=== PATIENT | male | born 1935 | race Caucasian/White ===

== ENCOUNTER 2017-02-05 07:52 | Day surgery (SDC) | payer MEDICARE ==
[~2017-02-05 07:52] MED LIST: Bupivacaine 0.25%/EPINEPHrine 1:200,000 10 ML SDV ONE; Lactated Ringers 1,000 ML IV SCH
[2017-02-05] MEDS ORDERED: Lidocaine 2% 5 ML SDV ONE (08:42)
[2017-02-05] MEDS ORDERED: diphenhydrAMINE 50 MG/ML SDV ONE (08:42)
[2017-02-05] MEDS ORDERED: fentaNYL 100 MCG/2 ML SDV ONE (08:43)
[2017-02-05] MEDS ORDERED: Propofol 200 MG/20 ML SDV ONE (08:43)
[2017-02-05] MEDS ORDERED: Midazolam 1 MG/ML 2 ML SDV ONE (08:43)
--- NOTE | 2017-02-05 10:01 | PCM.PREANE ---
Preanesthetic Assessment - Anesthesia/Transfusion/Family Hx Anesthesia History: Prior Anesthesia Without Reaction Other Type of Anesthesia Reaction Comment: Denies any known problems in the past Family History of Anesthesia Reaction: No Transfusion History: No Prior Transfusion(s) Intubation History: Unknown - Review of Systems General: No Symptoms Pulmonary: No Symptoms Cardiovascular: No Symptoms Gastrointestinal: No Symptoms Neurological: No Symptoms Other: Reports: None - Physical Assessment NPO Status Date: 02/04/17 NPO Status Time: 19:00 O2 Sat by Pulse Oximetry: 94 Respiratory Rate: 16 Vital Signs: Last Vital Signs Temp 36.3 C 02/05/17 08:33 Pulse 71 02/05/17 08:33 Resp 16 02/05/17 08:33 BP 178/62 H 02/05/17 08:33 Pulse Ox 94 L 02/05/17 08:33 Height: 1.75 m Weight: 83.007 kg ASA Class: 3 Mental Status: Alert & Oriented x3 Airway Class: Mallampati = 2 Dentition: Reports: Normal Dentition Thyro-Mental Finger Breadths: 2 Mouth Opening Finger Breadths: 2 ROM/Head Extension: Limited/Partial Lungs: Clear to Auscultation, Normal Respiratory Effort Cardiovascular: Regular Rate, Regular Rhythm - Allergies Allergies/Adverse Reactions: Allergies Allergy/AdvReac Type Severity Reaction Status Date / Time celery [Celery] Allergy Hives Verified 04/12/15 09:06 Penicillins Allergy Rash Verified 04/12/15 09:06 Adhesives Allergy Hives Uncoded 02/23/14 14:38 Leachy Nuts Allergy Hives Uncoded 01/30/17 10:48 Parsley Allergy mild hives Uncoded 01/30/17 10:48 [place] Seeds Allergy Hives Uncoded 02/23/14 14:40 - Blood Blood Available: No - Anesthesia Plan Pre-Op Medication Ordered: None Beta Josh: Metoprolol Med Last Dose Date: 02/04/17 Med Last Dose Time: 18:00 - Acknowledgements Anesthesia Type Planned: MAC Pt an Appropriate Candidate for the Planned Anesthesia: Yes Alternatives and Risks of Anesthesia Discussed w Pt/Guardian: Yes Pt/Guardian Understands and Agrees with Anesthesia Plan: Yes PreAnesthesia Questionnaire HEENT History: Reports: Hard of Hearing, Impaired Vision, Other (See Below) Other HEENT History: 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16, wears glasses , tracey hearing aids Cardiovascular History: Reports: High Cholesterol, Hypertension Gastrointestinal History: Reports: Other (See Below) (h/o tubular adenoma) Genitourinary History: Reports: Prostate Disorder Musculoskeletal History: Reports: Other (See Below) Other Musculoskeletal History: fx fingers Neurological History: Reports: TIA, Other (See Below) (intentional tremor) Other Neuro History: unsteady gait, TIA March,-weaker on left side, also memomy and walk affected Psychiatric History: Reports: Depression Endocrine/Metabolic History: Reports: Diabetes, Type II (for about 10 years, glucose levell 147 today) Hematologic History: Reports: Anemia - Infectious Disease History Infectious Disease History: Reports: Chicken Pox - Past Surgical History HEENT Surgical History: Reports: Cataract Surgery, Eye Surgery, Tonsillectomy Other HEENT Surgeries/Procedures: prostetic left eye, 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, GI Surgical History: Reports: Hernia, Inguinal Other GI Surgeries/Procedures: inguinal hernia repair x2 Male Surgical History: Reports: TURP-Transurethral Resection of Prostate - SUBSTANCE USE Smoking Status *Q: Former Smoker Tobacco Use Within Last Twelve Months: No Days Per Week of Alcohol Use: 7 Number of Drinks Per Day: 3 Total Drinks Per Week: 21 Recreational Drug Use History: No - HOME MEDS Home Medications: Home Meds Furosemide [Lasix] 20 mg PO DAILY 02/23/14 [History] Losartan Potassium 100 mg PO BRK 02/23/14 [History] Metoprolol Tartrate 100 mg PO BID 02/23/14 [History] atorvaSTATin Calcium [Atorvastatin Calcium] 40 mg PO BEDTIME 02/23/14 [History] metFORMIN [Glucophage] 1,000 mg PO BID 02/23/14 [History] Clopidogrel [Plavix] 75 mg PO DAILY #30 tablet 04/13/15 [Rx] Cholecalciferol (Vitamin D3) [Vitamin D3] 2,000 units PO DAILY 01/30/17 [History ] Lutein/Min/Vit C/Vit E Acetate [Ocuvite Lutein] 1 tab PO DAILY 01/30/17 [History ] Polyvinyl Alcohol [Artificial Tears] 1 drop EYEBOTH ASDIRECTED PRN 01/30/17 [ History] SitaGLIPtin [Januvia] 100 mg PO DAILY 01/30/17 [History] Tetrahydrozoline HCl [Visine] 1 drop EYELF ASDIRECTED PRN 01/30/17 [History] prednisoLONE Acetate [Prednisolone Acetate] 1 drop EYERT BID 01/30/17 [History] - CURRENT (IN HOUSE) MEDS Current Meds: Current Medications Lactated Ringer's (Ringers, Lactated) 1,000 mls @ 100 mls/hr IV ASDIRECTED JACOB Last Admin: 02/05/17 08:31 Dose: 100 mls/hr Discontinued Medications Bupivacaine HCl/Epinephrine Bitart (Marcaine 0.25%/Epinephrine 1:200,000) Confirm Administered Dose 20 ml .ROUTE .STK-MED ONE Stop: 02/05/17 07:17 Diphenhydramine HCl (Benadryl) Confirm Administered Dose 50 mg .ROUTE .STK-MED ONE Stop: 02/05/17 08:43 Fentanyl (Sublimaze) Confirm Administered Dose 100 mcg .ROUTE .STK-MED ONE Stop: 02/05/17 08:44 Lidocaine (Xylocaine-Mpf 2%) Confirm Administered Dose 5 ml .ROUTE .STK-MED ONE Stop: 02/05/17 08:43 Midazolam HCl (Versed 1 Mg/Ml) Confirm Administered Dose 2 mg .ROUTE .STK-MED ONE Stop: 02/05/17 08:44 Propofol (Diprivan 20 Ml) Confirm Administered Dose 200 mg .ROUTE .STK-MED ONE Stop: 02/05/17 08:44
[2017-02-05] MEDS ORDERED: Tetracaine 0.5% Ophth Soln 15 ML Bottle ONE (10:56)
[2017-02-05] MEDS ORDERED: Dexamethasone/Tobramycin 0.1-0.3% Ophth Oint 3.5 GM Tube ONE (10:56)
[2017-02-05] MEDS ORDERED: Clindamycin Phosphate in D5W 50 ML ONE (11:16)
[2017-02-05] MEDS ORDERED: Clindamycin Phosphate in D5W 600 MG in Premix Bag 1 BAG IV ONE ×2 (11:16)
--- NOTE | 2017-02-05 12:30 | PCM48HPAN ---
Post Anesthesia Note - EVALUATION WITHIN 48HRS OF ANESTHETIC Vital Signs in Normal Range: Yes Patient Participated in Evaluation: Yes Respiratory Function Stable: Yes Airway Patent: Yes Cardiovascular Function Stable: Yes Hydration Status Stable: Yes Pain Control Satisfactory: Yes Nausea and Vomiting Control Satisfactory: Yes Mental Status Recovered: Yes - COMMENTS/OBSERVATIONS Free Text/Narrative:: no anesthesia problems, patient skipped recovery room phase of postoperative care
[2017-02-05 13:03] VITALS: BP 137/72
--- NOTE | 2017-02-06 16:27 | PCM.OPNOTE ---
- General Post-Op/Procedure Note Date of Surgery/Procedure: 02/05/17 Operative Procedure(s): left lower eyelid tarsal strip Pre Op Diagnosis: left lower eyelid ectropion Post-Op Diagnosis: Same Anesthesia Technique: Local, MAC Primary Surgeon: Flavia Ni Principal Software Architect: Hilda Mcknight Complications: None Condition: Good Free Text/Narrative:: [id number]
--- NOTE | 2017-02-06 22:32 | OR ---
SURGEON: KULDEEP LU MD DATE OF PROCEDURE: 02/05/2017 PREOPERATIVE DIAGNOSIS: Left lower eyelid ectropion. POSTOPERATIVE DIAGNOSIS: Left lower eyelid ectropion. PROCEDURE: Left lower eyelid tarsal strip. ANESTHESIA: Local MAC. CHICKEN STUFFER: Hilda Mcknight PA-C. INDICATIONS: Mr. 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 Risks and benefits of tarsal strip procedure anchoring to the lateral canthus were discussed with him and he was in agreement to proceed. Risks were including, but not limited to, bleeding, infection, damage to underlying or overlying structures, possible need for future interventions and possible scarring. PROCEDURE IN DETAIL: After informed consent was obtained and placed on the chart, the patient was brought to the operating theater and laid in supine position. After adequate local MAC anesthesia was obtained, the area was prepped and draped, and a time- out was completed to confirm side and site. Attention was then paid to the lateral tarsus and a lateral canthotomy was completed and the lateral tarsus was dissected for approximately 1 cm. Once adequately dissected and the mucosa and skin have been removed. This was anchored to the lateral orbital rim using a deep 4-0 Prolene stitch in two horizontal mattress sutures. Once adequately anchored here, the muscle layer was reapproximated with a 4-0 Monocryl and the skin was closed using a 5-0 Chromic stitch in a horizontal mattress fashion. He tolerated this well and all counts of needles were correct at the end of the case. The wound was dressed with TobraDex ointment. FOLLOWUP INSTRUCTIONS: The patient will see us next week in clinic or sooner if any problems, questions, or concerns. HEGGTHE / MODL /[id number]
== END 2017-02-05 12:42 | disposition home or self-care (01) ==
LOC: MW.SDS 07:52
PROVIDERS: ATTEND Plastic Surgery
DX: H02.105 Unspecified ectropion of left lower eyelid (principal); I10 Essential (primary) hypertension; E78.00 Pure hypercholesterolemia, unspecified; F32.9 Major depressive disorder, single episode, unspecified; E11.9 Type 2 diabetes mellitus without complications; Z88.0 Allergy status to penicillin; Z91.018 Allergy to other foods; Z98.890 Other specified postprocedural states; Z87.891 Personal history of nicotine dependence
CPT/HCPCS: 67917; 82962; A9270; J1200; J2250; J3010; J7120; 00140; J2704

== ENCOUNTER 2017-11-29 12:18 | Emergency (ER) | payer MEDICARE, OTHER ==
--- NOTE | 2017-11-29 12:33 | EDM.PDOC ---
ED HPI GENERAL MEDICAL PROBLEM - General Chief Complaint: Back Pain or Injury Stated Complaint: PAIN IN HIS BOTTOM Time Seen by Provider: 11/29/17 12:33 Source of Information: Reports: Patient History Limitations: Reports: No Limitations - History of Present Illness INITIAL COMMENTS - FREE TEXT/NARRATIVE: HISTORY AND PHYSICAL: History of present illness: 82-year-old male presenting emergency department with chief complaint of lower back pain starting this a.m. it 9:30. Patient states that he woke up early this morning and felt fine but then around 9:30 AM began to have right-sided lower back pain. States that he has had back pain before but not as significant as this. He denies any history of trauma to the area but may have twisted wrong. He denies any recent illness, fevers, chills, kidney stones, chest pain, palpitations, shortness of breath, syncopal episodes, focal neurologic deficits. Review of systems: As per history of present illness and below otherwise all systems reviewed and negative. Past medical history: As per history of present illness and as reviewed below otherwise noncontributory. Surgical history: As per history of present illness and as reviewed below otherwise noncontributory. Social history: No reported history of drug or alcohol abuse. Family history: As per history of present illness and as reviewed below otherwise noncontributory. Physical exam: HEENT: Atraumatic, normocephalic, pupils reactive, negative for conjunctival pallor or scleral icterus, mucous membranes moist, throat clear, neck supple, nontender, trachea midline. Lungs: Clear to auscultation, breath sounds equal bilaterally, chest nontender. Heart: S1S2, regular, negative for clicks, rubs, or JVD. Abdomen: Soft, nondistended, nontender. Negative for masses or hepatosplenomegaly. Negative for costovertebral tenderness. Pelvis: Stable nontender. Genitourinary: Deferred. Rectal: Deferred. Extremities: Atraumatic, negative for cords or calf pain. Neurovascular unremarkable. Neuro: Awake, alert, oriented. Cranial nerves II through XII unremarkable. Cerebellum unremarkable. Motor and sensory unremarkable throughout. Exam nonfocal. Back: Patient is tender to palpation along L3-L5 with more tenderness on his right side. There is no significant foraminal episodes or step-offs. There is significant paraspinal muscle spasms along lumbar area. Diagnostics: Lumbar x-ray Therapeutics: Toradol 60 mg IM 1, Flexeril 10 mg by mouth 3 times a day Impression: Lumbar strain Plan: Lumbar x-ray revealed no acute osseous abnormalities. There was significant chronic changes noted. Patient had good relief from the Toradol 60 mg IM. He was discharged with a prescription for Flexeril 10 mg by mouth 3 times a day and instructed to follow-up with his primary care physician Dr. ma. He was also instructed to return to emergency department if he had any new or worsening symptoms. He may need further imaging to define any acute injury such as CT or MRI, however he did not have a traumatic event. Right Low Back Pain Score (Numeric/FACES): 8 - Related Data Allergies Allergy/AdvReac Type Severity Reaction Status Date / Time celery [Celery] Allergy Hives Verified 11/29/17 13:30 Penicillins Allergy Rash Verified 11/29/17 13:30 Adhesives Allergy Hives Uncoded 11/29/17 13:30 Leachy Nuts Allergy Hives Uncoded 11/29/17 13:30 Parsley Allergy mild hives Uncoded 11/29/17 13:30 [place] Seeds Allergy Hives Uncoded 11/29/17 13:30 Home Meds: Home Meds Furosemide [Lasix] 20 mg PO DAILY 02/23/14 [History] Losartan Potassium 100 mg PO BRK 02/23/14 [History] Metoprolol Tartrate 100 mg PO BID 02/23/14 [History] atorvaSTATin Calcium [Atorvastatin Calcium] 40 mg PO BEDTIME 02/23/14 [History] metFORMIN [Glucophage] 1,000 mg PO BID 02/23/14 [History] Clopidogrel [Plavix] 75 mg PO DAILY #30 tablet 04/13/15 [Rx] Cholecalciferol (Vitamin D3) [Vitamin D3] 2,000 units PO DAILY 01/30/17 [History ] Lutein/Min/Vit C/Vit E Acetate [Ocuvite Lutein] 1 tab PO DAILY 01/30/17 [History ] Polyvinyl Alcohol [Artificial Tears] 1 drop EYEBOTH ASDIRECTED PRN 01/30/17 [ History] SitaGLIPtin [Januvia] 100 mg PO DAILY 01/30/17 [History] Tetrahydrozoline HCl [Visine] 1 drop EYELF ASDIRECTED PRN 01/30/17 [History] prednisoLONE Acetate [Prednisolone Acetate] 1 drop EYERT BID 01/30/17 [History] Past Medical History HEENT History: Reports: Hard of Hearing, Impaired Vision, Other (See Below) Other HEENT History: 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16, wears glasses , tracey hearing aids Cardiovascular History: Reports: High Cholesterol, Hypertension Gastrointestinal History: Reports: Other (See Below) (h/o tubular adenoma) Genitourinary History: Reports: Prostate Disorder Musculoskeletal History: Reports: Other (See Below) Other Musculoskeletal History: fx fingers Neurological History: Reports: TIA, Other (See Below) (intentional tremor) Other Neuro History: unsteady gait, TIA March,-weaker on left side, also memomy and walk affected Psychiatric History: Reports: Depression Endocrine/Metabolic History: Reports: Diabetes, Type II (for about 10 years, glucose levell 147 today) Hematologic History: Reports: Anemia - Infectious Disease History Infectious Disease History: Reports: Chicken Pox - Past Surgical History HEENT Surgical History: Reports: Cataract Surgery, Eye Surgery, Tonsillectomy Other HEENT Surgeries/Procedures: prostetic left eye, 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 ED EXAM, GENERAL - Physical Exam Exam: See Below Course - Vital Signs Last Recorded V/S: Last Vital Signs Temp 98.7 F 11/29/17 13:31 Pulse 73 11/29/17 13:31 Resp 18 11/29/17 13:31 BP 158/50 H 11/29/17 13:31 Pulse Ox 95 11/29/17 13:31 - Orders/Labs/Meds Orders: Active Orders 24 hr Category Date Time Status Lumbar Spine 2 or 3V [CR] Stat Exams 11/29/17 13:46 Taken Meds: Medications Discontinued Medications Generic Name Dose Route Start Last Admin Trade Name Freq PRN Reason Stop Dose Admin Ketorolac Tromethamine 60 mg 11/29/17 13:45 11/29/17 14:07 Toradol IM 11/29/17 13:46 60 mg ONETIME ONE Administration Departure - Departure Time of Disposition: 15:37 Disposition: Home, Self-Care 01 Condition: Good Clinical Impression: Paraspinal muscle spasm, Lumbar back pain with radiculopathy affecting right lower extremity - Discharge Information Referrals: PCP,None [Primary Care Provider] - Forms: ED Department Discharge Additional Instructions: My general discharge The following information is given to patients seen in the emergency department who are being discharged to home. This information is to outline your options for follow-up care. We provide all patients seen in our emergency department with a follow-up referral. The need for follow-up, as well as the timing and circumstances, are variable depending upon the specifics of your emergency department visit. If you don't have a primary care physician on staff, we will provide you with a referral. We always advise you to contact your personal physician following an emergency department visit to inform them of the circumstance of the visit and for follow-up with them and/or the need for any referrals to a consulting specialist. The emergency department will also refer you to a specialist when appropriate. This referral assures that you have the opportunity for follow-up care with a specialist. All of these measure are taken in an effort to provide you with optimal care, which includes your follow-up. Under all circumstances we always encourage you to contact your private physician who remains a resource for coordinating your care. When calling for follow-up care, please make the office aware that this follow-up is from your recent emergency room visit. If for any reason you are refused follow-up, please contact the [facility] Emergency Department at and asked to speak to the emergency department charge nurse. [address] [address] Take Tylenol up to 3000 mg per acute pain. Take Flexeril as prescribed. Return to emergency department if any new or worsening symptoms. Follow-up with her primary care provider on Friday. - My Orders Last 24 Hours: My Active Orders 11/29/17 13:46 Lumbar Spine 2 or 3V [CR] Stat - Assessment/Plan Last 24 Hours: My Active Orders 11/29/17 13:46 Lumbar Spine 2 or 3V [CR] Stat
[2017-11-29] MEDS ORDERED: Ketorolac 60 MG/2 ML SDV IM ONE (13:45)
[2017-11-29 19:35] VITALS: BP 158/55
--- NOTE | 2017-12-01 14:00 | CR ---
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 Site : [id number] Study: XRay Spine Lumbar [id number] 2:33:25 PM Ordering Physician: Kike Casillas Final Report: INDICATION: Low back pain. TECHNIQUE: Lumbar spine 3 view. 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 There is grade 2 anterior listhesis of L5 on S1. Anterior posterior alignment is otherwise maintained. Vertebral body height and contour are preserved without evidence of compression fracture. 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 Moderate to severe loss of intervertebral disc space height at L5-S1. Mild loss of intervertebral disc space height at the L1-L2, L2-L3 and L3-L4. Multilevel facet joint degenerative changes. There is atherosclerotic calcification of the abdominal aorta. The surgical clips overlying the right inguinal region. There are pelvic phleboliths. A 3 mm density in the right mid abdomen is indeterminate in location but may represent a renal calculus. Dictated by Michael Richardson MD @ Nov 29 2017 3:07PM (Electronic Signature) Report Signed by Proxy. LISBETH
== END 2017-11-29 15:49 | disposition home or self-care (01) ==
LOC: MW.ED 12:18
DX: S39.012A Strain of muscle, fascia and tendon of lower back, initial encounter (principal); M54.16 Radiculopathy, lumbar region; I10 Essential (primary) hypertension; E11.9 Type 2 diabetes mellitus without complications; X58.XXXA Exposure to other specified factors, initial encounter; Z91.018 Allergy to other foods; Z88.0 Allergy status to penicillin; Z79.899 Other long term (current) drug therapy; Z79.84 Long term (current) use of oral hypoglycemic drugs
CPT/HCPCS: 72100; 96372; 99283; J1885

== ENCOUNTER 2018-07-30 10:03 | Emergency (ER) | payer MEDICARE ==
[2018-07-30] MEDS ORDERED: Sodium Chloride 0.9% 2.5 ML Syringe FLUSH PRN (10:07)
[2018-07-30] MEDS ORDERED: Sodium Chloride 0.9% 10 ML Syringe FLUSH PRN (10:07)
--- NOTE | 2018-07-30 10:14 | EDM.PDOC ---
ED HPI GENERAL MEDICAL PROBLEM - General Chief Complaint: Chest Pain Stated Complaint: WEAK, CHEST PAIN AND TROUBLE BREATHING Time Seen by Provider: 07/30/18 10:07 Source of Information: Reports: Patient History Limitations: Reports: No Limitations - History of Present Illness INITIAL COMMENTS - FREE TEXT/NARRATIVE: HISTORY AND PHYSICAL: History of present illness: Patient is an 82-year-old male who presents to the emergency room with multiple complaints. He states he has had sore throat, decreased appetite, fatigue and nausea 7 days. He states over the past week these symptoms have progressively gotten worse. Over the past two days he has developed abdominal pain, midsternal chest pain, and diarrhea over the past 2 days. Complaints of his throat and mouth feeling dry and has difficulty swallowing. States he has decreased his PO intake due to the this difficulty. But does mention he is able to drink scotch in the evenings without difficulty. He denies any recent falls , injuries, or trauma. 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 He denies any fever, chills, cough or shortness of breath. Denies any vomiting, constipation, dysuria. He does see Dr. Newman at [facility] for type 2 diabetes, hypertension, GERD , BPH. He takes multiple medications which he states he has been compliant. Recently had an echocardiogram here by Dr Gutierrez on 04/2018. Review of systems: As per history of present illness and below otherwise all systems reviewed and negative. Past medical history: As per history of present illness and as reviewed below otherwise noncontributory. Surgical history: As per history of present illness and as reviewed below otherwise noncontributory. Social history: See social history for further information Family history: As per history of present illness and as reviewed below otherwise noncontributory. Physical exam: General: Well-developed and well-nourished 82-year-old male. Alert and oriented. Nontoxic appearing and in no acute distress. 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 TMs normal bilaterally, throat clear, neck supple, nontender, trachea midline. No drooling or trismus noted. No meningeal signs. No hot potato voice noted. Lungs: Diminished throughout, breath sounds equal bilaterally, chest nontender. Heart: S1S2, regular rate and rhythm without overt murmur Abdomen: Soft, nondistended, diffuse tenderness throughout. Negative for masses or hepatosplenomegaly. Negative for costovertebral tenderness. Pelvis: Stable nontender. Genitourinary: Deferred. Rectal: Deferred. Skin: Intact, warm, dry. No lesions or rashes noted. Extremities: Atraumatic, moves all per self, negative for cords or calf pain. Neurovascular unremarkable. Neuro: Awake, alert, oriented. Cranial nerves II through XII unremarkable. Cerebellum unremarkable. Motor and sensory unremarkable throughout. Exam nonfocal. Notes: Lab work is unremarkable with the exception of elevated BNP. Negative strep and influenza screening. And chest x-ray shows mild left basilar atelectasis and borderline cardiomegaly Vital signs remain stable. He has not taken his morning medications; will give him IV Lasix while here. Patient reports he no longer has chest pain and declines the Nitropaste. CT of the abdomen and pelvis shows no acute findings. Small trace bilateral pleural effusions. Mild cardiomegaly. Diverticulosis without diverticulitis. Vital signs remain stable. He states he has no pain at this time. I did offer him admission for continued observation, he states he feels better and would like to be discharged to home. Supportive care measures were reviewed and discussed. He voices understanding and is agreeable to plan of care. Denies any further questions or concerns at this time. Dr Newman was informed of this patient's ER visit. He would like the patient to follow up with him in the next 1-2 weeks. Patient continues to decline admission as he would like to return home. He states he is asymptomatic. Vital signs are stable. Diagnostics: CBC, CMP, troponin, EKG, BNP, stool study, chest x-ray, CT abd/pelvis Therapeutics: Saline lock, ASA, Lasix Prescription: None Impression: Chest pain, unknown etiology Viral Illness Nonspecific abdominal pain Plan: 1. Keep taking your medications as prescribed. 2. Increase your oral fluids to prevent dehydration. 3. Please follow up with Dr Newman in the next 1-2 days. Return to the ED as needed as discussed. Definitive disposition and diagnosis as appropriate pending reevaluation and review of above. chest, abdomen Pain Score (Numeric/FACES): 2 - Related Data Allergies Allergy/AdvReac Type Severity Reaction Status Date / Time celery [Celery] Allergy Hives Verified 07/30/18 10:12 Penicillins Allergy Rash Verified 07/30/18 10:12 Adhesives Allergy Hives Uncoded 07/30/18 10:12 Leachy Nuts Allergy Hives Uncoded 07/30/18 10:12 Parsley Allergy mild hives Uncoded 07/30/18 10:12 Stanly Seeds Allergy Hives Uncoded 07/30/18 10:12 Home Meds: Home Meds Furosemide [Lasix] 20 mg PO DAILY 02/23/14 [History] Losartan Potassium 100 mg PO BRK 02/23/14 [History] Metoprolol Tartrate 100 mg PO BID 02/23/14 [History] atorvaSTATin Calcium [Atorvastatin Calcium] 40 mg PO BEDTIME 02/23/14 [History] metFORMIN [Glucophage] 1,000 mg PO BID 02/23/14 [History] Clopidogrel [Plavix] 75 mg PO DAILY #30 tablet 04/13/15 [Rx] Cholecalciferol (Vitamin D3) [Vitamin D3] 2,000 units PO DAILY 01/30/17 [History ] Polyvinyl Alcohol [Artificial Tears] 1 drop EYEBOTH ASDIRECTED PRN 01/30/17 [ History] SitaGLIPtin [Januvia] 100 mg PO DAILY 01/30/17 [History] Tetrahydrozoline HCl [Visine] 1 drop EYERT ASDIRECTED PRN 01/30/17 [History] Vit A/Vit C/Vit E/Zinc/Copper [Preservision] 1 tab PO BID 07/30/18 [History] Past Medical History HEENT History: Reports: Hard of Hearing, Impaired Vision, Other (See Below) Other HEENT History: 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16, wears glasses , tracey hearing aids Cardiovascular History: Reports: High Cholesterol, Hypertension Gastrointestinal History: Reports: Other (See Below) Genitourinary History: Reports: Prostate Disorder Musculoskeletal History: Reports: Other (See Below) Other Musculoskeletal History: fx fingers Neurological History: Reports: TIA, Other (See Below) Other Neuro History: unsteady gait, TIA March,-weaker on left side, also memomy and walk affected Psychiatric History: Reports: Depression Endocrine/Metabolic History: Reports: Diabetes, Type II Hematologic History: Reports: Anemia - Infectious Disease History Infectious Disease History: Reports: Chicken Pox - Past Surgical History HEENT Surgical History: Reports: Cataract Surgery, Eye Surgery, Tonsillectomy Other HEENT Surgeries/Procedures: prostetic left eye, 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 ED EXAM, GENERAL - Physical Exam Exam: See Below (See dictation) Course - Vital Signs Last Recorded V/S: Last Vital Signs Temp 98.8 F 07/30/18 12:00 Pulse 70 07/30/18 12:00 Resp 16 07/30/18 12:00 BP 133/60 07/30/18 12:00 Pulse Ox 93 L 07/30/18 12:00 - Orders/Labs/Meds Orders: Active Orders 24 hr Category Date Time Status EKG Documentation Completion [RC] STAT Care 07/30/18 10:07 Active Hemoccult [Fecal Occult Blood Collection] [] Care 07/30/18 10:32 Active ASDIRECTED RT Aerosol Therapy [RC] ASDIRECTED Care 07/30/18 10:39 Active CULTURE STOOL + CAMPY+SHIGATOX [] Stat Lab 07/30/18 10:09 Ordered CULTURE STREP A CONFIRMATION [] Stat Lab 07/30/18 10:34 Results STREP SCRN A RAPID W CULT CONF [] Stat Lab 07/30/18 10:34 Results Sodium Chloride 0.9% [Saline Flush] Med 07/30/18 10:07 Active 10 ml FLUSH ASDIRECTED PRN Sodium Chloride 0.9% [Saline Flush] Med 07/30/18 10:07 Active 2.5 ml FLUSH ASDIRECTED PRN Saline Lock Insert [OM.PC] Stat Oth 07/30/18 10:07 Ordered Medication Orders Sodium Chloride (Saline Flush) 10 ml FLUSH ASDIRECTED PRN PRN Reason: Keep Vein Open Sodium Chloride (Saline Flush) 2.5 ml FLUSH ASDIRECTED PRN PRN Reason: Keep Vein Open Labs: Laboratory Tests 07/30/18 07/30/18 07/30/18 Range/Units 10:13 10:13 10:13 WBC 7.25 (4.0-11.0) K/uL RBC 4.24 L (4.50-5.90) M/uL Hgb 13.8 (13.0-17.0) g/dL Hct 41.9 (38.0-50.0) % MCV 98.8 H (80.0-98.0) fL MCH 32.5 H (27.0-32.0) pg MCHC 32.9 (31.0-37.0) g/dL RDW Std Deviation 51.4 (28.0-62.0) fl RDW Coeff of Theresa 14 (11.0-15.0) % Plt Count 197 (150-400) K/uL MPV 9.60 (7.40-12.00) fL Neut % (Auto) 75.0 (48.0-80.0) % Lymph % (Auto) 15.4 L (16.0-40.0) % [place] % (Auto) 9.2 (0.0-15.0) % Eos % (Auto) 0.3 (0.0-7.0) % Baso % (Auto) 0.1 (0.0-1.5) % Neut # (Auto) 5.4 (1.4-5.7) K/uL Lymph # (Auto) 1.1 (0.6-2.4) K/uL [place] # (Auto) 0.7 (0.0-0.8) K/uL Eos # (Auto) 0.0 (0.0-0.7) K/uL Baso # (Auto) 0.0 (0.0-0.1) K/uL Nucleated RBC % 0.0 /100WBC Nucleated RBCs # 0 K/uL Sodium 140 (136-148) mmol/L Potassium 4.1 (3.5-5.1) mmol/L Chloride 102 (98-107) mmol/L Carbon Dioxide 25.6 (21.0-32.0) mmol/L BUN 17 (7.0-18.0) mg/dL Creatinine 1.2 (0.8-1.3) mg/dL Est Cr Clr Drug Dosing 46.71 mL/min Estimated GFR (MDRD) 58.1 ml/min Glucose 189 H (74-106) mg/dL Calcium 9.6 (8.5-10.1) mg/dL Total Bilirubin 0.8 (0.2-1.0) mg/dL AST 19 (15-37) IU/L ALT 26 (14-63) IU/L Alkaline Phosphatase 106 (46-116) U/L Troponin I < 0.050 (0.000-0.056) ng/mL B-Natriuretic Peptide 3499 H (<100) PG/ML Total Protein 7.4 (6.4-8.2) g/dL Albumin 3.9 (3.4-5.0) g/dL Globulin 3.5 (2.6-4.0) g/dL Albumin/Globulin Ratio 1.1 (0.9-1.6) Amylase 38 (25-115) U/L Lipase 91 (73-393) U/L Meds: Medications Generic Name Dose Route Start Last Admin Trade Name Freq PRN Reason Stop Dose Admin Sodium Chloride 10 ml 07/30/18 10:07 Saline Flush FLUSH ASDIRECTED PRN Keep Vein Open Sodium Chloride 2.5 ml 07/30/18 10:07 Saline Flush FLUSH ASDIRECTED PRN Keep Vein Open Discontinued Medications Generic Name Dose Route Start Last Admin Trade Name Freq PRN Reason Stop Dose Admin Albuterol/Ipratropium 3 ml 07/30/18 10:39 07/30/18 10:52 Duoneb 3.0-0.5 Mg/3 Ml NEB 07/30/18 10:40 3 ml ONETIME ONE Administration Aspirin 324 mg 07/30/18 10:15 07/30/18 10:26 Aspirin PO 07/30/18 10:16 324 mg ONETIME ONE Administration Furosemide 20 mg 07/30/18 11:41 07/30/18 12:02 Lasix IVPUSH 07/30/18 11:42 20 mg NOW ONE Administration Nitroglycerin 1 gm 07/30/18 11:42 07/30/18 12:05 Nitro-Bid 2% TOP 07/30/18 11:43 Not Given ONETIME ONE Departure - Departure Time of Disposition: 13:37 Disposition: Home, Self-Care 01 Clinical Impression: Nonspecific abdominal pain, Viral illness Chest pain, unspecified Qualifiers: Chest pain type: unspecified Qualified Code(s): R07.9 - Chest pain, unspecified Instructions: Nonspecific Chest Pain, Abdominal Pain, Adult, [id number], Viral Illness, Adult Referrals: PCP,Unknown [Ordering Only Provider] - Forms: ED Department Discharge Additional Instructions: The following information is given to patients seen in the emergency department who are being discharged to home. This information is to outline your options for follow-up care. We provide all patients seen in our emergency department with a follow-up referral. The need for follow-up, as well as the timing and circumstances, are variable depending upon the specifics of your emergency department visit. If you don't have a primary care physician on staff, we will provide you with a referral. We always advise you to contact your personal physician following an emergency department visit to inform them of the circumstance of the visit and for follow-up with them and/or the need for any referrals to a consulting specialist. The emergency department will also refer you to a specialist when appropriate. This referral assures that you have the opportunity for follow-up care with a specialist. All of these measure are taken in an effort to provide you with optimal care, which includes your follow-up. Under all circumstances we always encourage you to contact your private physician who remains a resource for coordinating your care. When calling for follow-up care, please make the office aware that this follow-up is from your recent emergency room visit. If for any reason you are refused follow-up, please contact the [facility] Emergency Department at and asked to speak to the emergency department charge nurse. [facility] [address] [place] [phone] [address] [address] 1. Keep taking your medications as prescribed. 2. Increase your oral fluids to prevent dehydration. 3. Please follow up with Dr Newman in the next 1-2 days. Return to the ED as needed as discussed. - My Orders Last 24 Hours: My Active Orders 07/30/18 10:07 EKG Documentation Completion [RC] STAT Sodium Chloride 0.9% [Saline Flush] 10 ml FLUSH ASDIRECTED PRN Sodium Chloride 0.9% [Saline Flush] 2.5 ml FLUSH ASDIRECTED PRN Saline Lock Insert [OM.PC] Stat 07/30/18 10:09 CULTURE STOOL + CAMPY+SHIGATOX [RM] Stat 07/30/18 10:32 Hemoccult [Fecal Occult Blood Collection] [RC] ASDIRECTED 07/30/18 10:34 CULTURE STREP A CONFIRMATION [RM] Stat STREP SCRN A RAPID W CULT CONF [RM] Stat 07/30/18 10:39 RT Aerosol Therapy [RC] ASDIRECTED - Assessment/Plan Last 24 Hours: My Active Orders 07/30/18 10:07 EKG Documentation Completion [RC] STAT Sodium Chloride 0.9% [Saline Flush] 10 ml FLUSH ASDIRECTED PRN Sodium Chloride 0.9% [Saline Flush] 2.5 ml FLUSH ASDIRECTED PRN Saline Lock Insert [OM.PC] Stat 07/30/18 10:09 CULTURE STOOL + CAMPY+SHIGATOX [RM] Stat 07/30/18 10:32 Hemoccult [Fecal Occult Blood Collection] [RC] ASDIRECTED 07/30/18 10:34 CULTURE STREP A CONFIRMATION [RM] Stat STREP SCRN A RAPID W CULT CONF [RM] Stat 07/30/18 10:39 RT Aerosol Therapy [RC] ASDIRECTED
[2018-07-30] MEDS ORDERED: Aspirin 81 MG Tab.Chew PO ONE (10:15)
[2018-07-30] MEDS ORDERED: Albuterol/Ipratropium 3.0-0.5 MG/3 ML Neb Soln NEB ONE (10:39)
[2018-07-30 10:53] LABS: CHLORIDE,CL 102 mmol/L (98-107); SODIUM,NA 140 mmol/L (136-148)
--- NOTE | 2018-07-30 10:57 | CR ---
EXAMINATION: Portable chest radiograph. HISTORY: Chest pain. FINDINGS: The trachea is midline. The heart is borderline in size. The cardiomediastinal silhouette is within normal limits. No pulmonary infiltrates, effusions or pneumothorax. Mild left basilar atelectasis. Aortic calcifications are noted. Osseous structures appear unremarkable. IMPRESSION: 1. Mild left basilar atelectasis and borderline cardiomegaly.
[2018-07-30] MEDS ORDERED: Furosemide 40 MG/4 ML VIAL IVPUSH ONE (11:41)
[2018-07-30] MEDS ORDERED: Nitroglycerin 2% Oint 1 GM UD Packet TOP ONE (11:42)
--- NOTE | 2018-07-30 13:20 | CT ---
CT of the abdomen and pelvis without contrast. HISTORY: Pain TECHNIQUE: Axial CT images were obtained of the abdomen and pelvis without contrast. Coronal and sagittal reconstructions obtained. FINDINGS: There were small bilateral pleural effusions with adjacent atelectasis. The heart is borderline in size. Coronary artery calcifications are noted. The liver, spleen, adrenal glands, and pancreas appear unremarkable for noncontrast examination. The gallbladder appears normal. There is no bulky retroperitoneal lymphadenopathy. No abdominal ascites. Aortic calcifications are noted. There are no calcifications noted within the kidneys or along the courses of the ureters bilaterally. The large and small bowel are normal in caliber without evidence of obstruction. The appendix appears normal. Diverticulosis without evidence of diverticulitis. There is no bulky pelvic lymphadenopathy. No free fluid. No free air. Small bilateral urinary diverticulum noted. Degenerative changes noted within the lumbar spine without acute osseous abnormalities. IMPRESSION: 1. No acute findings within the abdomen or pelvis. 2. Small/trace bilateral pleural effusions. 3. Mild cardiomegaly. 4. Diverticulosis without evidence of diverticulitis.
[2018-07-30 13:48] VITALS: BP 132/63
== END 2018-07-30 13:44 | disposition home or self-care (01) ==
LOC: MW.ED 10:03
DX: R07.9 Chest pain, unspecified (principal); B34.9 Viral infection, unspecified; R10.9 Unspecified abdominal pain; E78.00 Pure hypercholesterolemia, unspecified; I10 Essential (primary) hypertension; E11.9 Type 2 diabetes mellitus without complications; Z79.84 Long term (current) use of oral hypoglycemic drugs; Z79.899 Other long term (current) drug therapy
CPT/HCPCS: 36415; 71045; 74176; 80053; 82150; 83690; 83880; 84484; 85025; 87081; 87804; 87880; 93005; 94640; 96374; 99285; A9270; J1940; 99284; J7620-GY

== ENCOUNTER 2019-04-29 03:47 | Inpatient (IN) | payer MEDICARE ==
[2019-04-29] MEDS ORDERED: Sodium Chloride 0.9% 2.5 ML Syringe FLUSH PRN (03:53)
[2019-04-29] MEDS ORDERED: Sodium Chloride 0.9% 10 ML Syringe FLUSH PRN (03:53)
--- NOTE | 2019-04-29 04:13 | CR ---
INDICATION: Cough TECHNIQUE: Chest radiograph 1 view COMPARISON: 07/30/2018 FINDINGS: Mediastinum: The mediastinum is normal in appearance. The heart silhouette is normal in size and morphology. Lung: Consolidation in the left lung base is present with minimal right basilar atelectasis and small lung volumes. The apices are obscured by the patient`s chin. Small left pleural effusion noted. No pneumothorax is identified. Bone and Soft tissue: A chondroid type lesion is present within the left proximal humerus measuring 1.3 cm. IMPRESSIONS: 1. Consolidation in the left lung base is present with minimal right basilar atelectasis and small lung volumes. These findings can be seen with atelectasis and/or pneumonia. 2. Small left pleural effusion noted. Dictated by Blu Aparicio MD @ 04/29/2019 4:12:00 AM Dictated by: Blu Aparicio MD @ 04/29/2019 04:12:05 (Electronically Signed)
[2019-04-29 04:24] LABS: BLOOD UREA NITROGEN,BUN 20 mg/dL (7.0-18.0); CARBON DIOXIDE,CO2 27.5 mmol/L (21.0-32.0); CHLORIDE,CL 104 mmol/L (98-107); GLUCOSE RANDOM 209 mg/dL (74-106); SODIUM,NA 139 mmol/L (136-148)
[2019-04-29] MEDS ORDERED: Furosemide 40 MG/4 ML VIAL IVPUSH ONE (04:59)
[2019-04-29] MEDS ORDERED: Enoxaparin 100 MG/1 ML Syringe SUBCUT ONE (05:13)
--- NOTE | 2019-04-29 05:13 | EDM.PDOC ---
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 His description seems more consistent with paroxysmal nocturnal dyspnea he states he has peripheral edema that is somewhat chronic. Review of systems: As per history of present illness and below otherwise all systems reviewed and negative. Past medical history: As per history of present illness and as reviewed below otherwise noncontributory. Surgical history: As per history of present illness and as reviewed below otherwise noncontributory. Social history: No reported history of drug or alcohol abuse. Family history: As per history of present illness and as reviewed below otherwise noncontributory. Physical exam: HEENT: Atraumatic, normocephalic, pupils reactive, negative for conjunctival pallor or scleral icterus, mucous membranes moist, throat clear, neck supple, nontender, trachea midline. Lungs: Diminished with bibasilar crackles, breath sounds equal bilaterally, chest nontender. Heart: S1S2, irregularly irregular, negative for clicks, rubs, or JVD. Abdomen: Soft, nondistended, nontender. Negative for masses or hepatosplenomegaly. Negative for costovertebral tenderness. Pelvis: Stable nontender. Genitourinary: Deferred. Rectal: Deferred. Extremities: Atraumatic, negative for cords or calf pain. Neurovascular unremarkable. 3+ edema noted Neuro: Awake, alert, oriented. Follows commands moves all extremities limited grossly nonfocal exam Diagnostics: CBC CMP troponin PT/INR chest x-ray EKG BNP CTA chest was cultured 2 UA and lactic acid Therapeutics: IV O2 monitor Lasix 40 mg IV Impression: #1 congestive heart failure #2 atrial fibrillation Definitive disposition and diagnosis as appropriate pending reevaluation and review of above. no pain Pain Score (Numeric/FACES): 0 - Related Data Allergies Allergy/AdvReac Type Severity Reaction Status Date / Time celery [Celery] Allergy Hives Verified 04/29/19 04:01 Penicillins Allergy Rash Verified 04/29/19 04:01 Adhesives Allergy Hives Uncoded 04/29/19 04:01 Leachy Nuts Allergy Hives Uncoded 04/29/19 04:01 Parsley Allergy mild hives Uncoded 04/29/19 04:01 [place] Seeds Allergy Hives Uncoded 04/29/19 04:01 Home Meds: Home Meds Furosemide [Lasix] 20 mg PO DAILY 02/23/14 [History] Losartan Potassium 100 mg PO BRK 02/23/14 [History] Metoprolol Tartrate 100 mg PO BID 02/23/14 [History] atorvaSTATin Calcium [Atorvastatin Calcium] 40 mg PO BEDTIME 02/23/14 [History] metFORMIN [Glucophage] 1,000 mg PO BID 02/23/14 [History] Clopidogrel [Plavix] 75 mg PO DAILY #30 tablet 04/13/15 [Rx] Cholecalciferol (Vitamin D3) [Vitamin D3] 2,000 units PO DAILY 01/30/17 [History ] Polyvinyl Alcohol [Artificial Tears] 1 drop EYEBOTH ASDIRECTED PRN 01/30/17 [ History] SitaGLIPtin [Januvia] 100 mg PO DAILY 01/30/17 [History] Tetrahydrozoline HCl [Visine] 1 drop EYERT ASDIRECTED PRN 01/30/17 [History] Vit A/Vit C/Vit E/Zinc/Copper [Preservision] 1 tab PO BID 07/30/18 [History] Past Medical History HEENT History: Reports: Hard of Hearing, Impaired Vision, Other (See Below) Other HEENT History: 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16, wears glasses , tracey hearing aids Cardiovascular History: Reports: High Cholesterol, Hypertension Respiratory History: Reports: None Gastrointestinal History: Reports: Other (See Below) Genitourinary History: Reports: Prostate Disorder Musculoskeletal History: Reports: Other (See Below) Other Musculoskeletal History: fx fingers Neurological History: Reports: TIA, Other (See Below) Other Neuro History: unsteady gait, TIA March,-weaker on left side, also memomy and walk affected Psychiatric History: Reports: Depression Endocrine/Metabolic History: Reports: Diabetes, Type II Hematologic History: Reports: Anemia - Infectious Disease History Infectious Disease History: Reports: Chicken Pox, Mumps - Past Surgical History HEENT Surgical History: Reports: Cataract Surgery, Eye Surgery, Tonsillectomy Other HEENT Surgeries/Procedures: prostetic left eye, 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, GI Surgical History: Reports: Hernia, Inguinal Other GI Surgeries/Procedures: inguinal hernia repair x2 Male Surgical History: Reports: TURP-Transurethral Resection of Prostate Social & Family History - Family History Family Medical History: Noncontributory Cardiac: Reports: Hypertension, CA - Tobacco Use Smoking Status *Q: Former Smoker Used Tobacco, but Quit: Yes Month/Year Tobacco Last Used: 1994 - Caffeine Use Caffeine Use: Reports: None - Recreational Drug Use Recreational Drug Use: No ED ROS GENERAL - Review of Systems Review Of Systems: Comprehensive ROS is negative, except as noted in HPI. ED EXAM, GENERAL - Physical Exam Exam: See Below (See dictation) Course - Vital Signs Last Recorded V/S: Last Vital Signs Temp 36.1 C 04/29/19 05:11 Pulse 92 04/29/19 05:11 Resp 16 04/29/19 05:11 BP 145/70 H 04/29/19 05:11 Pulse Ox 96 04/29/19 05:11 - Orders/Labs/Meds Orders: Active Orders 24 hr Category Date Time Status Cardiac Monitoring [RC] . DIRECTED Care 04/29/19 03:53 Active EKG Documentation Completion [RC] STAT Care 04/29/19 03:53 Active EKG Documentation Completion [RC] STAT Care 04/29/19 05:15 Active Oxygen Therapy, ED [RC] ASDIRECTED Care 04/29/19 03:53 Active Ang Chest [CT] Stat Exams 04/29/19 05:03 Ordered CULTURE BLOOD [BC] Stat Lab 04/29/19 05:23 Received CULTURE BLOOD [BC] Stat Lab 04/29/19 05:34 Received UA RFX ADRIANO AND CULT IF INDIC [URIN] Stat Lab 04/29/19 05:11 Ordered Sodium Chloride 0.9% [Saline Flush] Med 04/29/19 03:53 Active 10 ml FLUSH ASDIRECTED PRN Sodium Chloride 0.9% [Saline Flush] Med 04/29/19 03:53 Active 2.5 ml FLUSH ASDIRECTED PRN Blood Culture x2 Reflex Set [OM.PC] Stat Oth 04/29/19 05:11 Ordered Saline Lock Insert [OM.PC] Stat Oth 04/29/19 03:53 Ordered Medication Orders Sodium Chloride (Saline Flush) 10 ml FLUSH ASDIRECTED PRN PRN Reason: Keep Vein Open Last Admin: 04/29/19 05:10 Dose: 10 ml Sodium Chloride (Saline Flush) 2.5 ml FLUSH ASDIRECTED PRN PRN Reason: Keep Vein Open Last Admin: 04/29/19 05:10 Dose: 2.5 ml Labs: Laboratory Tests 04/29/19 04/29/19 04/29/19 Range/Units 03:55 03:55 03:55 WBC 5.88 (4.0-11.0) K/uL RBC 3.79 L (4.50-5.90) M/uL Hgb 12.2 L (13.0-17.0) g/dL Hct 37.2 L (38.0-50.0) % MCV 98.2 H (80.0-98.0) fL MCH 32.2 H (27.0-32.0) pg MCHC 32.8 (31.0-37.0) g/dL RDW Std Deviation 51.9 (28.0-62.0) fl RDW Coeff of Theresa 15 (11.0-15.0) % Plt Count 207 (150-400) K/uL MPV 9.30 (7.40-12.00) fL Neut % (Auto) 65.1 (48.0-80.0) % Lymph % (Auto) 18.4 (16.0-40.0) % [place] % (Auto) 12.1 (0.0-15.0) % Eos % (Auto) 4.1 (0.0-7.0) % Baso % (Auto) 0.3 (0.0-1.5) % Neut # (Auto) 3.8 (1.4-5.7) K/uL Lymph # (Auto) 1.1 (0.6-2.4) K/uL [place] # (Auto) 0.7 (0.0-0.8) K/uL Eos # (Auto) 0.2 (0.0-0.7) K/uL Baso # (Auto) 0.0 (0.0-0.1) K/uL Nucleated RBC % 0.0 /100WBC Nucleated RBCs # 0 K/uL INR 1.06 ABG pH (7.35-7.45) ABG pCO2 (35-45) mmHG ABG pO2 (75-100) mmHG ABG HCO3 (22-26) mEq/L ABG Total CO2 ABG Base Excess (-2.0-2.0) Lactate (0.20-2.00) mmol/L Sodium 139 (136-148) mmol/L Potassium 5.0 (3.5-5.1) mmol/L Chloride 104 (98-107) mmol/L Carbon Dioxide 27.5 (21.0-32.0) mmol/L BUN 20 H (7.0-18.0) mg/dL Creatinine 1.1 (0.8-1.3) mg/dL Est Cr Clr Drug Dosing 51.78 mL/min Estimated GFR (MDRD) > 60.0 ml/min Glucose 209 H (74-106) mg/dL Calcium 8.6 (8.5-10.1) mg/dL Total Bilirubin 0.6 (0.2-1.0) mg/dL AST 46 H (15-37) IU/L ALT 62 (14-63) IU/L Alkaline Phosphatase 165 H (46-116) U/L Troponin I < 0.050 (0.000-0.056) ng/mL B-Natriuretic Peptide (<100) PG/ML Total Protein 6.3 L (6.4-8.2) g/dL Albumin 3.1 L (3.4-5.0) g/dL Globulin 3.2 (2.6-4.0) g/dL Albumin/Globulin Ratio 1.0 (0.9-1.6) 04/29/19 04/29/19 04/29/19 Range/Units 03:55 04:10 05:34 WBC (4.0-11.0) K/uL RBC (4.50-5.90) M/uL Hgb (13.0-17.0) g/dL Hct (38.0-50.0) % MCV (80.0-98.0) fL MCH (27.0-32.0) pg MCHC (31.0-37.0) g/dL RDW Std Deviation (28.0-62.0) fl RDW Coeff of Theresa (11.0-15.0) % Plt Count (150-400) K/uL MPV (7.40-12.00) fL Neut % (Auto) (48.0-80.0) % Lymph % (Auto) (16.0-40.0) % [place] % (Auto) (0.0-15.0) % Eos % (Auto) (0.0-7.0) % Baso % (Auto) (0.0-1.5) % Neut # (Auto) (1.4-5.7) K/uL Lymph # (Auto) (0.6-2.4) K/uL [place] # (Auto) (0.0-0.8) K/uL Eos # (Auto) (0.0-0.7) K/uL Baso # (Auto) (0.0-0.1) K/uL Nucleated RBC % /100WBC Nucleated RBCs # K/uL INR ABG pH 7.442 (7.35-7.45) ABG pCO2 35 (35-45) mmHG ABG pO2 54 L (75-100) mmHG ABG HCO3 24 (22-26) mEq/L ABG Total CO2 21.8 ABG Base Excess 0.2 (-2.0-2.0) Lactate 1.5 (0.20-2.00) mmol/L Sodium (136-148) mmol/L Potassium (3.5-5.1) mmol/L Chloride (98-107) mmol/L Carbon Dioxide (21.0-32.0) mmol/L BUN (7.0-18.0) mg/dL Creatinine (0.8-1.3) mg/dL Est Cr Clr Drug Dosing mL/min Estimated GFR (MDRD) ml/min Glucose (74-106) mg/dL Calcium (8.5-10.1) mg/dL Total Bilirubin (0.2-1.0) mg/dL AST (15-37) IU/L ALT (14-63) IU/L Alkaline Phosphatase (46-116) U/L Troponin I (0.000-0.056) ng/mL B-Natriuretic Peptide 1593 H (<100) PG/ML Total Protein (6.4-8.2) g/dL Albumin (3.4-5.0) g/dL Globulin (2.6-4.0) g/dL Albumin/Globulin Ratio (0.9-1.6) Meds: Medications Generic Name Dose Route Start Last Admin Trade Name Freq PRN Reason Stop Dose Admin Sodium Chloride 10 ml 04/29/19 03:53 04/29/19 05:10 Saline Flush FLUSH 10 ml ASDIRECTED PRN Administration Keep Vein Open Sodium Chloride 2.5 ml 04/29/19 03:53 04/29/19 05:10 Saline Flush FLUSH 2.5 ml ASDIRECTED PRN Administration Keep Vein Open Discontinued Medications Generic Name Dose Route Start Last Admin Trade Name Freq PRN Reason Stop Dose Admin Enoxaparin Sodium 90 mg 04/29/19 05:13 04/29/19 05:34 Lovenox SUBCUT 04/29/19 05:14 90 mg ONETIME ONE Administration Furosemide 40 mg 04/29/19 04:59 04/29/19 05:08 Lasix IVPUSH 04/29/19 05:00 40 mg NOW ONE Administration Departure - Departure Time of Disposition: 05:12 Disposition: Refer to Observation Condition: Fair Clinical Impression: Congestive heart failure, Atrial fibrillation - Discharge Information Referrals: PCP,None [Primary Care Provider] - Forms: ED Department Discharge - My Orders Last 24 Hours: My Active Orders 04/29/19 03:53 Cardiac Monitoring [RC] . DIRECTED EKG Documentation Completion [RC] STAT Oxygen Therapy, ED [RC] ASDIRECTED Sodium Chloride 0.9% [Saline Flush] 10 ml FLUSH ASDIRECTED PRN Sodium Chloride 0.9% [Saline Flush] 2.5 ml FLUSH ASDIRECTED PRN Saline Lock Insert [OM.PC] Stat 04/29/19 05:03 Ang Chest [CT] Stat 04/29/19 05:11 UA RFX ADRIANO AND CULT IF INDIC [URIN] Stat Blood Culture x2 Reflex Set [OM.PC] Stat 04/29/19 05:15 EKG Documentation Completion [RC] STAT 04/29/19 05:23 CULTURE BLOOD [BC] Stat 04/29/19 05:34 CULTURE BLOOD [BC] Stat - Assessment/Plan Last 24 Hours: My Active Orders 04/29/19 03:53 Cardiac Monitoring [RC] . DIRECTED EKG Documentation Completion [RC] STAT Oxygen Therapy, ED [RC] ASDIRECTED Sodium Chloride 0.9% [Saline Flush] 10 ml FLUSH ASDIRECTED PRN Sodium Chloride 0.9% [Saline Flush] 2.5 ml FLUSH ASDIRECTED PRN Saline Lock Insert [OM.PC] Stat 04/29/19 05:03 Ang Chest [CT] Stat 04/29/19 05:11 UA RFX ADRIANO AND CULT IF INDIC [URIN] Stat Blood Culture x2 Reflex Set [OM.PC] Stat 04/29/19 05:15 EKG Documentation Completion [RC] STAT 04/29/19 05:23 CULTURE BLOOD [BC] Stat 04/29/19 05:34 CULTURE BLOOD [BC] Stat
[2019-04-29] MEDS ORDERED: Iopamidol 755 MG/ML 500 ML Multipack Bottle IVPUSH STA (05:59)
--- NOTE | 2019-04-29 06:40 | CT ---
INDICATION: Rule out PE. Shortness of breath. COMPARISON: 04/29/2019 chest x-ray. TECHNIQUE: CT angiography of the chest with contrast, PE protocol. 50 cc of Isovue-370 was administered. FINDINGS: Motion artifact limits the sensitivity of the examination, particularly in the lung bases. Linear peripheral filling defect in the right lower lobe branch of the pulmonary artery (series 401 image 411) which could represent chronic PE. Otherwise no evidence of acute PE within the limitations of the examination. Main pulmonary artery is enlarged which can be seen with pulmonary artery hypertension. Cardiomegaly. No pericardial effusion. Prominent borderline enlarged precarinal lymph node measuring 9 mm in short axis. Enlarged right hilar lymph node measuring 1.6 cm in short axis. Imaged portion of the upper abdomen is unremarkable. Bones are demineralized. Degenerative changes in the spine. Calcified left proximal humerus lesion is again noted, likely representing benign chondroid lesion such as enchondroma. Moderate bilateral pleural effusions. Interlobular septal thickening and ground-glass opacities likely representing pulmonary edema. No pneumothorax is identified. Central airways are patent. Bibasilar compressive atelectasis. IMPRESSION: 1. Linear peripheral filling defect in right lower lobe branch of the pulmonary artery, likely due to chronic PE. Otherwise no evidence of acute PE within limitations of the examination. 2. Cardiomegaly, bilateral pleural effusions, and pulmonary edema consistent with CHF. 3. Enlarged main pulmonary artery which can be seen with pulmonary hypertension. 4. Nonspecific enlarged right hilar lymph node. Please note that all CT scans at this facility use dose modulation, iterative reconstruction, and/or weight-based dosing when appropriate to reduce radiation dose to as low as reasonably achievable. Dictated by Obdulio Marsh MD @ Apr 29 2019 6:25AM Signed by Dr. Obdulio Marsh @ Apr 29 2019 6:37AM
[2019-04-29] MEDS ORDERED: Albuterol/Ipratropium 3.0-0.5 MG/3 ML Neb Soln NEB PRN (06:58)
[2019-04-29] MEDS: Furosemide 40 MG/4 ML VIAL IVPUSH SCH ×2 (09:14→21:33)
[2019-04-29] MEDS: Aspirin 81 MG Tab.Chew PO SCH (09:14)
[2019-04-29] MEDS ORDERED: Ondansetron 4 MG/2 ML SDV IVPUSH PRN (09:37)
[2019-04-29] MEDS ORDERED: Ibuprofen 600 MG Tab PO PRN (09:37)
[2019-04-29] MEDS ORDERED: Ondansetron 4 MG Tab.DIS PO PRN (09:37)
[2019-04-29 10:20] LABS: HEMOGLOBIN A1C 7.1 % (4.5-6.2)
--- NOTE | 2019-04-29 12:26 | PCM.HP.2 ---
<Eliazar Moran - Last Filed: 04/29/19 20:45> H&P History of Present Illness - General Date of Service: 04/29/19 Admit Problem/Dx: Admission Diagnosis/Problem Admission Diagnosis/Problem Congestive heart failure - History of Present Illness Initial Comments - Free Text/Narative: 83 y/o male with history of diastolic heart failure, DM2, TIA who presented to the ER complaining of worsening weakness, shortness of breath. Patient states that he stopped taking his medications about 1 week ago since he was not feeling well and thought his medications were causing him to feel bad. In the ER , he was found to have BNP 1500 and chest xray showed vascular congestion. In addition, EKG showed new onset AFib. Troponin was negative. CT chest was performed which showed a chronic right pulmonary embolism. Has been having worsening lower extremity edema. Denies any chest pain. No abdominal pain, dysuria, diarrhea. No blood in stool. no pain Pain Score (Numeric/FACES): 0 - Related Data Allergies/Adverse Reactions: Allergies Allergy/AdvReac Type Severity Reaction Status Date / Time celery [Celery] Allergy Hives Verified 04/29/19 07:43 Penicillins Allergy Rash Verified 04/29/19 07:43 Adhesives Allergy Hives Uncoded 04/29/19 07:43 Jeruselum Artichoke Allergy Hives Uncoded 04/29/19 07:43 Leachy Nuts Allergy Hives Uncoded 04/29/19 07:43 Parsley Allergy mild hives Uncoded 04/29/19 07:43 [place] Seeds Allergy Hives Uncoded 04/29/19 07:43 Home Medications: Home Meds Furosemide [Lasix] 10 mg PO DAILY 02/23/14 [History] Losartan Potassium 100 mg PO BRK 02/23/14 [History] Metoprolol Tartrate 100 mg PO BID 02/23/14 [History] atorvaSTATin Calcium [Atorvastatin Calcium] 40 mg PO BEDTIME 02/23/14 [History] metFORMIN [Glucophage] 1,000 mg PO BID 02/23/14 [History] Clopidogrel [Plavix] 75 mg PO DAILY #30 tablet 04/13/15 [Rx] Cholecalciferol (Vitamin D3) [Vitamin D3] 2,000 units PO DAILY 01/30/17 [History ] SitaGLIPtin [Januvia] 100 mg PO DAILY 01/30/17 [History] Tetrahydrozoline HCl [Visine] 1 drop EYERT ASDIRECTED PRN 01/30/17 [History] Vit A/Vit C/Vit E/Zinc/Copper [Preservision] 1 tab PO BID 07/30/18 [History] Past Medical History HEENT History: Reports: Hard of Hearing, Impaired Vision, Macular Degeneration, Other (See Below) Other HEENT History: 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16, wears glasses , tracey hearing aids Cardiovascular History: Reports: High Cholesterol, Hypertension, [place] Respiratory History: Reports: None Gastrointestinal History: Reports: Other (See Below) Other Gastrointestinal History: hernia Genitourinary History: Reports: Prostate Disorder Musculoskeletal History: Reports: Other (See Below) Other Musculoskeletal History: fx fingers Neurological History: Reports: TIA, Other (See Below) Other Neuro History: unsteady gait, TIA March,-weaker on left side, also memomy and walk affected Psychiatric History: Reports: Depression Endocrine/Metabolic History: Reports: Diabetes, Type II Hematologic History: Reports: Anemia - Infectious Disease History Infectious Disease History: Reports: Chicken Pox, Mumps - Past Surgical History HEENT Surgical History: Reports: Cataract Surgery, Eye Surgery, Tonsillectomy Other HEENT Surgeries/Procedures: prostetic left eye, 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, GI Surgical History: Reports: Hernia, Inguinal Other GI Surgeries/Procedures: inguinal hernia repair x2 Male Surgical History: Reports: TURP-Transurethral Resection of Prostate Social & Family History - Family History Family Medical History: Noncontributory Cardiac: Reports: Hypertension, [place] - Tobacco Use Smoking Status *Q: Former Smoker Used Tobacco, but Quit: Yes Month/Year Tobacco Last Used: 1994 - Caffeine Use Caffeine Use: Reports: Coffee - Recreational Drug Use Recreational Drug Use: No H&P Review of Systems - Review of Systems: Review Of Systems: Comprehensive ROS is negative, except as noted in HPI. Exam - Exam Exam: See Below - Vital Signs Vital Signs: Last Vital Signs Temp 36.4 C 04/29/19 11:00 Pulse 94 04/29/19 11:00 Resp 20 04/29/19 11:00 BP 147/64 H 04/29/19 11:00 Pulse Ox 97 04/29/19 11:00 Weight: 84.504 kg - Exam General: Alert, Oriented, Cooperative HEENT: Mucosa Moist & Deport Lungs: Other (bilateral crackles, no wheezing) Cardiovascular: Regular Rate, Irregular Rhythm GI/Abdominal Exam: Normal Bowel Sounds, Soft, Non-Tender, No Distention Extremities: Other (2+ pittined edema up to knees) Skin: Warm, Dry - Patient Data Lab Results Last 24 hrs: Laboratory Results - last 24 hr 04/29/19 04/29/19 04/29/19 Range/Units 03:55 03:55 03:55 WBC 5.88 (4.0-11.0) K/uL RBC 3.79 L (4.50-5.90) M/uL Hgb 12.2 L (13.0-17.0) g/dL Hct 37.2 L (38.0-50.0) % MCV 98.2 H (80.0-98.0) fL MCH 32.2 H (27.0-32.0) pg MCHC 32.8 (31.0-37.0) g/dL RDW Std Deviation 51.9 (28.0-62.0) fl RDW Coeff of Theresa 15 (11.0-15.0) % Plt Count 207 (150-400) K/uL MPV 9.30 (7.40-12.00) fL Neut % (Auto) 65.1 (48.0-80.0) % Lymph % (Auto) 18.4 (16.0-40.0) % [place] % (Auto) 12.1 (0.0-15.0) % Eos % (Auto) 4.1 (0.0-7.0) % Baso % (Auto) 0.3 (0.0-1.5) % Neut # (Auto) 3.8 (1.4-5.7) K/uL Lymph # (Auto) 1.1 (0.6-2.4) K/uL [place] # (Auto) 0.7 (0.0-0.8) K/uL Eos # (Auto) 0.2 (0.0-0.7) K/uL Baso # (Auto) 0.0 (0.0-0.1) K/uL Nucleated RBC % 0.0 /100WBC Nucleated RBCs # 0 K/uL INR 1.06 ABG pH (7.35-7.45) ABG pCO2 (35-45) mmHG ABG pO2 (75-100) mmHG ABG HCO3 (22-26) mEq/L ABG Total CO2 ABG Base Excess (-2.0-2.0) Lactate (0.20-2.00) mmol/L Sodium 139 (136-148) mmol/L Potassium 5.0 (3.5-5.1) mmol/L Chloride 104 (98-107) mmol/L Carbon Dioxide 27.5 (21.0-32.0) mmol/L BUN 20 H (7.0-18.0) mg/dL Creatinine 1.1 (0.8-1.3) mg/dL Est Cr Clr Drug Dosing 51.78 mL/min Estimated GFR (MDRD) > 60.0 ml/min Glucose 209 H (74-106) mg/dL POC Glucose (60-110) mg/dL Hemoglobin A1c (4.5-6.2) % Calcium 8.6 (8.5-10.1) mg/dL Total Bilirubin 0.6 (0.2-1.0) mg/dL AST 46 H (15-37) IU/L ALT 62 (14-63) IU/L Alkaline Phosphatase 165 H (46-116) U/L Troponin I < 0.050 (0.000-0.056) ng/mL B-Natriuretic Peptide (<100) PG/ML Total Protein 6.3 L (6.4-8.2) g/dL Albumin 3.1 L (3.4-5.0) g/dL Globulin 3.2 (2.6-4.0) g/dL Albumin/Globulin Ratio 1.0 (0.9-1.6) Triglycerides (0-200) mg/dL Cholesterol (50-200) mg/dL LDL Cholesterol, Calc (60-180) mg/dL VLDL Cholesterol (5-55) mg/dL HDL Cholesterol (40-60) mg/dL Cholesterol/HDL Ratio (3.3-6.0) TSH 3rd Generation (0.36-3.74) uIU/mL Urine Color Urine Appearance Urine pH (5.0-8.0) Ur Specific [place] (1.001-1.035) Urine Protein (NEGATIVE) mg/dL Urine Glucose (UA) (NEGATIVE) mg/dL Urine Ketones (NEGATIVE) mg/dL Urine Occult Blood (NEGATIVE) Urine Nitrite (NEGATIVE) Urine Bilirubin (NEGATIVE) Urine Urobilinogen (<2.0) EU/dL Ur Leukocyte Esterase (NEGATIVE) Urine RBC (0-2/HPF) Urine WBC (0-5/HPF) Ur Epithelial Cells (NONE-FEW) Urine Bacteria (NEGATIVE) 04/29/19 04/29/19 04/29/19 Range/Units 03:55 03:55 04:10 WBC (4.0-11.0) K/uL RBC (4.50-5.90) M/uL Hgb (13.0-17.0) g/dL Hct (38.0-50.0) % MCV (80.0-98.0) fL MCH (27.0-32.0) pg MCHC (31.0-37.0) g/dL RDW Std Deviation (28.0-62.0) fl RDW Coeff of Theresa (11.0-15.0) % Plt Count (150-400) K/uL MPV (7.40-12.00) fL Neut % (Auto) (48.0-80.0) % Lymph % (Auto) (16.0-40.0) % [place] % (Auto) (0.0-15.0) % Eos % (Auto) (0.0-7.0) % Baso % (Auto) (0.0-1.5) % Neut # (Auto) (1.4-5.7) K/uL Lymph # (Auto) (0.6-2.4) K/uL [place] # (Auto) (0.0-0.8) K/uL Eos # (Auto) (0.0-0.7) K/uL Baso # (Auto) (0.0-0.1) K/uL Nucleated RBC % /100WBC Nucleated RBCs # K/uL INR ABG pH 7.442 (7.35-7.45) ABG pCO2 35 (35-45) mmHG ABG pO2 54 L (75-100) mmHG ABG HCO3 24 (22-26) mEq/L ABG Total CO2 21.8 ABG Base Excess 0.2 (-2.0-2.0) Lactate (0.20-2.00) mmol/L Sodium (136-148) mmol/L Potassium (3.5-5.1) mmol/L Chloride (98-107) mmol/L Carbon Dioxide (21.0-32.0) mmol/L BUN (7.0-18.0) mg/dL Creatinine (0.8-1.3) mg/dL Est Cr Clr Drug Dosing mL/min Estimated GFR (MDRD) ml/min Glucose (74-106) mg/dL POC Glucose (60-110) mg/dL Hemoglobin A1c (4.5-6.2) % Calcium (8.5-10.1) mg/dL Total Bilirubin (0.2-1.0) mg/dL AST (15-37) IU/L ALT (14-63) IU/L Alkaline Phosphatase (46-116) U/L Troponin I (0.000-0.056) ng/mL B-Natriuretic Peptide 1593 H (<100) PG/ML Total Protein (6.4-8.2) g/dL Albumin (3.4-5.0) g/dL Globulin (2.6-4.0) g/dL Albumin/Globulin Ratio (0.9-1.6) Triglycerides 77 (0-200) mg/dL Cholesterol 145 (50-200) mg/dL LDL Cholesterol, Calc 83 (60-180) mg/dL VLDL Cholesterol 15 (5-55) mg/dL HDL Cholesterol 47 (40-60) mg/dL Cholesterol/HDL Ratio 3.1 L (3.3-6.0) TSH 3rd Generation 5.98 H (0.36-3.74) uIU/mL Urine Color Urine Appearance Urine pH (5.0-8.0) Ur Specific [place] (1.001-1.035) Urine Protein (NEGATIVE) mg/dL Urine Glucose (UA) (NEGATIVE) mg/dL Urine Ketones (NEGATIVE) mg/dL Urine Occult Blood (NEGATIVE) Urine Nitrite (NEGATIVE) Urine Bilirubin (NEGATIVE) Urine Urobilinogen (<2.0) EU/dL Ur Leukocyte Esterase (NEGATIVE) Urine RBC (0-2/HPF) Urine WBC (0-5/HPF) Ur Epithelial Cells (NONE-FEW) Urine Bacteria (NEGATIVE) 04/29/19 04/29/19 04/29/19 Range/Units 05:34 06:12 07:54 WBC (4.0-11.0) K/uL RBC (4.50-5.90) M/uL Hgb (13.0-17.0) g/dL Hct (38.0-50.0) % MCV (80.0-98.0) fL MCH (27.0-32.0) pg MCHC (31.0-37.0) g/dL RDW Std Deviation (28.0-62.0) fl RDW Coeff of Theresa (11.0-15.0) % Plt Count (150-400) K/uL MPV (7.40-12.00) fL Neut % (Auto) (48.0-80.0) % Lymph % (Auto) (16.0-40.0) % [place] % (Auto) (0.0-15.0) % Eos % (Auto) (0.0-7.0) % Baso % (Auto) (0.0-1.5) % Neut # (Auto) (1.4-5.7) K/uL Lymph # (Auto) (0.6-2.4) K/uL [place] # (Auto) (0.0-0.8) K/uL Eos # (Auto) (0.0-0.7) K/uL Baso # (Auto) (0.0-0.1) K/uL Nucleated RBC % /100WBC Nucleated RBCs # K/uL INR ABG pH (7.35-7.45) ABG pCO2 (35-45) mmHG ABG pO2 (75-100) mmHG ABG HCO3 (22-26) mEq/L ABG Total CO2 ABG Base Excess (-2.0-2.0) Lactate 1.5 (0.20-2.00) mmol/L Sodium (136-148) mmol/L Potassium (3.5-5.1) mmol/L Chloride (98-107) mmol/L Carbon Dioxide (21.0-32.0) mmol/L BUN (7.0-18.0) mg/dL Creatinine (0.8-1.3) mg/dL Est Cr Clr Drug Dosing mL/min Estimated GFR (MDRD) ml/min Glucose (74-106) mg/dL POC Glucose 184 H (60-110) mg/dL Hemoglobin A1c (4.5-6.2) % Calcium (8.5-10.1) mg/dL Total Bilirubin (0.2-1.0) mg/dL AST (15-37) IU/L ALT (14-63) IU/L Alkaline Phosphatase (46-116) U/L Troponin I (0.000-0.056) ng/mL B-Natriuretic Peptide (<100) PG/ML Total Protein (6.4-8.2) g/dL Albumin (3.4-5.0) g/dL Globulin (2.6-4.0) g/dL Albumin/Globulin Ratio (0.9-1.6) Triglycerides (0-200) mg/dL Cholesterol (50-200) mg/dL LDL Cholesterol, Calc (60-180) mg/dL VLDL Cholesterol (5-55) mg/dL HDL Cholesterol (40-60) mg/dL Cholesterol/HDL Ratio (3.3-6.0) TSH 3rd Generation (0.36-3.74) uIU/mL Urine Color YELLOW Urine Appearance SLT CLOUDY Urine pH 6.0 (5.0-8.0) Ur Specific [place] 1.010 (1.001-1.035) Urine Protein NEGATIVE (NEGATIVE) mg/dL Urine Glucose (UA) 100 H (NEGATIVE) mg/dL Urine Ketones NEGATIVE (NEGATIVE) mg/dL Urine Occult Blood NEGATIVE (NEGATIVE) Urine Nitrite NEGATIVE (NEGATIVE) Urine Bilirubin NEGATIVE (NEGATIVE) Urine Urobilinogen 0.2 (<2.0) EU/dL Ur Leukocyte Esterase MODERATE H (NEGATIVE) Urine RBC 0-2 (0-2/HPF) Urine WBC 1-5 (0-5/HPF) Ur Epithelial Cells OCCASIONAL (NONE-FEW) Urine Bacteria FEW (NEGATIVE) 04/29/19 04/29/19 Range/Units 09:45 11:42 WBC (4.0-11.0) K/uL RBC (4.50-5.90) M/uL Hgb (13.0-17.0) g/dL Hct (38.0-50.0) % MCV (80.0-98.0) fL MCH (27.0-32.0) pg MCHC (31.0-37.0) g/dL RDW Std Deviation (28.0-62.0) fl RDW Coeff of Theresa (11.0-15.0) % Plt Count (150-400) K/uL MPV (7.40-12.00) fL Neut % (Auto) (48.0-80.0) % Lymph % (Auto) (16.0-40.0) % [place] % (Auto) (0.0-15.0) % Eos % (Auto) (0.0-7.0) % Baso % (Auto) (0.0-1.5) % Neut # (Auto) (1.4-5.7) K/uL Lymph # (Auto) (0.6-2.4) K/uL [place] # (Auto) (0.0-0.8) K/uL Eos # (Auto) (0.0-0.7) K/uL Baso # (Auto) (0.0-0.1) K/uL Nucleated RBC % /100WBC Nucleated RBCs # K/uL INR ABG pH (7.35-7.45) ABG pCO2 (35-45) mmHG ABG pO2 (75-100) mmHG ABG HCO3 (22-26) mEq/L ABG Total CO2 ABG Base Excess (-2.0-2.0) Lactate (0.20-2.00) mmol/L Sodium (136-148) mmol/L Potassium (3.5-5.1) mmol/L Chloride (98-107) mmol/L Carbon Dioxide (21.0-32.0) mmol/L BUN (7.0-18.0) mg/dL Creatinine (0.8-1.3) mg/dL Est Cr Clr Drug Dosing mL/min Estimated GFR (MDRD) ml/min Glucose (74-106) mg/dL POC Glucose 165 H (60-110) mg/dL Hemoglobin A1c 7.1 H (4.5-6.2) % Calcium (8.5-10.1) mg/dL Total Bilirubin (0.2-1.0) mg/dL AST (15-37) IU/L ALT (14-63) IU/L Alkaline Phosphatase (46-116) U/L Troponin I (0.000-0.056) ng/mL B-Natriuretic Peptide (<100) PG/ML Total Protein (6.4-8.2) g/dL Albumin (3.4-5.0) g/dL Globulin (2.6-4.0) g/dL Albumin/Globulin Ratio (0.9-1.6) Triglycerides (0-200) mg/dL Cholesterol (50-200) mg/dL LDL Cholesterol, Calc (60-180) mg/dL VLDL Cholesterol (5-55) mg/dL HDL Cholesterol (40-60) mg/dL Cholesterol/HDL Ratio (3.3-6.0) TSH 3rd Generation (0.36-3.74) uIU/mL Urine Color Urine Appearance Urine pH (5.0-8.0) Ur Specific [place] (1.001-1.035) Urine Protein (NEGATIVE) mg/dL Urine Glucose (UA) (NEGATIVE) mg/dL Urine Ketones (NEGATIVE) mg/dL Urine Occult Blood (NEGATIVE) Urine Nitrite (NEGATIVE) Urine Bilirubin (NEGATIVE) Urine Urobilinogen (<2.0) EU/dL Ur Leukocyte Esterase (NEGATIVE) Urine RBC (0-2/HPF) Urine WBC (0-5/HPF) Ur Epithelial Cells (NONE-FEW) Urine Bacteria (NEGATIVE) Result Diagrams: 04/29/19 03:55 04/29/19 03:55 Florentino Results Last 24 hrs: Microbiology 04/29/19 03:55 Influenza Type A Antigen Screen - Final Nasopharyngeal Swab NEGATIVE INFLUENZA A VIRUS AG REFERENCE RANGE: NEGATIVE Influenza Type B Antigen Screen - Final NEGATIVE INFLUENZA B VIRUS AG REFERENCE RANGE: NEGATIVE Problem List Initiated/Reviewed/Updated: Yes Orders Last 24hrs: Active Orders 24 hr Category Date Time Status Patient Status [ADT] Stat ADT 04/29/19 05:46 Active Antiembolic Devices [RC] PER UNIT ROUTINE Care 04/29/19 09:13 Active Cardiac Monitoring [RC] . DIRECTED Care 04/29/19 03:53 Active Daily Weight [Height and Weight] [RC] DAILY Care 04/29/19 09:39 Active Intake and Output Strict [RC] ASDIRECTED Care 04/29/19 09:39 Active Intake and Output [RC] QSHIFT Care 04/29/19 09:37 Active Notify Provider Consults [RC] ASDIRECTED Care 04/29/19 09:18 Active Oxygen Therapy [RC] PRN Care 04/29/19 09:37 Active RT Aerosol Therapy [RC] ASDIRECTED Care 04/29/19 06:59 Active Up With Assistance [RC] ASDIRECTED Care 04/29/19 09:37 Active VTE/DVT Education [RC] PER UNIT ROUTINE Care 04/29/19 09:37 Active Vital Signs [RC] Q4H Care 04/29/19 07:00 Active Vital Signs [RC] Q4H Care 04/29/19 09:37 Active Consult to Physician [CONS] Urgent Cons 04/29/19 09:17 Active ADA Diabetic [[place] [employer] Diet] [DIET Diet 04/29/19 Breakfast Active ] Low Sodium [Sodium Restricted Diet] [DIET] Diet 04/29/19 Breakfast Active Echo Comp wo Cont [US] Urgent Exams 04/29/19 09:15 Taken CULTURE BLOOD [BC] Stat Lab 04/29/19 05:23 Received CULTURE BLOOD [BC] Stat Lab 04/29/19 05:34 Received CULTURE URINE [RM] Stat Lab 04/29/19 06:12 Received Albuterol/Ipratropium [DuoNeb 3.0-0.5 MG/3 ML] Med 04/29/19 06:58 Active 3 ml NEB Q6HRRT PRN Aspirin Med 04/29/19 09:00 Active 81 mg PO DAILY Enoxaparin [Lovenox] Med 04/29/19 18:00 Active 90 mg SUBCUT Q12H Furosemide [Lasix] Med 04/29/19 09:00 Active 40 mg IVPUSH BID Ibuprofen [Motrin] Med 04/29/19 09:37 Active 600 mg PO Q6H PRN Insulin Aspart [NovoLOG] Med 04/29/19 11:30 Active See Protocol SUBCUT TIDAC Ondansetron [Zofran ODT] Med 04/29/19 09:37 Active 4 mg PO Q4H PRN Ondansetron [Zofran] Med 04/29/19 09:37 Active 4 mg IVPUSH Q4H PRN Sodium Chloride 0.9% [Saline Flush] Med 04/29/19 03:53 Active 10 ml FLUSH ASDIRECTED PRN Sodium Chloride 0.9% [Saline Flush] Med 04/29/19 03:53 Active 2.5 ml FLUSH ASDIRECTED PRN Blood Culture x2 Reflex Set [OM.PC] Stat Oth 04/29/19 05:11 Ordered Saline Lock Insert [OM.PC] Stat Oth 04/29/19 03:53 Ordered SPRING Hose [Antiembolic Hose] [OM.PC] Routine Oth 04/29/19 09:13 Ordered Resuscitation Status Routine Resus Stat 04/29/19 09:37 Ordered Medication Orders Albuterol/Ipratropium (Duoneb 3.0-0.5 Mg/3 Ml) 3 ml NEB Q6HRRT PRN PRN Reason: Shortness of Breath Aspirin (Aspirin) 81 mg PO DAILY [facility] Last Admin: 04/29/19 09:14 Dose: 81 mg Enoxaparin Sodium (Lovenox) 90 mg SUBCUT Q12H JACOB Furosemide (Lasix) 40 mg IVPUSH BID [facility] Last Admin: 04/29/19 09:14 Dose: 40 mg Ibuprofen (Motrin) 600 mg PO Q6H PRN PRN Reason: Pain (mild 1-3) Insulin Aspart (Novolog) 0 unit SUBCUT TIDAC JACOB; Protocol Ondansetron HCl (Zofran Odt) 4 mg PO Q4H PRN PRN Reason: nausea, able to take PO Ondansetron HCl (Zofran) 4 mg IVPUSH Q4H PRN PRN Reason: Nausea Sodium Chloride (Saline Flush) 10 ml FLUSH ASDIRECTED PRN PRN Reason: Keep Vein Open Last Admin: 04/29/19 05:10 Dose: 10 ml Sodium Chloride (Saline Flush) 2.5 ml FLUSH ASDIRECTED PRN PRN Reason: Keep Vein Open Last Admin: 04/29/19 05:10 Dose: 2.5 ml Assessment/Plan Comment:: A: 1. Acute CHF exacerbation with preserved EF 2. New onset Afib, rate controlled 3. Chronic right pulmonary embolism 4. Diabetes type 2 5. UTI 6. Hx of TIA on plavix, aspirin P: 1. CHF exacerbation- lasix 40 mg IV BID, strict I/O, fluid restriction 2 L/day, daily weights. 2. New onset AFib. Not sure how long patient has had Afib. Possibly due to CHF exacerbation. Will continue to monitor for now. Will continue with full dose lovenox BID for anticougulation and will switch to either NOAC or warfarin. Will discontinue plavix for now. 3. chronic PE- full dose lovenox BID for now and will plan to switch to NOAC or warfarin. 4. UTI- start ceftriaxone IV Q24H, pending urine culture. dispo: 1-2 days <Mt Jose - Last Filed: 05/01/19 09:40> H&P History of Present Illness - General Admit Problem/Dx: Admission Diagnosis/Problem Admission Diagnosis/Problem Congestive heart failure Exam - Vital Signs Vital Signs: Last Vital Signs Temp 36.0 C 05/01/19 08:00 Pulse 91 05/01/19 09:00 Resp 18 05/01/19 08:00 BP 156/67 H 05/01/19 09:00 Pulse Ox 97 05/01/19 08:00 - Patient Data Lab Results Last 24 hrs: Laboratory Results - last 24 hr 04/30/19 04/30/19 05/01/19 Range/Units 11:46 17:03 05:30 WBC 4.28 (4.0-11.0) K/uL RBC 3.51 L (4.50-5.90) M/uL Hgb 11.2 L (13.0-17.0) g/dL Hct 34.4 L (38.0-50.0) % MCV 98.0 (80.0-98.0) fL MCH 31.9 (27.0-32.0) pg MCHC 32.6 (31.0-37.0) g/dL RDW Std Deviation 52.1 (28.0-62.0) fl RDW Coeff of Theresa 15 (11.0-15.0) % Plt Count 184 (150-400) K/uL MPV 9.20 (7.40-12.00) fL Neut % (Auto) 62.9 (48.0-80.0) % Lymph % (Auto) 20.8 (16.0-40.0) % [place] % (Auto) 11.7 (0.0-15.0) % Eos % (Auto) 4.4 (0.0-7.0) % Baso % (Auto) 0.2 (0.0-1.5) % Neut # (Auto) 2.7 (1.4-5.7) K/uL Lymph # (Auto) 0.9 (0.6-2.4) K/uL [place] # (Auto) 0.5 (0.0-0.8) K/uL Eos # (Auto) 0.2 (0.0-0.7) K/uL Baso # (Auto) 0.0 (0.0-0.1) K/uL Nucleated RBC % 0.0 /100WBC Nucleated RBCs # 0 K/uL Sodium (136-148) mmol/L Potassium (3.5-5.1) mmol/L Chloride (98-107) mmol/L Carbon Dioxide (21.0-32.0) mmol/L BUN (7.0-18.0) mg/dL Creatinine (0.8-1.3) mg/dL Est Cr Clr Drug Dosing mL/min Estimated GFR (MDRD) ml/min Glucose (74-106) mg/dL POC Glucose 168 H 133 H (60-110) mg/dL Calcium (8.5-10.1) mg/dL Total Bilirubin (0.2-1.0) mg/dL AST (15-37) IU/L ALT (14-63) IU/L Alkaline Phosphatase (46-116) U/L Total Protein (6.4-8.2) g/dL Albumin (3.4-5.0) g/dL Globulin (2.6-4.0) g/dL Albumin/Globulin Ratio (0.9-1.6) 05/01/19 05/01/19 Range/Units 05:30 06:14 WBC (4.0-11.0) K/uL RBC (4.50-5.90) M/uL Hgb (13.0-17.0) g/dL Hct (38.0-50.0) % MCV (80.0-98.0) fL MCH (27.0-32.0) pg MCHC (31.0-37.0) g/dL RDW Std Deviation (28.0-62.0) fl RDW Coeff of Theresa (11.0-15.0) % Plt Count (150-400) K/uL MPV (7.40-12.00) fL Neut % (Auto) (48.0-80.0) % Lymph % (Auto) (16.0-40.0) % [place] % (Auto) (0.0-15.0) % Eos % (Auto) (0.0-7.0) % Baso % (Auto) (0.0-1.5) % Neut # (Auto) (1.4-5.7) K/uL Lymph # (Auto) (0.6-2.4) K/uL [place] # (Auto) (0.0-0.8) K/uL Eos # (Auto) (0.0-0.7) K/uL Baso # (Auto) (0.0-0.1) K/uL Nucleated RBC % /100WBC Nucleated RBCs # K/uL Sodium 141 (136-148) mmol/L Potassium 4.6 (3.5-5.1) mmol/L Chloride 104 (98-107) mmol/L Carbon Dioxide 31.6 (21.0-32.0) mmol/L BUN 22 H (7.0-18.0) mg/dL Creatinine 1.1 (0.8-1.3) mg/dL Est Cr Clr Drug Dosing 50.09 mL/min Estimated GFR (MDRD) > 60.0 ml/min Glucose 170 H (74-106) mg/dL POC Glucose 162 H (60-110) mg/dL Calcium 8.3 L (8.5-10.1) mg/dL Total Bilirubin 0.6 (0.2-1.0) mg/dL AST 13 L (15-37) IU/L ALT 33 (14-63) IU/L Alkaline Phosphatase 123 H (46-116) U/L Total Protein 5.0 L (6.4-8.2) g/dL Albumin 2.7 L (3.4-5.0) g/dL Globulin 2.3 L (2.6-4.0) g/dL Albumin/Globulin Ratio 1.2 (0.9-1.6) Result Diagrams: 05/01/19 05:30 05/01/19 05:30 Florentino Results Last 24 hrs: Microbiology 04/29/19 06:12 Urine Culture - Final Urine, Clean Catch 04/29/19 05:23 Aerobic Blood Culture - Preliminary Blood - Venous NO GROWTH AFTER 2 DAYS Anaerobic Blood Culture - Preliminary NO GROWTH AFTER 2 DAYS 04/29/19 05:34 Aerobic Blood Culture - Preliminary Blood - Venous - Lab Draw NO GROWTH AFTER 2 DAYS Anaerobic Blood Culture - Preliminary NO GROWTH AFTER 2 DAYS Orders Last 24hrs: Active Orders 24 hr Category Date Time Status Apixaban [Eliquis] Med 04/30/19 21:00 Active 5 mg PO BID Furosemide [Lasix] Med 05/01/19 09:00 Active 20 mg PO DAILY Medication Orders Albuterol/Ipratropium (Duoneb 3.0-0.5 Mg/3 Ml) 3 ml NEB Q6HRRT PRN PRN Reason: Shortness of Breath Apixaban (Eliquis) 5 mg PO BID [facility] Last Admin: 05/01/19 08:59 Dose: 5 mg Admin: 04/30/19 21:28 Dose: 5 mg Aspirin (Aspirin) 81 mg PO DAILY [facility] Last Admin: 05/01/19 09:00 Dose: 81 mg Admin: 04/30/19 08:06 Dose: 81 mg Admin: 04/29/19 09:14 Dose: 81 mg Atorvastatin Calcium (Lipitor) 40 mg PO BEDTIME [facility] Last Admin: 04/30/19 21:27 Dose: 40 mg Admin: 04/29/19 21:30 Dose: 40 mg Bisacodyl (Dulcolax) 10 mg PO DAILY PRN PRN Reason: Constipation Last Admin: 04/29/19 21:30 Dose: 10 mg Furosemide (Lasix) 20 mg PO DAILY [facility] Last Admin: 05/01/19 08:59 Dose: 20 mg Ceftriaxone Sodium/Dextrose 1 (gm/ Premix) 50 mls @ 100 mls/hr IV Q24H [facility] Last Admin: 04/30/19 21:34 Dose: 100 mls/hr Infusion: 04/29/19 22:15 Dose: 100 mls/hr Admin: 04/29/19 21:45 Dose: 100 mls/hr Ibuprofen (Motrin) 600 mg PO Q6H PRN PRN Reason: Pain (mild 1-3) Insulin Aspart (Novolog) 0 unit SUBCUT TIDAC [facility]; Protocol Last Admin: 05/01/19 07:43 Dose: 2 units Admin: 04/30/19 17:40 Dose: Not Given Admin: 04/30/19 12:00 Dose: 2 units Admin: 04/30/19 08:05 Dose: 2 units Admin: 04/29/19 17:52 Dose: Not Given Admin: 04/29/19 12:41 Dose: 2 units Losartan Potassium (Cozaar) 100 mg PO BRK [facility] Last Admin: 05/01/19 08:59 Dose: 100 mg Admin: 04/30/19 08:06 Dose: 100 mg Metoprolol Tartrate (Lopressor) 100 mg PO BID JACOB Last Admin: 05/01/19 09:00 Dose: 100 mg Admin: 04/30/19 21:28 Dose: 100 mg Admin: 04/30/19 08:05 Dose: 100 mg Admin: 04/29/19 21:30 Dose: 100 mg Ondansetron HCl (Zofran Odt) 4 mg PO Q4H PRN PRN Reason: nausea, able to take PO Ondansetron HCl (Zofran) 4 mg IVPUSH Q4H PRN PRN Reason: Nausea Tetrahydrozoline Hcl ([Visine] 1 Drop) 0 each EYERT ASDIRECTED PRN PRN Reason: Dry Eyes Polyethylene Glycol (Miralax) 17 gm PO TID PRN PRN Reason: Constipation Last Admin: 04/29/19 21:32 Dose: 17 gm Sodium Chloride (Saline Flush) 10 ml FLUSH ASDIRECTED PRN PRN Reason: Keep Vein Open Last Admin: 04/29/19 05:10 Dose: 10 ml Sodium Chloride (Saline Flush) 2.5 ml FLUSH ASDIRECTED PRN PRN Reason: Keep Vein Open Last Admin: 04/29/19 05:10 Dose: 2.5 ml Assessment/Plan Comment:: I performed a history and physical exam of the patient and discussed management with resident. I have reviewed the residents note and agree with documented findings and plan unless otherwise specified in my note.
[2019-04-29] MEDS ORDERED: TETRAHYDROZOLINE HCL EYERT PRN (12:30)
[2019-04-29] MEDS: Insulin Aspart 100 Units/ML 3 ML Pen SUBCUT SCH ×2 (12:41→17:52)
[2019-04-29] MEDS ORDERED: Enoxaparin 100 MG/1 ML Syringe SUBCUT SCH (18:00)
[2019-04-29] MEDS: Enoxaparin 100 MG/1 ML Syringe SUBCUT SCH (19:17)
[2019-04-29] MEDS ORDERED: Bisacodyl 5 MG Tab PO PRN (21:00)
[2019-04-29] MEDS ORDERED: Polyethylene Glycol 3350 Powder 17 GM Packet PO PRN (21:00)
[2019-04-29] MEDS: Metoprolol Tartrate 50 MG Tab PO SCH (21:30)
[2019-04-29] MEDS: atorvaSTATin 40 MG Tab PO SCH (21:30)
[2019-04-29] MEDS: cefTRIAXone 1 GM in Premix Bag 1 BAG IV SCH (21:45)
[2019-04-30] MEDS: Enoxaparin 100 MG/1 ML Syringe SUBCUT SCH (06:02)
[2019-04-30 06:34] LABS: POTASSIUM,K 4.6 mmol/L (3.5-5.1)
[2019-04-30] MEDS: Insulin Aspart 100 Units/ML 3 ML Pen SUBCUT SCH ×3 (08:05→17:40)
[2019-04-30] MEDS: Metoprolol Tartrate 50 MG Tab PO SCH ×2 (08:05→21:28)
[2019-04-30] MEDS: Furosemide 40 MG/4 ML VIAL IVPUSH SCH (08:05)
[2019-04-30] MEDS: Losartan 50 MG Tab PO SCH (08:06)
[2019-04-30] MEDS: Aspirin 81 MG Tab.Chew PO SCH (08:06)
--- NOTE | 2019-04-30 15:06 | PCM.PN ---
<Eliazar Moran - Last Filed: 04/30/19 16:55> - General Info Date of Service: 04/30/19 Subjective Update: no acute events overnight. diuresing well. feels better this morning. no chest pain. - Patient Data Vitals - Most Recent: Last Vital Signs Temp 36.4 C 04/30/19 13:00 Pulse 85 04/30/19 13:00 Resp 18 04/30/19 13:00 BP 130/58 L 04/30/19 13:00 Pulse Ox 95 04/30/19 13:00 Weight - Most Recent: 79.197 kg I&O - Last 24 Hours: Intake & Output 04/30/19 04/30/19 04/30/19 06:59 14:59 22:59 Intake Total 1090 Output Total 1550 Balance -460 Lab Results Last 24 Hours: Laboratory Results - last 24 hr 04/29/19 04/30/19 04/30/19 Range/Units 17:17 05:50 05:50 WBC 4.69 (4.0-11.0) K/uL RBC 3.61 L (4.50-5.90) M/uL Hgb 11.5 L (13.0-17.0) g/dL Hct 35.5 L (38.0-50.0) % MCV 98.3 H (80.0-98.0) fL MCH 31.9 (27.0-32.0) pg MCHC 32.4 (31.0-37.0) g/dL RDW Std Deviation 51.9 (28.0-62.0) fl RDW Coeff of Theresa 15 (11.0-15.0) % Plt Count 177 (150-400) K/uL MPV 8.80 (7.40-12.00) fL Neut % (Auto) 64.8 (48.0-80.0) % Lymph % (Auto) 18.1 (16.0-40.0) % [place] % (Auto) 12.6 (0.0-15.0) % Eos % (Auto) 4.3 (0.0-7.0) % Baso % (Auto) 0.2 (0.0-1.5) % Neut # (Auto) 3.0 (1.4-5.7) K/uL Lymph # (Auto) 0.9 (0.6-2.4) K/uL [place] # (Auto) 0.6 (0.0-0.8) K/uL Eos # (Auto) 0.2 (0.0-0.7) K/uL Baso # (Auto) 0.0 (0.0-0.1) K/uL Nucleated RBC % 0.0 /100WBC Nucleated RBCs # 0 K/uL Sodium 140 (136-148) mmol/L Potassium 4.6 (3.5-5.1) mmol/L Chloride 104 (98-107) mmol/L Carbon Dioxide 33.0 H (21.0-32.0) mmol/L BUN 21 H (7.0-18.0) mg/dL Creatinine 1.2 (0.8-1.3) mg/dL Est Cr Clr Drug Dosing 45.92 mL/min Estimated GFR (MDRD) 58.0 ml/min Glucose 215 H (74-106) mg/dL POC Glucose 138 H (60-110) mg/dL Calcium 8.6 (8.5-10.1) mg/dL Total Bilirubin 0.6 (0.2-1.0) mg/dL AST 17 (15-37) IU/L ALT 45 (14-63) IU/L Alkaline Phosphatase 132 H (46-116) U/L B-Natriuretic Peptide (<100) PG/ML Total Protein 5.8 L (6.4-8.2) g/dL Albumin 2.8 L (3.4-5.0) g/dL Globulin 3.0 (2.6-4.0) g/dL Albumin/Globulin Ratio 0.9 (0.9-1.6) 04/30/19 04/30/19 04/30/19 Range/Units 05:50 06:32 11:46 WBC (4.0-11.0) K/uL RBC (4.50-5.90) M/uL Hgb (13.0-17.0) g/dL Hct (38.0-50.0) % MCV (80.0-98.0) fL MCH (27.0-32.0) pg MCHC (31.0-37.0) g/dL RDW Std Deviation (28.0-62.0) fl RDW Coeff of Theresa (11.0-15.0) % Plt Count (150-400) K/uL MPV (7.40-12.00) fL Neut % (Auto) (48.0-80.0) % Lymph % (Auto) (16.0-40.0) % [place] % (Auto) (0.0-15.0) % Eos % (Auto) (0.0-7.0) % Baso % (Auto) (0.0-1.5) % Neut # (Auto) (1.4-5.7) K/uL Lymph # (Auto) (0.6-2.4) K/uL [place] # (Auto) (0.0-0.8) K/uL Eos # (Auto) (0.0-0.7) K/uL Baso # (Auto) (0.0-0.1) K/uL Nucleated RBC % /100WBC Nucleated RBCs # K/uL Sodium (136-148) mmol/L Potassium (3.5-5.1) mmol/L Chloride (98-107) mmol/L Carbon Dioxide (21.0-32.0) mmol/L BUN (7.0-18.0) mg/dL Creatinine (0.8-1.3) mg/dL Est Cr Clr Drug Dosing mL/min Estimated GFR (MDRD) ml/min Glucose (74-106) mg/dL POC Glucose 184 H 168 H (60-110) mg/dL Calcium (8.5-10.1) mg/dL Total Bilirubin (0.2-1.0) mg/dL AST (15-37) IU/L ALT (14-63) IU/L Alkaline Phosphatase (46-116) U/L B-Natriuretic Peptide 1573 H (<100) PG/ML Total Protein (6.4-8.2) g/dL Albumin (3.4-5.0) g/dL Globulin (2.6-4.0) g/dL Albumin/Globulin Ratio (0.9-1.6) Florentino Results Last 24 Hours: Microbiology 04/29/19 05:23 Aerobic Blood Culture - Preliminary Blood - Venous NO GROWTH AFTER 1 DAY Anaerobic Blood Culture - Preliminary NO GROWTH AFTER 1 DAY 04/29/19 05:34 Aerobic Blood Culture - Preliminary Blood - Venous - Lab Draw NO GROWTH AFTER 1 DAY Anaerobic Blood Culture - Preliminary NO GROWTH AFTER 1 DAY Med Orders - Current: Current Medications Albuterol/Ipratropium (Duoneb 3.0-0.5 Mg/3 Ml) 3 ml NEB Q6HRRT PRN PRN Reason: Shortness of Breath Aspirin (Aspirin) 81 mg PO DAILY [facility] Last Admin: 04/30/19 08:06 Dose: 81 mg Atorvastatin Calcium (Lipitor) 40 mg PO BEDTIME [facility] Last Admin: 04/29/19 21:30 Dose: 40 mg Bisacodyl (Dulcolax) 10 mg PO DAILY PRN PRN Reason: Constipation Last Admin: 04/29/19 21:30 Dose: 10 mg Ceftriaxone Sodium/Dextrose 1 (gm/ Premix) 50 mls @ 100 mls/hr IV Q24H [facility] Last Admin: 04/29/19 21:45 Dose: 100 mls/hr Ibuprofen (Motrin) 600 mg PO Q6H PRN PRN Reason: Pain (mild 1-3) Insulin Aspart (Novolog) 0 unit SUBCUT TIDAC [facility]; Protocol Last Admin: 04/30/19 12:00 Dose: 2 units Losartan Potassium (Cozaar) 100 mg PO BRK [facility] Last Admin: 04/30/19 08:06 Dose: 100 mg Metoprolol Tartrate (Lopressor) 100 mg PO BID [facility] Last Admin: 04/30/19 08:05 Dose: 100 mg Ondansetron HCl (Zofran Odt) 4 mg PO Q4H PRN PRN Reason: nausea, able to take PO Ondansetron HCl (Zofran) 4 mg IVPUSH Q4H PRN PRN Reason: Nausea Tetrahydrozoline Hcl ([Visine] 1 Drop) 0 each EYERT ASDIRECTED PRN PRN Reason: Dry Eyes Polyethylene Glycol (Miralax) 17 gm PO TID PRN PRN Reason: Constipation Last Admin: 04/29/19 21:32 Dose: 17 gm Rivaroxaban (Xarelto) 15 mg PO Q12H [facility] Sodium Chloride (Saline Flush) 10 ml FLUSH ASDIRECTED PRN PRN Reason: Keep Vein Open Last Admin: 04/29/19 05:10 Dose: 10 ml Sodium Chloride (Saline Flush) 2.5 ml FLUSH ASDIRECTED PRN PRN Reason: Keep Vein Open Last Admin: 04/29/19 05:10 Dose: 2.5 ml Discontinued Medications Enoxaparin Sodium (Lovenox) 90 mg SUBCUT ONETIME ONE Stop: 04/29/19 05:14 Last Admin: 04/29/19 05:34 Dose: 90 mg Enoxaparin Sodium (Lovenox) 90 mg SUBCUT DAILY JACOB Enoxaparin Sodium (Lovenox) 90 mg SUBCUT Q12H [facility] Last Admin: 04/30/19 06:02 Dose: 90 mg Furosemide (Lasix) 40 mg IVPUSH NOW ONE Stop: 04/29/19 05:00 Last Admin: 04/29/19 05:08 Dose: 40 mg Furosemide (Lasix) 40 mg IVPUSH BID JACOB Last Admin: 04/30/19 08:05 Dose: 40 mg Iopamidol (Isovue Multipack-370 (76%)) 50 ml IVPUSH ONETIME STA Stop: 04/29/19 06:00 Last Admin: 04/29/19 06:01 Dose: 50 ml - Exam General: Alert, Oriented Lungs: Clear to Auscultation. No: Crackles, Wheezing Cardiovascular: Regular Rate, Irregular Rhythm GI/Abdominal Exam: Normal Bowel Sounds, Soft, Non-Tender Extremities: Non-Tender, Pedal Edema Skin: Warm, Dry - Problem List Review Problem List Initiated/Reviewed/Updated: Yes - My Orders Last 24 Hours: My Active Orders 04/29/19 21:00 Bisacodyl [Dulcolax] 10 mg PO DAILY PRN Metoprolol Tartrate [Lopressor] 100 mg PO BID Polyethylene Glycol 3350 [MiraLAX] 17 gm PO TID PRN atorvaSTATin [Lipitor] 40 mg PO BEDTIME cefTRIAXone [Rocephin in Dextrose,Iso-Osm 1 GM/50 ML] 1 gm Premix Bag 1 bag IV Q24H 04/30/19 08:00 Losartan [Cozaar] 100 mg PO BRK 05/01/19 05:11 CBC WITH AUTO DIFF [HEME] AM COMPREHENSIVE METABOLIC PN,CMP [CHEM] AM - Plan Plan:: A: 1. Acute CHF exacerbation with preserved EF 2. New onset Afib on Eliquis 3. Chronic right pulmonary embolism 4. Diabetes type 2 5. UTI P: Will start Eliquis 5 mg PO q12H tonight. Will stop IV lasix and start home dose PO lasix. Continue with ceftriaxone for UTI. Switch tomorrow to PO antibiotic. dispo: plan to dc tomorrow <Mt Jose - Last Filed: 05/01/19 21:41> - Patient Data Vitals - Most Recent: Last Vital Signs Temp 36.0 C 05/01/19 08:00 Pulse 91 05/01/19 09:00 Resp 18 05/01/19 08:00 BP 156/67 H 05/01/19 09:00 Pulse Ox 97 05/01/19 08:00 I&O - Last 24 Hours: Intake & Output 05/01/19 05/01/19 05/01/19 06:59 14:59 22:59 Intake Total 340 500 Output Total 450 600 Balance -110 -100 Lab Results Last 24 Hours: Laboratory Results - last 24 hr 05/01/19 05/01/19 05/01/19 Range/Units 05:30 05:30 05:30 WBC 4.28 (4.0-11.0) K/uL RBC 3.51 L (4.50-5.90) M/uL Hgb 11.2 L (13.0-17.0) g/dL Hct 34.4 L (38.0-50.0) % MCV 98.0 (80.0-98.0) fL MCH 31.9 (27.0-32.0) pg MCHC 32.6 (31.0-37.0) g/dL RDW Std Deviation 52.1 (28.0-62.0) fl RDW Coeff of Theresa 15 (11.0-15.0) % Plt Count 184 (150-400) K/uL MPV 9.20 (7.40-12.00) fL Neut % (Auto) 62.9 (48.0-80.0) % Lymph % (Auto) 20.8 (16.0-40.0) % [place] % (Auto) 11.7 (0.0-15.0) % Eos % (Auto) 4.4 (0.0-7.0) % Baso % (Auto) 0.2 (0.0-1.5) % Neut # (Auto) 2.7 (1.4-5.7) K/uL Lymph # (Auto) 0.9 (0.6-2.4) K/uL [place] # (Auto) 0.5 (0.0-0.8) K/uL Eos # (Auto) 0.2 (0.0-0.7) K/uL Baso # (Auto) 0.0 (0.0-0.1) K/uL Nucleated RBC % 0.0 /100WBC Nucleated RBCs # 0 K/uL Sodium 141 (136-148) mmol/L Potassium 4.6 (3.5-5.1) mmol/L Chloride 104 (98-107) mmol/L Carbon Dioxide 31.6 (21.0-32.0) mmol/L BUN 22 H (7.0-18.0) mg/dL Creatinine 1.1 (0.8-1.3) mg/dL Est Cr Clr Drug Dosing 50.09 mL/min Estimated GFR (MDRD) > 60.0 ml/min Glucose 170 H (74-106) mg/dL POC Glucose (60-110) mg/dL Calcium 8.3 L (8.5-10.1) mg/dL Total Bilirubin 0.6 (0.2-1.0) mg/dL AST 13 L (15-37) IU/L ALT 33 (14-63) IU/L Alkaline Phosphatase 123 H (46-116) U/L B-Natriuretic Peptide 1660 H (<100) PG/ML Total Protein 5.0 L (6.4-8.2) g/dL Albumin 2.7 L (3.4-5.0) g/dL Globulin 2.3 L (2.6-4.0) g/dL Albumin/Globulin Ratio 1.2 (0.9-1.6) 05/01/19 Range/Units 06:14 WBC (4.0-11.0) K/uL RBC (4.50-5.90) M/uL Hgb (13.0-17.0) g/dL Hct (38.0-50.0) % MCV (80.0-98.0) fL MCH (27.0-32.0) pg MCHC (31.0-37.0) g/dL RDW Std Deviation (28.0-62.0) fl RDW Coeff of Theresa (11.0-15.0) % Plt Count (150-400) K/uL MPV (7.40-12.00) fL Neut % (Auto) (48.0-80.0) % Lymph % (Auto) (16.0-40.0) % [place] % (Auto) (0.0-15.0) % Eos % (Auto) (0.0-7.0) % Baso % (Auto) (0.0-1.5) % Neut # (Auto) (1.4-5.7) K/uL Lymph # (Auto) (0.6-2.4) K/uL [place] # (Auto) (0.0-0.8) K/uL Eos # (Auto) (0.0-0.7) K/uL Baso # (Auto) (0.0-0.1) K/uL Nucleated RBC % /100WBC Nucleated RBCs # K/uL Sodium (136-148) mmol/L Potassium (3.5-5.1) mmol/L Chloride (98-107) mmol/L Carbon Dioxide (21.0-32.0) mmol/L BUN (7.0-18.0) mg/dL Creatinine (0.8-1.3) mg/dL Est Cr Clr Drug Dosing mL/min Estimated GFR (MDRD) ml/min Glucose (74-106) mg/dL POC Glucose 162 H (60-110) mg/dL Calcium (8.5-10.1) mg/dL Total Bilirubin (0.2-1.0) mg/dL AST (15-37) IU/L ALT (14-63) IU/L Alkaline Phosphatase (46-116) U/L B-Natriuretic Peptide (<100) PG/ML Total Protein (6.4-8.2) g/dL Albumin (3.4-5.0) g/dL Globulin (2.6-4.0) g/dL Albumin/Globulin Ratio (0.9-1.6) Florentino Results Last 24 Hours: Microbiology 04/29/19 06:12 Urine Culture - Final Urine, Clean Catch 04/29/19 05:23 Aerobic Blood Culture - Preliminary Blood - Venous NO GROWTH AFTER 2 DAYS Anaerobic Blood Culture - Preliminary NO GROWTH AFTER 2 DAYS 04/29/19 05:34 Aerobic Blood Culture - Preliminary Blood - Venous - Lab Draw NO GROWTH AFTER 2 DAYS Anaerobic Blood Culture - Preliminary NO GROWTH AFTER 2 DAYS Med Orders - Current: Current Medications Discontinued Medications Albuterol/Ipratropium (Duoneb 3.0-0.5 Mg/3 Ml) 3 ml NEB Q6HRRT PRN PRN Reason: Shortness of Breath Apixaban (Eliquis) 5 mg PO BID [facility] Last Admin: 05/01/19 08:59 Dose: 5 mg Aspirin (Aspirin) 81 mg PO DAILY [facility] Last Admin: 05/01/19 09:00 Dose: 81 mg Atorvastatin Calcium (Lipitor) 40 mg PO BEDTIME [facility] Last Admin: 04/30/19 21:27 Dose: 40 mg Bisacodyl (Dulcolax) 10 mg PO DAILY PRN PRN Reason: Constipation Last Admin: 04/29/19 21:30 Dose: 10 mg Enoxaparin Sodium (Lovenox) 90 mg SUBCUT ONETIME ONE Stop: 04/29/19 05:14 Last Admin: 04/29/19 05:34 Dose: 90 mg Enoxaparin Sodium (Lovenox) 90 mg SUBCUT DAILY [facility] Enoxaparin Sodium (Lovenox) 90 mg SUBCUT Q12H [facility] Last Admin: 04/30/19 06:02 Dose: 90 mg Furosemide (Lasix) 40 mg IVPUSH NOW ONE Stop: 04/29/19 05:00 Last Admin: 04/29/19 05:08 Dose: 40 mg Furosemide (Lasix) 40 mg IVPUSH BID [facility] Last Admin: 04/30/19 08:05 Dose: 40 mg Furosemide (Lasix) 20 mg PO DAILY [facility] Last Admin: 05/01/19 08:59 Dose: 20 mg Furosemide (Lasix) 40 mg IVPUSH NOW ONE Stop: 05/01/19 11:50 Last Admin: 05/01/19 12:02 Dose: 40 mg Ceftriaxone Sodium/Dextrose 1 (gm/ Premix) 50 mls @ 100 mls/hr IV Q24H [facility] Last Admin: 04/30/19 21:34 Dose: 100 mls/hr Pantoprazole Sodium 40 mg/ (Sodium Chloride) 10 mls @ 300 mls/hr IV NOW ONE Stop: 05/01/19 12:11 Last Admin: 05/01/19 12:45 Dose: 300 mls/hr Ibuprofen (Motrin) 600 mg PO Q6H PRN PRN Reason: Pain (mild 1-3) Insulin Aspart (Novolog) 0 unit SUBCUT TIDAC [facility]; Protocol Last Admin: 05/01/19 12:08 Dose: 2 units Iopamidol (Isovue Multipack-370 (76%)) 50 ml IVPUSH ONETIME STA Stop: 04/29/19 06:00 Last Admin: 04/29/19 06:01 Dose: 50 ml Losartan Potassium (Cozaar) 100 mg PO BRK [facility] Last Admin: 05/01/19 08:59 Dose: 100 mg Metoprolol Tartrate (Lopressor) 100 mg PO BID [facility] Last Admin: 05/01/19 09:00 Dose: 100 mg Ondansetron HCl (Zofran Odt) 4 mg PO Q4H PRN PRN Reason: nausea, able to take PO Ondansetron HCl (Zofran) 4 mg IVPUSH Q4H PRN PRN Reason: Nausea Ondansetron HCl (Zofran) 4 mg IVPUSH ONETIME ONE Stop: 05/01/19 12:05 Last Admin: 05/01/19 12:45 Dose: 4 mg Tetrahydrozoline Hcl ([Visine] 1 Drop) 0 each EYERT ASDIRECTED PRN PRN Reason: Dry Eyes Polyethylene Glycol (Miralax) 17 gm PO TID PRN PRN Reason: Constipation Last Admin: 04/29/19 21:32 Dose: 17 gm Rivaroxaban (Xarelto) 15 mg PO Q12H [facility] Sodium Chloride (Saline Flush) 10 ml FLUSH ASDIRECTED PRN PRN Reason: Keep Vein Open Last Admin: 04/29/19 05:10 Dose: 10 ml Sodium Chloride (Saline Flush) 2.5 ml FLUSH ASDIRECTED PRN PRN Reason: Keep Vein Open Last Admin: 04/29/19 05:10 Dose: 2.5 ml - Problem List & Annotations (1) Atrial fibrillation SNOMED Code(s): 48937668 Code(s): I48.91 - UNSPECIFIED ATRIAL FIBRILLATION Status: Acute (2) Chest pain, unspecified SNOMED Code(s): 68159660 Code(s): R07.9 - CHEST PAIN, UNSPECIFIED Status: Acute Qualifiers: Chest pain type: unspecified Qualified Code(s): R07.9 - Chest pain, unspecified (3) Congestive heart failure SNOMED Code(s): 43628696 Code(s): I50.9 - HEART FAILURE, UNSPECIFIED Status: Acute - Problem List Review Problem List Initiated/Reviewed/Updated: Yes - My Orders Last 24 Hours: My Active Orders 05/01/19 14:00 [employer] House Attendant Discontinue [Cardiac Monitoring Discontinue] [RC] Click to Edit - Plan Plan:: I have seen and evaluated the patient and agree with the residents note unless specified in my note
[2019-04-30] MEDS ORDERED: Rivaroxaban 15 MG Tab PO SCH (18:00)
[2019-04-30] MEDS: atorvaSTATin 40 MG Tab PO SCH (21:27)
[2019-04-30] MEDS: Apixaban 5 MG Tab PO SCH (21:28)
[2019-04-30] MEDS: cefTRIAXone 1 GM in Premix Bag 1 BAG IV SCH (21:34)
[2019-05-01 06:47] LABS: BLOOD UREA NITROGEN,BUN 22 mg/dL (7.0-18.0); CARBON DIOXIDE,CO2 31.6 mmol/L (21.0-32.0); CHLORIDE,CL 104 mmol/L (98-107); GLUCOSE RANDOM 170 mg/dL (74-106); POTASSIUM,K 4.6 mmol/L (3.5-5.1); SODIUM,NA 141 mmol/L (136-148)
[2019-05-01] MEDS: Insulin Aspart 100 Units/ML 3 ML Pen SUBCUT SCH ×2 (07:43→12:08)
[2019-05-01 08:08] VITALS: BP 156/67; PULSE 91
[2019-05-01] MEDS: Losartan 50 MG Tab PO SCH (08:59)
[2019-05-01] MEDS: Apixaban 5 MG Tab PO SCH (08:59)
[2019-05-01] MEDS: Metoprolol Tartrate 50 MG Tab PO SCH (09:00)
[2019-05-01] MEDS ORDERED: Furosemide 20 MG Tab PO SCH (09:00)
[2019-05-01] MEDS: Aspirin 81 MG Tab.Chew PO SCH (09:00)
--- NOTE | 2019-05-01 10:54 | PCM.DCSUM1 ---
<Eliazar Moran - Last Filed: 05/01/19 15:05> Discharge Summary - Hospital Course Free Text/Narrative:: 83 y/o male with history of heart failure who presented to the ER complaining of worsening shortness of breath and generalized weakness. He was admitted for acute CHF exacerbation. BNP of 1500. He was started on Lasix 40 mg IV BID with good urine output. CT chest showed a chronic PE on right lung. In addition, he was found to be in Afib/Aflutter. He was started on full dose lovenox Q12H and then transitioned to Eliquis 5 mg PO BID. He remained doing well during this hospitalization. He was found to have a UTI and started on ceftriaxone. Apparently the patient had been taking plavix and aspirin for previous TIA in 2014. His plavix was discontinued at discharge and started on Eliquis 5 mg PO BID, lasix 40 mg PO daily and bactrim for UTI. Afib remained rate controlled and he denied any chest pain. He was advised to follow-up with his PCP and cardiology. - Discharge Data Discharge Date: 05/01/19 Discharge Disposition: Home, Self-Care 01 Condition: Stable - Referral to Home Health Primary Care Physician: PCP None - Patient Summary/Data Consults: Consultations 04/29/19 09:17 Consult to Physician [CONS] Urgent - Patient Instructions Diet: Heart Healthy Diet Activity: As Tolerated Notify Provider of: Fever, Increased Pain, Swelling and Redness, Nausea and/or Vomiting - Discharge Plan Prescriptions/Med Rec: Apixaban [Eliquis] 5 mg PO BID 30 Days #60 tablet Aspirin [Adult Low Dose Aspirin EC] 81 mg PO DAILY #30 tablet. Furosemide [Lasix] 40 mg PO DAILY 30 Days #60 tablet Sulfamethoxazole/Trimethoprim [Bactrim Ds Tablet] 1 each PO BID #10 tablet Home Medications: Home Meds Losartan Potassium 100 mg PO BRK 02/23/14 [History] Metoprolol Tartrate 100 mg PO BID 02/23/14 [History] atorvaSTATin Calcium [Atorvastatin Calcium] 40 mg PO BEDTIME 02/23/14 [History] metFORMIN [Glucophage] 1,000 mg PO BID 02/23/14 [History] Cholecalciferol (Vitamin D3) [Vitamin D3] 2,000 units PO DAILY 01/30/17 [History ] SitaGLIPtin [Januvia] 100 mg PO DAILY 01/30/17 [History] Tetrahydrozoline HCl [Visine] 1 drop EYERT ASDIRECTED PRN 01/30/17 [History] Vit A/Vit C/Vit E/Zinc/Copper [Preservision] 1 tab PO BID 07/30/18 [History] Apixaban [Eliquis] 5 mg PO BID 30 Days #60 tablet 05/01/19 [Rx] Aspirin [Adult Low Dose Aspirin EC] 81 mg PO DAILY #30 tablet.dr 05/01/19 [Rx] Furosemide [Lasix] 40 mg PO DAILY 30 Days #60 tablet 05/01/19 [Rx] Sulfamethoxazole/Trimethoprim [Bactrim Ds Tablet] 1 each PO BID #10 tablet 05/01 [Rx] Patient Handouts: Aspirin, ASA chewable tablets, Furosemide tablets, Heart Failure, [id number], Sulfamethoxazole; Trimethoprim, SMX-TMP tablets, Apixaban oral tablets, Form - Daily Weight Record Referrals: Justice Newman MD [Ordering Only Provider] - 05/11/19 1:30 pm - Discharge Summary/Plan Comment DC Time >30 min.: No - Patient Data Vitals - Most Recent: Last Vital Signs Temp 36.0 C 05/01/19 08:00 Pulse 91 05/01/19 09:00 Resp 18 05/01/19 08:00 BP 156/67 H 05/01/19 09:00 Pulse Ox 97 05/01/19 08:00 Weight - Most Recent: 78.8 kg I&O - Last 24 hours: Intake & Output 04/30/19 05/01/19 05/01/19 22:59 06:59 14:59 Intake Total 730 340 Output Total 400 450 Balance 330 -110 Lab Results - Last 24 hrs: Laboratory Results - last 24 hr 04/30/19 04/30/19 05/01/19 Range/Units 11:46 17:03 05:30 WBC 4.28 (4.0-11.0) K/uL RBC 3.51 L (4.50-5.90) M/uL Hgb 11.2 L (13.0-17.0) g/dL Hct 34.4 L (38.0-50.0) % MCV 98.0 (80.0-98.0) fL MCH 31.9 (27.0-32.0) pg MCHC 32.6 (31.0-37.0) g/dL RDW Std Deviation 52.1 (28.0-62.0) fl RDW Coeff of Theresa 15 (11.0-15.0) % Plt Count 184 (150-400) K/uL MPV 9.20 (7.40-12.00) fL Neut % (Auto) 62.9 (48.0-80.0) % Lymph % (Auto) 20.8 (16.0-40.0) % Mckean % (Auto) 11.7 (0.0-15.0) % Eos % (Auto) 4.4 (0.0-7.0) % Baso % (Auto) 0.2 (0.0-1.5) % Neut # (Auto) 2.7 (1.4-5.7) K/uL Lymph # (Auto) 0.9 (0.6-2.4) K/uL Mckean # (Auto) 0.5 (0.0-0.8) K/uL Eos # (Auto) 0.2 (0.0-0.7) K/uL Baso # (Auto) 0.0 (0.0-0.1) K/uL Nucleated RBC % 0.0 /100WBC Nucleated RBCs # 0 K/uL Sodium (136-148) mmol/L Potassium (3.5-5.1) mmol/L Chloride (98-107) mmol/L Carbon Dioxide (21.0-32.0) mmol/L BUN (7.0-18.0) mg/dL Creatinine (0.8-1.3) mg/dL Est Cr Clr Drug Dosing mL/min Estimated GFR (MDRD) ml/min Glucose (74-106) mg/dL POC Glucose 168 H 133 H (60-110) mg/dL Calcium (8.5-10.1) mg/dL Total Bilirubin (0.2-1.0) mg/dL AST (15-37) IU/L ALT (14-63) IU/L Alkaline Phosphatase (46-116) U/L Total Protein (6.4-8.2) g/dL Albumin (3.4-5.0) g/dL Globulin (2.6-4.0) g/dL Albumin/Globulin Ratio (0.9-1.6) 05/01/19 05/01/19 Range/Units 05:30 06:14 WBC (4.0-11.0) K/uL RBC (4.50-5.90) M/uL Hgb (13.0-17.0) g/dL Hct (38.0-50.0) % MCV (80.0-98.0) fL MCH (27.0-32.0) pg MCHC (31.0-37.0) g/dL RDW Std Deviation (28.0-62.0) fl RDW Coeff of Theresa (11.0-15.0) % Plt Count (150-400) K/uL MPV (7.40-12.00) fL Neut % (Auto) (48.0-80.0) % Lymph % (Auto) (16.0-40.0) % Mckean % (Auto) (0.0-15.0) % Eos % (Auto) (0.0-7.0) % Baso % (Auto) (0.0-1.5) % Neut # (Auto) (1.4-5.7) K/uL Lymph # (Auto) (0.6-2.4) K/uL Mckean # (Auto) (0.0-0.8) K/uL Eos # (Auto) (0.0-0.7) K/uL Baso # (Auto) (0.0-0.1) K/uL Nucleated RBC % /100WBC Nucleated RBCs # K/uL Sodium 141 (136-148) mmol/L Potassium 4.6 (3.5-5.1) mmol/L Chloride 104 (98-107) mmol/L Carbon Dioxide 31.6 (21.0-32.0) mmol/L BUN 22 H (7.0-18.0) mg/dL Creatinine 1.1 (0.8-1.3) mg/dL Est Cr Clr Drug Dosing 50.09 mL/min Estimated GFR (MDRD) > 60.0 ml/min Glucose 170 H (74-106) mg/dL POC Glucose 162 H (60-110) mg/dL Calcium 8.3 L (8.5-10.1) mg/dL Total Bilirubin 0.6 (0.2-1.0) mg/dL AST 13 L (15-37) IU/L ALT 33 (14-63) IU/L Alkaline Phosphatase 123 H (46-116) U/L Total Protein 5.0 L (6.4-8.2) g/dL Albumin 2.7 L (3.4-5.0) g/dL Globulin 2.3 L (2.6-4.0) g/dL Albumin/Globulin Ratio 1.2 (0.9-1.6) ADRIANO Results - Last 24 hrs: Microbiology 04/29/19 06:12 Urine Culture - Final Urine, Clean Catch 04/29/19 05:23 Aerobic Blood Culture - Preliminary Blood - Venous NO GROWTH AFTER 2 DAYS Anaerobic Blood Culture - Preliminary NO GROWTH AFTER 2 DAYS 04/29/19 05:34 Aerobic Blood Culture - Preliminary Blood - Venous - Lab Draw NO GROWTH AFTER 2 DAYS Anaerobic Blood Culture - Preliminary NO GROWTH AFTER 2 DAYS Med Orders - Current: Current Medications Albuterol/Ipratropium (Duoneb 3.0-0.5 Mg/3 Ml) 3 ml NEB Q6HRRT PRN PRN Reason: Shortness of Breath Apixaban (Eliquis) 5 mg PO BID [facility] Last Admin: 05/01/19 08:59 Dose: 5 mg Aspirin (Aspirin) 81 mg PO DAILY [facility] Last Admin: 05/01/19 09:00 Dose: 81 mg Atorvastatin Calcium (Lipitor) 40 mg PO BEDTIME [facility] Last Admin: 04/30/19 21:27 Dose: 40 mg Bisacodyl (Dulcolax) 10 mg PO DAILY PRN PRN Reason: Constipation Last Admin: 04/29/19 21:30 Dose: 10 mg Furosemide (Lasix) 20 mg PO DAILY [facility] Last Admin: 05/01/19 08:59 Dose: 20 mg Ceftriaxone Sodium/Dextrose 1 (gm/ Premix) 50 mls @ 100 mls/hr IV Q24H [facility] Last Admin: 04/30/19 21:34 Dose: 100 mls/hr Ibuprofen (Motrin) 600 mg PO Q6H PRN PRN Reason: Pain (mild 1-3) Insulin Aspart (Novolog) 0 unit SUBCUT TIDAC [facility]; Protocol Last Admin: 05/01/19 07:43 Dose: 2 units Losartan Potassium (Cozaar) 100 mg PO BRK [facility] Last Admin: 05/01/19 08:59 Dose: 100 mg Metoprolol Tartrate (Lopressor) 100 mg PO BID [facility] Last Admin: 05/01/19 09:00 Dose: 100 mg Ondansetron HCl (Zofran Odt) 4 mg PO Q4H PRN PRN Reason: nausea, able to take PO Ondansetron HCl (Zofran) 4 mg IVPUSH Q4H PRN PRN Reason: Nausea Tetrahydrozoline Hcl ([Visine] 1 Drop) 0 each EYERT ASDIRECTED PRN PRN Reason: Dry Eyes Polyethylene Glycol (Miralax) 17 gm PO TID PRN PRN Reason: Constipation Last Admin: 04/29/19 21:32 Dose: 17 gm Sodium Chloride (Saline Flush) 10 ml FLUSH ASDIRECTED PRN PRN Reason: Keep Vein Open Last Admin: 04/29/19 05:10 Dose: 10 ml Sodium Chloride (Saline Flush) 2.5 ml FLUSH ASDIRECTED PRN PRN Reason: Keep Vein Open Last Admin: 04/29/19 05:10 Dose: 2.5 ml Discontinued Medications Enoxaparin Sodium (Lovenox) 90 mg SUBCUT ONETIME ONE Stop: 04/29/19 05:14 Last Admin: 04/29/19 05:34 Dose: 90 mg Enoxaparin Sodium (Lovenox) 90 mg SUBCUT DAILY [facility] Enoxaparin Sodium (Lovenox) 90 mg SUBCUT Q12H [facility] Last Admin: 04/30/19 06:02 Dose: 90 mg Furosemide (Lasix) 40 mg IVPUSH NOW ONE Stop: 04/29/19 05:00 Last Admin: 04/29/19 05:08 Dose: 40 mg Furosemide (Lasix) 40 mg IVPUSH BID [facility] Last Admin: 04/30/19 08:05 Dose: 40 mg Iopamidol (Isovue Multipack-370 (76%)) 50 ml IVPUSH ONETIME STA Stop: 04/29/19 06:00 Last Admin: 04/29/19 06:01 Dose: 50 ml Rivaroxaban (Xarelto) 15 mg PO Q12H [facility] <Mt Jose - Last Filed: 05/03/19 19:34> Discharge Summary - Hospital Course HPI Initial Comments: I have seen and evaluated the patient and agree with the residents note unless specified in my note - Referral to Home Health Primary Care Physician: PCP None - Discharge Diagnosis/Problem(s) (1) Atrial fibrillation SNOMED Code(s): 45003879 ICD Code: I48.91 - UNSPECIFIED ATRIAL FIBRILLATION Status: Acute (2) Chest pain, unspecified SNOMED Code(s): 30617719 ICD Code: R07.9 - CHEST PAIN, UNSPECIFIED Status: Acute Qualifiers: Chest pain type: unspecified Qualified Code(s): R07.9 - Chest pain, unspecified (3) Congestive heart failure SNOMED Code(s): 47893452 ICD Code: I50.9 - HEART FAILURE, UNSPECIFIED Status: Acute - Patient Summary/Data Consults: Consultations 04/29/19 09:17 Consult to Physician [CONS] Urgent - Patient Data Vitals - Most Recent: Last Vital Signs Temp 36.0 C 05/01/19 08:00 Pulse 91 05/01/19 09:00 Resp 18 05/01/19 08:00 BP 156/67 H 05/01/19 09:00 Pulse Ox 97 05/01/19 08:00 ADRIANO Results - Last 24 hrs: Microbiology 04/29/19 05:23 Aerobic Blood Culture - Preliminary Blood - Venous NO GROWTH AFTER 4 DAYS Anaerobic Blood Culture - Preliminary NO GROWTH AFTER 4 DAYS 04/29/19 05:34 Aerobic Blood Culture - Preliminary Blood - Venous - Lab Draw NO GROWTH AFTER 4 DAYS Anaerobic Blood Culture - Preliminary NO GROWTH AFTER 4 DAYS Med Orders - Current: Current Medications Discontinued Medications Albuterol/Ipratropium (Duoneb 3.0-0.5 Mg/3 Ml) 3 ml NEB Q6HRRT PRN PRN Reason: Shortness of Breath Apixaban (Eliquis) 5 mg PO BID [facility] Last Admin: 05/01/19 08:59 Dose: 5 mg Aspirin (Aspirin) 81 mg PO DAILY [facility] Last Admin: 05/01/19 09:00 Dose: 81 mg Atorvastatin Calcium (Lipitor) 40 mg PO BEDTIME [facility] Last Admin: 04/30/19 21:27 Dose: 40 mg Bisacodyl (Dulcolax) 10 mg PO DAILY PRN PRN Reason: Constipation Last Admin: 04/29/19 21:30 Dose: 10 mg Enoxaparin Sodium (Lovenox) 90 mg SUBCUT ONETIME ONE Stop: 04/29/19 05:14 Last Admin: 04/29/19 05:34 Dose: 90 mg Enoxaparin Sodium (Lovenox) 90 mg SUBCUT DAILY [facility] Enoxaparin Sodium (Lovenox) 90 mg SUBCUT Q12H [facility] Last Admin: 04/30/19 06:02 Dose: 90 mg Furosemide (Lasix) 40 mg IVPUSH NOW ONE Stop: 04/29/19 05:00 Last Admin: 04/29/19 05:08 Dose: 40 mg Furosemide (Lasix) 40 mg IVPUSH BID [facility] Last Admin: 04/30/19 08:05 Dose: 40 mg Furosemide (Lasix) 20 mg PO DAILY [facility] Last Admin: 05/01/19 08:59 Dose: 20 mg Furosemide (Lasix) 40 mg IVPUSH NOW ONE Stop: 05/01/19 11:50 Last Admin: 05/01/19 12:02 Dose: 40 mg Ceftriaxone Sodium/Dextrose 1 (gm/ Premix) 50 mls @ 100 mls/hr IV Q24H [facility] Last Admin: 04/30/19 21:34 Dose: 100 mls/hr Pantoprazole Sodium 40 mg/ (Sodium Chloride) 10 mls @ 300 mls/hr IV NOW ONE Stop: 05/01/19 12:11 Last Admin: 05/01/19 12:45 Dose: 300 mls/hr Ibuprofen (Motrin) 600 mg PO Q6H PRN PRN Reason: Pain (mild 1-3) Insulin Aspart (Novolog) 0 unit SUBCUT TIDAC [facility]; Protocol Last Admin: 05/01/19 12:08 Dose: 2 units Iopamidol (Isovue Multipack-370 (76%)) 50 ml IVPUSH ONETIME STA Stop: 04/29/19 06:00 Last Admin: 04/29/19 06:01 Dose: 50 ml Losartan Potassium (Cozaar) 100 mg PO BRK [facility] Last Admin: 05/01/19 08:59 Dose: 100 mg Metoprolol Tartrate (Lopressor) 100 mg PO BID [facility] Last Admin: 05/01/19 09:00 Dose: 100 mg Ondansetron HCl (Zofran Odt) 4 mg PO Q4H PRN PRN Reason: nausea, able to take PO Ondansetron HCl (Zofran) 4 mg IVPUSH Q4H PRN PRN Reason: Nausea Ondansetron HCl (Zofran) 4 mg IVPUSH ONETIME ONE Stop: 05/01/19 12:05 Last Admin: 05/01/19 12:45 Dose: 4 mg Tetrahydrozoline Hcl ([Visine] 1 Drop) 0 each EYERT ASDIRECTED PRN PRN Reason: Dry Eyes Polyethylene Glycol (Miralax) 17 gm PO TID PRN PRN Reason: Constipation Last Admin: 04/29/19 21:32 Dose: 17 gm Rivaroxaban (Xarelto) 15 mg PO Q12H JACOB Sodium Chloride (Saline Flush) 10 ml FLUSH ASDIRECTED PRN PRN Reason: Keep Vein Open Last Admin: 04/29/19 05:10 Dose: 10 ml Sodium Chloride (Saline Flush) 2.5 ml FLUSH ASDIRECTED PRN PRN Reason: Keep Vein Open Last Admin: 04/29/19 05:10 Dose: 2.5 ml
[2019-05-01] MEDS ORDERED: Furosemide 40 MG/4 ML VIAL IVPUSH ONE (11:49)
[2019-05-01] MEDS ORDERED: Ondansetron 4 MG/2 ML SDV IVPUSH ONE (12:04)
[2019-05-01] MEDS ORDERED: Pantoprazole 40 MG in Sodium Chloride 0.9% 10 ML IV ONE (12:10)
--- NOTE | 2019-05-03 13:56 | ECHO ---
The echocardiogram report can be seen in this patient's EMR (Electronic Medical Record) in the REPORTS section. The echocardiogram report has also been scanned into PACS and can be seen there as well. LISBETH
== END 2019-05-01 15:36 | disposition home or self-care (01) | DRG 292 ==
LOC: MW.ED 03:47 → MW.MS 05:46 → OBSVTOIN 12:35
PROVIDERS: ADMIT Student in an Organized Health Care Education/Training Program; ATTEND Student in an Organized Health Care Education/Training Program
DX: I11.0 Hypertensive heart disease with heart failure (principal); I50.9 Heart failure, unspecified; N39.0 Urinary tract infection, site not specified; H54.7 Unspecified visual loss; I48.92 Unspecified atrial flutter; I27.82 Chronic pulmonary embolism; I50.33 Acute on chronic diastolic (congestive) heart failure; H91.90 Unspecified hearing loss, unspecified ear; I48.91 Unspecified atrial fibrillation; E11.9 Type 2 diabetes mellitus without complications; Z88.8 Allergy status to other drugs, medicaments and biological substances; Z79.84 Long term (current) use of oral hypoglycemic drugs; Z79.02 Long term (current) use of antithrombotics/antiplatelets; Z79.899 Other long term (current) drug therapy; E78.00 Pure hypercholesterolemia, unspecified; Z87.891 Personal history of nicotine dependence; R60.0 Localized edema; R06.02 Shortness of breath; R06.00 Dyspnea, unspecified; R05 Cough; F32.9 Major depressive disorder, single episode, unspecified; D64.9 Anemia, unspecified; Z86.73 Personal history of transient ischemic attack (TIA), and cerebral infarction without residual deficits; Z88.0 Allergy status to penicillin; Z91.09 Other allergy status, other than to drugs and biological substances; Z91.018 Allergy to other foods; I25.2 Old myocardial infarction; Z98.49 Cataract extraction status, unspecified eye
CPT/HCPCS: 36415; 36600; 71045; 71275; 80053; 80061; 81001; 82803; 82962 ×2; 83036; 83605; 83880; 84443; 84484; 85025; 85610; 87040 ×2; 87086; 87804 ×2; 93005 ×2; 93306; 96372; 96374; 99285; A9270; J1650; J1940 ×2; Q9967; 99283; C9113; J0696; J1815-GY; J2405; J7050

== ENCOUNTER 2019-05-07 17:33 | Inpatient (IN) | payer MEDICARE ==
[2019-05-07] MEDS ORDERED: Sodium Chloride 0.9% 1,000 ML IV SCH ×2 (17:45→18:15)
--- NOTE | 2019-05-07 17:47 | EDM.PDOC ---
ED HPI GENERAL MEDICAL PROBLEM - General Chief Complaint: General Stated Complaint: AFIB Time Seen by Provider: 05/07/19 17:35 - History of Present Illness INITIAL COMMENTS - FREE TEXT/NARRATIVE: HISTORY AND PHYSICAL: History of present illness: Patient's a 83-year-old white male with history of heart failure was seen and admitted recently in mid-April for worsening shortness of breath and generalized weakness was ultimately diagnosed with an exacerbation of CHF was also found at that time to have A. fib flutter as well as chronic pulmonary embolism on the right lung at that time he was started on foam dose Lovenox transitioned Eliquis 5 mg twice a day he did well during the course and was discharged home he has scheduled follow-up next week he returns today with increasing shortness of breath and generalized weakness Review of systems: As per history of present illness and below otherwise all systems reviewed and negative. Past medical history: As per history of present illness and as reviewed below otherwise noncontributory. Surgical history: As per history of present illness and as reviewed below otherwise noncontributory. Social history: No reported history of drug or alcohol abuse. Family history: As per history of present illness and as reviewed below otherwise noncontributory. Physical exam: HEENT: Atraumatic, normocephalic, , negative for conjunctival pallor or scleral icterus, mucous membranes moist, throat clear, neck supple, nontender, trachea midline. Lungs: Coarse bilaterally scant basilar crackles slightly diminished, breath sounds equal bilaterally, chest nontender. Heart: S1S2, regular, negative for clicks, rubs, or JVD. Abdomen: Soft, nondistended, nontender. Negative for masses or hepatosplenomegaly. Negative for costovertebral tenderness. Pelvis: Stable nontender. Genitourinary: Deferred. Rectal: Deferred. Extremities: Atraumatic, negative for cords or calf pain. Neurovascular unremarkable. Neuro: Awake, alert, oriented. Cranial nerves II through XII unremarkable. Cerebellum unremarkable. Motor and sensory unremarkable throughout. Exam nonfocal. Diagnostics: CBC CMP troponin BNP PT/INR chest x-ray EKG UA blood culture Therapeutics: IV O2 monitor Impression: #1 generalized weakness #2 history of CHF #3 history of A. fib/flutter #4 history of chronic pulmonary embolism Definitive disposition and diagnosis as appropriate pending reevaluation and review of above. - Related Data Allergies Allergy/AdvReac Type Severity Reaction Status Date / Time celery [Celery] Allergy Hives Verified 05/07/19 17:48 Penicillins Allergy Rash Verified 05/07/19 17:48 Adhesives Allergy Hives Uncoded 05/07/19 17:48 Jeruselum Artichoke Allergy Hives Uncoded 05/07/19 17:48 Leachy Nuts Allergy Hives Uncoded 05/07/19 17:48 Parsley Allergy mild hives Uncoded 05/07/19 17:48 [place] Seeds Allergy Hives Uncoded 05/07/19 17:48 Home Meds: Home Meds Losartan Potassium 100 mg PO BRK 02/23/14 [History] Metoprolol Tartrate 100 mg PO BID 02/23/14 [History] atorvaSTATin Calcium [Atorvastatin Calcium] 40 mg PO BEDTIME 02/23/14 [History] metFORMIN [Glucophage] 1,000 mg PO BID 02/23/14 [History] Cholecalciferol (Vitamin D3) [Vitamin D3] 2,000 units PO DAILY 01/30/17 [History ] SitaGLIPtin [Januvia] 100 mg PO DAILY 01/30/17 [History] Tetrahydrozoline HCl [Visine] 1 drop EYERT ASDIRECTED PRN 01/30/17 [History] Vit A/Vit C/Vit E/Zinc/Copper [Preservision] 1 tab PO BID 07/30/18 [History] Apixaban [Eliquis] 5 mg PO BID 30 Days #60 tablet 05/01/19 [Rx] Aspirin [Adult Low Dose Aspirin EC] 81 mg PO DAILY #30 tablet. 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16, wears glasses , tracey hearing aids Cardiovascular History: Reports: High Cholesterol, Hypertension, [place] Respiratory History: Reports: None Gastrointestinal History: Reports: Other (See Below) Other Gastrointestinal History: hernia Genitourinary History: Reports: Prostate Disorder Musculoskeletal History: Reports: Other (See Below) Other Musculoskeletal History: fx fingers Neurological History: Reports: TIA, Other (See Below) Other Neuro History: unsteady gait, TIA March,-weaker on left side, also memomy and walk affected Psychiatric History: Reports: Depression Endocrine/Metabolic History: Reports: Diabetes, Type II Hematologic History: Reports: Anemia - Infectious Disease History Infectious Disease History: Reports: Chicken Pox, Mumps - Past Surgical History HEENT Surgical History: Reports: Cataract Surgery, Eye Surgery, Tonsillectomy Other HEENT Surgeries/Procedures: prostetic left eye, 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 ED EXAM, GENERAL - Physical Exam Exam: See Below (See dictation) Course - Vital Signs Last Recorded V/S: Last Vital Signs Temp 36.5 C 05/07/19 18:36 Pulse 94 05/07/19 18:34 Resp 25 H 05/07/19 18:34 BP 119/50 L 05/07/19 18:34 Pulse Ox 100 05/07/19 18:34 - Orders/Labs/Meds Orders: Active Orders 24 hr Category Date Time Status EKG Documentation Completion [RC] STAT Care 05/07/19 17:41 Active Pulse Oximetry [RC] ASDIRECTED Care 05/07/19 17:41 Active Chest 1V Frontal [CR] Stat Exams 05/07/19 17:41 Taken CULTURE BLOOD [BC] Stat Lab 05/07/19 18:19 Received CULTURE BLOOD [BC] Stat Lab 05/07/19 18:30 Results UA RFX ADRIANO AND CULT IF INDIC [URIN] Stat Lab 05/07/19 17:48 Ordered Sodium Chloride 0.9% [Normal Saline] 1,000 ml Med 05/07/19 18:09 Active IV .Bolus Blood Culture x2 Reflex Set [OM.PC] Stat Oth 05/07/19 17:41 Ordered Medication Orders Sodium Chloride (Normal Saline) 1,000 mls @ 125 mls/hr IV .Bolus ONE Stop: 05/08/19 02:08 Last Admin: 05/07/19 18:25 Dose: 125 mls/hr Labs: Laboratory Tests 05/07/19 05/07/19 05/07/19 Range/Units 17:40 17:40 17:40 WBC 6.46 (4.0-11.0) K/uL RBC 2.82 L (4.50-5.90) M/uL Hgb 9.2 L (13.0-17.0) g/dL Hct 28.4 L (38.0-50.0) % MCV 100.7 H (80.0-98.0) fL MCH 32.6 H (27.0-32.0) pg MCHC 32.4 (31.0-37.0) g/dL RDW Std Deviation 56.2 (28.0-62.0) fl RDW Coeff of Theresa 15 (11.0-15.0) % Plt Count 219 (150-400) K/uL MPV 9.50 (7.40-12.00) fL Neut % (Auto) 69.2 (48.0-80.0) % Lymph % (Auto) 20.7 (16.0-40.0) % [place] % (Auto) 9.6 (0.0-15.0) % Eos % (Auto) 0.3 (0.0-7.0) % Baso % (Auto) 0.2 (0.0-1.5) % Neut # (Auto) 4.5 (1.4-5.7) K/uL Lymph # (Auto) 1.3 (0.6-2.4) K/uL [place] # (Auto) 0.6 (0.0-0.8) K/uL Eos # (Auto) 0.0 (0.0-0.7) K/uL Baso # (Auto) 0.0 (0.0-0.1) K/uL Nucleated RBC % 0.0 /100WBC Nucleated RBCs # 0 K/uL INR 1.16 Sodium 138 (136-148) mmol/L Potassium 5.3 H (3.5-5.1) mmol/L Chloride 104 (98-107) mmol/L Carbon Dioxide 22.5 (21.0-32.0) mmol/L BUN 38 H (7.0-18.0) mg/dL Creatinine 1.5 H (0.8-1.3) mg/dL Est Cr Clr Drug Dosing 36.73 mL/min Estimated GFR (MDRD) 44.8 ml/min Glucose 172 H (74-106) mg/dL Calcium 9.0 (8.5-10.1) mg/dL Total Bilirubin 0.4 (0.2-1.0) mg/dL AST 20 (15-37) IU/L ALT 28 (14-63) IU/L Alkaline Phosphatase 97 (46-116) U/L Troponin I < 0.050 (0.000-0.056) ng/mL B-Natriuretic Peptide (<100) PG/ML Total Protein 6.2 L (6.4-8.2) g/dL Albumin 3.2 L (3.4-5.0) g/dL Globulin 3.0 (2.6-4.0) g/dL Albumin/Globulin Ratio 1.1 (0.9-1.6) 05/07/19 Range/Units 17:40 WBC (4.0-11.0) K/uL RBC (4.50-5.90) M/uL Hgb (13.0-17.0) g/dL Hct (38.0-50.0) % MCV (80.0-98.0) fL MCH (27.0-32.0) pg MCHC (31.0-37.0) g/dL RDW Std Deviation (28.0-62.0) fl RDW Coeff of Theresa (11.0-15.0) % Plt Count (150-400) K/uL MPV (7.40-12.00) fL Neut % (Auto) (48.0-80.0) % Lymph % (Auto) (16.0-40.0) % [place] % (Auto) (0.0-15.0) % Eos % (Auto) (0.0-7.0) % Baso % (Auto) (0.0-1.5) % Neut # (Auto) (1.4-5.7) K/uL Lymph # (Auto) (0.6-2.4) K/uL [place] # (Auto) (0.0-0.8) K/uL Eos # (Auto) (0.0-0.7) K/uL Baso # (Auto) (0.0-0.1) K/uL Nucleated RBC % /100WBC Nucleated RBCs # K/uL INR Sodium (136-148) mmol/L Potassium (3.5-5.1) mmol/L Chloride (98-107) mmol/L Carbon Dioxide (21.0-32.0) mmol/L BUN (7.0-18.0) mg/dL Creatinine (0.8-1.3) mg/dL Est Cr Clr Drug Dosing mL/min Estimated GFR (MDRD) ml/min Glucose (74-106) mg/dL Calcium (8.5-10.1) mg/dL Total Bilirubin (0.2-1.0) mg/dL AST (15-37) IU/L ALT (14-63) IU/L Alkaline Phosphatase (46-116) U/L Troponin I (0.000-0.056) ng/mL B-Natriuretic Peptide 1758 H (<100) PG/ML Total Protein (6.4-8.2) g/dL Albumin (3.4-5.0) g/dL Globulin (2.6-4.0) g/dL Albumin/Globulin Ratio (0.9-1.6) Meds: Medications Generic Name Dose Route Start Last Admin Trade Name Freq PRN Reason Stop Dose Admin Sodium Chloride 1,000 mls @ 125 mls/hr 05/07/19 18:09 05/07/19 18:25 Normal Saline IV 05/08/19 02:08 125 mls/hr .Bolus ONE Administration Discontinued Medications Generic Name Dose Route Start Last Admin Trade Name Freq PRN Reason Stop Dose Admin Sodium Chloride 1,000 mls @ 125 mls/hr 05/07/19 17:45 Normal Saline IV STAT JACOB Sodium Chloride 1,000 mls @ 125 mls/hr 05/07/19 18:15 Normal Saline IV ASDIRECTED JACOB Departure - Departure Time of Disposition: 18:57 Disposition: Refer to Observation Condition: Good Clinical Impression: Generalized weakness, Congestive heart failure - Discharge Information Referrals: PCP,Unobtain [Primary Care Provider] - Forms: ED Department Discharge - My Orders Last 24 Hours: My Active Orders 05/07/19 17:41 EKG Documentation Completion [RC] STAT Pulse Oximetry [RC] ASDIRECTED Chest 1V Frontal [CR] Stat Blood Culture x2 Reflex Set [OM.PC] Stat 05/07/19 17:48 UA RFX ADRIANO AND CULT IF INDIC [URIN] Stat 05/07/19 18:09 Sodium Chloride 0.9% [Normal Saline] 1,000 ml IV .Bolus 05/07/19 18:19 CULTURE BLOOD [BC] Stat 05/07/19 18:30 CULTURE BLOOD [BC] Stat - Assessment/Plan Last 24 Hours: My Active Orders 05/07/19 17:41 EKG Documentation Completion [RC] STAT Pulse Oximetry [RC] ASDIRECTED Chest 1V Frontal [CR] Stat Blood Culture x2 Reflex Set [OM.PC] Stat 05/07/19 17:48 UA RFX ADRIANO AND CULT IF INDIC [URIN] Stat 05/07/19 18:09 Sodium Chloride 0.9% [Normal Saline] 1,000 ml IV .Bolus 05/07/19 18:19 CULTURE BLOOD [BC] Stat 05/07/19 18:30 CULTURE BLOOD [BC] Stat
[2019-05-07] MEDS ORDERED: Sodium Chloride 0.9% 1,000 ML IV ONE (18:09)
[2019-05-07 18:42] LABS: BLOOD UREA NITROGEN,BUN 38 mg/dL (7.0-18.0); CARBON DIOXIDE,CO2 22.5 mmol/L (21.0-32.0); CHLORIDE,CL 104 mmol/L (98-107); GLUCOSE RANDOM 172 mg/dL (74-106); POTASSIUM,K 5.3 mmol/L (3.5-5.1); SODIUM,NA 138 mmol/L (136-148)
[2019-05-07] MEDS ORDERED: Furosemide 20 MG/2 ML VIAL IVPUSH ONE (19:01)
[2019-05-07] MEDS ORDERED: Furosemide 40 MG/4 ML VIAL ONE (19:03)
--- NOTE | 2019-05-07 19:05 | CR ---
INDICATION: Atrial fibrillation TECHNIQUE: Chest 1 view. COMPARISON: 04/29/2019 FINDINGS: Cardiovascular and mediastinum: Stable heart size. Mediastinum is within normal limits. Lungs and pleural space: Stable left lower lobe opacity and probable pleural effusion. No pneumothorax. Bones and soft tissues: No significant findings. IMPRESSION: Stable left lower lobe opacity and probable pleural effusion. Dictated by Obdulio Fong MD @ 05/07/2019 7:04:02 PM Dictated by: Obdulio Fong MD @ 05/07/2019 19:04:05 (Electronically Signed)
[2019-05-07] MEDS ORDERED: TETRAHYDROZOLINE HCL EYERT PRN (21:28)
--- NOTE | 2019-05-07 21:36 | PCM.HP.2 ---
H&P History of Present Illness - General Date of Service: 05/07/19 Admit Problem/Dx: Admission Diagnosis/Problem Admission Diagnosis/Problem Weakness - History of Present Illness Initial Comments - Free Text/Narative: 83 yo male with pmh of CHF who was admitted last week with CHF and new onset a.fib. After discharge patient reports worsening fatigue, shortness of breath, orthopnea and 2 lb weight gain. - Related Data Allergies/Adverse Reactions: Allergies Allergy/AdvReac Type Severity Reaction Status Date / Time celery [Celery] Allergy Hives Verified 05/07/19 20:51 Penicillins Allergy Rash Verified 05/07/19 20:51 Adhesives Allergy Hives Uncoded 05/07/19 20:51 Jeruselum Artichoke Allergy Hives Uncoded 05/07/19 20:51 Leachy Nuts Allergy Hives Uncoded 05/07/19 20:51 Parsley Allergy mild hives Uncoded 05/07/19 20:51 [place] Seeds Allergy Hives Uncoded 05/07/19 20:51 Home Medications: Home Meds Losartan Potassium 100 mg PO DAILY 02/23/14 [History] Metoprolol Tartrate 100 mg PO BID 02/23/14 [History] atorvaSTATin Calcium [Atorvastatin Calcium] 40 mg PO BEDTIME 02/23/14 [History] metFORMIN [Glucophage] 1,000 mg PO BID 02/23/14 [History] Cholecalciferol (Vitamin D3) [Vitamin D3] 2,000 units PO DAILY 01/30/17 [History ] SitaGLIPtin [Januvia] 100 mg PO DAILY 01/30/17 [History] Tetrahydrozoline HCl [Visine] 1 drop EYERT ASDIRECTED PRN 01/30/17 [History] Vit A/Vit C/Vit E/Zinc/Copper [Preservision] 1 tab PO BID 07/30/18 [History] Apixaban [Eliquis] 5 mg PO BID 30 Days #60 tablet 05/01/19 [Rx] Aspirin [Adult Low Dose Aspirin EC] 81 mg PO DAILY #30 tablet. 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16, wears glasses , tracey hearing aids Cardiovascular History: Reports: Afib, High Cholesterol, Hypertension, [place] Respiratory History: Reports: None Gastrointestinal History: Reports: Other (See Below) Other Gastrointestinal History: hernia Genitourinary History: Reports: Prostate Disorder Musculoskeletal History: Reports: Other (See Below) Other Musculoskeletal History: fx fingers Neurological History: Reports: TIA, Other (See Below) Other Neuro History: unsteady gait, TIA March,-weaker on left side, also memomy and walk affected Psychiatric History: Reports: Depression Endocrine/Metabolic History: Reports: Diabetes, Type II Hematologic History: Reports: Anemia - Infectious Disease History Infectious Disease History: Reports: Chicken Pox, Mumps - Past Surgical History HEENT Surgical History: Reports: Cataract Surgery, Eye Surgery, Tonsillectomy Other HEENT Surgeries/Procedures: prostetic left eye, 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, GI Surgical History: Reports: Hernia, Inguinal Other GI Surgeries/Procedures: inguinal hernia repair x2 Male Surgical History: Reports: TURP-Transurethral Resection of Prostate Social & Family History - Family History Family Medical History: Noncontributory Cardiac: Reports: Hypertension, [place] - Tobacco Use Smoking Status *Q: Former Smoker Used Tobacco, but Quit: Yes Month/Year Tobacco Last Used: 25 - Caffeine Use Caffeine Use: Reports: Coffee, Soda - Recreational Drug Use Recreational Drug Use: No H&P Review of Systems - Review of Systems: Review Of Systems: See Below Exam - Exam Exam: See Below - Vital Signs Vital Signs: Last Vital Signs Temp 36.4 C 05/07/19 20:00 Pulse 91 05/07/19 20:00 Resp 23 H 05/07/19 20:00 BP 134/54 L 05/07/19 20:00 Pulse Ox 98 05/07/19 20:00 Weight: 80.8 kg - Exam General: Alert HEENT: Mucosa Moist & [place] Number Two Lungs: Clear to Auscultation, Normal Respiratory Effort Cardiovascular: Regular Rate, Regular Rhythm GI/Abdominal Exam: Soft, Non-Tender Extremities: Pedal Edema (+2) Skin: Warm, Dry, Intact Neurological: No: Focal Deficit - Patient Data Lab Results Last 24 hrs: Laboratory Results - last 24 hr 05/07/19 05/07/19 05/07/19 Range/Units 17:40 17:40 17:40 WBC 6.46 (4.0-11.0) K/uL RBC 2.82 L (4.50-5.90) M/uL Hgb 9.2 L (13.0-17.0) g/dL Hct 28.4 L (38.0-50.0) % MCV 100.7 H (80.0-98.0) fL MCH 32.6 H (27.0-32.0) pg MCHC 32.4 (31.0-37.0) g/dL RDW Std Deviation 56.2 (28.0-62.0) fl RDW Coeff of Theresa 15 (11.0-15.0) % Plt Count 219 (150-400) K/uL MPV 9.50 (7.40-12.00) fL Neut % (Auto) 69.2 (48.0-80.0) % Lymph % (Auto) 20.7 (16.0-40.0) % [place] % (Auto) 9.6 (0.0-15.0) % Eos % (Auto) 0.3 (0.0-7.0) % Baso % (Auto) 0.2 (0.0-1.5) % Neut # (Auto) 4.5 (1.4-5.7) K/uL Lymph # (Auto) 1.3 (0.6-2.4) K/uL [place] # (Auto) 0.6 (0.0-0.8) K/uL Eos # (Auto) 0.0 (0.0-0.7) K/uL Baso # (Auto) 0.0 (0.0-0.1) K/uL Nucleated RBC % 0.0 /100WBC Nucleated RBCs # 0 K/uL INR 1.16 Sodium 138 (136-148) mmol/L Potassium 5.3 H (3.5-5.1) mmol/L Chloride 104 (98-107) mmol/L Carbon Dioxide 22.5 (21.0-32.0) mmol/L BUN 38 H (7.0-18.0) mg/dL Creatinine 1.5 H (0.8-1.3) mg/dL Est Cr Clr Drug Dosing 36.73 mL/min Estimated GFR (MDRD) 44.8 ml/min Glucose 172 H (74-106) mg/dL Calcium 9.0 (8.5-10.1) mg/dL Total Bilirubin 0.4 (0.2-1.0) mg/dL AST 20 (15-37) IU/L ALT 28 (14-63) IU/L Alkaline Phosphatase 97 (46-116) U/L Troponin I < 0.050 (0.000-0.056) ng/mL B-Natriuretic Peptide (<100) PG/ML Total Protein 6.2 L (6.4-8.2) g/dL Albumin 3.2 L (3.4-5.0) g/dL Globulin 3.0 (2.6-4.0) g/dL Albumin/Globulin Ratio 1.1 (0.9-1.6) 05/07/19 Range/Units 17:40 WBC (4.0-11.0) K/uL RBC (4.50-5.90) M/uL Hgb (13.0-17.0) g/dL Hct (38.0-50.0) % MCV (80.0-98.0) fL MCH (27.0-32.0) pg MCHC (31.0-37.0) g/dL RDW Std Deviation (28.0-62.0) fl RDW Coeff of Theresa (11.0-15.0) % Plt Count (150-400) K/uL MPV (7.40-12.00) fL Neut % (Auto) (48.0-80.0) % Lymph % (Auto) (16.0-40.0) % [place] % (Auto) (0.0-15.0) % Eos % (Auto) (0.0-7.0) % Baso % (Auto) (0.0-1.5) % Neut # (Auto) (1.4-5.7) K/uL Lymph # (Auto) (0.6-2.4) K/uL [place] # (Auto) (0.0-0.8) K/uL Eos # (Auto) (0.0-0.7) K/uL Baso # (Auto) (0.0-0.1) K/uL Nucleated RBC % /100WBC Nucleated RBCs # K/uL INR Sodium (136-148) mmol/L Potassium (3.5-5.1) mmol/L Chloride (98-107) mmol/L Carbon Dioxide (21.0-32.0) mmol/L BUN (7.0-18.0) mg/dL Creatinine (0.8-1.3) mg/dL Est Cr Clr Drug Dosing mL/min Estimated GFR (MDRD) ml/min Glucose (74-106) mg/dL Calcium (8.5-10.1) mg/dL Total Bilirubin (0.2-1.0) mg/dL AST (15-37) IU/L ALT (14-63) IU/L Alkaline Phosphatase (46-116) U/L Troponin I (0.000-0.056) ng/mL B-Natriuretic Peptide 1758 H (<100) PG/ML Total Protein (6.4-8.2) g/dL Albumin (3.4-5.0) g/dL Globulin (2.6-4.0) g/dL Albumin/Globulin Ratio (0.9-1.6) Result Diagrams: 05/08/19 05:55 05/08/19 05:55 [place] Results Last 24 hrs: Microbiology 05/07/19 18:30 Anaerobic Blood Culture - Final Blood - Venous - Lab Draw Problem List Initiated/Reviewed/Updated: Yes Orders Last 24hrs: Active Orders 24 hr Category Date Time Status Patient Status [ADT] Stat ADT 05/07/19 19:06 Active Antiembolic Devices [RC] PER UNIT ROUTINE Care 05/07/19 21:32 Ordered EKG Documentation Completion [RC] STAT Care 05/07/19 17:41 Active Oxygen Therapy [RC] PRN Care 05/07/19 21:29 Ordered Pulse Oximetry [RC] ASDIRECTED Care 05/07/19 17:41 Active VTE/DVT Education [RC] PER UNIT ROUTINE Care 05/07/19 21:29 Ordered Vital Signs [RC] Q4H Care 05/07/19 21:29 Ordered 2 Gram Sodium Diet [DIET] Diet 05/07/19 Breakfast Ordered BASIC METABOLIC PANEL,BMP [CHEM] AM Lab 05/08/19 05:11 Ordered CBC WITH AUTO DIFF [HEME] AM Lab 05/08/19 05:11 Ordered CULTURE BLOOD [BC] Stat Lab 05/07/19 18:19 Received CULTURE BLOOD [BC] Stat Lab 05/07/19 18:30 Results UA RFX [place] AND CULT IF INDIC [URIN] Stat Lab 05/07/19 17:48 Ordered Apixaban [Eliquis] Med 05/08/19 09:00 Ordered 5 mg PO BID Furosemide [Lasix] Med 05/08/19 09:00 Ordered 40 mg IVPUSH BID Metoprolol Tartrate Med 05/08/19 09:00 Ordered 100 mg PO BID Tetrahydrozoline HCl [Visine] Med 05/07/19 21:28 Ordered 1 drop EYERT ASDIRECTED PRN Vit A/Vit C/Vit E/Zinc/Copper [Preservision] Med 05/08/19 09:00 Ordered 1 tab PO BID Blood Culture x2 Reflex Set [OM.PC] Stat Oth 05/07/19 17:41 Ordered Sequential Compression Device [OM.PC] Per Unit Routine Oth 05/07/19 21:32 Ordered Resuscitation Status Routine Resus Stat 05/07/19 21:29 Ordered Medication Orders Apixaban (Eliquis) 5 mg PO BID JACOB Non-Formulary Medication (Metoprolol Tartrate) 100 mg PO BID JACOB Non-Formulary Medication (Tetrahydrozoline Hcl [Visine]) 1 drop EYERT ASDIRECTED PRN PRN Reason: Dry Eyes Non-Formulary Medication (Vit A/Vit C/Vit E/Zinc/Copper [Preservision]) 1 tab PO BID JACOB Assessment/Plan Comment:: 83 yo male admitted with CHF exacerbation and acute kidney injury. We will diurese with IV lasix, fluid restrict and monitor creatinine.
[2019-05-08 06:31] LABS: CARBON DIOXIDE,CO2 26.9 mmol/L (21.0-32.0); POTASSIUM,K 5.4 mmol/L (3.5-5.1)
[2019-05-08] MEDS: Metoprolol Tartrate 50 MG Tab PO SCH ×2 (08:07→20:32)
[2019-05-08] MEDS: Beta-Carotene (Vitamin A) w/Vitamin C & E plus Minerals Tab PO SCH ×2 (08:10→20:33)
[2019-05-08] MEDS: Furosemide 40 MG/4 ML VIAL IVPUSH SCH ×2 (08:11→20:34)
[2019-05-08] MEDS ORDERED: Apixaban 5 MG Tab PO SCH (09:00)
--- NOTE | 2019-05-08 10:23 | PCM.PN ---
- General Info Date of Service: 05/08/19 - Review of Systems Systems Review Comment:: reports dark stools - Patient Data Vitals - Most Recent: Last Vital Signs Temp 36.4 C 05/08/19 07:44 Pulse 106 H 05/08/19 08:07 Resp 15 05/08/19 07:44 BP 124/59 L 05/08/19 08:07 Pulse Ox 98 05/08/19 07:44 Weight - Most Recent: 78.5 kg I&O - Last 24 Hours: Intake & Output 05/07/19 05/08/19 05/08/19 22:59 06:59 14:59 Intake Total 464 150 Output Total 550 Balance 464 -400 Lab Results Last 24 Hours: Laboratory Results - last 24 hr 05/07/19 05/07/19 05/07/19 Range/Units 17:40 17:40 17:40 WBC 6.46 (4.0-11.0) K/uL RBC 2.82 L (4.50-5.90) M/uL Hgb 9.2 L (13.0-17.0) g/dL Hct 28.4 L (38.0-50.0) % MCV 100.7 H (80.0-98.0) fL MCH 32.6 H (27.0-32.0) pg MCHC 32.4 (31.0-37.0) g/dL RDW Std Deviation 56.2 (28.0-62.0) fl RDW Coeff of Theresa 15 (11.0-15.0) % Plt Count 219 (150-400) K/uL MPV 9.50 (7.40-12.00) fL Neut % (Auto) 69.2 (48.0-80.0) % Lymph % (Auto) 20.7 (16.0-40.0) % [place] % (Auto) 9.6 (0.0-15.0) % Eos % (Auto) 0.3 (0.0-7.0) % Baso % (Auto) 0.2 (0.0-1.5) % Neut # (Auto) 4.5 (1.4-5.7) K/uL Lymph # (Auto) 1.3 (0.6-2.4) K/uL [place] # (Auto) 0.6 (0.0-0.8) K/uL Eos # (Auto) 0.0 (0.0-0.7) K/uL Baso # (Auto) 0.0 (0.0-0.1) K/uL Nucleated RBC % 0.0 /100WBC Nucleated RBCs # 0 K/uL INR 1.16 Sodium 138 (136-148) mmol/L Potassium 5.3 H (3.5-5.1) mmol/L Chloride 104 (98-107) mmol/L Carbon Dioxide 22.5 (21.0-32.0) mmol/L BUN 38 H (7.0-18.0) mg/dL Creatinine 1.5 H (0.8-1.3) mg/dL Est Cr Clr Drug Dosing 36.73 mL/min Estimated GFR (MDRD) 44.8 ml/min Glucose 172 H (74-106) mg/dL POC Glucose (60-110) mg/dL Calcium 9.0 (8.5-10.1) mg/dL Total Bilirubin 0.4 (0.2-1.0) mg/dL AST 20 (15-37) IU/L ALT 28 (14-63) IU/L Alkaline Phosphatase 97 (46-116) U/L Troponin I < 0.050 (0.000-0.056) ng/mL B-Natriuretic Peptide (<100) PG/ML Total Protein 6.2 L (6.4-8.2) g/dL Albumin 3.2 L (3.4-5.0) g/dL Globulin 3.0 (2.6-4.0) g/dL Albumin/Globulin Ratio 1.1 (0.9-1.6) Urine Color Urine Appearance Urine pH (5.0-8.0) Ur Specific [place] (1.001-1.035) Urine Protein (NEGATIVE) mg/dL Urine Glucose (UA) (NEGATIVE) mg/dL Urine Ketones (NEGATIVE) mg/dL Urine Occult Blood (NEGATIVE) Urine Nitrite (NEGATIVE) Urine Bilirubin (NEGATIVE) Urine Urobilinogen (<2.0) EU/dL Ur Leukocyte Esterase (NEGATIVE) Urine RBC (0-2/HPF) Urine WBC (0-5/HPF) Ur Epithelial Cells (NONE-FEW) Urine Bacteria (NEGATIVE) 05/07/19 05/07/19 05/08/19 Range/Units 17:40 21:30 05:55 WBC 4.31 (4.0-11.0) K/uL RBC 2.47 L (4.50-5.90) M/uL Hgb 7.8 L (13.0-17.0) g/dL Hct 24.6 L (38.0-50.0) % MCV 99.6 H (80.0-98.0) fL MCH 31.6 (27.0-32.0) pg MCHC 31.7 (31.0-37.0) g/dL RDW Std Deviation 55.4 (28.0-62.0) fl RDW Coeff of Theresa 15 (11.0-15.0) % Plt Count 158 (150-400) K/uL MPV 9.00 (7.40-12.00) fL Neut % (Auto) 62.4 (48.0-80.0) % Lymph % (Auto) 26.5 (16.0-40.0) % Moca % (Auto) 9.0 (0.0-15.0) % Eos % (Auto) 1.9 (0.0-7.0) % Baso % (Auto) 0.2 (0.0-1.5) % Neut # (Auto) 2.7 (1.4-5.7) K/uL Lymph # (Auto) 1.1 (0.6-2.4) K/uL [place]oca # (Auto) 0.4 (0.0-0.8) K/uL Eos # (Auto) 0.1 (0.0-0.7) K/uL Baso # (Auto) 0.0 (0.0-0.1) K/uL Nucleated RBC % 0.0 /100WBC Nucleated RBCs # 0 K/uL INR Sodium (136-148) mmol/L Potassium (3.5-5.1) mmol/L Chloride (98-107) mmol/L Carbon Dioxide (21.0-32.0) mmol/L BUN (7.0-18.0) mg/dL Creatinine (0.8-1.3) mg/dL Est Cr Clr Drug Dosing mL/min Estimated GFR (MDRD) ml/min Glucose (74-106) mg/dL POC Glucose (60-110) mg/dL Calcium (8.5-10.1) mg/dL Total Bilirubin (0.2-1.0) mg/dL AST (15-37) IU/L ALT (14-63) IU/L Alkaline Phosphatase (46-116) U/L Troponin I (0.000-0.056) ng/mL B-Natriuretic Peptide 1758 H (<100) PG/ML Total Protein (6.4-8.2) g/dL Albumin (3.4-5.0) g/dL Globulin (2.6-4.0) g/dL Albumin/Globulin Ratio (0.9-1.6) Urine Color YELLOW Urine Appearance CLEAR Urine pH 6.0 (5.0-8.0) Ur Specific [place] 1.015 (1.001-1.035) Urine Protein NEGATIVE (NEGATIVE) mg/dL Urine Glucose (UA) NEGATIVE (NEGATIVE) mg/dL Urine Ketones NEGATIVE (NEGATIVE) mg/dL Urine Occult Blood NEGATIVE (NEGATIVE) Urine Nitrite NEGATIVE (NEGATIVE) Urine Bilirubin NEGATIVE (NEGATIVE) Urine Urobilinogen 0.2 (<2.0) EU/dL Ur Leukocyte Esterase SMALL H (NEGATIVE) Urine RBC 0-2 (0-2/HPF) Urine WBC 2-5 (0-5/HPF) Ur Epithelial Cells RARE (NONE-FEW) Urine Bacteria RARE (NEGATIVE) 05/08/19 05/08/19 Range/Units 05:55 06:34 WBC (4.0-11.0) K/uL RBC (4.50-5.90) M/uL Hgb (13.0-17.0) g/dL Hct (38.0-50.0) % MCV (80.0-98.0) fL MCH (27.0-32.0) pg MCHC (31.0-37.0) g/dL RDW Std Deviation (28.0-62.0) fl RDW Coeff of Theresa (11.0-15.0) % Plt Count (150-400) K/uL MPV (7.40-12.00) fL Neut % (Auto) (48.0-80.0) % Lymph % (Auto) (16.0-40.0) % Moca % (Auto) (0.0-15.0) % Eos % (Auto) (0.0-7.0) % Baso % (Auto) (0.0-1.5) % Neut # (Auto) (1.4-5.7) K/uL Lymph # (Auto) (0.6-2.4) K/uL [place] # (Auto) (0.0-0.8) K/uL Eos # (Auto) (0.0-0.7) K/uL Baso # (Auto) (0.0-0.1) K/uL Nucleated RBC % /100WBC Nucleated RBCs # K/uL INR Sodium 141 (136-148) mmol/L Potassium 5.4 H (3.5-5.1) mmol/L Chloride 107 (98-107) mmol/L Carbon Dioxide 26.9 (21.0-32.0) mmol/L BUN 41 H (7.0-18.0) mg/dL Creatinine 1.4 H (0.8-1.3) mg/dL Est Cr Clr Drug Dosing 39.36 mL/min Estimated GFR (MDRD) 48.5 ml/min Glucose 151 H (74-106) mg/dL POC Glucose 141 H (60-110) mg/dL Calcium 8.5 (8.5-10.1) mg/dL Total Bilirubin (0.2-1.0) mg/dL AST (15-37) IU/L ALT (14-63) IU/L Alkaline Phosphatase (46-116) U/L Troponin I (0.000-0.056) ng/mL B-Natriuretic Peptide (<100) PG/ML Total Protein (6.4-8.2) g/dL Albumin (3.4-5.0) g/dL Globulin (2.6-4.0) g/dL Albumin/Globulin Ratio (0.9-1.6) Urine Color Urine Appearance Urine pH (5.0-8.0) Ur Specific [place] (1.001-1.035) Urine Protein (NEGATIVE) mg/dL Urine Glucose (UA) (NEGATIVE) mg/dL Urine Ketones (NEGATIVE) mg/dL Urine Occult Blood (NEGATIVE) Urine Nitrite (NEGATIVE) Urine Bilirubin (NEGATIVE) Urine Urobilinogen (<2.0) EU/dL Ur Leukocyte Esterase (NEGATIVE) Urine RBC (0-2/HPF) Urine WBC (0-5/HPF) Ur Epithelial Cells (NONE-FEW) Urine Bacteria (NEGATIVE) Florentino Results Last 24 Hours: Microbiology 05/07/19 18:30 Anaerobic Blood Culture - Final Blood - Venous - Lab Draw Med Orders - Current: Current Medications Furosemide (Lasix) 40 mg IVPUSH BID [facility] Last Admin: 05/08/19 08:11 Dose: 40 mg Insulin Aspart (Novolog) 0 unit SUBCUT TIDAC [facility]; Protocol Metoprolol Tartrate (Lopressor) 100 mg PO BID [facility] Last Admin: 05/08/19 08:07 Dose: 100 mg Multivitamins/Minerals (Prosight) 1 tab PO BID [facility] Last Admin: 05/08/19 08:10 Dose: 1 tab Tetrahydrozoline Hcl ([Visine]) 1 each EYERT QID PRN PRN Reason: Dry Eyes Discontinued Medications Apixaban (Eliquis) 5 mg PO BID [facility] Last Admin: 05/08/19 08:10 Dose: 5 mg Furosemide (Lasix) 20 mg IVPUSH ONETIME ONE Stop: 05/07/19 19:02 Last Admin: 05/07/19 19:06 Dose: 20 mg Furosemide (Lasix) Confirm Administered Dose 40 mg .ROUTE .STK-MED ONE Stop: 05/07/19 19:04 Last Admin: 05/07/19 20:53 Dose: Not Given Sodium Chloride (Normal Saline) 1,000 mls @ 125 mls/hr IV STAT [facility] Sodium Chloride (Normal Saline) 1,000 mls @ 125 mls/hr IV ASDIRECTED [facility] Sodium Chloride (Normal Saline) 1,000 mls @ 125 mls/hr IV .Bolus ONE Stop: 05/08/19 02:08 Last Admin: 05/07/19 18:25 Dose: 125 mls/hr - Exam General: Alert, Oriented Neck: Supple Lungs: Clear to Auscultation, Normal Respiratory Effort Cardiovascular: Regular Rate, Regular Rhythm GI/Abdominal Exam: Normal Bowel Sounds, Soft, Non-Tender (Male) Exam: Other (no hemmoriods, no blood on rectal exam) Extremities: Non-Tender, No Pedal Edema Skin: Warm, Dry, Intact Neurological: No New Focal Deficit - Problem List Review Problem List Initiated/Reviewed/Updated: Yes - My Orders Last 24 Hours: My Active Orders 05/07/19 19:48 Telemetry Monitoring [Cardiac Monitoring] [RC] Q8H 05/07/19 21:28 Patient's Own Medication [Ptom] 1 each EYERT QID PRN 05/07/19 21:29 Oxygen Therapy [RC] PRN VTE/DVT Education [RC] PER UNIT ROUTINE Vital Signs [RC] Q4H Resuscitation Status Routine 05/07/19 21:32 Antiembolic Devices [RC] PER UNIT ROUTINE Sequential Compression Device [OM.PC] Per Unit Routine 05/08/19 09:00 Beta-Carotene(A) w/C & E/Min [Prosight] 1 tab PO BID Furosemide [Lasix] 40 mg IVPUSH BID Metoprolol Tartrate [Lopressor] 100 mg PO BID - Plan Plan:: 83 yo male admitted with CHF exacerbation and acute kidney injury. CHF exacerbation continue lasix 40mg BID IV, fluid restrict and daily weights CASSIE: holding losartan, Creatinine 1.4 today Possible GI bleed: Patient reports dark stools Hgb dropped from 12.2 to 7.8 in 12 days. Protonix 40mg BID, Hemoccult pending, will transfuse one unit of pRBC due to concerns of symptomatic anemia, holding Eliquis.
[2019-05-08] MEDS: Pantoprazole 40 MG in Sodium Chloride 0.9% 10 ML IV SCH ×2 (10:29→23:11)
[2019-05-08] MEDS: Insulin Aspart 100 Units/ML 3 ML Pen SUBCUT SCH ×2 (12:12→17:20)
[2019-05-09 06:31] LABS: CARBON DIOXIDE,CO2 28.5 mmol/L (21.0-32.0); POTASSIUM,K 4.6 mmol/L (3.5-5.1)
[2019-05-09] MEDS: Insulin Aspart 100 Units/ML 3 ML Pen SUBCUT SCH ×3 (07:22→17:48)
[2019-05-09] MEDS: Furosemide 40 MG/4 ML VIAL IVPUSH SCH ×2 (08:24→14:43)
[2019-05-09] MEDS: Beta-Carotene (Vitamin A) w/Vitamin C & E plus Minerals Tab PO SCH ×2 (08:24→20:57)
[2019-05-09] MEDS: Metoprolol Tartrate 50 MG Tab PO SCH ×2 (08:25→20:57)
[2019-05-09] MEDS: Pantoprazole 40 MG in Sodium Chloride 0.9% 10 ML IV SCH ×2 (10:08→22:46)
--- NOTE | 2019-05-09 10:42 | PCM.PN ---
- General Info Date of Service: 05/09/19 Admission Dx/Problem (Free Text): Admission Diagnosis/Problem Admission Diagnosis/Problem Weakness - Review of Systems General: Reports: Fatigue. Denies: Weakness, Malaise, Chills Pulmonary: Denies: Shortness of Breath, Pleuritic Chest Pain Cardiovascular: Denies: Chest Pain, Palpitations Gastrointestinal: Denies: Abdominal Pain, Constipation, Decreased Appetite, Nausea, Vomiting Genitourinary: Denies: Dysuria, Frequency Musculoskeletal: Denies: Neck Pain, Shoulder Pain, Arm Pain Skin: Denies: Cyanosis, Jaundice, Mottled Neurological: Denies: Confusion, Dizziness, Headache - Patient Data Vitals - Most Recent: Last Vital Signs Temp 36.2 C 05/09/19 07:48 Pulse 83 05/09/19 08:25 Resp 18 05/09/19 07:48 BP 138/60 05/09/19 08:25 Pulse Ox 98 05/09/19 07:48 Weight - Most Recent: 78.6 kg I&O - Last 24 Hours: Intake & Output 05/08/19 05/09/19 05/09/19 22:59 06:59 14:59 Intake Total 1176 100 Output Total 1280 1225 Balance -104 -1125 Lab Results Last 24 Hours: Laboratory Results - last 24 hr 05/08/19 05/08/19 05/08/19 Range/Units 09:45 : 17:03 WBC 5.77 (4.0-11.0) K/uL RBC 2.85 L (4.50-5.90) M/uL Hgb 9.0 L (13.0-17.0) g/dL Hct 27.7 L (38.0-50.0) % MCV 97.2 (80.0-98.0) fL MCH 31.6 (27.0-32.0) pg MCHC 32.5 (31.0-37.0) g/dL RDW Std Deviation 54.6 (28.0-62.0) fl RDW Coeff of Theresa 16 H (11.0-15.0) % Plt Count 172 (150-400) K/uL MPV 9.00 (7.40-12.00) fL Neut % (Auto) (48.0-80.0) % Lymph % (Auto) (16.0-40.0) % [place] % (Auto) (0.0-15.0) % Eos % (Auto) (0.0-7.0) % Baso % (Auto) (0.0-1.5) % Neut # (Auto) (1.4-5.7) K/uL Lymph # (Auto) (0.6-2.4) K/uL [place] # (Auto) (0.0-0.8) K/uL Eos # (Auto) (0.0-0.7) K/uL Baso # (Auto) (0.0-0.1) K/uL Nucleated RBC % 0.0 /100WBC Nucleated RBCs # 0 K/uL Sodium (136-148) mmol/L Potassium (3.5-5.1) mmol/L Chloride (98-107) mmol/L Carbon Dioxide (21.0-32.0) mmol/L BUN (7.0-18.0) mg/dL Creatinine (0.8-1.3) mg/dL Est Cr Clr Drug Dosing mL/min Estimated GFR (MDRD) ml/min Glucose (74-106) mg/dL POC Glucose 224 H (60-110) mg/dL Calcium (8.5-10.1) mg/dL Blood Type A POSITIVE Antibody Screen NEGATIVE Crossmatch See Detail 05/08/19 05/09/19 05/09/19 Range/Units 17:03 06:10 06:10 WBC 4.77 (4.0-11.0) K/uL RBC 2.62 L (4.50-5.90) M/uL Hgb 8.3 L (13.0-17.0) g/dL Hct 25.2 L (38.0-50.0) % MCV 96.2 (80.0-98.0) fL MCH 31.7 (27.0-32.0) pg MCHC 32.9 (31.0-37.0) g/dL RDW Std Deviation 54.5 (28.0-62.0) fl RDW Coeff of Theresa 16 H (11.0-15.0) % Plt Count 156 (150-400) K/uL MPV 8.70 (7.40-12.00) fL Neut % (Auto) 63.6 (48.0-80.0) % Lymph % (Auto) 21.6 (16.0-40.0) % [place] % (Auto) 11.3 (0.0-15.0) % Eos % (Auto) 3.1 (0.0-7.0) % Baso % (Auto) 0.4 (0.0-1.5) % Neut # (Auto) 3.0 (1.4-5.7) K/uL Lymph # (Auto) 1.0 (0.6-2.4) K/uL [place] # (Auto) 0.5 (0.0-0.8) K/uL Eos # (Auto) 0.2 (0.0-0.7) K/uL Baso # (Auto) 0.0 (0.0-0.1) K/uL Nucleated RBC % 0.0 /100WBC Nucleated RBCs # 0 K/uL Sodium 140 (136-148) mmol/L Potassium 4.6 (3.5-5.1) mmol/L Chloride 104 (98-107) mmol/L Carbon Dioxide 28.5 (21.0-32.0) mmol/L BUN 46 H (7.0-18.0) mg/dL Creatinine 1.4 H (0.8-1.3) mg/dL Est Cr Clr Drug Dosing 39.36 mL/min Estimated GFR (MDRD) 48.5 ml/min Glucose 154 H (74-106) mg/dL POC Glucose 113 H (60-110) mg/dL Calcium 8.1 L (8.5-10.1) mg/dL Blood Type Antibody Screen Crossmatch 05/09/19 Range/Units 06:10 WBC (4.0-11.0) K/uL RBC (4.50-5.90) M/uL Hgb (13.0-17.0) g/dL Hct (38.0-50.0) % MCV (80.0-98.0) fL MCH (27.0-32.0) pg MCHC (31.0-37.0) g/dL RDW Std Deviation (28.0-62.0) fl RDW Coeff of Theresa (11.0-15.0) % Plt Count (150-400) K/uL MPV (7.40-12.00) fL Neut % (Auto) (48.0-80.0) % Lymph % (Auto) (16.0-40.0) % [place] % (Auto) (0.0-15.0) % Eos % (Auto) (0.0-7.0) % Baso % (Auto) (0.0-1.5) % Neut # (Auto) (1.4-5.7) K/uL Lymph # (Auto) (0.6-2.4) K/uL [place] # (Auto) (0.0-0.8) K/uL Eos # (Auto) (0.0-0.7) K/uL Baso # (Auto) (0.0-0.1) K/uL Nucleated RBC % /100WBC Nucleated RBCs # K/uL Sodium (136-148) mmol/L Potassium (3.5-5.1) mmol/L Chloride (98-107) mmol/L Carbon Dioxide (21.0-32.0) mmol/L BUN (7.0-18.0) mg/dL Creatinine (0.8-1.3) mg/dL Est Cr Clr Drug Dosing mL/min Estimated GFR (MDRD) ml/min Glucose (74-106) mg/dL POC Glucose 156 H (60-110) mg/dL Calcium (8.5-10.1) mg/dL Blood Type Antibody Screen Crossmatch Florentino Results Last 24 Hours: Microbiology 05/07/19 18:30 Aerobic Blood Culture - Preliminary Blood - Venous - Lab Draw NO GROWTH AFTER 1 DAY Anaerobic Blood Culture - Final 05/07/19 18:19 Aerobic Blood Culture - Preliminary Blood - Venous NO GROWTH AFTER 1 DAY Anaerobic Blood Culture - Preliminary NO GROWTH AFTER 1 DAY 05/08/19 09:30 Stool Occult Blood (FLOR[place]) - Final Stool / Feces POSITIVE OCCULT BLOOD REFERENCE RANGE: NEGATIVE Med Orders - Current: Current Medications Furosemide (Lasix) 40 mg IVPUSH [facility]ID[facility]IC [facility] Last Admin: 05/09/19 08:24 Dose: 40 mg Pantoprazole Sodium 40 mg/ (Sodium Chloride) 10 mls @ 300 mls/hr IV Q12H [facility] Last Admin: 05/09/19 10:08 Dose: 300 mls/hr Insulin Aspart (Novolog) 0 unit SUBCUT TIDAC [facility]; Protocol Last Admin: 05/09/19 07:22 Dose: 1 units Metoprolol Tartrate (Lopressor) 100 mg PO BID [facility] Last Admin: 05/09/19 08:25 Dose: 100 mg Multivitamins/Minerals (Prosight) 1 tab PO BID [facility] Last Admin: 05/09/19 08:24 Dose: 1 tab Tetrahydrozoline Hcl ([Visine]) 1 each EYERT QID PRN PRN Reason: Dry Eyes Discontinued Medications Apixaban (Eliquis) 5 mg PO BID [facility] Last Admin: 05/08/19 08:10 Dose: 5 mg Furosemide (Lasix) 20 mg IVPUSH ONETIME ONE Stop: 05/07/19 19:02 Last Admin: 05/07/19 19:06 Dose: 20 mg Furosemide (Lasix) Confirm Administered Dose 40 mg .ROUTE .STK-MED ONE Stop: 05/07/19 19:04 Last Admin: 05/07/19 20:53 Dose: Not Given Furosemide (Lasix) 40 mg IVPUSH BID [facility] Last Admin: 05/08/19 20:34 Dose: 40 mg Sodium Chloride (Normal Saline) 1,000 mls @ 125 mls/hr IV STAT [facility] Sodium Chloride (Normal Saline) 1,000 mls @ 125 mls/hr IV ASDIRECTED [facility] Sodium Chloride (Normal Saline) 1,000 mls @ 125 mls/hr IV .Bolus ONE Stop: 05/08/19 02:08 Last Admin: 05/07/19 18:25 Dose: 125 mls/hr - Exam General: Alert, Oriented, Cooperative Lungs: Clear to Auscultation, Normal Respiratory Effort Cardiovascular: Regular Rate, Irregular Rhythm GI/Abdominal Exam: Normal Bowel Sounds, Soft, Non-Tender Peripheral Pulses: 3+: Dorsalis Pedis (L), Dorsalis Pedis (R) - Problem List & Annotations (1) Congestive heart failure SNOMED Code(s): 95379170 Code(s): I50.9 - HEART FAILURE, UNSPECIFIED Status: Acute Current Visit: Yes (2) Generalized weakness SNOMED Code(s): 07058091 Code(s): R53.1 - WEAKNESS Status: Acute Current Visit: Yes (3) Atrial fibrillation SNOMED Code(s): 59070264 Code(s): I48.91 - UNSPECIFIED ATRIAL FIBRILLATION Status: Acute Current Visit: No (4) Lumbar back pain with radiculopathy affecting right lower extremity SNOMED Code(s): 550206883, 104713333 Code(s): M54.17 - RADICULOPATHY, LUMBOSACRAL REGION Status: Acute Current Visit: No - Problem List Review Problem List Initiated/Reviewed/Updated: Yes - Plan Plan:: 83 yo male admitted with CHF exacerbation and acute kidney injury. cont IV Lasix Monitor Creatinine S/P 1 PRBC, no bowel moment since yesterday Continue to hold Eliquis sec. to concern of ongoing GI bleed, continues to be in rate controlled Afib. IV PPI BID
[2019-05-10 06:16] LABS: CARBON DIOXIDE,CO2 29.6 mmol/L (21.0-32.0); POTASSIUM,K 4.5 mmol/L (3.5-5.1)
[2019-05-10] MEDS: Insulin Aspart 100 Units/ML 3 ML Pen SUBCUT SCH ×3 (07:43→17:27)
[2019-05-10] MEDS: Metoprolol Tartrate 50 MG Tab PO SCH ×2 (08:11→21:52)
[2019-05-10] MEDS: Beta-Carotene (Vitamin A) w/Vitamin C & E plus Minerals Tab PO SCH ×2 (08:11→21:52)
[2019-05-10] MEDS: Furosemide 40 MG/4 ML VIAL IVPUSH SCH ×2 (08:12→16:49)
[2019-05-10] MEDS ORDERED: Magnesium Sulfate/Water 2 GM in Premix Bag 1 BAG IV ONE (09:48)
[2019-05-10] MEDS: Pantoprazole 40 MG in Sodium Chloride 0.9% 10 ML IV SCH ×2 (10:23→21:52)
--- NOTE | 2019-05-10 18:56 | PCM.PN ---
<Ethan Ly M - Last Filed: 05/10/19 18:58> - General Info Date of Service: 05/10/19 Subjective Update: Reports improved SOB, tolerating PO, denies having bowel movement in past 1 day. - Patient Data Vitals - Most Recent: Last Vital Signs Temp 98.1 F 05/10/19 17:43 Pulse 91 05/10/19 17:43 Resp 18 05/10/19 17:43 BP 140/59 L 05/10/19 17:43 Pulse Ox 97 05/10/19 17:43 Weight - Most Recent: 75 kg I&O - Last 24 Hours: Intake & Output 05/10/19 05/10/19 05/10/19 06:59 14:59 22:59 Intake Total 423 29 4160 Output Total 1250 1025 Balance -400 15 150 Lab Results Last 24 Hours: Laboratory Results - last 24 hr 05/08/19 05/10/19 05/10/19 Range/Units 09:45 05:40 05:40 WBC 5.02 (4.0-11.0) K/uL RBC 2.42 L (4.50-5.90) M/uL Hgb 7.7 L (13.0-17.0) g/dL Hct 23.5 L (38.0-50.0) % MCV 97.1 (80.0-98.0) fL MCH 31.8 (27.0-32.0) pg MCHC 32.8 (31.0-37.0) g/dL RDW Std Deviation 55.3 (28.0-62.0) fl RDW Coeff of Theresa 16 H (11.0-15.0) % Plt Count 176 (150-400) K/uL MPV 8.70 (7.40-12.00) fL Neut % (Auto) 64.7 (48.0-80.0) % Lymph % (Auto) 18.9 (16.0-40.0) % Porter % (Auto) 11.4 (0.0-15.0) % Eos % (Auto) 4.8 (0.0-7.0) % Baso % (Auto) 0.2 (0.0-1.5) % Neut # (Auto) 3.3 (1.4-5.7) K/uL Lymph # (Auto) 1.0 (0.6-2.4) K/uL Porter # (Auto) 0.6 (0.0-0.8) K/uL Eos # (Auto) 0.2 (0.0-0.7) K/uL Baso # (Auto) 0.0 (0.0-0.1) K/uL Nucleated RBC % 0.0 /100WBC Nucleated RBCs # 0 K/uL Sodium 140 (136-148) mmol/L Potassium 4.5 (3.5-5.1) mmol/L Chloride 105 (98-107) mmol/L Carbon Dioxide 29.6 (21.0-32.0) mmol/L BUN 40 H (7.0-18.0) mg/dL Creatinine 1.4 H (0.8-1.3) mg/dL Est Cr Clr Drug Dosing 39.36 mL/min Estimated GFR (MDRD) 48.5 ml/min Glucose 155 H (74-106) mg/dL POC Glucose (60-110) mg/dL Calcium 8.1 L (8.5-10.1) mg/dL Phosphorus 4.8 H (2.6-4.7) mg/dL Magnesium 1.4 L (1.8-2.4) mg/dL Blood Type A POSITIVE Antibody Screen NEGATIVE Crossmatch See Detail 05/10/19 05/10/19 05/10/19 Range/Units 06:11 11:51 17:15 WBC (4.0-11.0) K/uL RBC (4.50-5.90) M/uL Hgb (13.0-17.0) g/dL Hct (38.0-50.0) % MCV (80.0-98.0) fL MCH (27.0-32.0) pg MCHC (31.0-37.0) g/dL RDW Std Deviation (28.0-62.0) fl RDW Coeff of Theresa (11.0-15.0) % Plt Count (150-400) K/uL MPV (7.40-12.00) fL Neut % (Auto) (48.0-80.0) % Lymph % (Auto) (16.0-40.0) % Porter % (Auto) (0.0-15.0) % Eos % (Auto) (0.0-7.0) % Baso % (Auto) (0.0-1.5) % Neut # (Auto) (1.4-5.7) K/uL Lymph # (Auto) (0.6-2.4) K/uL Porter # (Auto) (0.0-0.8) K/uL Eos # (Auto) (0.0-0.7) K/uL Baso # (Auto) (0.0-0.1) K/uL Nucleated RBC % /100WBC Nucleated RBCs # K/uL Sodium (136-148) mmol/L Potassium (3.5-5.1) mmol/L Chloride (98-107) mmol/L Carbon Dioxide (21.0-32.0) mmol/L BUN (7.0-18.0) mg/dL Creatinine (0.8-1.3) mg/dL Est Cr Clr Drug Dosing mL/min Estimated GFR (MDRD) ml/min Glucose (74-106) mg/dL POC Glucose 143 H 239 H 136 H (60-110) mg/dL Calcium (8.5-10.1) mg/dL Phosphorus (2.6-4.7) mg/dL Magnesium (1.8-2.4) mg/dL Blood Type Antibody Screen Crossmatch Florentino Results Last 24 Hours: Microbiology 05/07/19 18:30 Aerobic Blood Culture - Preliminary Blood - Venous - Lab Draw NO GROWTH AFTER 3 DAYS Anaerobic Blood Culture - Final 05/07/19 18:19 Aerobic Blood Culture - Preliminary Blood - Venous NO GROWTH AFTER 3 DAYS Anaerobic Blood Culture - Preliminary NO GROWTH AFTER 3 DAYS 05/07/19 21:30 Urine Culture - Final Urine, Clean Catch Enterococcus Faecalis Normal Urogenital Judy Med Orders - Current: Current Medications Furosemide (Lasix) 40 mg IVPUSH BIDDIURETIC [facility] Last Admin: 05/10/19 16:49 Dose: 40 mg Pantoprazole Sodium 40 mg/ (Sodium Chloride) 10 mls @ 300 mls/hr IV Q12H [facility] Last Admin: 05/10/19 10:23 Dose: 300 mls/hr Insulin Aspart (Novolog) 0 unit SUBCUT TIDAC [facility]; Protocol Last Admin: 05/10/19 17:27 Dose: Not Given Metoprolol Tartrate (Lopressor) 100 mg PO BID [facility] Last Admin: 05/10/19 08:11 Dose: 100 mg Multivitamins/Minerals (Prosight) 1 tab PO BID [facility] Last Admin: 05/10/19 08:11 Dose: 1 tab Tetrahydrozoline Hcl ([Visine]) 1 each EYERT QID PRN PRN Reason: Dry Eyes Discontinued Medications Apixaban (Eliquis) 5 mg PO BID [facility] Last Admin: 05/08/19 08:10 Dose: 5 mg Furosemide (Lasix) 20 mg IVPUSH ONETIME ONE Stop: 05/07/19 19:02 Last Admin: 05/07/19 19:06 Dose: 20 mg Furosemide (Lasix) Confirm Administered Dose 40 mg .ROUTE .STK-MED ONE Stop: 05/07/19 19:04 Last Admin: 05/07/19 20:53 Dose: Not Given Furosemide (Lasix) 40 mg IVPUSH BID [facility] Last Admin: 05/08/19 20:34 Dose: 40 mg Sodium Chloride (Normal Saline) 1,000 mls @ 125 mls/hr IV STAT [facility] Sodium Chloride (Normal Saline) 1,000 mls @ 125 mls/hr IV ASDIRECTED [facility] Sodium Chloride (Normal Saline) 1,000 mls @ 125 mls/hr IV .Bolus ONE Stop: 05/08/19 02:08 Last Admin: 05/07/19 18:25 Dose: 125 mls/hr Magnesium Sulfate 2 gm/ Premix 50 mls @ 25 mls/hr IV ONETIME ONE Stop: 05/10/19 11:47 Last Admin: 05/10/19 10:40 Dose: 25 mls/hr - Exam General: Alert, Oriented, Cooperative, No Acute Distress Lungs: Clear to Auscultation, Normal Respiratory Effort Cardiovascular: Regular Rate, Irregular Rhythm GI/Abdominal Exam: Normal Bowel Sounds, Soft, Non-Tender, No Distention Extremities: Other (1+ pitting edema bilaterally) - Problem List Review Problem List Initiated/Reviewed/Updated: Yes - My Orders Last 24 Hours: My Active Orders 05/10/19 09:06 Admission Status [Patient Status] [ADT] Routine 05/10/19 09:50 Transfuse PRBC [Transfuse Red Blood Cells] [COMM] Urgent 05/11/19 15:06 Echo 2D wo Cont [US] Urgent - Plan Plan:: 83 yo male admitted with CHF exacerbation and acute kidney injury. cont IV Lasix Assessment: 1. CHF exacerbation. 2. Acute normocytic anemia S/P 1 unit of PRBC's. 3. CASSIE. 4. Hypomagnesemia. 5. Atrial fibrillation, rate controlled. 6. Diabetes mellitus type 2. Plan: 1. For CHF exacerbation, continue IV lasix 40 mg BID, daily weights, strict I/O' s, low salt diet, fluid restriction. 2. For Acute normocytic anemia, will transfuse an additional unit of PRBC's today as patient's hemoglobin was 7.7. Will check post-transfusion hemoglobin. IV PPI bid. Cardiology was contacted who recommended continuing to hold Eliquis and order ECHO. 3. For hypomagnesemia, replete with 2g IV mag sulfate. 4. For diabetes mellitus type 2, SSI. <Mt Jose - Last Filed: 05/12/19 20:20> - Patient Data Vitals - Most Recent: Last Vital Signs Temp 36.6 C 05/12/19 19:10 Pulse 90 05/12/19 19:10 Resp 18 05/12/19 19:10 BP 109/47 L 05/12/19 19:10 Pulse Ox 94 L 05/12/19 19:10 I&O - Last 24 Hours: Intake & Output 05/12/19 05/12/19 05/12/19 06:59 14:59 22:59 Intake Total 620 1090 Output Total 1000 400 Balance -380 690 Lab Results Last 24 Hours: Laboratory Results - last 24 hr 05/12/19 05/12/19 05/12/19 Range/Units 05:35 05:35 07:42 WBC 4.65 (4.0-11.0) K/uL RBC 2.60 L (4.50-5.90) M/uL Hgb 8.2 L (13.0-17.0) g/dL Hct 25.0 L (38.0-50.0) % MCV 96.2 (80.0-98.0) fL MCH 31.5 (27.0-32.0) pg MCHC 32.8 (31.0-37.0) g/dL RDW Std Deviation 55.9 (28.0-62.0) fl RDW Coeff of Theresa 16 H (11.0-15.0) % Plt Count 179 (150-400) K/uL MPV 8.80 (7.40-12.00) fL Neut % (Auto) 63.2 (48.0-80.0) % Lymph % (Auto) 21.9 (16.0-40.0) % Porter % (Auto) 11.0 (0.0-15.0) % Eos % (Auto) 3.7 (0.0-7.0) % Baso % (Auto) 0.2 (0.0-1.5) % Neut # (Auto) 2.9 (1.4-5.7) K/uL Lymph # (Auto) 1.0 (0.6-2.4) K/uL Porter # (Auto) 0.5 (0.0-0.8) K/uL Eos # (Auto) 0.2 (0.0-0.7) K/uL Baso # (Auto) 0.0 (0.0-0.1) K/uL Nucleated RBC % 0.0 /100WBC Nucleated RBCs # 0 K/uL Sodium 140 (136-148) mmol/L Potassium 3.3 L (3.5-5.1) mmol/L Chloride 105 (98-107) mmol/L Carbon Dioxide 31.0 (21.0-32.0) mmol/L BUN 26 H (7.0-18.0) mg/dL Creatinine 1.2 (0.8-1.3) mg/dL Est Cr Clr Drug Dosing 45.92 mL/min Estimated GFR (MDRD) 58.0 ml/min Glucose 168 H (74-106) mg/dL POC Glucose 158 H (60-110) mg/dL Calcium 7.7 L (8.5-10.1) mg/dL 05/12/19 05/12/19 Range/Units 11:52 16:21 WBC (4.0-11.0) K/uL RBC (4.50-5.90) M/uL Hgb (13.0-17.0) g/dL Hct (38.0-50.0) % MCV (80.0-98.0) fL MCH (27.0-32.0) pg MCHC (31.0-37.0) g/dL RDW Std Deviation (28.0-62.0) fl RDW Coeff of Tehresa (11.0-15.0) % Plt Count (150-400) K/uL MPV (7.40-12.00) fL Neut % (Auto) (48.0-80.0) % Lymph % (Auto) (16.0-40.0) % Porter % (Auto) (0.0-15.0) % Eos % (Auto) (0.0-7.0) % Baso % (Auto) (0.0-1.5) % Neut # (Auto) (1.4-5.7) K/uL Lymph # (Auto) (0.6-2.4) K/uL Porter # (Auto) (0.0-0.8) K/uL Eos # (Auto) (0.0-0.7) K/uL Baso # (Auto) (0.0-0.1) K/uL Nucleated RBC % /100WBC Nucleated RBCs # K/uL Sodium (136-148) mmol/L Potassium (3.5-5.1) mmol/L Chloride (98-107) mmol/L Carbon Dioxide (21.0-32.0) mmol/L BUN (7.0-18.0) mg/dL Creatinine (0.8-1.3) mg/dL Est Cr Clr Drug Dosing mL/min Estimated GFR (MDRD) ml/min Glucose (74-106) mg/dL POC Glucose 215 H 156 H (60-110) mg/dL Calcium (8.5-10.1) mg/dL Florentino Results Last 24 Hours: Microbiology 05/07/19 18:30 Aerobic Blood Culture - Final Blood - Venous - Lab Draw NO GROWTH AFTER 5 DAYS Anaerobic Blood Culture - Final 05/07/19 18:19 Aerobic Blood Culture - Final Blood - Venous NO GROWTH AFTER 5 DAYS Anaerobic Blood Culture - Final NO GROWTH AFTER 5 DAYS Med Orders - Current: Current Medications Docusate Sodium (Colace) 100 mg PO BID PRN PRN Reason: Constipation Furosemide (Lasix) 40 mg PO DAILY [facility] Last Admin: 05/12/19 09:09 Dose: 40 mg Insulin Aspart (Novolog) 0 unit SUBCUT TIDAC [facility]; Protocol Last Admin: 05/12/19 18:18 Dose: 1 units Metoprolol Tartrate (Lopressor) 100 mg PO BID [facility] Last Admin: 05/12/19 09:09 Dose: 100 mg Multivitamins/Minerals (Prosight) 1 tab PO BID [facility] Last Admin: 05/12/19 09:09 Dose: 1 tab Nystatin (Nystatin Crm) 1 gm TOP BID [facility] Last Admin: 05/12/19 09:10 Dose: 1 gm Pantoprazole Sodium (Protonix) 40 mg PO BIDAC [facility] Last Admin: 05/12/19 17:23 Dose: 40 mg Tetrahydrozoline Hcl ([Visine]) 1 each EYERT QID PRN PRN Reason: Dry Eyes Polyethylene Glycol (Miralax) 17 gm PO DAILY PRN PRN Reason: constipation Discontinued Medications Apixaban (Eliquis) 5 mg PO BID [facility] Last Admin: 05/08/19 08:10 Dose: 5 mg Furosemide (Lasix) 20 mg IVPUSH ONETIME ONE Stop: 05/07/19 19:02 Last Admin: 05/07/19 19:06 Dose: 20 mg Furosemide (Lasix) Confirm Administered Dose 40 mg .ROUTE .STK-MED ONE Stop: 05/07/19 19:04 Last Admin: 05/07/19 20:53 Dose: Not Given Furosemide (Lasix) 40 mg IVPUSH BID [facility] Last Admin: 05/08/19 20:34 Dose: 40 mg Furosemide (Lasix) 40 mg IVPUSH BIDDIURETIC [facility] Last Admin: 05/11/19 09:24 Dose: 40 mg Sodium Chloride (Normal Saline) 1,000 mls @ 125 mls/hr IV STAT [facility] Sodium Chloride (Normal Saline) 1,000 mls @ 125 mls/hr IV ASDIRECTED [facility] Sodium Chloride (Normal Saline) 1,000 mls @ 125 mls/hr IV .Bolus ONE Stop: 05/08/19 02:08 Last Admin: 05/07/19 18:25 Dose: 125 mls/hr Pantoprazole Sodium 40 mg/ (Sodium Chloride) 10 mls @ 300 mls/hr IV Q12H [facility] Last Admin: 05/11/19 21:30 Dose: 300 mls/hr Magnesium Sulfate 2 gm/ Premix 50 mls @ 25 mls/hr IV ONETIME ONE Stop: 05/10/19 11:47 Last Admin: 05/10/19 10:40 Dose: 25 mls/hr Potassium Chloride (Klor-Con M20) 40 meq PO ONETIME ONE Stop: 05/12/19 07:24 Last Admin: 05/12/19 08:00 Dose: 40 meq - Problem List & Annotations (1) Congestive heart failure SNOMED Code(s): 96676089 Code(s): I50.9 - HEART FAILURE, UNSPECIFIED Status: Acute Current Visit: Yes (2) Generalized weakness SNOMED Code(s): 82328105 Code(s): R53.1 - WEAKNESS Status: Acute Current Visit: Yes (3) Atrial fibrillation SNOMED Code(s): 05587365 Code(s): I48.91 - UNSPECIFIED ATRIAL FIBRILLATION Status: Acute Current Visit: No (4) Lumbar back pain with radiculopathy affecting right lower extremity SNOMED Code(s): 074419722, 393032132 Code(s): M54.17 - RADICULOPATHY, LUMBOSACRAL REGION Status: Acute Current Visit: No - Plan Plan:: I have seen and evaluated the patient and agree with the residents note unless specified in my note
[2019-05-11 06:45] LABS: CARBON DIOXIDE,CO2 31.2 mmol/L (21.0-32.0); POTASSIUM,K 3.6 mmol/L (3.5-5.1)
[2019-05-11] MEDS: Beta-Carotene (Vitamin A) w/Vitamin C & E plus Minerals Tab PO SCH ×2 (09:24→21:15)
[2019-05-11] MEDS: Metoprolol Tartrate 50 MG Tab PO SCH ×2 (09:24→21:15)
[2019-05-11] MEDS: Furosemide 40 MG/4 ML VIAL IVPUSH SCH (09:24)
[2019-05-11] MEDS: Insulin Aspart 100 Units/ML 3 ML Pen SUBCUT SCH ×3 (09:24→17:07)
[2019-05-11] MEDS: Pantoprazole 40 MG in Sodium Chloride 0.9% 10 ML IV SCH ×2 (11:23→21:30)
[2019-05-11] MEDS ORDERED: Docusate Sodium 100 MG Cap PO PRN (11:46)
--- NOTE | 2019-05-11 14:56 | PCM.CONS ---
H&P History of Present Illness - General Date of Service: 05/11/19 Admit Problem/Dx: Admission Diagnosis/Problem Admission Diagnosis/Problem Weakness Source of Information: Patient, Provider History Limitations: Reports: No Limitations - History of Present Illness Initial Comments - Free Text/Narative: Patient is an 83 yr old male with a history of HTN, HLD, stroke, DM II, newly diagnosed A.fib and CHF who was admitted for acute renal failure and CHF exacerbation. He was recently started on anticoagulants before admission. While here he had a black tarry stool and his hemoglobin dropped to 7.7. He received one unit of blood and his hemoglobin partially responded so he received a second unit. His last hgb was 8.5. He went 2 days without a BM, and no this morning he had 2 more. He denies any worsening dyspnea, or dizziness/light headedness. His last colonoscopy was in [address] Medina and he was found to have a 5mm tubular adenoma of the cecum and a larger almost 2cm tubular adenoma of the transverse colon as well as diverticulosis. His FOBT was positive. He denies any heartburn, indigestion or epigastric pain. He denies nausea or vomiting. He doesn't know if he has had any changes in the color or consistency of his stool due to poor vision/macular degeneration. - Related Data Allergies/Adverse Reactions: Allergies Allergy/AdvReac Type Severity Reaction Status Date / Time celery [Celery] Allergy Hives Verified 05/07/19 20:51 Penicillins Allergy Rash Verified 05/07/19 20:51 Adhesives Allergy Hives Uncoded 05/07/19 20:51 Jeruselum Artichoke Allergy Hives Uncoded 05/07/19 20:51 Leachy Nuts Allergy Hives Uncoded 05/07/19 20:51 Parsley Allergy mild hives Uncoded 05/07/19 20:51 Alcoa Seeds Allergy Hives Uncoded 05/07/19 20:51 Home Medications: Home Meds Losartan Potassium 100 mg PO DAILY 02/23/14 [History] Metoprolol Tartrate 100 mg PO BID 02/23/14 [History] atorvaSTATin Calcium [Atorvastatin Calcium] 40 mg PO BEDTIME 02/23/14 [History] metFORMIN [Glucophage] 1,000 mg PO BID 02/23/14 [History] Cholecalciferol (Vitamin D3) [Vitamin D3] 2,000 units PO DAILY 01/30/17 [History ] SitaGLIPtin [Januvia] 100 mg PO DAILY 01/30/17 [History] Tetrahydrozoline HCl [Visine] 1 drop EYERT ASDIRECTED PRN 01/30/17 [History] Vit A/Vit C/Vit E/Zinc/Copper [Preservision] 1 tab PO BID 07/30/18 [History] Apixaban [Eliquis] 5 mg PO BID 30 Days #60 tablet 05/01/19 [Rx] Aspirin [Adult Low Dose Aspirin EC] 81 mg PO DAILY #30 tablet. 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16, wears glasses , tracey hearing aids Cardiovascular History: Reports: Afib, High Cholesterol, Hypertension, CO Respiratory History: Reports: None Gastrointestinal History: Reports: Other (See Below) Other Gastrointestinal History: hernia Genitourinary History: Reports: Prostate Disorder Musculoskeletal History: Reports: Other (See Below) Other Musculoskeletal History: fx fingers Neurological History: Reports: TIA, Other (See Below) Other Neuro History: unsteady gait, TIA March,-weaker on left side, also memomy and walk affected Psychiatric History: Reports: Depression Endocrine/Metabolic History: Reports: Diabetes, Type II Hematologic History: Reports: Anemia - Infectious Disease History Infectious Disease History: Reports: Chicken Pox, Mumps - Past Surgical History HEENT Surgical History: Reports: Cataract Surgery, Eye Surgery, Tonsillectomy Other HEENT Surgeries/Procedures: prostetic left eye, 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, GI Surgical History: Reports: Hernia, Inguinal Other GI Surgeries/Procedures: inguinal hernia repair x2 Male Surgical History: Reports: TURP-Transurethral Resection of Prostate Social & Family History - Family History Family Medical History: Noncontributory Cardiac: Reports: Hypertension, CO - Tobacco Use Smoking Status *Q: Former Smoker Used Tobacco, but Quit: Yes Month/Year Tobacco Last Used: 25 - Caffeine Use Caffeine Use: Reports: Coffee, Soda - Recreational Drug Use Recreational Drug Use: No H&P Review of Systems - Review of Systems: Review Of Systems: Comprehensive ROS is negative, except as noted in HPI. Exam - Exam Exam: See Below - Vital Signs Vital Signs: Last Vital Signs Temp 36.4 C 05/11/19 08:00 Pulse 86 05/11/19 09:24 Resp 16 05/11/19 08:00 BP 120/45 L 05/11/19 09:24 Pulse Ox 92 L 05/11/19 08:00 Weight: 73.89 kg - Exam General: Alert, Oriented, Cooperative HEENT: Conjunctiva Clear, Mucosa Moist & Yoe, Posterior Pharynx Clear Neck: Supple, Trachea Midline Lungs: Clear to Auscultation, Normal Respiratory Effort Cardiovascular: Regular Rate, Regular Rhythm GI/Abdominal Exam: Soft, Non-Tender, No Distention, No Mass Back Exam: Normal Inspection, Full Range of Motion Extremities: Normal Inspection, Normal Range of Motion - Patient Data Lab Results Last 24 hrs: Laboratory Results - last 24 hr 05/08/19 05/10/19 05/11/19 Range/Units 09:45 17:15 05:07 WBC 4.87 (4.0-11.0) K/uL RBC 2.69 L (4.50-5.90) M/uL Hgb 8.5 L (13.0-17.0) g/dL Hct 25.8 L (38.0-50.0) % MCV 95.9 (80.0-98.0) fL MCH 31.6 (27.0-32.0) pg MCHC 32.9 (31.0-37.0) g/dL RDW Std Deviation 56.4 (28.0-62.0) fl RDW Coeff of Theresa 16 H (11.0-15.0) % Plt Count 176 (150-400) K/uL MPV 9.00 (7.40-12.00) fL Neut % (Auto) 68.8 (48.0-80.0) % Lymph % (Auto) 17.2 (16.0-40.0) % [place] % (Auto) 9.9 (0.0-15.0) % Eos % (Auto) 3.7 (0.0-7.0) % Baso % (Auto) 0.4 (0.0-1.5) % Neut # (Auto) 3.4 (1.4-5.7) K/uL Lymph # (Auto) 0.8 (0.6-2.4) K/uL [place] # (Auto) 0.5 (0.0-0.8) K/uL Eos # (Auto) 0.2 (0.0-0.7) K/uL Baso # (Auto) 0.0 (0.0-0.1) K/uL Nucleated RBC % 0.0 /100WBC Nucleated RBCs # 0 K/uL Sodium (136-148) mmol/L Potassium (3.5-5.1) mmol/L Chloride (98-107) mmol/L Carbon Dioxide (21.0-32.0) mmol/L BUN (7.0-18.0) mg/dL Creatinine (0.8-1.3) mg/dL Est Cr Clr Drug Dosing mL/min Estimated GFR (MDRD) ml/min Glucose (74-106) mg/dL POC Glucose 136 H (60-110) mg/dL Calcium (8.5-10.1) mg/dL Total Bilirubin (0.2-1.0) mg/dL AST (15-37) IU/L ALT (14-63) IU/L Alkaline Phosphatase (46-116) U/L Total Protein (6.4-8.2) g/dL Albumin (3.4-5.0) g/dL Globulin (2.6-4.0) g/dL Albumin/Globulin Ratio (0.9-1.6) Crossmatch See Detail 05/11/19 05/11/19 05/11/19 Range/Units 05:07 06:03 09:22 WBC (4.0-11.0) K/uL RBC (4.50-5.90) M/uL Hgb (13.0-17.0) g/dL Hct (38.0-50.0) % MCV (80.0-98.0) fL MCH (27.0-32.0) pg MCHC (31.0-37.0) g/dL RDW Std Deviation (28.0-62.0) fl RDW Coeff of Theresa (11.0-15.0) % Plt Count (150-400) K/uL MPV (7.40-12.00) fL Neut % (Auto) (48.0-80.0) % Lymph % (Auto) (16.0-40.0) % [place] % (Auto) (0.0-15.0) % Eos % (Auto) (0.0-7.0) % Baso % (Auto) (0.0-1.5) % Neut # (Auto) (1.4-5.7) K/uL Lymph # (Auto) (0.6-2.4) K/uL [place] # (Auto) (0.0-0.8) K/uL Eos # (Auto) (0.0-0.7) K/uL Baso # (Auto) (0.0-0.1) K/uL Nucleated RBC % /100WBC Nucleated RBCs # K/uL Sodium 141 (136-148) mmol/L Potassium 3.6 (3.5-5.1) mmol/L Chloride 105 (98-107) mmol/L Carbon Dioxide 31.2 (21.0-32.0) mmol/L BUN 31 H (7.0-18.0) mg/dL Creatinine 1.3 (0.8-1.3) mg/dL Est Cr Clr Drug Dosing 42.38 mL/min Estimated GFR (MDRD) 52.9 ml/min Glucose 147 H (74-106) mg/dL POC Glucose 163 H 233 H (60-110) mg/dL Calcium 7.8 L (8.5-10.1) mg/dL Total Bilirubin 0.5 (0.2-1.0) mg/dL AST 14 L (15-37) IU/L ALT 19 (14-63) IU/L Alkaline Phosphatase 69 (46-116) U/L Total Protein 5.0 L (6.4-8.2) g/dL Albumin 2.7 L (3.4-5.0) g/dL Globulin 2.3 L (2.6-4.0) g/dL Albumin/Globulin Ratio 1.2 (0.9-1.6) Crossmatch 05/11/19 Range/Units 11:20 WBC (4.0-11.0) K/uL RBC (4.50-5.90) M/uL Hgb (13.0-17.0) g/dL Hct (38.0-50.0) % MCV (80.0-98.0) fL MCH (27.0-32.0) pg MCHC (31.0-37.0) g/dL RDW Std Deviation (28.0-62.0) fl RDW Coeff of Theresa (11.0-15.0) % Plt Count (150-400) K/uL MPV (7.40-12.00) fL Neut % (Auto) (48.0-80.0) % Lymph % (Auto) (16.0-40.0) % [place] % (Auto) (0.0-15.0) % Eos % (Auto) (0.0-7.0) % Baso % (Auto) (0.0-1.5) % Neut # (Auto) (1.4-5.7) K/uL Lymph # (Auto) (0.6-2.4) K/uL [place] # (Auto) (0.0-0.8) K/uL Eos # (Auto) (0.0-0.7) K/uL Baso # (Auto) (0.0-0.1) K/uL Nucleated RBC % /100WBC Nucleated RBCs # K/uL Sodium (136-148) mmol/L Potassium (3.5-5.1) mmol/L Chloride (98-107) mmol/L Carbon Dioxide (21.0-32.0) mmol/L BUN (7.0-18.0) mg/dL Creatinine (0.8-1.3) mg/dL Est Cr Clr Drug Dosing mL/min Estimated GFR (MDRD) ml/min Glucose (74-106) mg/dL POC Glucose 215 H (60-110) mg/dL Calcium (8.5-10.1) mg/dL Total Bilirubin (0.2-1.0) mg/dL AST (15-37) IU/L ALT (14-63) IU/L Alkaline Phosphatase (46-116) U/L Total Protein (6.4-8.2) g/dL Albumin (3.4-5.0) g/dL Globulin (2.6-4.0) g/dL Albumin/Globulin Ratio (0.9-1.6) Crossmatch Result Diagrams: 05/11/19 05:07 05/11/19 05:07 Florentino Results Last 24 hrs: Microbiology 05/07/19 18:30 Aerobic Blood Culture - Preliminary Blood - Venous - Lab Draw NO GROWTH AFTER 3 DAYS Anaerobic Blood Culture - Final 05/07/19 18:19 Aerobic Blood Culture - Preliminary Blood - Venous NO GROWTH AFTER 3 DAYS Anaerobic Blood Culture - Preliminary NO GROWTH AFTER 3 DAYS 05/07/19 21:30 Urine Culture - Final Urine, Clean Catch Enterococcus Faecalis Normal Urogenital Judy Consult PN Assessment/Plan Procedures: Procedures AIRWAY INHALATION TREATMENT (07/30/18) ASSAY OF AMYLASE (07/30/18) ASSAY OF LACTIC ACID (04/29/19) ASSAY OF LIPASE (07/30/18) ASSAY OF NATRIURETIC PEPTIDE (04/29/19) ASSAY OF TROPONIN QUANT (04/29/19) ASSAY THYROID STIM HORMONE (04/29/19) BLOOD CULTURE FOR BACTERIA (04/29/19) BLOOD GASES ANY COMBINATION (04/29/19) COLONOSCOPY AND BIOPSY (03/11/14) COLONOSCOPY W/LESION REMOVAL (03/11/14) COMPLETE CBC AUTOMATED (03/30/14) COMPLETE CBC W/AUTO DIFF WBC (04/29/19) COMPREHEN METABOLIC PANEL (04/29/19) CONTRAST X-RAY ESOPHAGUS (12/15/17) CT ABD & PELVIS W/O CONTRAST (07/30/18) CT ANGIOGRAPHY CHEST (04/29/19) CT HEAD/BRAIN W/O DYE (09/15/15) CULTURE SCREEN ONLY (07/30/18) DESTRUCT PREMALG LES 2-14 (03/30/14) DESTRUCT PREMALG LESION (03/30/14) ELECTROCARDIOGRAM TRACING (04/29/19) EMERGENCY DEPT VISIT (04/29/19) EMERGENCY DEPT VISIT (11/29/17) EMERGENCY DEPT VISIT (09/15/15) EMERGENCY DEPT VISIT (04/12/15) EXTRACRANIAL BILAT STUDY (04/12/15) GLUCOSE BLOOD TEST (04/29/19) GLYCOSYLATED HEMOGLOBIN TEST (04/29/19) INFLUENZA ASSAY W/OPTIC (04/29/19) LIPID PANEL (04/29/19) METABOLIC PANEL TOTAL CA (09/15/13) MRI BRAIN STEM W/O & W/DYE (04/12/15) NEUROMUSCULAR REEDUCATION (05/25/15) OFFICE/OUTPATIENT VISIT EST (10/19/15) OFFICE/OUTPATIENT VISIT EST (03/17/14) OFFICE/OUTPATIENT VISIT EST (09/15/13) OFFICE/OUTPATIENT VISIT NEW (06/21/15) PROTHROMBIN TIME (04/29/19) PT EVAL LOW COMPLEX 20 MIN (12/25/17) PT EVALUATION (05/08/15) REPAIR EYELID DEFECT (02/05/17) ROUTINE VENIPUNCTURE (04/29/19) STREP A ASSAY W/OPTIC (07/30/18) THER/PROPH/DIAG INJ IV PUSH (04/29/19) THER/PROPH/DIAG INJ SC/IM (04/29/19) THERAPEUTIC EXERCISES (12/25/17) TISSUE EXAM BY PATHOLOGIST (03/11/14) TTE W/DOPPLER COMPLETE (04/29/19) UR ALBUMIN SEMIQUANTITATIVE (03/30/14) URINALYSIS AUTO W/SCOPE (04/29/19) URINE CULTURE/COLONY COUNT (04/29/19) WITHDRAWAL OF ARTERIAL BLOOD (04/29/19) X-RAY EXAM CHEST 1 VIEW (04/29/19) X-RAY EXAM L-S SPINE 2/3 VWS (11/29/17) (1) Fecal occult blood test positive SNOMED Code(s): 39638034 Code(s): R19.5 - OTHER FECAL ABNORMALITIES Current Visit: Yes Problem List Initiated/Reviewed/Updated: Yes Plan: The patient's newest bowel movements may be left over blood from an initial bleed. I visited with his medicine team. Continue PPI BID. Can be oral instead of IV. Would check stool for H pylori. Will recheck hemoglobin. If stable can be discharged home tomorrow on PPIs and follow up with me in clinic in 2 weeks. If his hemoglobin drops or he has further melanic stool, I may need to perform an EGD while in house. To evaluate the colon, I would prefer a barium enema which can be scheduled as an outpatient as long as he stays stable.
[2019-05-11] MEDS: Nystatin Crm 30 GM Tube TOP SCH ×2 (15:44→21:15)
--- NOTE | 2019-05-11 16:03 | PCM.PN ---
<Ethan Ly - Last Filed: 05/11/19 15:57> - General Info Date of Service: 05/11/19 Subjective Update: Patient reports further improvement in breathing today. He reports black stool this morning. - Patient Data Vitals - Most Recent: Last Vital Signs Temp 98.1 F 05/11/19 12:00 Pulse 75 05/11/19 12:00 Resp 20 05/11/19 12:00 BP 108/42 L 05/11/19 12:00 Pulse Ox 93 L 05/11/19 12:00 Weight - Most Recent: 73.89 kg I&O - Last 24 Hours: Intake & Output 05/11/19 05/11/19 05/11/19 06:59 14:59 22:59 Intake Total 200 Output Total 1890 Balance -1690 Lab Results Last 24 Hours: Laboratory Results - last 24 hr 05/08/19 05/10/19 05/11/19 Range/Units 09:45 17:15 05:07 WBC 4.87 (4.0-11.0) K/uL RBC 2.69 L (4.50-5.90) M/uL Hgb 8.5 L (13.0-17.0) g/dL Hct 25.8 L (38.0-50.0) % MCV 95.9 (80.0-98.0) fL MCH 31.6 (27.0-32.0) pg MCHC 32.9 (31.0-37.0) g/dL RDW Std Deviation 56.4 (28.0-62.0) fl RDW Coeff of Theresa 16 H (11.0-15.0) % Plt Count 176 (150-400) K/uL MPV 9.00 (7.40-12.00) fL Neut % (Auto) 68.8 (48.0-80.0) % Lymph % (Auto) 17.2 (16.0-40.0) % [place] % (Auto) 9.9 (0.0-15.0) % Eos % (Auto) 3.7 (0.0-7.0) % Baso % (Auto) 0.4 (0.0-1.5) % Neut # (Auto) 3.4 (1.4-5.7) K/uL Lymph # (Auto) 0.8 (0.6-2.4) K/uL [place] # (Auto) 0.5 (0.0-0.8) K/uL Eos # (Auto) 0.2 (0.0-0.7) K/uL Baso # (Auto) 0.0 (0.0-0.1) K/uL Nucleated RBC % 0.0 /100WBC Nucleated RBCs # 0 K/uL Sodium (136-148) mmol/L Potassium (3.5-5.1) mmol/L Chloride (98-107) mmol/L Carbon Dioxide (21.0-32.0) mmol/L BUN (7.0-18.0) mg/dL Creatinine (0.8-1.3) mg/dL Est Cr Clr Drug Dosing mL/min Estimated GFR (MDRD) ml/min Glucose (74-106) mg/dL POC Glucose 136 H (60-110) mg/dL Calcium (8.5-10.1) mg/dL Total Bilirubin (0.2-1.0) mg/dL AST (15-37) IU/L ALT (14-63) IU/L Alkaline Phosphatase (46-116) U/L Total Protein (6.4-8.2) g/dL Albumin (3.4-5.0) g/dL Globulin (2.6-4.0) g/dL Albumin/Globulin Ratio (0.9-1.6) Crossmatch See Detail 05/11/19 05/11/19 05/11/19 Range/Units 05:07 06:03 09:22 WBC (4.0-11.0) K/uL RBC (4.50-5.90) M/uL Hgb (13.0-17.0) g/dL Hct (38.0-50.0) % MCV (80.0-98.0) fL MCH (27.0-32.0) pg MCHC (31.0-37.0) g/dL RDW Std Deviation (28.0-62.0) fl RDW Coeff of Theresa (11.0-15.0) % Plt Count (150-400) K/uL MPV (7.40-12.00) fL Neut % (Auto) (48.0-80.0) % Lymph % (Auto) (16.0-40.0) % [place] % (Auto) (0.0-15.0) % Eos % (Auto) (0.0-7.0) % Baso % (Auto) (0.0-1.5) % Neut # (Auto) (1.4-5.7) K/uL Lymph # (Auto) (0.6-2.4) K/uL [place] # (Auto) (0.0-0.8) K/uL Eos # (Auto) (0.0-0.7) K/uL Baso # (Auto) (0.0-0.1) K/uL Nucleated RBC % /100WBC Nucleated RBCs # K/uL Sodium 141 (136-148) mmol/L Potassium 3.6 (3.5-5.1) mmol/L Chloride 105 (98-107) mmol/L Carbon Dioxide 31.2 (21.0-32.0) mmol/L BUN 31 H (7.0-18.0) mg/dL Creatinine 1.3 (0.8-1.3) mg/dL Est Cr Clr Drug Dosing 42.38 mL/min Estimated GFR (MDRD) 52.9 ml/min Glucose 147 H (74-106) mg/dL POC Glucose 163 H 233 H (60-110) mg/dL Calcium 7.8 L (8.5-10.1) mg/dL Total Bilirubin 0.5 (0.2-1.0) mg/dL AST 14 L (15-37) IU/L ALT 19 (14-63) IU/L Alkaline Phosphatase 69 (46-116) U/L Total Protein 5.0 L (6.4-8.2) g/dL Albumin 2.7 L (3.4-5.0) g/dL Globulin 2.3 L (2.6-4.0) g/dL Albumin/Globulin Ratio 1.2 (0.9-1.6) Crossmatch 05/11/19 Range/Units 11:20 WBC (4.0-11.0) K/uL RBC (4.50-5.90) M/uL Hgb (13.0-17.0) g/dL Hct (38.0-50.0) % MCV (80.0-98.0) fL MCH (27.0-32.0) pg MCHC (31.0-37.0) g/dL RDW Std Deviation (28.0-62.0) fl RDW Coeff of Theresa (11.0-15.0) % Plt Count (150-400) K/uL MPV (7.40-12.00) fL Neut % (Auto) (48.0-80.0) % Lymph % (Auto) (16.0-40.0) % [place] % (Auto) (0.0-15.0) % Eos % (Auto) (0.0-7.0) % Baso % (Auto) (0.0-1.5) % Neut # (Auto) (1.4-5.7) K/uL Lymph # (Auto) (0.6-2.4) K/uL [place] # (Auto) (0.0-0.8) K/uL Eos # (Auto) (0.0-0.7) K/uL Baso # (Auto) (0.0-0.1) K/uL Nucleated RBC % /100WBC Nucleated RBCs # K/uL Sodium (136-148) mmol/L Potassium (3.5-5.1) mmol/L Chloride (98-107) mmol/L Carbon Dioxide (21.0-32.0) mmol/L BUN (7.0-18.0) mg/dL Creatinine (0.8-1.3) mg/dL Est Cr Clr Drug Dosing mL/min Estimated GFR (MDRD) ml/min Glucose (74-106) mg/dL POC Glucose 215 H (60-110) mg/dL Calcium (8.5-10.1) mg/dL Total Bilirubin (0.2-1.0) mg/dL AST (15-37) IU/L ALT (14-63) IU/L Alkaline Phosphatase (46-116) U/L Total Protein (6.4-8.2) g/dL Albumin (3.4-5.0) g/dL Globulin (2.6-4.0) g/dL Albumin/Globulin Ratio (0.9-1.6) Crossmatch Florentino Results Last 24 Hours: Microbiology 05/07/19 18:30 Aerobic Blood Culture - Preliminary Blood - Venous - Lab Draw NO GROWTH AFTER 3 DAYS Anaerobic Blood Culture - Final 05/07/19 18:19 Aerobic Blood Culture - Preliminary Blood - Venous NO GROWTH AFTER 3 DAYS Anaerobic Blood Culture - Preliminary NO GROWTH AFTER 3 DAYS 05/07/19 21:30 Urine Culture - Final Urine, Clean Catch Enterococcus Faecalis Normal Urogenital Judy Med Orders - Current: Current Medications Docusate Sodium (Colace) 100 mg PO BID PRN PRN Reason: Constipation Furosemide (Lasix) 40 mg PO DAILY [facility] Pantoprazole Sodium 40 mg/ (Sodium Chloride) 10 mls @ 300 mls/hr IV Q12H [facility] [place] Last Admin: 05/11/19 11:23 Dose: 300 mls/hr Insulin Aspart (Novolog) 0 unit SUBCUT TIDAC [facility]; Protocol Last Admin: 05/11/19 12:52 Dose: 2 units Metoprolol Tartrate (Lopressor) 100 mg PO BID [facility] [place] Last Admin: 05/11/19 09:24 Dose: 100 mg Multivitamins/Minerals (Prosight) 1 tab PO BID [facility] [place] Last Admin: 05/11/19 09:24 Dose: 1 tab Nystatin (Nystatin Crm) 1 gm TOP BID [facility] [place] Last Admin: 05/11/19 15:44 Dose: 1 gm Tetrahydrozoline Hcl ([Visine]) 1 each EYERT QID PRN PRN Reason: Dry Eyes Discontinued Medications Apixaban (Eliquis) 5 mg PO BID [facility] Last Admin: 05/08/19 08:10 Dose: 5 mg Furosemide (Lasix) 20 mg IVPUSH ONETIME ONE Stop: 05/07/19 19:02 Last Admin: 05/07/19 19:06 Dose: 20 mg Furosemide (Lasix) Confirm Administered Dose 40 mg .ROUTE .STK-MED ONE Stop: 05/07/19 19:04 Last Admin: 05/07/19 20:53 Dose: Not Given Furosemide (Lasix) 40 mg IVPUSH BID [facility] [place] Last Admin: 05/08/19 20:34 Dose: 40 mg Furosemide (Lasix) 40 mg IVPUSH BIDDIURETIC [facility] [place] Last Admin: 05/11/19 09:24 Dose: 40 mg Sodium Chloride (Normal Saline) 1,000 mls @ 125 mls/hr IV STAT JACOB Sodium Chloride (Normal Saline) 1,000 mls @ 125 mls/hr IV ASDIRECTED [facility] [place] Sodium Chloride (Normal Saline) 1,000 mls @ 125 mls/hr IV .Bolus ONE Stop: 05/08/19 02:08 Last Admin: 05/07/19 18:25 Dose: 125 mls/hr Magnesium Sulfate 2 gm/ Premix 50 mls @ 25 mls/hr IV ONETIME ONE Stop: 05/10/19 11:47 Last Admin: 05/10/19 10:40 Dose: 25 mls/hr - Exam General: Alert, Oriented, Cooperative, No Acute Distress Lungs: Clear to Auscultation, Normal Respiratory Effort Cardiovascular: Regular Rate, Irregular Rhythm GI/Abdominal Exam: Normal Bowel Sounds, Soft, Non-Tender, No Distention Extremities: Other (trace pitting edema bilaterally.) - Problem List Review Problem List Initiated/Reviewed/Updated: Yes - My Orders Last 24 Hours: My Active Orders 05/11/19 11:45 Consult to Physical Therapy [PT Evaluation and Treatment] [CONS] Routine 05/11/19 11:46 Docusate Sodium [Colace] 100 mg PO BID PRN 05/11/19 12:15 Consult to Physician [CONS] Stat 05/11/19 12:20 Notify Provider Consults [RC] ASDIRECTED 05/11/19 15:06 Echo 2D wo Cont [US] Urgent 05/11/19 19:00 Furosemide [Lasix] 40 mg PO DAILY - Plan Plan:: Assessment: 1. CHF exacerbation. 2. Acute normocytic anemia S/P transfusion of 2 units of PRBC's. 3. CASSIE, improved. 4. Atrial fibrillation, rate controlled, Eliquis currently held. 5. Diabetes mellitus type 2. Plan: 1. For CHF exacerbation, will change to PO lasix 40 mg qd. Will continue daily weights, strict I/O's, low salt diet, fluid restriction. 2. For acute normocytic anemia, patient's hemoglobin is 8.5 this morning. Will continue IV PPI bid. Cardiology was contacted who recommended holding Eliquis for now. Patient reported still having dark stools this morning. He remains hemodynamically stable. Consult for general surgery has been placed, appreciate any recommendations. 3. For diabetes mellitus type 2, SSI. <Mt Jose - Last Filed: 05/12/19 20:25> - Patient Data Vitals - Most Recent: Last Vital Signs Temp 36.6 C 05/12/19 19:10 Pulse 90 05/12/19 19:10 Resp 18 05/12/19 19:10 BP 109/47 L 05/12/19 19:10 Pulse Ox 94 L 05/12/19 19:10 I&O - Last 24 Hours: Intake & Output 05/12/19 05/12/19 05/12/19 06:59 14:59 22:59 Intake Total 620 1090 Output Total 1000 400 Balance -380 690 Lab Results Last 24 Hours: Laboratory Results - last 24 hr 05/12/19 05/12/19 05/12/19 Range/Units 05:35 05:35 07:42 WBC 4.65 (4.0-11.0) K/uL RBC 2.60 L (4.50-5.90) M/uL Hgb 8.2 L (13.0-17.0) g/dL Hct 25.0 L (38.0-50.0) % MCV 96.2 (80.0-98.0) fL MCH 31.5 (27.0-32.0) pg MCHC 32.8 (31.0-37.0) g/dL RDW Std Deviation 55.9 (28.0-62.0) fl RDW Coeff of Theresa 16 H (11.0-15.0) % Plt Count 179 (150-400) K/uL MPV 8.80 (7.40-12.00) fL Neut % (Auto) 63.2 (48.0-80.0) % Lymph % (Auto) 21.9 (16.0-40.0) % [place] % (Auto) 11.0 (0.0-15.0) % Eos % (Auto) 3.7 (0.0-7.0) % Baso % (Auto) 0.2 (0.0-1.5) % Neut # (Auto) 2.9 (1.4-5.7) K/uL Lymph # (Auto) 1.0 (0.6-2.4) K/uL [place] # (Auto) 0.5 (0.0-0.8) K/uL Eos # (Auto) 0.2 (0.0-0.7) K/uL Baso # (Auto) 0.0 (0.0-0.1) K/uL Nucleated RBC % 0.0 /100WBC Nucleated RBCs # 0 K/uL Sodium 140 (136-148) mmol/L Potassium 3.3 L (3.5-5.1) mmol/L Chloride 105 (98-107) mmol/L Carbon Dioxide 31.0 (21.0-32.0) mmol/L BUN 26 H (7.0-18.0) mg/dL Creatinine 1.2 (0.8-1.3) mg/dL Est Cr Clr Drug Dosing 45.92 mL/min Estimated GFR (MDRD) 58.0 ml/min Glucose 168 H (74-106) mg/dL POC Glucose 158 H (60-110) mg/dL Calcium 7.7 L (8.5-10.1) mg/dL 05/12/19 05/12/19 Range/Units 11:52 16:21 WBC (4.0-11.0) K/uL RBC (4.50-5.90) M/uL Hgb (13.0-17.0) g/dL Hct (38.0-50.0) % MCV (80.0-98.0) fL MCH (27.0-32.0) pg MCHC (31.0-37.0) g/dL RDW Std Deviation (28.0-62.0) fl RDW Coeff of Theresa (11.0-15.0) % Plt Count (150-400) K/uL MPV (7.40-12.00) fL Neut % (Auto) (48.0-80.0) % Lymph % (Auto) (16.0-40.0) % [place] % (Auto) (0.0-15.0) % Eos % (Auto) (0.0-7.0) % Baso % (Auto) (0.0-1.5) % Neut # (Auto) (1.4-5.7) K/uL Lymph # (Auto) (0.6-2.4) K/uL [place] # (Auto) (0.0-0.8) K/uL Eos # (Auto) (0.0-0.7) K/uL Baso # (Auto) (0.0-0.1) K/uL Nucleated RBC % /100WBC Nucleated RBCs # K/uL Sodium (136-148) mmol/L Potassium (3.5-5.1) mmol/L Chloride (98-107) mmol/L Carbon Dioxide (21.0-32.0) mmol/L BUN (7.0-18.0) mg/dL Creatinine (0.8-1.3) mg/dL Est Cr Clr Drug Dosing mL/min Estimated GFR (MDRD) ml/min Glucose (74-106) mg/dL POC Glucose 215 H 156 H (60-110) mg/dL Calcium (8.5-10.1) mg/dL Florentino Results Last 24 Hours: Microbiology 05/07/19 18:30 Aerobic Blood Culture - Final Blood - Venous - Lab Draw NO GROWTH AFTER 5 DAYS Anaerobic Blood Culture - Final 05/07/19 18:19 Aerobic Blood Culture - Final Blood - Venous NO GROWTH AFTER 5 DAYS Anaerobic Blood Culture - Final NO GROWTH AFTER 5 DAYS Med Orders - Current: Current Medications Docusate Sodium (Colace) 100 mg PO BID PRN PRN Reason: Constipation Furosemide (Lasix) 40 mg PO DAILY [facility] Last Admin: 05/12/19 09:09 Dose: 40 mg [facility]ulin [facility] Protocol Last Admin: 05/12/19 18:18 Dose: 1 units Metoprolol Tartrate (Lopressor) 100 mg PO BID [facility] [place] Last Admin: 05/12/19 09:09 Dose: 100 mg Multivitamins/Minerals (Prosight) 1 tab PO BID [facility] [place] Last Admin: 05/12/19 09:09 Dose: 1 tab Nystatin (Nystatin Crm) 1 gm TOP BID [facility] [place] Last Admin: 05/12/19 09:10 Dose: 1 gm [facility] Admin: 05/12/19 17:23 Dose: 40 mg Tetrahydrozoline Hcl ([Visine]) 1 each EYERT QID PRN PRN Reason: Dry Eyes Polyethylene Glycol (Miralax) 17 gm PO DAILY PRN PRN Reason: constipation Discontinued Medications Apixaban (Eliquis) 5 mg PO BID [facility] [place] Last Admin: 05/08/19 08:10 Dose: 5 mg Furosemide (Lasix) 20 mg IVPUSH ONETIME ONE Stop: 05/07/19 19:02 Last Admin: 05/07/19 19:06 Dose: 20 mg Furosemide (Lasix) Confirm Administered Dose 40 mg .ROUTE .STK-MED ONE Stop: 05/07/19 19:04 Last Admin: 05/07/19 20:53 Dose: Not Given Furosemide (Lasix) 40 mg IVPUSH BID JACOB Last Admin: 05/08/19 20:34 Dose: 40 mg Furosemide (Lasix) 40 mg IVPUSH BIDDIURETIC JACOB Last Admin: 05/11/19 09:24 Dose: 40 mg Sodium Chloride (Normal Saline) 1,000 mls @ 125 mls/hr IV STAT JACOB Sodium Chloride (Normal Saline) 1,000 mls @ 125 mls/hr IV ASDIRECTED JACOB Sodium Chloride (Normal Saline) 1,000 mls @ 125 mls/hr IV .Bolus ONE Stop: 05/08/19 02:08 Last Admin: 05/07/19 18:25 Dose: 125 mls/hr Pantoprazole Sodium 40 mg/ (Sodium Chloride) 10 mls @ 300 mls/hr IV Q12H JACOB Last Admin: 05/11/19 21:30 Dose: 300 mls/hr Magnesium Sulfate 2 gm/ Premix 50 mls @ 25 mls/hr IV ONETIME ONE Stop: 05/10/19 11:47 Last Admin: 05/10/19 10:40 Dose: 25 mls/hr Potassium Chloride (Klor-Con M20) 40 meq PO ONETIME ONE Stop: 05/12/19 07:24 Last Admin: 05/12/19 08:00 Dose: 40 meq - Problem List & Annotations (1) Congestive heart failure SNOMED Code(s): 28994917 Code(s): I50.9 - HEART FAILURE, UNSPECIFIED Status: Acute Current Visit: Yes (2) Generalized weakness SNOMED Code(s): 13256307 Code(s): R53.1 - WEAKNESS Status: Acute Current Visit: Yes (3) Atrial fibrillation SNOMED Code(s): 14253790 Code(s): I48.91 - UNSPECIFIED ATRIAL FIBRILLATION Status: Acute Current Visit: No (4) Lumbar back pain with radiculopathy affecting right lower extremity SNOMED Code(s): 409301638, 437953066 Code(s): M54.17 - RADICULOPATHY, LUMBOSACRAL REGION Status: Acute Current Visit: No - Plan Plan:: I have seen and evaluated the patient and agree with the residents note unless specified in my note
[2019-05-11] MEDS: Furosemide 40 MG Tab PO SCH (18:37)
[2019-05-12 06:05] LABS: POTASSIUM,K 3.3 mmol/L (3.5-5.1)
[2019-05-12] MEDS ORDERED: Potassium Chloride 20 MEQ Tab.ER PO ONE (07:23)
[2019-05-12] MEDS: Insulin Aspart 100 Units/ML 3 ML Pen SUBCUT SCH ×3 (09:08→18:18)
[2019-05-12] MEDS: Beta-Carotene (Vitamin A) w/Vitamin C & E plus Minerals Tab PO SCH ×2 (09:09→20:59)
[2019-05-12] MEDS: Metoprolol Tartrate 50 MG Tab PO SCH (09:09)
[2019-05-12] MEDS: Furosemide 40 MG Tab PO SCH (09:09)
[2019-05-12] MEDS: Nystatin Crm 30 GM Tube TOP SCH ×2 (09:10→20:59)
[2019-05-12] MEDS ORDERED: Polyethylene Glycol 3350 Powder 17 GM Packet PO PRN (09:28)
--- NOTE | 2019-05-12 09:59 | PCM.SN ---
- Free Text/Narrative Note: Patient is an 83-year-old male with positive fecal occult blood test. He received 2 units of packed red blood cells over the course of his stay. Overnight his vital signs are stable. He had no further melenic stools. This morning his hemoglobin is stable at 8.2 from 8.5. The patient should be transitioned over to pantoprazole 40 mg twice a day. No need for emergent procedures at this point in time. He'll follow-up in the clinic with me in 2 weeks.
--- NOTE | 2019-05-12 10:36 | CR ---
EXAM DATE: 05/10/19 PATIENT'S AGE: 83 Chest: Two views of the chest were obtained. Comparison: Prior chest x-ray of 05/07/19. Blunting of the lateral left costophrenic angle is seen which appears fairly stable from previous chest x-ray. Lungs otherwise are clear. Heart size slightly enlarged. Mild tortuosity of the thoracic aorta is seen. Atherosclerotic calcification is noted within the aorta. Scoliosis and scattered degenerative change is seen within the spine. Impression: 1. Blunting of the lateral left costophrenic angle which is stable from prior chest x-ray. 2. Mild cardiomegaly. Other findings which are believed to be incidental. 3. Nothing acute is otherwise seen. Diagnostic code #2 This report was dictated in [place] Standard Time Report Signed by Proxy. [facility]OS[facility]ITALBrenda
--- NOTE | 2019-05-12 12:21 | PCM.PN ---
<Ethan Ly M - Last Filed: 05/12/19 12:15> - General Info Date of Service: 05/12/19 Subjective Update: Reports mild shortness of breath but much improved overall. No bowel movement in 1 day. Tolerating PO diet well. - Patient Data Vitals - Most Recent: Last Vital Signs Temp 98.2 F 05/12/19 07:57 Pulse 93 05/12/19 09:09 Resp 20 05/12/19 07:57 BP 124/47 L 05/12/19 09:09 Pulse Ox 96 05/12/19 07:57 Weight - Most Recent: 72.665 kg I&O - Last 24 Hours: Intake & Output 05/11/19 05/12/19 05/12/19 22:59 06:59 14:59 Intake Total 850 620 Output Total 775 1000 Balance 75 -380 Lab Results Last 24 Hours: Laboratory Results - last 24 hr 05/11/19 05/12/19 05/12/19 Range/Units 17:04 05:35 05:35 WBC 4.65 (4.0-11.0) K/uL RBC 2.60 L (4.50-5.90) M/uL Hgb 8.2 L (13.0-17.0) g/dL Hct 25.0 L (38.0-50.0) % MCV 96.2 (80.0-98.0) fL MCH 31.5 (27.0-32.0) pg MCHC 32.8 (31.0-37.0) g/dL RDW Std Deviation 55.9 (28.0-62.0) fl RDW Coeff of Theresa 16 H (11.0-15.0) % Plt Count 179 (150-400) K/uL MPV 8.80 (7.40-12.00) fL Neut % (Auto) 63.2 (48.0-80.0) % Lymph % (Auto) 21.9 (16.0-40.0) % Carter % (Auto) 11.0 (0.0-15.0) % Eos % (Auto) 3.7 (0.0-7.0) % Baso % (Auto) 0.2 (0.0-1.5) % Neut # (Auto) 2.9 (1.4-5.7) K/uL Lymph # (Auto) 1.0 (0.6-2.4) K/uL Carter # (Auto) 0.5 (0.0-0.8) K/uL Eos # (Auto) 0.2 (0.0-0.7) K/uL Baso # (Auto) 0.0 (0.0-0.1) K/uL Nucleated RBC % 0.0 /100WBC Nucleated RBCs # 0 K/uL Sodium 140 (136-148) mmol/L Potassium 3.3 L (3.5-5.1) mmol/L Chloride 105 (98-107) mmol/L Carbon Dioxide 31.0 (21.0-32.0) mmol/L BUN 26 H (7.0-18.0) mg/dL Creatinine 1.2 (0.8-1.3) mg/dL Est Cr Clr Drug Dosing 45.92 mL/min Estimated GFR (MDRD) 58.0 ml/min Glucose 168 H (74-106) mg/dL POC Glucose 174 H (60-110) mg/dL Calcium 7.7 L (8.5-10.1) mg/dL 05/12/19 05/12/19 Range/Units 07:42 11:52 WBC (4.0-11.0) K/uL RBC (4.50-5.90) M/uL Hgb (13.0-17.0) g/dL Hct (38.0-50.0) % MCV (80.0-98.0) fL MCH (27.0-32.0) pg MCHC (31.0-37.0) g/dL RDW Std Deviation (28.0-62.0) fl RDW Coeff of Theresa (11.0-15.0) % Plt Count (150-400) K/uL MPV (7.40-12.00) fL Neut % (Auto) (48.0-80.0) % Lymph % (Auto) (16.0-40.0) % Carter % (Auto) (0.0-15.0) % Eos % (Auto) (0.0-7.0) % Baso % (Auto) (0.0-1.5) % Neut # (Auto) (1.4-5.7) K/uL Lymph # (Auto) (0.6-2.4) K/uL Carter # (Auto) (0.0-0.8) K/uL Eos # (Auto) (0.0-0.7) K/uL Baso # (Auto) (0.0-0.1) K/uL Nucleated RBC % /100WBC Nucleated RBCs # K/uL Sodium (136-148) mmol/L Potassium (3.5-5.1) mmol/L Chloride (98-107) mmol/L Carbon Dioxide (21.0-32.0) mmol/L BUN (7.0-18.0) mg/dL Creatinine (0.8-1.3) mg/dL Est Cr Clr Drug Dosing mL/min Estimated GFR (MDRD) ml/min Glucose (74-106) mg/dL POC Glucose 158 H 215 H (60-110) mg/dL Calcium (8.5-10.1) mg/dL Florentino Results Last 24 Hours: Microbiology 05/07/19 18:30 Aerobic Blood Culture - Preliminary Blood - Venous - Lab Draw NO GROWTH AFTER 4 DAYS Anaerobic Blood Culture - Final 05/07/19 18:19 Aerobic Blood Culture - Preliminary Blood - Venous NO GROWTH AFTER 4 DAYS Anaerobic Blood Culture - Preliminary NO GROWTH AFTER 4 DAYS Med Orders - Current: Current Medications Docusate Sodium (Colace) 100 mg PO BID PRN PRN Reason: Constipation Furosemide (Lasix) 40 mg PO DAILY [facility] Last Admin: 05/12/19 09:09 Dose: 40 mg Insulin Aspart (Novolog) 0 unit SUBCUT TIDAC [facility]; Protocol Last Admin: 05/12/19 09:08 Dose: 1 units Metoprolol Tartrate (Lopressor) 100 mg PO BID [facility] Last Admin: 05/12/19 09:09 Dose: 100 mg Multivitamins/Minerals (Prosight) 1 tab PO BID [facility] Last Admin: 05/12/19 09:09 Dose: 1 tab Nystatin (Nystatin Crm) 1 gm TOP BID [facility] Last Admin: 05/12/19 09:10 Dose: 1 gm [facility] Tetrahydrozoline Hcl ([Visine]) 1 each EYERT QID PRN PRN Reason: Dry Eyes Polyethylene Glycol (Miralax) 17 gm PO DAILY PRN PRN Reason: constipation Discontinued Medications Apixaban (Eliquis) 5 mg PO BID [facility] Last Admin: 05/08/19 08:10 Dose: 5 mg Furosemide (Lasix) 20 mg IVPUSH ONETIME ONE Stop: 05/07/19 19:02 Last Admin: 05/07/19 19:06 Dose: 20 mg Furosemide (Lasix) Confirm Administered Dose 40 mg .ROUTE .STK-MED ONE Stop: 05/07/19 19:04 Last Admin: 05/07/19 20:53 Dose: Not Given Furosemide (Lasix) 40 mg IVPUSH BID JACOB Last Admin: 05/08/19 20:34 Dose: 40 mg Furosemide (Lasix) 40 mg IVPUSH BIDDIURETIC AJCOB Last Admin: 05/11/19 09:24 Dose: 40 mg Sodium Chloride (Normal Saline) 1,000 mls @ 125 mls/hr IV STAT JACOB Sodium Chloride (Normal Saline) 1,000 mls @ 125 mls/hr IV ASDIRECTED JACOB Sodium Chloride (Normal Saline) 1,000 mls @ 125 mls/hr IV .Bolus ONE Stop: 05/08/19 02:08 Last Admin: 05/07/19 18:25 Dose: 125 mls/hr Pantoprazole Sodium 40 mg/ (Sodium Chloride) 10 mls @ 300 mls/hr IV Q12H [facility] Last Admin: 05/11/19 21:30 Dose: 300 mls/hr Magnesium Sulfate 2 gm/ Premix 50 mls @ 25 mls/hr IV ONETIME ONE Stop: 05/10/19 11:47 Last Admin: 05/10/19 10:40 Dose: 25 mls/hr Potassium Chloride (Klor-Con M20) 40 meq PO ONETIME ONE Stop: 05/12/19 07:24 Last Admin: 05/12/19 08:00 Dose: 40 meq - Exam General: Alert, Oriented, Cooperative, No Acute Distress Lungs: Clear to Auscultation, Normal Respiratory Effort Cardiovascular: Regular Rate, Irregular Rhythm GI/Abdominal Exam: Normal Bowel Sounds, Soft, Non-Tender, No Distention Extremities: Other (trace pitting edema bilaterally.) - Problem List Review Problem List Initiated/Reviewed/Updated: Yes - My Orders Last 24 Hours: My Active Orders 05/11/19 11:45 Consult to Physical Therapy [PT Evaluation and Treatment] [CONS] Routine 05/11/19 11:46 Docusate Sodium [Colace] 100 mg PO BID PRN 05/11/19 12:15 Consult to Physician [CONS] Stat 05/11/19 12:20 Notify Provider Consults [RC] ASDIRECTED 05/11/19 15:06 Echo 2D wo Cont [US] Urgent 05/11/19 19:00 Furosemide [Lasix] 40 mg PO DAILY - Plan Plan:: Assessment: 1. CHF exacerbation. 2. Acute normocytic anemia S/P transfusion of 2 units of PRBC's, stable. 3. CASSIE, improved. 4. Hypokalemia. 5. Atrial fibrillation, rate controlled, Eliquis currently held. 6. Diabetes mellitus type 2. Plan: 1. For CHF exacerbation, continue PO lasix 40 mg qd. Patient in negative fluid balance. Will continue daily weights, strict I/O's, low salt diet, fluid restriction. Will order repeat CXR. 2. For acute normocytic anemia, patient's hemoglobin is 8.2 this morning and has remained stable. Patient evaluated by general surgery and recommended starting patient on PO PPI and recommended outpatient follow-up in 2 weeks. Will continue to hold Eliquis as per Cardiology recommendation. 3. For hypokalemia, will replete with 40 mEq KCl PO. 4. For diabetes mellitus type 2, SSI. 5. Patient awaiting Osmar disposition. <Mt Jose - Last Filed: 05/13/19 19:58> - Patient Data Vitals - Most Recent: Last Vital Signs Temp 36.8 C 05/13/19 19:10 Pulse 80 05/13/19 19:10 Resp 16 05/13/19 19:10 BP 109/52 L 05/13/19 19:10 Pulse Ox 95 05/13/19 19:10 I&O - Last 24 Hours: Intake & Output 05/13/19 05/13/19 05/13/19 06:59 14:59 22:59 Intake Total 520 540 Output Total 400 740 Balance 120 -200 Lab Results Last 24 Hours: Laboratory Results - last 24 hr 05/13/19 05/13/19 05/13/19 Range/Units 05:20 05:20 06:16 WBC 4.56 (4.0-11.0) K/uL RBC 2.57 L (4.50-5.90) M/uL Hgb 8.0 L (13.0-17.0) g/dL Hct 24.9 L (38.0-50.0) % MCV 96.9 (80.0-98.0) fL MCH 31.1 (27.0-32.0) pg MCHC 32.1 (31.0-37.0) g/dL RDW Std Deviation 55.5 (28.0-62.0) fl RDW Coeff of Theresa 16 H (11.0-15.0) % Plt Count 201 (150-400) K/uL MPV 9.00 (7.40-12.00) fL Neut % (Auto) 60.8 (48.0-80.0) % Lymph % (Auto) 24.1 (16.0-40.0) % Carter % (Auto) 11.8 (0.0-15.0) % Eos % (Auto) 3.1 (0.0-7.0) % Baso % (Auto) 0.2 (0.0-1.5) % Neut # (Auto) 2.8 (1.4-5.7) K/uL Lymph # (Auto) 1.1 (0.6-2.4) K/uL Carter # (Auto) 0.5 (0.0-0.8) K/uL Eos # (Auto) 0.1 (0.0-0.7) K/uL Baso # (Auto) 0.0 (0.0-0.1) K/uL Nucleated RBC % 0.0 /100WBC Nucleated RBCs # 0 K/uL Sodium 142 (136-148) mmol/L Potassium 3.8 (3.5-5.1) mmol/L Chloride 104 (98-107) mmol/L Carbon Dioxide 29.1 (21.0-32.0) mmol/L BUN 21 H (7.0-18.0) mg/dL Creatinine 1.1 (0.8-1.3) mg/dL Est Cr Clr Drug Dosing 50.09 mL/min Estimated GFR (MDRD) > 60.0 ml/min Glucose 178 H (74-106) mg/dL POC Glucose 164 H (60-110) mg/dL Calcium 7.4 L (8.5-10.1) mg/dL Total Bilirubin 0.3 (0.2-1.0) mg/dL AST 21 (15-37) IU/L ALT 25 (14-63) IU/L Alkaline Phosphatase 94 (46-116) U/L Total Protein 5.3 L (6.4-8.2) g/dL Albumin 2.8 L (3.4-5.0) g/dL Globulin 2.5 L (2.6-4.0) g/dL Albumin/Globulin Ratio 1.1 (0.9-1.6) 05/13/19 05/13/19 Range/Units 11:21 16:17 WBC (4.0-11.0) K/uL RBC (4.50-5.90) M/uL Hgb (13.0-17.0) g/dL Hct (38.0-50.0) % MCV (80.0-98.0) fL MCH (27.0-32.0) pg MCHC (31.0-37.0) g/dL RDW Std Deviation (28.0-62.0) fl RDW Coeff of Theresa (11.0-15.0) % Plt Count (150-400) K/uL MPV (7.40-12.00) fL Neut % (Auto) (48.0-80.0) % Lymph % (Auto) (16.0-40.0) % Carter % (Auto) (0.0-15.0) % Eos % (Auto) (0.0-7.0) % Baso % (Auto) (0.0-1.5) % Neut # (Auto) (1.4-5.7) K/uL Lymph # (Auto) (0.6-2.4) K/uL Carter # (Auto) (0.0-0.8) K/uL Eos # (Auto) (0.0-0.7) K/uL Baso # (Auto) (0.0-0.1) K/uL Nucleated RBC % /100WBC Nucleated RBCs # K/uL Sodium (136-148) mmol/L Potassium (3.5-5.1) mmol/L Chloride (98-107) mmol/L Carbon Dioxide (21.0-32.0) mmol/L BUN (7.0-18.0) mg/dL Creatinine (0.8-1.3) mg/dL Est Cr Clr Drug Dosing mL/min Estimated GFR (MDRD) ml/min Glucose (74-106) mg/dL POC Glucose 248 H 157 H (60-110) mg/dL Calcium (8.5-10.1) mg/dL Total Bilirubin (0.2-1.0) mg/dL AST (15-37) IU/L ALT (14-63) IU/L Alkaline Phosphatase (46-116) U/L Total Protein (6.4-8.2) g/dL Albumin (3.4-5.0) g/dL Globulin (2.6-4.0) g/dL Albumin/Globulin Ratio (0.9-1.6) Florentino Results Last 24 Hours: Microbiology 05/07/19 18:30 Aerobic Blood Culture - Final Blood - Venous - Lab Draw NO GROWTH AFTER 5 DAYS Anaerobic Blood Culture - Final 05/07/19 18:19 Aerobic Blood Culture - Final Blood - Venous NO GROWTH AFTER 5 DAYS Anaerobic Blood Culture - Final NO GROWTH AFTER 5 DAYS Med Orders - Current: Current Medications Docusate Sodium (Colace) 100 mg PO BID PRN PRN Reason: Constipation Furosemide (Lasix) 40 mg PO DAILY [facility] Last Admin: 05/13/19 08:09 Dose: 40 mg Insulin Aspart (Novolog) 0 unit SUBCUT TIDAC [facility]; Protocol Last Admin: 05/13/19 17:13 Dose: 1 units Metoprolol Tartrate (Lopressor) 100 mg PO BID [facility] Last Admin: 05/13/19 08:17 Dose: 100 mg Multivitamins/Minerals (Prosight) 1 tab PO BID [facility] Last Admin: 05/13/19 08:09 Dose: 1 tab Nystatin (Nystatin Crm) 1 gm TOP BID [facility] Last Admin: 05/13/19 08:10 Dose: 1 applic Pantoprazole Sodium (Protonix) 40 mg PO BIDAC [facility] Last Admin: 05/13/19 17:12 Dose: 40 mg Tetrahydrozoline Hcl ([Visine]) 1 each EYERT QID PRN PRN Reason: Dry Eyes Polyethylene Glycol (Miralax) 17 gm PO DAILY PRN PRN Reason: constipation Last Admin: 05/13/19 13:50 Dose: 17 gm Discontinued Medications Apixaban (Eliquis) 5 mg PO BID [facility] Last Admin: 05/08/19 08:10 Dose: 5 mg Furosemide (Lasix) 20 mg IVPUSH ONETIME ONE Stop: 05/07/19 19:02 Last Admin: 05/07/19 19:06 Dose: 20 mg Furosemide (Lasix) Confirm Administered Dose 40 mg .ROUTE .STK-MED ONE Stop: 05/07/19 19:04 Last Admin: 05/07/19 20:53 Dose: Not Given Furosemide (Lasix) 40 mg IVPUSH BID JACOB Last Admin: 05/08/19 20:34 Dose: 40 mg Furosemide (Lasix) 40 mg IVPUSH BIDDIURETIC JACOB Last Admin: 05/11/19 09:24 Dose: 40 mg Sodium Chloride (Normal Saline) 1,000 mls @ 125 mls/hr IV STAT JACOB Sodium Chloride (Normal Saline) 1,000 mls @ 125 mls/hr IV ASDIRECTED JACOB Sodium Chloride (Normal Saline) 1,000 mls @ 125 mls/hr IV .Bolus ONE Stop: 05/08/19 02:08 Last Admin: 05/07/19 18:25 Dose: 125 mls/hr Pantoprazole Sodium 40 mg/ (Sodium Chloride) 10 mls @ 300 mls/hr IV Q12H [facility] Last Admin: 05/11/19 21:30 Dose: 300 mls/hr Magnesium Sulfate 2 gm/ Premix 50 mls @ 25 mls/hr IV ONETIME ONE Stop: 05/10/19 11:47 Last Admin: 05/10/19 10:40 Dose: 25 mls/hr Metoprolol Tartrate (Lopressor) 100 mg PO BID [facility] Last Admin: 05/12/19 09:09 Dose: 100 mg Metoprolol Tartrate (Lopressor) 50 mg PO ONETIME ONE Stop: 05/12/19 20:46 Last Admin: 05/12/19 20:59 Dose: 50 mg Potassium Chloride (Klor-Con M20) 40 meq PO ONETIME ONE Stop: 05/12/19 07:24 Last Admin: 05/12/19 08:00 Dose: 40 meq - Problem List & Annotations (1) Congestive heart failure SNOMED Code(s): 78200606 Code(s): I50.9 - HEART FAILURE, UNSPECIFIED Status: Acute Current Visit: Yes (2) Generalized weakness SNOMED Code(s): 53518420 Code(s): R53.1 - WEAKNESS Status: Acute Current Visit: Yes (3) Atrial fibrillation SNOMED Code(s): 86911949 Code(s): I48.91 - UNSPECIFIED ATRIAL FIBRILLATION Status: Acute Current Visit: No (4) Lumbar back pain with radiculopathy affecting right lower extremity SNOMED Code(s): 318487268, 207467441 Code(s): M54.17 - RADICULOPATHY, LUMBOSACRAL REGION Status: Acute Current Visit: No - My Orders Last 24 Hours: My Active Orders 05/13/19 09:00 Metoprolol Tartrate [Lopressor] 100 mg PO BID - Assessment Assessment:: I have seen and evaluated the patient and agree with the residents note unless specified in my note
[2019-05-12] MEDS: Pantoprazole 40 MG Tab.CR PO SCH (17:23)
[2019-05-12] MEDS ORDERED: Metoprolol Tartrate 50 MG Tab PO ONE (20:45)
[2019-05-13 06:02] LABS: BLOOD UREA NITROGEN,BUN 21 mg/dL (7.0-18.0); CARBON DIOXIDE,CO2 29.1 mmol/L (21.0-32.0); CHLORIDE,CL 104 mmol/L (98-107); GLUCOSE RANDOM 178 mg/dL (74-106); POTASSIUM,K 3.8 mmol/L (3.5-5.1); SODIUM,NA 142 mmol/L (136-148)
[2019-05-13] MEDS: Pantoprazole 40 MG Tab.CR PO SCH ×2 (06:44→17:12)
[2019-05-13] MEDS: Insulin Aspart 100 Units/ML 3 ML Pen SUBCUT SCH ×3 (08:05→17:13)
[2019-05-13] MEDS: Furosemide 40 MG Tab PO SCH (08:09)
[2019-05-13] MEDS: Beta-Carotene (Vitamin A) w/Vitamin C & E plus Minerals Tab PO SCH ×2 (08:09→21:21)
[2019-05-13] MEDS: Nystatin Crm 30 GM Tube TOP SCH ×2 (08:10→21:23)
[2019-05-13] MEDS: Metoprolol Tartrate 50 MG Tab PO SCH ×2 (08:17→21:22)
--- NOTE | 2019-05-13 16:51 | PCM.PN ---
<Ethan Ly - Last Filed: 05/13/19 16:46> - General Info Date of Service: 05/13/19 Subjective Update: Patient reports sleeping well overnight, no shortness of breath. He ambulated around hallway and tolerated it well. Tolerating PO diet. No bowel movement. - Patient Data Vitals - Most Recent: Last Vital Signs Temp 97.4 F 05/13/19 11:00 Pulse 62 05/13/19 11:00 Resp 20 05/13/19 11:00 BP 134/61 05/13/19 11:00 Pulse Ox 98 05/13/19 11:00 Weight - Most Recent: 73.1 kg I&O - Last 24 Hours: Intake & Output 05/13/19 05/13/19 05/13/19 06:59 14:59 22:59 Intake Total 520 Output Total 400 Balance 120 Lab Results Last 24 Hours: Laboratory Results - last 24 hr 05/13/19 05/13/19 05/13/19 Range/Units 05:20 05:20 06:16 WBC 4.56 (4.0-11.0) K/uL RBC 2.57 L (4.50-5.90) M/uL Hgb 8.0 L (13.0-17.0) g/dL Hct 24.9 L (38.0-50.0) % MCV 96.9 (80.0-98.0) fL MCH 31.1 (27.0-32.0) pg MCHC 32.1 (31.0-37.0) g/dL RDW Std Deviation 55.5 (28.0-62.0) fl RDW Coeff of Theresa 16 H (11.0-15.0) % Plt Count 201 (150-400) K/uL MPV 9.00 (7.40-12.00) fL Neut % (Auto) 60.8 (48.0-80.0) % Lymph % (Auto) 24.1 (16.0-40.0) % [place] % (Auto) 11.8 (0.0-15.0) % Eos % (Auto) 3.1 (0.0-7.0) % Baso % (Auto) 0.2 (0.0-1.5) % Neut # (Auto) 2.8 (1.4-5.7) K/uL Lymph # (Auto) 1.1 (0.6-2.4) K/uL [place] # (Auto) 0.5 (0.0-0.8) K/uL Eos # (Auto) 0.1 (0.0-0.7) K/uL Baso # (Auto) 0.0 (0.0-0.1) K/uL Nucleated RBC % 0.0 /100WBC Nucleated RBCs # 0 K/uL Sodium 142 (136-148) mmol/L Potassium 3.8 (3.5-5.1) mmol/L Chloride 104 (98-107) mmol/L Carbon Dioxide 29.1 (21.0-32.0) mmol/L BUN 21 H (7.0-18.0) mg/dL Creatinine 1.1 (0.8-1.3) mg/dL Est Cr Clr Drug Dosing 50.09 mL/min Estimated GFR (MDRD) > 60.0 ml/min Glucose 178 H (74-106) mg/dL POC Glucose 164 H (60-110) mg/dL Calcium 7.4 L (8.5-10.1) mg/dL Total Bilirubin 0.3 (0.2-1.0) mg/dL AST 21 (15-37) IU/L ALT 25 (14-63) IU/L Alkaline Phosphatase 94 (46-116) U/L Total Protein 5.3 L (6.4-8.2) g/dL Albumin 2.8 L (3.4-5.0) g/dL Globulin 2.5 L (2.6-4.0) g/dL Albumin/Globulin Ratio 1.1 (0.9-1.6) 05/13/19 05/13/19 Range/Units 11:21 16:17 WBC (4.0-11.0) K/uL RBC (4.50-5.90) M/uL Hgb (13.0-17.0) g/dL Hct (38.0-50.0) % MCV (80.0-98.0) fL MCH (27.0-32.0) pg MCHC (31.0-37.0) g/dL RDW Std Deviation (28.0-62.0) fl RDW Coeff of Theresa (11.0-15.0) % Plt Count (150-400) K/uL MPV (7.40-12.00) fL Neut % (Auto) (48.0-80.0) % Lymph % (Auto) (16.0-40.0) % [place] % (Auto) (0.0-15.0) % Eos % (Auto) (0.0-7.0) % Baso % (Auto) (0.0-1.5) % Neut # (Auto) (1.4-5.7) K/uL Lymph # (Auto) (0.6-2.4) K/uL [place] # (Auto) (0.0-0.8) K/uL Eos # (Auto) (0.0-0.7) K/uL Baso # (Auto) (0.0-0.1) K/uL Nucleated RBC % /100WBC Nucleated RBCs # K/uL Sodium (136-148) mmol/L Potassium (3.5-5.1) mmol/L Chloride (98-107) mmol/L Carbon Dioxide (21.0-32.0) mmol/L BUN (7.0-18.0) mg/dL Creatinine (0.8-1.3) mg/dL Est Cr Clr Drug Dosing mL/min Estimated GFR (MDRD) ml/min Glucose (74-106) mg/dL POC Glucose 248 H 157 H (60-110) mg/dL Calcium (8.5-10.1) mg/dL Total Bilirubin (0.2-1.0) mg/dL AST (15-37) IU/L ALT (14-63) IU/L Alkaline Phosphatase (46-116) U/L Total Protein (6.4-8.2) g/dL Albumin (3.4-5.0) g/dL Globulin (2.6-4.0) g/dL Albumin/Globulin Ratio (0.9-1.6) Florentino Results Last 24 Hours: Microbiology 05/07/19 18:30 Aerobic Blood Culture - Final Blood - Venous - Lab Draw NO GROWTH AFTER 5 DAYS Anaerobic Blood Culture - Final 05/07/19 18:19 Aerobic Blood Culture - Final Blood - Venous NO GROWTH AFTER 5 DAYS Anaerobic Blood Culture - Final NO GROWTH AFTER 5 DAYS Med Orders - Current: Current Medications Docusate Sodium (Colace) 100 mg PO BID PRN PRN Reason: Constipation Furosemide (Lasix) 40 mg PO DAILY [facility] Last Admin: 05/13/19 08:09 Dose: 40 mg Insulin Aspart (Novolog) 0 unit SUBCUT TIDAC [facility]; Protocol Last Admin: 05/13/19 11:25 Dose: 2 units Metoprolol Tartrate (Lopressor) 100 mg PO BID [facility] Last Admin: 05/13/19 08:17 Dose: 100 mg Multivitamins/Minerals (Prosight) 1 tab PO BID [facility] Last Admin: 05/13/19 08:09 Dose: 1 tab Nystatin (Nystatin Crm) 1 gm TOP BID [facility] Last Admin: 05/13/19 08:10 Dose: 1 applic Pantoprazole Sodium (Protonix) 40 mg PO BIDAC [facility] Last Admin: 05/13/19 06:44 Dose: 40 mg Tetrahydrozoline Hcl ([Visine]) 1 each EYERT QID PRN PRN Reason: Dry Eyes Polyethylene Glycol (Miralax) 17 gm PO DAILY PRN PRN Reason: constipation Last Admin: 05/13/19 13:50 Dose: 17 gm Discontinued Medications Apixaban (Eliquis) 5 mg PO BID [facility] Last Admin: 05/08/19 08:10 Dose: 5 mg Furosemide (Lasix) 20 mg IVPUSH ONETIME ONE Stop: 05/07/19 19:02 Last Admin: 05/07/19 19:06 Dose: 20 mg Furosemide (Lasix) Confirm Administered Dose 40 mg .ROUTE .STK-MED ONE Stop: 05/07/19 19:04 Last Admin: 05/07/19 20:53 Dose: Not Given Furosemide (Lasix) 40 mg IVPUSH BID [facility] Last Admin: 05/08/19 20:34 Dose: 40 mg Furosemide (Lasix) 40 mg IVPUSH BIDDIURETIC [facility] Last Admin: 05/11/19 09:24 Dose: 40 mg Sodium Chloride (Normal Saline) 1,000 mls @ 125 mls/hr IV STAT JACOB Sodium Chloride (Normal Saline) 1,000 mls @ 125 mls/hr IV ASDIRECTED [facility] Sodium Chloride (Normal Saline) 1,000 mls @ 125 mls/hr IV .Bolus ONE Stop: 05/08/19 02:08 Last Admin: 05/07/19 18:25 Dose: 125 mls/hr Pantoprazole Sodium 40 mg/ (Sodium Chloride) 10 mls @ 300 mls/hr IV Q12H [facility] Last Admin: 05/11/19 21:30 Dose: 300 mls/hr Magnesium Sulfate 2 gm/ Premix 50 mls @ 25 mls/hr IV ONETIME ONE Stop: 05/10/19 11:47 Last Admin: 05/10/19 10:40 Dose: 25 mls/hr Metoprolol Tartrate (Lopressor) 100 mg PO BID [facility] Last Admin: 05/12/19 09:09 Dose: 100 mg Metoprolol Tartrate (Lopressor) 50 mg PO ONETIME ONE Stop: 05/12/19 20:46 Last Admin: 05/12/19 20:59 Dose: 50 mg Potassium Chloride (Klor-Con M20) 40 meq PO ONETIME ONE Stop: 05/12/19 07:24 Last Admin: 05/12/19 08:00 Dose: 40 meq - Exam General: Alert, Oriented, Cooperative, No Acute Distress Lungs: Clear to Auscultation, Normal Respiratory Effort Cardiovascular: Regular Rate, Irregular Rhythm Extremities: Other (trace pitting edema bilaterally.) - Problem List Review Problem List Initiated/Reviewed/Updated: Yes - Plan Plan:: Assessment: 1. CHF exacerbation. 2. Acute normocytic anemia s/p transfusion of 2 units PRBC's, stable. 3. CASSIE, improved. 4. Atrial fibrillation, rate controlled, Eliquis held secondary to #2. 5. Diabetes mellitus type 2. Plan: 1. For CHF, patient on 40 mg lasix PO. Remains in negative fluid balance. Repeat CXR showed stable left pleural effusion. Continue fluid and salt restriction and daily weights. 2. For acute normocytic anemia, hemoglobin remains stable and is 8.0 today. As per general surgery, follow-up recommended in 2 weeks. Continue PO PPI. Eliquis currently held as per cardiology. 3. Patient awaiting transfer to [facility]. <Mt Jose - Last Filed: 05/13/19 20:12> - Patient Data Vitals - Most Recent: Last Vital Signs Temp 36.8 C 05/13/19 19:10 Pulse 80 05/13/19 19:10 Resp 16 05/13/19 19:10 BP 109/52 L 05/13/19 19:10 Pulse Ox 95 05/13/19 19:10 I&O - Last 24 Hours: Intake & Output 05/13/19 05/13/19 05/13/19 06:59 14:59 22:59 Intake Total 520 540 Output Total 400 740 Balance 120 -200 Lab Results Last 24 Hours: Laboratory Results - last 24 hr 05/13/19 05/13/19 05/13/19 Range/Units 05:20 05:20 06:16 WBC 4.56 (4.0-11.0) K/uL RBC 2.57 L (4.50-5.90) M/uL Hgb 8.0 L (13.0-17.0) g/dL Hct 24.9 L (38.0-50.0) % MCV 96.9 (80.0-98.0) fL MCH 31.1 (27.0-32.0) pg MCHC 32.1 (31.0-37.0) g/dL RDW Std Deviation 55.5 (28.0-62.0) fl RDW Coeff of Theresa 16 H (11.0-15.0) % Plt Count 201 (150-400) K/uL MPV 9.00 (7.40-12.00) fL Neut % (Auto) 60.8 (48.0-80.0) % Lymph % (Auto) 24.1 (16.0-40.0) % [place] % (Auto) 11.8 (0.0-15.0) % Eos % (Auto) 3.1 (0.0-7.0) % Baso % (Auto) 0.2 (0.0-1.5) % Neut # (Auto) 2.8 (1.4-5.7) K/uL Lymph # (Auto) 1.1 (0.6-2.4) K/uL [place] # (Auto) 0.5 (0.0-0.8) K/uL Eos # (Auto) 0.1 (0.0-0.7) K/uL Baso # (Auto) 0.0 (0.0-0.1) K/uL Nucleated RBC % 0.0 /100WBC Nucleated RBCs # 0 K/uL Sodium 142 (136-148) mmol/L Potassium 3.8 (3.5-5.1) mmol/L Chloride 104 (98-107) mmol/L Carbon Dioxide 29.1 (21.0-32.0) mmol/L BUN 21 H (7.0-18.0) mg/dL Creatinine 1.1 (0.8-1.3) mg/dL Est Cr Clr Drug Dosing 50.09 mL/min Estimated GFR (MDRD) > 60.0 ml/min Glucose 178 H (74-106) mg/dL POC Glucose 164 H (60-110) mg/dL Calcium 7.4 L (8.5-10.1) mg/dL Total Bilirubin 0.3 (0.2-1.0) mg/dL AST 21 (15-37) IU/L ALT 25 (14-63) IU/L Alkaline Phosphatase 94 (46-116) U/L Total Protein 5.3 L (6.4-8.2) g/dL Albumin 2.8 L (3.4-5.0) g/dL Globulin 2.5 L (2.6-4.0) g/dL Albumin/Globulin Ratio 1.1 (0.9-1.6) 05/13/19 05/13/19 Range/Units 11:21 16:17 WBC (4.0-11.0) K/uL RBC (4.50-5.90) M/uL Hgb (13.0-17.0) g/dL Hct (38.0-50.0) % MCV (80.0-98.0) fL MCH (27.0-32.0) pg MCHC (31.0-37.0) g/dL RDW Std Deviation (28.0-62.0) fl RDW Coeff of Theresa (11.0-15.0) % Plt Count (150-400) K/uL MPV (7.40-12.00) fL Neut % (Auto) (48.0-80.0) % Lymph % (Auto) (16.0-40.0) % [place] % (Auto) (0.0-15.0) % Eos % (Auto) (0.0-7.0) % Baso % (Auto) (0.0-1.5) % Neut # (Auto) (1.4-5.7) K/uL Lymph # (Auto) (0.6-2.4) K/uL [place] # (Auto) (0.0-0.8) K/uL Eos # (Auto) (0.0-0.7) K/uL Baso # (Auto) (0.0-0.1) K/uL Nucleated RBC % /100WBC Nucleated RBCs # K/uL Sodium (136-148) mmol/L Potassium (3.5-5.1) mmol/L Chloride (98-107) mmol/L Carbon Dioxide (21.0-32.0) mmol/L BUN (7.0-18.0) mg/dL Creatinine (0.8-1.3) mg/dL Est Cr Clr Drug Dosing mL/min Estimated GFR (MDRD) ml/min Glucose (74-106) mg/dL POC Glucose 248 H 157 H (60-110) mg/dL Calcium (8.5-10.1) mg/dL Total Bilirubin (0.2-1.0) mg/dL AST (15-37) IU/L ALT (14-63) IU/L Alkaline Phosphatase (46-116) U/L Total Protein (6.4-8.2) g/dL Albumin (3.4-5.0) g/dL Globulin (2.6-4.0) g/dL Albumin/Globulin Ratio (0.9-1.6) Florentino Results Last 24 Hours: Microbiology 05/07/19 18:30 Aerobic Blood Culture - Final Blood - Venous - Lab Draw NO GROWTH AFTER 5 DAYS Anaerobic Blood Culture - Final 05/07/19 18:19 Aerobic Blood Culture - Final Blood - Venous NO GROWTH AFTER 5 DAYS Anaerobic Blood Culture - Final NO GROWTH AFTER 5 DAYS Med Orders - Current: Current Medications Docusate Sodium (Colace) 100 mg PO BID PRN PRN Reason: Constipation Furosemide (Lasix) 40 mg PO DAILY [facility] Last Admin: 05/13/19 08:09 Dose: 40 mg Insulin Aspart (Novolog) 0 unit SUBCUT TIDAC [facility]; Protocol Last Admin: 05/13/19 17:13 Dose: 1 units Metoprolol Tartrate (Lopressor) 100 mg PO BID [facility] Last Admin: 05/13/19 08:17 Dose: 100 mg Multivitamins/Minerals (Prosight) 1 tab PO BID [facility] Last Admin: 05/13/19 08:09 Dose: 1 tab Nystatin (Nystatin Crm) 1 gm TOP BID [facility] Last Admin: 05/13/19 08:10 Dose: 1 applic Pantoprazole Sodium (Protonix) 40 mg PO BIDAC [facility] Last Admin: 05/13/19 17:12 Dose: 40 mg Tetrahydrozoline Hcl ([Visine]) 1 each EYERT QID PRN PRN Reason: Dry Eyes Polyethylene Glycol (Miralax) 17 gm PO DAILY PRN PRN Reason: constipation Last Admin: 05/13/19 13:50 Dose: 17 gm Discontinued Medications Apixaban (Eliquis) 5 mg PO BID [facility] Last Admin: 05/08/19 08:10 Dose: 5 mg Furosemide (Lasix) 20 mg IVPUSH ONETIME ONE Stop: 05/07/19 19:02 Last Admin: 05/07/19 19:06 Dose: 20 mg Furosemide (Lasix) Confirm Administered Dose 40 mg .ROUTE .STK-MED ONE Stop: 05/07/19 19:04 Last Admin: 05/07/19 20:53 Dose: Not Given Furosemide (Lasix) 40 mg IVPUSH BID [facility] Last Admin: 05/08/19 20:34 Dose: 40 mg Furosemide (Lasix) 40 mg IVPUSH BIDDIURETIC [facility] Last Admin: 05/11/19 09:24 Dose: 40 mg Sodium Chloride (Normal Saline) 1,000 mls @ 125 mls/hr IV STAT [facility] Sodium Chloride (Normal Saline) 1,000 mls @ 125 mls/hr IV ASDIRECTED [facility] Sodium Chloride (Normal Saline) 1,000 mls @ 125 mls/hr IV .Bolus ONE Stop: 05/08/19 02:08 Last Admin: 05/07/19 18:25 Dose: 125 mls/hr Pantoprazole Sodium 40 mg/ (Sodium Chloride) 10 mls @ 300 mls/hr IV Q12H [facility] Last Admin: 05/11/19 21:30 Dose: 300 mls/hr Magnesium Sulfate 2 gm/ Premix 50 mls @ 25 mls/hr IV ONETIME ONE Stop: 05/10/19 11:47 Last Admin: 05/10/19 10:40 Dose: 25 mls/hr Metoprolol Tartrate (Lopressor) 100 mg PO BID [facility] Last Admin: 05/12/19 09:09 Dose: 100 mg Metoprolol Tartrate (Lopressor) 50 mg PO ONETIME ONE Stop: 05/12/19 20:46 Last Admin: 05/12/19 20:59 Dose: 50 mg Potassium Chloride (Klor-Con M20) 40 meq PO ONETIME ONE Stop: 05/12/19 07:24 Last Admin: 05/12/19 08:00 Dose: 40 meq - Problem List & Annotations (1) Congestive heart failure SNOMED Code(s): 35918797 Code(s): I50.9 - HEART FAILURE, UNSPECIFIED Status: Acute Current Visit: Yes (2) Generalized weakness SNOMED Code(s): 08427258 Code(s): R53.1 - WEAKNESS Status: Acute Current Visit: Yes (3) Atrial fibrillation SNOMED Code(s): 44841181 Code(s): I48.91 - UNSPECIFIED ATRIAL FIBRILLATION Status: Acute Current Visit: No (4) Lumbar back pain with radiculopathy affecting right lower extremity SNOMED Code(s): 245010503, 753007503 Code(s): M54.17 - RADICULOPATHY, LUMBOSACRAL REGION Status: Acute Current Visit: No - My Orders Last 24 Hours: My Active Orders 05/13/19 09:00 Metoprolol Tartrate [Lopressor] 100 mg PO BID - Plan Plan:: I have seen and evaluated the patient and agree with the residents note unless specified in my note
[2019-05-14 05:55] LABS: BLOOD UREA NITROGEN,BUN 18 mg/dL (7.0-18.0); CARBON DIOXIDE,CO2 28.3 mmol/L (21.0-32.0); CHLORIDE,CL 104 mmol/L (98-107); GLUCOSE RANDOM 232 mg/dL (74-106); POTASSIUM,K 4.1 mmol/L (3.5-5.1); SODIUM,NA 140 mmol/L (136-148)
[2019-05-14] MEDS: Pantoprazole 40 MG Tab.CR PO SCH ×2 (06:44→16:34)
[2019-05-14] MEDS: Insulin Aspart 100 Units/ML 3 ML Pen SUBCUT SCH ×3 (06:45→18:44)
[2019-05-14] MEDS: Furosemide 40 MG Tab PO SCH (10:18)
[2019-05-14] MEDS: Beta-Carotene (Vitamin A) w/Vitamin C & E plus Minerals Tab PO SCH ×2 (10:18→20:17)
[2019-05-14] MEDS: Nystatin Crm 30 GM Tube TOP SCH ×2 (10:20→20:17)
[2019-05-14] MEDS: Metoprolol Tartrate 50 MG Tab PO SCH ×2 (10:20→20:17)
--- NOTE | 2019-05-14 11:41 | PCM.PN ---
<Ethan Ly - Last Filed: 05/14/19 11:37> - General Info Date of Service: 05/14/19 Subjective Update: Having bowel movements, tolerating PO diet and has been ambulating. - Patient Data Vitals - Most Recent: Last Vital Signs Temp 98.2 F 05/14/19 07:30 Pulse 94 05/14/19 10:20 Resp 14 05/14/19 07:30 BP 140/64 05/14/19 10:20 Pulse Ox 98 05/14/19 07:30 Weight - Most Recent: 72.348 kg I&O - Last 24 Hours: Intake & Output 05/13/19 05/14/19 05/14/19 22:59 06:59 14:59 Intake Total 540 440 Output Total 740 450 Balance -200 -10 Lab Results Last 24 Hours: Laboratory Results - last 24 hr 05/13/19 05/14/19 05/14/19 Range/Units 16:17 04:58 04:58 WBC 4.04 (4.0-11.0) K/uL RBC 2.54 L (4.50-5.90) M/uL Hgb 7.9 L (13.0-17.0) g/dL Hct 25.0 L (38.0-50.0) % MCV 98.4 H (80.0-98.0) fL MCH 31.1 (27.0-32.0) pg MCHC 31.6 (31.0-37.0) g/dL RDW Std Deviation 56.2 (28.0-62.0) fl RDW Coeff of Theresa 16 H (11.0-15.0) % Plt Count 224 (150-400) K/uL MPV 8.90 (7.40-12.00) fL Neut % (Auto) 64.2 (48.0-80.0) % Lymph % (Auto) 21.0 (16.0-40.0) % Walsh % (Auto) 11.1 (0.0-15.0) % Eos % (Auto) 3.5 (0.0-7.0) % Baso % (Auto) 0.2 (0.0-1.5) % Neut # (Auto) 2.6 (1.4-5.7) K/uL Lymph # (Auto) 0.9 (0.6-2.4) K/uL Walsh # (Auto) 0.5 (0.0-0.8) K/uL Eos # (Auto) 0.1 (0.0-0.7) K/uL Baso # (Auto) 0.0 (0.0-0.1) K/uL Nucleated RBC % 0.0 /100WBC Nucleated RBCs # 0 K/uL Sodium 140 (136-148) mmol/L Potassium 4.1 (3.5-5.1) mmol/L Chloride 104 (98-107) mmol/L Carbon Dioxide 28.3 (21.0-32.0) mmol/L BUN 18 (7.0-18.0) mg/dL Creatinine 1.1 (0.8-1.3) mg/dL Est Cr Clr Drug Dosing 50.09 mL/min Estimated GFR (MDRD) > 60.0 ml/min Glucose 232 H (74-106) mg/dL POC Glucose 157 H (60-110) mg/dL Calcium 7.8 L (8.5-10.1) mg/dL Blood Type Antibody Screen Crossmatch 05/14/19 05/14/19 05/14/19 Range/Units 06:06 09:40 11:29 WBC (4.0-11.0) K/uL RBC (4.50-5.90) M/uL Hgb (13.0-17.0) g/dL Hct (38.0-50.0) % MCV (80.0-98.0) fL MCH (27.0-32.0) pg MCHC (31.0-37.0) g/dL RDW Std Deviation (28.0-62.0) fl RDW Coeff of Theresa (11.0-15.0) % Plt Count (150-400) K/uL MPV (7.40-12.00) fL Neut % (Auto) (48.0-80.0) % Lymph % (Auto) (16.0-40.0) % Walsh % (Auto) (0.0-15.0) % Eos % (Auto) (0.0-7.0) % Baso % (Auto) (0.0-1.5) % Neut # (Auto) (1.4-5.7) K/uL Lymph # (Auto) (0.6-2.4) K/uL Walsh # (Auto) (0.0-0.8) K/uL Eos # (Auto) (0.0-0.7) K/uL Baso # (Auto) (0.0-0.1) K/uL Nucleated RBC % /100WBC Nucleated RBCs # K/uL Sodium (136-148) mmol/L Potassium (3.5-5.1) mmol/L Chloride (98-107) mmol/L Carbon Dioxide (21.0-32.0) mmol/L BUN (7.0-18.0) mg/dL Creatinine (0.8-1.3) mg/dL Est Cr Clr Drug Dosing mL/min Estimated GFR (MDRD) ml/min Glucose (74-106) mg/dL POC Glucose 220 H 213 H (60-110) mg/dL Calcium (8.5-10.1) mg/dL Blood Type A POSITIVE Antibody Screen NEGATIVE Crossmatch See Detail Med Orders - Current: Current Medications Docusate Sodium (Colace) 100 mg PO BID PRN PRN Reason: Constipation Furosemide (Lasix) 40 mg PO DAILY [facility] Last Admin: 05/14/19 10:18 Dose: 40 mg Insulin Aspart (Novolog) 0 unit SUBCUT TIDAC [facility]; Protocol Last Admin: 05/14/19 06:45 Dose: 2 units Metoprolol Tartrate (Lopressor) 100 mg PO BID [facility] Last Admin: 05/14/19 10:20 Dose: 100 mg Multivitamins/Minerals (Prosight) 1 tab PO BID [facility] Last Admin: 05/14/19 10:18 Dose: 1 tab Nystatin (Nystatin Crm) 1 gm TOP BID [facility] Last Admin: 05/14/19 10:20 Dose: Not Given Pantoprazole Sodium (Protonix) 40 mg PO BIDAC [facility] Last Admin: 05/14/19 06:44 Dose: 40 mg Tetrahydrozoline Hcl ([Visine]) 1 each EYERT QID PRN PRN Reason: Dry Eyes Polyethylene Glycol (Miralax) 17 gm PO DAILY PRN PRN Reason: constipation Last Admin: 05/13/19 13:50 Dose: 17 gm Discontinued Medications Apixaban (Eliquis) 5 mg PO BID [facility] Last Admin: 05/08/19 08:10 Dose: 5 mg Furosemide (Lasix) 20 mg IVPUSH ONETIME ONE Stop: 05/07/19 19:02 Last Admin: 05/07/19 19:06 Dose: 20 mg Furosemide (Lasix) Confirm Administered Dose 40 mg .ROUTE .STK-MED ONE Stop: 05/07/19 19:04 Last Admin: 05/07/19 20:53 Dose: Not Given Furosemide (Lasix) 40 mg IVPUSH BID JACOB Last Admin: 05/08/19 20:34 Dose: 40 mg Furosemide (Lasix) 40 mg IVPUSH BIDDIURETIC [facility] Last Admin: 05/11/19 09:24 Dose: 40 mg Sodium Chloride (Normal Saline) 1,000 mls @ 125 mls/hr IV STAT JACOB Sodium Chloride (Normal Saline) 1,000 mls @ 125 mls/hr IV ASDIRECTED [facility] Sodium Chloride (Normal Saline) 1,000 mls @ 125 mls/hr IV .Bolus ONE Stop: 05/08/19 02:08 Last Admin: 05/07/19 18:25 Dose: 125 mls/hr Pantoprazole Sodium 40 mg/ (Sodium Chloride) 10 mls @ 300 mls/hr IV Q12H [facility] Last Admin: 05/11/19 21:30 Dose: 300 mls/hr Magnesium Sulfate 2 gm/ Premix 50 mls @ 25 mls/hr IV ONETIME ONE Stop: 05/10/19 11:47 Last Admin: 05/10/19 10:40 Dose: 25 mls/hr Metoprolol Tartrate (Lopressor) 100 mg PO BID [facility] Last Admin: 05/12/19 09:09 Dose: 100 mg Metoprolol Tartrate (Lopressor) 50 mg PO ONETIME ONE Stop: 05/12/19 20:46 Last Admin: 05/12/19 20:59 Dose: 50 mg Potassium Chloride (Klor-Con M20) 40 meq PO ONETIME ONE Stop: 05/12/19 07:24 Last Admin: 05/12/19 08:00 Dose: 40 meq - Exam General: Alert, Oriented, Cooperative, No Acute Distress Lungs: Clear to Auscultation, Normal Respiratory Effort Cardiovascular: Regular Rate, Irregular Rhythm Extremities: Other (trace pitting edema bilaterally) - Problem List Review Problem List Initiated/Reviewed/Updated: Yes - Plan Plan:: Assessment: 1. Acute normocytic anemia s/p transfusion 2 units PRBC's. 2. CHF exacerbation, improved. 3. CASSIE, improving. 4. Atrial fibrillation, rate controlled, Eliquis held secondary to #1. 5. Diabetes mellitus type 2. Plan: 1. For acute normocytic anemia, patient's hemoglobin has been slowly decreasing. It is 7.9 today down from 8.0 today. Will transfuse 1 unit today. Will contact general surgery for reassessment and further recommendations. 2. For CHF, continue PO lasix, fluid restriction and low salt diet. 3. Patient currently awaiting [facility] disposition. <Mt Jose - Last Filed: 05/16/19 13:13> - Patient Data Vitals - Most Recent: Last Vital Signs Temp 36.4 C 05/16/19 11:00 Pulse 98 05/16/19 11:00 Resp 18 05/16/19 11:00 BP 135/58 L 05/16/19 11:00 Pulse Ox 99 05/16/19 11:00 I&O - Last 24 Hours: Intake & Output 05/15/19 05/16/19 05/16/19 22:59 06:59 14:59 Intake Total 500 360 Output Total 1250 Balance -750 360 Lab Results Last 24 Hours: Laboratory Results - last 24 hr 05/15/19 05/16/19 05/16/19 Range/Units 16:40 06:00 06:00 WBC 4.44 (4.0-11.0) K/uL RBC 2.84 L (4.50-5.90) M/uL Hgb 8.8 L (13.0-17.0) g/dL Hct 27.0 L (38.0-50.0) % MCV 95.1 (80.0-98.0) fL MCH 31.0 (27.0-32.0) pg MCHC 32.6 (31.0-37.0) g/dL RDW Std Deviation 52.6 (28.0-62.0) fl RDW Coeff of Theresa 15 (11.0-15.0) % Plt Count 211 (150-400) K/uL MPV 8.80 (7.40-12.00) fL Neut % (Auto) 59.2 (48.0-80.0) % Lymph % (Auto) 25.9 (16.0-40.0) % Walsh % (Auto) 11.5 (0.0-15.0) % Eos % (Auto) 3.2 (0.0-7.0) % Baso % (Auto) 0.2 (0.0-1.5) % Neut # (Auto) 2.6 (1.4-5.7) K/uL Lymph # (Auto) 1.2 (0.6-2.4) K/uL Walsh # (Auto) 0.5 (0.0-0.8) K/uL Eos # (Auto) 0.1 (0.0-0.7) K/uL Baso # (Auto) 0.0 (0.0-0.1) K/uL Nucleated RBC % 0.0 /100WBC Nucleated RBCs # 0 K/uL Sodium 140 (136-148) mmol/L Potassium 4.5 (3.5-5.1) mmol/L Chloride 105 (98-107) mmol/L Carbon Dioxide 30.1 (21.0-32.0) mmol/L BUN 14 (7.0-18.0) mg/dL Creatinine 1.0 (0.8-1.3) mg/dL Est Cr Clr Drug Dosing 55.10 mL/min Estimated GFR (MDRD) > 60.0 ml/min Glucose 163 H (74-106) mg/dL POC Glucose 164 H (60-110) mg/dL Calcium 7.7 L (8.5-10.1) mg/dL Total Bilirubin 0.3 (0.2-1.0) mg/dL AST 15 (15-37) IU/L ALT 29 (14-63) IU/L Alkaline Phosphatase 90 (46-116) U/L Total Protein 5.3 L (6.4-8.2) g/dL Albumin 2.6 L (3.4-5.0) g/dL Globulin 2.7 (2.6-4.0) g/dL Albumin/Globulin Ratio 1.0 (0.9-1.6) 05/16/19 05/16/19 Range/Units 07:04 11:37 WBC (4.0-11.0) K/uL RBC (4.50-5.90) M/uL Hgb (13.0-17.0) g/dL Hct (38.0-50.0) % MCV (80.0-98.0) fL MCH (27.0-32.0) pg MCHC (31.0-37.0) g/dL RDW Std Deviation (28.0-62.0) fl RDW Coeff of Theresa (11.0-15.0) % Plt Count (150-400) K/uL MPV (7.40-12.00) fL Neut % (Auto) (48.0-80.0) % Lymph % (Auto) (16.0-40.0) % Walsh % (Auto) (0.0-15.0) % Eos % (Auto) (0.0-7.0) % Baso % (Auto) (0.0-1.5) % Neut # (Auto) (1.4-5.7) K/uL Lymph # (Auto) (0.6-2.4) K/uL Walsh # (Auto) (0.0-0.8) K/uL Eos # (Auto) (0.0-0.7) K/uL Baso # (Auto) (0.0-0.1) K/uL Nucleated RBC % /100WBC Nucleated RBCs # K/uL Sodium (136-148) mmol/L Potassium (3.5-5.1) mmol/L Chloride (98-107) mmol/L Carbon Dioxide (21.0-32.0) mmol/L BUN (7.0-18.0) mg/dL Creatinine (0.8-1.3) mg/dL Est Cr Clr Drug Dosing mL/min Estimated GFR (MDRD) ml/min Glucose (74-106) mg/dL POC Glucose 154 H 230 H (60-110) mg/dL Calcium (8.5-10.1) mg/dL Total Bilirubin (0.2-1.0) mg/dL AST (15-37) IU/L ALT (14-63) IU/L Alkaline Phosphatase (46-116) U/L Total Protein (6.4-8.2) g/dL Albumin (3.4-5.0) g/dL Globulin (2.6-4.0) g/dL Albumin/Globulin Ratio (0.9-1.6) Med Orders - Current: Current Medications Docusate Sodium (Colace) 100 mg PO BID PRN PRN Reason: Constipation Furosemide (Lasix) 40 mg PO DAILY [facility] Last Admin: 05/16/19 09:00 Dose: 40 mg Insulin Aspart (Novolog) 0 unit SUBCUT TIDAC [facility]; Protocol Last Admin: 05/16/19 11:51 Dose: 2 units Metoprolol Tartrate (Lopressor) 100 mg PO BID [facility] Last Admin: 05/16/19 09:00 Dose: 100 mg Multivitamins/Minerals (Prosight) 1 tab PO BID [facility] Last Admin: 05/16/19 09:00 Dose: 1 tab Nystatin (Nystatin Crm) 1 gm TOP BID [facility] Last Admin: 05/16/19 09:00 Dose: Not Given Pantoprazole Sodium (Protonix) 40 mg PO BIDAC [facility] Last Admin: 05/16/19 07:02 Dose: 40 mg Tetrahydrozoline Hcl ([Visine]) 1 each EYERT QID PRN PRN Reason: Dry Eyes Polyethylene Glycol (Miralax) 17 gm PO DAILY PRN PRN Reason: constipation Last Admin: 05/13/19 13:50 Dose: 17 gm Discontinued Medications Apixaban (Eliquis) 5 mg PO BID [facility] Last Admin: 05/08/19 08:10 Dose: 5 mg Furosemide (Lasix) 20 mg IVPUSH ONETIME ONE Stop: 05/07/19 19:02 Last Admin: 05/07/19 19:06 Dose: 20 mg Furosemide (Lasix) Confirm Administered Dose 40 mg .ROUTE .STK-MED ONE Stop: 05/07/19 19:04 Last Admin: 05/07/19 20:53 Dose: Not Given Furosemide (Lasix) 40 mg IVPUSH BID [facility] Last Admin: 05/08/19 20:34 Dose: 40 mg Furosemide (Lasix) 40 mg IVPUSH BIDDIURETIC [facility] Last Admin: 05/11/19 09:24 Dose: 40 mg Furosemide (Lasix) 40 mg IV ONETIME ONE Stop: 05/15/19 10:46 Last Admin: 05/15/19 11:00 Dose: 40 mg Sodium Chloride (Normal Saline) 1,000 mls @ 125 mls/hr IV STAT JACOB Sodium Chloride (Normal Saline) 1,000 mls @ 125 mls/hr IV ASDIRECTED [facility] Sodium Chloride (Normal Saline) 1,000 mls @ 125 mls/hr IV .Bolus ONE Stop: 05/08/19 02:08 Last Admin: 05/07/19 18:25 Dose: 125 mls/hr Pantoprazole Sodium 40 mg/ (Sodium Chloride) 10 mls @ 300 mls/hr IV Q12H [facility] Last Admin: 05/11/19 21:30 Dose: 300 mls/hr Magnesium Sulfate 2 gm/ Premix 50 mls @ 25 mls/hr IV ONETIME ONE Stop: 05/10/19 11:47 Last Admin: 05/10/19 10:40 Dose: 25 mls/hr Metoprolol Tartrate (Lopressor) 100 mg PO BID [facility] Last Admin: 05/12/19 09:09 Dose: 100 mg Metoprolol Tartrate (Lopressor) 50 mg PO ONETIME ONE Stop: 05/12/19 20:46 Last Admin: 05/12/19 20:59 Dose: 50 mg Potassium Chloride (Klor-Con M20) 40 meq PO ONETIME ONE Stop: 05/12/19 07:24 Last Admin: 05/12/19 08:00 Dose: 40 meq - Problem List & Annotations (1) Congestive heart failure SNOMED Code(s): 57235807 Code(s): I50.9 - HEART FAILURE, UNSPECIFIED Status: Acute Current Visit: Yes (2) Generalized weakness SNOMED Code(s): 88347280 Code(s): R53.1 - WEAKNESS Status: Acute Current Visit: Yes (3) Atrial fibrillation SNOMED Code(s): 80983282 Code(s): I48.91 - UNSPECIFIED ATRIAL FIBRILLATION Status: Acute Current Visit: No (4) Lumbar back pain with radiculopathy affecting right lower extremity SNOMED Code(s): 664166472, 833848027 Code(s): M54.17 - RADICULOPATHY, LUMBOSACRAL REGION Status: Acute Current Visit: No - Plan Plan:: I have seen and evaluated the patient and agree with the residents note unless specified in my note
--- NOTE | 2019-05-14 14:40 | ECHO ---
The echocardiogram report can be seen in this patient's EMR (Electronic Medical Records) in the REPORTS section. The echocardiogram report has also been scanned into PACS and can be seen there as well. LISBETH
[2019-05-15] MEDS: Pantoprazole 40 MG Tab.CR PO SCH ×2 (06:44→18:07)
[2019-05-15] MEDS: Insulin Aspart 100 Units/ML 3 ML Pen SUBCUT SCH ×3 (06:46→18:06)
[2019-05-15 06:50] LABS: BLOOD UREA NITROGEN,BUN 17 mg/dL (7.0-18.0); CHLORIDE,CL 104 mmol/L (98-107); GLUCOSE RANDOM 226 mg/dL (74-106); POTASSIUM,K 4.1 mmol/L (3.5-5.1); SODIUM,NA 140 mmol/L (136-148)
--- NOTE | 2019-05-15 09:11 | PCM.PN ---
<Ethan Ly - Last Filed: 05/15/19 12:10> - General Info Date of Service: 05/15/19 Subjective Update: Reports no SOB, had dark bowel movement yesterday, tolerating oral diet. Slept well. - Patient Data Vitals - Most Recent: Last Vital Signs Temp 97.9 F 05/15/19 07:30 Pulse 81 05/15/19 07:30 Resp 16 05/15/19 07:30 BP 144/51 H 05/15/19 07:30 Pulse Ox 99 05/15/19 07:30 Weight - Most Recent: 73.5 kg I&O - Last 24 Hours: Intake & Output 05/14/19 05/15/19 05/15/19 22:59 06:59 14:59 Intake Total 700 500 Output Total 300 400 Balance 400 100 Lab Results Last 24 Hours: Laboratory Results - last 24 hr 05/14/19 05/14/19 05/14/19 Range/Units 09:40 11:29 14:10 WBC (4.0-11.0) K/uL RBC (4.50-5.90) M/uL Hgb (13.0-17.0) g/dL Hct (38.0-50.0) % MCV (80.0-98.0) fL MCH (27.0-32.0) pg MCHC (31.0-37.0) g/dL RDW Std Deviation (28.0-62.0) fl RDW Coeff of Theresa (11.0-15.0) % Plt Count (150-400) K/uL MPV (7.40-12.00) fL Neut % (Auto) (48.0-80.0) % Lymph % (Auto) (16.0-40.0) % [place] % (Auto) (0.0-15.0) % Eos % (Auto) (0.0-7.0) % Baso % (Auto) (0.0-1.5) % Neut # (Auto) (1.4-5.7) K/uL Lymph # (Auto) (0.6-2.4) K/uL [place] # (Auto) (0.0-0.8) K/uL Eos # (Auto) (0.0-0.7) K/uL Baso # (Auto) (0.0-0.1) K/uL Nucleated RBC % /100WBC Nucleated RBCs # K/uL Sodium (136-148) mmol/L Potassium (3.5-5.1) mmol/L Chloride (98-107) mmol/L Carbon Dioxide (21.0-32.0) mmol/L BUN (7.0-18.0) mg/dL Creatinine (0.8-1.3) mg/dL Est Cr Clr Drug Dosing mL/min Estimated GFR (MDRD) ml/min Glucose (74-106) mg/dL POC Glucose 213 H (60-110) mg/dL Calcium (8.5-10.1) mg/dL Urine Color YELLOW Urine Appearance CLEAR Urine pH 6.5 (5.0-8.0) Ur Specific [place] 1.015 (1.001-1.035) Urine Protein NEGATIVE (NEGATIVE) mg/dL Urine Glucose (UA) 100 H (NEGATIVE) mg/dL Urine Ketones NEGATIVE (NEGATIVE) mg/dL Urine Occult Blood NEGATIVE (NEGATIVE) Urine Nitrite NEGATIVE (NEGATIVE) Urine Bilirubin NEGATIVE (NEGATIVE) Urine Urobilinogen 0.2 (<2.0) EU/dL Ur Leukocyte Esterase NEGATIVE (NEGATIVE) Blood Type A POSITIVE Antibody Screen NEGATIVE Crossmatch See Detail 05/14/19 05/15/19 05/15/19 Range/Units 17:20 06:05 06:05 WBC 4.55 (4.0-11.0) K/uL RBC 2.85 L (4.50-5.90) M/uL Hgb 8.8 L (13.0-17.0) g/dL Hct 27.5 L (38.0-50.0) % MCV 96.5 (80.0-98.0) fL MCH 30.9 (27.0-32.0) pg MCHC 32.0 (31.0-37.0) g/dL RDW Std Deviation 55.4 (28.0-62.0) fl RDW Coeff of Theresa 16 H (11.0-15.0) % Plt Count 208 (150-400) K/uL MPV 9.00 (7.40-12.00) fL Neut % (Auto) 64.0 (48.0-80.0) % Lymph % (Auto) 20.2 (16.0-40.0) % [place] % (Auto) 12.5 (0.0-15.0) % Eos % (Auto) 3.1 (0.0-7.0) % Baso % (Auto) 0.2 (0.0-1.5) % Neut # (Auto) 2.9 (1.4-5.7) K/uL Lymph # (Auto) 0.9 (0.6-2.4) K/uL [place] # (Auto) 0.6 (0.0-0.8) K/uL Eos # (Auto) 0.1 (0.0-0.7) K/uL Baso # (Auto) 0.0 (0.0-0.1) K/uL Nucleated RBC % 0.0 /100WBC Nucleated RBCs # 0 K/uL Sodium 140 (136-148) mmol/L Potassium 4.1 (3.5-5.1) mmol/L Chloride 104 (98-107) mmol/L Carbon Dioxide 28.0 (21.0-32.0) mmol/L BUN 17 (7.0-18.0) mg/dL Creatinine 1.1 (0.8-1.3) mg/dL Est Cr Clr Drug Dosing 50.09 mL/min Estimated GFR (MDRD) > 60.0 ml/min Glucose 226 H (74-106) mg/dL POC Glucose 245 H (60-110) mg/dL Calcium 7.4 L (8.5-10.1) mg/dL Urine Color Urine Appearance Urine pH (5.0-8.0) Ur Specific [place] (1.001-1.035) Urine Protein (NEGATIVE) mg/dL Urine Glucose (UA) (NEGATIVE) mg/dL Urine Ketones (NEGATIVE) mg/dL Urine Occult Blood (NEGATIVE) Urine Nitrite (NEGATIVE) Urine Bilirubin (NEGATIVE) Urine Urobilinogen (<2.0) EU/dL Ur Leukocyte Esterase (NEGATIVE) Blood Type Antibody Screen Crossmatch 05/15/19 Range/Units 06:08 WBC (4.0-11.0) K/uL RBC (4.50-5.90) M/uL Hgb (13.0-17.0) g/dL Hct (38.0-50.0) % MCV (80.0-98.0) fL MCH (27.0-32.0) pg MCHC (31.0-37.0) g/dL RDW Std Deviation (28.0-62.0) fl RDW Coeff of Theresa (11.0-15.0) % Plt Count (150-400) K/uL MPV (7.40-12.00) fL Neut % (Auto) (48.0-80.0) % Lymph % (Auto) (16.0-40.0) % [place] % (Auto) (0.0-15.0) % Eos % (Auto) (0.0-7.0) % Baso % (Auto) (0.0-1.5) % Neut # (Auto) (1.4-5.7) K/uL Lymph # (Auto) (0.6-2.4) K/uL [place] # (Auto) (0.0-0.8) K/uL Eos # (Auto) (0.0-0.7) K/uL Baso # (Auto) (0.0-0.1) K/uL Nucleated RBC % /100WBC Nucleated RBCs # K/uL Sodium (136-148) mmol/L Potassium (3.5-5.1) mmol/L Chloride (98-107) mmol/L Carbon Dioxide (21.0-32.0) mmol/L BUN (7.0-18.0) mg/dL Creatinine (0.8-1.3) mg/dL Est Cr Clr Drug Dosing mL/min Estimated GFR (MDRD) ml/min Glucose (74-106) mg/dL POC Glucose 221 H (60-110) mg/dL Calcium (8.5-10.1) mg/dL Urine Color Urine Appearance Urine pH (5.0-8.0) Ur Specific [place] (1.001-1.035) Urine Protein (NEGATIVE) mg/dL Urine Glucose (UA) (NEGATIVE) mg/dL Urine Ketones (NEGATIVE) mg/dL Urine Occult Blood (NEGATIVE) Urine Nitrite (NEGATIVE) Urine Bilirubin (NEGATIVE) Urine Urobilinogen (<2.0) EU/dL Ur Leukocyte Esterase (NEGATIVE) Blood Type Antibody Screen Crossmatch Med Orders - Current: Current Medications Docusate Sodium (Colace) 100 mg PO BID PRN PRN Reason: Constipation Furosemide (Lasix) 40 mg PO DAILY [facility] Last Admin: 05/14/19 10:18 Dose: 40 mg Insulin Aspart (Novolog) 0 unit SUBCUT TIDAC [facility]; Protocol Last Admin: 05/15/19 06:46 Dose: 2 units Metoprolol Tartrate (Lopressor) 100 mg PO BID [facility] Last Admin: 05/14/19 20:17 Dose: 100 mg Multivitamins/Minerals (Prosight) 1 tab PO BID [facility] Last Admin: 05/14/19 20:17 Dose: 1 tab Nystatin (Nystatin Crm) 1 gm TOP BID [facility] Last Admin: 05/14/19 20:17 Dose: 1 applic Pantoprazole Sodium (Protonix) 40 mg PO BIDAC [facility] Last Admin: 05/15/19 06:44 Dose: 40 mg Tetrahydrozoline Hcl ([Visine]) 1 each EYERT QID PRN PRN Reason: Dry Eyes Polyethylene Glycol (Miralax) 17 gm PO DAILY PRN PRN Reason: constipation Last Admin: 05/13/19 13:50 Dose: 17 gm Discontinued Medications Apixaban (Eliquis) 5 mg PO BID [facility] Last Admin: 05/08/19 08:10 Dose: 5 mg Furosemide (Lasix) 20 mg IVPUSH ONETIME ONE Stop: 05/07/19 19:02 Last Admin: 05/07/19 19:06 Dose: 20 mg Furosemide (Lasix) Confirm Administered Dose 40 mg .ROUTE .STK-MED ONE Stop: 05/07/19 19:04 Last Admin: 05/07/19 20:53 Dose: Not Given Furosemide (Lasix) 40 mg IVPUSH BID [facility] Last Admin: 05/08/19 20:34 Dose: 40 mg Furosemide (Lasix) 40 mg IVPUSH BIDDIURETIC [facility] Last Admin: 05/11/19 09:24 Dose: 40 mg Sodium Chloride (Normal Saline) 1,000 mls @ 125 mls/hr IV STAT JACOB Sodium Chloride (Normal Saline) 1,000 mls @ 125 mls/hr IV ASDIRECTED JACOB Sodium Chloride (Normal Saline) 1,000 mls @ 125 mls/hr IV .Bolus ONE Stop: 05/08/19 02:08 Last Admin: 05/07/19 18:25 Dose: 125 mls/hr Pantoprazole Sodium 40 mg/ (Sodium Chloride) 10 mls @ 300 mls/hr IV Q12H [facility] Last Admin: 05/11/19 21:30 Dose: 300 mls/hr Magnesium Sulfate 2 gm/ Premix 50 mls @ 25 mls/hr IV ONETIME ONE Stop: 05/10/19 11:47 Last Admin: 05/10/19 10:40 Dose: 25 mls/hr Metoprolol Tartrate (Lopressor) 100 mg PO BID [facility] Last Admin: 05/12/19 09:09 Dose: 100 mg Metoprolol Tartrate (Lopressor) 50 mg PO ONETIME ONE Stop: 05/12/19 20:46 Last Admin: 05/12/19 20:59 Dose: 50 mg Potassium Chloride (Klor-Con M20) 40 meq PO ONETIME ONE Stop: 05/12/19 07:24 Last Admin: 05/12/19 08:00 Dose: 40 meq - Exam General: Alert, Oriented, Cooperative, No Acute Distress Lungs: Clear to Auscultation, Normal Respiratory Effort Cardiovascular: Regular Rate, Irregular Rhythm GI/Abdominal Exam: Normal Bowel Sounds, Soft, Non-Tender, No Distention Extremities: Other (trace edema bilaterally) - Problem List Review Problem List Initiated/Reviewed/Updated: Yes - Plan Plan:: Assessment: 1. Acute normocytic anemia s/p transfusion 3 units PRBC's. 2. CHF exacerbation, improved. 3. Atrial fibrillation, rate controlled, Eliquis held secondary to #1. 4. CASSIE, resolved. 5. Diabetes mellitus type 2. Plan: 1. For acute normocytic anemia, received 1 unit of PRBC's yesterday. Hemoglobin this morning is 8.8. Per general surgeon Dr. Luong, will do endoscopy and colonoscopy next week. Dr. Luong advised to keep patient on clear liquid diet on Friday. 2. For CHF, continue PO lasix, fluid restriction and low salt diet. Will give 1 dose of IV lasix 40 mg today as he had transfusion yesterday and legs appear more edematous than yesterday. 3. Patient currently awaiting [facility] disposition. <Mt Jose - Last Filed: 05/16/19 13:22> - Patient Data Vitals - Most Recent: Last Vital Signs Temp 36.4 C 05/16/19 11:00 Pulse 98 05/16/19 11:00 Resp 18 05/16/19 11:00 BP 135/58 L 05/16/19 11:00 Pulse Ox 99 05/16/19 11:00 I&O - Last 24 Hours: Intake & Output 05/15/19 05/16/19 05/16/19 22:59 06:59 14:59 Intake Total 500 360 Output Total 1250 Balance -750 360 Lab Results Last 24 Hours: Laboratory Results - last 24 hr 05/15/19 05/16/19 05/16/19 Range/Units 16:40 06:00 06:00 WBC 4.44 (4.0-11.0) K/uL RBC 2.84 L (4.50-5.90) M/uL Hgb 8.8 L (13.0-17.0) g/dL Hct 27.0 L (38.0-50.0) % MCV 95.1 (80.0-98.0) fL MCH 31.0 (27.0-32.0) pg MCHC 32.6 (31.0-37.0) g/dL RDW Std Deviation 52.6 (28.0-62.0) fl RDW Coeff of Theresa 15 (11.0-15.0) % Plt Count 211 (150-400) K/uL MPV 8.80 (7.40-12.00) fL Neut % (Auto) 59.2 (48.0-80.0) % Lymph % (Auto) 25.9 (16.0-40.0) % [place] % (Auto) 11.5 (0.0-15.0) % Eos % (Auto) 3.2 (0.0-7.0) % Baso % (Auto) 0.2 (0.0-1.5) % Neut # (Auto) 2.6 (1.4-5.7) K/uL Lymph # (Auto) 1.2 (0.6-2.4) K/uL [place] # (Auto) 0.5 (0.0-0.8) K/uL Eos # (Auto) 0.1 (0.0-0.7) K/uL Baso # (Auto) 0.0 (0.0-0.1) K/uL Nucleated RBC % 0.0 /100WBC Nucleated RBCs # 0 K/uL Sodium 140 (136-148) mmol/L Potassium 4.5 (3.5-5.1) mmol/L Chloride 105 (98-107) mmol/L Carbon Dioxide 30.1 (21.0-32.0) mmol/L BUN 14 (7.0-18.0) mg/dL Creatinine 1.0 (0.8-1.3) mg/dL Est Cr Clr Drug Dosing 55.10 mL/min Estimated GFR (MDRD) > 60.0 ml/min Glucose 163 H (74-106) mg/dL POC Glucose 164 H (60-110) mg/dL Calcium 7.7 L (8.5-10.1) mg/dL Total Bilirubin 0.3 (0.2-1.0) mg/dL AST 15 (15-37) IU/L ALT 29 (14-63) IU/L Alkaline Phosphatase 90 (46-116) U/L Total Protein 5.3 L (6.4-8.2) g/dL Albumin 2.6 L (3.4-5.0) g/dL Globulin 2.7 (2.6-4.0) g/dL Albumin/Globulin Ratio 1.0 (0.9-1.6) 05/16/19 05/16/19 Range/Units 07:04 11:37 WBC (4.0-11.0) K/uL RBC (4.50-5.90) M/uL Hgb (13.0-17.0) g/dL Hct (38.0-50.0) % MCV (80.0-98.0) fL MCH (27.0-32.0) pg MCHC (31.0-37.0) g/dL RDW Std Deviation (28.0-62.0) fl RDW Coeff of Theresa (11.0-15.0) % Plt Count (150-400) K/uL MPV (7.40-12.00) fL Neut % (Auto) (48.0-80.0) % Lymph % (Auto) (16.0-40.0) % [place] % (Auto) (0.0-15.0) % Eos % (Auto) (0.0-7.0) % Baso % (Auto) (0.0-1.5) % Neut # (Auto) (1.4-5.7) K/uL Lymph # (Auto) (0.6-2.4) K/uL [place] # (Auto) (0.0-0.8) K/uL Eos # (Auto) (0.0-0.7) K/uL Baso # (Auto) (0.0-0.1) K/uL Nucleated RBC % /100WBC Nucleated RBCs # K/uL Sodium (136-148) mmol/L Potassium (3.5-5.1) mmol/L Chloride (98-107) mmol/L Carbon Dioxide (21.0-32.0) mmol/L BUN (7.0-18.0) mg/dL Creatinine (0.8-1.3) mg/dL Est Cr Clr Drug Dosing mL/min Estimated GFR (MDRD) ml/min Glucose (74-106) mg/dL POC Glucose 154 H 230 H (60-110) mg/dL Calcium (8.5-10.1) mg/dL Total Bilirubin (0.2-1.0) mg/dL AST (15-37) IU/L ALT (14-63) IU/L Alkaline Phosphatase (46-116) U/L Total Protein (6.4-8.2) g/dL Albumin (3.4-5.0) g/dL Globulin (2.6-4.0) g/dL Albumin/Globulin Ratio (0.9-1.6) Med Orders - Current: Current Medications Docusate Sodium (Colace) 100 mg PO BID PRN PRN Reason: Constipation Furosemide (Lasix) 40 mg PO DAILY [facility] Last Admin: 05/16/19 09:00 Dose: 40 mg Insulin Aspart (Novolog) 0 unit SUBCUT TIDAC [facility]; Protocol Last Admin: 05/16/19 11:51 Dose: 2 units Metoprolol Tartrate (Lopressor) 100 mg PO BID [facility] Last Admin: 05/16/19 09:00 Dose: 100 mg Multivitamins/Minerals (Prosight) 1 tab PO BID [facility] Last Admin: 05/16/19 09:00 Dose: 1 tab Nystatin (Nystatin Crm) 1 gm TOP BID [facility] Last Admin: 05/16/19 09:00 Dose: Not Given Pantoprazole Sodium (Protonix) 40 mg PO BIDAC [facility] Last Admin: 05/16/19 07:02 Dose: 40 mg Tetrahydrozoline Hcl ([Visine]) 1 each EYERT QID PRN PRN Reason: Dry Eyes Polyethylene Glycol (Miralax) 17 gm PO DAILY PRN PRN Reason: constipation Last Admin: 05/13/19 13:50 Dose: 17 gm Discontinued Medications Apixaban (Eliquis) 5 mg PO BID [facility] Last Admin: 05/08/19 08:10 Dose: 5 mg Furosemide (Lasix) 20 mg IVPUSH ONETIME ONE Stop: 05/07/19 19:02 Last Admin: 05/07/19 19:06 Dose: 20 mg Furosemide (Lasix) Confirm Administered Dose 40 mg .ROUTE .STK-MED ONE Stop: 05/07/19 19:04 Last Admin: 05/07/19 20:53 Dose: Not Given Furosemide (Lasix) 40 mg IVPUSH BID [facility] Last Admin: 05/08/19 20:34 Dose: 40 mg Furosemide (Lasix) 40 mg IVPUSH BIDDIURETIC [facility] Last Admin: 05/11/19 09:24 Dose: 40 mg Furosemide (Lasix) 40 mg IV ONETIME ONE Stop: 05/15/19 10:46 Last Admin: 05/15/19 11:00 Dose: 40 mg Sodium Chloride (Normal Saline) 1,000 mls @ 125 mls/hr IV STAT [facility] Sodium Chloride (Normal Saline) 1,000 mls @ 125 mls/hr IV ASDIRECTED [facility] Sodium Chloride (Normal Saline) 1,000 mls @ 125 mls/hr IV .Bolus ONE Stop: 05/08/19 02:08 Last Admin: 05/07/19 18:25 Dose: 125 mls/hr Pantoprazole Sodium 40 mg/ (Sodium Chloride) 10 mls @ 300 mls/hr IV Q12H [facility] Last Admin: 05/11/19 21:30 Dose: 300 mls/hr Magnesium Sulfate 2 gm/ Premix 50 mls @ 25 mls/hr IV ONETIME ONE Stop: 05/10/19 11:47 Last Admin: 05/10/19 10:40 Dose: 25 mls/hr Metoprolol Tartrate (Lopressor) 100 mg PO BID [facility] Last Admin: 05/12/19 09:09 Dose: 100 mg Metoprolol Tartrate (Lopressor) 50 mg PO ONETIME ONE Stop: 05/12/19 20:46 Last Admin: 05/12/19 20:59 Dose: 50 mg Potassium Chloride (Klor-Con M20) 40 meq PO ONETIME ONE Stop: 05/12/19 07:24 Last Admin: 05/12/19 08:00 Dose: 40 meq - Problem List & Annotations (1) Congestive heart failure SNOMED Code(s): 31712601 Code(s): I50.9 - HEART FAILURE, UNSPECIFIED Status: Acute Current Visit: Yes (2) Generalized weakness SNOMED Code(s): 70830942 Code(s): R53.1 - WEAKNESS Status: Acute Current Visit: Yes (3) Atrial fibrillation SNOMED Code(s): 54368901 Code(s): I48.91 - UNSPECIFIED ATRIAL FIBRILLATION Status: Acute Current Visit: No (4) Lumbar back pain with radiculopathy affecting right lower extremity SNOMED Code(s): 198095724, 265956130 Code(s): M54.17 - RADICULOPATHY, LUMBOSACRAL REGION Status: Acute Current Visit: No - Plan Plan:: I have seen and evaluated the patient and agree with the residents note unless specified in my note
[2019-05-15] MEDS: Furosemide 40 MG Tab PO SCH (09:48)
[2019-05-15] MEDS: Metoprolol Tartrate 50 MG Tab PO SCH ×2 (09:48→21:33)
[2019-05-15] MEDS: Beta-Carotene (Vitamin A) w/Vitamin C & E plus Minerals Tab PO SCH ×2 (09:48→21:33)
[2019-05-15] MEDS: Nystatin Crm 30 GM Tube TOP SCH ×2 (09:49→21:34)
[2019-05-15] MEDS ORDERED: Furosemide 40 MG in Sodium Chloride 0.9% 50 ML IV ONE (10:15)
[2019-05-15] MEDS ORDERED: Furosemide 40 MG/4 ML VIAL IV ONE (10:45)
[2019-05-16 06:45] LABS: BLOOD UREA NITROGEN,BUN 14 mg/dL (7.0-18.0); CARBON DIOXIDE,CO2 30.1 mmol/L (21.0-32.0); CHLORIDE,CL 105 mmol/L (98-107); GLUCOSE RANDOM 163 mg/dL (74-106); POTASSIUM,K 4.5 mmol/L (3.5-5.1); SODIUM,NA 140 mmol/L (136-148)
[2019-05-16] MEDS: Pantoprazole 40 MG Tab.CR PO SCH ×2 (07:02→17:51)
[2019-05-16] MEDS: Insulin Aspart 100 Units/ML 3 ML Pen SUBCUT SCH ×3 (07:05→17:50)
[2019-05-16] MEDS: Metoprolol Tartrate 50 MG Tab PO SCH ×2 (09:00→21:07)
[2019-05-16] MEDS: Beta-Carotene (Vitamin A) w/Vitamin C & E plus Minerals Tab PO SCH ×2 (09:00→21:07)
[2019-05-16] MEDS: Furosemide 40 MG Tab PO SCH (09:00)
[2019-05-16] MEDS: Nystatin Crm 30 GM Tube TOP SCH ×2 (09:00→21:10)
--- NOTE | 2019-05-16 13:46 | PCM.PN ---
- General Info Date of Service: 05/16/19 Admission Dx/Problem (Free Text): Admission Diagnosis/Problem Admission Diagnosis/Problem Weakness Subjective Update: Reports no SOB, bowel movement yesterday which is more brown than dark, tolerating oral diet. Slept well. - Review of Systems General: Denies: Fever, Weakness, Fatigue Pulmonary: Denies: Shortness of Breath, Pleuritic Chest Pain Cardiovascular: Denies: Chest Pain Gastrointestinal: Denies: Abdominal Pain, Constipation Genitourinary: Denies: Dysuria, Frequency, Burning Musculoskeletal: Denies: Neck Pain, Shoulder Pain Skin: Denies: Cyanosis, Jaundice - Patient Data Vitals - Most Recent: Last Vital Signs Temp 36.4 C 05/16/19 11:00 Pulse 98 05/16/19 11:00 Resp 18 05/16/19 11:00 BP 135/58 L 05/16/19 11:00 Pulse Ox 99 05/16/19 11:00 Weight - Most Recent: 72.9 kg I&O - Last 24 Hours: Intake & Output 05/15/19 05/16/19 05/16/19 22:59 06:59 14:59 Intake Total 500 360 Output Total 1250 Balance -750 360 Lab Results Last 24 Hours: Laboratory Results - last 24 hr 05/15/19 05/16/19 05/16/19 Range/Units 16:40 06:00 06:00 WBC 4.44 (4.0-11.0) K/uL RBC 2.84 L (4.50-5.90) M/uL Hgb 8.8 L (13.0-17.0) g/dL Hct 27.0 L (38.0-50.0) % MCV 95.1 (80.0-98.0) fL MCH 31.0 (27.0-32.0) pg MCHC 32.6 (31.0-37.0) g/dL RDW Std Deviation 52.6 (28.0-62.0) fl RDW Coeff of Theresa 15 (11.0-15.0) % Plt Count 211 (150-400) K/uL MPV 8.80 (7.40-12.00) fL Neut % (Auto) 59.2 (48.0-80.0) % Lymph % (Auto) 25.9 (16.0-40.0) % [place] % (Auto) 11.5 (0.0-15.0) % Eos % (Auto) 3.2 (0.0-7.0) % Baso % (Auto) 0.2 (0.0-1.5) % Neut # (Auto) 2.6 (1.4-5.7) K/uL Lymph # (Auto) 1.2 (0.6-2.4) K/uL [place] # (Auto) 0.5 (0.0-0.8) K/uL Eos # (Auto) 0.1 (0.0-0.7) K/uL Baso # (Auto) 0.0 (0.0-0.1) K/uL Nucleated RBC % 0.0 /100WBC Nucleated RBCs # 0 K/uL Sodium 140 (136-148) mmol/L Potassium 4.5 (3.5-5.1) mmol/L Chloride 105 (98-107) mmol/L Carbon Dioxide 30.1 (21.0-32.0) mmol/L BUN 14 (7.0-18.0) mg/dL Creatinine 1.0 (0.8-1.3) mg/dL Est Cr Clr Drug Dosing 55.10 mL/min Estimated GFR (MDRD) > 60.0 ml/min Glucose 163 H (74-106) mg/dL POC Glucose 164 H (60-110) mg/dL Calcium 7.7 L (8.5-10.1) mg/dL Total Bilirubin 0.3 (0.2-1.0) mg/dL AST 15 (15-37) IU/L ALT 29 (14-63) IU/L Alkaline Phosphatase 90 (46-116) U/L Total Protein 5.3 L (6.4-8.2) g/dL Albumin 2.6 L (3.4-5.0) g/dL Globulin 2.7 (2.6-4.0) g/dL Albumin/Globulin Ratio 1.0 (0.9-1.6) 05/16/19 05/16/19 Range/Units 07:04 11:37 WBC (4.0-11.0) K/uL RBC (4.50-5.90) M/uL Hgb (13.0-17.0) g/dL Hct (38.0-50.0) % MCV (80.0-98.0) fL MCH (27.0-32.0) pg MCHC (31.0-37.0) g/dL RDW Std Deviation (28.0-62.0) fl RDW Coeff of Theresa (11.0-15.0) % Plt Count (150-400) K/uL MPV (7.40-12.00) fL Neut % (Auto) (48.0-80.0) % Lymph % (Auto) (16.0-40.0) % [place] % (Auto) (0.0-15.0) % Eos % (Auto) (0.0-7.0) % Baso % (Auto) (0.0-1.5) % Neut # (Auto) (1.4-5.7) K/uL Lymph # (Auto) (0.6-2.4) K/uL [place] # (Auto) (0.0-0.8) K/uL Eos # (Auto) (0.0-0.7) K/uL Baso # (Auto) (0.0-0.1) K/uL Nucleated RBC % /100WBC Nucleated RBCs # K/uL Sodium (136-148) mmol/L Potassium (3.5-5.1) mmol/L Chloride (98-107) mmol/L Carbon Dioxide (21.0-32.0) mmol/L BUN (7.0-18.0) mg/dL Creatinine (0.8-1.3) mg/dL Est Cr Clr Drug Dosing mL/min Estimated GFR (MDRD) ml/min Glucose (74-106) mg/dL POC Glucose 154 H 230 H (60-110) mg/dL Calcium (8.5-10.1) mg/dL Total Bilirubin (0.2-1.0) mg/dL AST (15-37) IU/L ALT (14-63) IU/L Alkaline Phosphatase (46-116) U/L Total Protein (6.4-8.2) g/dL Albumin (3.4-5.0) g/dL Globulin (2.6-4.0) g/dL Albumin/Globulin Ratio (0.9-1.6) Med Orders - Current: Current Medications Docusate Sodium (Colace) 100 mg PO BID PRN PRN Reason: Constipation Furosemide (Lasix) 40 mg PO DAILY [facility] Last Admin: 05/16/19 09:00 Dose: 40 mg Insulin Aspart (Novolog) 0 unit SUBCUT TIDAC [facility]; Protocol Last Admin: 05/16/19 11:51 Dose: 2 units Metoprolol Tartrate (Lopressor) 100 mg PO BID [facility] Last Admin: 05/16/19 09:00 Dose: 100 mg Multivitamins/Minerals (Prosight) 1 tab PO BID [facility] Last Admin: 05/16/19 09:00 Dose: 1 tab Nystatin (Nystatin Crm) 1 gm TOP BID [facility] Last Admin: 05/16/19 09:00 Dose: Not Given Pantoprazole Sodium (Protonix) 40 mg PO BIDAC [facility] Last Admin: 05/16/19 07:02 Dose: 40 mg Tetrahydrozoline Hcl ([Visine]) 1 each EYERT QID PRN PRN Reason: Dry Eyes Polyethylene Glycol (Miralax) 17 gm PO DAILY PRN PRN Reason: constipation Last Admin: 05/13/19 13:50 Dose: 17 gm Discontinued Medications Apixaban (Eliquis) 5 mg PO BID [facility] Last Admin: 05/08/19 08:10 Dose: 5 mg Furosemide (Lasix) 20 mg IVPUSH ONETIME ONE Stop: 05/07/19 19:02 Last Admin: 05/07/19 19:06 Dose: 20 mg Furosemide (Lasix) Confirm Administered Dose 40 mg .ROUTE .STK-MED ONE Stop: 05/07/19 19:04 Last Admin: 05/07/19 20:53 Dose: Not Given Furosemide (Lasix) 40 mg IVPUSH BID [facility] Last Admin: 05/08/19 20:34 Dose: 40 mg Furosemide (Lasix) 40 mg IVPUSH BIDDIURETIC [facility] Last Admin: 05/11/19 09:24 Dose: 40 mg Furosemide (Lasix) 40 mg IV ONETIME ONE Stop: 05/15/19 10:46 Last Admin: 05/15/19 11:00 Dose: 40 mg Sodium Chloride (Normal Saline) 1,000 mls @ 125 mls/hr IV STAT JACOB Sodium Chloride (Normal Saline) 1,000 mls @ 125 mls/hr IV ASDIRECTED JACOB Sodium Chloride (Normal Saline) 1,000 mls @ 125 mls/hr IV .Bolus ONE Stop: 05/08/19 02:08 Last Admin: 05/07/19 18:25 Dose: 125 mls/hr Pantoprazole Sodium 40 mg/ (Sodium Chloride) 10 mls @ 300 mls/hr IV Q12H [facility] Last Admin: 05/11/19 21:30 Dose: 300 mls/hr Magnesium Sulfate 2 gm/ Premix 50 mls @ 25 mls/hr IV ONETIME ONE Stop: 05/10/19 11:47 Last Admin: 05/10/19 10:40 Dose: 25 mls/hr Metoprolol Tartrate (Lopressor) 100 mg PO BID [facility] Last Admin: 05/12/19 09:09 Dose: 100 mg Metoprolol Tartrate (Lopressor) 50 mg PO ONETIME ONE Stop: 05/12/19 20:46 Last Admin: 05/12/19 20:59 Dose: 50 mg Potassium Chloride (Klor-Con M20) 40 meq PO ONETIME ONE Stop: 05/12/19 07:24 Last Admin: 05/12/19 08:00 Dose: 40 meq - Exam General: Alert, Oriented, Cooperative Neck: Supple, Trachea Midline Lungs: Clear to Auscultation, Normal Respiratory Effort Cardiovascular: Regular Rate. No: Bradycardia, Tachycardia GI/Abdominal Exam: Normal Bowel Sounds, Soft, Non-Tender Back Exam: Normal Inspection Extremities: Normal Inspection, Normal Range of Motion Peripheral Pulses: 3+: Dorsalis Pedis (L), Dorsalis Pedis (R) Skin: Warm - Problem List & Annotations (1) Congestive heart failure SNOMED Code(s): 91832664 Code(s): I50.9 - HEART FAILURE, UNSPECIFIED Status: Acute Current Visit: Yes (2) Generalized weakness SNOMED Code(s): 49286881 Code(s): R53.1 - WEAKNESS Status: Acute Current Visit: Yes (3) Atrial fibrillation SNOMED Code(s): 02244184 Code(s): I48.91 - UNSPECIFIED ATRIAL FIBRILLATION Status: Acute Current Visit: No (4) Lumbar back pain with radiculopathy affecting right lower extremity SNOMED Code(s): 685221302, 187309922 Code(s): M54.17 - RADICULOPATHY, LUMBOSACRAL REGION Status: Acute Current Visit: No - Assessment Assessment:: I have seen and evaluated the patient and agree with the residents note unless specified in my note - Plan Plan:: 1:GI Bleeding:S/P received 2 unit of PRBC's. Hemoglobin this morning is 8.8. Per general surgeon Dr. Luong, will do endoscopy and colonoscopy next week. Dr. Luong advised to keep patient on clear liquid diet on Friday. 2. For CHF, continue PO lasix, fluid restriction and low salt diet. Will give 1 dose of IV lasix 40 mg today as he had transfusion yesterday and legs appear more edematous than yesterday. 3. Patient currently awaiting [facility] disposition. 4: Afib: cont holding DOAC due to bleeding, rate controlled right now
[2019-05-17] MEDS: Pantoprazole 40 MG Tab.CR PO SCH ×2 (06:50→18:03)
[2019-05-17] MEDS: Insulin Aspart 100 Units/ML 3 ML Pen SUBCUT SCH ×3 (06:52→18:03)
[2019-05-17] MEDS: Metoprolol Tartrate 50 MG Tab PO SCH ×2 (08:52→20:21)
[2019-05-17] MEDS: Beta-Carotene (Vitamin A) w/Vitamin C & E plus Minerals Tab PO SCH ×2 (08:53→20:24)
[2019-05-17] MEDS: Nystatin Crm 30 GM Tube TOP SCH ×2 (08:53→20:24)
[2019-05-17] MEDS: Furosemide 40 MG Tab PO SCH (09:02)
[2019-05-17] MEDS ORDERED: Magnesium Sulfate/Water 2 GM in Premix Bag 1 BAG IV ONE (09:02)
--- NOTE | 2019-05-17 09:28 | PCM.PN ---
<Ethan Ly M - Last Filed: 05/17/19 12:16> - General Info Date of Service: 05/17/19 Subjective Update: Reports occasional shortness of breath when lying down. Tolerating PO diet and had bowel movement yesterday. - Patient Data Vitals - Most Recent: Last Vital Signs Temp 97.9 F 05/17/19 07:29 Pulse 77 05/17/19 08:52 Resp 16 05/17/19 07:29 BP 144/62 H 05/17/19 08:52 Pulse Ox 93 L 05/17/19 07:29 Weight - Most Recent: 73.21 kg I&O - Last 24 Hours: Intake & Output 05/16/19 05/17/19 05/17/19 22:59 06:59 14:59 Intake Total 800 580 Output Total 800 Balance 0 580 Lab Results Last 24 Hours: Laboratory Results - last 24 hr 05/16/19 05/16/19 05/17/19 Range/Units 11:37 17:28 05:45 WBC 4.31 (4.0-11.0) K/uL RBC 2.96 L (4.50-5.90) M/uL Hgb 8.9 L (13.0-17.0) g/dL Hct 28.3 L (38.0-50.0) % MCV 95.6 (80.0-98.0) fL MCH 30.1 (27.0-32.0) pg MCHC 31.4 (31.0-37.0) g/dL RDW Std Deviation 52.9 (28.0-62.0) fl RDW Coeff of Theresa 15 (11.0-15.0) % Plt Count 231 (150-400) K/uL MPV 9.00 (7.40-12.00) fL Neut % (Auto) 58.0 (48.0-80.0) % Lymph % (Auto) 26.7 (16.0-40.0) % [place] % (Auto) 12.5 (0.0-15.0) % Eos % (Auto) 2.6 (0.0-7.0) % Baso % (Auto) 0.2 (0.0-1.5) % Neut # (Auto) 2.5 (1.4-5.7) K/uL Lymph # (Auto) 1.2 (0.6-2.4) K/uL [place] # (Auto) 0.5 (0.0-0.8) K/uL Eos # (Auto) 0.1 (0.0-0.7) K/uL Baso # (Auto) 0.0 (0.0-0.1) K/uL Nucleated RBC % 0.0 /100WBC Nucleated RBCs # 0 K/uL POC Glucose 230 H 167 H (60-110) mg/dL Phosphorus (2.6-4.7) mg/dL Magnesium (1.8-2.4) mg/dL 05/17/19 05/17/19 Range/Units 05:45 06:14 WBC (4.0-11.0) K/uL RBC (4.50-5.90) M/uL Hgb (13.0-17.0) g/dL Hct (38.0-50.0) % MCV (80.0-98.0) fL MCH (27.0-32.0) pg MCHC (31.0-37.0) g/dL RDW Std Deviation (28.0-62.0) fl RDW Coeff of Theresa (11.0-15.0) % Plt Count (150-400) K/uL MPV (7.40-12.00) fL Neut % (Auto) (48.0-80.0) % Lymph % (Auto) (16.0-40.0) % [place] % (Auto) (0.0-15.0) % Eos % (Auto) (0.0-7.0) % Baso % (Auto) (0.0-1.5) % Neut # (Auto) (1.4-5.7) K/uL Lymph # (Auto) (0.6-2.4) K/uL [place] # (Auto) (0.0-0.8) K/uL Eos # (Auto) (0.0-0.7) K/uL Baso # (Auto) (0.0-0.1) K/uL Nucleated RBC % /100WBC Nucleated RBCs # K/uL POC Glucose 173 H (60-110) mg/dL Phosphorus 3.4 (2.6-4.7) mg/dL Magnesium 1.7 L (1.8-2.4) mg/dL Med Orders - Current: Current Medications Docusate Sodium (Colace) 100 mg PO BID PRN PRN Reason: Constipation Furosemide (Lasix) 40 mg PO DAILY [facility] Last Admin: 05/17/19 09:02 Dose: 40 mg Magnesium Sulfate 2 gm/ Premix 50 mls @ 25 mls/hr IV ONETIME ONE Stop: 05/17/19 11:01 Insulin Aspart (Novolog) 0 unit SUBCUT TIDAC [facility]; Protocol Last Admin: 05/17/19 06:52 Dose: 1 units Metoprolol Tartrate (Lopressor) 100 mg PO BID [facility] Last Admin: 05/17/19 08:52 Dose: 100 mg Multivitamins/Minerals (Prosight) 1 tab PO BID [facility] Last Admin: 05/17/19 08:53 Dose: 1 tab Nystatin (Nystatin Crm) 1 gm TOP BID [facility] Last Admin: 05/17/19 08:53 Dose: Not Given Pantoprazole Sodium (Protonix) 40 mg PO BIDAC [facility] Last Admin: 05/17/19 06:50 Dose: 40 mg Tetrahydrozoline Hcl ([Visine]) 1 each EYERT QID PRN PRN Reason: Dry Eyes Polyethylene Glycol (Miralax) 17 gm PO DAILY PRN PRN Reason: constipation Last Admin: 05/13/19 13:50 Dose: 17 gm Discontinued Medications Apixaban (Eliquis) 5 mg PO BID [facility] Last Admin: 05/08/19 08:10 Dose: 5 mg Furosemide (Lasix) 20 mg IVPUSH ONETIME ONE Stop: 05/07/19 19:02 Last Admin: 05/07/19 19:06 Dose: 20 mg Furosemide (Lasix) Confirm Administered Dose 40 mg .ROUTE .STK-MED ONE Stop: 05/07/19 19:04 Last Admin: 05/07/19 20:53 Dose: Not Given Furosemide (Lasix) 40 mg IVPUSH BID [facility] Last Admin: 05/08/19 20:34 Dose: 40 mg Furosemide (Lasix) 40 mg IVPUSH BIDDIURETIC [facility] Last Admin: 05/11/19 09:24 Dose: 40 mg Furosemide (Lasix) 40 mg IV ONETIME ONE Stop: 05/15/19 10:46 Last Admin: 05/15/19 11:00 Dose: 40 mg Sodium Chloride (Normal Saline) 1,000 mls @ 125 mls/hr IV STAT JACOB Sodium Chloride (Normal Saline) 1,000 mls @ 125 mls/hr IV ASDIRECTED [facility] Sodium Chloride (Normal Saline) 1,000 mls @ 125 mls/hr IV .Bolus ONE Stop: 05/08/19 02:08 Last Admin: 05/07/19 18:25 Dose: 125 mls/hr Pantoprazole Sodium 40 mg/ (Sodium Chloride) 10 mls @ 300 mls/hr IV Q12H [facility] Last Admin: 05/11/19 21:30 Dose: 300 mls/hr Magnesium Sulfate 2 gm/ Premix 50 mls @ 25 mls/hr IV ONETIME ONE Stop: 05/10/19 11:47 Last Admin: 05/10/19 10:40 Dose: 25 mls/hr Metoprolol Tartrate (Lopressor) 100 mg PO BID [facility] Last Admin: 05/12/19 09:09 Dose: 100 mg Metoprolol Tartrate (Lopressor) 50 mg PO ONETIME ONE Stop: 05/12/19 20:46 Last Admin: 05/12/19 20:59 Dose: 50 mg Potassium Chloride (Klor-Con M20) 40 meq PO ONETIME ONE Stop: 05/12/19 07:24 Last Admin: 05/12/19 08:00 Dose: 40 meq - Exam General: Alert, Oriented, No Acute Distress Lungs: Other (mild crackles in bases bilaterally.) Cardiovascular: Regular Rate, Irregular Rhythm GI/Abdominal Exam: Normal Bowel Sounds, Soft, Non-Tender, No Distention Extremities: Other (1+ pitting edema bilaterally.) - Problem List Review Problem List Initiated/Reviewed/Updated: Yes - My Orders Last 24 Hours: My Active Orders 05/17/19 09:02 Magnesium Sulfate/Water [Magnesium Sulfate in Water Premix] 2 gm Premix Bag 1 bag IV ONETIME - Plan Plan:: Assessment and Plan: 1. Acute normocytic anemia secondary to GI bleed S/P transfusion of 3 units of PRBC's: Hemoglobin this morning 8.9. As per Dr. Luong, patient will be going for EGD and colonoscopy tomorrow. CLD today. NPO at midnight. 2. Congestive heart failure: Will continue PO lasix, fluid restriction and low salt diet. Will give IV lasix 40 mg x 1 dose today. 3. Afib, rate controlled: DOAC has been held due to bleeding. 4. As per , patient accepted to [facility] on discharge. <Sal Josealeksandr - Last Filed: 05/18/19 11:52> - Patient Data Vitals - Most Recent: Last Vital Signs Temp 36.6 C 05/18/19 11:49 Pulse 69 05/18/19 11:49 Resp 16 05/18/19 11:49 BP 141/48 H 05/18/19 11:49 Pulse Ox 98 05/18/19 11:49 I&O - Last 24 Hours: Intake & Output 05/17/19 05/18/19 05/18/19 22:59 06:59 14:59 Intake Total 1500 740 Output Total 502 1200 Balance 998 -460 Lab Results Last 24 Hours: Laboratory Results - last 24 hr 05/17/19 05/18/19 05/18/19 Range/Units 16:09 05:44 05:44 WBC 3.69 L (4.0-11.0) K/uL RBC 2.87 L (4.50-5.90) M/uL Hgb 9.1 L (13.0-17.0) g/dL Hct 27.6 L (38.0-50.0) % MCV 96.2 (80.0-98.0) fL MCH 31.7 (27.0-32.0) pg MCHC 33.0 (31.0-37.0) g/dL RDW Std Deviation 48.2 (28.0-62.0) fl RDW Coeff of Theresa 14 (11.0-15.0) % Plt Count 257 (150-400) K/uL MPV 8.90 (7.40-12.00) fL Neut % (Auto) 51.2 (48.0-80.0) % Lymph % (Auto) 32.0 (16.0-40.0) % [place] % (Auto) 13.0 (0.0-15.0) % Eos % (Auto) 3.5 (0.0-7.0) % Baso % (Auto) 0.3 (0.0-1.5) % Neut # (Auto) 1.9 (1.4-5.7) K/uL Lymph # (Auto) 1.2 (0.6-2.4) K/uL [place] # (Auto) 0.5 (0.0-0.8) K/uL Eos # (Auto) 0.1 (0.0-0.7) K/uL Baso # (Auto) 0.0 (0.0-0.1) K/uL Sodium 142 (136-148) mmol/L Potassium 3.9 (3.5-5.1) mmol/L Chloride 106 (98-107) mmol/L Carbon Dioxide 29.7 (21.0-32.0) mmol/L BUN 10 (7.0-18.0) mg/dL Creatinine 1.0 (0.8-1.3) mg/dL Est Cr Clr Drug Dosing 55.10 mL/min Estimated GFR (MDRD) > 60.0 ml/min Glucose 129 H (74-106) mg/dL POC Glucose 206 H (60-110) mg/dL Calcium 8.2 L (8.5-10.1) mg/dL Magnesium (1.8-2.4) mg/dL 05/18/19 05/18/19 05/18/19 Range/Units 05:44 06:10 10:47 WBC (4.0-11.0) K/uL RBC (4.50-5.90) M/uL Hgb (13.0-17.0) g/dL Hct (38.0-50.0) % MCV (80.0-98.0) fL MCH (27.0-32.0) pg MCHC (31.0-37.0) g/dL RDW Std Deviation (28.0-62.0) fl RDW Coeff of Theresa (11.0-15.0) % Plt Count (150-400) K/uL MPV (7.40-12.00) fL Neut % (Auto) (48.0-80.0) % Lymph % (Auto) (16.0-40.0) % [place] % (Auto) (0.0-15.0) % Eos % (Auto) (0.0-7.0) % Baso % (Auto) (0.0-1.5) % Neut # (Auto) (1.4-5.7) K/uL Lymph # (Auto) (0.6-2.4) K/uL [place] # (Auto) (0.0-0.8) K/uL Eos # (Auto) (0.0-0.7) K/uL Baso # (Auto) (0.0-0.1) K/uL Sodium (136-148) mmol/L Potassium (3.5-5.1) mmol/L Chloride (98-107) mmol/L Carbon Dioxide (21.0-32.0) mmol/L BUN (7.0-18.0) mg/dL Creatinine (0.8-1.3) mg/dL Est Cr Clr Drug Dosing mL/min Estimated GFR (MDRD) ml/min Glucose (74-106) mg/dL POC Glucose 128 H 160 H (60-110) mg/dL Calcium (8.5-10.1) mg/dL Magnesium 1.8 (1.8-2.4) mg/dL Med Orders - Current: Current Medications Docusate Sodium (Colace) 100 mg PO BID PRN PRN Reason: Constipation Furosemide (Lasix) 60 mg PO DAILY [facility] Insulin Aspart (Novolog) 0 unit SUBCUT TIDAC [facility]; Protocol Last Admin: 05/18/19 06:46 Dose: Not Given Metoprolol Tartrate (Lopressor) 100 mg PO BID [facility] Last Admin: 05/18/19 08:28 Dose: 100 mg Multivitamins/Minerals (Prosight) 1 tab PO BID [facility] Last Admin: 05/18/19 08:28 Dose: 1 tab Nystatin (Nystatin Crm) 1 gm TOP BID [facility] Last Admin: 05/18/19 08:31 Dose: Not Given Pantoprazole Sodium (Protonix) 40 mg PO BIDAC [facility] Last Admin: 05/18/19 06:44 Dose: 40 mg Tetrahydrozoline Hcl ([Visine]) 1 each EYERT QID PRN PRN Reason: Dry Eyes Polyethylene Glycol (Miralax) 17 gm PO DAILY PRN PRN Reason: constipation Last Admin: 05/13/19 13:50 Dose: 17 gm Discontinued Medications Apixaban (Eliquis) 5 mg PO BID [facility] Last Admin: 05/08/19 08:10 Dose: 5 mg Bisacodyl (Dulcolax) 10 mg PO 05/17/19@1200,1800 [facility] Stop: 05/17/19 18:01 Last Admin: 05/17/19 12:47 Dose: Not Given Bisacodyl (Dulcolax) 20 mg PO 05/17/19@1245 [facility] Stop: 05/17/19 12:46 Last Admin: 05/17/19 12:46 Dose: 20 mg Fentanyl (Sublimaze) Confirm Administered Dose 100 mcg .ROUTE .STK-MED ONE Stop: 05/18/19 07:06 Furosemide (Lasix) 20 mg IVPUSH ONETIME ONE Stop: 05/07/19 19:02 Last Admin: 05/07/19 19:06 Dose: 20 mg Furosemide (Lasix) Confirm Administered Dose 40 mg .ROUTE .STK-MED ONE Stop: 05/07/19 19:04 Last Admin: 05/07/19 20:53 Dose: Not Given Furosemide (Lasix) 40 mg IVPUSH BID [facility] Last Admin: 05/08/19 20:34 Dose: 40 mg Furosemide (Lasix) 40 mg IVPUSH BIDDIURETIC [facility] Last Admin: 05/11/19 09:24 Dose: 40 mg Furosemide (Lasix) 40 mg PO DAILY [facility] Last Admin: 05/18/19 08:28 Dose: 40 mg Furosemide (Lasix) 40 mg IV ONETIME ONE Stop: 05/15/19 10:46 Last Admin: 05/15/19 11:00 Dose: 40 mg Furosemide (Lasix) 40 mg IVPUSH NOW ONE Stop: 05/17/19 09:59 Last Admin: 05/17/19 10:35 Dose: 40 mg Furosemide (Lasix) 20 mg PO ONETIME ONE Stop: 05/18/19 09:35 Last Admin: 05/18/19 10:14 Dose: 20 mg Sodium Chloride (Normal Saline) 1,000 mls @ 125 mls/hr IV STAT JACOB Sodium Chloride (Normal Saline) 1,000 mls @ 125 mls/hr IV ASDIRECTED [facility] Sodium Chloride (Normal Saline) 1,000 mls @ 125 mls/hr IV .Bolus ONE Stop: 05/08/19 02:08 Last Admin: 05/07/19 18:25 Dose: 125 mls/hr Pantoprazole Sodium 40 mg/ (Sodium Chloride) 10 mls @ 300 mls/hr IV Q12H [facility] Last Admin: 05/11/19 21:30 Dose: 300 mls/hr Magnesium Sulfate 2 gm/ Premix 50 mls @ 25 mls/hr IV ONETIME ONE Stop: 05/10/19 11:47 Last Admin: 05/10/19 10:40 Dose: 25 mls/hr Magnesium Sulfate 2 gm/ Premix 50 mls @ 25 mls/hr IV ONETIME ONE Stop: 05/17/19 11:01 Last Admin: 05/17/19 09:43 Dose: 25 mls/hr Lidocaine (Xylocaine-Mpf 2%) Confirm Administered Dose 5 ml .ROUTE .STK-MED ONE Stop: 05/18/19 07:06 Metoprolol Tartrate (Lopressor) 100 mg PO BID [facility] Last Admin: 05/12/19 09:09 Dose: 100 mg Metoprolol Tartrate (Lopressor) 50 mg PO ONETIME ONE Stop: 05/12/19 20:46 Last Admin: 05/12/19 20:59 Dose: 50 mg Polyethylene Glycol (Miralax) 119 gm PO 05/17/19@1400 [facility] Stop: 05/17/19 14:01 Last Admin: 05/17/19 14:53 Dose: 119 gm Polyethylene Glycol (Miralax) 119 gm PO 05/17/19@1800 [facility] Stop: 05/17/19 18:01 Last Admin: 05/17/19 18:55 Dose: 119 gm Potassium Chloride (Klor-Con M20) 40 meq PO ONETIME ONE Stop: 05/12/19 07:24 Last Admin: 05/12/19 08:00 Dose: 40 meq Propofol (Diprivan 20 Ml) Confirm Administered Dose 400 mg .ROUTE .STK-MED ONE Stop: 05/18/19 07:06 - Problem List & Annotations (1) Congestive heart failure SNOMED Code(s): 61303192 Code(s): I50.9 - HEART FAILURE, UNSPECIFIED Status: Acute Current Visit: Yes (2) Generalized weakness SNOMED Code(s): 43867209 Code(s): R53.1 - WEAKNESS Status: Acute Current Visit: Yes (3) Atrial fibrillation SNOMED Code(s): 85795901 Code(s): I48.91 - UNSPECIFIED ATRIAL FIBRILLATION Status: Acute Current Visit: No (4) Lumbar back pain with radiculopathy affecting right lower extremity SNOMED Code(s): 510632717, 932122238 Code(s): M54.17 - RADICULOPATHY, LUMBOSACRAL REGION Status: Acute Current Visit: No - Plan Plan:: I have seen and evaluated the patient and agree with the residents note unless specified in my note
[2019-05-17] MEDS ORDERED: Furosemide 40 MG/4 ML VIAL IVPUSH ONE (09:58)
[2019-05-17] MEDS ORDERED: Bisacodyl 5 MG Tab PO SCH ×2 (12:00→12:45)
--- NOTE | 2019-05-17 12:09 | PCM.CONSN ---
- General Info Date of Service: 05/17/19 Subjective Update: Patient has continued to have a slowly declining hemoglobin since his admission. He continues to have BMs. They are not frankly melonic or bright red. He has required another blood transfusion. Since then his hemoglobin has been stable. He denies SOB, chest pain, epigastric pain. Functional Status: Reports: Tolerating Diet, Ambulating, Urinating - Review of Systems General: Reports: No Symptoms HEENT: Reports: No Symptoms Pulmonary: Reports: No Symptoms Cardiovascular: Reports: No Symptoms Gastrointestinal: Reports: No Symptoms Genitourinary: Reports: No Symptoms Musculoskeletal: Reports: No Symptoms - Patient Data Vitals - Most Recent: Last Vital Signs Temp 36.6 C 05/17/19 07:29 Pulse 77 05/17/19 08:52 Resp 16 05/17/19 07:29 BP 144/62 H 05/17/19 08:52 Pulse Ox 93 L 05/17/19 07:29 Weight - Most Recent: 73.21 kg I&O - Last 24 Hours: Intake & Output 05/16/19 05/17/19 05/17/19 22:59 06:59 14:59 Intake Total 800 580 50 Output Total 800 Balance 0 580 50 Lab Results Last 24 Hours: Laboratory Results - last 24 hr 05/16/19 05/17/19 05/17/19 Range/Units 17:28 05:45 05:45 WBC 4.31 (4.0-11.0) K/uL RBC 2.96 L (4.50-5.90) M/uL Hgb 8.9 L (13.0-17.0) g/dL Hct 28.3 L (38.0-50.0) % MCV 95.6 (80.0-98.0) fL MCH 30.1 (27.0-32.0) pg MCHC 31.4 (31.0-37.0) g/dL RDW Std Deviation 52.9 (28.0-62.0) fl RDW Coeff of Theresa 15 (11.0-15.0) % Plt Count 231 (150-400) K/uL MPV 9.00 (7.40-12.00) fL Neut % (Auto) 58.0 (48.0-80.0) % Lymph % (Auto) 26.7 (16.0-40.0) % [place] % (Auto) 12.5 (0.0-15.0) % Eos % (Auto) 2.6 (0.0-7.0) % Baso % (Auto) 0.2 (0.0-1.5) % Neut # (Auto) 2.5 (1.4-5.7) K/uL Lymph # (Auto) 1.2 (0.6-2.4) K/uL [place] # (Auto) 0.5 (0.0-0.8) K/uL Eos # (Auto) 0.1 (0.0-0.7) K/uL Baso # (Auto) 0.0 (0.0-0.1) K/uL Nucleated RBC % 0.0 /100WBC Nucleated RBCs # 0 K/uL POC Glucose 167 H (60-110) mg/dL Phosphorus 3.4 (2.6-4.7) mg/dL Magnesium 1.7 L (1.8-2.4) mg/dL 05/17/19 05/17/19 Range/Units 06:14 11:37 WBC (4.0-11.0) K/uL RBC (4.50-5.90) M/uL Hgb (13.0-17.0) g/dL Hct (38.0-50.0) % MCV (80.0-98.0) fL MCH (27.0-32.0) pg MCHC (31.0-37.0) g/dL RDW Std Deviation (28.0-62.0) fl RDW Coeff of Theresa (11.0-15.0) % Plt Count (150-400) K/uL MPV (7.40-12.00) fL Neut % (Auto) (48.0-80.0) % Lymph % (Auto) (16.0-40.0) % [place] % (Auto) (0.0-15.0) % Eos % (Auto) (0.0-7.0) % Baso % (Auto) (0.0-1.5) % Neut # (Auto) (1.4-5.7) K/uL Lymph # (Auto) (0.6-2.4) K/uL [place] # (Auto) (0.0-0.8) K/uL Eos # (Auto) (0.0-0.7) K/uL Baso # (Auto) (0.0-0.1) K/uL Nucleated RBC % /100WBC Nucleated RBCs # K/uL POC Glucose 173 H 148 H (60-110) mg/dL Phosphorus (2.6-4.7) mg/dL Magnesium (1.8-2.4) mg/dL Med Orders - Current: Current Medications Docusate Sodium (Colace) 100 mg PO BID PRN PRN Reason: Constipation Furosemide (Lasix) 40 mg PO DAILY [facility] Last Admin: 05/17/19 09:02 Dose: 40 mg Insulin Aspart (Novolog) 0 unit SUBCUT TIDAC [facility]; Protocol Last Admin: 05/17/19 06:52 Dose: 1 units Metoprolol Tartrate (Lopressor) 100 mg PO BID [facility] Last Admin: 05/17/19 08:52 Dose: 100 mg Multivitamins/Minerals (Prosight) 1 tab PO BID [facility] Last Admin: 05/17/19 08:53 Dose: 1 tab Nystatin (Nystatin Crm) 1 gm TOP BID [facility] Last Admin: 05/17/19 08:53 Dose: Not Given Pantoprazole Sodium (Protonix) 40 mg PO BIDAC [facility] Last Admin: 05/17/19 06:50 Dose: 40 mg Tetrahydrozoline Hcl ([Visine]) 1 each EYERT QID PRN PRN Reason: Dry Eyes Polyethylene Glycol (Miralax) 17 gm PO DAILY PRN PRN Reason: constipation Last Admin: 05/13/19 13:50 Dose: 17 gm Discontinued Medications Apixaban (Eliquis) 5 mg PO BID [facility] Last Admin: 05/08/19 08:10 Dose: 5 mg Furosemide (Lasix) 20 mg IVPUSH ONETIME ONE Stop: 05/07/19 19:02 Last Admin: 05/07/19 19:06 Dose: 20 mg Furosemide (Lasix) Confirm Administered Dose 40 mg .ROUTE .STK-MED ONE Stop: 05/07/19 19:04 Last Admin: 05/07/19 20:53 Dose: Not Given Furosemide (Lasix) 40 mg IVPUSH BID [facility] Last Admin: 05/08/19 20:34 Dose: 40 mg Furosemide (Lasix) 40 mg IVPUSH BIDDIURETIC [facility] Last Admin: 05/11/19 09:24 Dose: 40 mg Furosemide (Lasix) 40 mg IV ONETIME ONE Stop: 05/15/19 10:46 Last Admin: 05/15/19 11:00 Dose: 40 mg Furosemide (Lasix) 40 mg IVPUSH NOW ONE Stop: 05/17/19 09:59 Last Admin: 05/17/19 10:35 Dose: 40 mg Sodium Chloride (Normal Saline) 1,000 mls @ 125 mls/hr IV STAT JACOB Sodium Chloride (Normal Saline) 1,000 mls @ 125 mls/hr IV ASDIRECTED [facility] Sodium Chloride (Normal Saline) 1,000 mls @ 125 mls/hr IV .Bolus ONE Stop: 05/08/19 02:08 Last Admin: 05/07/19 18:25 Dose: 125 mls/hr Pantoprazole Sodium 40 mg/ (Sodium Chloride) 10 mls @ 300 mls/hr IV Q12H [facility] Last Admin: 05/11/19 21:30 Dose: 300 mls/hr Magnesium Sulfate 2 gm/ Premix 50 mls @ 25 mls/hr IV ONETIME ONE Stop: 05/10/19 11:47 Last Admin: 05/10/19 10:40 Dose: 25 mls/hr Magnesium Sulfate 2 gm/ Premix 50 mls @ 25 mls/hr IV ONETIME ONE Stop: 05/17/19 11:01 Last Admin: 05/17/19 09:43 Dose: 25 mls/hr Metoprolol Tartrate (Lopressor) 100 mg PO BID [facility] Last Admin: 05/12/19 09:09 Dose: 100 mg Metoprolol Tartrate (Lopressor) 50 mg PO ONETIME ONE Stop: 05/12/19 20:46 Last Admin: 05/12/19 20:59 Dose: 50 mg Potassium Chloride (Klor-Con M20) 40 meq PO ONETIME ONE Stop: 05/12/19 07:24 Last Admin: 05/12/19 08:00 Dose: 40 meq - Exam General: Alert, Oriented, Cooperative HEENT: Pupils Equal, Pupils Reactive Neck: Supple Lungs: Clear to Auscultation, Normal Respiratory Effort, Decreased Breath Sounds (Bilateral bases) Cardiovascular: Regular Rate, Regular Rhythm GI/Abdominal Exam: Soft, Non-Tender, No Distention, No Mass Consult PN Assessment/Plan Procedures: Procedures AIRWAY INHALATION TREATMENT (07/30/18) ASSAY OF AMYLASE (07/30/18) ASSAY OF LACTIC ACID (04/29/19) ASSAY OF LIPASE (07/30/18) ASSAY OF NATRIURETIC PEPTIDE (04/29/19) ASSAY OF TROPONIN QUANT (04/29/19) ASSAY THYROID STIM HORMONE (04/29/19) BLOOD CULTURE FOR BACTERIA (04/29/19) BLOOD GASES ANY COMBINATION (04/29/19) COLONOSCOPY AND BIOPSY (03/11/14) COLONOSCOPY W/LESION REMOVAL (03/11/14) COMPLETE CBC AUTOMATED (03/30/14) COMPLETE CBC W/AUTO DIFF WBC (04/29/19) COMPREHEN METABOLIC PANEL (04/29/19) CONTRAST X-RAY ESOPHAGUS (12/15/17) CT ABD & PELVIS W/O CONTRAST (07/30/18) CT ANGIOGRAPHY CHEST (04/29/19) CT HEAD/BRAIN W/O DYE (09/15/15) CULTURE SCREEN ONLY (07/30/18) DESTRUCT PREMALG LES 2-14 (03/30/14) DESTRUCT PREMALG LESION (03/30/14) ELECTROCARDIOGRAM TRACING (04/29/19) EMERGENCY DEPT VISIT (04/29/19) EMERGENCY DEPT VISIT (11/29/17) EMERGENCY DEPT VISIT (09/15/15) EMERGENCY DEPT VISIT (04/12/15) EXTRACRANIAL BILAT STUDY (04/12/15) GLUCOSE BLOOD TEST (04/29/19) GLYCOSYLATED HEMOGLOBIN TEST (04/29/19) INFLUENZA ASSAY W/OPTIC (04/29/19) LIPID PANEL (04/29/19) METABOLIC PANEL TOTAL CA (09/15/13) MRI BRAIN STEM W/O & W/DYE (04/12/15) NEUROMUSCULAR REEDUCATION (05/25/15) OFFICE/OUTPATIENT VISIT EST (10/19/15) OFFICE/OUTPATIENT VISIT EST (03/17/14) OFFICE/OUTPATIENT VISIT EST (09/15/13) OFFICE/OUTPATIENT VISIT NEW (06/21/15) PROTHROMBIN TIME (04/29/19) PT EVAL LOW COMPLEX 20 MIN (12/25/17) PT EVALUATION (05/08/15) REPAIR EYELID DEFECT (02/05/17) ROUTINE VENIPUNCTURE (04/29/19) STREP A ASSAY W/OPTIC (07/30/18) THER/PROPH/DIAG INJ IV PUSH (04/29/19) THER/PROPH/DIAG INJ SC/IM (04/29/19) THERAPEUTIC EXERCISES (12/25/17) TISSUE EXAM BY PATHOLOGIST (03/11/14) TTE W/DOPPLER COMPLETE (04/29/19) UR ALBUMIN SEMIQUANTITATIVE (03/30/14) URINALYSIS AUTO W/SCOPE (04/29/19) URINE CULTURE/COLONY COUNT (04/29/19) WITHDRAWAL OF ARTERIAL BLOOD (04/29/19) X-RAY EXAM CHEST 1 VIEW (04/29/19) X-RAY EXAM L-S SPINE 2/3 VWS (11/29/17) (1) Fecal occult blood test positive SNOMED Code(s): 69057032 Code(s): R19.5 - OTHER FECAL ABNORMALITIES Current Visit: Yes Problem List Initiated/Reviewed/Updated: Yes My Orders Last 24 Hours: My Active Orders 05/17/19 11:53 Communication Order [RC] PRN 05/17/19 12:00 Bisacodyl [Dulcolax] 20 mg PO ASDIRECTED 05/17/19 14:00 Polyethylene Glycol 3350 [MiraLAX] 119 gm PO BID 05/17/19 Breakfast Clear Liquid Diet [DIET] 05/18/19 Breakfast NPO Now [Nothing per Oral Now Diet] [DIET] Plan: The patient and I discussed the need for a diagnostic EGD and colonoscopy. I explained the procedure, expected perioperative course and risks including bleeding infection or damage to surrounding structures. He verbalized understanding and wishes to proceed. NPO at midnight. Bowel prep has been ordered.
[2019-05-17] MEDS ORDERED: Polyethylene Glycol 3350 Powder 17 GM Packet PO SCH ×2 (14:00→18:00)
[2019-05-18 06:35] LABS: BLOOD UREA NITROGEN,BUN 10 mg/dL (7.0-18.0); CARBON DIOXIDE,CO2 29.7 mmol/L (21.0-32.0); CHLORIDE,CL 106 mmol/L (98-107); GLUCOSE RANDOM 129 mg/dL (74-106); POTASSIUM,K 3.9 mmol/L (3.5-5.1); SODIUM,NA 142 mmol/L (136-148)
[2019-05-18] MEDS: Pantoprazole 40 MG Tab.CR PO SCH ×2 (06:44→18:31)
[2019-05-18] MEDS: Insulin Aspart 100 Units/ML 3 ML Pen SUBCUT SCH ×3 (06:46→18:33)
[2019-05-18] MEDS ORDERED: fentaNYL 100 MCG/2 ML SDV ONE (07:05)
[2019-05-18] MEDS ORDERED: Propofol 200 MG/20 ML SDV ONE (07:05)
[2019-05-18] MEDS ORDERED: Lidocaine 2% 5 ML SDV ONE (07:05)
[2019-05-18] MEDS: Metoprolol Tartrate 50 MG Tab PO SCH ×2 (08:28→20:23)
[2019-05-18] MEDS: Beta-Carotene (Vitamin A) w/Vitamin C & E plus Minerals Tab PO SCH ×2 (08:28→20:23)
[2019-05-18] MEDS: Furosemide 40 MG Tab PO SCH (08:28)
[2019-05-18] MEDS: Nystatin Crm 30 GM Tube TOP SCH ×2 (08:31→20:27)
--- NOTE | 2019-05-18 08:42 | PCM.PN ---
- General Info Date of Service: 05/18/19 Subjective Update: No complaints at bedside this morning. Reports having bowel movement this morning that was very thin but non-bloody. Tolerating PO well. - Patient Data Vitals - Most Recent: Last Vital Signs Temp 98.1 F 05/18/19 07:53 Pulse 82 05/18/19 08:28 Resp 18 05/18/19 07:53 BP 128/56 L 05/18/19 08:28 Pulse Ox 95 05/18/19 07:53 Weight - Most Recent: 159 lb 0.663 oz I&O - Last 24 Hours: Intake & Output 05/17/19 05/18/19 05/18/19 22:59 06:59 14:59 Intake Total 1500 740 Output Total 502 1200 Balance 998 -460 Lab Results Last 24 Hours: Laboratory Results - last 24 hr 05/17/19 05/17/19 05/18/19 Range/Units 11:37 16:09 05:44 WBC 3.69 L (4.0-11.0) K/uL RBC 2.87 L (4.50-5.90) M/uL Hgb 9.1 L (13.0-17.0) g/dL Hct 27.6 L (38.0-50.0) % MCV 96.2 (80.0-98.0) fL MCH 31.7 (27.0-32.0) pg MCHC 33.0 (31.0-37.0) g/dL RDW Std Deviation 48.2 (28.0-62.0) fl RDW Coeff of Theresa 14 (11.0-15.0) % Plt Count 257 (150-400) K/uL MPV 8.90 (7.40-12.00) fL Neut % (Auto) 51.2 (48.0-80.0) % Lymph % (Auto) 32.0 (16.0-40.0) % [place] % (Auto) 13.0 (0.0-15.0) % Eos % (Auto) 3.5 (0.0-7.0) % Baso % (Auto) 0.3 (0.0-1.5) % Neut # (Auto) 1.9 (1.4-5.7) K/uL Lymph # (Auto) 1.2 (0.6-2.4) K/uL [place] # (Auto) 0.5 (0.0-0.8) K/uL Eos # (Auto) 0.1 (0.0-0.7) K/uL Baso # (Auto) 0.0 (0.0-0.1) K/uL Sodium (136-148) mmol/L Potassium (3.5-5.1) mmol/L Chloride (98-107) mmol/L Carbon Dioxide (21.0-32.0) mmol/L BUN (7.0-18.0) mg/dL Creatinine (0.8-1.3) mg/dL Est Cr Clr Drug Dosing mL/min Estimated GFR (MDRD) ml/min Glucose (74-106) mg/dL POC Glucose 148 H 206 H (60-110) mg/dL Calcium (8.5-10.1) mg/dL Magnesium (1.8-2.4) mg/dL 05/18/19 05/18/19 05/18/19 Range/Units 05:44 05:44 06:10 WBC (4.0-11.0) K/uL RBC (4.50-5.90) M/uL Hgb (13.0-17.0) g/dL Hct (38.0-50.0) % MCV (80.0-98.0) fL MCH (27.0-32.0) pg MCHC (31.0-37.0) g/dL RDW Std Deviation (28.0-62.0) fl RDW Coeff of Theresa (11.0-15.0) % Plt Count (150-400) K/uL MPV (7.40-12.00) fL Neut % (Auto) (48.0-80.0) % Lymph % (Auto) (16.0-40.0) % [place] % (Auto) (0.0-15.0) % Eos % (Auto) (0.0-7.0) % Baso % (Auto) (0.0-1.5) % Neut # (Auto) (1.4-5.7) K/uL Lymph # (Auto) (0.6-2.4) K/uL [place] # (Auto) (0.0-0.8) K/uL Eos # (Auto) (0.0-0.7) K/uL Baso # (Auto) (0.0-0.1) K/uL Sodium 142 (136-148) mmol/L Potassium 3.9 (3.5-5.1) mmol/L Chloride 106 (98-107) mmol/L Carbon Dioxide 29.7 (21.0-32.0) mmol/L BUN 10 (7.0-18.0) mg/dL Creatinine 1.0 (0.8-1.3) mg/dL Est Cr Clr Drug Dosing 55.10 mL/min Estimated GFR (MDRD) > 60.0 ml/min Glucose 129 H (74-106) mg/dL POC Glucose 128 H (60-110) mg/dL Calcium 8.2 L (8.5-10.1) mg/dL Magnesium 1.8 (1.8-2.4) mg/dL Med Orders - Current: Current Medications Docusate Sodium (Colace) 100 mg PO BID PRN PRN Reason: Constipation Furosemide (Lasix) 40 mg PO DAILY [facility] Last Admin: 05/18/19 08:28 Dose: 40 mg Insulin Aspart (Novolog) 0 unit SUBCUT TIDAC [facility]; Protocol Last Admin: 05/18/19 06:46 Dose: Not Given Metoprolol Tartrate (Lopressor) 100 mg PO BID [facility] Last Admin: 05/18/19 08:28 Dose: 100 mg Multivitamins/Minerals (Prosight) 1 tab PO BID [facility] Last Admin: 05/18/19 08:28 Dose: 1 tab Nystatin (Nystatin Crm) 1 gm TOP BID [facility] Last Admin: 05/18/19 08:31 Dose: Not Given Pantoprazole Sodium (Protonix) 40 mg PO BIDAC [facility] Last Admin: 05/18/19 06:44 Dose: 40 mg Tetrahydrozoline Hcl ([Visine]) 1 each EYERT QID PRN PRN Reason: Dry Eyes Polyethylene Glycol (Miralax) 17 gm PO DAILY PRN PRN Reason: constipation Last Admin: 05/13/19 13:50 Dose: 17 gm Discontinued Medications Apixaban (Eliquis) 5 mg PO BID [facility] Last Admin: 05/08/19 08:10 Dose: 5 mg Bisacodyl (Dulcolax) 10 mg PO 05/17/19@1200,1800 [facility] Stop: 05/17/19 18:01 Last Admin: 05/17/19 12:47 Dose: Not Given Bisacodyl (Dulcolax) 20 mg PO 05/17/19@1245 [facility] Stop: 05/17/19 12:46 Last Admin: 05/17/19 12:46 Dose: 20 mg Fentanyl (Sublimaze) Confirm Administered Dose 100 mcg .ROUTE .STK-MED ONE Stop: 05/18/19 07:06 Furosemide (Lasix) 20 mg IVPUSH ONETIME ONE Stop: 05/07/19 19:02 Last Admin: 05/07/19 19:06 Dose: 20 mg Furosemide (Lasix) Confirm Administered Dose 40 mg .ROUTE .STK-MED ONE Stop: 05/07/19 19:04 Last Admin: 05/07/19 20:53 Dose: Not Given Furosemide (Lasix) 40 mg IVPUSH BID [facility] Last Admin: 05/08/19 20:34 Dose: 40 mg Furosemide (Lasix) 40 mg IVPUSH BIDDIURETIC [facility] Last Admin: 05/11/19 09:24 Dose: 40 mg Furosemide (Lasix) 40 mg IV ONETIME ONE Stop: 05/15/19 10:46 Last Admin: 05/15/19 11:00 Dose: 40 mg Furosemide (Lasix) 40 mg IVPUSH NOW ONE Stop: 05/17/19 09:59 Last Admin: 05/17/19 10:35 Dose: 40 mg Sodium Chloride (Normal Saline) 1,000 mls @ 125 mls/hr IV STAT [facility] Sodium Chloride (Normal Saline) 1,000 mls @ 125 mls/hr IV ASDIRECTED [facility] Sodium Chloride (Normal Saline) 1,000 mls @ 125 mls/hr IV .Bolus ONE Stop: 05/08/19 02:08 Last Admin: 05/07/19 18:25 Dose: 125 mls/hr Pantoprazole Sodium 40 mg/ (Sodium Chloride) 10 mls @ 300 mls/hr IV Q12H [facility] Last Admin: 05/11/19 21:30 Dose: 300 mls/hr Magnesium Sulfate 2 gm/ Premix 50 mls @ 25 mls/hr IV ONETIME ONE Stop: 05/10/19 11:47 Last Admin: 05/10/19 10:40 Dose: 25 mls/hr Magnesium Sulfate 2 gm/ Premix 50 mls @ 25 mls/hr IV ONETIME ONE Stop: 05/17/19 11:01 Last Admin: 05/17/19 09:43 Dose: 25 mls/hr Lidocaine (Xylocaine-Mpf 2%) Confirm Administered Dose 5 ml .ROUTE .STK-MED ONE Stop: 05/18/19 07:06 Metoprolol Tartrate (Lopressor) 100 mg PO BID [facility] Last Admin: 05/12/19 09:09 Dose: 100 mg Metoprolol Tartrate (Lopressor) 50 mg PO ONETIME ONE Stop: 05/12/19 20:46 Last Admin: 05/12/19 20:59 Dose: 50 mg Polyethylene Glycol (Miralax) 119 gm PO 05/17/19@1400 [facility] Stop: 05/17/19 14:01 Last Admin: 05/17/19 14:53 Dose: 119 gm Polyethylene Glycol (Miralax) 119 gm PO 05/17/19@1800 [facility] Stop: 05/17/19 18:01 Last Admin: 05/17/19 18:55 Dose: 119 gm Potassium Chloride (Klor-Con M20) 40 meq PO ONETIME ONE Stop: 05/12/19 07:24 Last Admin: 05/12/19 08:00 Dose: 40 meq Propofol (Diprivan 20 Ml) Confirm Administered Dose 400 mg .ROUTE .STK-MED ONE Stop: 05/18/19 07:06 - Exam General: Alert, Oriented, Cooperative, No Acute Distress Lungs: Clear to Auscultation, Normal Respiratory Effort Cardiovascular: Regular Rate, Irregular Rhythm GI/Abdominal Exam: Normal Bowel Sounds, Soft, Non-Tender, No Distention Extremities: Other (1+ edema bilaterally) - Problem List Review Problem List Initiated/Reviewed/Updated: Yes - Plan Plan:: Assessment and Plan: 1. Acute normocytic anemia secondary to GI bleed S/P transfusion of 3 units of PRBC's: EGD and colonoscopy by Dr. Luong scheduled for today. Patient has been NPO since midnight. Hemoglobin this morning was 9.1. 2. Congestive heart failure: Increase lasix to 60 md qd PO. Fluid restriction and low salt diet. 3. Afib, rate controlled: Eliquis held secondary to #1. 4. As per CM, patient accepted to [facility] on discharge.
[2019-05-18] MEDS ORDERED: Furosemide 20 MG Tab PO ONE (09:34)
--- NOTE | 2019-05-18 11:59 | PCM.PREANE ---
Preanesthetic Assessment - Anesthesia/Transfusion/Family Hx Anesthesia History: Prior Anesthesia Without Reaction Other Type of Anesthesia Reaction Comment: Denies any known problems in the past Family History of Anesthesia Reaction: No Transfusion History: No Prior Transfusion(s) Intubation History: Unknown - Physical Assessment Vital Signs: Last Vital Signs Temp 97.9 F 05/18/19 11:49 Pulse 69 05/18/19 11:49 Resp 16 05/18/19 11:49 BP 141/48 H 05/18/19 11:49 Pulse Ox 98 05/18/19 11:49 Height: 5 ft 8 in Weight: 72.14 kg ASA Class: 3 Mental Status: Alert & Oriented x3 Airway Class: Mallampati = 2 ROM/Head Extension: Full Lungs: Clear to Auscultation, Normal Respiratory Effort Cardiovascular: Regular Rate, Regular Rhythm - Lab Values: Laboratory Last Values WBC 3.69 K/uL (4.0-11.0) L 05/18/19 05:44 RBC 2.87 M/uL (4.50-5.90) L 05/18/19 05:44 Hgb 9.1 g/dL (13.0-17.0) L 05/18/19 05:44 Hct 27.6 % (38.0-50.0) L 05/18/19 05:44 MCV 96.2 fL (80.0-98.0) 05/18/19 05:44 MCH 31.7 pg (27.0-32.0) 05/18/19 05:44 MCHC 33.0 g/dL (31.0-37.0) 05/18/19 05:44 RDW Std Deviation 48.2 fl (28.0-62.0) 05/18/19 05:44 RDW Coeff of Theresa 14 % (11.0-15.0) 05/18/19 05:44 Plt Count 257 K/uL (150-400) 05/18/19 05:44 MPV 8.90 fL (7.40-12.00) 05/18/19 05:44 Neut % (Auto) 51.2 % (48.0-80.0) 05/18/19 05:44 Lymph % (Auto) 32.0 % (16.0-40.0) 05/18/19 05:44 [place] % (Auto) 13.0 % (0.0-15.0) 05/18/19 05:44 Eos % (Auto) 3.5 % (0.0-7.0) 05/18/19 05:44 Baso % (Auto) 0.3 % (0.0-1.5) 05/18/19 05:44 Neut # (Auto) 1.9 K/uL (1.4-5.7) 05/18/19 05:44 Lymph # (Auto) 1.2 K/uL (0.6-2.4) 05/18/19 05:44 [place] # (Auto) 0.5 K/uL (0.0-0.8) 05/18/19 05:44 Eos # (Auto) 0.1 K/uL (0.0-0.7) 05/18/19 05:44 Baso # (Auto) 0.0 K/uL (0.0-0.1) 05/18/19 05:44 Nucleated RBC % 0.0 /100WBC 05/17/19 05:45 Nucleated RBCs # 0 K/uL 05/17/19 05:45 INR 1.16 05/07/19 17:40 Sodium 142 mmol/L (136-148) 05/18/19 05:44 Potassium 3.9 mmol/L (3.5-5.1) 05/18/19 05:44 Chloride 106 mmol/L (98-107) 05/18/19 05:44 Carbon Dioxide 29.7 mmol/L (21.0-32.0) 05/18/19 05:44 BUN 10 mg/dL (7.0-18.0) 05/18/19 05:44 Creatinine 1.0 mg/dL (0.8-1.3) 05/18/19 05:44 Est Cr Clr Drug Dosing 55.10 mL/min 05/18/19 05:44 Estimated GFR (MDRD) > 60.0 ml/min 05/18/19 05:44 Glucose 129 mg/dL (74-106) H 05/18/19 05:44 POC Glucose 160 mg/dL (60-110) H 05/18/19 10:47 Calcium 8.2 mg/dL (8.5-10.1) L 05/18/19 05:44 Phosphorus 3.4 mg/dL (2.6-4.7) 05/17/19 05:45 Magnesium 1.8 mg/dL (1.8-2.4) 05/18/19 05:44 Total Bilirubin 0.3 mg/dL (0.2-1.0) 05/16/19 06:00 AST 15 IU/L (15-37) 05/16/19 06:00 ALT 29 IU/L (14-63) 05/16/19 06:00 Alkaline Phosphatase 90 U/L (46-116) 05/16/19 06:00 Troponin I < 0.050 ng/mL (0.000-0.056) 05/07/19 17:40 B-Natriuretic Peptide 1758 PG/ML (<100) H 05/07/19 17:40 Total Protein 5.3 g/dL (6.4-8.2) L 05/16/19 06:00 Albumin 2.6 g/dL (3.4-5.0) L 05/16/19 06:00 Globulin 2.7 g/dL (2.6-4.0) 05/16/19 06:00 Albumin/Globulin Ratio 1.0 (0.9-1.6) 05/16/19 06:00 Urine Color YELLOW 05/14/19 14:10 Urine Appearance CLEAR 05/14/19 14:10 Urine pH 6.5 (5.0-8.0) 05/14/19 14:10 Ur Specific [place] 1.015 (1.001-1.035) 05/14/19 14:10 Urine Protein NEGATIVE mg/dL (NEGATIVE) 05/14/19 14:10 Urine Glucose (UA) 100 mg/dL (NEGATIVE) H 05/14/19 14:10 Urine Ketones NEGATIVE mg/dL (NEGATIVE) 05/14/19 14:10 Urine Occult Blood NEGATIVE (NEGATIVE) 05/14/19 14:10 Urine Nitrite NEGATIVE (NEGATIVE) 05/14/19 14:10 Urine Bilirubin NEGATIVE (NEGATIVE) 05/14/19 14:10 Urine Urobilinogen 0.2 EU/dL (<2.0) 05/14/19 14:10 Ur Leukocyte Esterase NEGATIVE (NEGATIVE) 05/14/19 14:10 Urine RBC 0-2 (0-2/HPF) 05/07/19 21:30 Urine WBC 2-5 (0-5/HPF) 05/07/19 21:30 Ur Epithelial Cells RARE (NONE-FEW) 05/07/19 21:30 Urine Bacteria RARE (NEGATIVE) 05/07/19 21:30 Blood Type A POSITIVE 05/14/19 09:40 Antibody Screen NEGATIVE 05/14/19 09:40 Crossmatch See Detail 05/14/19 09:40 - Allergies Allergies/Adverse Reactions: Allergies Allergy/AdvReac Type Severity Reaction Status Date / Time Penicillins Allergy Rash Verified 05/07/19 20:51 Adhesives Allergy Hives Uncoded 05/07/19 20:51 Jeruselum Artichoke Allergy Hives Uncoded 05/07/19 20:51 Leachy Nuts Allergy Hives Uncoded 05/07/19 20:51 Kershaw Seeds Allergy Hives Uncoded 05/07/19 20:51 - Blood Blood Available: No - Acknowledgements Pt an Appropriate Candidate for the Planned Anesthesia: Yes Alternatives and Risks of Anesthesia Discussed w Pt/Guardian: Yes Pt/Guardian Understands and Agrees with Anesthesia Plan: Yes Additional Comments: PMH: anemia, HFpEF, afib rate controlled, PE- dx 1 mo ago, on elliquis, DM2, DEERING , macular degeneration, HTN, s/P AMI, 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 PLAN: tiva PreAnesthesia Questionnaire HEENT History: Reports: Hard of Hearing, Impaired Vision, Macular Degeneration, Other (See Below) Other HEENT History: 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16, wears glasses , tracey hearing aids Cardiovascular History: Reports: Afib, High Cholesterol, Hypertension, HI Respiratory History: Reports: None Gastrointestinal History: Reports: Other (See Below) Other Gastrointestinal History: hernia Genitourinary History: Reports: Prostate Disorder Musculoskeletal History: Reports: Other (See Below) Other Musculoskeletal History: fx fingers Neurological History: Reports: TIA, Other (See Below) Other Neuro History: unsteady gait, TIA March,-weaker on left side, also memomy and walk affected Psychiatric History: Reports: Depression Endocrine/Metabolic History: Reports: Diabetes, Type II Hematologic History: Reports: Anemia - Infectious Disease History Infectious Disease History: Reports: Chicken Pox, Mumps - Past Surgical History HEENT Surgical History: Reports: Cataract Surgery, Eye Surgery, Tonsillectomy Other HEENT Surgeries/Procedures: prostetic left eye, 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, GI Surgical History: Reports: Hernia, Inguinal Other GI Surgeries/Procedures: inguinal hernia repair x2 Male Surgical History: Reports: TURP-Transurethral Resection of Prostate - SUBSTANCE USE Smoking Status *Q: Former Smoker Tobacco Use Within Last Twelve Months: No Recreational Drug Use History: No - HOME MEDS Home Medications: Home Meds Losartan Potassium 100 mg PO DAILY 02/23/14 [History] Metoprolol Tartrate 100 mg PO BID 02/23/14 [History] atorvaSTATin Calcium [Atorvastatin Calcium] 40 mg PO BEDTIME 02/23/14 [History] metFORMIN [Glucophage] 1,000 mg PO BID 02/23/14 [History] Cholecalciferol (Vitamin D3) [Vitamin D3] 2,000 units PO DAILY 01/30/17 [History ] SitaGLIPtin [Januvia] 100 mg PO DAILY 01/30/17 [History] Tetrahydrozoline HCl [Visine] 1 drop EYERT ASDIRECTED PRN 01/30/17 [History] Vit A/Vit C/Vit E/Zinc/Copper [Preservision] 1 tab PO BID 07/30/18 [History] Apixaban [Eliquis] 5 mg PO BID 30 Days #60 tablet 05/01/19 [Rx] Aspirin [Adult Low Dose Aspirin EC] 81 mg PO DAILY #30 tablet. 05/01/19 [Rx] Furosemide [Lasix] 40 mg PO DAILY 30 Days #60 tablet 05/01/19 [Rx] - CURRENT (IN HOUSE) MEDS Current Meds: Current Medications Docusate Sodium (Colace) 100 mg PO BID PRN PRN Reason: Constipation Furosemide (Lasix) 60 mg PO DAILY [facility] Insulin Aspart (Novolog) 0 unit SUBCUT TIDAC [facility]; Protocol Last Admin: 05/18/19 06:46 Dose: Not Given Metoprolol Tartrate (Lopressor) 100 mg PO BID [facility] Last Admin: 05/18/19 08:28 Dose: 100 mg Multivitamins/Minerals (Prosight) 1 tab PO BID [facility] Last Admin: 05/18/19 08:28 Dose: 1 tab Nystatin (Nystatin Crm) 1 gm TOP BID [facility] Last Admin: 05/18/19 08:31 Dose: Not Given [facility]op[facility] Last Admin: 05/18/19 06:44 Dose: 40 mg Tetrahydrozoline Hcl ([Visine]) 1 each EYERT QID PRN PRN Reason: Dry Eyes Polyethylene Glycol (Miralax) 17 gm PO DAILY PRN PRN Reason: constipation Last Admin: 05/13/19 13:50 Dose: 17 gm Discontinued Medications Apixaban (Eliquis) 5 mg PO BID [facility] Last Admin: 05/08/19 08:10 Dose: 5 mg Bisacodyl (Dulcolax) 10 mg PO 05/17/19@1200,1800 [facility] Stop: 05/17/19 18:01 Last Admin: 05/17/19 12:47 Dose: Not Given Bisacodyl (Dulcolax) 20 mg PO 05/17/19@1245 [facility] Stop: 05/17/19 12:46 Last Admin: 05/17/19 12:46 Dose: 20 mg Fentanyl (Sublimaze) Confirm Administered Dose 100 mcg .ROUTE .STK-MED ONE Stop: 05/18/19 07:06 Furosemide (Lasix) 20 mg IVPUSH ONETIME ONE Stop: 05/07/19 19:02 Last Admin: 05/07/19 19:06 Dose: 20 mg Furosemide (Lasix) Confirm Administered Dose 40 mg .ROUTE .STK-MED ONE Stop: 05/07/19 19:04 Last Admin: 05/07/19 20:53 Dose: Not Given Furosemide (Lasix) 40 mg IVPUSH BID [facility] Last Admin: 05/08/19 20:34 Dose: 40 mg Furosemide (Lasix) 40 mg IVPUSH BIDDIURETIC [facility] Last Admin: 05/11/19 09:24 Dose: 40 mg Furosemide (Lasix) 40 mg PO DAILY [facility] Last Admin: 05/18/19 08:28 Dose: 40 mg Furosemide (Lasix) 40 mg IV ONETIME ONE Stop: 05/15/19 10:46 Last Admin: 05/15/19 11:00 Dose: 40 mg Furosemide (Lasix) 40 mg IVPUSH NOW ONE Stop: 05/17/19 09:59 Last Admin: 05/17/19 10:35 Dose: 40 mg Furosemide (Lasix) 20 mg PO ONETIME ONE Stop: 05/18/19 09:35 Last Admin: 05/18/19 10:14 Dose: 20 mg Sodium Chloride (Normal Saline) 1,000 mls @ 125 mls/hr IV STAT [facility] Sodium Chloride (Normal Saline) 1,000 mls @ 125 mls/hr IV ASDIRECTED [facility] Sodium Chloride (Normal Saline) 1,000 mls @ 125 mls/hr IV .Bolus ONE Stop: 05/08/19 02:08 Last Admin: 05/07/19 18:25 Dose: 125 mls/hr Pantoprazole Sodium 40 mg/ (Sodium Chloride) 10 mls @ 300 mls/hr IV Q12H [facility] Last Admin: 05/11/19 21:30 Dose: 300 mls/hr Magnesium Sulfate 2 gm/ Premix 50 mls @ 25 mls/hr IV ONETIME ONE Stop: 05/10/19 11:47 Last Admin: 05/10/19 10:40 Dose: 25 mls/hr Magnesium Sulfate 2 gm/ Premix 50 mls @ 25 mls/hr IV ONETIME ONE Stop: 05/17/19 11:01 Last Admin: 05/17/19 09:43 Dose: 25 mls/hr Lidocaine (Xylocaine-Mpf 2%) Confirm Administered Dose 5 ml .ROUTE .STK-MED ONE Stop: 05/18/19 07:06 Metoprolol Tartrate (Lopressor) 100 mg PO BID [facility] Last Admin: 05/12/19 09:09 Dose: 100 mg Metoprolol Tartrate (Lopressor) 50 mg PO ONETIME ONE Stop: 05/12/19 20:46 Last Admin: 05/12/19 20:59 Dose: 50 mg Polyethylene Glycol (Miralax) 119 gm PO 05/17/19@1400 [facility] Stop: 05/17/19 14:01 Last Admin: 05/17/19 14:53 Dose: 119 gm Polyethylene Glycol (Miralax) 119 gm PO 05/17/19@1800 [facility] Stop: 05/17/19 18:01 Last Admin: 05/17/19 18:55 Dose: 119 gm Potassium Chloride (Klor-Con M20) 40 meq PO ONETIME ONE Stop: 05/12/19 07:24 Last Admin: 05/12/19 08:00 Dose: 40 meq Propofol (Diprivan 20 Ml) Confirm Administered Dose 400 mg .ROUTE .STK-MED ONE Stop: 05/18/19 07:06
--- NOTE | 2019-05-18 13:28 | PCM.OPNOTE ---
- General Post-Op/Procedure Note Date of Surgery/Procedure: 05/18/19 Operative Procedure(s): Diagnostic EGD and colonoscopy with biopsies and polypectomies Findings: Stress gastritis of body of stomach with stigmata of recent bleed. Esophagitis without bleeding or ulcers. 3 cecal polyps. Ascending colon polyps. Splenic flexure polyp. Sigmoid colon polyp. Diverticulosis Pre Op Diagnosis: GI bleed Post-Op Diagnosis: Diverticulosis. Stress gastritis. Esophagitis. Cecal polyp, ascending colon polyp, splenic flexure polyp, sigmoid colon polyp Anesthesia Technique: [facility] [place] Surgeon: Shira Luong Condition: Stable Free Text/Narrative:: Intake & Output 05/17/19 05/18/19 05/18/19 22:59 06:59 14:59 Intake Total 1500 740 Output Total 502 1200 Balance 998 -642
--- NOTE | 2019-05-18 14:08 | PCM.POSTAN ---
POST ANESTHESIA ASSESSMENT - MENTAL STATUS Mental Status: Alert, Oriented - VITAL SIGNS Vital Signs: Last Vital Signs Temp 97.9 F 05/18/19 11:49 Pulse 75 05/18/19 13:40 Resp 16 05/18/19 13:40 BP 93/48 L 05/18/19 13:40 Pulse Ox 96 05/18/19 13:40 - RESPIRATORY Respiratory Status: Respiratory Rate WNL, Airway Patent - CARDIOVASCULAR CV Status: Pulse Rate WNL, Blood Pressure Stable - GASTROINTESTINAL GI Status: No Symptoms - POST OP HYDRATION Hydration Status: Adequate & Stable
[2019-05-18] MEDS: Sucralfate Suspension 1 GM/10 ML Cup PO SCH ×2 (18:31→20:23)
[2019-05-19] MEDS: Sucralfate Suspension 1 GM/10 ML Cup PO SCH ×2 (06:44→11:48)
[2019-05-19] MEDS: Pantoprazole 40 MG Tab.CR PO SCH (06:44)
[2019-05-19 06:47] LABS: BLOOD UREA NITROGEN,BUN 12 mg/dL (7.0-18.0); CARBON DIOXIDE,CO2 29.7 mmol/L (21.0-32.0); CHLORIDE,CL 105 mmol/L (98-107); GLUCOSE RANDOM 222 mg/dL (74-106); POTASSIUM,K 4.2 mmol/L (3.5-5.1); SODIUM,NA 142 mmol/L (136-148)
[2019-05-19] MEDS: Insulin Aspart 100 Units/ML 3 ML Pen SUBCUT SCH ×2 (07:13→11:48)
[2019-05-19] MEDS ORDERED: Furosemide 20 MG Tab PO SCH (09:00)
[2019-05-19] MEDS: Metoprolol Tartrate 50 MG Tab PO SCH (09:45)
[2019-05-19] MEDS: Nystatin Crm 30 GM Tube TOP SCH (09:46)
[2019-05-19] MEDS: Beta-Carotene (Vitamin A) w/Vitamin C & E plus Minerals Tab PO SCH (09:46)
[2019-05-19 09:47] VITALS: BP 139/49; PULSE 64
--- NOTE | 2019-05-19 09:52 | PCM.DCSUM1 ---
<Ethan Ly M - Last Filed: 05/19/19 12:18> Discharge Summary - Hospital Course Free Text/Narrative:: 83-year-old male admitted for CHF exacerbation and acute normocytic anemia. He has a PMH of CHF, atrial fibrillation on Eliquis, DE, TIA and DM 2. Patient's acute CHF exacerbation was treated with IV lasix and he was diuresed appropriately. He was then switched to PO lasix 60 mg daily. Patient's hemoglobin was noted to be steadily dropping through the course of his hospitalization. He is s/p transfusion of 3 units of PRBC's in total during the course of his hospitalization. His Eliquis was held as a GI bleed was suspected. General surgeon Dr. Luong was consulted who did an EGD and colonoscopy. The study showed stress gastritis with multiple ulcers and stigmata of recent bleed in stomach. Multiple polyps throughout colon were also removed. Patient's hemoglobin has been stable for the past few days and was 9.5 on day of discharge. Per general surgery, patient discharged on protonix PO BID and carafate TID. Patient to follow-up with Dr. Luong in 2 weeks. Furthermore, patient's Eliquis was held on discharge and will need to be restarted at discretion of PCP or interior wirer. His atrial fibrillation has been rate controlled throughout his hospitalization. Patient will require outpatient follow-up visit with PCP and interior wirer. Patient discharged to [facility]. Will require PT/OT/ST. - Discharge Data Discharge Date: 05/19/19 Discharge Disposition: DC/Tfer to SNF 03 Condition: Stable - Referral to Home Health Primary Care Physician: PCP Unobtainable - Patient Summary/Data Operative Procedure(s) Performed: Diagnostic EGD and colonoscopy with biopsies and polypectomies Consults: Consultations 05/11/19 11:45 Consult to Physical Therapy [PT Evaluation and Treatment] [CONS] Routine 05/11/19 12:15 Consult to Physician [CONS] Stat - Patient Instructions Diet: Heart Healthy Diet, Low Sodium, Fluid Restriction, Diabetic Diet Activity: As Tolerated Notify Provider of: Fever, Increased Pain, Swelling and Redness, Drainage, Nausea and/or Vomiting Other/Special Instructions: Will require PT/OT/ST. - Discharge Plan *PRESCRIPTION DRUG MONITORING PROGRAM REVIEWED*: Not Applicable *COPY OF PRESCRIPTION DRUG MONITORING REPORT IN PATIENT COLIN: Not Applicable Prescriptions/Med Rec: Furosemide [Lasix] 60 mg PO DAILY 30 Days tablet Furosemide 60 mg PO DAILY 30 Days #90 tablet Pantoprazole [ProTONIX] 40 mg PO BIDAC 30 Days #60 tab.cr Sucralfate [Carafate] 1 gm PO QIDACANDBED 30 Days #120 cup Home Medications: Home Meds Losartan Potassium 100 mg PO DAILY 02/23/14 [History] Metoprolol Tartrate 100 mg PO BID 02/23/14 [History] atorvaSTATin Calcium [Atorvastatin Calcium] 40 mg PO BEDTIME 02/23/14 [History] metFORMIN [Glucophage] 1,000 mg PO BID 02/23/14 [History] Cholecalciferol (Vitamin D3) [Vitamin D3] 2,000 units PO DAILY 01/30/17 [History ] SitaGLIPtin [Januvia] 100 mg PO DAILY 01/30/17 [History] Tetrahydrozoline HCl [Visine] 1 drop EYERT ASDIRECTED PRN 01/30/17 [History] Vit A/Vit C/Vit E/Zinc/Copper [Preservision] 1 tab PO BID 07/30/18 [History] Furosemide 60 mg PO DAILY 30 Days #90 tablet 05/19/19 [Rx] Furosemide [Lasix] 60 mg PO DAILY 30 Days tablet 05/19/19 [Rx] Nystatin [Nystatin Crm] 1 gm TOP BID tube 05/19/19 [Rx] Pantoprazole [ProTONIX] 40 mg PO BIDAC 30 Days #60 tab.cr 05/19/19 [Rx] Sucralfate [Carafate] 1 gm PO QIDACANDBED 30 Days #120 cup 05/19/19 [Rx] Patient Handouts: Heart Failure, [id number] Referrals: Harleen Appiah MD [Physician] - 06/10/19 11:00 am Shira Luong MD [Physician] - 05/31/19 8:00 am Harry Pacheco MD [Physician] - 05/24/19 (Next [place] rounds.) - Discharge Summary/Plan Comment DC Time >30 min.: No - Patient Data Vitals - Most Recent: Last Vital Signs Temp 98.6 F 05/19/19 04:00 Pulse 64 05/19/19 09:45 Resp 18 05/19/19 04:00 BP 139/49 L 05/19/19 09:45 Pulse Ox 97 05/19/19 04:00 Weight - Most Recent: 70.488 kg I&O - Last 24 hours: Intake & Output 05/18/19 05/19/19 05/19/19 22:59 06:59 14:59 Intake Total 240 300 Balance 240 300 Lab Results - Last 24 hrs: Laboratory Results - last 24 hr 05/18/19 05/18/19 05/19/19 Range/Units 10:47 17:02 05:20 WBC 3.81 L (4.0-11.0) K/uL RBC 3.11 L (4.50-5.90) M/uL Hgb 9.5 L (13.0-17.0) g/dL Hct 29.6 L (38.0-50.0) % MCV 95.2 (80.0-98.0) fL MCH 30.5 (27.0-32.0) pg MCHC 32.1 (31.0-37.0) g/dL RDW Std Deviation 51.8 (28.0-62.0) fl RDW Coeff of Theresa 15 (11.0-15.0) % Plt Count 249 (150-400) K/uL MPV 9.10 (7.40-12.00) fL Neut % (Auto) 61.7 (48.0-80.0) % Lymph % (Auto) 26.8 (16.0-40.0) % [place] % (Auto) 9.4 (0.0-15.0) % Eos % (Auto) 1.8 (0.0-7.0) % Baso % (Auto) 0.3 (0.0-1.5) % Neut # (Auto) 2.4 (1.4-5.7) K/uL Lymph # (Auto) 1.0 (0.6-2.4) K/uL [place] # (Auto) 0.4 (0.0-0.8) K/uL Eos # (Auto) 0.1 (0.0-0.7) K/uL Baso # (Auto) 0.0 (0.0-0.1) K/uL Nucleated RBC % 0.0 /100WBC Nucleated RBCs # 0 K/uL Sodium (136-148) mmol/L Potassium (3.5-5.1) mmol/L Chloride (98-107) mmol/L Carbon Dioxide (21.0-32.0) mmol/L BUN (7.0-18.0) mg/dL Creatinine (0.8-1.3) mg/dL Est Cr Clr Drug Dosing mL/min Estimated GFR (MDRD) ml/min Glucose (74-106) mg/dL POC Glucose 160 H 123 H (60-110) mg/dL Calcium (8.5-10.1) mg/dL 05/19/19 05/19/19 Range/Units 05:20 05:51 WBC (4.0-11.0) K/uL RBC (4.50-5.90) M/uL Hgb (13.0-17.0) g/dL Hct (38.0-50.0) % MCV (80.0-98.0) fL MCH (27.0-32.0) pg MCHC (31.0-37.0) g/dL RDW Std Deviation (28.0-62.0) fl RDW Coeff of Theresa (11.0-15.0) % Plt Count (150-400) K/uL MPV (7.40-12.00) fL Neut % (Auto) (48.0-80.0) % Lymph % (Auto) (16.0-40.0) % [place] % (Auto) (0.0-15.0) % Eos % (Auto) (0.0-7.0) % Baso % (Auto) (0.0-1.5) % Neut # (Auto) (1.4-5.7) K/uL Lymph # (Auto) (0.6-2.4) K/uL [place] # (Auto) (0.0-0.8) K/uL Eos # (Auto) (0.0-0.7) K/uL Baso # (Auto) (0.0-0.1) K/uL Nucleated RBC % /100WBC Nucleated RBCs # K/uL Sodium 142 (136-148) mmol/L Potassium 4.2 (3.5-5.1) mmol/L Chloride 105 (98-107) mmol/L Carbon Dioxide 29.7 (21.0-32.0) mmol/L BUN 12 (7.0-18.0) mg/dL Creatinine 1.1 (0.8-1.3) mg/dL Est Cr Clr Drug Dosing 50.09 mL/min Estimated GFR (MDRD) > 60.0 ml/min Glucose 222 H (74-106) mg/dL POC Glucose 214 H (60-110) mg/dL Calcium 8.2 L (8.5-10.1) mg/dL ADRIANO Results - Last 24 hrs: Microbiology 05/13/19 16:00 Helicobacter pylori Antigen - Final Stool / Feces Med Orders - Current: Current Medications Docusate Sodium (Colace) 100 mg PO BID PRN PRN Reason: Constipation Furosemide (Lasix) 60 mg PO DAILY [facility] Last Admin: 05/19/19 09:44 Dose: 60 mg Insulin Aspart (Novolog) 0 unit SUBCUT TIDAC [facility]; Protocol Last Admin: 05/19/19 07:13 Dose: 2 units Metoprolol Tartrate (Lopressor) 100 mg PO BID [facility] Last Admin: 05/19/19 09:45 Dose: 100 mg Multivitamins/Minerals (Prosight) 1 tab PO BID [facility] Last Admin: 05/19/19 09:46 Dose: 1 tab Nystatin (Nystatin Crm) 1 gm TOP BID [facility] Last Admin: 05/19/19 09:46 Dose: 1 applic Pantoprazole Sodium (Protonix) 40 mg PO BIDAC [facility] Last Admin: 05/19/19 06:44 Dose: 40 mg Tetrahydrozoline Hcl ([Visine]) 1 each EYERT QID PRN PRN Reason: Dry Eyes Polyethylene Glycol (Miralax) 17 gm PO DAILY PRN PRN Reason: constipation Last Admin: 05/13/19 13:50 Dose: 17 gm Sucralfate (Carafate) 1 gm PO QIDACANDBED [facility] Last Admin: 05/19/19 06:44 Dose: 1 gm Discontinued Medications Apixaban (Eliquis) 5 mg PO BID [facility] Last Admin: 05/08/19 08:10 Dose: 5 mg Bisacodyl (Dulcolax) 10 mg PO 05/17/19@1200,1800 [facility] Stop: 05/17/19 18:01 Last Admin: 05/17/19 12:47 Dose: Not Given Bisacodyl (Dulcolax) 20 mg PO 05/17/19@1245 [facility] Stop: 05/17/19 12:46 Last Admin: 05/17/19 12:46 Dose: 20 mg Fentanyl (Sublimaze) Confirm Administered Dose 100 mcg .ROUTE .STK-MED ONE Stop: 05/18/19 07:06 Furosemide (Lasix) 20 mg IVPUSH ONETIME ONE Stop: 05/07/19 19:02 Last Admin: 05/07/19 19:06 Dose: 20 mg Furosemide (Lasix) Confirm Administered Dose 40 mg .ROUTE .STK-MED ONE Stop: 05/07/19 19:04 Last Admin: 05/07/19 20:53 Dose: Not Given Furosemide (Lasix) 40 mg IVPUSH BID [facility] Last Admin: 05/08/19 20:34 Dose: 40 mg Furosemide (Lasix) 40 mg IVPUSH BIDDIURETIC [facility] Last Admin: 05/11/19 09:24 Dose: 40 mg Furosemide (Lasix) 40 mg PO DAILY [facility] Last Admin: 05/18/19 08:28 Dose: 40 mg Furosemide (Lasix) 40 mg IV ONETIME ONE Stop: 05/15/19 10:46 Last Admin: 05/15/19 11:00 Dose: 40 mg Furosemide (Lasix) 40 mg IVPUSH NOW ONE Stop: 05/17/19 09:59 Last Admin: 05/17/19 10:35 Dose: 40 mg Furosemide (Lasix) 20 mg PO ONETIME ONE Stop: 05/18/19 09:35 Last Admin: 05/18/19 10:14 Dose: 20 mg Sodium Chloride (Normal Saline) 1,000 mls @ 125 mls/hr IV STAT JACOB Sodium Chloride (Normal Saline) 1,000 mls @ 125 mls/hr IV ASDIRECTED [facility]ACOB Sodium Chloride (Normal Saline) 1,000 mls @ 125 mls/hr IV .Bolus ONE Stop: 05/08/19 02:08 Last Admin: 05/07/19 18:25 Dose: 125 mls/hr Pantoprazole Sodium 40 mg/ (Sodium Chloride) 10 mls @ 300 mls/hr IV Q12H [facility] Last Admin: 05/11/19 21:30 Dose: 300 mls/hr Magnesium Sulfate 2 gm/ Premix 50 mls @ 25 mls/hr IV ONETIME ONE Stop: 05/10/19 11:47 Last Admin: 05/10/19 10:40 Dose: 25 mls/hr Magnesium Sulfate 2 gm/ Premix 50 mls @ 25 mls/hr IV ONETIME ONE Stop: 05/17/19 11:01 Last Admin: 05/17/19 09:43 Dose: 25 mls/hr Lidocaine (Xylocaine-Mpf 2%) Confirm Administered Dose 5 ml .ROUTE .STK-MED ONE Stop: 05/18/19 07:06 Metoprolol Tartrate (Lopressor) 100 mg PO BID [facility] Last Admin: 05/12/19 09:09 Dose: 100 mg Metoprolol Tartrate (Lopressor) 50 mg PO ONETIME ONE Stop: 05/12/19 20:46 Last Admin: 05/12/19 20:59 Dose: 50 mg Polyethylene Glycol (Miralax) 119 gm PO 05/17/19@1400 [facility] Stop: 05/17/19 14:01 Last Admin: 05/17/19 14:53 Dose: 119 gm Polyethylene Glycol (Miralax) 119 gm PO 05/17/19@1800 [facility] Stop: 05/17/19 18:01 Last Admin: 05/17/19 18:55 Dose: 119 gm Potassium Chloride (Klor-Con M20) 40 meq PO ONETIME ONE Stop: 05/12/19 07:24 Last Admin: 05/12/19 08:00 Dose: 40 meq Propofol (Diprivan 20 Ml) Confirm Administered Dose 400 mg .ROUTE .STK-MED ONE Stop: 05/18/19 07:06 <Zuhair Hernandez - Last Filed: 05/21/19 18:41> Discharge Summary - Referral to Home Health Primary Care Physician: PCP Unobtainable - Patient Summary/Data Consults: Consultations 05/11/19 11:45 Consult to Physical Therapy [PT Evaluation and Treatment] [CONS] Routine 05/11/19 12:15 Consult to Physician [CONS] Stat - Patient Data Vitals - Most Recent: Last Vital Signs Temp 36.7 C 05/19/19 08:00 Pulse 64 05/19/19 09:45 Resp 14 05/19/19 08:00 BP 139/49 L 05/19/19 09:45 Pulse Ox 98 05/19/19 08:00 Med Orders - Current: Current Medications Discontinued Medications Apixaban (Eliquis) 5 mg PO BID [facility] Last Admin: 05/08/19 08:10 Dose: 5 mg Bisacodyl (Dulcolax) 10 mg PO 05/17/19@1200,1800 [facility] Stop: 05/17/19 18:01 Last Admin: 05/17/19 12:47 Dose: Not Given Bisacodyl (Dulcolax) 20 mg PO 05/17/19@1245 [facility] Stop: 05/17/19 12:46 Last Admin: 05/17/19 12:46 Dose: 20 mg Docusate Sodium (Colace) 100 mg PO BID PRN PRN Reason: Constipation Fentanyl (Sublimaze) Confirm Administered Dose 100 mcg .ROUTE .STK-MED ONE Stop: 05/18/19 07:06 Furosemide (Lasix) 20 mg IVPUSH ONETIME ONE Stop: 05/07/19 19:02 Last Admin: 05/07/19 19:06 Dose: 20 mg Furosemide (Lasix) Confirm Administered Dose 40 mg .ROUTE .STK-MED ONE Stop: 05/07/19 19:04 Last Admin: 05/07/19 20:53 Dose: Not Given Furosemide (Lasix) 40 mg IVPUSH BID [facility] Last Admin: 05/08/19 20:34 Dose: 40 mg Furosemide (Lasix) 40 mg IVPUSH BIDDIURETIC [facility] Last Admin: 05/11/19 09:24 Dose: 40 mg Furosemide (Lasix) 40 mg PO DAILY [facility] Last Admin: 05/18/19 08:28 Dose: 40 mg Furosemide (Lasix) 40 mg IV ONETIME ONE Stop: 05/15/19 10:46 Last Admin: 05/15/19 11:00 Dose: 40 mg Furosemide (Lasix) 40 mg IVPUSH NOW ONE Stop: 05/17/19 09:59 Last Admin: 05/17/19 10:35 Dose: 40 mg Furosemide (Lasix) 20 mg PO ONETIME ONE Stop: 05/18/19 09:35 Last Admin: 05/18/19 10:14 Dose: 20 mg Furosemide (Lasix) 60 mg PO DAILY [facility] Last Admin: 05/19/19 09:44 Dose: 60 mg Sodium Chloride (Normal Saline) 1,000 mls @ 125 mls/hr IV STAT JACOB Sodium Chloride (Normal Saline) 1,000 mls @ 125 mls/hr IV ASDIRECTED [facility] Sodium Chloride (Normal Saline) 1,000 mls @ 125 mls/hr IV .Bolus ONE Stop: 05/08/19 02:08 Last Admin: 05/07/19 18:25 Dose: 125 mls/hr Pantoprazole Sodium 40 mg/ (Sodium Chloride) 10 mls @ 300 mls/hr IV Q12H [facility] Last Admin: 05/11/19 21:30 Dose: 300 mls/hr Magnesium Sulfate 2 gm/ Premix 50 mls @ 25 mls/hr IV ONETIME ONE Stop: 05/10/19 11:47 Last Admin: 05/10/19 10:40 Dose: 25 mls/hr Magnesium Sulfate 2 gm/ Premix 50 mls @ 25 mls/hr IV ONETIME ONE Stop: 05/17/19 11:01 Last Admin: 05/17/19 09:43 Dose: 25 mls/hr Insulin Aspart (Novolog) 0 unit SUBCUT TIDAC [facility]; Protocol Last Admin: 05/19/19 11:48 Dose: 2 units Lidocaine (Xylocaine-Mpf 2%) Confirm Administered Dose 5 ml .ROUTE .STK-MED ONE Stop: 05/18/19 07:06 Metoprolol Tartrate (Lopressor) 100 mg PO BID [facility] Last Admin: 05/12/19 09:09 Dose: 100 mg Metoprolol Tartrate (Lopressor) 50 mg PO ONETIME ONE Stop: 05/12/19 20:46 Last Admin: 05/12/19 20:59 Dose: 50 mg Metoprolol Tartrate (Lopressor) 100 mg PO BID [facility] Last Admin: 05/19/19 09:45 Dose: 100 mg Multivitamins/Minerals (Prosight) 1 tab PO BID [facility] Last Admin: 05/19/19 09:46 Dose: 1 tab Nystatin (Nystatin Crm) 1 gm TOP BID [facility] Last Admin: 05/19/19 09:46 Dose: 1 applic [facility] Last Admin: 05/19/19 06:44 Dose: 40 mg Tetrahydrozoline Hcl ([Visine]) 1 each EYERT QID PRN PRN Reason: Dry Eyes Polyethylene Glycol (Miralax) 17 gm PO DAILY PRN PRN Reason: constipation Last Admin: 05/13/19 13:50 Dose: 17 gm Polyethylene Glycol (Miralax) 119 gm PO 05/17/19@1400 [facility] Stop: 05/17/19 14:01 Last Admin: 05/17/19 14:53 Dose: 119 gm Polyethylene Glycol (Miralax) 119 gm PO 05/17/19@1800 [facility] Stop: 05/17/19 18:01 Last Admin: 05/17/19 18:55 Dose: 119 gm Potassium Chloride (Klor-Con M20) 40 meq PO ONETIME ONE Stop: 05/12/19 07:24 Last Admin: 05/12/19 08:00 Dose: 40 meq Propofol (Diprivan 20 Ml) Confirm Administered Dose 400 mg .ROUTE .STK-MED ONE Stop: 05/18/19 07:06 Sucralfate (Carafate) 1 gm PO QIDACANDBED [facility] Last Admin: 05/19/19 11:48 Dose: 1 gm - Free Text/Narrative Note: I have seen and examined the patient with the resident. I have discussed findings and treatment plan with the resident. I agree with the assessment and plan outlined in the following note.
--- NOTE | 2019-05-19 12:05 | PCM.SN ---
- Free Text/Narrative Note: Patient is an 83-year-old male with perform the diagnostic EGD and colonoscopy on yesterday for GI bleed. He was found to have stress gastritis with multiple superficial ulcers with plaque and stigmata of recent bleed in the body of the stomach. He was also found to have multiple polyps throughout the colon. These were all removed. His hemoglobin stayed stable overnight and his vital signs are stable. He should follow-up with me in clinic in 2 weeks. He should be discharged on twice a day pantoprazole and 3 times a day Carafate/sucralfate use. Call with any questions or concerns.
--- NOTE | 2019-05-19 14:04 | OR ---
SURGEON: SHIRA LUONG MD DATE OF PROCEDURE: 05/18/2019 PREOPERATIVE DIAGNOSIS: Gastrointestinal bleed. POSTOPERATIVE DIAGNOSES: 1. Stress gastritis. 2. Esophagitis. 3. Cecal polyps x3. 4. Ascending colon polyps x3. 5. Splenic flexure polyp x1. 6. Sigmoid colon polyp x1. 7. Diverticulosis. PROCEDURE PERFORMED: Diagnostic esophagogastroduodenoscopy and colonoscopy. PRIMARY SURGEON: Shira Luong MD. ANESTHESIA: MAC. INSTRUMENT USED: Olympus endoscope/colonoscope. EXTENT OF EXAM: To the second portion of duodenum, to the cecum. PREPARATION: Good. LIMITATIONS: None. INDICATIONS FOR EXAMINATION: The patient is an 83-year-old male who was recently hospitalized for acute on chronic heart failure. While in the hospital, he was noted to have a drop in his hemoglobin with positive fecal occult blood in his stool. I was asked to assess the patient. When I initially saw the patient, the bleed had stopped and his hemoglobin was stable. Over the course of this hospitalization; however, he has required several transfusions. The decision was made to proceed with a diagnostic EGD and colonoscopy to locate the source of this slow bleed. I explained the procedure; expected perioperative course; and risks to the patient including bleeding, infection, or damage to surrounding structures including perforation. He verbalized understanding and wishes to proceed. PROCEDURE IN DETAIL: The patient was brought into the endoscopy suite and placed in the left lateral decubitus position. A time-out was completed verifying the patient's name, age, date of , allergies, and procedure to be performed. A bite block was placed in the patient's mouth. Monitored anesthesia care was induced and continuous oxygen was provided via nasal cannula throughout the procedure. After adequate sedation was achieved, a well-lubricated endoscope was placed in the patient's mouth and advanced under direct visualization to the second portion of duodenum. This appeared normal and a photograph was taken. The scope was then fully withdrawn while examining the color, texture, anatomy, and integrity of the mucosa of the upper GI tract. The patient was found to have multiple superficial ulcers with stigmata of bleeding within the body of the stomach. A biopsy was taken of the gastric antrum as well as in the body. These were sent for H. pylori testing and histologic review. In the distal esophagus, the patient was found to have some mild inflammation consistent with esophagitis. A photograph of this was taken. The remainder of the exam was normal. The scope was removed and this portion of procedure terminated. I then performed a digital rectal exam. This exam was within normal limits. A well- lubricated colonoscope was inserted in the rectum and advanced under direct visualization to the level of the cecum. The cecum was identified by both visual and anatomic landmarks. A photograph was taken of the cecal cap; however, I was unable to retroflex the scope within the cecum due to looping of the scope more proximally. The scope was then fully withdrawn while examining the color, texture, anatomy, and integrity of the mucosa from the cecum to the anal canal. The patient was found to have 3 cecal polyps. These were all removed in piecemeal fashion using cold biopsy forceps. The patient then was found to have 3 ascending colon polyps. Two of these were removed using a hot snare. The other one was removed using cold biopsy forceps. The patient then had another larger polyp at the splenic flexure, which was removed using a hot snare. The patient had a small sessile polyp in the sigmoid colon. This was removed using cold biopsy forceps. The patient had diverticulosis throughout the sigmoid colon. The scope was then brought into the rectum and retroflexed to allow visualization of the anal canal opening. This appeared normal and a photograph was taken. The scope was then straightened out and fully withdrawn. The cecum to anus time was 29 minutes. The patient tolerated the procedure well and was transferred to the PACU in stable condition. ENDOSCOPIC DIAGNOSES: 1. Stress gastritis. 2. Esophagitis. 3. Cecal polyps x3. 4. Ascending colon polyps x3. 5. Splenic flexure polyp x1. 6. Sigmoid colon polyp x1. 7. Diverticulosis. RECOMMENDATIONS: The patient will follow up with me in clinic in 2 weeks to discuss his biopsy results. In the meantime, the Medicine team will add Carafate to his b.i.d. PPI treatment. PACHECO MCKEON /[id number]
== END 2019-05-19 12:30 | DRG 377 ==
LOC: MW.ED 17:33 → MW.MS 19:27 → OBSVTOIN 05-10 09:06
PROVIDERS: ADMIT Internal Medicine; ATTEND Internal Medicine
PROC: 30233N1 Transfusion of Nonautologous Red Blood Cells into Peripheral Vein, Percutaneous Approach (ICD-10-PCS; 2019-05-12)
PROC: 0DB78ZX Excision of Stomach, Pylorus, Via Natural or Artificial Opening Endoscopic, Diagnostic (ICD-10-PCS; principal; 2019-05-18)
PROC: 0DBK8ZZ Excision of Ascending Colon, Via Natural or Artificial Opening Endoscopic (ICD-10-PCS; 2019-05-18)
PROC: 0DBH8ZZ Excision of Cecum, Via Natural or Artificial Opening Endoscopic (ICD-10-PCS; 2019-05-18)
PROC: 0DBL8ZZ Excision of Transverse Colon, Via Natural or Artificial Opening Endoscopic (ICD-10-PCS; 2019-05-18)
PROC: 0DBN8ZZ Excision of Sigmoid Colon, Via Natural or Artificial Opening Endoscopic (ICD-10-PCS; 2019-05-18)
PROC: 0DB68ZX Excision of Stomach, Via Natural or Artificial Opening Endoscopic, Diagnostic (ICD-10-PCS; 2019-05-18)
DX: K29.71 Gastritis, unspecified, with bleeding (principal); I50.9 Heart failure, unspecified; I50.33 Acute on chronic diastolic (congestive) heart failure; R53.1 Weakness; I27.82 Chronic pulmonary embolism; I69.954 Hemiplegia and hemiparesis following unspecified cerebrovascular disease affecting left non-dominant side; N17.9 Acute kidney failure, unspecified; I11.0 Hypertensive heart disease with heart failure; K57.31 Diverticulosis of large intestine without perforation or abscess with bleeding; K25.4 Chronic or unspecified gastric ulcer with hemorrhage; D64.9 Anemia, unspecified; K20.9 Esophagitis, unspecified; I48.91 Unspecified atrial fibrillation; E11.9 Type 2 diabetes mellitus without complications; H35.30 Unspecified macular degeneration; Z88.8 Allergy status to other drugs, medicaments and biological substances; I69.911 Memory deficit following unspecified cerebrovascular disease; H91.90 Unspecified hearing loss, unspecified ear; H54.7 Unspecified visual loss; E78.00 Pure hypercholesterolemia, unspecified; F32.9 Major depressive disorder, single episode, unspecified; E83.42 Hypomagnesemia; M54.17 Radiculopathy, lumbosacral region; K63.5 Polyp of colon; E87.6 Hypokalemia; Z98.49 Cataract extraction status, unspecified eye; Z90.89 Acquired absence of other organs; Z97.0 Presence of artificial eye; Z90.49 Acquired absence of other specified parts of digestive tract; Z94.7 Corneal transplant status; Z79.82 Long term (current) use of aspirin; Z79.899 Other long term (current) drug therapy; Z79.84 Long term (current) use of oral hypoglycemic drugs; Z90.79 Acquired absence of other genital organ(s); I25.2 Old myocardial infarction; Z86.711 Personal history of pulmonary embolism; Z79.01 Long term (current) use of anticoagulants; Z91.018 Allergy to other foods; Z88.0 Allergy status to penicillin; Z87.891 Personal history of nicotine dependence
CPT/HCPCS: 36415 ×3; 36430; 71045; 80048 ×3; 80053; 81001; 82272; 82962 ×7; 83735; 83880; 84100; 84484; 85018; 85025 ×4; 85027; 85610; 86850; 86900; 86901; 86920 ×2; 86921 ×2; 86922 ×2; 87040 ×2; 87086; 87088; 87186; 93005; 96360; 99285; A9270 ×12; C9113 ×4; J1815; J1940 ×5; J7030; J7050 ×4; P9016; 71046; 71046-26; 81003; 87338; 93307; 97161-GP; 99284; J2001; J2704; J3010; J3475

== ENCOUNTER 2019-07-24 20:46 | Inpatient (IN) | payer MEDICARE ==
[2019-07-24] MEDS ORDERED: Acetaminophen 500 MG Tab PO ONE (21:04)
--- NOTE | 2019-07-24 21:31 | CT ---
HISTORY: New onset headache. TECHNIQUE: CT brain without contrast. COMPARISON: CT brain 09/15/2015. FINDINGS: No acute intracranial hemorrhage. No extra-axial collection. No mass effect or midline shift. Mild generalized brain volume loss with proportional enlargement of the CSF spaces. Cisterns are patent. Moderate patchy hypoattenuation in the deep white matter is likely chronic small vessel ischemic change. Calvarium is intact. Small left ocular globe with peripheral calcifications, unchanged. IMPRESSION: 1. No acute intracranial abnormality. 2. Brain volume loss and small vessel ischemic changes. Please note that all CT scans at this facility use dose modulation, iterative reconstruction, and/or weight-based dosing when appropriate to reduce radiation dose to as low as reasonably achievable. Dictated by Ac Ayon MD @ Jul 24 2019 9:24PM Signed by Dr. Ac Ayon @ Jul 24 2019 9:30PM
[2019-07-24 21:35] LABS: BLOOD UREA NITROGEN,BUN 40 mg/dL (7.0-18.0); CARBON DIOXIDE,CO2 18.8 mmol/L (21.0-32.0); CHLORIDE,CL 100 mmol/L (98-107); GLUCOSE RANDOM 172 mg/dL (74-106); LIPASE 352 U/L (73-393); SODIUM,NA 136 mmol/L (136-148)
--- NOTE | 2019-07-24 21:37 | CR ---
HISTORY: New onset headache. TECHNIQUE: Portable frontal view the chest. COMPARISON: Chest x-ray 05/12/2019. FINDINGS: Dense opacities in the lower aspects of both the thoraces likely reflect combination of small to moderate size pleural effusions and atelectasis or consolidation. No pneumothorax. Cardiomediastinal silhouette is partially obscured. Aortic atherosclerotic calcifications. Chondroid lesion measuring approximately 2 cm in length in the left humeral head, unchanged. IMPRESSION: Small to moderate size bilateral pleural effusions with bibasilar atelectasis or airspace disease. Dictated by Ac Ayon MD @ Jul 24 2019 9:33PM Signed by Dr. Ac Ayon @ Jul 24 2019 9:35PM
[2019-07-24 22:00] LABS: ACETAMINOPHEN <2.0 ug/mL
[2019-07-25] MEDS ORDERED: Sodium Chloride 0.9% 250 ML IV SCH (02:00)
[2019-07-25] MEDS ORDERED: Enoxaparin 100 MG/1 ML Syringe SUBCUT ONE (02:03)
--- NOTE | 2019-07-25 02:06 | EDM.PDOC ---
ED HPI GENERAL MEDICAL PROBLEM - General Chief Complaint: General Stated Complaint: EMS ARRIVAL NOT FEELING WELL Time Seen by Provider: 07/24/19 20:47 - History of Present Illness INITIAL COMMENTS - FREE TEXT/NARRATIVE: HPI 83-year-old male with history of TIA, DM II, HTN, HLD, CHF, A. fib, and generalized weakness presents for evaluation of one day increased weakness in the setting of one month of progressively worsening weakness, notes recent weight gain, unclear of change in leg swelling, no apparent orthopnea or shortness of breath, also notes a reportedly new headache of several days duration that was gradual in onset and is without neck stiffness or fevers. Patient stated to EMS that he was hypoxic at home (in the 80s), EMS vital signs were without evidence of hypoxemia. Patient unsure of anticoagulation, denies history of DVT or PE. History obtained from: patient and medical record. CTA chest (04/29/19: 1. Linear peripheral filling defect in right lower lobe branch of the pulmonary artery, likely due to chronic PE. Otherwise no evidence of acute PE within limitations of the examination. 2 Cardiomegaly, bilateral pleural effusions, and pulmonary edema consistent with CHF 3. Enlarged main pulmonary artery which can be seen with pulmonary hypertension. 4. Nonspecific enlarged right hilar lymph node. Discharge summary dated 05/19/19 reviewed and notable for: admission for CHF exacerbation with anemia, patient has a history of atrial fibrillation on Eliquis, TIA, and DM II. His CHF exacerbation was true with IV Lasix in his diaries, the patient was noted to have a drop hemoglobin and endoscopy noted stress gastritis in multiple ulcers and stigmata of recent GI bleeding. The patients Eliquis was discontinued with instructions for the patient to follow up on an outpatient basis for consideration of re-initiation of his Eliquis. M/S/F/SocHx notable for: please see HPI; remainder reviewed with patient and in chart. ROS: Negative constitutional, eye, cardiovascular, pulmonary, GI, , MSK, skin , neurologic, psychiatric, endocrine unless noted in the HPI. Exam HR 66, RR 18, BP 109/48, T 35.6C, SaO2 94% on room air. Gen: Pleasant, non-toxic appearing, resting comfortably. HEENT: Normocephalic, atraumatic Resp: Clear to auscultation bilaterally, normal work of breathing with no accessory muscle usage. Card: irregularly irregular rate, no murmurs rubs or gallops. No JVD. LLE with 3 + pitting edema to the midcalf, RLE with 2+ pitting edema to the midcalf. GI: Nontender to palpation throughout all quadrants. Nondistended. : No CVA tenderness to percussion bilaterally. No suprapubic tenderness or palpable masses. MSK: No visible deformities, strength and tone within normal limits. Skin: Normal color with no visible lesions. Neuro: alert and oriented 3, no facial asymmetry, no gaze preference, no slurring of speech. Pupils equal and reactive, EOMI, no facial asymmetry, no nystagmus, phonation intact, SCM 5/5 bilaterally. Cerebellar: bilateral upper extremities without dysmetria. Psych: flat mood and affect. Labs / Imaging (pertinent): WBC 5.92, Hb 9.0, Na 136, K 5.0, CR 1.8 (est GRF 36), total bilirubin 0.3, AST 23, ALT 35, ALP 131, lipase 352. D-dimer 1.59 troponin <0.050 ESR 17 PT/INR 1.22 TSH 15.62, free T4 1.02. BNP 2252 salicylates 1.2, acetaminophen <2.0. UA - pending. CXR: small to moderate sized bilateral pleural effusions with by basilar atelectasis or airspace disease. CT head: no acute intracranial abnormality. Brain volume loss and small vessel ischemic changes. EKG: atrial fibrillation with ventricular rate of 65 bpm. MDM Previous chart, nursing note, and vitals reviewed. A: 83-year-old male with history of TIA, DM II, HTN, HLD, CHF, A. fib, and generalized weakness presents for evaluation of one day increased weakness in the setting of one month of progressively worsening weakness, notes recent weight gain, unclear of change in leg swelling, no apparent orthopnea or shortness of breath, also notes a reportedly new headache of several days duration that was gradual in onset and is without neck stiffness or fevers. DDx: CVA, ACS/UA, UTI, pneumonia, electrolyte abnormalities,anemia, hypothyroidism, hypothermia. Evaluation: concern exists for possible pulmonary embolism with secondary weakness and hypoxemia (as noted by patient). D-dimer elevated, renal function worsened with respect to baseline. CTA ordered, however radiology with significant reluctance due to the patients renal function and hypertension. As the patient is not in a CHF exacerbation gentle hydration (250 ML NS at time of admission) was ordered and the patient was given Lovenox. There is no clear evidence of CVA given the unremarkable CT head and absence of focal neuro deficits as well as the overall history. No clear evidence of ACS or unstable angina by ECG and cardiac enzymes. Examination shows stable CHF, BNP minimally elevated over baseline. Chest x-ray without significant edema. While a UTI may cause the patients symptoms, urinalysis has not been available while the emergency department. Further evaluation deferred to the hospitalist as appropriate. Chest x-rays without evidence of pneumonia. And while the patients TSH is elevated, his free T4 is within normal limits. Further management this is deferred to the hospitalist. ESR is within normal limits strongly suggesting is polymyalgia rheumatica; additionally this diagnosis is a poor fit with the patients overall symptoms. ED Course: 1 g acetaminophen given for treatment of headache. After my history and evaluation the patient to close to nursing that he has ongoing suicidal ideation, patient is refusing to disclose plan. Anticipate repeat evaluation and possible psychiatry consultation after treatment of medical conditions. Disposition: admitted for hydration and further evaluation of possible PE, further evaluation of possible hypothyroidism, and SI. Impression: weakness. head Pain Score (Numeric/FACES): 4 - Related Data Allergies Allergy/AdvReac Type Severity Reaction Status Date / Time Penicillins Allergy Rash Verified 07/24/19 21:00 Adhesives Allergy Hives Uncoded 07/24/19 21:00 Jeruselum Artichoke Allergy Hives Uncoded 07/24/19 21:00 Leachy Nuts Allergy Hives Uncoded 07/24/19 21:00 Waldo Seeds Allergy Hives Uncoded 07/24/19 21:00 Home Meds: Home Meds Losartan Potassium 100 mg PO DAILY 02/23/14 [History] Metoprolol Tartrate 100 mg PO BID 02/23/14 [History] atorvaSTATin Calcium [Atorvastatin Calcium] 40 mg PO BEDTIME 02/23/14 [History] metFORMIN [Glucophage] 1,000 mg PO BID 02/23/14 [History] Cholecalciferol (Vitamin D3) [Vitamin D3] 2,000 units PO DAILY 01/30/17 [History ] SitaGLIPtin [Januvia] 100 mg PO DAILY 01/30/17 [History] Tetrahydrozoline HCl [Visine] 1 drop EYERT ASDIRECTED PRN 01/30/17 [History] Vit A/Vit C/Vit E/Zinc/Copper [Preservision] 1 tab PO BID 07/30/18 [History] Furosemide 60 mg PO DAILY 30 Days #90 tablet 05/19/19 [Rx] Furosemide [Lasix] 60 mg PO DAILY 30 Days tablet 05/19/19 [Rx] Nystatin [Nystatin Crm] 1 gm TOP BID tube 05/19/19 [Rx] Pantoprazole [ProTONIX] 40 mg PO BIDAC 30 Days #60 tab.cr 05/19/19 [Rx] Sucralfate [Carafate] 1 gm PO QIDACANDBED 30 Days #120 cup 05/19/19 [Rx] Past Medical History HEENT History: Reports: Hard of Hearing, Impaired Vision, Macular Degeneration, Other (See Below) Other HEENT History: 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16, wears glasses , tracey hearing aids Cardiovascular History: Reports: Afib, High Cholesterol, Hypertension, [place] Respiratory History: Reports: None Gastrointestinal History: Reports: Other (See Below) Other Gastrointestinal History: hernia Genitourinary History: Reports: Prostate Disorder Musculoskeletal History: Reports: Other (See Below) Other Musculoskeletal History: fx fingers Neurological History: Reports: TIA, Other (See Below) Other Neuro History: unsteady gait, TIA March,-weaker on left side, also memomy and walk affected Psychiatric History: Reports: Depression Endocrine/Metabolic History: Reports: Diabetes, Type II Hematologic History: Reports: Anemia - Infectious Disease History Infectious Disease History: Reports: Chicken Pox, Mumps - Past Surgical History HEENT Surgical History: Reports: Cataract Surgery, Eye Surgery, Tonsillectomy Other HEENT Surgeries/Procedures: prostetic left eye, 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, GI Surgical History: Reports: Hernia, Inguinal Other GI Surgeries/Procedures: inguinal hernia repair x2 Male Surgical History: Reports: TURP-Transurethral Resection of Prostate Social & Family History - Family History Family Medical History: Noncontributory Cardiac: Reports: Hypertension, [place] - Tobacco Use Smoking Status *Q: Never Smoker Second Hand Smoke Exposure: No - Caffeine Use Caffeine Use: Reports: Coffee - Recreational Drug Use Recreational Drug Use: No ED ROS GENERAL - Review of Systems Review Of Systems: See Below ED EXAM, GENERAL - Physical Exam Exam: See Below Course - Vital Signs Last Recorded V/S: Last Vital Signs Temp 35.6 C 07/24/19 21:00 Pulse 67 07/25/19 00:37 Resp 16 07/24/19 23:00 BP 122/55 L 07/25/19 00:37 Pulse Ox 100 07/25/19 00:37 - Orders/Labs/Meds Orders: Active Orders 24 hr Category Date Time Status EKG 12 Lead [EKG Documentation Completion] [RC] STAT Care 07/24/19 20:51 Active PE Chest [Ang Chest] [CT] Stat Exams 07/24/19 22:12 Ordered DRUG SCREEN, URINE [URCHEM] Stat Lab 07/24/19 21:37 Ordered UA W/ADRIANO RFLX IF INDICATED [URIN] Stat Lab 07/24/19 20:49 Ordered Sodium Chloride 0.9% [Normal Saline] 250 ml Med 07/25/19 02:00 Ordered IV ASDIRECTED ED Alcohol and Substance Abuse Reflex [OM.PC] Click To Oth 07/24/19 21:37 Ordered Edit Medication Orders Sodium Chloride (Normal Saline) 250 mls @ 125 mls/hr IV ASDIRECTED [facility] Labs: Laboratory Tests 07/24/19 07/24/19 07/24/19 Range/Units 20:55 20:55 20:55 WBC 5.92 (4.0-11.0) K/uL RBC 3.67 L (4.50-5.90) M/uL Hgb 9.0 L (13.0-17.0) g/dL Hct 30.1 L (38.0-50.0) % MCV 82.0 (80.0-98.0) fL MCH 24.5 L (27.0-32.0) pg MCHC 29.9 L (31.0-37.0) g/dL RDW Std Deviation 53.6 (28.0-62.0) fl RDW Coeff of Theresa 18 H (11.0-15.0) % Plt Count 195 (150-400) K/uL MPV 10.10 (7.40-12.00) fL Neut % (Auto) 60.4 (48.0-80.0) % Lymph % (Auto) 26.2 (16.0-40.0) % [place] % (Auto) 12.3 (0.0-15.0) % Eos % (Auto) 0.8 (0.0-7.0) % Baso % (Auto) 0.3 (0.0-1.5) % Neut # (Auto) 3.6 (1.4-5.7) K/uL Lymph # (Auto) 1.6 (0.6-2.4) K/uL [place] # (Auto) 0.7 (0.0-0.8) K/uL Eos # (Auto) 0.1 (0.0-0.7) K/uL Baso # (Auto) 0.0 (0.0-0.1) K/uL Nucleated RBC % 0.0 /100WBC Nucleated RBCs # 0 K/uL ESR (0-19) mm/hr INR 1.22 D-Dimer, Quantitative 1.59 H (0.0-0.50) mg/L FEU Sodium 136 (136-148) mmol/L Potassium 5.0 (3.5-5.1) mmol/L Chloride 100 (98-107) mmol/L Carbon Dioxide 18.8 L (21.0-32.0) mmol/L BUN 40 H (7.0-18.0) mg/dL Creatinine 1.8 H (0.8-1.3) mg/dL Est Cr Clr Drug Dosing 30.61 mL/min Estimated GFR (MDRD) 36.3 ml/min Glucose 172 H (74-106) mg/dL Calcium 8.6 (8.5-10.1) mg/dL Total Bilirubin 0.3 (0.2-1.0) mg/dL AST 23 (15-37) IU/L ALT 35 (14-63) IU/L Alkaline Phosphatase 131 H (46-116) U/L Troponin I < 0.050 (0.000-0.056) ng/mL B-Natriuretic Peptide (<100) PG/ML Total Protein 6.4 (6.4-8.2) g/dL Albumin 3.5 (3.4-5.0) g/dL Globulin 2.9 (2.6-4.0) g/dL Albumin/Globulin Ratio 1.2 (0.9-1.6) Lipase 352 (73-393) U/L Free T4 (0.76-1.46) ng/dL TSH 3rd Generation 15.62 H (0.36-3.74) uIU/mL Salicylates (0-20) mg/dL Acetaminophen ug/mL 07/24/19 07/24/19 07/24/19 Range/Units 20:55 20:55 20:55 WBC (4.0-11.0) K/uL RBC (4.50-5.90) M/uL Hgb (13.0-17.0) g/dL Hct (38.0-50.0) % MCV (80.0-98.0) fL MCH (27.0-32.0) pg MCHC (31.0-37.0) g/dL RDW Std Deviation (28.0-62.0) fl RDW Coeff of Theresa (11.0-15.0) % Plt Count (150-400) K/uL MPV (7.40-12.00) fL Neut % (Auto) (48.0-80.0) % Lymph % (Auto) (16.0-40.0) % [place] % (Auto) (0.0-15.0) % Eos % (Auto) (0.0-7.0) % Baso % (Auto) (0.0-1.5) % Neut # (Auto) (1.4-5.7) K/uL Lymph # (Auto) (0.6-2.4) K/uL [place] # (Auto) (0.0-0.8) K/uL Eos # (Auto) (0.0-0.7) K/uL Baso # (Auto) (0.0-0.1) K/uL Nucleated RBC % /100WBC Nucleated RBCs # K/uL ESR 17 (0-19) mm/hr INR D-Dimer, Quantitative (0.0-0.50) mg/L FEU Sodium (136-148) mmol/L Potassium (3.5-5.1) mmol/L Chloride (98-107) mmol/L Carbon Dioxide (21.0-32.0) mmol/L BUN (7.0-18.0) mg/dL Creatinine (0.8-1.3) mg/dL Est Cr Clr Drug Dosing mL/min Estimated GFR (MDRD) ml/min Glucose (74-106) mg/dL Calcium (8.5-10.1) mg/dL Total Bilirubin (0.2-1.0) mg/dL AST (15-37) IU/L ALT (14-63) IU/L Alkaline Phosphatase (46-116) U/L Troponin I (0.000-0.056) ng/mL B-Natriuretic Peptide 2252 H (<100) PG/ML Total Protein (6.4-8.2) g/dL Albumin (3.4-5.0) g/dL Globulin (2.6-4.0) g/dL Albumin/Globulin Ratio (0.9-1.6) Lipase (73-393) U/L Free T4 1.02 (0.76-1.46) ng/dL TSH 3rd Generation (0.36-3.74) uIU/mL Salicylates 1.2 (0-20) mg/dL Acetaminophen <2.0 ug/mL Meds: Medications Generic Name Dose Route Start Last Admin Trade Name Freq PRN Reason Stop Dose Admin Sodium Chloride 250 mls @ 125 mls/hr 07/25/19 02:00 Normal Saline IV ASDIRECTED JACOB Discontinued Medications Generic Name Dose Route Start Last Admin Trade Name Freq PRN Reason Stop Dose Admin Acetaminophen 1,000 mg 07/24/19 21:04 07/24/19 21:31 Tylenol Extra Strength PO 07/24/19 21:05 1,000 mg ONETIME ONE Administration Enoxaparin Sodium 90 mg 07/25/19 02:03 Lovenox SUBCUT 07/25/19 02:04 ONETIME ONE Departure - Departure Time of Disposition: 02:06 Disposition: Admitted As Inpatient 67 Clinical Impression: Weakness - Discharge Information Referrals: PCP,Unknown [Primary Care Provider] - Sepsis Event Note - Evaluation Sepsis Screening Result: No Definite Risk - Focused Exam Vital Signs: Vital Signs Temp Pulse Resp BP Pulse Ox 07/25/19 00:37 67 122/55 L 100 07/24/19 23:37 69 111/56 L 100 07/24/19 23:00 66 16 111/55 L 100 07/24/19 22:30 71 18 110/57 L 100 07/24/19 22:00 69 18 123/55 L 99 07/24/19 21:30 72 18 124/74 98 07/24/19 21:00 35.6 C 66 18 109/48 L 94 L Date Exam was Performed: 07/25/19 Time Exam was Performed: 02:06 - My Orders Last 24 Hours: My Active Orders 07/24/19 20:49 UA W/ADRIANO RFLX IF INDICATED [URIN] Stat 07/24/19 20:51 EKG 12 Lead [EKG Documentation Completion] [RC] STAT 07/24/19 21:37 DRUG SCREEN, URINE [URCHEM] Stat ED Alcohol and Substance Abuse Reflex [OM.PC] Click To Edit 07/24/19 22:12 PE Chest [Ang Chest] [CT] Stat 07/25/19 02:00 Sodium Chloride 0.9% [Normal Saline] 250 ml IV ASDIRECTED - Assessment/Plan Last 24 Hours: My Active Orders 07/24/19 20:49 UA W/ADRIANO RFLX IF INDICATED [URIN] Stat 07/24/19 20:51 EKG 12 Lead [EKG Documentation Completion] [RC] STAT 07/24/19 21:37 DRUG SCREEN, URINE [URCHEM] Stat ED Alcohol and Substance Abuse Reflex [OM.PC] Click To Edit 07/24/19 22:12 PE Chest [Ang Chest] [CT] Stat 07/25/19 02:00 Sodium Chloride 0.9% [Normal Saline] 250 ml IV ASDIRECTED
[2019-07-25] MEDS ORDERED: TETRAHYDROZOLINE HCL EYERT PRN (05:32)
[2019-07-25] MEDS: Sucralfate Suspension 1 GM/10 ML Cup PO SCH ×4 (06:54→20:16)
[2019-07-25] MEDS: Insulin Aspart 100 Units/ML 3 ML Pen SUBCUT SCH ×3 (07:00→17:48)
[2019-07-25] MEDS: Furosemide 20 MG Tab PO SCH (08:16)
[2019-07-25] MEDS: Beta-Carotene (Vitamin A) w/Vitamin C & E plus Minerals Tab PO SCH ×2 (08:16→20:17)
[2019-07-25] MEDS: Cholecalciferol (Vitamin D3) 25 MCG Tab PO SCH (08:16)
[2019-07-25] MEDS: Pantoprazole 40 MG in Sodium Chloride 0.9% 10 ML IV SCH ×2 (08:17→20:17)
[2019-07-25] MEDS: Metoprolol Tartrate 50 MG Tab PO SCH ×2 (08:17→20:16)
[2019-07-25] MEDS: Nystatin Crm 30 GM Tube TOP SCH ×2 (08:18→20:15)
[2019-07-25] MEDS ORDERED: Magnesium Sulfate/Water 2 GM in Premix Bag 1 BAG IV ONE ×2 (09:48→12:15)
--- NOTE | 2019-07-25 09:48 | PCM.HP.2 ---
H&P History of Present Illness - General Date of Service: 07/25/19 Admit Problem/Dx: Admission Diagnosis/Problem Admission Diagnosis/Problem Weakness History Limitations: Reports: No Limitations - History of Present Illness Initial Comments - Free Text/Narative: 83-year-old male with history of TIA, DM II, HTN, HLD, CHF, A. fib on Eliquis , and generalized weakness presents for evaluation of one day increased weakness in the setting of one month of progressively worsening weakness, notes recent weight gain, leg swelling, no apparent orthopnea but has YOUNGER. In the ER patient was found to have elevated D-Dimer, but CTA wasnt done due to low GFR, Renal function was worse than baseline. CT head was negative, no focal deficits were appreciated on exam, CXR was unremarkable for any consolidation. . UA was pending in the ER. TSH was elevated but T4 was normal. ESR and troponin was normal. Patient also states that he has been eating increasingly depressed and wants to hurt himself, but has no plan yet or atleast isn't disclosing the plan. DDx: CVA, ACS/UA, UTI, pneumonia, electrolyte abnormalities,anemia, hypothyroidism, hypothermia. head Pain Score (Numeric/FACES): 4 - Related Data Allergies/Adverse Reactions: Allergies Allergy/AdvReac Type Severity Reaction Status Date / Time Penicillins Allergy Rash Verified 07/24/19 21:00 Adhesives Allergy Hives Uncoded 07/24/19 21:00 [place] Artichoke Allergy Hives Uncoded 07/24/19 21:00 Leachy Nuts Allergy Hives Uncoded 07/24/19 21:00 [place] Seeds Allergy Hives Uncoded 07/24/19 21:00 Home Medications: Home Meds Losartan Potassium 100 mg PO DAILY 02/23/14 [History] Metoprolol Tartrate 100 mg PO BID 02/23/14 [History] atorvaSTATin Calcium [Atorvastatin Calcium] 40 mg PO BEDTIME 02/23/14 [History] metFORMIN [Glucophage] 1,000 mg PO BID 02/23/14 [History] Cholecalciferol (Vitamin D3) [Vitamin D3] 2,000 units PO DAILY 01/30/17 [History ] SitaGLIPtin [Januvia] 100 mg PO DAILY 01/30/17 [History] Tetrahydrozoline HCl [Visine] 1 drop EYERT ASDIRECTED PRN 01/30/17 [History] Vit A/Vit C/Vit E/Zinc/Copper [Preservision] 1 tab PO BID 07/30/18 [History] Furosemide 60 mg PO DAILY 30 Days #90 tablet 05/19/19 [Rx] Furosemide [Lasix] 60 mg PO DAILY 30 Days tablet 05/19/19 [Rx] Nystatin [Nystatin Crm] 1 gm TOP BID tube 05/19/19 [Rx] Pantoprazole [ProTONIX] 40 mg PO BIDAC 30 Days #60 tab.cr 05/19/19 [Rx] Sucralfate [Carafate] 1 gm PO QIDACANDBED 30 Days #120 cup 05/19/19 [Rx] Apixaban [Eliquis] 1 tab PO BID 07/25/19 [History] Past Medical History HEENT History: Reports: Hard of Hearing, Impaired Vision, Macular Degeneration, Other (See Below) Other HEENT History: 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16, wears glasses , tracey hearing aids Cardiovascular History: Reports: Afib, High Cholesterol, Hypertension, [place] Respiratory History: Reports: None Gastrointestinal History: Reports: Other (See Below) Other Gastrointestinal History: hernia Genitourinary History: Reports: Prostate Disorder Musculoskeletal History: Reports: Other (See Below) Other Musculoskeletal History: fx fingers Neurological History: Reports: TIA, Other (See Below) Other Neuro History: unsteady gait, TIA March,-weaker on left side, also memomy and walk affected Psychiatric History: Reports: Depression Endocrine/Metabolic History: Reports: Diabetes, Type II Hematologic History: Reports: Anemia - Infectious Disease History Infectious Disease History: Reports: Chicken Pox, Mumps - Past Surgical History HEENT Surgical History: Reports: Cataract Surgery, Eye Surgery, Tonsillectomy Other HEENT Surgeries/Procedures: prostetic left eye, 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, GI Surgical History: Reports: Hernia, Inguinal Other GI Surgeries/Procedures: inguinal hernia repair x2 Male Surgical History: Reports: TURP-Transurethral Resection of Prostate Social & Family History - Family History Family Medical History: Noncontributory Cardiac: Reports: Hypertension, [place] - Tobacco Use Smoking Status *Q: Never Smoker Second Hand Smoke Exposure: No - Caffeine Use Caffeine Use: Reports: Coffee - Recreational Drug Use Recreational Drug Use: No H&P Review of Systems - Review of Systems: Review Of Systems: See Below General: Reports: Malaise, Weakness, Fatigue, Decreased Appetite. Denies: Fever , Chills Pulmonary: Reports: Shortness of Breath. Denies: Wheezing, Pleuritic Chest Pain , Cough, Sputum Cardiovascular: Reports: Dyspnea on Exertion. Denies: Chest Pain, Palpitations , Orthopnea Gastrointestinal: Denies: Abdominal Pain, Anorexia, Black Stool, Bloody Stool Genitourinary: Denies: Dysuria, Frequency Musculoskeletal: Denies: Neck Pain, Shoulder Pain, Arm Pain Skin: Denies: Jaundice, Mottled Psychiatric: Reports: Depression, Mood Lability, Anxiety, Suicidal Ideation. Denies: Confusion, Cravings Neurological: Reports: Headache, Difficulty Walking, Weakness. Denies: Confusion, Numbness, Paresthesia, Seizure, Syncope Exam - Exam Exam: See Below - Vital Signs Vital Signs: Last Vital Signs Temp 36.3 C 07/25/19 07:48 Pulse 78 07/25/19 08:17 Resp 20 07/25/19 07:48 BP 134/43 L 07/25/19 08:17 Pulse Ox 98 07/25/19 07:48 Weight: 90.718 kg - Exam Quality Assessment: Supplemental Oxygen General: Alert, Oriented, Cooperative HEENT: Conjunctiva Clear Neck: Supple, Trachea Midline Lungs: Clear to Auscultation, Normal Respiratory Effort. No: Crackles, Rales Cardiovascular: Regular Rate, Regular Rhythm, Normal S1, Normal S2 GI/Abdominal Exam: Normal Bowel Sounds, Soft, Non-Tender Peripheral Pulses: 2+: Dorsalis Pedis (L), Dorsalis Pedis (R) Neurological: Cranial Nerves Intact, Normal Speech, Normal Tone Neuro Extensive - Mental Status: Alert, Oriented x3, Memory Intact - Patient Data Lab Results Last 24 hrs: Laboratory Results - last 24 hr 07/24/19 07/24/19 07/24/19 Range/Units 20:55 20:55 20:55 WBC 5.92 (4.0-11.0) K/uL RBC 3.67 L (4.50-5.90) M/uL Hgb 9.0 L (13.0-17.0) g/dL Hct 30.1 L (38.0-50.0) % MCV 82.0 (80.0-98.0) fL MCH 24.5 L (27.0-32.0) pg MCHC 29.9 L (31.0-37.0) g/dL RDW Std Deviation 53.6 (28.0-62.0) fl RDW Coeff of Theresa 18 H (11.0-15.0) % Plt Count 195 (150-400) K/uL MPV 10.10 (7.40-12.00) fL Neut % (Auto) 60.4 (48.0-80.0) % Lymph % (Auto) 26.2 (16.0-40.0) % [place] % (Auto) 12.3 (0.0-15.0) % Eos % (Auto) 0.8 (0.0-7.0) % Baso % (Auto) 0.3 (0.0-1.5) % Neut # (Auto) 3.6 (1.4-5.7) K/uL Lymph # (Auto) 1.6 (0.6-2.4) K/uL [place] # (Auto) 0.7 (0.0-0.8) K/uL Eos # (Auto) 0.1 (0.0-0.7) K/uL Baso # (Auto) 0.0 (0.0-0.1) K/uL Nucleated RBC % 0.0 /100WBC Nucleated RBCs # 0 K/uL ESR (0-19) mm/hr INR 1.22 D-Dimer, Quantitative 1.59 H (0.0-0.50) mg/L FEU Sodium 136 (136-148) mmol/L Potassium 5.0 (3.5-5.1) mmol/L Chloride 100 (98-107) mmol/L Carbon Dioxide 18.8 L (21.0-32.0) mmol/L BUN 40 H (7.0-18.0) mg/dL Creatinine 1.8 H (0.8-1.3) mg/dL Est Cr Clr Drug Dosing 30.61 mL/min Estimated GFR (MDRD) 36.3 ml/min Glucose 172 H (74-106) mg/dL POC Glucose (60-110) mg/dL Calcium 8.6 (8.5-10.1) mg/dL Phosphorus (2.6-4.7) mg/dL Magnesium (1.8-2.4) mg/dL Total Bilirubin 0.3 (0.2-1.0) mg/dL AST 23 (15-37) IU/L ALT 35 (14-63) IU/L Alkaline Phosphatase 131 H (46-116) U/L Troponin I < 0.050 (0.000-0.056) ng/mL B-Natriuretic Peptide (<100) PG/ML Total Protein 6.4 (6.4-8.2) g/dL Albumin 3.5 (3.4-5.0) g/dL Globulin 2.9 (2.6-4.0) g/dL Albumin/Globulin Ratio 1.2 (0.9-1.6) Lipase 352 (73-393) U/L Free T4 (0.76-1.46) ng/dL TSH 3rd Generation 15.62 H (0.36-3.74) uIU/mL Urine Color Urine Appearance Urine pH (5.0-8.0) Ur Specific [place] (1.001-1.035) Urine Protein (NEGATIVE) mg/dL Urine Glucose (UA) (NEGATIVE) mg/dL Urine Ketones (NEGATIVE) mg/dL Urine Occult Blood (NEGATIVE) Urine Nitrite (NEGATIVE) Urine Bilirubin (NEGATIVE) Urine Urobilinogen (<2.0) EU/dL Ur Leukocyte Esterase (NEGATIVE) U Hyaline Cast (Auto) (0-2/LPF) Urine RBC (0-2/HPF) Urine WBC (0-5/HPF) Ur Epithelial Cells (NONE-FEW) Urine Bacteria (NEGATIVE) Urine Mucus (NONE-MOD) Salicylates (0-20) mg/dL Urine Opiates Screen (NEGATIVE) Ur Oxycodone Screen (NEGATIVE) Urine Methadone Screen (NEGATIVE) Acetaminophen ug/mL Ur Barbiturates Screen (NEGATIVE) Ur Phencyclidine Scrn (NEGATIVE) Ur Amphetamine Screen (NEGATIVE) U Methamphetamines Scrn (NEGATIVE) U Benzodiazepines Scrn (NEGATIVE) U Cocaine Metab Screen (NEGATIVE) U Marijuana (THC) Screen (NEGATIVE) 07/24/19 07/24/19 07/24/19 Range/Units 20:55 20:55 20:55 WBC (4.0-11.0) K/uL RBC (4.50-5.90) M/uL Hgb (13.0-17.0) g/dL Hct (38.0-50.0) % MCV (80.0-98.0) fL MCH (27.0-32.0) pg MCHC (31.0-37.0) g/dL RDW Std Deviation (28.0-62.0) fl RDW Coeff of Theresa (11.0-15.0) % Plt Count (150-400) K/uL MPV (7.40-12.00) fL Neut % (Auto) (48.0-80.0) % Lymph % (Auto) (16.0-40.0) % [place] % (Auto) (0.0-15.0) % Eos % (Auto) (0.0-7.0) % Baso % (Auto) (0.0-1.5) % Neut # (Auto) (1.4-5.7) K/uL Lymph # (Auto) (0.6-2.4) K/uL [place] # (Auto) (0.0-0.8) K/uL Eos # (Auto) (0.0-0.7) K/uL Baso # (Auto) (0.0-0.1) K/uL Nucleated RBC % /100WBC Nucleated RBCs # K/uL ESR 17 (0-19) mm/hr INR D-Dimer, Quantitative (0.0-0.50) mg/L FEU Sodium (136-148) mmol/L Potassium (3.5-5.1) mmol/L Chloride (98-107) mmol/L Carbon Dioxide (21.0-32.0) mmol/L BUN (7.0-18.0) mg/dL Creatinine (0.8-1.3) mg/dL Est Cr Clr Drug Dosing mL/min Estimated GFR (MDRD) ml/min Glucose (74-106) mg/dL POC Glucose (60-110) mg/dL Calcium (8.5-10.1) mg/dL Phosphorus (2.6-4.7) mg/dL Magnesium (1.8-2.4) mg/dL Total Bilirubin (0.2-1.0) mg/dL AST (15-37) IU/L ALT (14-63) IU/L Alkaline Phosphatase (46-116) U/L Troponin I (0.000-0.056) ng/mL B-Natriuretic Peptide 2252 H (<100) PG/ML Total Protein (6.4-8.2) g/dL Albumin (3.4-5.0) g/dL Globulin (2.6-4.0) g/dL Albumin/Globulin Ratio (0.9-1.6) Lipase (73-393) U/L Free T4 1.02 (0.76-1.46) ng/dL TSH 3rd Generation (0.36-3.74) uIU/mL Urine Color Urine Appearance Urine pH (5.0-8.0) Ur Specific [place] (1.001-1.035) Urine Protein (NEGATIVE) mg/dL Urine Glucose (UA) (NEGATIVE) mg/dL Urine Ketones (NEGATIVE) mg/dL Urine Occult Blood (NEGATIVE) Urine Nitrite (NEGATIVE) Urine Bilirubin (NEGATIVE) Urine Urobilinogen (<2.0) EU/dL Ur Leukocyte Esterase (NEGATIVE) U Hyaline Cast (Auto) (0-2/LPF) Urine RBC (0-2/HPF) Urine WBC (0-5/HPF) Ur Epithelial Cells (NONE-FEW) Urine Bacteria (NEGATIVE) Urine Mucus (NONE-MOD) Salicylates 1.2 (0-20) mg/dL Urine Opiates Screen (NEGATIVE) Ur Oxycodone Screen (NEGATIVE) Urine Methadone Screen (NEGATIVE) Acetaminophen <2.0 ug/mL Ur Barbiturates Screen (NEGATIVE) Ur Phencyclidine Scrn (NEGATIVE) Ur Amphetamine Screen (NEGATIVE) U Methamphetamines Scrn (NEGATIVE) U Benzodiazepines Scrn (NEGATIVE) U Cocaine Metab Screen (NEGATIVE) U Marijuana (THC) Screen (NEGATIVE) 07/24/19 07/25/19 07/25/19 Range/Units 20:55 05:11 05:11 WBC (4.0-11.0) K/uL RBC (4.50-5.90) M/uL Hgb (13.0-17.0) g/dL Hct (38.0-50.0) % MCV (80.0-98.0) fL MCH (27.0-32.0) pg MCHC (31.0-37.0) g/dL RDW Std Deviation (28.0-62.0) fl RDW Coeff of Theresa (11.0-15.0) % Plt Count (150-400) K/uL MPV (7.40-12.00) fL Neut % (Auto) (48.0-80.0) % Lymph % (Auto) (16.0-40.0) % [place] % (Auto) (0.0-15.0) % Eos % (Auto) (0.0-7.0) % Baso % (Auto) (0.0-1.5) % Neut # (Auto) (1.4-5.7) K/uL Lymph # (Auto) (0.6-2.4) K/uL [place] # (Auto) (0.0-0.8) K/uL Eos # (Auto) (0.0-0.7) K/uL Baso # (Auto) (0.0-0.1) K/uL Nucleated RBC % /100WBC Nucleated RBCs # K/uL ESR (0-19) mm/hr INR D-Dimer, Quantitative (0.0-0.50) mg/L FEU Sodium (136-148) mmol/L Potassium (3.5-5.1) mmol/L Chloride (98-107) mmol/L Carbon Dioxide (21.0-32.0) mmol/L BUN (7.0-18.0) mg/dL Creatinine (0.8-1.3) mg/dL Est Cr Clr Drug Dosing mL/min Estimated GFR (MDRD) ml/min Glucose (74-106) mg/dL POC Glucose (60-110) mg/dL Calcium (8.5-10.1) mg/dL Phosphorus 5.3 H (2.6-4.7) mg/dL Magnesium 1.5 L (1.8-2.4) mg/dL Total Bilirubin (0.2-1.0) mg/dL AST (15-37) IU/L ALT (14-63) IU/L Alkaline Phosphatase (46-116) U/L Troponin I (0.000-0.056) ng/mL B-Natriuretic Peptide (<100) PG/ML Total Protein (6.4-8.2) g/dL Albumin (3.4-5.0) g/dL Globulin (2.6-4.0) g/dL Albumin/Globulin Ratio (0.9-1.6) Lipase (73-393) U/L Free T4 (0.76-1.46) ng/dL TSH 3rd Generation (0.36-3.74) uIU/mL Urine Color YELLOW Urine Appearance CLEAR Urine pH 5.5 (5.0-8.0) Ur Specific [place] 1.025 (1.001-1.035) Urine Protein 30 H (NEGATIVE) mg/dL Urine Glucose (UA) NEGATIVE (NEGATIVE) mg/dL Urine Ketones TRACE H (NEGATIVE) mg/dL Urine Occult Blood NEGATIVE (NEGATIVE) Urine Nitrite NEGATIVE (NEGATIVE) Urine Bilirubin NEGATIVE (NEGATIVE) Urine Urobilinogen 1.0 (<2.0) EU/dL Ur Leukocyte Esterase SMALL H (NEGATIVE) U Hyaline Cast (Auto) 4-6 (0-2/LPF) Urine RBC 0-1 (0-2/HPF) Urine WBC 0-3 (0-5/HPF) Ur Epithelial Cells FEW (NONE-FEW) Urine Bacteria FEW (NEGATIVE) Urine Mucus LIGHT (NONE-MOD) Salicylates (0-20) mg/dL Urine Opiates Screen NEGATIVE (NEGATIVE) Ur Oxycodone Screen NEGATIVE (NEGATIVE) Urine Methadone Screen NEGATIVE (NEGATIVE) Acetaminophen ug/mL Ur Barbiturates Screen NEGATIVE (NEGATIVE) Ur Phencyclidine Scrn NEGATIVE (NEGATIVE) Ur Amphetamine Screen NEGATIVE (NEGATIVE) U Methamphetamines Scrn NEGATIVE (NEGATIVE) U Benzodiazepines Scrn NEGATIVE (NEGATIVE) U Cocaine Metab Screen NEGATIVE (NEGATIVE) U Marijuana (THC) Screen NEGATIVE (NEGATIVE) 07/25/19 Range/Units 06:58 WBC (4.0-11.0) K/uL RBC (4.50-5.90) M/uL Hgb (13.0-17.0) g/dL Hct (38.0-50.0) % MCV (80.0-98.0) fL MCH (27.0-32.0) pg MCHC (31.0-37.0) g/dL RDW Std Deviation (28.0-62.0) fl RDW Coeff of Theresa (11.0-15.0) % Plt Count (150-400) K/uL MPV (7.40-12.00) fL Neut % (Auto) (48.0-80.0) % Lymph % (Auto) (16.0-40.0) % [place] % (Auto) (0.0-15.0) % Eos % (Auto) (0.0-7.0) % Baso % (Auto) (0.0-1.5) % Neut # (Auto) (1.4-5.7) K/uL Lymph # (Auto) (0.6-2.4) K/uL [place] # (Auto) (0.0-0.8) K/uL Eos # (Auto) (0.0-0.7) K/uL Baso # (Auto) (0.0-0.1) K/uL Nucleated RBC % /100WBC Nucleated RBCs # K/uL ESR (0-19) mm/hr INR D-Dimer, Quantitative (0.0-0.50) mg/L FEU Sodium (136-148) mmol/L Potassium (3.5-5.1) mmol/L Chloride (98-107) mmol/L Carbon Dioxide (21.0-32.0) mmol/L BUN (7.0-18.0) mg/dL Creatinine (0.8-1.3) mg/dL Est Cr Clr Drug Dosing mL/min Estimated GFR (MDRD) ml/min Glucose (74-106) mg/dL POC Glucose 135 H (60-110) mg/dL Calcium (8.5-10.1) mg/dL Phosphorus (2.6-4.7) mg/dL Magnesium (1.8-2.4) mg/dL Total Bilirubin (0.2-1.0) mg/dL AST (15-37) IU/L ALT (14-63) IU/L Alkaline Phosphatase (46-116) U/L Troponin I (0.000-0.056) ng/mL B-Natriuretic Peptide (<100) PG/ML Total Protein (6.4-8.2) g/dL Albumin (3.4-5.0) g/dL Globulin (2.6-4.0) g/dL Albumin/Globulin Ratio (0.9-1.6) Lipase (73-393) U/L Free T4 (0.76-1.46) ng/dL TSH 3rd Generation (0.36-3.74) uIU/mL Urine Color Urine Appearance Urine pH (5.0-8.0) Ur Specific [place] (1.001-1.035) Urine Protein (NEGATIVE) mg/dL Urine Glucose (UA) (NEGATIVE) mg/dL Urine Ketones (NEGATIVE) mg/dL Urine Occult Blood (NEGATIVE) Urine Nitrite (NEGATIVE) Urine Bilirubin (NEGATIVE) Urine Urobilinogen (<2.0) EU/dL Ur Leukocyte Esterase (NEGATIVE) U Hyaline Cast (Auto) (0-2/LPF) Urine RBC (0-2/HPF) Urine WBC (0-5/HPF) Ur Epithelial Cells (NONE-FEW) Urine Bacteria (NEGATIVE) Urine Mucus (NONE-MOD) Salicylates (0-20) mg/dL Urine Opiates Screen (NEGATIVE) Ur Oxycodone Screen (NEGATIVE) Urine Methadone Screen (NEGATIVE) Acetaminophen ug/mL Ur Barbiturates Screen (NEGATIVE) Ur Phencyclidine Scrn (NEGATIVE) Ur Amphetamine Screen (NEGATIVE) U Methamphetamines Scrn (NEGATIVE) U Benzodiazepines Scrn (NEGATIVE) U Cocaine Metab Screen (NEGATIVE) U Marijuana (THC) Screen (NEGATIVE) Result Diagrams: 07/25/19 10:10 07/25/19 10:10 Sepsis Event Note - Evaluation Sepsis Screening Result: No Definite Risk - Focused Exam Vital Signs: Vital Signs Temp Pulse Pulse Resp BP BP Pulse Ox 07/25/19 08:17 78 134/43 L 07/25/19 07:48 36.3 C 78 20 130/60 98 07/25/19 03:45 36.2 C 80 23 H 133/59 L 100 07/25/19 00:37 67 122/55 L 100 07/24/19 23:37 69 111/56 L 100 07/24/19 23:00 66 16 111/55 L 100 07/24/19 22:30 71 18 110/57 L 100 07/24/19 22:00 69 18 123/55 L 99 Date Exam was Performed: 07/25/19 Time Exam was Performed: 15:53 - Problem List (1) Generalized weakness SNOMED Code(s): 68036366 ICD Code: R53.1 - WEAKNESS Status: Acute Current Visit: Yes (2) Atrial fibrillation SNOMED Code(s): 16270013 ICD Code: I48.91 - UNSPECIFIED ATRIAL FIBRILLATION Status: Acute Current Visit: No (3) Congestive heart failure SNOMED Code(s): 46855947 ICD Code: I50.9 - HEART FAILURE, UNSPECIFIED Status: Acute Current Visit : No Problem List Initiated/Reviewed/Updated: Yes Orders Last 24hrs: Active Orders 24 hr Category Date Time Status Patient Status [ADT] Stat ADT 07/25/19 02:09 Active Blood Glucose Check, Bedside [RC] TIDMEALS Care 07/25/19 04:44 Active Communication Order [RC] PRN Care 07/25/19 06:42 Active Oxygen Therapy [RC] ASDIRECTED Care 07/25/19 04:44 Active RT Aerosol Therapy [RC] ASDIRECTED Care 07/25/19 04:45 Active Telemetry Monitoring [Cardiac Monitoring] [RC] . Care 07/25/19 02:28 Active DIRECTED Vital Signs [RC] Q4H Care 07/25/19 04:44 Active Heart Healthy Diet [DIET] Diet 07/25/19 Breakfast Active Ang Chest [CT] Routine Exams 07/25/19 04:44 Ordered Venous Doppler Lwr Ext Lt [US] Routine Exams 07/25/19 04:44 Ordered BASIC METABOLIC PANEL,BMP [CHEM] AM Lab 07/26/19 05:11 Ordered CBC WITH AUTO DIFF [HEME] AM Lab 07/26/19 05:11 Ordered MAGNESIUM [CHEM] AM Lab 07/26/19 05:11 Ordered PHOSPHORUS [CHEM] AM Lab 07/26/19 05:11 Ordered Albuterol/Ipratropium [DuoNeb 3.0-0.5 MG/3 ML] Med 07/25/19 04:44 Active 3 ml NEB Q4HRRT PRN Beta-Carotene(A) w/C & E/Min [Prosight] Med 07/25/19 09:00 Active 1 tab PO BID Cholecalciferol (Vitamin D3) [Vitamin D3] Med 07/25/19 09:00 Active 50 mcg PO DAILY Furosemide [Lasix] Med 07/25/19 09:00 Active 60 mg PO DAILY Insulin Aspart [NovoLOG] Med 07/25/19 07:30 Active See Protocol SUBCUT TIDAC Metoprolol Tartrate [Lopressor] Med 07/25/19 09:00 Active 100 mg PO BID Nystatin [Nystatin Crm] Med 07/25/19 09:00 Active 1 gm TOP BID Pantoprazole [ProTONIX IV] 40 mg Med 07/25/19 09:00 Active Sodium Chloride 0.9% [Normal Saline] 10 ml IV BID Patient's Own Medication [Ptom] Med 07/25/19 05:32 Active 1 each EYERT ASDIRECTED PRN Sucralfate [Carafate] Med 07/25/19 07:30 Active 1 gm PO QIDACANDBED atorvaSTATin [Lipitor] Med 07/25/19 21:00 Active 40 mg PO BEDTIME ED Alcohol and Substance Abuse Reflex [OM.PC] Click To Oth 07/24/19 21:37 Ordered Edit Medication Orders Albuterol/Ipratropium (Duoneb 3.0-0.5 Mg/3 Ml) 3 ml NEB Q4HRRT PRN PRN Reason: Shortness of Breath Atorvastatin Calcium (Lipitor) 40 mg PO BEDTIME [facility] Cholecalciferol (Vitamin D3) 50 mcg PO DAILY [facility] Last Admin: 07/25/19 08:16 Dose: 50 mcg Furosemide (Lasix) 60 mg PO DAILY [facility] Last Admin: 07/25/19 08:16 Dose: 60 mg Pantoprazole Sodium 40 mg/ (Sodium Chloride) 10 mls @ 300 mls/hr IV BID [facility] Last Admin: 07/25/19 08:17 Dose: 300 mls/hr Insulin Aspart (Novolog) 0 unit SUBCUT TIDAC [facility]; Protocol Last Admin: 07/25/19 07:00 Dose: Metoprolol Tartrate (Lopressor) 100 mg PO BID [facility] Last Admin: 07/25/19 08:17 Dose: 100 mg Multivitamins/Minerals (Prosight) 1 tab PO BID [facility] Last Admin: 07/25/19 08:16 Dose: 1 tab Nystatin (Nystatin Crm) 1 gm TOP BID [facility] Last Admin: 07/25/19 08:18 Dose: Tetrahydrozoline Hcl ([Visine] 1 Drop) 1 each EYERT ASDIRECTED PRN PRN Reason: Dry Eyes Sucralfate (Carafate) 1 gm PO QIDACANDBED [facility] Last Admin: 07/25/19 06:54 Dose: 1 gm Assessment/Plan Comment:: A/P: 83 y/o M comes in for generalized weakness, YOUNGER D-dimer high but patient in Eliquis and no documented hypoxia, doubt PE, USG Doppler Cont oxygenation via NC Anemic, Hb dropped this AM but did et some IV fluids in ER, could be dilutional. No active bleeding so far, check stool occult, start IV PPI Will keep 2 units of PRBC on hold in case needs transfusion, Goal of HB>8.0 CASSIE slightly better, will cont PO Lasix as not in overt failure, but give as needed IV Lasix UA shows UTI, f/u on Urine and blood cultures Cont IV Rocephin Patient seems to be very frustrated with her poor health and says he feels very depressed, could secondary to acute illness Will cont to monitor closely, may need to start antidepressant if persists.
[2019-07-25 10:34] LABS: CARBON DIOXIDE,CO2 27.5 mmol/L (21.0-32.0); POTASSIUM,K 4.6 mmol/L (3.5-5.1)
--- NOTE | 2019-07-25 11:27 | US ---
Left lower extremity deep venous ultrasound: Duplex and color Doppler evaluation left common femoral, superficial femoral, popliteal, peroneal and posterior tibial veins were obtained. Comparison: No prior venous imaging. Findings: Normal Doppler blood flow and compression is seen. Subcutaneous edema is noted within the left lower extremity. Impression: 1. Subcutaneous edema within the left lower extremity. 2. No evidence of deep venous thrombosis within the left lower extremity. Diagnostic code #2 This report was dictated in [place] Standard Time
[2019-07-25] MEDS ORDERED: Furosemide 20 MG/2 ML VIAL IVPUSH ONE (12:15)
[2019-07-25] MEDS: Furosemide 20 MG/2 ML VIAL IVPUSH ONE (12:21)
[2019-07-25] MEDS ORDERED: Aluminum Hydroxide/Magnesium Hydroxide/Simethicone Susp 30 ML Cup PO ONE (12:39)
[2019-07-25] MEDS ORDERED: methylPREDNISolone Sodium Succinate 40 MG/1 ML SDV IV ONE (14:00)
[2019-07-25] MEDS: cefTRIAXone 1 GM in Sodium Chloride 0.9% 50 ML IV SCH (14:32)
[2019-07-25] MEDS ORDERED: methylPREDNISolone Sodium Succinate 125 MG/2 ML SDV IVPUSH ONE (16:18)
[2019-07-25] MEDS: Citalopram 20 MG Tab PO SCH (16:50)
[2019-07-25] MEDS: Apixaban 2.5 MG Tab PO SCH (20:17)
[2019-07-25] MEDS: atorvaSTATin 40 MG Tab PO SCH (20:17)
[2019-07-26] MEDS: cefTRIAXone 1 GM in Sodium Chloride 0.9% 50 ML IV SCH (00:46)
[2019-07-26] MEDS: Acetaminophen 325 MG Tab PO PRN ×2 (04:09→18:30)
[2019-07-26 06:37] LABS: CARBON DIOXIDE,CO2 24.1 mmol/L (21.0-32.0); POTASSIUM,K 5.3 mmol/L (3.5-5.1)
[2019-07-26] MEDS: Sucralfate Suspension 1 GM/10 ML Cup PO SCH ×4 (06:38→21:11)
[2019-07-26] MEDS: Insulin Aspart 100 Units/ML 3 ML Pen SUBCUT SCH ×3 (07:30→18:26)
--- NOTE | 2019-07-26 09:10 | US ---
Right lower extremity deep venous ultrasound: Duplex and color Doppler evaluation was obtained of the right common femoral, superficial femoral, popliteal, posterior tibial and peroneal veins. Mild subcutaneous edema is noted within the right lower extremity. Normal compression and augmentation is seen. Impression: 1. Subcutaneous edema. 2. No findings of deep venous thrombosis within the right lower extremity. Diagnostic code #2 This report was dictated in [place] Standard Time
[2019-07-26] MEDS: Citalopram 20 MG Tab PO SCH (09:31)
[2019-07-26] MEDS: Apixaban 2.5 MG Tab PO SCH (09:33)
[2019-07-26] MEDS: Furosemide 20 MG Tab PO SCH (09:35)
[2019-07-26] MEDS: Cholecalciferol (Vitamin D3) 25 MCG Tab PO SCH (09:41)
[2019-07-26] MEDS: Beta-Carotene (Vitamin A) w/Vitamin C & E plus Minerals Tab PO SCH ×2 (09:41→21:12)
[2019-07-26] MEDS: Nystatin Crm 30 GM Tube TOP SCH ×2 (09:44→23:16)
[2019-07-26] MEDS: Metoprolol Tartrate 50 MG Tab PO SCH ×2 (09:46→21:11)
--- NOTE | 2019-07-26 09:48 | PCM.PN ---
<Eliazar Moran - Last Filed: 07/26/19 13:46> - General Info Date of Service: 07/26/19 Subjective Update: No acute events overnight. States he feels somewhat better this morning. Endorses some dyspnea. No chest pain, abdominal pain. - Patient Data Vitals - Most Recent: Last Vital Signs Temp 35.8 C 07/26/19 07:51 Pulse 66 07/26/19 09:46 Resp 17 07/26/19 03:55 BP 125/51 L 07/26/19 09:46 Pulse Ox 96 07/26/19 07:51 Weight - Most Recent: 81.7 kg I&O - Last 24 Hours: Intake & Output 07/25/19 07/26/19 07/26/19 22:59 06:59 14:59 Intake Total 626 660 Output Total 720 450 Balance -94 210 Lab Results Last 24 Hours: Laboratory Results - last 24 hr 07/25/19 07/25/19 07/25/19 Range/Units 10:10 10:10 10:10 WBC 4.06 (4.0-11.0) K/uL RBC 3.31 L (4.50-5.90) M/uL Hgb 8.1 L (13.0-17.0) g/dL Hct 27.0 L (38.0-50.0) % MCV 81.6 (80.0-98.0) fL MCH 24.5 L (27.0-32.0) pg MCHC 30.0 L (31.0-37.0) g/dL RDW Std Deviation 52.8 (28.0-62.0) fl RDW Coeff of Theresa 18 H (11.0-15.0) % Plt Count 142 L (150-400) K/uL MPV 9.50 (7.40-12.00) fL Neut % (Auto) 65.1 (48.0-80.0) % Lymph % (Auto) 19.2 (16.0-40.0) % [place] % (Auto) 14.8 (0.0-15.0) % Eos % (Auto) 0.7 (0.0-7.0) % Baso % (Auto) 0.2 (0.0-1.5) % Neut # (Auto) 2.6 (1.4-5.7) K/uL Lymph # (Auto) 0.8 (0.6-2.4) K/uL [place] # (Auto) 0.6 (0.0-0.8) K/uL Eos # (Auto) 0.0 (0.0-0.7) K/uL Baso # (Auto) 0.0 (0.0-0.1) K/uL Nucleated RBC % 0.0 /100WBC Nucleated RBCs # 0 K/uL Sodium 138 (136-148) mmol/L Potassium 4.6 (3.5-5.1) mmol/L Chloride 103 (98-107) mmol/L Carbon Dioxide 27.5 (21.0-32.0) mmol/L BUN 41 H (7.0-18.0) mg/dL Creatinine 1.7 H (0.8-1.3) mg/dL Est Cr Clr Drug Dosing 32.53 mL/min Estimated GFR (MDRD) 38.8 ml/min Glucose 171 H (74-106) mg/dL POC Glucose (60-110) mg/dL Calcium 8.2 L (8.5-10.1) mg/dL Phosphorus 4.4 (2.6-4.7) mg/dL Magnesium 1.4 L (1.8-2.4) mg/dL B-Natriuretic Peptide 1402 H (<100) PG/ML Blood Type Antibody Screen Crossmatch 07/25/19 07/25/19 07/25/19 Range/Units 11:47 16:23 17:23 WBC (4.0-11.0) K/uL RBC (4.50-5.90) M/uL Hgb (13.0-17.0) g/dL Hct (38.0-50.0) % MCV (80.0-98.0) fL MCH (27.0-32.0) pg MCHC (31.0-37.0) g/dL RDW Std Deviation (28.0-62.0) fl RDW Coeff of Theresa (11.0-15.0) % Plt Count (150-400) K/uL MPV (7.40-12.00) fL Neut % (Auto) (48.0-80.0) % Lymph % (Auto) (16.0-40.0) % [place] % (Auto) (0.0-15.0) % Eos % (Auto) (0.0-7.0) % Baso % (Auto) (0.0-1.5) % Neut # (Auto) (1.4-5.7) K/uL Lymph # (Auto) (0.6-2.4) K/uL [place] # (Auto) (0.0-0.8) K/uL Eos # (Auto) (0.0-0.7) K/uL Baso # (Auto) (0.0-0.1) K/uL Nucleated RBC % /100WBC Nucleated RBCs # K/uL Sodium (136-148) mmol/L Potassium (3.5-5.1) mmol/L Chloride (98-107) mmol/L Carbon Dioxide (21.0-32.0) mmol/L BUN (7.0-18.0) mg/dL Creatinine (0.8-1.3) mg/dL Est Cr Clr Drug Dosing mL/min Estimated GFR (MDRD) ml/min Glucose (74-106) mg/dL POC Glucose 211 H 231 H (60-110) mg/dL Calcium (8.5-10.1) mg/dL Phosphorus (2.6-4.7) mg/dL Magnesium (1.8-2.4) mg/dL B-Natriuretic Peptide (<100) PG/ML Blood Type A POSITIVE Antibody Screen NEGATIVE Crossmatch See Detail 07/26/19 07/26/19 07/26/19 Range/Units 06:00 06:00 06:34 WBC 3.30 L (4.0-11.0) K/uL RBC 3.41 L (4.50-5.90) M/uL Hgb 8.3 L (13.0-17.0) g/dL Hct 27.4 L (38.0-50.0) % MCV 80.4 (80.0-98.0) fL MCH 24.3 L (27.0-32.0) pg MCHC 30.3 L (31.0-37.0) g/dL RDW Std Deviation 52.6 (28.0-62.0) fl RDW Coeff of Theresa 18 H (11.0-15.0) % Plt Count 145 L (150-400) K/uL MPV 10.00 (7.40-12.00) fL Neut % (Auto) 81.5 H (48.0-80.0) % Lymph % (Auto) 17.0 (16.0-40.0) % [place] % (Auto) 1.5 (0.0-15.0) % Eos % (Auto) 0.0 (0.0-7.0) % Baso % (Auto) 0.0 (0.0-1.5) % Neut # (Auto) 2.7 (1.4-5.7) K/uL Lymph # (Auto) 0.6 (0.6-2.4) K/uL [place] # (Auto) 0.1 (0.0-0.8) K/uL Eos # (Auto) 0.0 (0.0-0.7) K/uL Baso # (Auto) 0.0 (0.0-0.1) K/uL Nucleated RBC % 0.0 /100WBC Nucleated RBCs # 0 K/uL Sodium 137 (136-148) mmol/L Potassium 5.3 H (3.5-5.1) mmol/L Chloride 101 (98-107) mmol/L Carbon Dioxide 24.1 (21.0-32.0) mmol/L BUN 45 H (7.0-18.0) mg/dL Creatinine 1.9 H (0.8-1.3) mg/dL Est Cr Clr Drug Dosing 29.11 mL/min Estimated GFR (MDRD) 34.1 ml/min Glucose 326 H (74-106) mg/dL POC Glucose 388 H (60-110) mg/dL Calcium 8.7 (8.5-10.1) mg/dL Phosphorus 5.8 H (2.6-4.7) mg/dL Magnesium 1.9 (1.8-2.4) mg/dL B-Natriuretic Peptide (<100) PG/ML Blood Type Antibody Screen Crossmatch Florentino Results Last 24 Hours: Microbiology 07/26/19 05:00 Stool Occult Blood (FLORENTINO) - Final Stool / Feces 07/25/19 13:10 Anaerobic Blood Culture - Final Blood - Venous - Lab Draw Med Orders - Current: Current Medications Acetaminophen (Tylenol) 650 mg PO Q6H PRN PRN Reason: Pain Last Admin: 07/26/19 04:09 Dose: 650 mg Albuterol/Ipratropium (Duoneb 3.0-0.5 Mg/3 Ml) 3 ml NEB Q4HRRT PRN PRN Reason: Shortness of Breath Apixaban (Eliquis) 2.5 mg PO BID [facility] Last Admin: 07/26/19 09:33 Dose: 2.5 mg Atorvastatin Calcium (Lipitor) 40 mg PO BEDTIME [facility] Last Admin: 07/25/19 20:17 Dose: 40 mg Cholecalciferol (Vitamin D3) 50 mcg PO DAILY [facility] Last Admin: 07/26/19 09:41 Dose: 50 mcg Citalopram Hydrobromide (Celexa) 20 mg PO DAILY [facility] Last Admin: 07/26/19 09:31 Dose: 20 mg Furosemide (Lasix) 60 mg PO DAILY [facility] Last Admin: 07/26/19 09:35 Dose: 60 mg Pantoprazole Sodium 40 mg/ (Sodium Chloride) 10 mls @ 300 mls/hr IV BID [facility] Last Admin: 07/25/19 20:17 Dose: 300 mls/hr Ceftriaxone Sodium 1 gm/ (Sodium Chloride) 50 mls @ 100 mls/hr IV Q12H [facility] Last Admin: 07/26/19 00:46 Dose: 100 mls/hr Insulin Aspart (Novolog) 0 unit SUBCUT TIDAC [facility]; Protocol Last Admin: 07/26/19 07:30 Dose: 5 units Levothyroxine Sodium (Levothyroxine) 25 mcg PO ACBREAKFAST [facility] Metoprolol Tartrate (Lopressor) 100 mg PO BID [facility] Last Admin: 07/26/19 09:46 Dose: 100 mg Multivitamins/Minerals (Prosight) 1 tab PO BID [facility] Last Admin: 07/26/19 09:41 Dose: 1 tab Nystatin (Nystatin Crm) 1 gm TOP BID [facility] Last Admin: 07/26/19 09:44 Dose: 1 gm Tetrahydrozoline Hcl ([Visine] 1 Drop) 1 each EYERT ASDIRECTED PRN PRN Reason: Dry Eyes Sucralfate (Carafate) 1 gm PO QIDACANDBED [facility] Last Admin: 07/26/19 06:38 Dose: 1 gm Discontinued Medications Acetaminophen (Tylenol Extra Strength) 1,000 mg PO ONETIME ONE Stop: 07/24/19 21:05 Last Admin: 07/24/19 21:31 Dose: 1,000 mg Al Hydroxide/Mg Hydroxide (Mag-Al Plus) 30 ml PO ONETIME ONE Stop: 07/25/19 12:40 Last Admin: 07/25/19 13:01 Dose: 30 ml Enoxaparin Sodium (Lovenox) 90 mg SUBCUT ONETIME ONE Stop: 07/25/19 02:04 Last Admin: 07/25/19 02:48 Dose: 90 mg Furosemide (Lasix) 20 mg IVPUSH ONETIME ONE Stop: 07/25/19 09:56 Last Admin: 07/25/19 12:21 Dose: Not Given Furosemide (Lasix) 20 mg IVPUSH ONETIME ONE Stop: 07/25/19 12:16 Last Admin: 07/25/19 12:14 Dose: 20 mg Sodium Chloride (Normal Saline) 250 mls @ 125 mls/hr IV ASDIRECTED [facility] Last Admin: 07/25/19 02:53 Dose: 125 mls/hr Magnesium Sulfate 2 gm/ Premix 50 mls @ 50 mls/hr IV ONETIME ONE Stop: 07/25/19 10:47 Last Admin: 07/25/19 12:21 Dose: Not Given Magnesium Sulfate 2 gm/ Premix 50 mls @ 50 mls/hr IV ONETIME ONE Stop: 07/25/19 13:14 Last Admin: 07/25/19 12:20 Dose: 50 mls/hr Methylprednisolone Sodium Succinate (Solu-Medrol) 40 mg IV ONETIME ONE Stop: 07/25/19 14:01 Last Admin: 07/25/19 14:25 Dose: 40 mg Methylprednisolone Sodium Succinate (Solu-Medrol) 125 mg IVPUSH ONETIME ONE Stop: 07/25/19 16:19 Last Admin: 07/25/19 16:50 Dose: 125 mg - Exam General: Alert, Oriented, Cooperative, No Acute Distress Lungs: Clear to Auscultation, Normal Respiratory Effort. No: Crackles, Wheezing Cardiovascular: Regular Rate, Irregular Rhythm GI/Abdominal Exam: Normal Bowel Sounds, Soft, Non-Tender, No Distention Extremities: Other (2+ pedal edema bilaterally) Sepsis Event Note - Evaluation Sepsis Screening Result: No Definite Risk - Focused Exam Vital Signs: Vital Signs Temp Pulse Pulse Resp BP BP Pulse Ox 07/26/19 09:46 66 125/51 L 07/26/19 07:51 35.8 C 91 133/83 96 07/26/19 03:55 36.4 C 81 17 139/61 92 L 07/25/19 23:36 36.9 C 94 14 123/63 94 L Date Exam was Performed: 07/26/19 Time Exam was Performed: 13:46 - Problem List Review Problem List Initiated/Reviewed/Updated: Yes - My Orders Last 24 Hours: My Active Orders 07/26/19 06:00 B-TYPE NATRIURETIC PEPTIDE,BNP [CHEM] Routine T3 FREE [CHEM] Routine 07/26/19 09:20 Levothyroxine 25 mcg PO ACBREAKFAST 07/26/19 09:29 Intake and Output Strict [RC] ASDIRECTED 07/26/19 18:00 HGB [HEMOGLOBIN] [HEME] Q12H 07/27/19 05:11 CBC WITH AUTO DIFF [HEME] AM COMPREHENSIVE METABOLIC PN,CMP [CHEM] AM 07/27/19 06:00 HGB [HEMOGLOBIN] [HEME] Q12H 07/27/19 18:00 HGB [HEMOGLOBIN] [HEME] Q12H 07/28/19 05:11 CBC WITH AUTO DIFF [HEME] AM COMPREHENSIVE METABOLIC PN,CMP [CHEM] AM 07/28/19 06:00 HGB [HEMOGLOBIN] [HEME] Q12H 07/29/19 05:11 CBC WITH AUTO DIFF [HEME] AM COMPREHENSIVE METABOLIC PN,CMP [CHEM] AM - Plan Plan:: A: 1. Acute on chronic CHF exacerbation 2. Blood loss anemia 3. Chronic pulmonary embolism 4. Atrial fibrillation, rate controlled 5. Hyperkalemia 6. Hyperphosphatemia 7. Hypothyroidism 8. Urinary tract infection P: 1. Acute on chronic CHF exacerbation. Unsure if he is fluid overloaded or fluid down since his Cr is increasing. Will try bolus 500 mls LR once and see how he does this afternoon. 2. Blood loss anemia. Stable Hg of 8.0. Will stop Eliquis for now and monitor Hg q12H. Transfuse if Hg<8. Continue with Protonix IV, carafate. 3. Chronic PE- will hold Eliquis for now due to positive FOBT. 4. Afib, rate controlled. Will hold Eliquis due to blood loss anemia. Continue with metoprolol. 5. Hypothyroidism- will start Levothyroxine 25 mcg PO daily due to symptomatic hypothyroidism. 6. UTI- continue ceftriaxone. pending urine culture. dispo: 1-2 days. <Mt Jose - Last Filed: 07/27/19 19:56> - Patient Data Vitals - Most Recent: Last Vital Signs Temp 36.7 C 07/27/19 19:54 Pulse 81 07/27/19 19:54 Resp 18 07/27/19 19:54 BP 142/61 H 07/27/19 19:54 Pulse Ox 96 07/27/19 19:54 I&O - Last 24 Hours: Intake & Output 07/27/19 07/27/19 07/27/19 06:59 14:59 22:59 Intake Total 300 520 Output Total 500 660 Balance -200 -140 Lab Results Last 24 Hours: Laboratory Results - last 24 hr 07/26/19 07/26/19 07/27/19 Range/Units 20:38 23:04 06:05 WBC 5.55 (4.0-11.0) K/uL RBC 3.47 L (4.50-5.90) M/uL Hgb 8.5 L (13.0-17.0) g/dL Hct 27.7 L (38.0-50.0) % MCV 79.8 L (80.0-98.0) fL MCH 24.5 L (27.0-32.0) pg MCHC 30.7 L (31.0-37.0) g/dL RDW Std Deviation 51.3 (28.0-62.0) fl RDW Coeff of Theresa 18 H (11.0-15.0) % Plt Count 144 L (150-400) K/uL MPV 10.20 (7.40-12.00) fL Neut % (Auto) 67.5 (48.0-80.0) % Lymph % (Auto) 16.4 (16.0-40.0) % [place] % (Auto) 15.7 H (0.0-15.0) % Eos % (Auto) 0.2 (0.0-7.0) % Baso % (Auto) 0.2 (0.0-1.5) % Neut # (Auto) 3.8 (1.4-5.7) K/uL Lymph # (Auto) 0.9 (0.6-2.4) K/uL [place] # (Auto) 0.9 H (0.0-0.8) K/uL Eos # (Auto) 0.0 (0.0-0.7) K/uL Baso # (Auto) 0.0 (0.0-0.1) K/uL Nucleated RBC % 0.0 /100WBC Nucleated RBCs # 0 K/uL Sodium (136-148) mmol/L Potassium (3.5-5.1) mmol/L Chloride (98-107) mmol/L Carbon Dioxide (21.0-32.0) mmol/L BUN (7.0-18.0) mg/dL Creatinine (0.8-1.3) mg/dL Est Cr Clr Drug Dosing mL/min Estimated GFR (MDRD) ml/min Glucose (74-106) mg/dL POC Glucose 260 H (60-110) mg/dL Calcium (8.5-10.1) mg/dL Total Bilirubin (0.2-1.0) mg/dL AST (15-37) IU/L ALT (14-63) IU/L Alkaline Phosphatase (46-116) U/L Troponin I < 0.050 (0.000-0.056) ng/mL Total Protein (6.4-8.2) g/dL Albumin (3.4-5.0) g/dL Globulin (2.6-4.0) g/dL Albumin/Globulin Ratio (0.9-1.6) 07/27/19 07/27/19 07/27/19 Range/Units 06:05 06:34 11:45 WBC (4.0-11.0) K/uL RBC (4.50-5.90) M/uL Hgb (13.0-17.0) g/dL Hct (38.0-50.0) % MCV (80.0-98.0) fL MCH (27.0-32.0) pg MCHC (31.0-37.0) g/dL RDW Std Deviation (28.0-62.0) fl RDW Coeff of Theresa (11.0-15.0) % Plt Count (150-400) K/uL MPV (7.40-12.00) fL Neut % (Auto) (48.0-80.0) % Lymph % (Auto) (16.0-40.0) % [place] % (Auto) (0.0-15.0) % Eos % (Auto) (0.0-7.0) % Baso % (Auto) (0.0-1.5) % Neut # (Auto) (1.4-5.7) K/uL Lymph # (Auto) (0.6-2.4) K/uL [place] # (Auto) (0.0-0.8) K/uL Eos # (Auto) (0.0-0.7) K/uL Baso # (Auto) (0.0-0.1) K/uL Nucleated RBC % /100WBC Nucleated RBCs # K/uL Sodium 141 (136-148) mmol/L Potassium 4.6 (3.5-5.1) mmol/L Chloride 103 (98-107) mmol/L Carbon Dioxide 26.7 (21.0-32.0) mmol/L BUN 46 H (7.0-18.0) mg/dL Creatinine 1.9 H (0.8-1.3) mg/dL Est Cr Clr Drug Dosing 29.11 mL/min Estimated GFR (MDRD) 34.1 ml/min Glucose 180 H (74-106) mg/dL POC Glucose 167 H 274 H (60-110) mg/dL Calcium 8.3 L (8.5-10.1) mg/dL Total Bilirubin 0.3 (0.2-1.0) mg/dL AST 47 H (15-37) IU/L ALT 61 (14-63) IU/L Alkaline Phosphatase 113 (46-116) U/L Troponin I (0.000-0.056) ng/mL Total Protein 5.9 L (6.4-8.2) g/dL Albumin 3.1 L (3.4-5.0) g/dL Globulin 2.8 (2.6-4.0) g/dL Albumin/Globulin Ratio 1.1 (0.9-1.6) 07/27/19 Range/Units 17:00 WBC (4.0-11.0) K/uL RBC (4.50-5.90) M/uL Hgb (13.0-17.0) g/dL Hct (38.0-50.0) % MCV (80.0-98.0) fL MCH (27.0-32.0) pg MCHC (31.0-37.0) g/dL RDW Std Deviation (28.0-62.0) fl RDW Coeff of Theresa (11.0-15.0) % Plt Count (150-400) K/uL MPV (7.40-12.00) fL Neut % (Auto) (48.0-80.0) % Lymph % (Auto) (16.0-40.0) % [place] % (Auto) (0.0-15.0) % Eos % (Auto) (0.0-7.0) % Baso % (Auto) (0.0-1.5) % Neut # (Auto) (1.4-5.7) K/uL Lymph # (Auto) (0.6-2.4) K/uL [place] # (Auto) (0.0-0.8) K/uL Eos # (Auto) (0.0-0.7) K/uL Baso # (Auto) (0.0-0.1) K/uL Nucleated RBC % /100WBC Nucleated RBCs # K/uL Sodium (136-148) mmol/L Potassium (3.5-5.1) mmol/L Chloride (98-107) mmol/L Carbon Dioxide (21.0-32.0) mmol/L BUN (7.0-18.0) mg/dL Creatinine (0.8-1.3) mg/dL Est Cr Clr Drug Dosing mL/min Estimated GFR (MDRD) ml/min Glucose (74-106) mg/dL POC Glucose 223 H (60-110) mg/dL Calcium (8.5-10.1) mg/dL Total Bilirubin (0.2-1.0) mg/dL AST (15-37) IU/L ALT (14-63) IU/L Alkaline Phosphatase (46-116) U/L Troponin I (0.000-0.056) ng/mL Total Protein (6.4-8.2) g/dL Albumin (3.4-5.0) g/dL Globulin (2.6-4.0) g/dL Albumin/Globulin Ratio (0.9-1.6) Florentino Results Last 24 Hours: Microbiology 07/25/19 13:10 Aerobic Blood Culture - Preliminary Blood - Venous - Lab Draw NO GROWTH AFTER 2 DAYS Anaerobic Blood Culture - Final 07/25/19 12:58 Aerobic Blood Culture - Preliminary Blood - Venous NO GROWTH AFTER 2 DAYS Anaerobic Blood Culture - Preliminary NO GROWTH AFTER 2 DAYS 07/25/19 05:11 Urine Culture - Preliminary Urine, Voided Proteus Mirabilis Klebsiella Pneumoniae Med Orders - Current: Current Medications Acetaminophen (Tylenol) 650 mg PO Q6H PRN PRN Reason: Pain Last Admin: 07/27/19 05:20 Dose: 650 mg Albuterol/Ipratropium (Duoneb 3.0-0.5 Mg/3 Ml) 3 ml NEB Q4HRRT PRN PRN Reason: Shortness of Breath Last Admin: 07/27/19 06:56 Dose: 3 ml Atorvastatin Calcium (Lipitor) 40 mg PO BEDTIME [facility] Last Admin: 07/26/19 21:12 Dose: 40 mg Cholecalciferol (Vitamin D3) 50 mcg PO DAILY [facility] Last Admin: 07/27/19 09:29 Dose: 50 mcg Ciprofloxacin (Ciprofloxacin Hcl) 250 mg PO BID [facility] Last Admin: 07/27/19 10:23 Dose: 250 mg Citalopram Hydrobromide (Celexa) 20 mg PO DAILY [facility] Last Admin: 07/27/19 08:57 Dose: 20 mg Furosemide (Lasix) 40 mg IVPUSH Q12H [facility] Stop: 07/28/19 21:01 Last Admin: 07/27/19 09:26 Dose: 40 mg Pantoprazole Sodium 40 mg/ (Sodium Chloride) 10 mls @ 300 mls/hr IV BID [facility] Last Admin: 07/27/19 09:22 Dose: 300 mls/hr Insulin Aspart (Novolog) 0 unit SUBCUT TIDAC [facility]; Protocol Last Admin: 07/27/19 17:59 Dose: 9 units Levothyroxine Sodium (Levothyroxine) 25 mcg PO ACBREAKFAST [facility] Last Admin: 07/27/19 06:44 Dose: 25 mcg Metoprolol Tartrate (Lopressor) 100 mg PO BID [facility] Last Admin: 07/27/19 08:57 Dose: 100 mg Multivitamins/Minerals (Prosight) 1 tab PO BID [facility] Last Admin: 07/27/19 08:56 Dose: 1 tab Nystatin (Nystatin Crm) 1 gm TOP BID [facility] Last Admin: 07/27/19 09:02 Dose: Not Given Tetrahydrozoline Hcl ([Visine] 1 Drop) 1 each EYERT ASDIRECTED PRN PRN Reason: Dry Eyes Sucralfate (Carafate) 1 gm PO QIDACANDBED [facility] Last Admin: 07/27/19 17:26 Dose: 1 gm Tamsulosin HCl (Flomax) 0.4 mg PO PCBREAKFAST [facility] Last Admin: 07/27/19 11:42 Dose: 0.4 mg Discontinued Medications Acetaminophen (Tylenol Extra Strength) 1,000 mg PO ONETIME ONE Stop: 07/24/19 21:05 Last Admin: 07/24/19 21:31 Dose: 1,000 mg Al Hydroxide/Mg Hydroxide (Mag-Al Plus) 30 ml PO ONETIME ONE Stop: 07/25/19 12:40 Last Admin: 07/25/19 13:01 Dose: 30 ml Apixaban (Eliquis) 2.5 mg PO BID [facility] Last Admin: 07/26/19 09:33 Dose: 2.5 mg Enoxaparin Sodium (Lovenox) 90 mg SUBCUT ONETIME ONE Stop: 07/25/19 02:04 Last Admin: 07/25/19 02:48 Dose: 90 mg Furosemide (Lasix) 60 mg PO DAILY [facility] Last Admin: 07/26/19 09:35 Dose: 60 mg Furosemide (Lasix) 20 mg IVPUSH ONETIME ONE Stop: 07/25/19 09:56 Last Admin: 07/26/19 22:10 Dose: 20 mg Furosemide (Lasix) 20 mg IVPUSH ONETIME ONE Stop: 07/25/19 12:16 Last Admin: 07/25/19 12:14 Dose: 20 mg Furosemide (Lasix) 20 mg IVPUSH NOW ONE Stop: 07/26/19 22:02 Last Admin: 07/26/19 22:06 Dose: 20 mg Furosemide (Lasix) Confirm Administered Dose 20 mg .ROUTE .STK-MED ONE Stop: 07/26/19 22:05 Last Admin: 07/26/19 23:05 Dose: Not Given Sodium Chloride (Normal Saline) 250 mls @ 125 mls/hr IV ASDIRECTED [facility] Last Admin: 07/25/19 02:53 Dose: 125 mls/hr Magnesium Sulfate 2 gm/ Premix 50 mls @ 50 mls/hr IV ONETIME ONE Stop: 07/25/19 10:47 Last Admin: 07/25/19 12:21 Dose: Not Given Magnesium Sulfate 2 gm/ Premix 50 mls @ 50 mls/hr IV ONETIME ONE Stop: 07/25/19 13:14 Last Admin: 07/25/19 12:20 Dose: 50 mls/hr Ceftriaxone Sodium 1 gm/ (Sodium Chloride) 50 mls @ 100 mls/hr IV Q12H [facility] Last Admin: 07/26/19 00:46 Dose: 100 mls/hr Ceftriaxone Sodium 1 gm/ (Sodium Chloride) 50 mls @ 100 mls/hr IV Q24H [facility] Last Admin: 07/27/19 00:21 Dose: 100 mls/hr Lactated Ringer's (Ringers, Lactated) 500 mls @ 200 mls/hr IV ONETIME ONE Stop: 07/26/19 12:53 Last Admin: 07/26/19 12:29 Dose: Not Given Lactated Ringer's (Ringers, Lactated) 1,000 mls @ 200 mls/hr IV ONETIME ONE Stop: 07/26/19 17:29 Last Admin: 07/26/19 12:35 Dose: 200 mls/hr Lactated Ringer's (Ringers, Lactated) 1,000 mls @ 200 mls/hr IV ONETIME ONE Stop: 07/27/19 00:59 Last Admin: 07/26/19 21:08 Dose: 200 mls/hr Methylprednisolone Sodium Succinate (Solu-Medrol) 40 mg IV ONETIME ONE Stop: 07/25/19 14:01 Last Admin: 07/25/19 14:25 Dose: 40 mg Methylprednisolone Sodium Succinate (Solu-Medrol) 125 mg IVPUSH ONETIME ONE Stop: 07/25/19 16:19 Last Admin: 07/25/19 16:50 Dose: 125 mg Sepsis Event Note - Focused Exam Vital Signs: Vital Signs Temp Pulse Pulse Resp BP BP Pulse Ox 07/27/19 19:54 36.7 C 81 18 142/61 H 96 07/27/19 17:00 36.3 C 76 16 134/60 96 07/27/19 11:00 36.7 C 16 128/59 L 94 L 07/27/19 08:57 95 135/56 L Date Exam was Performed: 07/27/19 Time Exam was Performed: 19:56 - Problem List & Annotations (1) Generalized weakness SNOMED Code(s): 01806295 Code(s): R53.1 - WEAKNESS Status: Acute Current Visit: Yes (2) Atrial fibrillation SNOMED Code(s): 62160623 Code(s): I48.91 - UNSPECIFIED ATRIAL FIBRILLATION Status: Acute Current Visit: No (3) Congestive heart failure SNOMED Code(s): 93598649 Code(s): I50.9 - HEART FAILURE, UNSPECIFIED Status: Acute Current Visit: No - My Orders Last 24 Hours: My Active Orders 07/26/19 22:03 Oxygen Therapy [RC] ASDIRECTED - Plan Plan:: i seen and evaluated the patient with the resident. I have discussed findings and treatment plan with the resident. I agree with the assessment and plan in the following note
[2019-07-26] MEDS: Pantoprazole 40 MG in Sodium Chloride 0.9% 10 ML IV SCH ×2 (09:56→21:12)
[2019-07-26] MEDS ORDERED: Lactated Ringers 500 ML IV ONE (10:24)
[2019-07-26] MEDS: Levothyroxine 25 MCG Tab PO SCH (10:28)
[2019-07-26] MEDS ORDERED: Lactated Ringers 1,000 ML IV ONE ×2 (12:30→20:00)
[2019-07-26 18:29] LABS: CARBON DIOXIDE,CO2 21.2 mmol/L (21.0-32.0); POTASSIUM,K 4.9 mmol/L (3.5-5.1)
[2019-07-26] MEDS: atorvaSTATin 40 MG Tab PO SCH (21:12)
[2019-07-26] MEDS ORDERED: Furosemide 40 MG/4 ML VIAL IVPUSH ONE (22:01)
[2019-07-26] MEDS ORDERED: Furosemide 20 MG/2 ML VIAL ONE (22:04)
[2019-07-26] MEDS: Albuterol/Ipratropium 3.0-0.5 MG/3 ML Neb Soln NEB PRN (22:07)
[2019-07-26] MEDS: Furosemide 20 MG/2 ML VIAL IVPUSH ONE (22:10)
--- NOTE | 2019-07-26 22:44 | CR ---
Indication: Shortness of breath Technique: Chest 1 view Comparison: July 24, 2019 Findings/Impression: Stable cardiomegaly. Persistent patchy atelectasis or infiltrate at the left lung base. There may also be a small amount of left pleural fluid. The findings appear stable compared to the prior exam. No pneumothorax. Electrical device projects over the left upper lung field. Dictated by Hilda Solano MD @ Jul 26 2019 10:42PM Signed by Dr. Hilda Solano @ Jul 26 2019 10:42PM
[2019-07-27] MEDS ORDERED: cefTRIAXone 1 GM in Sodium Chloride 0.9% 50 ML IV SCH ×2
[2019-07-27] MEDS: Acetaminophen 325 MG Tab PO PRN (05:20)
[2019-07-27] MEDS: Sucralfate Suspension 1 GM/10 ML Cup PO SCH ×4 (06:44→20:33)
[2019-07-27] MEDS: Levothyroxine 25 MCG Tab PO SCH (06:44)
[2019-07-27 06:47] LABS: CARBON DIOXIDE,CO2 26.7 mmol/L (21.0-32.0); POTASSIUM,K 4.6 mmol/L (3.5-5.1)
[2019-07-27] MEDS: Albuterol/Ipratropium 3.0-0.5 MG/3 ML Neb Soln NEB PRN (06:56)
[2019-07-27] MEDS: Insulin Aspart 100 Units/ML 3 ML Pen SUBCUT SCH ×3 (08:16→17:59)
--- NOTE | 2019-07-27 08:36 | PCM.PN ---
<Eliazar Moran - Last Filed: 07/27/19 11:05> - General Info Date of Service: 07/27/19 Subjective Update: Overnight patient complained of dyspnea. He was given lasix 20 mg IV once with good urine output. chest xray did not show any significant changes. This morning, patient is feeling better. Not short of breath. No chest pain. - Patient Data Vitals - Most Recent: Last Vital Signs Temp 36.5 C 07/27/19 07:00 Pulse 92 07/27/19 04:10 Resp 16 07/27/19 07:00 BP 142/62 H 07/27/19 07:00 Pulse Ox 92 L 07/27/19 07:00 Weight - Most Recent: 82.6 kg I&O - Last 24 Hours: Intake & Output 07/26/19 07/27/19 07/27/19 22:59 06:59 14:59 Intake Total 1231 300 Output Total 700 500 Balance 531 -200 Lab Results Last 24 Hours: Laboratory Results - last 24 hr 07/26/19 07/26/19 07/26/19 Range/Units 06:00 06:00 17:41 WBC (4.0-11.0) K/uL RBC (4.50-5.90) M/uL Hgb (13.0-17.0) g/dL Hct (38.0-50.0) % MCV (80.0-98.0) fL MCH (27.0-32.0) pg MCHC (31.0-37.0) g/dL RDW Std Deviation (28.0-62.0) fl RDW Coeff of Theresa (11.0-15.0) % Plt Count (150-400) K/uL MPV (7.40-12.00) fL Neut % (Auto) (48.0-80.0) % Lymph % (Auto) (16.0-40.0) % Saunders % (Auto) (0.0-15.0) % Eos % (Auto) (0.0-7.0) % Baso % (Auto) (0.0-1.5) % Neut # (Auto) (1.4-5.7) K/uL Lymph # (Auto) (0.6-2.4) K/uL Saunders # (Auto) (0.0-0.8) K/uL Eos # (Auto) (0.0-0.7) K/uL Baso # (Auto) (0.0-0.1) K/uL Nucleated RBC % /100WBC Nucleated RBCs # K/uL Sodium (136-148) mmol/L Potassium (3.5-5.1) mmol/L Chloride (98-107) mmol/L Carbon Dioxide (21.0-32.0) mmol/L BUN (7.0-18.0) mg/dL Creatinine (0.8-1.3) mg/dL Est Cr Clr Drug Dosing mL/min Estimated GFR (MDRD) ml/min Glucose (74-106) mg/dL POC Glucose 263 H (60-110) mg/dL Calcium (8.5-10.1) mg/dL Total Bilirubin (0.2-1.0) mg/dL AST (15-37) IU/L ALT (14-63) IU/L Alkaline Phosphatase (46-116) U/L Troponin I (0.000-0.056) ng/mL B-Natriuretic Peptide 3359 H (<100) PG/ML Total Protein (6.4-8.2) g/dL Albumin (3.4-5.0) g/dL Globulin (2.6-4.0) g/dL Albumin/Globulin Ratio (0.9-1.6) Free T3 1.07 L (2.18-3.98) pg/mL 07/26/19 07/26/19 07/26/19 Range/Units 18:01 18:01 20:38 WBC (4.0-11.0) K/uL RBC (4.50-5.90) M/uL Hgb 9.1 L (13.0-17.0) g/dL Hct (38.0-50.0) % MCV (80.0-98.0) fL MCH (27.0-32.0) pg MCHC (31.0-37.0) g/dL RDW Std Deviation (28.0-62.0) fl RDW Coeff of Theresa (11.0-15.0) % Plt Count (150-400) K/uL MPV (7.40-12.00) fL Neut % (Auto) (48.0-80.0) % Lymph % (Auto) (16.0-40.0) % Saunders % (Auto) (0.0-15.0) % Eos % (Auto) (0.0-7.0) % Baso % (Auto) (0.0-1.5) % Neut # (Auto) (1.4-5.7) K/uL Lymph # (Auto) (0.6-2.4) K/uL Saunders # (Auto) (0.0-0.8) K/uL Eos # (Auto) (0.0-0.7) K/uL Baso # (Auto) (0.0-0.1) K/uL Nucleated RBC % /100WBC Nucleated RBCs # K/uL Sodium 134 L (136-148) mmol/L Potassium 4.9 (3.5-5.1) mmol/L Chloride 101 (98-107) mmol/L Carbon Dioxide 21.2 (21.0-32.0) mmol/L BUN 49 H (7.0-18.0) mg/dL Creatinine 1.9 H (0.8-1.3) mg/dL Est Cr Clr Drug Dosing 29.11 mL/min Estimated GFR (MDRD) 34.1 ml/min Glucose 259 H (74-106) mg/dL POC Glucose 260 H (60-110) mg/dL Calcium 8.5 (8.5-10.1) mg/dL Total Bilirubin (0.2-1.0) mg/dL AST (15-37) IU/L ALT (14-63) IU/L Alkaline Phosphatase (46-116) U/L Troponin I (0.000-0.056) ng/mL B-Natriuretic Peptide (<100) PG/ML Total Protein (6.4-8.2) g/dL Albumin (3.4-5.0) g/dL Globulin (2.6-4.0) g/dL Albumin/Globulin Ratio (0.9-1.6) Free T3 (2.18-3.98) pg/mL 07/26/19 07/27/19 07/27/19 Range/Units 23:04 06:05 06:05 WBC 5.55 (4.0-11.0) K/uL RBC 3.47 L (4.50-5.90) M/uL Hgb 8.5 L (13.0-17.0) g/dL Hct 27.7 L (38.0-50.0) % MCV 79.8 L (80.0-98.0) fL MCH 24.5 L (27.0-32.0) pg MCHC 30.7 L (31.0-37.0) g/dL RDW Std Deviation 51.3 (28.0-62.0) fl RDW Coeff of Theresa 18 H (11.0-15.0) % Plt Count 144 L (150-400) K/uL MPV 10.20 (7.40-12.00) fL Neut % (Auto) 67.5 (48.0-80.0) % Lymph % (Auto) 16.4 (16.0-40.0) % Saunders % (Auto) 15.7 H (0.0-15.0) % Eos % (Auto) 0.2 (0.0-7.0) % Baso % (Auto) 0.2 (0.0-1.5) % Neut # (Auto) 3.8 (1.4-5.7) K/uL Lymph # (Auto) 0.9 (0.6-2.4) K/uL Saunders # (Auto) 0.9 H (0.0-0.8) K/uL Eos # (Auto) 0.0 (0.0-0.7) K/uL Baso # (Auto) 0.0 (0.0-0.1) K/uL Nucleated RBC % 0.0 /100WBC Nucleated RBCs # 0 K/uL Sodium 141 (136-148) mmol/L Potassium 4.6 (3.5-5.1) mmol/L Chloride 103 (98-107) mmol/L Carbon Dioxide 26.7 (21.0-32.0) mmol/L BUN 46 H (7.0-18.0) mg/dL Creatinine 1.9 H (0.8-1.3) mg/dL Est Cr Clr Drug Dosing 29.11 mL/min Estimated GFR (MDRD) 34.1 ml/min Glucose 180 H (74-106) mg/dL POC Glucose (60-110) mg/dL Calcium 8.3 L (8.5-10.1) mg/dL Total Bilirubin 0.3 (0.2-1.0) mg/dL AST 47 H (15-37) IU/L ALT 61 (14-63) IU/L Alkaline Phosphatase 113 (46-116) U/L Troponin I < 0.050 (0.000-0.056) ng/mL B-Natriuretic Peptide (<100) PG/ML Total Protein 5.9 L (6.4-8.2) g/dL Albumin 3.1 L (3.4-5.0) g/dL Globulin 2.8 (2.6-4.0) g/dL Albumin/Globulin Ratio 1.1 (0.9-1.6) Free T3 (2.18-3.98) pg/mL 07/27/19 Range/Units 06:34 WBC (4.0-11.0) K/uL RBC (4.50-5.90) M/uL Hgb (13.0-17.0) g/dL Hct (38.0-50.0) % MCV (80.0-98.0) fL MCH (27.0-32.0) pg MCHC (31.0-37.0) g/dL RDW Std Deviation (28.0-62.0) fl RDW Coeff of Theresa (11.0-15.0) % Plt Count (150-400) K/uL MPV (7.40-12.00) fL Neut % (Auto) (48.0-80.0) % Lymph % (Auto) (16.0-40.0) % Saunders % (Auto) (0.0-15.0) % Eos % (Auto) (0.0-7.0) % Baso % (Auto) (0.0-1.5) % Neut # (Auto) (1.4-5.7) K/uL Lymph # (Auto) (0.6-2.4) K/uL Saunders # (Auto) (0.0-0.8) K/uL Eos # (Auto) (0.0-0.7) K/uL Baso # (Auto) (0.0-0.1) K/uL Nucleated RBC % /100WBC Nucleated RBCs # K/uL Sodium (136-148) mmol/L Potassium (3.5-5.1) mmol/L Chloride (98-107) mmol/L Carbon Dioxide (21.0-32.0) mmol/L BUN (7.0-18.0) mg/dL Creatinine (0.8-1.3) mg/dL Est Cr Clr Drug Dosing mL/min Estimated GFR (MDRD) ml/min Glucose (74-106) mg/dL POC Glucose 167 H (60-110) mg/dL Calcium (8.5-10.1) mg/dL Total Bilirubin (0.2-1.0) mg/dL AST (15-37) IU/L ALT (14-63) IU/L Alkaline Phosphatase (46-116) U/L Troponin I (0.000-0.056) ng/mL B-Natriuretic Peptide (<100) PG/ML Total Protein (6.4-8.2) g/dL Albumin (3.4-5.0) g/dL Globulin (2.6-4.0) g/dL Albumin/Globulin Ratio (0.9-1.6) Free T3 (2.18-3.98) pg/mL Florentino Results Last 24 Hours: Microbiology 07/25/19 05:11 Urine Culture - Preliminary Urine, Voided Proteus Mirabilis Klebsiella Pneumoniae 07/25/19 13:10 Aerobic Blood Culture - Preliminary Blood - Venous - Lab Draw NO GROWTH AFTER 1 DAY Anaerobic Blood Culture - Final 07/25/19 12:58 Aerobic Blood Culture - Preliminary Blood - Venous NO GROWTH AFTER 1 DAY Anaerobic Blood Culture - Preliminary NO GROWTH AFTER 1 DAY 07/26/19 05:00 Stool Occult Blood (FLORENTINO) - Final Stool / Feces Med Orders - Current: Current Medications Acetaminophen (Tylenol) 650 mg PO Q6H PRN PRN Reason: Pain Last Admin: 07/27/19 05:20 Dose: 650 mg Albuterol/Ipratropium (Duoneb 3.0-0.5 Mg/3 Ml) 3 ml NEB Q4HRRT PRN PRN Reason: Shortness of Breath Last Admin: 07/27/19 06:56 Dose: 3 ml Atorvastatin Calcium (Lipitor) 40 mg PO BEDTIME JACOB Last Admin: 07/26/19 21:12 Dose: 40 mg Cholecalciferol (Vitamin D3) 50 mcg PO DAILY JACOB Last Admin: 07/26/19 09:41 Dose: 50 mcg Citalopram Hydrobromide (Celexa) 20 mg PO DAILY [facility] Last Admin: 07/26/19 09:31 Dose: 20 mg Furosemide (Lasix) 40 mg IVPUSH Q12H [facility] Stop: 07/28/19 21:01 Pantoprazole Sodium 40 mg/ (Sodium Chloride) 10 mls @ 300 mls/hr IV BID [facility] Last Admin: 07/26/19 21:12 Dose: 300 mls/hr Ceftriaxone Sodium 1 gm/ (Sodium Chloride) 50 mls @ 100 mls/hr IV Q24H [facility] Last Admin: 07/27/19 00:21 Dose: 100 mls/hr Insulin Aspart (Novolog) 0 unit SUBCUT TIDAC [facility]; Protocol Last Admin: 07/27/19 08:16 Dose: 3 units Levothyroxine Sodium (Levothyroxine) 25 mcg PO ACBREAKFAST [facility] Last Admin: 07/27/19 06:44 Dose: 25 mcg Metoprolol Tartrate (Lopressor) 100 mg PO BID [facility] Last Admin: 07/26/19 21:11 Dose: 100 mg Multivitamins/Minerals (Prosight) 1 tab PO BID [facility] Last Admin: 07/26/19 21:12 Dose: 1 tab Nystatin (Nystatin Crm) 1 gm TOP BID [facility] Last Admin: 07/26/19 23:16 Dose: Not Given Tetrahydrozoline Hcl ([Visine] 1 Drop) 1 each EYERT ASDIRECTED PRN PRN Reason: Dry Eyes Sucralfate (Carafate) 1 gm PO QIDACANDBED [facility] Last Admin: 07/27/19 06:44 Dose: 1 gm Tamsulosin HCl (Flomax) 0.4 mg PO PCBREAKFAST [facility] Discontinued Medications Acetaminophen (Tylenol Extra Strength) 1,000 mg PO ONETIME ONE Stop: 07/24/19 21:05 Last Admin: 07/24/19 21:31 Dose: 1,000 mg Al Hydroxide/Mg Hydroxide (Mag-Al Plus) 30 ml PO ONETIME ONE Stop: 07/25/19 12:40 Last Admin: 07/25/19 13:01 Dose: 30 ml Apixaban (Eliquis) 2.5 mg PO BID [facility] Last Admin: 07/26/19 09:33 Dose: 2.5 mg Enoxaparin Sodium (Lovenox) 90 mg SUBCUT ONETIME ONE Stop: 07/25/19 02:04 Last Admin: 07/25/19 02:48 Dose: 90 mg Furosemide (Lasix) 60 mg PO DAILY [facility] Last Admin: 07/26/19 09:35 Dose: 60 mg Furosemide (Lasix) 20 mg IVPUSH ONETIME ONE Stop: 07/25/19 09:56 Last Admin: 07/26/19 22:10 Dose: 20 mg Furosemide (Lasix) 20 mg IVPUSH ONETIME ONE Stop: 07/25/19 12:16 Last Admin: 07/25/19 12:14 Dose: 20 mg Furosemide (Lasix) 20 mg IVPUSH NOW ONE Stop: 07/26/19 22:02 Last Admin: 07/26/19 22:06 Dose: 20 mg Furosemide (Lasix) Confirm Administered Dose 20 mg .ROUTE .STK-MED ONE Stop: 07/26/19 22:05 Last Admin: 07/26/19 23:05 Dose: Not Given Sodium Chloride (Normal Saline) 250 mls @ 125 mls/hr IV ASDIRECTED [facility] Last Admin: 07/25/19 02:53 Dose: 125 mls/hr Magnesium Sulfate 2 gm/ Premix 50 mls @ 50 mls/hr IV ONETIME ONE Stop: 07/25/19 10:47 Last Admin: 07/25/19 12:21 Dose: Not Given Magnesium Sulfate 2 gm/ Premix 50 mls @ 50 mls/hr IV ONETIME ONE Stop: 07/25/19 13:14 Last Admin: 07/25/19 12:20 Dose: 50 mls/hr Ceftriaxone Sodium 1 gm/ (Sodium Chloride) 50 mls @ 100 mls/hr IV Q12H [facility] Last Admin: 07/26/19 00:46 Dose: 100 mls/hr Lactated Ringer's (Ringers, Lactated) 500 mls @ 200 mls/hr IV ONETIME ONE Stop: 07/26/19 12:53 Last Admin: 07/26/19 12:29 Dose: Not Given Lactated Ringer's (Ringers, Lactated) 1,000 mls @ 200 mls/hr IV ONETIME ONE Stop: 07/26/19 17:29 Last Admin: 07/26/19 12:35 Dose: 200 mls/hr Lactated Ringer's (Ringers, Lactated) 1,000 mls @ 200 mls/hr IV ONETIME ONE Stop: 07/27/19 00:59 Last Admin: 07/26/19 21:08 Dose: 200 mls/hr Methylprednisolone Sodium Succinate (Solu-Medrol) 40 mg IV ONETIME ONE Stop: 07/25/19 14:01 Last Admin: 07/25/19 14:25 Dose: 40 mg Methylprednisolone Sodium Succinate (Solu-Medrol) 125 mg IVPUSH ONETIME ONE Stop: 07/25/19 16:19 Last Admin: 07/25/19 16:50 Dose: 125 mg - Exam General: Alert, Oriented, Cooperative, No Acute Distress Lungs: Clear to Auscultation. No: Crackles, Wheezing Cardiovascular: Regular Rate, Irregular Rhythm Extremities: Pedal Edema Sepsis Event Note - Evaluation Sepsis Screening Result: No Definite Risk - Focused Exam Vital Signs: Vital Signs Temp Pulse Pulse Resp BP BP Pulse Ox 07/27/19 07:00 36.5 C 16 142/62 H 92 L 07/27/19 04:10 36.3 C 92 18 141/63 H 98 07/27/19 01:20 36.4 C 71 15 131/56 L 98 07/26/19 23:00 67 28 H 122/59 L 97 07/26/19 22:03 07/26/19 21:58 73 34 H 111/47 L 96 07/26/19 21:11 73 122/56 L Pulse Ox 07/27/19 07:00 07/27/19 04:10 07/27/19 01:20 07/26/19 23:00 07/26/19 22:03 96 07/26/19 21:58 07/26/19 21:11 Date Exam was Performed: 07/27/19 Time Exam was Performed: 11:05 - Problem List Review Problem List Initiated/Reviewed/Updated: Yes - My Orders Last 24 Hours: My Active Orders 07/26/19 09:20 Levothyroxine 25 mcg PO ACBREAKFAST 07/26/19 09:29 Intake and Output Strict [RC] ASDIRECTED 07/26/19 11:12 Communication Order [RC] PRN 07/27/19 07:16 Up to Chair [RC] DAILY 07/27/19 09:00 Furosemide [Lasix] 40 mg IVPUSH Q12H 07/27/19 12:31 Tamsulosin [Flomax] 0.4 mg PO PCBREAKFAST 07/28/19 05:11 CBC WITH AUTO DIFF [HEME] AM COMPREHENSIVE METABOLIC PN,CMP [CHEM] AM 07/29/19 05:11 CBC WITH AUTO DIFF [HEME] AM COMPREHENSIVE METABOLIC PN,CMP [CHEM] AM - Plan Plan:: A: 1. Acute on chronic CHF exacerbation 2. Blood loss anemia, stable 3. Chronic pulmonary embolism 4. Atrial fibrillation, rate controlled 5. Hypothyroidism 6. Urinary tract infection 7. Depression P: 1. Acute on chronic CHF exacerbation. Will start lasix 40 mg IV q12H. Strict I/O 's. Fluid restriction 2 L. Monitor kidney function. 2. Blood loss anemia. Stable Hg of 8.0. Holding Eliquis for now. 3. Chronic PE- will hold Eliquis for now due to positive FOBT. 4. Afib, rate controlled. Holding Eliquis due to blood loss anemia. Continue with metoprolol. 5. Hypothyroidism- Levothyroxine 25 mcg PO daily. Will need outpatient recheck in 4-6 weeks. 6. UTI- switch to ciprofloxacin. urine culture growing Klebsiella and proteus. 7. Depression- continue citalopram. dispo: 1-2 days. <Mt Jose - Last Filed: 07/27/19 19:57> - Patient Data Vitals - Most Recent: Last Vital Signs Temp 36.7 C 07/27/19 19:54 Pulse 81 07/27/19 19:54 Resp 18 07/27/19 19:54 BP 142/61 H 07/27/19 19:54 Pulse Ox 96 07/27/19 19:54 I&O - Last 24 Hours: Intake & Output 07/27/19 07/27/19 07/27/19 06:59 14:59 22:59 Intake Total 300 520 Output Total 500 660 Balance -200 -140 Lab Results Last 24 Hours: Laboratory Results - last 24 hr 07/26/19 07/26/19 07/27/19 Range/Units 20:38 23:04 06:05 WBC 5.55 (4.0-11.0) K/uL RBC 3.47 L (4.50-5.90) M/uL Hgb 8.5 L (13.0-17.0) g/dL Hct 27.7 L (38.0-50.0) % MCV 79.8 L (80.0-98.0) fL MCH 24.5 L (27.0-32.0) pg MCHC 30.7 L (31.0-37.0) g/dL RDW Std Deviation 51.3 (28.0-62.0) fl RDW Coeff of Theresa 18 H (11.0-15.0) % Plt Count 144 L (150-400) K/uL MPV 10.20 (7.40-12.00) fL Neut % (Auto) 67.5 (48.0-80.0) % Lymph % (Auto) 16.4 (16.0-40.0) % Saunders % (Auto) 15.7 H (0.0-15.0) % Eos % (Auto) 0.2 (0.0-7.0) % Baso % (Auto) 0.2 (0.0-1.5) % Neut # (Auto) 3.8 (1.4-5.7) K/uL Lymph # (Auto) 0.9 (0.6-2.4) K/uL Saunders # (Auto) 0.9 H (0.0-0.8) K/uL Eos # (Auto) 0.0 (0.0-0.7) K/uL Baso # (Auto) 0.0 (0.0-0.1) K/uL Nucleated RBC % 0.0 /100WBC Nucleated RBCs # 0 K/uL Sodium (136-148) mmol/L Potassium (3.5-5.1) mmol/L Chloride (98-107) mmol/L Carbon Dioxide (21.0-32.0) mmol/L BUN (7.0-18.0) mg/dL Creatinine (0.8-1.3) mg/dL Est Cr Clr Drug Dosing mL/min Estimated GFR (MDRD) ml/min Glucose (74-106) mg/dL POC Glucose 260 H (60-110) mg/dL Calcium (8.5-10.1) mg/dL Total Bilirubin (0.2-1.0) mg/dL AST (15-37) IU/L ALT (14-63) IU/L Alkaline Phosphatase (46-116) U/L Troponin I < 0.050 (0.000-0.056) ng/mL Total Protein (6.4-8.2) g/dL Albumin (3.4-5.0) g/dL Globulin (2.6-4.0) g/dL Albumin/Globulin Ratio (0.9-1.6) 07/27/19 07/27/19 07/27/19 Range/Units 06:05 06:34 11:45 WBC (4.0-11.0) K/uL RBC (4.50-5.90) M/uL Hgb (13.0-17.0) g/dL Hct (38.0-50.0) % MCV (80.0-98.0) fL MCH (27.0-32.0) pg MCHC (31.0-37.0) g/dL RDW Std Deviation (28.0-62.0) fl RDW Coeff of Theresa (11.0-15.0) % Plt Count (150-400) K/uL MPV (7.40-12.00) fL Neut % (Auto) (48.0-80.0) % Lymph % (Auto) (16.0-40.0) % Saunders % (Auto) (0.0-15.0) % Eos % (Auto) (0.0-7.0) % Baso % (Auto) (0.0-1.5) % Neut # (Auto) (1.4-5.7) K/uL Lymph # (Auto) (0.6-2.4) K/uL Saunders # (Auto) (0.0-0.8) K/uL Eos # (Auto) (0.0-0.7) K/uL Baso # (Auto) (0.0-0.1) K/uL Nucleated RBC % /100WBC Nucleated RBCs # K/uL Sodium 141 (136-148) mmol/L Potassium 4.6 (3.5-5.1) mmol/L Chloride 103 (98-107) mmol/L Carbon Dioxide 26.7 (21.0-32.0) mmol/L BUN 46 H (7.0-18.0) mg/dL Creatinine 1.9 H (0.8-1.3) mg/dL Est Cr Clr Drug Dosing 29.11 mL/min Estimated GFR (MDRD) 34.1 ml/min Glucose 180 H (74-106) mg/dL POC Glucose 167 H 274 H (60-110) mg/dL Calcium 8.3 L (8.5-10.1) mg/dL Total Bilirubin 0.3 (0.2-1.0) mg/dL AST 47 H (15-37) IU/L ALT 61 (14-63) IU/L Alkaline Phosphatase 113 (46-116) U/L Troponin I (0.000-0.056) ng/mL Total Protein 5.9 L (6.4-8.2) g/dL Albumin 3.1 L (3.4-5.0) g/dL Globulin 2.8 (2.6-4.0) g/dL Albumin/Globulin Ratio 1.1 (0.9-1.6) 07/27/19 Range/Units 17:00 WBC (4.0-11.0) K/uL RBC (4.50-5.90) M/uL Hgb (13.0-17.0) g/dL Hct (38.0-50.0) % MCV (80.0-98.0) fL MCH (27.0-32.0) pg MCHC (31.0-37.0) g/dL RDW Std Deviation (28.0-62.0) fl RDW Coeff of Theresa (11.0-15.0) % Plt Count (150-400) K/uL MPV (7.40-12.00) fL Neut % (Auto) (48.0-80.0) % Lymph % (Auto) (16.0-40.0) % Saunders % (Auto) (0.0-15.0) % Eos % (Auto) (0.0-7.0) % Baso % (Auto) (0.0-1.5) % Neut # (Auto) (1.4-5.7) K/uL Lymph # (Auto) (0.6-2.4) K/uL Saunders # (Auto) (0.0-0.8) K/uL Eos # (Auto) (0.0-0.7) K/uL Baso # (Auto) (0.0-0.1) K/uL Nucleated RBC % /100WBC Nucleated RBCs # K/uL Sodium (136-148) mmol/L Potassium (3.5-5.1) mmol/L Chloride (98-107) mmol/L Carbon Dioxide (21.0-32.0) mmol/L BUN (7.0-18.0) mg/dL Creatinine (0.8-1.3) mg/dL Est Cr Clr Drug Dosing mL/min Estimated GFR (MDRD) ml/min Glucose (74-106) mg/dL POC Glucose 223 H (60-110) mg/dL Calcium (8.5-10.1) mg/dL Total Bilirubin (0.2-1.0) mg/dL AST (15-37) IU/L ALT (14-63) IU/L Alkaline Phosphatase (46-116) U/L Troponin I (0.000-0.056) ng/mL Total Protein (6.4-8.2) g/dL Albumin (3.4-5.0) g/dL Globulin (2.6-4.0) g/dL Albumin/Globulin Ratio (0.9-1.6) Florentino Results Last 24 Hours: Microbiology 07/25/19 13:10 Aerobic Blood Culture - Preliminary Blood - Venous - Lab Draw NO GROWTH AFTER 2 DAYS Anaerobic Blood Culture - Final 07/25/19 12:58 Aerobic Blood Culture - Preliminary Blood - Venous NO GROWTH AFTER 2 DAYS Anaerobic Blood Culture - Preliminary NO GROWTH AFTER 2 DAYS 07/25/19 05:11 Urine Culture - Preliminary Urine, Voided Proteus Mirabilis Klebsiella Pneumoniae Med Orders - Current: Current Medications Acetaminophen (Tylenol) 650 mg PO Q6H PRN PRN Reason: Pain Last Admin: 07/27/19 05:20 Dose: 650 mg Albuterol/Ipratropium (Duoneb 3.0-0.5 Mg/3 Ml) 3 ml NEB Q4HRRT PRN PRN Reason: Shortness of Breath Last Admin: 07/27/19 06:56 Dose: 3 ml Atorvastatin Calcium (Lipitor) 40 mg PO BEDTIME JACOB Last Admin: 07/26/19 21:12 Dose: 40 mg Cholecalciferol (Vitamin D3) 50 mcg PO DAILY JACOB Last Admin: 07/27/19 09:29 Dose: 50 mcg Ciprofloxacin (Ciprofloxacin Hcl) 250 mg PO BID [facility] Last Admin: 07/27/19 10:23 Dose: 250 mg Citalopram Hydrobromide (Celexa) 20 mg PO DAILY [facility] Last Admin: 07/27/19 08:57 Dose: 20 mg Furosemide (Lasix) 40 mg IVPUSH Q12H [facility] Stop: 07/28/19 21:01 Last Admin: 07/27/19 09:26 Dose: 40 mg Pantoprazole Sodium 40 mg/ (Sodium Chloride) 10 mls @ 300 mls/hr IV BID [facility] Last Admin: 07/27/19 09:22 Dose: 300 mls/hr Insulin Aspart (Novolog) 0 unit SUBCUT TIDAC [facility]; Protocol Last Admin: 07/27/19 17:59 Dose: 9 units Levothyroxine Sodium (Levothyroxine) 25 mcg PO ACBREAKFAST [facility] Last Admin: 07/27/19 06:44 Dose: 25 mcg Metoprolol Tartrate (Lopressor) 100 mg PO BID [facility] Last Admin: 07/27/19 08:57 Dose: 100 mg Multivitamins/Minerals (Prosight) 1 tab PO BID [facility] Last Admin: 07/27/19 08:56 Dose: 1 tab Nystatin (Nystatin Crm) 1 gm TOP BID [facility] Last Admin: 07/27/19 09:02 Dose: Not Given Tetrahydrozoline Hcl ([Visine] 1 Drop) 1 each EYERT ASDIRECTED PRN PRN Reason: Dry Eyes Sucralfate (Carafate) 1 gm PO QIDACANDBED [facility] Last Admin: 07/27/19 17:26 Dose: 1 gm Tamsulosin HCl (Flomax) 0.4 mg PO PCBREAKFAST [facility] Last Admin: 07/27/19 11:42 Dose: 0.4 mg Discontinued Medications Acetaminophen (Tylenol Extra Strength) 1,000 mg PO ONETIME ONE Stop: 07/24/19 21:05 Last Admin: 07/24/19 21:31 Dose: 1,000 mg Al Hydroxide/Mg Hydroxide (Mag-Al Plus) 30 ml PO ONETIME ONE Stop: 07/25/19 12:40 Last Admin: 07/25/19 13:01 Dose: 30 ml Apixaban (Eliquis) 2.5 mg PO BID [facility] Last Admin: 07/26/19 09:33 Dose: 2.5 mg Enoxaparin Sodium (Lovenox) 90 mg SUBCUT ONETIME ONE Stop: 07/25/19 02:04 Last Admin: 07/25/19 02:48 Dose: 90 mg Furosemide (Lasix) 60 mg PO DAILY [facility] Last Admin: 07/26/19 09:35 Dose: 60 mg Furosemide (Lasix) 20 mg IVPUSH ONETIME ONE Stop: 07/25/19 09:56 Last Admin: 07/26/19 22:10 Dose: 20 mg Furosemide (Lasix) 20 mg IVPUSH ONETIME ONE Stop: 07/25/19 12:16 Last Admin: 07/25/19 12:14 Dose: 20 mg Furosemide (Lasix) 20 mg IVPUSH NOW ONE Stop: 07/26/19 22:02 Last Admin: 07/26/19 22:06 Dose: 20 mg Furosemide (Lasix) Confirm Administered Dose 20 mg .ROUTE .STK-MED ONE Stop: 07/26/19 22:05 Last Admin: 07/26/19 23:05 Dose: Not Given Sodium Chloride (Normal Saline) 250 mls @ 125 mls/hr IV ASDIRECTED [facility] Last Admin: 07/25/19 02:53 Dose: 125 mls/hr Magnesium Sulfate 2 gm/ Premix 50 mls @ 50 mls/hr IV ONETIME ONE Stop: 07/25/19 10:47 Last Admin: 07/25/19 12:21 Dose: Not Given Magnesium Sulfate 2 gm/ Premix 50 mls @ 50 mls/hr IV ONETIME ONE Stop: 07/25/19 13:14 Last Admin: 07/25/19 12:20 Dose: 50 mls/hr Ceftriaxone Sodium 1 gm/ (Sodium Chloride) 50 mls @ 100 mls/hr IV Q12H [facility] Last Admin: 07/26/19 00:46 Dose: 100 mls/hr Ceftriaxone Sodium 1 gm/ (Sodium Chloride) 50 mls @ 100 mls/hr IV Q24H [facility] Last Admin: 07/27/19 00:21 Dose: 100 mls/hr Lactated Ringer's (Ringers, Lactated) 500 mls @ 200 mls/hr IV ONETIME ONE Stop: 07/26/19 12:53 Last Admin: 07/26/19 12:29 Dose: Not Given Lactated Ringer's (Ringers, Lactated) 1,000 mls @ 200 mls/hr IV ONETIME ONE Stop: 07/26/19 17:29 Last Admin: 07/26/19 12:35 Dose: 200 mls/hr Lactated Ringer's (Ringers, Lactated) 1,000 mls @ 200 mls/hr IV ONETIME ONE Stop: 07/27/19 00:59 Last Admin: 07/26/19 21:08 Dose: 200 mls/hr Methylprednisolone Sodium Succinate (Solu-Medrol) 40 mg IV ONETIME ONE Stop: 07/25/19 14:01 Last Admin: 07/25/19 14:25 Dose: 40 mg Methylprednisolone Sodium Succinate (Solu-Medrol) 125 mg IVPUSH ONETIME ONE Stop: 07/25/19 16:19 Last Admin: 07/25/19 16:50 Dose: 125 mg Sepsis Event Note - Focused Exam Vital Signs: Vital Signs Temp Pulse Pulse Resp BP BP Pulse Ox 07/27/19 19:54 36.7 C 81 18 142/61 H 96 07/27/19 17:00 36.3 C 76 16 134/60 96 07/27/19 11:00 36.7 C 16 128/59 L 94 L 07/27/19 08:57 95 135/56 L Date Exam was Performed: 07/27/19 Time Exam was Performed: 19:56 - Problem List & Annotations (1) Generalized weakness SNOMED Code(s): 10682044 Code(s): R53.1 - WEAKNESS Status: Acute Current Visit: Yes (2) Atrial fibrillation SNOMED Code(s): 54594208 Code(s): I48.91 - UNSPECIFIED ATRIAL FIBRILLATION Status: Acute Current Visit: No (3) Congestive heart failure SNOMED Code(s): 65132112 Code(s): I50.9 - HEART FAILURE, UNSPECIFIED Status: Acute Current Visit: No - My Orders Last 24 Hours: My Active Orders 07/26/19 22:03 Oxygen Therapy [RC] ASDIRECTED - Plan Plan:: I seen and evaluated the patient with the resident. I have discussed findings and treatment plan with the resident. I agree with the assessment and plan in the following note
[2019-07-27] MEDS: Beta-Carotene (Vitamin A) w/Vitamin C & E plus Minerals Tab PO SCH ×2 (08:56→20:33)
[2019-07-27] MEDS: Metoprolol Tartrate 50 MG Tab PO SCH ×2 (08:57→20:33)
[2019-07-27] MEDS: Citalopram 20 MG Tab PO SCH (08:57)
[2019-07-27] MEDS: Nystatin Crm 30 GM Tube TOP SCH ×2 (09:02→20:33)
[2019-07-27] MEDS: Pantoprazole 40 MG in Sodium Chloride 0.9% 10 ML IV SCH ×2 (09:22→20:35)
[2019-07-27] MEDS: Furosemide 40 MG/4 ML VIAL IVPUSH SCH ×2 (09:26→20:35)
[2019-07-27] MEDS: Cholecalciferol (Vitamin D3) 25 MCG Tab PO SCH (09:29)
[2019-07-27] MEDS: Ciprofloxacin 250 MG Tab PO SCH ×2 (10:23→20:34)
[2019-07-27] MEDS: Tamsulosin 0.4 MG Cap.ER PO SCH (11:42)
[2019-07-27] MEDS: atorvaSTATin 40 MG Tab PO SCH (20:33)
[2019-07-27] MEDS ORDERED: Magnesium Sulfate/Water 2 GM in Premix Bag 1 BAG IV ONE (22:43)
[2019-07-28 06:31] LABS: CARBON DIOXIDE,CO2 26.7 mmol/L (21.0-32.0); POTASSIUM,K 4.1 mmol/L (3.5-5.1)
[2019-07-28] MEDS: Levothyroxine 25 MCG Tab PO SCH (06:47)
[2019-07-28] MEDS: Sucralfate Suspension 1 GM/10 ML Cup PO SCH ×4 (06:47→20:13)
[2019-07-28] MEDS: Insulin Aspart 100 Units/ML 3 ML Pen SUBCUT SCH ×3 (07:38→17:33)
[2019-07-28] MEDS: Citalopram 20 MG Tab PO SCH (08:19)
[2019-07-28] MEDS: Ciprofloxacin 250 MG Tab PO SCH ×2 (08:19→20:14)
[2019-07-28] MEDS: Tamsulosin 0.4 MG Cap.ER PO SCH (08:19)
[2019-07-28] MEDS: Pantoprazole 40 MG Tab.CR PO SCH (08:19)
[2019-07-28] MEDS: Cholecalciferol (Vitamin D3) 25 MCG Tab PO SCH (08:20)
[2019-07-28] MEDS: Metoprolol Tartrate 50 MG Tab PO SCH ×2 (08:20→20:14)
[2019-07-28] MEDS: Beta-Carotene (Vitamin A) w/Vitamin C & E plus Minerals Tab PO SCH ×2 (08:20→20:13)
[2019-07-28] MEDS: Furosemide 40 MG/4 ML VIAL IVPUSH SCH ×2 (08:45→20:15)
[2019-07-28] MEDS: Nystatin Crm 30 GM Tube TOP SCH (09:39)
--- NOTE | 2019-07-28 11:12 | PCM.PN ---
- General Info Date of Service: 07/28/19 Subjective Update: No acute events overnight. Good urine output overnight. Dyspnea is better. Ambulating well. No chest pain, abdominal pain. - Patient Data Vitals - Most Recent: Last Vital Signs Temp 36.5 C 07/28/19 07:54 Pulse 81 07/28/19 08:20 Resp 19 07/28/19 07:54 BP 132/54 L 07/28/19 08:20 Pulse Ox 96 07/28/19 04:00 Weight - Most Recent: 81.8 kg I&O - Last 24 Hours: Intake & Output 07/27/19 07/28/19 07/28/19 22:59 06:59 14:59 Intake Total 520 450 480 Output Total 660 1650 580 Balance -140 -1200 -100 Lab Results Last 24 Hours: Laboratory Results - last 24 hr 07/27/19 07/27/19 07/27/19 Range/Units 06:05 11:45 17:00 WBC (4.0-11.0) K/uL RBC (4.50-5.90) M/uL Hgb (13.0-17.0) g/dL Hct (38.0-50.0) % MCV (80.0-98.0) fL MCH (27.0-32.0) pg MCHC (31.0-37.0) g/dL RDW Std Deviation (28.0-62.0) fl RDW Coeff of Theresa (11.0-15.0) % Plt Count (150-400) K/uL MPV (7.40-12.00) fL Neut % (Auto) (48.0-80.0) % Lymph % (Auto) (16.0-40.0) % Bullitt % (Auto) (0.0-15.0) % Eos % (Auto) (0.0-7.0) % Baso % (Auto) (0.0-1.5) % Neut # (Auto) (1.4-5.7) K/uL Lymph # (Auto) (0.6-2.4) K/uL Bullitt # (Auto) (0.0-0.8) K/uL Eos # (Auto) (0.0-0.7) K/uL Baso # (Auto) (0.0-0.1) K/uL Nucleated RBC % /100WBC Nucleated RBCs # K/uL Sodium (136-148) mmol/L Potassium (3.5-5.1) mmol/L Chloride (98-107) mmol/L Carbon Dioxide (21.0-32.0) mmol/L BUN (7.0-18.0) mg/dL Creatinine (0.8-1.3) mg/dL Est Cr Clr Drug Dosing mL/min Estimated GFR (MDRD) ml/min Glucose (74-106) mg/dL POC Glucose 274 H 223 H (60-110) mg/dL Calcium (8.5-10.1) mg/dL Magnesium 1.8 (1.8-2.4) mg/dL Total Bilirubin (0.2-1.0) mg/dL AST (15-37) IU/L ALT (14-63) IU/L Alkaline Phosphatase (46-116) U/L Total Protein (6.4-8.2) g/dL Albumin (3.4-5.0) g/dL Globulin (2.6-4.0) g/dL Albumin/Globulin Ratio (0.9-1.6) 07/27/19 07/28/19 07/28/19 Range/Units 20:51 05:07 05:07 WBC 4.62 (4.0-11.0) K/uL RBC 3.37 L (4.50-5.90) M/uL Hgb 8.1 L (13.0-17.0) g/dL Hct 26.9 L (38.0-50.0) % MCV 79.8 L (80.0-98.0) fL MCH 24.0 L (27.0-32.0) pg MCHC 30.1 L (31.0-37.0) g/dL RDW Std Deviation 51.5 (28.0-62.0) fl RDW Coeff of Theresa 18 H (11.0-15.0) % Plt Count 140 L (150-400) K/uL MPV 10.00 (7.40-12.00) fL Neut % (Auto) 62.8 (48.0-80.0) % Lymph % (Auto) 21.4 (16.0-40.0) % Bullitt % (Auto) 14.1 (0.0-15.0) % Eos % (Auto) 1.5 (0.0-7.0) % Baso % (Auto) 0.2 (0.0-1.5) % Neut # (Auto) 2.9 (1.4-5.7) K/uL Lymph # (Auto) 1.0 (0.6-2.4) K/uL Bullitt # (Auto) 0.7 (0.0-0.8) K/uL Eos # (Auto) 0.1 (0.0-0.7) K/uL Baso # (Auto) 0.0 (0.0-0.1) K/uL Nucleated RBC % 0.0 /100WBC Nucleated RBCs # 0 K/uL Sodium 142 (136-148) mmol/L Potassium 4.1 (3.5-5.1) mmol/L Chloride 104 (98-107) mmol/L Carbon Dioxide 26.7 (21.0-32.0) mmol/L BUN 42 H (7.0-18.0) mg/dL Creatinine 1.6 H (0.8-1.3) mg/dL Est Cr Clr Drug Dosing 34.56 mL/min Estimated GFR (MDRD) 41.6 ml/min Glucose 234 H (74-106) mg/dL POC Glucose 267 H (60-110) mg/dL Calcium 8.1 L (8.5-10.1) mg/dL Magnesium (1.8-2.4) mg/dL Total Bilirubin 0.3 (0.2-1.0) mg/dL AST 36 (15-37) IU/L ALT 62 (14-63) IU/L Alkaline Phosphatase 116 (46-116) U/L Total Protein 5.4 L (6.4-8.2) g/dL Albumin 2.9 L (3.4-5.0) g/dL Globulin 2.5 L (2.6-4.0) g/dL Albumin/Globulin Ratio 1.2 (0.9-1.6) 07/28/19 Range/Units 06:46 WBC (4.0-11.0) K/uL RBC (4.50-5.90) M/uL Hgb (13.0-17.0) g/dL Hct (38.0-50.0) % MCV (80.0-98.0) fL MCH (27.0-32.0) pg MCHC (31.0-37.0) g/dL RDW Std Deviation (28.0-62.0) fl RDW Coeff of Theresa (11.0-15.0) % Plt Count (150-400) K/uL MPV (7.40-12.00) fL Neut % (Auto) (48.0-80.0) % Lymph % (Auto) (16.0-40.0) % Bullitt % (Auto) (0.0-15.0) % Eos % (Auto) (0.0-7.0) % Baso % (Auto) (0.0-1.5) % Neut # (Auto) (1.4-5.7) K/uL Lymph # (Auto) (0.6-2.4) K/uL Bullitt # (Auto) (0.0-0.8) K/uL Eos # (Auto) (0.0-0.7) K/uL Baso # (Auto) (0.0-0.1) K/uL Nucleated RBC % /100WBC Nucleated RBCs # K/uL Sodium (136-148) mmol/L Potassium (3.5-5.1) mmol/L Chloride (98-107) mmol/L Carbon Dioxide (21.0-32.0) mmol/L BUN (7.0-18.0) mg/dL Creatinine (0.8-1.3) mg/dL Est Cr Clr Drug Dosing mL/min Estimated GFR (MDRD) ml/min Glucose (74-106) mg/dL POC Glucose 208 H (60-110) mg/dL Calcium (8.5-10.1) mg/dL Magnesium (1.8-2.4) mg/dL Total Bilirubin (0.2-1.0) mg/dL AST (15-37) IU/L ALT (14-63) IU/L Alkaline Phosphatase (46-116) U/L Total Protein (6.4-8.2) g/dL Albumin (3.4-5.0) g/dL Globulin (2.6-4.0) g/dL Albumin/Globulin Ratio (0.9-1.6) Florentino Results Last 24 Hours: Microbiology 07/25/19 05:11 Urine Culture - Final Urine, Voided Proteus Mirabilis Klebsiella Pneumoniae Enterococcus Faecalis Normal Urogenital Judy 07/25/19 13:10 Aerobic Blood Culture - Preliminary Blood - Venous - Lab Draw NO GROWTH AFTER 2 DAYS Anaerobic Blood Culture - Final 07/25/19 12:58 Aerobic Blood Culture - Preliminary Blood - Venous NO GROWTH AFTER 2 DAYS Anaerobic Blood Culture - Preliminary NO GROWTH AFTER 2 DAYS Med Orders - Current: Current Medications Acetaminophen (Tylenol) 650 mg PO Q6H PRN PRN Reason: Pain Last Admin: 07/27/19 05:20 Dose: 650 mg Albuterol/Ipratropium (Duoneb 3.0-0.5 Mg/3 Ml) 3 ml NEB Q4HRRT PRN PRN Reason: Shortness of Breath Last Admin: 07/27/19 06:56 Dose: 3 ml Atorvastatin Calcium (Lipitor) 40 mg PO BEDTIME [facility] Last Admin: 07/27/19 20:33 Dose: 40 mg Cholecalciferol (Vitamin D3) 50 mcg PO DAILY [facility] Last Admin: 07/28/19 08:20 Dose: 50 mcg Ciprofloxacin (Ciprofloxacin Hcl) 250 mg PO BID [facility] Last Admin: 07/28/19 08:19 Dose: 250 mg Citalopram Hydrobromide (Celexa) 20 mg PO DAILY [facility] Last Admin: 07/28/19 08:19 Dose: 20 mg Furosemide (Lasix) 40 mg IVPUSH Q12H [facility] Stop: 07/28/19 21:01 Last Admin: 07/28/19 08:45 Dose: 40 mg Insulin Aspart (Novolog) 0 unit SUBCUT TIDAC [facility]; Protocol Last Admin: 07/28/19 07:38 Dose: 6 units Levothyroxine Sodium (Levothyroxine) 25 mcg PO ACBREAKFAST [facility] Last Admin: 07/28/19 06:47 Dose: 25 mcg Metoprolol Tartrate (Lopressor) 100 mg PO BID [facility] Last Admin: 07/28/19 08:20 Dose: 100 mg Multivitamins/Minerals (Prosight) 1 tab PO BID [facility] Last Admin: 07/28/19 08:20 Dose: 1 tab Nystatin (Nystatin Crm) 1 gm TOP BID [facility] Last Admin: 07/28/19 09:39 Dose: Not Given Pantoprazole Sodium (Protonix) 40 mg PO ACBREAKFAST [facility] Last Admin: 07/28/19 08:19 Dose: 40 mg Tetrahydrozoline Hcl ([Visine] 1 Drop) 1 each EYERT ASDIRECTED PRN PRN Reason: Dry Eyes Sucralfate (Carafate) 1 gm PO QIDACANDBED [facility] Last Admin: 07/28/19 06:47 Dose: 1 gm Tamsulosin HCl (Flomax) 0.4 mg PO PCBREAKFAST [facility] Last Admin: 07/28/19 08:19 Dose: 0.4 mg Discontinued Medications Acetaminophen (Tylenol Extra Strength) 1,000 mg PO ONETIME ONE Stop: 07/24/19 21:05 Last Admin: 07/24/19 21:31 Dose: 1,000 mg Al Hydroxide/Mg Hydroxide (Mag-Al Plus) 30 ml PO ONETIME ONE Stop: 07/25/19 12:40 Last Admin: 07/25/19 13:01 Dose: 30 ml Apixaban (Eliquis) 2.5 mg PO BID [facility] Last Admin: 07/26/19 09:33 Dose: 2.5 mg Enoxaparin Sodium (Lovenox) 90 mg SUBCUT ONETIME ONE Stop: 07/25/19 02:04 Last Admin: 07/25/19 02:48 Dose: 90 mg Furosemide (Lasix) 60 mg PO DAILY [facility] Last Admin: 07/26/19 09:35 Dose: 60 mg Furosemide (Lasix) 20 mg IVPUSH ONETIME ONE Stop: 07/25/19 09:56 Last Admin: 07/26/19 22:10 Dose: 20 mg Furosemide (Lasix) 20 mg IVPUSH ONETIME ONE Stop: 07/25/19 12:16 Last Admin: 07/25/19 12:14 Dose: 20 mg Furosemide (Lasix) 20 mg IVPUSH NOW ONE Stop: 07/26/19 22:02 Last Admin: 07/26/19 22:06 Dose: 20 mg Furosemide (Lasix) Confirm Administered Dose 20 mg .ROUTE .STK-MED ONE Stop: 07/26/19 22:05 Last Admin: 07/26/19 23:05 Dose: Not Given Sodium Chloride (Normal Saline) 250 mls @ 125 mls/hr IV ASDIRECTED [facility] Last Admin: 07/25/19 02:53 Dose: 125 mls/hr Pantoprazole Sodium 40 mg/ (Sodium Chloride) 10 mls @ 300 mls/hr IV BID [facility] Last Admin: 07/27/19 20:35 Dose: 300 mls/hr Magnesium Sulfate 2 gm/ Premix 50 mls @ 50 mls/hr IV ONETIME ONE Stop: 07/25/19 10:47 Last Admin: 07/25/19 12:21 Dose: Not Given Magnesium Sulfate 2 gm/ Premix 50 mls @ 50 mls/hr IV ONETIME ONE Stop: 07/25/19 13:14 Last Admin: 07/25/19 12:20 Dose: 50 mls/hr Ceftriaxone Sodium 1 gm/ (Sodium Chloride) 50 mls @ 100 mls/hr IV Q12H [facility] Last Admin: 07/26/19 00:46 Dose: 100 mls/hr Ceftriaxone Sodium 1 gm/ (Sodium Chloride) 50 mls @ 100 mls/hr IV Q24H [facility] Last Admin: 07/27/19 00:21 Dose: 100 mls/hr Lactated Ringer's (Ringers, Lactated) 500 mls @ 200 mls/hr IV ONETIME ONE Stop: 07/26/19 12:53 Last Admin: 07/26/19 12:29 Dose: Not Given Lactated Ringer's (Ringers, Lactated) 1,000 mls @ 200 mls/hr IV ONETIME ONE Stop: 07/26/19 17:29 Last Admin: 07/26/19 12:35 Dose: 200 mls/hr Lactated Ringer's (Ringers, Lactated) 1,000 mls @ 200 mls/hr IV ONETIME ONE Stop: 07/27/19 00:59 Last Admin: 07/26/19 21:08 Dose: 200 mls/hr Magnesium Sulfate 2 gm/ Premix 50 mls @ 50 mls/hr IV ONETIME ONE Stop: 07/27/19 23:42 Last Admin: 07/27/19 22:57 Dose: 50 mls/hr Methylprednisolone Sodium Succinate (Solu-Medrol) 40 mg IV ONETIME ONE Stop: 07/25/19 14:01 Last Admin: 07/25/19 14:25 Dose: 40 mg Methylprednisolone Sodium Succinate (Solu-Medrol) 125 mg IVPUSH ONETIME ONE Stop: 07/25/19 16:19 Last Admin: 07/25/19 16:50 Dose: 125 mg - Exam General: Alert, Oriented, Cooperative, No Acute Distress Neck: JVD Lungs: Clear to Auscultation, Normal Respiratory Effort, Decreased Breath Sounds. No: Crackles, Wheezing Cardiovascular: Irregular Rhythm GI/Abdominal Exam: Normal Bowel Sounds, Soft, Non-Tender Extremities: Other (2+ pedal edema bilaterally) Skin: Warm, Dry Sepsis Event Note - Evaluation Sepsis Screening Result: No Definite Risk - Focused Exam Vital Signs: Vital Signs Temp Pulse Pulse Resp BP BP Pulse Ox 07/28/19 08:20 81 132/54 L 07/28/19 07:54 36.5 C 81 19 132/54 L 07/28/19 04:00 36.5 C 72 18 143/62 H 96 Date Exam was Performed: 07/28/19 Time Exam was Performed: 12:54 - Problem List Review Problem List Initiated/Reviewed/Updated: Yes - My Orders Last 24 Hours: My Active Orders 07/27/19 12:31 Tamsulosin [Flomax] 0.4 mg PO PCBREAKFAST 07/28/19 08:00 Pantoprazole [ProTONIX] 40 mg PO ACBREAKFAST 07/28/19 09:37 Remove Bruno Catheter [Urinary Catheter Removal] [RC] Per Unit Routine 07/28/19 Dinner Regular Diet [DIET] 07/29/19 05:11 CBC WITH AUTO DIFF [HEME] AM COMPREHENSIVE METABOLIC PN,CMP [CHEM] AM - Plan Plan:: A: 1. Acute on chronic CHF exacerbation, improving 2. Acute on chronic kidney disease, improving 3. Normocytic anemia, stable 4. Afib, rate controlled 5. Chronic PE 6. UTI P: 1. Will give 1 unit PRBCs and see if that helps with his fatigue. In addition, continue Lasix 40 mg IV Q12H, strict I/O, fluid restriction 2L. Will DC bruno and monitor urine output. For now, continue holding Eliquis due to anemia and restart as outpatient. Wean O2. dispo: plan to dc likely tomorrow
[2019-07-28] MEDS: atorvaSTATin 40 MG Tab PO SCH (20:13)
[2019-07-29] MEDS: Nystatin Crm 30 GM Tube TOP SCH ×2 (01:14→09:23)
[2019-07-29 06:00] LABS: CARBON DIOXIDE,CO2 30.7 mmol/L (21.0-32.0); POTASSIUM,K 3.2 mmol/L (3.5-5.1)
[2019-07-29] MEDS: Sucralfate Suspension 1 GM/10 ML Cup PO SCH ×2 (06:34→12:12)
[2019-07-29] MEDS: Pantoprazole 40 MG Tab.CR PO SCH (06:34)
[2019-07-29] MEDS: Levothyroxine 25 MCG Tab PO SCH (06:34)
[2019-07-29] MEDS ORDERED: Potassium Chloride 20 MEQ Tab.ER PO ONE (07:47)
[2019-07-29] MEDS ORDERED: Potassium Chloride 20 MEQ Tab.ER ONE (08:23)
[2019-07-29] MEDS: Insulin Aspart 100 Units/ML 3 ML Pen SUBCUT SCH ×2 (08:25→12:13)
[2019-07-29] MEDS: Metoprolol Tartrate 50 MG Tab PO SCH (09:06)
[2019-07-29] MEDS: Beta-Carotene (Vitamin A) w/Vitamin C & E plus Minerals Tab PO SCH (09:08)
[2019-07-29] MEDS: Ciprofloxacin 250 MG Tab PO SCH (09:08)
[2019-07-29] MEDS: Cholecalciferol (Vitamin D3) 25 MCG Tab PO SCH (09:12)
[2019-07-29] MEDS: Tamsulosin 0.4 MG Cap.ER PO SCH (09:13)
[2019-07-29] MEDS ORDERED: Magnesium Sulfate/Water 2 GM in Premix Bag 1 BAG IV ONE (09:57)
[2019-07-29] MEDS: Citalopram 20 MG Tab PO SCH (10:12)
--- NOTE | 2019-07-29 12:26 | PCM.DCSUM1 ---
Discharge Summary - Hospital Course Free Text/Narrative:: 83 y/o male with PMH CHF, Afib on Eliquis, Diabetes type 2 who presented to the ER complaining of generalized weakness. Admitted for acute on chronic CHF exacerbation. BNP elevated at 3300 and 2+ pitting edema in lower extremities. He was diuresed aggressively with IV lasix with good urine output and improvement in his edema. In addition, he was found to have a UTI growing Proteus, Klebsiella and started on antibiotics. He was found to be anemia with Hg 8.5 which remained stable. However, FOBT was positive. He was started on pantoprazole IV and H/H monitored which remained stable. He did receive 1 unit PRBCs with final Hg 8.8. Since there was a concern for GI bleed, his Eliquis was discontinued during this hospitalization. He was started on levothyroxine since he was found to be hypothyroid with TSH at 15. He remained hemodynamically stable. His weakness improved, however, he was still having some deconditioning which was limiting his ability to ambulate freely. He was discharged home with Quad cane for support, Home health with physical therapy for continued medication monitoring and strengthening due to deconditioning. Dr. Burgess will be following client after discharge from hospital. He was advised to continue taking his lasix at home and limit his fluid intake to 2L /day. In addition, his Eliquis was held at discharge due to high bleeding risk. He was advised to follow-up with PCP and cardiology outpatient. - Discharge Data Discharge Date: 07/29/19 Discharge Disposition: Home, Self-Care 01 Condition: Stable - Referral to Home Health Date of Face to Face Encounter: 07/29/19 Primary Care Physician: PCP Unknown - Patient Summary/Data Consults: Consultations 07/26/19 09:00 Consult to Physical Therapy [PT Evaluation and Treatment] [CONS] Routine - Patient Instructions Diet: Heart Healthy Diet Fluid Restriction: 2000 mL Activity: As Tolerated Notify Provider of: Fever, Increased Pain, Swelling and Redness, Nausea and/or Vomiting Other/Special Instructions: Needs Home Health. - Discharge Plan Prescriptions/Med Rec: Citalopram [Citalopram HBr] 20 mg PO DAILY 30 Days #30 tablet Furosemide [Lasix] 40 mg PO BID #60 tablet Levothyroxine 25 mcg PO ACBREAKFAST 30 Days #30 tablet Potassium Chloride [Klor-Con M20] 20 meq PO DAILY 30 Days #30 tab.er Tamsulosin [Flomax] 0.4 mg PO PCBREAKFAST 30 Days #30 cap.er Home Medications: Home Meds Losartan Potassium 100 mg PO DAILY 02/23/14 [History] Metoprolol Tartrate 100 mg PO BID 02/23/14 [History] atorvaSTATin Calcium [Atorvastatin Calcium] 40 mg PO BEDTIME 02/23/14 [History] metFORMIN [Glucophage] 1,000 mg PO BID 02/23/14 [History] Cholecalciferol (Vitamin D3) [Vitamin D3] 2,000 units PO DAILY 01/30/17 [History ] SitaGLIPtin [Januvia] 100 mg PO DAILY 01/30/17 [History] Tetrahydrozoline HCl [Visine] 1 drop EYERT ASDIRECTED PRN 01/30/17 [History] Vit A/Vit C/Vit E/Zinc/Copper [Preservision] 1 tab PO BID 07/30/18 [History] Nystatin [Nystatin Crm] 1 gm TOP BID tube 05/19/19 [Rx] Pantoprazole [ProTONIX] 40 mg PO BIDAC 30 Days #60 tab.cr 05/19/19 [Rx] Sucralfate [Carafate] 1 gm PO QIDACANDBED 30 Days #120 cup 05/19/19 [Rx] Citalopram [Citalopram HBr] 20 mg PO DAILY 30 Days #30 tablet 07/29/19 [Rx] Furosemide [Lasix] 40 mg PO BID #60 tablet 07/29/19 [Rx] Levothyroxine 25 mcg PO ACBREAKFAST 30 Days #30 tablet 07/29/19 [Rx] Potassium Chloride [Klor-Con M20] 20 meq PO DAILY 30 Days #30 tab.er 07/29/19 [ Rx] Tamsulosin [Flomax] 0.4 mg PO PCBREAKFAST 30 Days #30 cap.er 07/29/19 [Rx] Patient Handouts: Furosemide tablets, Citalopram tablets, Levothyroxine tablets , Potassium chloride tablets, extended-release tablets or capsules, Fatigue, Tamsulosin capsules Referrals: Harleen Appiah MD [Physician] - 08/02/19 1:00 pm Harry Pacheco MD [Physician] - 08/10/19 2:00 pm - Discharge Summary/Plan Comment DC Time >30 min.: No - Patient Data Vitals - Most Recent: Last Vital Signs Temp 37.0 C 07/29/19 12:00 Pulse 77 07/29/19 09:06 Resp 20 07/29/19 04:00 BP 143/66 H 07/29/19 09:06 Pulse Ox 95 07/29/19 04:00 Weight - Most Recent: 81.7 kg I&O - Last 24 hours: Intake & Output 07/28/19 07/29/19 07/29/19 22:59 06:59 14:59 Intake Total 1000 500 Output Total 50 1350 Balance 950 -850 Lab Results - Last 24 hrs: Laboratory Results - last 24 hr 07/25/19 07/28/19 07/28/19 Range/Units 16:23 17:08 17:29 WBC (4.0-11.0) K/uL RBC (4.50-5.90) M/uL Hgb 9.3 L (13.0-17.0) g/dL Hct (38.0-50.0) % MCV (80.0-98.0) fL MCH (27.0-32.0) pg MCHC (31.0-37.0) g/dL RDW Std Deviation (28.0-62.0) fl RDW Coeff of Theresa (11.0-15.0) % Plt Count (150-400) K/uL MPV (7.40-12.00) fL Neut % (Auto) (48.0-80.0) % Lymph % (Auto) (16.0-40.0) % [place] % (Auto) (0.0-15.0) % Eos % (Auto) (0.0-7.0) % Baso % (Auto) (0.0-1.5) % Neut # (Auto) (1.4-5.7) K/uL Lymph # (Auto) (0.6-2.4) K/uL [place] # (Auto) (0.0-0.8) K/uL Eos # (Auto) (0.0-0.7) K/uL Baso # (Auto) (0.0-0.1) K/uL Nucleated RBC % /100WBC Nucleated RBCs # K/uL Sodium (136-148) mmol/L Potassium (3.5-5.1) mmol/L Chloride (98-107) mmol/L Carbon Dioxide (21.0-32.0) mmol/L BUN (7.0-18.0) mg/dL Creatinine (0.8-1.3) mg/dL Est Cr Clr Drug Dosing mL/min Estimated GFR (MDRD) ml/min Glucose (74-106) mg/dL POC Glucose 217 H (60-110) mg/dL Calcium (8.5-10.1) mg/dL Magnesium (1.8-2.4) mg/dL Total Bilirubin (0.2-1.0) mg/dL AST (15-37) IU/L ALT (14-63) IU/L Alkaline Phosphatase (46-116) U/L Total Protein (6.4-8.2) g/dL Albumin (3.4-5.0) g/dL Globulin (2.6-4.0) g/dL Albumin/Globulin Ratio (0.9-1.6) Crossmatch See Detail 07/28/19 07/29/19 07/29/19 Range/Units 22:07 05:13 05:13 WBC 4.11 (4.0-11.0) K/uL RBC 3.54 L (4.50-5.90) M/uL Hgb 8.8 L (13.0-17.0) g/dL Hct 28.1 L (38.0-50.0) % MCV 79.4 L (80.0-98.0) fL MCH 24.9 L (27.0-32.0) pg MCHC 31.3 (31.0-37.0) g/dL RDW Std Deviation 49.9 (28.0-62.0) fl RDW Coeff of Theresa 17 H (11.0-15.0) % Plt Count 137 L (150-400) K/uL MPV 9.60 (7.40-12.00) fL Neut % (Auto) 55.3 (48.0-80.0) % Lymph % (Auto) 24.8 (16.0-40.0) % [place] % (Auto) 16.8 H (0.0-15.0) % Eos % (Auto) 2.9 (0.0-7.0) % Baso % (Auto) 0.2 (0.0-1.5) % Neut # (Auto) 2.3 (1.4-5.7) K/uL Lymph # (Auto) 1.0 (0.6-2.4) K/uL [place] # (Auto) 0.7 (0.0-0.8) K/uL Eos # (Auto) 0.1 (0.0-0.7) K/uL Baso # (Auto) 0.0 (0.0-0.1) K/uL Nucleated RBC % 0.0 /100WBC Nucleated RBCs # 0 K/uL Sodium 142 (136-148) mmol/L Potassium 3.2 L (3.5-5.1) mmol/L Chloride 105 (98-107) mmol/L Carbon Dioxide 30.7 (21.0-32.0) mmol/L BUN 36 H (7.0-18.0) mg/dL Creatinine 1.4 H (0.8-1.3) mg/dL Est Cr Clr Drug Dosing 39.50 mL/min Estimated GFR (MDRD) 48.5 ml/min Glucose 166 H (74-106) mg/dL POC Glucose 130 H (60-110) mg/dL Calcium 8.1 L (8.5-10.1) mg/dL Magnesium (1.8-2.4) mg/dL Total Bilirubin 0.4 (0.2-1.0) mg/dL AST 23 (15-37) IU/L ALT 52 (14-63) IU/L Alkaline Phosphatase 118 H (46-116) U/L Total Protein 5.3 L (6.4-8.2) g/dL Albumin 2.8 L (3.4-5.0) g/dL Globulin 2.5 L (2.6-4.0) g/dL Albumin/Globulin Ratio 1.1 (0.9-1.6) Crossmatch 07/29/19 07/29/19 07/29/19 Range/Units 05:13 06:07 08:09 WBC (4.0-11.0) K/uL RBC (4.50-5.90) M/uL Hgb (13.0-17.0) g/dL Hct (38.0-50.0) % MCV (80.0-98.0) fL MCH (27.0-32.0) pg MCHC (31.0-37.0) g/dL RDW Std Deviation (28.0-62.0) fl RDW Coeff of Theresa (11.0-15.0) % Plt Count (150-400) K/uL MPV (7.40-12.00) fL Neut % (Auto) (48.0-80.0) % Lymph % (Auto) (16.0-40.0) % [place] % (Auto) (0.0-15.0) % Eos % (Auto) (0.0-7.0) % Baso % (Auto) (0.0-1.5) % Neut # (Auto) (1.4-5.7) K/uL Lymph # (Auto) (0.6-2.4) K/uL [place] # (Auto) (0.0-0.8) K/uL Eos # (Auto) (0.0-0.7) K/uL Baso # (Auto) (0.0-0.1) K/uL Nucleated RBC % /100WBC Nucleated RBCs # K/uL Sodium (136-148) mmol/L Potassium (3.5-5.1) mmol/L Chloride (98-107) mmol/L Carbon Dioxide (21.0-32.0) mmol/L BUN (7.0-18.0) mg/dL Creatinine (0.8-1.3) mg/dL Est Cr Clr Drug Dosing mL/min Estimated GFR (MDRD) ml/min Glucose (74-106) mg/dL POC Glucose 163 H 156 H (60-110) mg/dL Calcium (8.5-10.1) mg/dL Magnesium 1.7 L (1.8-2.4) mg/dL Total Bilirubin (0.2-1.0) mg/dL AST (15-37) IU/L ALT (14-63) IU/L Alkaline Phosphatase (46-116) U/L Total Protein (6.4-8.2) g/dL Albumin (3.4-5.0) g/dL Globulin (2.6-4.0) g/dL Albumin/Globulin Ratio (0.9-1.6) Crossmatch 07/29/19 07/29/19 Range/Units 12:02 12:04 WBC (4.0-11.0) K/uL RBC (4.50-5.90) M/uL Hgb (13.0-17.0) g/dL Hct (38.0-50.0) % MCV (80.0-98.0) fL MCH (27.0-32.0) pg MCHC (31.0-37.0) g/dL RDW Std Deviation (28.0-62.0) fl RDW Coeff of Theresa (11.0-15.0) % Plt Count (150-400) K/uL MPV (7.40-12.00) fL Neut % (Auto) (48.0-80.0) % Lymph % (Auto) (16.0-40.0) % [place] % (Auto) (0.0-15.0) % Eos % (Auto) (0.0-7.0) % Baso % (Auto) (0.0-1.5) % Neut # (Auto) (1.4-5.7) K/uL Lymph # (Auto) (0.6-2.4) K/uL [place] # (Auto) (0.0-0.8) K/uL Eos # (Auto) (0.0-0.7) K/uL Baso # (Auto) (0.0-0.1) K/uL Nucleated RBC % /100WBC Nucleated RBCs # K/uL Sodium (136-148) mmol/L Potassium (3.5-5.1) mmol/L Chloride (98-107) mmol/L Carbon Dioxide (21.0-32.0) mmol/L BUN (7.0-18.0) mg/dL Creatinine (0.8-1.3) mg/dL Est Cr Clr Drug Dosing mL/min Estimated GFR (MDRD) ml/min Glucose (74-106) mg/dL POC Glucose 329 H 324 H (60-110) mg/dL Calcium (8.5-10.1) mg/dL Magnesium (1.8-2.4) mg/dL Total Bilirubin (0.2-1.0) mg/dL AST (15-37) IU/L ALT (14-63) IU/L Alkaline Phosphatase (46-116) U/L Total Protein (6.4-8.2) g/dL Albumin (3.4-5.0) g/dL Globulin (2.6-4.0) g/dL Albumin/Globulin Ratio (0.9-1.6) Crossmatch ADRIANO Results - Last 24 hrs: Microbiology 07/25/19 13:10 Aerobic Blood Culture - Preliminary Blood - Venous - Lab Draw NO GROWTH AFTER 3 DAYS Anaerobic Blood Culture - Final 07/25/19 12:58 Aerobic Blood Culture - Preliminary Blood - Venous NO GROWTH AFTER 3 DAYS Anaerobic Blood Culture - Preliminary NO GROWTH AFTER 3 DAYS 07/25/19 05:11 Urine Culture - Final Urine, Voided Proteus Mirabilis Klebsiella Pneumoniae Enterococcus Faecalis Normal Urogenital Judy Med Orders - Current: Current Medications Acetaminophen (Tylenol) 650 mg PO Q6H PRN PRN Reason: Pain Last Admin: 07/27/19 05:20 Dose: 650 mg Albuterol/Ipratropium (Duoneb 3.0-0.5 Mg/3 Ml) 3 ml NEB Q4HRRT PRN PRN Reason: Shortness of Breath Last Admin: 07/27/19 06:56 Dose: 3 ml Atorvastatin Calcium (Lipitor) 40 mg PO BEDTIME [facility] Last Admin: 07/28/19 20:13 Dose: 40 mg Cholecalciferol (Vitamin D3) 50 mcg PO DAILY [facility] Last Admin: 07/29/19 09:12 Dose: 50 mcg Ciprofloxacin (Ciprofloxacin Hcl) 250 mg PO BID [facility] Last Admin: 07/29/19 09:08 Dose: 250 mg Citalopram Hydrobromide (Celexa) 20 mg PO DAILY [facility] Last Admin: 07/29/19 10:12 Dose: 20 mg Insulin Aspart (Novolog) 0 unit SUBCUT TIDAC [facility]; Protocol Last Admin: 07/29/19 12:13 Dose: 12 units Levothyroxine Sodium (Levothyroxine) 25 mcg PO ACBREAKFAST [facility] Last Admin: 07/29/19 06:34 Dose: 25 mcg Metoprolol Tartrate (Lopressor) 100 mg PO BID [facility] Last Admin: 07/29/19 09:06 Dose: 100 mg Multivitamins/Minerals (Prosight) 1 tab PO BID [facility] Last Admin: 07/29/19 09:08 Dose: 1 tab Nystatin (Nystatin Crm) 1 gm TOP BID [facility] Last Admin: 07/29/19 09:23 Dose: Not Given Pantoprazole Sodium (Protonix) 40 mg PO ACBREAKFAST [facility] Last Admin: 07/29/19 06:34 Dose: 40 mg Tetrahydrozoline Hcl ([Visine] 1 Drop) 1 each EYERT ASDIRECTED PRN PRN Reason: Dry Eyes Sucralfate (Carafate) 1 gm PO QIDACANDBED [facility] Last Admin: 07/29/19 12:12 Dose: 1 gm Tamsulosin HCl (Flomax) 0.4 mg PO PCBREAKFAST [facility] Last Admin: 07/29/19 09:13 Dose: 0.4 mg Discontinued Medications Acetaminophen (Tylenol Extra Strength) 1,000 mg PO ONETIME ONE Stop: 07/24/19 21:05 Last Admin: 07/24/19 21:31 Dose: 1,000 mg Al Hydroxide/Mg Hydroxide (Mag-Al Plus) 30 ml PO ONETIME ONE Stop: 07/25/19 12:40 Last Admin: 07/25/19 13:01 Dose: 30 ml Apixaban (Eliquis) 2.5 mg PO BID [facility] Last Admin: 07/26/19 09:33 Dose: 2.5 mg Enoxaparin Sodium (Lovenox) 90 mg SUBCUT ONETIME ONE Stop: 07/25/19 02:04 Last Admin: 07/25/19 02:48 Dose: 90 mg Furosemide (Lasix) 60 mg PO DAILY [facility] Last Admin: 07/26/19 09:35 Dose: 60 mg Furosemide (Lasix) 20 mg IVPUSH ONETIME ONE Stop: 07/25/19 09:56 Last Admin: 07/26/19 22:10 Dose: 20 mg Furosemide (Lasix) 20 mg IVPUSH ONETIME ONE Stop: 07/25/19 12:16 Last Admin: 07/25/19 12:14 Dose: 20 mg Furosemide (Lasix) 20 mg IVPUSH NOW ONE Stop: 07/26/19 22:02 Last Admin: 07/26/19 22:06 Dose: 20 mg Furosemide (Lasix) Confirm Administered Dose 20 mg .ROUTE .STK-MED ONE Stop: 07/26/19 22:05 Last Admin: 07/26/19 23:05 Dose: Not Given Furosemide (Lasix) 40 mg IVPUSH Q12H [facility] Stop: 07/28/19 21:01 Last Admin: 07/28/19 20:15 Dose: 40 mg Sodium Chloride (Normal Saline) 250 mls @ 125 mls/hr IV ASDIRECTED [facility] Last Admin: 07/25/19 02:53 Dose: 125 mls/hr Pantoprazole Sodium 40 mg/ (Sodium Chloride) 10 mls @ 300 mls/hr IV BID [facility] Last Admin: 07/27/19 20:35 Dose: 300 mls/hr Magnesium Sulfate 2 gm/ Premix 50 mls @ 50 mls/hr IV ONETIME ONE Stop: 07/25/19 10:47 Last Admin: 07/25/19 12:21 Dose: Not Given Magnesium Sulfate 2 gm/ Premix 50 mls @ 50 mls/hr IV ONETIME ONE Stop: 07/25/19 13:14 Last Admin: 07/25/19 12:20 Dose: 50 mls/hr Ceftriaxone Sodium 1 gm/ (Sodium Chloride) 50 mls @ 100 mls/hr IV Q12H [facility] Last Admin: 07/26/19 00:46 Dose: 100 mls/hr Ceftriaxone Sodium 1 gm/ (Sodium Chloride) 50 mls @ 100 mls/hr IV Q24H [facility] Last Admin: 07/27/19 00:21 Dose: 100 mls/hr Lactated Ringer's (Ringers, Lactated) 500 mls @ 200 mls/hr IV ONETIME ONE Stop: 07/26/19 12:53 Last Admin: 07/26/19 12:29 Dose: Not Given Lactated Ringer's (Ringers, Lactated) 1,000 mls @ 200 mls/hr IV ONETIME ONE Stop: 07/26/19 17:29 Last Admin: 07/26/19 12:35 Dose: 200 mls/hr Lactated Ringer's (Ringers, Lactated) 1,000 mls @ 200 mls/hr IV ONETIME ONE Stop: 07/27/19 00:59 Last Admin: 07/26/19 21:08 Dose: 200 mls/hr Magnesium Sulfate 2 gm/ Premix 50 mls @ 50 mls/hr IV ONETIME ONE Stop: 07/27/19 23:42 Last Admin: 07/27/19 22:57 Dose: 50 mls/hr Magnesium Sulfate 2 gm/ Premix 50 mls @ 50 mls/hr IV ONETIME ONE Stop: 07/29/19 10:56 Last Admin: 07/29/19 10:13 Dose: 50 mls/hr Methylprednisolone Sodium Succinate (Solu-Medrol) 40 mg IV ONETIME ONE Stop: 07/25/19 14:01 Last Admin: 07/25/19 14:25 Dose: 40 mg Methylprednisolone Sodium Succinate (Solu-Medrol) 125 mg IVPUSH ONETIME ONE Stop: 07/25/19 16:19 Last Admin: 07/25/19 16:50 Dose: 125 mg Potassium Chloride (Klor-Con M20) 40 meq PO ONETIME ONE Stop: 07/29/19 07:48 Last Admin: 07/29/19 08:20 Dose: 40 meq Potassium Chloride (Klor-Con M20) Confirm Administered Dose 20 meq .ROUTE .STK- MED ONE Stop: 07/29/19 08:24 Last Admin: 07/29/19 10:00 Dose: Not Given
[2019-07-29 12:32] VITALS: BP 138/70; PULSE 80
== END 2019-07-29 15:00 | disposition home or self-care (01) | DRG 292 ==
LOC: MW.ED 20:46 → MW.MS 07-25 02:09 → OBSVTOIN 07-25 15:43
PROVIDERS: ADMIT Student in an Organized Health Care Education/Training Program; ATTEND Student in an Organized Health Care Education/Training Program
PROC: 30233N1 Transfusion of Nonautologous Red Blood Cells into Peripheral Vein, Percutaneous Approach (ICD-10-PCS; principal; 2019-07-28)
DX: I13.0 Hypertensive heart and chronic kidney disease with heart failure and stage 1 through stage 4 chronic kidney disease, or unspecified chronic kidney disease (principal); N39.0 Urinary tract infection, site not specified; R06.09 Other forms of dyspnea; R79.1 Abnormal coagulation profile; D64.9 Anemia, unspecified; N17.9 Acute kidney failure, unspecified; E78.5 Hyperlipidemia, unspecified; H91.93 Unspecified hearing loss, bilateral; I50.9 Heart failure, unspecified; B96.4 Proteus (mirabilis) (morganii) as the cause of diseases classified elsewhere; E78.00 Pure hypercholesterolemia, unspecified; B96.89 Other specified bacterial agents as the cause of diseases classified elsewhere; I48.91 Unspecified atrial fibrillation; E87.5 Hyperkalemia; N42.9 Disorder of prostate, unspecified; I69.354 Hemiplegia and hemiparesis following cerebral infarction affecting left non-dominant side; I69.311 Memory deficit following cerebral infarction; I69.398 Other sequelae of cerebral infarction; E83.39 Other disorders of phosphorus metabolism; Z79.01 Long term (current) use of anticoagulants; R53.1 Weakness; H54.7 Unspecified visual loss; Z91.018 Allergy to other foods; H91.90 Unspecified hearing loss, unspecified ear; H35.30 Unspecified macular degeneration; F32.9 Major depressive disorder, single episode, unspecified; N18.3 Chronic kidney disease, stage 3 (moderate); E11.22 Type 2 diabetes mellitus with diabetic chronic kidney disease; D50.0 Iron deficiency anemia secondary to blood loss (chronic); E03.9 Hypothyroidism, unspecified; Z88.8 Allergy status to other drugs, medicaments and biological substances; Z91.048 Other nonmedicinal substance allergy status; Z79.84 Long term (current) use of oral hypoglycemic drugs; Z79.899 Other long term (current) drug therapy; Z90.89 Acquired absence of other organs; Z94.7 Corneal transplant status; Z98.49 Cataract extraction status, unspecified eye; Z90.79 Acquired absence of other genital organ(s); Z98.890 Other specified postprocedural states; Z99.81 Dependence on supplemental oxygen; I25.2 Old myocardial infarction; Z79.51 Long term (current) use of inhaled steroids; Z88.0 Allergy status to penicillin; Z86.73 Personal history of transient ischemic attack (TIA), and cerebral infarction without residual deficits
CPT/HCPCS: 36415 ×2; 51701; 70450; 71045; 80048; 80053; 80305; 80307 ×2; 81001; 82962 ×2; 83690; 83735 ×2; 83880 ×2; 84100 ×2; 84439; 84443; 84484; 85025 ×2; 85379; 85610; 85652; 87040 ×2; 87086; 87088 ×2; 87186 ×3; 93005; 93971; 96365; 96372; 96375; 99285; A9270 ×10; C9113; J0696; J1650; J1815; J2920; J3475; J7030; J7050 ×2; 36430; 51702; 51798; 82272; 84481; 85018; 86850; 86900; 86901; 86920; 86921; 86922; 94640; 97161-GP; J1940; J2930; J7120; J7620-GY; P9016

== ENCOUNTER 2019-08-02 15:21 | Emergency (ER) | payer MEDICARE ==
--- NOTE | 2019-08-02 16:40 | EDM.PDOCBH ---
ED HPI GENERAL MEDICAL PROBLEM - General Chief Complaint: Behavioral/Psych Stated Complaint: SUICIDAL THOUGHTS Time Seen by Provider: 08/02/19 15:50 Source of Information: Reports: Patient, Family - History of Present Illness INITIAL COMMENTS - FREE TEXT/NARRATIVE: Patient complains of feeling suicidal. His says that he made statements this morning to the fact that he would like to kill himself. Patient says he does have a plan, but he will not tell me. He says he wants to because his health is getting worse and worse. He is very distressed over his health problems. Denies hallucinations. He is depressed. He also endorses anxiety. He denies taking pills to harm himself and says he did not do anything specific today. Patient's says he is threatened suicide before but has not acted on it. I asked if he has access to weapons. The says there are guns in the home. She says she does not know where they are. I asked the patient where the guns are. He smoked a little and said he knows, but he is not telling. headache Pain Score (Numeric/FACES): 1 - Related Data Allergies Allergy/AdvReac Type Severity Reaction Status Date / Time Penicillins Allergy Rash Verified 08/02/19 15:55 Adhesives Allergy Hives Uncoded 08/02/19 15:55 Jeruselum Artichoke Allergy Hives Uncoded 08/02/19 15:55 Leachy Nuts Allergy Hives Uncoded 08/02/19 15:55 Amelia Seeds Allergy Hives Uncoded 08/02/19 15:55 Home Meds: Home Meds Losartan Potassium 100 mg PO DAILY 02/23/14 [History] Metoprolol Tartrate 100 mg PO BID 02/23/14 [History] atorvaSTATin Calcium [Atorvastatin Calcium] 40 mg PO BEDTIME 02/23/14 [History] metFORMIN [Glucophage] 1,000 mg PO BID 02/23/14 [History] Cholecalciferol (Vitamin D3) [Vitamin D3] 2,000 units PO DAILY 01/30/17 [History ] SitaGLIPtin [Januvia] 100 mg PO DAILY 01/30/17 [History] Tetrahydrozoline HCl [Visine] 1 drop EYERT ASDIRECTED PRN 01/30/17 [History] Vit A/Vit C/Vit E/Zinc/Copper [Preservision] 1 tab PO BID 07/30/18 [History] Nystatin [Nystatin Crm] 1 gm TOP BID tube 05/19/19 [Rx] Pantoprazole [ProTONIX] 40 mg PO BIDAC 30 Days #60 tab.cr 05/19/19 [Rx] Sucralfate [Carafate] 1 gm PO QIDACANDBED 30 Days #120 cup 05/19/19 [Rx] Citalopram [Citalopram HBr] 20 mg PO DAILY 30 Days #30 tablet 07/29/19 [Rx] Furosemide [Lasix] 40 mg PO BID #60 tablet 07/29/19 [Rx] Levothyroxine 25 mcg PO ACBREAKFAST 30 Days #30 tablet 07/29/19 [Rx] Potassium Chloride [Klor-Con M20] 20 meq PO DAILY 30 Days #30 tab.er 07/29/19 [ Rx] Tamsulosin [Flomax] 0.4 mg PO PCBREAKFAST 30 Days #30 cap.er 07/29/19 [Rx] Past Medical History HEENT History: Reports: Hard of Hearing, Impaired Vision, Macular Degeneration, Other (See Below) Other HEENT History: 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16, wears glasses , tracey hearing aids Cardiovascular History: Reports: Afib, High Cholesterol, Hypertension, ID Respiratory History: Reports: None Gastrointestinal History: Reports: Other (See Below) Other Gastrointestinal History: hernia Genitourinary History: Reports: Prostate Disorder Musculoskeletal History: Reports: Other (See Below) Other Musculoskeletal History: fx fingers Neurological History: Reports: TIA, Other (See Below) Other Neuro History: unsteady gait, TIA March,-weaker on left side, also memomy and walk affected Psychiatric History: Reports: Depression Endocrine/Metabolic History: Reports: Diabetes, Type II Hematologic History: Reports: Anemia - Infectious Disease History Infectious Disease History: Reports: Chicken Pox, Mumps - Past Surgical History HEENT Surgical History: Reports: Cataract Surgery, Eye Surgery, Tonsillectomy Other HEENT Surgeries/Procedures: prostetic left eye, 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, GI Surgical History: Reports: Hernia, Inguinal Other GI Surgeries/Procedures: inguinal hernia repair x2 Male Surgical History: Reports: TURP-Transurethral Resection of Prostate Social & Family History - Family History Family Medical History: Noncontributory Cardiac: Reports: Hypertension, ID - Tobacco Use Smoking Status *Q: Never Smoker - Caffeine Use Caffeine Use: Reports: Coffee - Recreational Drug Use Recreational Drug Use: No ED ROS GENERAL - Review of Systems Review Of Systems: See Below Constitutional: Denies: Fever, Chills, Malaise, Decreased Appetite Respiratory: Denies: Shortness of Breath, Cough Cardiovascular: Denies: Chest Pain GI/Abdominal: Denies: Abdominal Pain Psychiatric: Reports: Anxiety, Depression, Suicidal Ideation. Denies: Confusion , Hallucinations, Homicidal Ideation, Mood Lability ED EXAM, BEHAVIORAL HEALTH - Physical Exam Exam: See Below Text/Narrative:: General: alert, well appearing, no acute distress HEENT: Atraumatic, normocephalic, pupils reactive, negative for conjunctival pallor or scleral icterus, mucous membranes moist, throat clear, handling oral secretions well. Neck: supple, nontender, trachea midline. Lungs: Clear to auscultation, breath sounds equal bilaterally, chest nontender. Heart: S1S2, regular, negative for clicks, rubs, or JVD. Abdomen: Soft, nondistended, nontender. Negative for masses or hepatosplenomegaly. Skin: warm, dry, good turgor. Musculoskeletal: soft compartments. Extremities: Atraumatic, negative for cords or calf pain. Neurovascular unremarkable. Neuro: Awake, alert, oriented. Cranial nerves II through XII unremarkable. Cerebellum unremarkable. Motor and sensory unremarkable throughout. Exam nonfocal. Psych: Very sad affect. Cooperative. Normal rate, rhythm, volume, content of speech. Avoids eye contact. COURSE, BEHAVIORAL HEALTH COMP - Course Vital Signs: Last Vital Signs Temp 96.8 F L 08/02/19 20:01 Pulse 81 08/02/19 20:01 Resp 18 08/02/19 20:01 BP 152/59 H 08/02/19 20:01 Pulse Ox 99 08/02/19 20:01 ekg 84 bpm atrial flutter normal axis normal QRS prolonged QT CBC: anemia, otherwise unremarkable CMP: mildly elevated BUN/Cr; hyperglycemia (glu 163) Ua: neg nit, tr LE, rare bacteria Magnesium: 1.5 (decr) TSH: 8.57 (elev) Acetaminophen: neg EtOH: neg Salicylate: neg There was concern on my part because patient said that he has guns in his house and he will not tell us where any of the guns are. We do not know if any are here in the emergency department. I notified the charge nurse, who called police to come and search the patient. No handgun was found on the patient's person or in his belongings. Pt cooperative overall while in the ED. 6:51pm Spoke with Dr. Hogan at [facility]. Discussed case with pt. Requests that we send pt by ambulance. Asks that pt understand that he will be transported to their [facility] ER, and will be evaluated by their own staff. Accepts pt for transfer. Pt stated to me that he is willing to go to [place], although he isnt thrilled about it. 7:32pm Pt is now accepted at [facility] in [place], [place] by Bruce Maxwell NP in [facility]. This is closer to [place] than [place]. Pt will be going to this facility instead of to [place]. Orders, Labs, Meds: Active Orders 24 hr Category Date Time Status Communication Order [RC] STAT Care 08/02/19 16:14 Active EKG Documentation Completion [RC] STAT Care 08/02/19 16:12 Active CULTURE URINE [RM] Stat Lab 08/02/19 18:45 Received Laboratory Tests 08/02/19 08/02/19 08/02/19 Range/Units 16:52 16:52 18:45 WBC 5.30 (4.0-11.0) K/uL RBC 3.79 L (4.50-5.90) M/uL Hgb 9.3 L (13.0-17.0) g/dL Hct 30.4 L (38.0-50.0) % MCV 80.2 (80.0-98.0) fL MCH 24.5 L (27.0-32.0) pg MCHC 30.6 L (31.0-37.0) g/dL RDW Std Deviation 53.6 (28.0-62.0) fl RDW Coeff of Theresa 18 H (11.0-15.0) % Plt Count 128 L (150-400) K/uL MPV 8.70 (7.40-12.00) fL Neut % (Auto) 61.6 (48.0-80.0) % Lymph % (Auto) 26.0 (16.0-40.0) % [place] % (Auto) 11.1 (0.0-15.0) % Eos % (Auto) 1.1 (0.0-7.0) % Baso % (Auto) 0.2 (0.0-1.5) % Neut # (Auto) 3.3 (1.4-5.7) K/uL Lymph # (Auto) 1.4 (0.6-2.4) K/uL [place] # (Auto) 0.6 (0.0-0.8) K/uL Eos # (Auto) 0.1 (0.0-0.7) K/uL Baso # (Auto) 0.0 (0.0-0.1) K/uL Nucleated RBC % 0.0 /100WBC Nucleated RBCs # 0 K/uL Sodium 143 (136-148) mmol/L Potassium 4.4 (3.5-5.1) mmol/L Chloride 103 (98-107) mmol/L Carbon Dioxide 29.6 (21.0-32.0) mmol/L BUN 31 H (7.0-18.0) mg/dL Creatinine 1.4 H (0.8-1.3) mg/dL Est Cr Clr Drug Dosing 39.36 mL/min Estimated GFR (MDRD) 48.5 ml/min Glucose 163 H (74-106) mg/dL Calcium 9.1 (8.5-10.1) mg/dL Magnesium 1.5 L (1.8-2.4) mg/dL Total Bilirubin 0.5 (0.2-1.0) mg/dL AST 15 (15-37) IU/L ALT 35 (14-63) IU/L Alkaline Phosphatase 157 H (46-116) U/L Total Protein 6.2 L (6.4-8.2) g/dL Albumin 3.2 L (3.4-5.0) g/dL Globulin 3.0 (2.6-4.0) g/dL Albumin/Globulin Ratio 1.1 (0.9-1.6) TSH 3rd Generation 8.57 H (0.36-3.74) uIU/mL Urine Color YELLOW Urine Appearance CLEAR Urine pH 6.0 (5.0-8.0) Ur Specific [place] 1.015 (1.001-1.035) Urine Protein NEGATIVE (NEGATIVE) mg/dL Urine Glucose (UA) NEGATIVE (NEGATIVE) mg/dL Urine Ketones NEGATIVE (NEGATIVE) mg/dL Urine Occult Blood NEGATIVE (NEGATIVE) Urine Nitrite NEGATIVE (NEGATIVE) Urine Bilirubin NEGATIVE (NEGATIVE) Urine Urobilinogen 0.2 (<2.0) EU/dL Ur Leukocyte Esterase TRACE H (NEGATIVE) Urine RBC 0-1 (0-2/HPF) Urine WBC 0-3 (0-5/HPF) Ur Epithelial Cells OCCASIONAL (NONE-FEW) Urine Bacteria RARE (NEGATIVE) Salicylates 0.4 (0-20) mg/dL Urine Opiates Screen (NEGATIVE) Ur Oxycodone Screen (NEGATIVE) Urine Methadone Screen (NEGATIVE) Acetaminophen <2.0 ug/mL Ur Barbiturates Screen (NEGATIVE) Ur Phencyclidine Scrn (NEGATIVE) Ur Amphetamine Screen (NEGATIVE) U Methamphetamines Scrn (NEGATIVE) U Benzodiazepines Scrn (NEGATIVE) U Cocaine Metab Screen (NEGATIVE) U Marijuana (THC) Screen (NEGATIVE) Ethyl Alcohol < 3.0 mg/dL 08/02/19 Range/Units 18:45 WBC (4.0-11.0) K/uL RBC (4.50-5.90) M/uL Hgb (13.0-17.0) g/dL Hct (38.0-50.0) % MCV (80.0-98.0) fL MCH (27.0-32.0) pg MCHC (31.0-37.0) g/dL RDW Std Deviation (28.0-62.0) fl RDW Coeff of Theresa (11.0-15.0) % Plt Count (150-400) K/uL MPV (7.40-12.00) fL Neut % (Auto) (48.0-80.0) % Lymph % (Auto) (16.0-40.0) % [place] % (Auto) (0.0-15.0) % Eos % (Auto) (0.0-7.0) % Baso % (Auto) (0.0-1.5) % Neut # (Auto) (1.4-5.7) K/uL Lymph # (Auto) (0.6-2.4) K/uL [place] # (Auto) (0.0-0.8) K/uL Eos # (Auto) (0.0-0.7) K/uL Baso # (Auto) (0.0-0.1) K/uL Nucleated RBC % /100WBC Nucleated RBCs # K/uL Sodium (136-148) mmol/L Potassium (3.5-5.1) mmol/L Chloride (98-107) mmol/L Carbon Dioxide (21.0-32.0) mmol/L BUN (7.0-18.0) mg/dL Creatinine (0.8-1.3) mg/dL Est Cr Clr Drug Dosing mL/min Estimated GFR (MDRD) ml/min Glucose (74-106) mg/dL Calcium (8.5-10.1) mg/dL Magnesium (1.8-2.4) mg/dL Total Bilirubin (0.2-1.0) mg/dL AST (15-37) IU/L ALT (14-63) IU/L Alkaline Phosphatase (46-116) U/L Total Protein (6.4-8.2) g/dL Albumin (3.4-5.0) g/dL Globulin (2.6-4.0) g/dL Albumin/Globulin Ratio (0.9-1.6) TSH 3rd Generation (0.36-3.74) uIU/mL Urine Color Urine Appearance Urine pH (5.0-8.0) Ur Specific [place] (1.001-1.035) Urine Protein (NEGATIVE) mg/dL Urine Glucose (UA) (NEGATIVE) mg/dL Urine Ketones (NEGATIVE) mg/dL Urine Occult Blood (NEGATIVE) Urine Nitrite (NEGATIVE) Urine Bilirubin (NEGATIVE) Urine Urobilinogen (<2.0) EU/dL Ur Leukocyte Esterase (NEGATIVE) Urine RBC (0-2/HPF) Urine WBC (0-5/HPF) Ur Epithelial Cells (NONE-FEW) Urine Bacteria (NEGATIVE) Salicylates (0-20) mg/dL Urine Opiates Screen NEGATIVE (NEGATIVE) Ur Oxycodone Screen NEGATIVE (NEGATIVE) Urine Methadone Screen NEGATIVE (NEGATIVE) Acetaminophen ug/mL Ur Barbiturates Screen NEGATIVE (NEGATIVE) Ur Phencyclidine Scrn NEGATIVE (NEGATIVE) Ur Amphetamine Screen NEGATIVE (NEGATIVE) U Methamphetamines Scrn NEGATIVE (NEGATIVE) U Benzodiazepines Scrn NEGATIVE (NEGATIVE) U Cocaine Metab Screen NEGATIVE (NEGATIVE) U Marijuana (THC) Screen NEGATIVE (NEGATIVE) Ethyl Alcohol mg/dL Departure - Departure Time of Disposition: 19:30 Disposition: DC/Tfer to Psych Hosp/Unit 65 Condition: Good Clinical Impression: Depression with suicidal ideation, Depressive disorder - Discharge Information Referrals: Harry Pacheco MD [Primary Care Provider] - Forms: ED Department Discharge Sepsis Event Note - Evaluation Sepsis Screening Result: No Definite Risk - Focused Exam Vital Signs: Vital Signs Temp Pulse Resp BP Pulse Ox 08/02/19 20:01 96.8 F L 81 18 152/59 H 99 08/02/19 19:17 96.9 F 86 148/66 H 97 08/02/19 15:54 96.9 F 89 18 141/55 H 99 Date Exam was Performed: 08/02/19 Time Exam was Performed: 20:37 - My Orders Last 24 Hours: My Active Orders 08/02/19 16:12 EKG Documentation Completion [RC] STAT 08/02/19 16:14 Communication Order [RC] STAT 08/02/19 18:45 CULTURE URINE [RM] Stat - Assessment/Plan Last 24 Hours: My Active Orders 08/02/19 16:12 EKG Documentation Completion [RC] STAT 08/02/19 16:14 Communication Order [RC] STAT 08/02/19 18:45 CULTURE URINE [RM] Stat
[2019-08-02 17:31] LABS: ACETAMINOPHEN <2.0 ug/mL; BLOOD UREA NITROGEN,BUN 31 mg/dL (7.0-18.0); CARBON DIOXIDE,CO2 29.6 mmol/L (21.0-32.0); CHLORIDE,CL 103 mmol/L (98-107); GLUCOSE RANDOM 163 mg/dL (74-106); POTASSIUM,K 4.4 mmol/L (3.5-5.1); SODIUM,NA 143 mmol/L (136-148)
[2019-08-02 20:02] VITALS: BP 152/59; PULSE 81
== END 2019-08-02 20:37 ==
LOC: MW.ED 15:21
DX: F32.9 Major depressive disorder, single episode, unspecified (principal); I48.91 Unspecified atrial fibrillation; I10 Essential (primary) hypertension; E78.00 Pure hypercholesterolemia, unspecified; E11.9 Type 2 diabetes mellitus without complications; Z86.73 Personal history of transient ischemic attack (TIA), and cerebral infarction without residual deficits; Z79.84 Long term (current) use of oral hypoglycemic drugs; Z79.899 Other long term (current) drug therapy; Z88.0 Allergy status to penicillin; Z91.09 Other allergy status, other than to drugs and biological substances; Z91.018 Allergy to other foods
CPT/HCPCS: 36415; 80053; 80305-QW; 80307; 81001; 83735; 84443; 85025; 87086; 93005; 99285; 99285-25

== ENCOUNTER 2020-03-28 08:48 | Day surgery (SDC) | payer MEDICARE ==
[~2020-03-28 08:48] MED LIST changes: -Bupivacaine 0.25%/EPINEPHrine 1:200,000 10 ML SDV ONE; +Sodium Chloride 0.9% 10 ML SDV IV PRN; +Sodium Chloride 0.9% 10 ML Syringe FLUSH PRN; +Sodium Chloride 0.9% 2.5 ML Syringe FLUSH PRN
[2020-03-28] MEDS ORDERED: fentaNYL 100 MCG/2 ML SDV ONE (09:25)
[2020-03-28] MEDS ORDERED: Propofol 200 MG/20 ML SDV ONE (09:25)
[2020-03-28] MEDS ORDERED: Lidocaine 2% 5 ML SDV ONE (09:26)
--- NOTE | 2020-03-28 09:28 | PCM.PREANE ---
Preanesthetic Assessment - Anesthesia/Transfusion/Family Hx Anesthesia History: Prior Anesthesia Without Reaction Other Type of Anesthesia Reaction Comment: Denies any known problems in the past Family History of Anesthesia Reaction: No Transfusion History: No Prior Transfusion(s) Intubation History: Unknown - Review of Systems General: No Symptoms Pulmonary: No Symptoms Cardiovascular: No Symptoms Gastrointestinal: Other (h/o multiple colon polyps last year) Other: Reports: None - Physical Assessment Height: 5 ft 8 in Weight: 75.75 kg ASA Class: 3 Mental Status: Alert & Oriented x3 Airway Class: Mallampati = 2 Dentition: Reports: Normal Dentition (grinded edges) Thyro-Mental Finger Breadths: 3 Mouth Opening Finger Breadths: 3 ROM/Head Extension: Limited/Partial Lungs: Clear to Auscultation, Normal Respiratory Effort Cardiovascular: Regular Rate, Irregular Rhythm - Allergies Allergies/Adverse Reactions: Allergies Allergy/AdvReac Type Severity Reaction Status Date / Time Penicillins Allergy Rash Verified 03/23/20 10:36 Jeruselum Artichoke Allergy Hives Uncoded 08/02/19 15:55 Leachy Nuts Allergy Hives Uncoded 08/02/19 15:55 Newton Seeds Allergy Hives Uncoded 08/02/19 15:55 - Blood Blood Available: No - Anesthesia Plan Pre-Op Medication Ordered: None - Acknowledgements Anesthesia Type Planned: MAC Pt an Appropriate Candidate for the Planned Anesthesia: Yes Alternatives and Risks of Anesthesia Discussed w Pt/Guardian: Yes Pt/Guardian Understands and Agrees with Anesthesia Plan: Yes PreAnesthesia Questionnaire HEENT History: Reports: Hard of Hearing, Impaired Vision, Macular Degeneration, Other (See Below) Other HEENT History: 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16, wears glasses, tracey hearing aids Cardiovascular History: Reports: Afib, High Cholesterol, Hypertension, MA Other Cardiovascular History: A-Fib/A-Flutter, h/o TIA's 5-6 years ago with temporary memmory loss Other Respiratory History: chronic PE right lung Gastrointestinal History: Reports: Other (See Below) Other Gastrointestinal History: hernia Genitourinary History: Reports: Prostate Disorder, Other (See Below) (chronic kidney disease) Musculoskeletal History: Reports: Other (See Below) Other Musculoskeletal History: fx fingers Neurological History: Reports: TIA, Other (See Below) Other Neuro History: unsteady gait, TIA March,-weaker on left side, also memomy and walk affected, tremor Psychiatric History: Reports: Depression Endocrine/Metabolic History: Reports: Diabetes, Type II Hematologic History: Reports: Anemia Other Hematologic History: has been off Eliquis for 3 months - Infectious Disease History Infectious Disease History: Reports: Chicken Pox, Mumps - Past Surgical History HEENT Surgical History: Reports: Cataract Surgery, Tonsillectomy GI Surgical History: Reports: Colonoscopy (last year- 3 cecal tubular adenomas and one i sigmoid colon), EGD (last year), Hernia, Inguinal Male Surgical History: Reports: Other (See Below) (prostate surgery) - SUBSTANCE USE Tobacco Use Status *Q: Former Tobacco User Tobacco Use Within Last Twelve Months: No Recreational Drug Use History: No - HOME MEDS Home Medications: Home Meds Losartan Potassium 25 mg PO DAILY 02/23/14 [History] Metoprolol Tartrate 100 mg PO BID 02/23/14 [History] atorvaSTATin Calcium [Atorvastatin Calcium] 40 mg PO BEDTIME 02/23/14 [History] metFORMIN [Glucophage] 1,000 mg PO BID 02/23/14 [History] SitaGLIPtin [Januvia] 100 mg PO DAILY 01/30/17 [History] Tamsulosin [Flomax] 0.4 mg PO PCBREAKFAST 30 Days #30 cap.er 07/29/19 [Rx] Cholecalciferol (Vitamin D3) [Vitamin D3] 2,000 unit PO DAILY 03/23/20 [History] Furosemide [Lasix] 60 mg PO QAM 03/23/20 [History] Levothyroxine 25 mcg PO QAM 03/23/20 [History] Loperamide [Imodium] 2 mg PO BEDTIME 03/23/20 [History] PEG 400/Hypromellose/Glycerin [Artificial Tears Drops] 1 drop EYEBOTH ASDIRECTED PRN 03/23/20 [History] Prednisolone Acetate/Pf [Prednisolone Acet 1% Eye Drop] 1 drop EYERT TID 03/23/20 [History] Psyllium Husk [Metamucil] 2 tbsp PO QAM 03/23/20 [History] Spironolactone [Aldactone] 25 mg PO DAILY 03/23/20 [History] - CURRENT (IN HOUSE) MEDS Current Meds: Current Medications Lactated Ringer's (Ringers, Lactated) 1,000 mls @ 125 mls/hr IV ASDIRECTED JACOB Sodium Chloride (Saline Flush) 10 ml FLUSH ASDIRECTED PRN PRN Reason: Keep Vein Open Sodium Chloride (Saline Flush) 2.5 ml FLUSH ASDIRECTED PRN PRN Reason: Keep Vein Open Sodium Chloride (Saline Flush) 10 ml FLUSH ASDIRECTED PRN PRN Reason: Keep Vein Open Sodium Chloride (Saline Flush) 2.5 ml FLUSH ASDIRECTED PRN PRN Reason: Keep Vein Open Sodium Chloride (Normal Saline) 10 ml IV ASDIRECTED PRN PRN Reason: IV Use
--- NOTE | 2020-03-28 10:21 | PCM.POSTAN ---
POST ANESTHESIA ASSESSMENT - MENTAL STATUS Mental Status: Alert, Oriented - VITAL SIGNS Vital Signs: Last Vital Signs Temp 36.4 C 03/28/20 09:30 Pulse 77 03/28/20 09:30 Resp 16 03/28/20 09:30 BP 141/65 H 03/28/20 09:30 Pulse Ox 95 03/28/20 09:30 - RESPIRATORY Respiratory Status: Respiratory Rate WNL, Airway Patent, O2 Saturation Stable - CARDIOVASCULAR CV Status: Pulse Rate WNL, Blood Pressure Stable - GASTROINTESTINAL GI Status: No Symptoms - PAIN Pain Score: 0 - POST OP HYDRATION Hydration Status: Adequate & Stable - OBSERVATIONS Free Text/Narrative:: No anesthesia problems
--- NOTE | 2020-03-28 10:53 | PCM.OPNOTE ---
- General Post-Op/Procedure Note Date of Surgery/Procedure: 03/28/20 Operative Procedure(s): Diagnostic EGD. Diagnostic colonoscopy. Findings: Gastritis, hyperplastic gastric polyp, small hiatal hernia and diverticulosis. Pre Op Diagnosis: History of gastritis. History of colonic polyps. Post-Op Diagnosis: Gastritis, hyperplastic gastric polyp, small hiatal hernia and diverticulosis. Anesthesia Technique: [facility] [place] Primary Surgeon: Shira Luong Complications: None. Condition: Stable
--- NOTE | 2020-03-28 11:32 | PCM48HPAN ---
Post Anesthesia Note - EVALUATION WITHIN 48HRS OF ANESTHETIC Vital Signs in Normal Range: Yes Patient Participated in Evaluation: Yes Respiratory Function Stable: Yes Airway Patent: Yes Cardiovascular Function Stable: Yes Hydration Status Stable: Yes Pain Control Satisfactory: Yes Nausea and Vomiting Control Satisfactory: Yes Mental Status Recovered: Yes Vital Signs: Last Vital Signs Temp 36.4 C 03/28/20 09:30 Pulse 72 03/28/20 11:07 Resp 21 H 03/28/20 11:07 BP 115/45 L 03/28/20 11:07 Pulse Ox 95 03/28/20 11:07 - COMMENTS/OBSERVATIONS Free Text/Narrative:: No anesthesia problems
[2020-03-28 12:29] VITALS: BP 148/65; PULSE 75
--- NOTE | 2020-03-28 19:00 | OR ---
SURGEON: SHIRA LUONG MD DATE OF PROCEDURE: 03/28/2020 PREOPERATIVE DIAGNOSIS: History of gastritis and colon polyps. POSTOPERATIVE DIAGNOSES: Diverticulosis, hyperplastic gastric polyp. PROCEDURES PERFORMED: Diagnostic esophagogastroduodenoscopy and colonoscopy. PRIMARY SURGEON: Shira Luong MD ANESTHESIA: MAC. INSTRUMENT USED: Olympus endoscope and colonoscope. EXTENT OF EXAM: To the second portion of duodenum, to the cecum. PREPARATION: Good. LIMITATIONS: None. INDICATIONS FOR EXAMINATION: The patient is an 84-year-old male who was hospitalized last year with a GI bleed. He had diagnostic EGD and colonoscopy at the time. He was found to have acute gastritis as well as multiple polyps throughout the colon. The decision was made to proceed with a 1-year followup colonoscopy. I explained the procedure, expected perioperative course, and the risks. The patient underwent cardiac evaluation and was cleared for the procedure. He verbalized understanding and wished to proceed. PROCEDURE IN DETAIL: The patient was brought into the endoscopy suite and placed in a beach chair position. A time-out was completed verifying the patient's name, age, date of , allergies, and procedure to be performed. Monitored anesthesia care was induced and a bite block was placed in the patient's mouth. Continuous oxygen was provided via nasal cannula throughout the procedure. After adequate sedation was achieved, a well-lubricated endoscope was placed in the patient's mouth and advanced under direct visualization to the second portion of duodenum. This appeared normal and a photograph was taken. The scope was then fully withdrawn while examining the color, texture, anatomy, and integrity of the mucosa of the upper GI tract. The duodenum was normal. The scope was brought into the stomach and a photograph was taken of the pylorus and GE junction. These grossly appeared normal. Biopsies were taken of the gastric antrum, body, and fundus and sent for histologic review and H. pylori testing. The gastric mucosa was free of inflammation or ulceration, but there were a couple of scattered hyperplastic polyps in the gastric body. The scope was brought into the distal esophagus and a photograph was taken of the Z-line. This appeared normal. The remainder of the esophageal mucosa appeared normal. The scope was removed and this portion of procedure terminated. The patient was then placed in a left lateral decubitus position. Digital rectal exam was performed. This exam was within normal limits. A well-lubricated colonoscope was inserted in the rectum and advanced under direct visualization to the level of the cecum. The cecum was identified by both visual and anatomic landmarks. A photograph was taken of the cecal cap; however, I was unable to retroflex the scope within the cecum due to looping of the scope more proximally. The scope was then fully withdrawn while examining the color, texture, anatomy, and integrity of the mucosa from the cecum to the anal canal. The findings were consistent with normal colonic mucosa other than scattered diverticula throughout the sigmoid colon. The scope was brought into the rectum and retroflexed to allow visualization of the anal canal opening. This appeared normal and a photograph was taken. The scope was then straightened out and fully withdrawn. The cecum to anus time was 6 minutes. The patient tolerated the procedure well and was transferred to the PACU in stable condition. ENDOSCOPIC DIAGNOSIS: Diverticulosis. RECOMMENDATIONS: Follow up in clinic in 2 weeks. PACHECO MCKEON /[id number]
== END 2020-03-28 11:55 | disposition home or self-care (01) ==
LOC: MW.SDS 08:48
PROVIDERS: ATTEND Surgery
DX: K57.30 Diverticulosis of large intestine without perforation or abscess without bleeding (principal); K31.7 Polyp of stomach and duodenum; I48.91 Unspecified atrial fibrillation; I48.92 Unspecified atrial flutter; E11.9 Type 2 diabetes mellitus without complications; I25.2 Old myocardial infarction; I10 Essential (primary) hypertension; E78.00 Pure hypercholesterolemia, unspecified; Z86.73 Personal history of transient ischemic attack (TIA), and cerebral infarction without residual deficits; Z88.0 Allergy status to penicillin; Z79.899 Other long term (current) drug therapy; Z79.01 Long term (current) use of anticoagulants; Z87.891 Personal history of nicotine dependence; Z86.010 Personal history of colon polyps; Z91.018 Allergy to other foods; Z79.84 Long term (current) use of oral hypoglycemic drugs; Z91.02 Food additives allergy status
CPT/HCPCS: 43239; 45378; 82962; 88305; 88312; J2001; J2704; J3010; J7120

== ENCOUNTER 2020-12-05 13:37 | Inpatient (IN) | payer MEDICARE ==
--- NOTE | 2020-12-05 13:47 | PCM.EKG ---
#1 Interpretation EKG Date: 12/05/20 Time: 13:40 Rhythm: A-Fib Rate (Beats/Min): 123 ST-T: Normal
[2020-12-05] MEDS ORDERED: Sodium Chloride 0.9% 2.5 ML Syringe FLUSH PRN (13:53)
[2020-12-05] MEDS ORDERED: Sodium Chloride 0.9% 10 ML Syringe FLUSH PRN (13:53)
[2020-12-05] MEDS ORDERED: Sodium Chloride 0.9% 1,000 ML IV ONE (13:53)
--- NOTE | 2020-12-05 14:04 | PCM.EKG ---
#2 Interpretation EKG Date: 12/05/20 Time: 13:46 Rhythm: A-Flutter Rate (Beats/Min): 120 [place]: Normal ST-T: Normal
[2020-12-05] MEDS ORDERED: Aspirin 81 MG Tab.Chew PO ONE (14:14)
[2020-12-05 14:37] LABS: BLOOD UREA NITROGEN,BUN 36 mg/dL (7.0-18.0); CARBON DIOXIDE,CO2 25.4 mmol/L (21.0-32.0); CHLORIDE,CL 96 mmol/L (98-107); GLUCOSE RANDOM 280 mg/dL (74-106); LIPASE 81 U/L (73-393); POTASSIUM,K 3.7 mmol/L (3.5-5.1); SODIUM,NA 135 mmol/L (136-148)
--- NOTE | 2020-12-05 14:40 | EDM.PDOC ---
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 Patient reports that yesterday evening the symptoms began but he did not think he needed to go to the hospital. Patient reports that this morning he was trying to get into a vehicle and felt that his weakness where when he stands up he feels unable to stand for long before needing to sit due to fatigue / tiredness. Patient states that his chest feels heavy since this morning. Patient has taken 1 baby aspirin this morning. Patient denies fever, chills, shortness of breath, or cough. Denies headache, neck stiff ness, change in vision, syncope, or near syncope. Denies nausea, vomiting, abdominal pain, diarrhea, constipation, or dysuria. Has not noted any blood in urine or stool. Patient has been eating and drinking appropriately. Review of systems: As per history of present illness and below otherwise all systems reviewed and negative. Past medical history: As per history of present illness and as reviewed below otherwise noncontributory. Surgical history: As per history of present illness and as reviewed below otherwise noncontributory. Social history: See social history for further information Family history: As per history of present illness and as reviewed below otherwise noncontributory. Physical exam: General: Patient is alert, oriented, and in no acute distress. Patient sitting comfortably on exam table. Patient is noted to be tachycardic between 120 and 130 bpm but is otherwise vitally stable. HEENT: Atraumatic, normocephalic, pupil reactive, left eye removed, negative for conjunctival pallor or scleral icterus, mucous membranes moist, TMs normal bilaterally, throat clear, neck supple, nontender, trachea midline. No drooling or trismus noted. No meningeal signs. No hot potato voice noted. Lungs: Clear to auscultation, breath sounds equal bilaterally, chest nontender. Heart: Patient is tachycardic at 120 to 130 bpm, S1S2, regular rhythm without overt murmur Abdomen: Soft, nondistended, nontender. Negative for masses or hepatosplenomegaly. Negative for costovertebral tenderness. Pelvis: Stable nontender. Genitourinary: Deferred. Rectal: Deferred. Skin: Intact, warm, dry. No lesions or rashes noted. Extremities: Atraumatic, negative for cords or calf pain. Neurovascular unremarkable. Neuro: Awake, alert, oriented. Cranial nerves II through XII unremarkable. Cerebellum unremarkable. Motor and sensory unremarkable throughout. Exam nonfocal. Notes: Patient is an 85-year-old male who presents emergency department secondary to 1 day history of weakness and chest heaviness this AM. Upon arrival to the ED, patient is lying comfortably on the exam table and is in no acute distress. Patient is noted to be tachycardic at 120 to 130 bpm, otherwise vitally stable and reviewed by me. No focal neuro deficits noted and leg strength equal bilaterally and patient is able to stand up from wheelchair and ambulate to bed without difficulty. Will obtain cardiac evaluation at this time. See Dr. Gant's dictation for specific EKG interpretation. However, atrial fibrillation with a rate of [address] to T segments. Repeat EKG shows atrial flutter with a rate of [address] to T segments. CBC shows a red blood cell count of 4.07, otherwise, mild derangements of CBC unremarkable. CMP shows a mildly low sodium at 135, chloride of 96, creatinine is elevated at 3 and BUN of 36 (creat 2.9 on 08/03/20 and BUN 36) appearing chronic elevation today. Glucose is elevated at 280. Alk phos elevated at 148. Otherwise mild derangements of CMP unremarkable. Lipase is within normal limits. Troponin is negative. Unable to obtain Ang CT chest for PE, given tachycardia and mild hypoxia, due to patient's kidney function/GFR of 20. Will obtain venous Doppler ultrasound bilaterally of the legs and obtain ddimer. Upon reevaluation of patient, his heart rate is improved to 90 bpm and oxygen 94%. Patient is breathing comfortably and remains well and vitally stable on exam. After having 500 mL of normal saline patient's heart rate is noted to be 90bmp without further intervention. Ddimer is elevated 1.7 however corrected for age which reported D-dimer is less than or equal to value, consider alternative diagnosis. Bilateral lower extremity Doppler ultrasound shows normal bilateral lower extremity venous ultrasound with no sign of DVT. BNP is mildly elevated at 122, in comparison to past lab work, this is drastically improved as past BNP is 3359 on recent lab work. HEART score moderate risk. CXR with lateral view shows elevated left hemidiaphragm. There is atelectasis or infiltrate in the left lung base. No vascular calcifications. No acute osseous abnormality. I did call and speak to the hospitalist on-call, Dr. Valdez, and thoroughly discussed patient's case. Will admit to observation on telemetry. Voices understanding and is agreeable to plan of care. Denies any further questions or concerns at this time. Diagnostics: CBC, CMP, chest x-ray 2v, D-dimer, EKG, venous ultrasound of legs bilateral, BNP, COVID19 Therapeutics: NS, ASA, Rocephin Impression: Community Acquired Pneumonia Chest pain Weakness Chronic kidney disease Type 2 Diabetes Mellitus with hyperglycemia Plan: Admit to observation telemetry to Dr. Jose Definitive disposition and diagnosis as appropriate pending reevaluation and review of above. chest pressure Pain Score (Numeric/FACES): 4 - Related Data Allergies Allergy/AdvReac Type Severity Reaction Status Date / Time Penicillins Allergy Rash Verified 12/05/20 13:54 Jeruselum Artichoke Allergy Hives Uncoded 12/05/20 13:54 Leachy Nuts Allergy Hives Uncoded 12/05/20 13:54 Evangeline Seeds Allergy Hives Uncoded 12/05/20 13:54 Home Meds: Home Meds Losartan Potassium 25 mg PO DAILY 02/23/14 [History] Metoprolol Tartrate 100 mg PO BID 02/23/14 [History] atorvaSTATin Calcium [Atorvastatin Calcium] 40 mg PO BEDTIME 02/23/14 [History] metFORMIN [Glucophage] 1,000 mg PO BID 02/23/14 [History] SitaGLIPtin [Januvia] 100 mg PO DAILY 01/30/17 [History] Tamsulosin [Flomax] 0.4 mg PO PCBREAKFAST 30 Days #30 cap.er 07/29/19 [Rx] Cholecalciferol (Vitamin D3) [Vitamin D3] 2,000 unit PO DAILY 03/23/20 [History] Furosemide [Lasix] 60 mg PO QAM 03/23/20 [History] Levothyroxine 25 mcg PO QAM 03/23/20 [History] Loperamide [Imodium] 2 mg PO BEDTIME 03/23/20 [History] PEG 400/Hypromellose/Glycerin [Artificial Tears Drops] 1 drop EYEBOTH ASDIRECTED PRN 03/23/20 [History] Prednisolone Acetate/Pf [Prednisolone Acet 1% Eye Drop] 1 drop EYERT TID 03/23/20 [History] Psyllium Husk [Metamucil] 2 tbsp PO QAM 03/23/20 [History] Spironolactone [Aldactone] 25 mg PO DAILY 03/23/20 [History] Past Medical History HEENT History: Reports: Hard of Hearing, Impaired Vision, Macular Degeneration, Other (See Below) Other HEENT History: 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16, wears glasses, tracey hearing aids Cardiovascular History: Reports: Afib, High Cholesterol, Hypertension, [place] Other Cardiovascular History: A-Fib/A-Flutter, h/o TIA's 5-6 years ago with temporary memmory loss Respiratory History: Reports: None Other Respiratory History: chronic PE right lung Gastrointestinal History: Reports: Other (See Below) Other Gastrointestinal History: hernia Genitourinary History: Reports: Prostate Disorder, Other (See Below) Musculoskeletal History: Reports: Other (See Below) Other Musculoskeletal History: fx fingers Neurological History: Reports: TIA, Other (See Below) Other Neuro History: unsteady gait, TIA March,-weaker on left side, also memomy and walk affected, tremor Psychiatric History: Reports: Depression Endocrine/Metabolic History: Reports: Diabetes, Type II Hematologic History: Reports: Anemia Other Hematologic History: has been off Eliquis for 3 months - Infectious Disease History Infectious Disease History: Reports: Chicken Pox, Mumps - Past Surgical History HEENT Surgical History: Reports: Cataract Surgery, Tonsillectomy Other HEENT Surgeries/Procedures: prostetic left eye, 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, GI Surgical History: Reports: Hernia, Inguinal Other GI Surgeries/Procedures: inguinal hernia repair x2 Male Surgical History: Reports: Other (See Below) Social & Family History - Family History Family Medical History: No Pertinent Family History Cardiac: Reports: Hypertension, [place] - Tobacco Use Tobacco Use Status *Q: Never Tobacco User - Caffeine Use Caffeine Use: Reports: Coffee - Recreational Drug Use Recreational Drug Use: No ED ROS GENERAL - Review of Systems Review Of Systems: Comprehensive ROS is negative, except as noted in HPI. ED EXAM, GENERAL - Physical Exam Exam: See Below (see dictation) Course - Vital Signs Last Recorded V/S: Last Vital Signs Temp 98 F 12/05/20 13:50 Pulse 92 12/05/20 17:50 Resp 16 12/05/20 17:50 BP 118/47 L 12/05/20 17:50 Pulse Ox 93 L 12/05/20 17:50 - Orders/Labs/Meds Orders: Active Orders 24 hr Category Date Time Status Cardiac Monitoring [RC] . DIRECTED Care 12/05/20 13:53 Active EKG Documentation Completion [RC] STAT Care 12/05/20 13:53 Active EKG Documentation Completion [RC] STAT Care 12/05/20 17:13 Active COVID-19/FLU A+B [MOLEC] Stat Lab 12/05/20 16:00 Received Sodium Chloride 0.9% [Saline Flush] Med 12/05/20 13:53 Active 10 ml FLUSH ASDIRECTED PRN Sodium Chloride 0.9% [Saline Flush] Med 12/05/20 13:53 Active 2.5 ml FLUSH ASDIRECTED PRN Saline Lock Insert [OM.PC] Stat Oth 12/05/20 13:53 Ordered Medication Orders Acetaminophen (Acetaminophen 325 Mg Tab) 650 mg PO Q4H PRN PRN Reason: Pain (Mild 1-3)/fever Albuterol/Ipratropium (Albuterol/Ipratropium 3.0-0.5 Mg/3 Ml Neb Soln) 3 ml NEB Q4HRRT PRN PRN Reason: Shortness Of Breath/wheezing Enoxaparin Sodium (Enoxaparin 40 Mg/0.4 Ml Syringe) 40 mg SUBCUT Q24H JACOB Lactated Ringer's (Ringers, Lactated) 1,000 mls @ 125 mls/hr IV ASDIRECTED JACOB Levofloxacin/Dextrose 750 mg/ (Premix) 150 mls @ 100 mls/hr IV ONETIME ONE Stop: 12/05/20 20:29 Ondansetron HCl (Ondansetron 4 Mg/2 Ml Sdv) 4 mg IVPUSH Q4H PRN PRN Reason: Nausea/Vomiting Sodium Chloride (Sodium Chloride 0.9% 2.5 Ml Syringe) 2.5 ml FLUSH ASDIRECTED PRN PRN Reason: Keep Vein Open Last Admin: 12/05/20 14:00 Dose: 2.5 ml Documented by: DEDRA Sodium Chloride (Sodium Chloride 0.9% 10 Ml Syringe) 10 ml FLUSH ASDIRECTED PRN PRN Reason: Keep Vein Open Last Admin: 12/05/20 14:00 Dose: 10 ml Documented by: DEDRA Labs: Laboratory Tests 12/05/20 12/05/20 12/05/20 Range/Units 13:49 13:49 13:49 WBC 7.95 (4.0-11.0) K/uL RBC 4.07 L (4.50-5.90) M/uL Hgb 13.1 (13.0-17.0) g/dL Hct 39.6 (38.0-50.0) % MCV 97.3 (80.0-98.0) fL MCH 32.2 H (27.0-32.0) pg MCHC 33.1 (31.0-37.0) g/dL RDW Std Deviation 53.2 (28.0-62.0) fl RDW Coeff of Theresa 15 (11.0-15.0) % Plt Count 194 (150-400) K/uL MPV 9.50 (7.40-12.00) fL Neut % (Auto) 77.3 (48.0-80.0) % Lymph % (Auto) 15.0 L (16.0-40.0) % [place] % (Auto) 6.5 (0.0-15.0) % Eos % (Auto) 1.1 (0.0-7.0) % Baso % (Auto) 0.1 (0.0-1.5) % Neut # (Auto) 6.1 H (1.4-5.7) K/uL Lymph # (Auto) 1.2 (0.6-2.4) K/uL [place] # (Auto) 0.5 (0.0-0.8) K/uL Eos # (Auto) 0.1 (0.0-0.7) K/uL Baso # (Auto) 0.0 (0.0-0.1) K/uL Nucleated RBC % 0.0 /100WBC Nucleated RBCs # 0 K/uL D-Dimer, Quantitative (0.0-0.50) mg/L FEU Sodium 135 L (136-148) mmol/L Potassium 3.7 (3.5-5.1) mmol/L Chloride 96 L (98-107) mmol/L Carbon Dioxide 25.4 (21.0-32.0) mmol/L BUN 36 H (7.0-18.0) mg/dL Creatinine 3.0 H (0.8-1.3) mg/dL Est Cr Clr Drug Dosing 18.33 mL/min Estimated GFR (MDRD) 20.0 ml/min Glucose 280 H (74-106) mg/dL Calcium 8.9 (8.5-10.1) mg/dL Total Bilirubin 0.6 (0.2-1.0) mg/dL AST 14 L (15-37) IU/L ALT 17 (14-63) IU/L Alkaline Phosphatase 148 H (46-116) U/L Troponin I < 0.050 (0.000-0.056) ng/mL B-Natriuretic Peptide 122 H (<100) PG/ML Total Protein 7.1 (6.4-8.2) g/dL Albumin 3.2 L (3.4-5.0) g/dL Globulin 3.9 (2.6-4.0) g/dL Albumin/Globulin Ratio 0.8 L (0.9-1.6) Lipase 81 (73-393) U/L 12/05/20 Range/Units 14:52 WBC (4.0-11.0) K/uL RBC (4.50-5.90) M/uL Hgb (13.0-17.0) g/dL Hct (38.0-50.0) % MCV (80.0-98.0) fL MCH (27.0-32.0) pg MCHC (31.0-37.0) g/dL RDW Std Deviation (28.0-62.0) fl RDW Coeff of Theresa (11.0-15.0) % Plt Count (150-400) K/uL MPV (7.40-12.00) fL Neut % (Auto) (48.0-80.0) % Lymph % (Auto) (16.0-40.0) % [place] % (Auto) (0.0-15.0) % Eos % (Auto) (0.0-7.0) % Baso % (Auto) (0.0-1.5) % Neut # (Auto) (1.4-5.7) K/uL Lymph # (Auto) (0.6-2.4) K/uL [place] # (Auto) (0.0-0.8) K/uL Eos # (Auto) (0.0-0.7) K/uL Baso # (Auto) (0.0-0.1) K/uL Nucleated RBC % /100WBC Nucleated RBCs # K/uL D-Dimer, Quantitative 1.70 H (0.0-0.50) mg/L FEU Sodium (136-148) mmol/L Potassium (3.5-5.1) mmol/L Chloride (98-107) mmol/L Carbon Dioxide (21.0-32.0) mmol/L BUN (7.0-18.0) mg/dL Creatinine (0.8-1.3) mg/dL Est Cr Clr Drug Dosing mL/min Estimated GFR (MDRD) ml/min Glucose (74-106) mg/dL Calcium (8.5-10.1) mg/dL Total Bilirubin (0.2-1.0) mg/dL AST (15-37) IU/L ALT (14-63) IU/L Alkaline Phosphatase (46-116) U/L Troponin I (0.000-0.056) ng/mL B-Natriuretic Peptide (<100) PG/ML Total Protein (6.4-8.2) g/dL Albumin (3.4-5.0) g/dL Globulin (2.6-4.0) g/dL Albumin/Globulin Ratio (0.9-1.6) Lipase (73-393) U/L Meds: Medications Generic Name Dose Route Start Last Admin Trade Name Freq PRN Reason Stop Dose Admin Acetaminophen 650 mg 12/05/20 18:56 Acetaminophen 325 Mg Tab PO Q4H PRN Pain (Mild 1-3)/fever Albuterol/Ipratropium 3 ml 12/05/20 18:56 Albuterol/Ipratropium 3.0-0.5 Mg/3 Ml Neb Soln NEB Q4HRRT PRN Shortness Of Breath/wheezing Enoxaparin Sodium 40 mg 12/05/20 19:00 Enoxaparin 40 Mg/0.4 Ml Syringe SUBCUT Q24H JACOB Lactated Ringer's 1,000 mls @ 125 mls/hr 12/05/20 19:00 Ringers, Lactated IV ASDIRECTED JACOB Levofloxacin/Dextrose 750 mg/ 150 mls @ 100 mls/hr 12/05/20 19:00 Premix IV 12/05/20 20:29 ONETIME ONE Ondansetron HCl 4 mg 12/05/20 18:56 Ondansetron 4 Mg/2 Ml Sdv IVPUSH Q4H PRN Nausea/Vomiting Sodium Chloride 2.5 ml 12/05/20 13:53 12/05/20 14:00 Sodium Chloride 0.9% 2.5 Ml Syringe FLUSH 2.5 ml ASDIRECTED PRN Administration Keep Vein Open Sodium Chloride 10 ml 12/05/20 13:53 12/05/20 14:00 Sodium Chloride 0.9% 10 Ml Syringe FLUSH 10 ml ASDIRECTED PRN Administration Keep Vein Open Discontinued Medications Generic Name Dose Route Start Last Admin Trade Name Freq PRN Reason Stop Dose Admin Aspirin 243 mg 12/05/20 14:14 12/05/20 14:49 Aspirin 81 Mg Tab.Chew PO 12/05/20 14:15 243 mg ONETIME ONE Administration Sodium Chloride 1,000 mls @ 999 mls/hr 12/05/20 13:53 12/05/20 14:00 Normal Saline IV 12/05/20 14:53 999 mls/hr STAT ONE Administration Ceftriaxone Sodium/Dextrose 1 50 mls @ 100 mls/hr 12/05/20 17:14 12/05/20 17:39 gm/ Premix IV 12/05/20 17:43 100 mls/hr ONETIME ONE Administration Departure - Departure Time of Disposition: 18:03 Disposition: Refer to Observation Clinical Impression: Hyperglycemia, Weakness Community acquired pneumonia Qualifiers: Laterality: left Lung location: lower lobe of lung Qualified Code(s): J18.9 - Pneumonia, unspecified organism Chest pain Qualifiers: Chest pain type: unspecified Qualified Code(s): R07.9 - Chest pain, unspecified Chronic kidney disease Qualifiers: Chronic kidney disease stage: unspecified stage Qualified Code(s): N18.9 - Chronic kidney disease, unspecified - Discharge Information Sepsis Event Note (ED) - Evaluation Sepsis Screening Result: No Definite Risk - Focused Exam Vital Signs: Vital Signs Temp Pulse BP Pulse Ox 12/05/20 17:14 123 H 122/57 L 93 L 12/05/20 16:44 110 H 125/51 L 94 L 12/05/20 16:14 109 H 124/55 L 92 L 12/05/20 13:50 98 F 134 H 128/56 L 93 L - My Orders Last 24 Hours: My Active Orders 12/05/20 13:53 Cardiac Monitoring [RC] . DIRECTED EKG Documentation Completion [RC] STAT Sodium Chloride 0.9% [Saline Flush] 10 ml FLUSH ASDIRECTED PRN Sodium Chloride 0.9% [Saline Flush] 2.5 ml FLUSH ASDIRECTED PRN Saline Lock Insert [OM.PC] Stat 12/05/20 16:00 COVID-19/FLU A+B [MOLEC] Stat 12/05/20 17:13 EKG Documentation Completion [RC] STAT - Assessment/Plan Last 24 Hours: My Active Orders 12/05/20 13:53 Cardiac Monitoring [RC] . DIRECTED EKG Documentation Completion [RC] STAT Sodium Chloride 0.9% [Saline Flush] 10 ml FLUSH ASDIRECTED PRN Sodium Chloride 0.9% [Saline Flush] 2.5 ml FLUSH ASDIRECTED PRN Saline Lock Insert [OM.PC] Stat 12/05/20 16:00 COVID-19/FLU A+B [MOLEC] Stat 12/05/20 17:13 EKG Documentation Completion [RC] STAT
--- NOTE | 2020-12-05 15:24 | CR ---
INDICATION: Chest pain TECHNIQUE: Chest 1 view. COMPARISON: None FINDINGS: Cardiovascular and mediastinum: Heart size and vasculature are normal in caliber and appearance. Mediastinum is within normal limits. Lungs and pleural space: Retrocardiac opacity cannot be excluded. No sign of pleural effusion. No pneumothorax. Bones and soft tissues: No significant findings. IMPRESSION: Retrocardiac opacity cannot be excluded. Lateral view may be helpful to further characterize. Dictated by Obdulio Fong MD @ 12/05/2020 3:22:[address] Obdulio Fong @ Dec 05 2020 3:22PM
--- NOTE | 2020-12-05 15:55 | US ---
INDICATION: concern for dvt, hypoxia and sob TECHNIQUE: Ultrasound venous duplex lower extremity bilateral. Compression venous exam was performed using nieves scale, color Doppler, and spectral Doppler imaging. COMPARISON: None. FINDINGS: Sonographic imaging demonstrates the common femoral, deep femoral, superficial femoral, popliteal, posterior tibial and greater saphenous veins to be fully compressible with normal color Doppler blood flow in both lower extremities. IMPRESSION: Normal bilateral lower extremity venous ultrasound, no sign of deep venous thrombosis. Dictated by: Obdulio Fong MD @ 12/05/2020 15:53:37 (Electronically Signed)
--- NOTE | 2020-12-05 16:45 | CR ---
Indication: Possible retrocardiac opacity on frontal chest radiograph Technique: Chest lateral view Comparison: Frontal chest radiograph from same date Findings/Impression: Single lateral view demonstrates an elevated left hemidiaphragm. There is atelectasis or infiltrate at the left lung base. Correlate with presence fever or leukocytosis. There are vascular calcifications. No acute osseous abnormality. Dictated by Hilda Solano MD @ 12/05/2020 4:44:[address] Hilda Solano @ Dec 05 2020 4:44PM
[2020-12-05 16:54] LABS: CORONAVIRUS COVID-19 NAA NEGATIVE (NEGATIVE); INFLUENZA A NAA NEGATIVE (NEGATIVE); INFLUENZA B NAA NEGATIVE (NEGATIVE)
[2020-12-05] MEDS ORDERED: cefTRIAXone 1 GM in Premix Bag 1 BAG IV ONE (17:14)
[2020-12-05] MEDS ORDERED: Ondansetron 4 MG/2 ML SDV IVPUSH PRN (18:56)
[2020-12-05] MEDS ORDERED: Levofloxacin/Dextrose 5%-Water 750 MG in Premix Bag 1 BAG IV ONE (19:00)
[2020-12-05] MEDS ORDERED: 50% Dextrose in Water 50 ML Syringe IVPUSH PRN (19:06)
[2020-12-05] MEDS ORDERED: Glucagon,Human Recombinant 1 MG Vial IM PRN (19:06)
--- NOTE | 2020-12-05 19:12 | PCM.HP.2 ---
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 Patient reports that yesterday evening the symptoms began but he did not think he needed to go to the hospital as the symptoms were not as severe. Patient reports that this morning he was trying to get into a vehicle he felt very tired and fatigued and was not able to stand up for long duration of time. Patient states that he has some ongoing cough for last few days also states that he might not be drinking and eating as much for the past few days. Patient states that his chest feels heavy since this morning. Patient has taken 1 baby aspirin this morning. Patient denies fever, chills, headache, neck stiff ness, change in vision, syncope, or near syncope. Denies nausea, vomiting, abdominal pain, diarrhea, constipation, or dysuria. Has not noted any blood in urine or stool. In the ER patient was found to be in A. fib/a flutter with heart rate in 140s. Patient received some IV fluid hydration which helped improving his heart rate. Troponin was negative, EKG was unremarkable for any acute ischemic findings. Chest x-ray was significant for possible community-acquired pneumonia. Patient was admitted for further management chest pressure Pain Score (Numeric/FACES): 4 - Related Data Allergies/Adverse Reactions: Allergies Allergy/AdvReac Type Severity Reaction Status Date / Time Penicillins Allergy Rash Verified 12/05/20 19:31 Jeruselum Artichoke Allergy Hives Uncoded 12/05/20 13:54 Leachy Nuts Allergy Hives Uncoded 12/05/20 13:54 Warrick Seeds Allergy Hives Uncoded 12/05/20 13:54 Home Medications: Home Meds Losartan Potassium 25 mg PO DAILY 02/23/14 [History] Metoprolol Tartrate 100 mg PO BID 02/23/14 [History] atorvaSTATin Calcium [Atorvastatin Calcium] 40 mg PO BEDTIME 02/23/14 [History] metFORMIN [Glucophage] 1,000 mg PO BID 02/23/14 [History] SitaGLIPtin [Januvia] 100 mg PO DAILY 01/30/17 [History] Tamsulosin [Flomax] 0.4 mg PO PCBREAKFAST 30 Days #30 cap.er 07/29/19 [Rx] Cholecalciferol (Vitamin D3) [Vitamin D3] 2,000 unit PO DAILY 03/23/20 [History] Furosemide [Lasix] 60 mg PO QAM 03/23/20 [History] Levothyroxine 25 mcg PO QAM 03/23/20 [History] Loperamide [Imodium] 2 mg PO BEDTIME 03/23/20 [History] PEG 400/Hypromellose/Glycerin [Artificial Tears Drops] 1 drop EYEBOTH ASDIRECTED PRN 03/23/20 [History] Prednisolone Acetate/Pf [Prednisolone Acet 1% Eye Drop] 1 drop EYERT TID 03/23/20 [History] Psyllium Husk [Metamucil] 2 tbsp PO QAM 03/23/20 [History] Spironolactone [Aldactone] 25 mg PO DAILY 03/23/20 [History] Past Medical History HEENT History: Reports: Hard of Hearing, Impaired Vision, Macular Degeneration, Other (See Below) Other HEENT History: 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16, wears glasses, tracey hearing aids Cardiovascular History: Reports: Afib, High Cholesterol, Hypertension, ID Other Cardiovascular History: A-Fib/A-Flutter, h/o TIA's 5-6 years ago with temporary memmory loss Respiratory History: Reports: None Other Respiratory History: chronic PE right lung Gastrointestinal History: Reports: Other (See Below) Other Gastrointestinal History: hernia Genitourinary History: Reports: Prostate Disorder, Other (See Below) Musculoskeletal History: Reports: Other (See Below) Other Musculoskeletal History: fx fingers Neurological History: Reports: TIA, Other (See Below) Other Neuro History: unsteady gait, TIA March,-weaker on left side, also memomy and walk affected, tremor Psychiatric History: Reports: Depression Endocrine/Metabolic History: Reports: Diabetes, Type II Hematologic History: Reports: Anemia Other Hematologic History: has been off Eliquis for 3 months - Infectious Disease History Infectious Disease History: Reports: Chicken Pox, Mumps - Past Surgical History HEENT Surgical History: Reports: Cataract Surgery, Tonsillectomy Other HEENT Surgeries/Procedures: prostetic left eye, 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, GI Surgical History: Reports: Hernia, Inguinal Other GI Surgeries/Procedures: inguinal hernia repair x2 Male Surgical History: Reports: Other (See Below) Social & Family History - Family History Family Medical History: No Pertinent Family History Cardiac: Reports: Hypertension, ID - Tobacco Use Tobacco Use Status *Q: Never Tobacco User - Caffeine Use Caffeine Use: Reports: Coffee - Recreational Drug Use Recreational Drug Use: No H&P Review of Systems - Review of Systems: Review Of Systems: See Below General: Reports: Malaise, Weakness, Fatigue, Decreased Appetite. Denies: Fe faustino, Chills HEENT: Denies: Dysphasia, Ear Pain Pulmonary: Reports: Shortness of Breath, Cough. Denies: Wheezing, Pleuritic Chest Pain, Sputum, Hemoptysis Cardiovascular: Reports: Dyspnea on Exertion. Denies: Chest Pain, Palpitations, Edema, Lightheadedness, Syncope Gastrointestinal: Denies: Abdominal Pain, Anorexia, Black Stool, Hematemesis, Hematochezia Genitourinary: Denies: Dysuria, Frequency, Burning, Pain Musculoskeletal: Denies: Neck Pain, Shoulder Pain, Arm Pain Skin: Denies: Cyanosis, Jaundice, Mottled Psychiatric: Denies: Confusion, Depression, Mood Lability Exam - Exam Exam: See Below - Vital Signs Vital Signs: Last Vital Signs Temp 36.6 C 12/05/20 13:50 Pulse 92 12/05/20 17:50 Resp 16 12/05/20 17:50 BP 118/47 L 12/05/20 17:50 Pulse Ox 93 L 12/05/20 17:50 Weight: 86.636 kg - Exam General: Alert, Oriented Neck: Supple Lungs: Normal Respiratory Effort, Decreased Breath Sounds Cardiovascular: Irregular Rhythm, Tachycardia GI/Abdominal Exam: Normal Bowel Sounds, Soft, Non-Tender Extremities: Normal Inspection, Normal Range of Motion, Non-Tender - Patient Data Lab Results Last 24 hrs: Laboratory Results - last 24 hr 12/05/20 12/05/20 12/05/20 Range/Units 13:49 13:49 13:49 WBC 7.95 (4.0-11.0) K/uL RBC 4.07 L (4.50-5.90) M/uL Hgb 13.1 (13.0-17.0) g/dL Hct 39.6 (38.0-50.0) % MCV 97.3 (80.0-98.0) fL MCH 32.2 H (27.0-32.0) pg MCHC 33.1 (31.0-37.0) g/dL RDW Std Deviation 53.2 (28.0-62.0) fl RDW Coeff of Theresa 15 (11.0-15.0) % Plt Count 194 (150-400) K/uL MPV 9.50 (7.40-12.00) fL Neut % (Auto) 77.3 (48.0-80.0) % Lymph % (Auto) 15.0 L (16.0-40.0) % [place] % (Auto) 6.5 (0.0-15.0) % Eos % (Auto) 1.1 (0.0-7.0) % Baso % (Auto) 0.1 (0.0-1.5) % Neut # (Auto) 6.1 H (1.4-5.7) K/uL Lymph # (Auto) 1.2 (0.6-2.4) K/uL [place] # (Auto) 0.5 (0.0-0.8) K/uL Eos # (Auto) 0.1 (0.0-0.7) K/uL Baso # (Auto) 0.0 (0.0-0.1) K/uL Nucleated RBC % 0.0 /100WBC Nucleated RBCs # 0 K/uL D-Dimer, Quantitative (0.0-0.50) mg/L FEU Sodium 135 L (136-148) mmol/L Potassium 3.7 (3.5-5.1) mmol/L Chloride 96 L (98-107) mmol/L Carbon Dioxide 25.4 (21.0-32.0) mmol/L BUN 36 H (7.0-18.0) mg/dL Creatinine 3.0 H (0.8-1.3) mg/dL Est Cr Clr Drug Dosing 18.33 mL/min Estimated GFR (MDRD) 20.0 ml/min Glucose 280 H (74-106) mg/dL Calcium 8.9 (8.5-10.1) mg/dL Total Bilirubin 0.6 (0.2-1.0) mg/dL AST 14 L (15-37) IU/L ALT 17 (14-63) IU/L Alkaline Phosphatase 148 H (46-116) U/L Troponin I < 0.050 (0.000-0.056) ng/mL B-Natriuretic Peptide 122 H (<100) PG/ML Total Protein 7.1 (6.4-8.2) g/dL Albumin 3.2 L (3.4-5.0) g/dL Globulin 3.9 (2.6-4.0) g/dL Albumin/Globulin Ratio 0.8 L (0.9-1.6) Lipase 81 (73-393) U/L 12/05/20 Range/Units 14:52 WBC (4.0-11.0) K/uL RBC (4.50-5.90) M/uL Hgb (13.0-17.0) g/dL Hct (38.0-50.0) % MCV (80.0-98.0) fL MCH (27.0-32.0) pg MCHC (31.0-37.0) g/dL RDW Std Deviation (28.0-62.0) fl RDW Coeff of Theresa (11.0-15.0) % Plt Count (150-400) K/uL MPV (7.40-12.00) fL Neut % (Auto) (48.0-80.0) % Lymph % (Auto) (16.0-40.0) % [place] % (Auto) (0.0-15.0) % Eos % (Auto) (0.0-7.0) % Baso % (Auto) (0.0-1.5) % Neut # (Auto) (1.4-5.7) K/uL Lymph # (Auto) (0.6-2.4) K/uL [place] # (Auto) (0.0-0.8) K/uL Eos # (Auto) (0.0-0.7) K/uL Baso # (Auto) (0.0-0.1) K/uL Nucleated RBC % /100WBC Nucleated RBCs # K/uL D-Dimer, Quantitative 1.70 H (0.0-0.50) mg/L FEU Sodium (136-148) mmol/L Potassium (3.5-5.1) mmol/L Chloride (98-107) mmol/L Carbon Dioxide (21.0-32.0) mmol/L BUN (7.0-18.0) mg/dL Creatinine (0.8-1.3) mg/dL Est Cr Clr Drug Dosing mL/min Estimated GFR (MDRD) ml/min Glucose (74-106) mg/dL Calcium (8.5-10.1) mg/dL Total Bilirubin (0.2-1.0) mg/dL AST (15-37) IU/L ALT (14-63) IU/L Alkaline Phosphatase (46-116) U/L Troponin I (0.000-0.056) ng/mL B-Natriuretic Peptide (<100) PG/ML Total Protein (6.4-8.2) g/dL Albumin (3.4-5.0) g/dL Globulin (2.6-4.0) g/dL Albumin/Globulin Ratio (0.9-1.6) Lipase (73-393) U/L Result Diagrams: 12/05/20 13:49 12/05/20 13:49 Sepsis Event Note - Evaluation Sepsis Screening Result: No Definite Risk - Focused Exam Vital Signs: Vital Signs Temp Pulse Resp BP Pulse Ox 12/05/20 17:50 92 16 118/47 L 93 L 12/05/20 17:14 123 H 122/57 L 93 L 12/05/20 16:44 110 H 125/51 L 94 L 12/05/20 16:14 109 H 124/55 L 92 L 12/05/20 13:50 36.6 C 134 H 128/56 L 93 L - Problem List (1) Chest pain, unspecified SNOMED Code(s): 95789438 ICD Code: R07.9 - CHEST PAIN, UNSPECIFIED Status: Acute Current Visit: Yes Qualifiers: Chest pain type: unspecified Qualified Code(s): R07.9 - Chest pain, unspecified (2) Chronic kidney disease SNOMED Code(s): 764208785 ICD Code: N18.9 - CHRONIC KIDNEY DISEASE, UNSPECIFIED Status: Acute Current Visit: Yes Qualifiers: Chronic kidney disease stage: unspecified stage Qualified Code(s): N18.9 - Chronic kidney disease, unspecified (3) Community acquired pneumonia SNOMED Code(s): 837658880 ICD Code: J18.9 - PNEUMONIA, UNSPECIFIED ORGANISM Status: Acute Current Visit: Yes Qualifiers: Laterality: left Lung location: lower lobe of lung Qualified Code(s): J18.9 - Pneumonia, unspecified organism (4) Generalized weakness SNOMED Code(s): 03766767 ICD Code: R53.1 - WEAKNESS Status: Acute Current Visit: Yes (5) Atrial fibrillation SNOMED Code(s): 11361045 ICD Code: I48.91 - UNSPECIFIED ATRIAL FIBRILLATION Status: Acute Current Visit: No (6) TIA (transient ischemic attack) SNOMED Code(s): 103181748, 243505958 ICD Code: G45.9 - TRANSIENT CEREBRAL ISCHEMIC ATTACK, UNSPECIFIED Status: Acute Priority: High Current Visit: No Qualifiers: Transient cerebral ischemia type: other Qualified Code(s): G45.8 - Other transient cerebral ischemic attacks and related syndromes (7) DM type 2 (diabetes mellitus, type 2) SNOMED Code(s): 89507234 ICD Code: E11.9 - TYPE 2 DIABETES MELLITUS WITHOUT COMPLICATIONS Status: Chronic Priority: Medium Current Visit: No Qualifiers: Diabetes mellitus complication status: with other specified complication Qualified Code(s): E11.69 - Type 2 diabetes mellitus with other specified complication (8) Dyslipidemia SNOMED Code(s): 592816096 ICD Code: E78.5 - HYPERLIPIDEMIA, UNSPECIFIED Status: Chronic Priority: Low Current Visit: No (9) HTN (hypertension) SNOMED Code(s): 43501409 ICD Code: I10 - ESSENTIAL (PRIMARY) HYPERTENSION Status: Chronic Priority: Medium Current Visit: No Qualifiers: Hypertension type: essential hypertension Qualified Code(s): I10 - Essential (primary) hypertension Problem List Initiated/Reviewed/Updated: Yes Orders Last 24hrs: Active Orders 24 hr Category Date Time Status Admission Status [Patient Status] [ADT] Stat ADT 12/05/20 17:40 Active Ambulate [RC] ASDIRECTED Care 12/05/20 18:56 Active Antiembolic Devices [RC] PER UNIT ROUTINE Care 12/05/20 18:58 Active Blood Glucose Check, Bedside [RC] TIDMEALS Care 12/05/20 18:56 Active Cardiac Monitoring [RC] . DIRECTED Care 12/05/20 13:53 Active EKG Documentation Completion [RC] STAT Care 12/05/20 13:53 Active EKG Documentation Completion [RC] STAT Care 12/05/20 17:13 Active Oxygen Therapy [RC] PRN Care 12/05/20 18:57 Active RT Aerosol Therapy [RC] ASDIRECTED Care 12/05/20 18:59 Active RT Incentive Spirometry [RC] Q2HWA Care 12/05/20 19:02 Active VTE/DVT Education [RC] PER UNIT ROUTINE Care 12/05/20 18:57 Active Vital Signs [RC] Q4H Care 12/05/20 18:57 Active Heart Healthy Diet [DIET] Diet 12/05/20 Dinner Active COVID-19/FLU A+B [MOLEC] Stat Lab 12/05/20 16:00 Received TROPONIN I [CHEM] Q3H Lab 12/05/20 19:09 Ordered TROPONIN I [CHEM] Q3H Lab 12/05/20 22:09 Ordered Acetaminophen [TylenoL] Med 12/05/20 18:56 Active 650 mg PO Q4H PRN Albuterol/Ipratropium [DuoNeb 3.0-0.5 MG/3 ML] Med 12/05/20 18:56 Active 3 ml NEB Q4HRRT PRN Dextrose 50% in Water Med 12/05/20 19:06 Active 50 ml IVPUSH ASDIRECTED PRN Glucagon,Human Recombinant [GlucaGen] Med 12/05/20 19:06 Active 1 mg IM ASDIRECTED PRN Heparin Sodium Med 12/05/20 19:15 Ordered 5,000 units SUBCUT Q8H Insulin Aspart [NovoLOG] Med 12/06/20 07:30 Active See Protocol SUBCUT TIDAC Lactated Ringers [Ringers, Lactated] 1,000 ml Med 12/05/20 19:00 Active IV ASDIRECTED Levofloxacin/Dextrose 5%-Water [Levaquin in D5W 500 MG/ Med 12/07/20 20:00 Active 100 ML] 500 mg Premix Bag 1 bag IV Q48H Levofloxacin/Dextrose 5%-Water [Levaquin in D5W 750 MG/ Med 12/05/20 19:00 Active 150 ML] 750 mg Premix Bag 1 bag IV ONETIME Metoprolol Tartrate Med 12/05/20 21:00 Pending 100 mg PO BID Ondansetron [Zofran] Med 12/05/20 18:56 Active 4 mg IVPUSH Q4H PRN Sodium Chloride 0.9% [Saline Flush] Med 12/05/20 13:53 Active 10 ml FLUSH ASDIRECTED PRN Sodium Chloride 0.9% [Saline Flush] Med 12/05/20 13:53 Active 2.5 ml FLUSH ASDIRECTED PRN Saline Lock Insert [OM.PC] Stat Oth 12/05/20 13:53 Ordered Sequential Compression Device [OM.PC] Per Unit Routine Oth 12/05/20 18:57 Ordered Medication Orders Acetaminophen (Acetaminophen 325 Mg Tab) 650 mg PO Q4H PRN PRN Reason: Pain (Mild 1-3)/fever Albuterol/Ipratropium (Albuterol/Ipratropium 3.0-0.5 Mg/3 Ml Neb Soln) 3 ml NEB Q4HRRT PRN PRN Reason: Shortness Of Breath/wheezing Dextrose/Water (50% Dextrose In Water 50 Ml Syringe) 50 ml IVPUSH ASDIRECTED P RN PRN Reason: Hypoglycemia Glucagon (Glucagon,Human Recombinant 1 Mg Vial) 1 mg IM ASDIRECTED PRN PRN Reason: Hypoglycemia Lactated Ringer's (Ringers, Lactated) 1,000 mls @ 125 mls/hr IV ASDIRECTED JACOB Levofloxacin/Dextrose 750 mg/ (Premix) 150 mls @ 100 mls/hr IV ONETIME ONE Stop: 12/05/20 20:29 Levofloxacin/Dextrose 500 mg/ (Premix) 100 mls @ 100 mls/hr IV Q48H JACOB Insulin Aspart (Insulin Aspart 100 Units/Ml 3 Ml Pen) 0 unit SUBCUT TIDAC JACOB; Protocol Non-Formulary Medication (Metoprolol Tartrate) 100 mg PO BID JACOB Ondansetron HCl (Ondansetron 4 Mg/2 Ml Sdv) 4 mg IVPUSH Q4H PRN PRN Reason: Nausea/Vomiting Sodium Chloride (Sodium Chloride 0.9% 2.5 Ml Syringe) 2.5 ml FLUSH ASDIRECTED PRN PRN Reason: Keep Vein Open Last Admin: 12/05/20 14:00 Dose: 2.5 ml Documented by: DEDRA Sodium Chloride (Sodium Chloride 0.9% 10 Ml Syringe) 10 ml FLUSH ASDIRECTED PRN PRN Reason: Keep Vein Open Last Admin: 12/05/20 14:00 Dose: 10 ml Documented by: DEDRA Assessment/Plan Comment:: 85-year-old male admitted for A. fib with RVR and community-acquired pneumonia CTA could not be obtained to rule out a PE due to patient's CKD Patient looks clinically volume depleted will start patient on some IV fluids and watch closely for fluid overload as patient has history of heart failure Resume beta-verona IV Cardizem as needed for sustained A. fib RVR IV levofloxacin for pneumonia DuoNebs as needed for shortness of breath Cardiac diet, low carb low sugar diet Sliding scale insulin
[2020-12-05] MEDS: Lactated Ringers 1,000 ML IV SCH (19:29)
[2020-12-05] MEDS ORDERED: Metoprolol Tartrate 50 MG Tab PO ONE (20:00)
[2020-12-05] MEDS ORDERED: Enoxaparin 30 MG/0.3 ML Syringe SUBCUT SCH (20:00)
[2020-12-05] MEDS: Heparin Sodium 5,000 Units/ML Vial SUBCUT SCH (21:18)
[2020-12-05] MEDS ORDERED: Magnesium Sulfate/Water 2 GM in Premix Bag 1 BAG IV ONE (22:48)
[2020-12-05] MEDS ORDERED: Lactated Ringers 1,000 ML IV ONE (23:25)
[2020-12-05] MEDS ORDERED: Diltiazem 25 MG/5 ML SDV IVPUSH PRN (23:53)
[2020-12-06] MEDS: Lactated Ringers 1,000 ML IV SCH ×3 (06:18→21:55)
[2020-12-06] MEDS: Heparin Sodium 5,000 Units/ML Vial SUBCUT SCH ×3 (06:26→21:38)
[2020-12-06] MEDS: Nystatin Topical Powder 15 GM Bottle TOP SCH ×3 (06:28→17:59)
[2020-12-06 06:48] LABS: CARBON DIOXIDE,CO2 27.9 mmol/L (21.0-32.0); POTASSIUM,K 4.5 mmol/L (3.5-5.1)
[2020-12-06] MEDS: Insulin Aspart 100 Units/ML 3 ML Pen SUBCUT SCH ×3 (07:39→18:00)
[2020-12-06] MEDS: Metoprolol Tartrate 50 MG Tab PO SCH ×2 (08:52→21:37)
[2020-12-06] MEDS ORDERED: Carboxymethylcellulose Sodium 0.5% Ophth Soln 0.4 ML UD Box of 30 EYEBOTH PRN (10:37)
[2020-12-06] MEDS: Tamsulosin 0.4 MG Cap.ER PO SCH (12:22)
--- NOTE | 2020-12-06 13:31 | PCM.PN ---
- General Info Date of Service: 12/06/20 Admission Dx/Problem (Free Text): Admission Diagnosis/Problem Admission Diagnosis/Problem Chest pain in adult Subjective Update: Patient seen at bedside, patient was retaining urine this a.m. had to be straight catheterized, and was catheterized 1200 mL of urine. Patient states he has history of TURP in the past in the past. Functional Status: Reports: Tolerating Diet, Ambulating. Denies: Urinating - Review of Systems General: Reports: Fatigue, Malaise. Denies: Fever, Weakness Pulmonary: Reports: Shortness of Breath, Cough, Sputum. Denies: Pleuritic Chest Pain Cardiovascular: Reports: Dyspnea on Exertion. Denies: Chest Pain, Palpitations Gastrointestinal: Denies: Abdominal Pain, Constipation, Nausea, Vomiting Genitourinary: Reports: Retention. Denies: Dysuria, Frequency, Burning Musculoskeletal: Denies: Neck Pain, Shoulder Pain, Arm Pain Skin: Denies: Cyanosis, Jaundice, Mottled - Patient Data Vitals - Most Recent: Last Vital Signs Temp 36.8 C 12/06/20 11:00 Pulse 87 12/06/20 11:00 Resp 16 12/06/20 11:00 BP 122/59 L 12/06/20 11:00 Pulse Ox 90 L 12/06/20 11:00 Weight - Most Recent: 87.725 kg I&O - Last 24 Hours: Intake & Output 12/05/20 12/06/20 12/06/20 22:59 06:59 14:59 Intake Total 2863 Output Total 0 Balance 2863 Lab Results Last 24 Hours: Laboratory Results - last 24 hr 12/05/20 12/05/20 12/05/20 Range/Units 13:49 13:49 13:49 WBC 7.95 (4.0-11.0) K/uL RBC 4.07 L (4.50-5.90) M/uL Hgb 13.1 (13.0-17.0) g/dL Hct 39.6 (38.0-50.0) % MCV 97.3 (80.0-98.0) fL MCH 32.2 H (27.0-32.0) pg MCHC 33.1 (31.0-37.0) g/dL RDW Std Deviation 53.2 (28.0-62.0) fl RDW Coeff of Theresa 15 (11.0-15.0) % Plt Count 194 (150-400) K/uL MPV 9.50 (7.40-12.00) fL Neut % (Auto) 77.3 (48.0-80.0) % Lymph % (Auto) 15.0 L (16.0-40.0) % [place] % (Auto) 6.5 (0.0-15.0) % Eos % (Auto) 1.1 (0.0-7.0) % Baso % (Auto) 0.1 (0.0-1.5) % Neut # (Auto) 6.1 H (1.4-5.7) K/uL Lymph # (Auto) 1.2 (0.6-2.4) K/uL [place] # (Auto) 0.5 (0.0-0.8) K/uL Eos # (Auto) 0.1 (0.0-0.7) K/uL Baso # (Auto) 0.0 (0.0-0.1) K/uL Nucleated RBC % 0.0 /100WBC Nucleated RBCs # 0 K/uL D-Dimer, Quantitative (0.0-0.50) mg/L FEU Sodium 135 L (136-148) mmol/L Potassium 3.7 (3.5-5.1) mmol/L Chloride 96 L (98-107) mmol/L Carbon Dioxide 25.4 (21.0-32.0) mmol/L BUN 36 H (7.0-18.0) mg/dL Creatinine 3.0 H (0.8-1.3) mg/dL Est Cr Clr Drug Dosing 18.33 mL/min Estimated GFR (MDRD) 20.0 ml/min Glucose 280 H (74-106) mg/dL POC Glucose (70-99) mg/dL Calcium 8.9 (8.5-10.1) mg/dL Phosphorus (2.6-4.7) mg/dL Magnesium (1.8-2.4) mg/dL Total Bilirubin 0.6 (0.2-1.0) mg/dL AST 14 L (15-37) IU/L ALT 17 (14-63) IU/L Alkaline Phosphatase 148 H (46-116) U/L Troponin I < 0.050 (0.000-0.056) ng/mL B-Natriuretic Peptide 122 H (<100) PG/ML Total Protein 7.1 (6.4-8.2) g/dL Albumin 3.2 L (3.4-5.0) g/dL Globulin 3.9 (2.6-4.0) g/dL Albumin/Globulin Ratio 0.8 L (0.9-1.6) Lipase 81 (73-393) U/L Influenza Type A RNA (NEGATIVE) Influenza Type B RNA (NEGATIVE) SARS-CoV-2 RNA (PENNY) (NEGATIVE) 12/05/20 12/05/20 12/05/20 Range/Units 14:52 16:00 19:26 WBC (4.0-11.0) K/uL RBC (4.50-5.90) M/uL Hgb (13.0-17.0) g/dL Hct (38.0-50.0) % MCV (80.0-98.0) fL MCH (27.0-32.0) pg MCHC (31.0-37.0) g/dL RDW Std Deviation (28.0-62.0) fl RDW Coeff of Theresa (11.0-15.0) % Plt Count (150-400) K/uL MPV (7.40-12.00) fL Neut % (Auto) (48.0-80.0) % Lymph % (Auto) (16.0-40.0) % [place] % (Auto) (0.0-15.0) % Eos % (Auto) (0.0-7.0) % Baso % (Auto) (0.0-1.5) % Neut # (Auto) (1.4-5.7) K/uL Lymph # (Auto) (0.6-2.4) K/uL [place] # (Auto) (0.0-0.8) K/uL Eos # (Auto) (0.0-0.7) K/uL Baso # (Auto) (0.0-0.1) K/uL Nucleated RBC % /100WBC Nucleated RBCs # K/uL D-Dimer, Quantitative 1.70 H (0.0-0.50) mg/L FEU Sodium (136-148) mmol/L Potassium (3.5-5.1) mmol/L Chloride (98-107) mmol/L Carbon Dioxide (21.0-32.0) mmol/L BUN (7.0-18.0) mg/dL Creatinine (0.8-1.3) mg/dL Est Cr Clr Drug Dosing mL/min Estimated GFR (MDRD) ml/min Glucose (74-106) mg/dL POC Glucose (70-99) mg/dL Calcium (8.5-10.1) mg/dL Phosphorus (2.6-4.7) mg/dL Magnesium (1.8-2.4) mg/dL Total Bilirubin (0.2-1.0) mg/dL AST (15-37) IU/L ALT (14-63) IU/L Alkaline Phosphatase (46-116) U/L Troponin I < 0.050 (0.000-0.056) ng/mL B-Natriuretic Peptide (<100) PG/ML Total Protein (6.4-8.2) g/dL Albumin (3.4-5.0) g/dL Globulin (2.6-4.0) g/dL Albumin/Globulin Ratio (0.9-1.6) Lipase (73-393) U/L Influenza Type A RNA NEGATIVE (NEGATIVE) Influenza Type B RNA NEGATIVE (NEGATIVE) SARS-CoV-2 RNA (PENNY) NEGATIVE (NEGATIVE) 12/05/20 12/05/20 12/06/20 Range/Units 19:26 22:22 05:30 WBC 5.54 (4.0-11.0) K/uL RBC 3.62 L (4.50-5.90) M/uL Hgb 11.5 L (13.0-17.0) g/dL Hct 35.4 L (38.0-50.0) % MCV 97.8 (80.0-98.0) fL MCH 31.8 (27.0-32.0) pg MCHC 32.5 (31.0-37.0) g/dL RDW Std Deviation 52.9 (28.0-62.0) fl RDW Coeff of Theresa 15 (11.0-15.0) % Plt Count 177 (150-400) K/uL MPV 9.30 (7.40-12.00) fL Neut % (Auto) 75.7 (48.0-80.0) % Lymph % (Auto) 15.3 L (16.0-40.0) % [place] % (Auto) 7.6 (0.0-15.0) % Eos % (Auto) 1.4 (0.0-7.0) % Baso % (Auto) 0.0 (0.0-1.5) % Neut # (Auto) 4.2 (1.4-5.7) K/uL Lymph # (Auto) 0.9 (0.6-2.4) K/uL [place] # (Auto) 0.4 (0.0-0.8) K/uL Eos # (Auto) 0.1 (0.0-0.7) K/uL Baso # (Auto) 0.0 (0.0-0.1) K/uL Nucleated RBC % 0.0 /100WBC Nucleated RBCs # 0 K/uL D-Dimer, Quantitative (0.0-0.50) mg/L FEU Sodium (136-148) mmol/L Potassium (3.5-5.1) mmol/L Chloride (98-107) mmol/L Carbon Dioxide (21.0-32.0) mmol/L BUN (7.0-18.0) mg/dL Creatinine (0.8-1.3) mg/dL Est Cr Clr Drug Dosing mL/min Estimated GFR (MDRD) ml/min Glucose (74-106) mg/dL POC Glucose (70-99) mg/dL Calcium (8.5-10.1) mg/dL Phosphorus (2.6-4.7) mg/dL Magnesium 1.7 L (1.8-2.4) mg/dL Total Bilirubin (0.2-1.0) mg/dL AST (15-37) IU/L ALT (14-63) IU/L Alkaline Phosphatase (46-116) U/L Troponin I < 0.050 (0.000-0.056) ng/mL B-Natriuretic Peptide (<100) PG/ML Total Protein (6.4-8.2) g/dL Albumin (3.4-5.0) g/dL Globulin (2.6-4.0) g/dL Albumin/Globulin Ratio (0.9-1.6) Lipase (73-393) U/L Influenza Type A RNA (NEGATIVE) Influenza Type B RNA (NEGATIVE) SARS-CoV-2 RNA (PENNY) (NEGATIVE) 12/06/20 12/06/20 12/06/20 Range/Units 05:30 06:37 12:20 WBC (4.0-11.0) K/uL RBC (4.50-5.90) M/uL Hgb (13.0-17.0) g/dL Hct (38.0-50.0) % MCV (80.0-98.0) fL MCH (27.0-32.0) pg MCHC (31.0-37.0) g/dL RDW Std Deviation (28.0-62.0) fl RDW Coeff of Theresa (11.0-15.0) % Plt Count (150-400) K/uL MPV (7.40-12.00) fL Neut % (Auto) (48.0-80.0) % Lymph % (Auto) (16.0-40.0) % [place] % (Auto) (0.0-15.0) % Eos % (Auto) (0.0-7.0) % Baso % (Auto) (0.0-1.5) % Neut # (Auto) (1.4-5.7) K/uL Lymph # (Auto) (0.6-2.4) K/uL [place] # (Auto) (0.0-0.8) K/uL Eos # (Auto) (0.0-0.7) K/uL Baso # (Auto) (0.0-0.1) K/uL Nucleated RBC % /100WBC Nucleated RBCs # K/uL D-Dimer, Quantitative (0.0-0.50) mg/L FEU Sodium 139 (136-148) mmol/L Potassium 4.5 (3.5-5.1) mmol/L Chloride 104 (98-107) mmol/L Carbon Dioxide 27.9 (21.0-32.0) mmol/L BUN 31 H (7.0-18.0) mg/dL Creatinine 2.5 H (0.8-1.3) mg/dL Est Cr Clr Drug Dosing 21.28 mL/min Estimated GFR (MDRD) 24.7 ml/min Glucose 90 (74-106) mg/dL POC Glucose 91 133 H (70-99) mg/dL Calcium 8.3 L (8.5-10.1) mg/dL Phosphorus 3.4 (2.6-4.7) mg/dL Magnesium 2.5 H (1.8-2.4) mg/dL Total Bilirubin (0.2-1.0) mg/dL AST (15-37) IU/L ALT (14-63) IU/L Alkaline Phosphatase (46-116) U/L Troponin I (0.000-0.056) ng/mL B-Natriuretic Peptide (<100) PG/ML Total Protein (6.4-8.2) g/dL Albumin (3.4-5.0) g/dL Globulin (2.6-4.0) g/dL Albumin/Globulin Ratio (0.9-1.6) Lipase (73-393) U/L Influenza Type A RNA (NEGATIVE) Influenza Type B RNA (NEGATIVE) SARS-CoV-2 RNA (PENNY) (NEGATIVE) Med Orders - Current: Current Medications Acetaminophen (Acetaminophen 325 Mg Tab) 650 mg PO Q4H PRN PRN Reason: Pain (Mild 1-3)/fever Albuterol/Ipratropium (Albuterol/Ipratropium 3.0-0.5 Mg/3 Ml Neb Soln) 3 ml NEB Q4HRRT PRN PRN Reason: Shortness Of Breath/wheezing Artificial Tears (Carboxymethylcellulose Sodium 0.5% Ophth Soln 0.4 Ml Ud Box Of 30) 1 each EYEBOTH TID PRN PRN Reason: Dryness Atorvastatin Calcium (Atorvastatin 40 Mg Tab) 40 mg PO BEDTIME JACOB Cholecalciferol (Cholecalciferol (Vitamin D3) 25 Mcg Tab) 50 mcg PO QPM JACOB Citalopram Hydrobromide (Citalopram 20 Mg Tab) 20 mg PO DAILY [facility] Dextrose/Water (50% Dextrose In Water 50 Ml Syringe) 50 ml IVPUSH ASDIRECTED PRN PRN Reason: Hypoglycemia Diltiazem HCl (Diltiazem 25 Mg/5 Ml Sdv) 20 mg IVPUSH Q4H PRN PRN Reason: Tachycardia Glucagon (Glucagon,Human Recombinant 1 Mg Vial) 1 mg IM ASDIRECTED PRN PRN Reason: Hypoglycemia Heparin Sodium (Porcine) (Heparin Sodium 5,000 Units/Ml Vial) 5,000 units SUBCUT Q8H [facility] Last Admin: 12/06/20 06:26 Dose: 5,000 units Documented by: Lactated Ringer's (Ringers, Lactated) 1,000 mls @ 125 mls/hr IV ASDIRECTED [facility] Last Admin: 12/06/20 06:18 Dose: 125 mls/hr Documented by: Levofloxacin/Dextrose 500 mg/ (Premix) 100 mls @ 100 mls/hr IV Q48H [facility] Insulin Aspart (Insulin Aspart 100 Units/Ml 3 Ml Pen) 0 unit SUBCUT TIDAC [facility]; Protocol Last Admin: 12/06/20 12:23 Dose: Not Given Documented by: Levothyroxine Sodium (Levothyroxine 25 Mcg Tab) 25 mcg PO ACBREAKFAST [facility] Metoprolol Tartrate (Metoprolol Tartrate 50 Mg Tab) 100 mg PO BID [facility] Last Admin: 12/06/20 08:52 Dose: 100 mg Documented by: Mirtazapine (Mirtazapine 15 Mg Tab) 30 mg PO BEDTIME [facility] Nystatin (Nystatin Topical Powder 15 Gm Bottle) 0 gm TOP QID [facility] Last Admin: 12/06/20 12:26 Dose: 1 applic Documented by: Ondansetron HCl (Ondansetron 4 Mg/2 Ml Sdv) 4 mg IVPUSH Q4H PRN PRN Reason: Nausea/Vomiting Psyllium Husk [ Metamucil] 660 Gm Powder 1 each PO QAM [facility] Prednisolone Acetate (Prednisolone Acetate 1% Ophth Susp 5 Ml Bottle) 1 ml EYERT TID [facility] Sodium Chloride (Sodium Chloride 0.9% 2.5 Ml Syringe) 2.5 ml FLUSH ASDIRECTED PRN PRN Reason: Keep Vein Open Last Admin: 12/05/20 14:00 Dose: 2.5 ml Documented by: Sodium Chloride (Sodium Chloride 0.9% 10 Ml Syringe) 10 ml FLUSH ASDIRECTED PRN PRN Reason: Keep Vein Open Last Admin: 12/05/20 14:00 Dose: 10 ml Documented by: Spironolactone (Spironolactone 25 Mg Tab) 25 mg PO DAILY [facility] Tamsulosin HCl (Tamsulosin 0.4 Mg Cap.Er) 0.4 mg PO PCBREAKFAST [facility] Last Admin: 12/06/20 12:22 Dose: 0.4 mg Documented by: Discontinued Medications Aspirin (Aspirin 81 Mg Tab.Chew) 243 mg PO ONETIME ONE Stop: 12/05/20 14:15 Last Admin: 12/05/20 14:49 Dose: 243 mg Documented by: Enoxaparin Sodium (Enoxaparin 30 Mg/0.3 Ml Syringe) 30 mg SUBCUT Q24H [facility] Sodium Chloride (Normal Saline) 1,000 mls @ 999 mls/hr IV STAT ONE Stop: 12/05/20 14:53 Last Admin: 12/05/20 14:00 Dose: 999 mls/hr Documented by: Ceftriaxone Sodium/Dextrose 1 (gm/ Premix) 50 mls @ 100 mls/hr IV ONETIME ONE Stop: 12/05/20 17:43 Last Admin: 12/05/20 17:39 Dose: 100 mls/hr Documented by: Levofloxacin/Dextrose 750 mg/ (Premix) 150 mls @ 100 mls/hr IV ONETIME ONE Stop: 12/05/20 20:29 Last Admin: 12/05/20 19:32 Dose: 100 mls/hr Documented by: Magnesium Sulfate 2 gm/ Premix 50 mls @ 12.5 mls/hr IV ONETIME ONE Stop: 12/06/20 02:47 Last Admin: 12/05/20 23:53 Dose: 12.5 mls/hr Documented by: Lactated Ringer's (Ringers, Lactated) 1,000 mls @ 999 mls/hr IV .BOLUS ONE Stop: 12/06/20 00:25 Last Admin: 12/05/20 23:54 Dose: 999 mls/hr Documented by: Metoprolol Tartrate (Metoprolol Tartrate 50 Mg Tab) 100 mg PO ONETIME ONE Stop: 12/05/20 20:01 Last Admin: 12/05/20 20:03 Dose: 100 mg Documented by: Tamsulosin HCl (Tamsulosin 0.4 Mg Cap.Er) 0.4 mg PO PCBREAKFAST [facility] - Exam Urinary Catheter Total Time: 0Days 0Hours General: Alert, Oriented, Cooperative Lungs: Normal Respiratory Effort, Decreased Breath Sounds, Rales Cardiovascular: Regular Rate, Irregular Rhythm GI/Abdominal Exam: Normal Bowel Sounds, Soft, Non-Tender Back Exam: Normal Inspection Extremities: Normal Inspection - Patient Data Lab Results Last 24 hrs: Laboratory Results - last 24 hr 12/05/20 12/05/20 12/05/20 Range/Units 13:49 13:49 13:49 WBC 7.95 (4.0-11.0) K/uL RBC 4.07 L (4.50-5.90) M/uL Hgb 13.1 (13.0-17.0) g/dL Hct 39.6 (38.0-50.0) % MCV 97.3 (80.0-98.0) fL MCH 32.2 H (27.0-32.0) pg MCHC 33.1 (31.0-37.0) g/dL RDW Std Deviation 53.2 (28.0-62.0) fl RDW Coeff of Theresa 15 (11.0-15.0) % Plt Count 194 (150-400) K/uL MPV 9.50 (7.40-12.00) fL Neut % (Auto) 77.3 (48.0-80.0) % Lymph % (Auto) 15.0 L (16.0-40.0) % [place] % (Auto) 6.5 (0.0-15.0) % Eos % (Auto) 1.1 (0.0-7.0) % Baso % (Auto) 0.1 (0.0-1.5) % Neut # (Auto) 6.1 H (1.4-5.7) K/uL Lymph # (Auto) 1.2 (0.6-2.4) K/uL [place] # (Auto) 0.5 (0.0-0.8) K/uL Eos # (Auto) 0.1 (0.0-0.7) K/uL Baso # (Auto) 0.0 (0.0-0.1) K/uL Nucleated RBC % 0.0 /100WBC Nucleated RBCs # 0 K/uL D-Dimer, Quantitative (0.0-0.50) mg/L FEU Sodium 135 L (136-148) mmol/L Potassium 3.7 (3.5-5.1) mmol/L Chloride 96 L (98-107) mmol/L Carbon Dioxide 25.4 (21.0-32.0) mmol/L BUN 36 H (7.0-18.0) mg/dL Creatinine 3.0 H (0.8-1.3) mg/dL Est Cr Clr Drug Dosing 18.33 mL/min Estimated GFR (MDRD) 20.0 ml/min Glucose 280 H (74-106) mg/dL POC Glucose (70-99) mg/dL Calcium 8.9 (8.5-10.1) mg/dL Phosphorus (2.6-4.7) mg/dL Magnesium (1.8-2.4) mg/dL Total Bilirubin 0.6 (0.2-1.0) mg/dL AST 14 L (15-37) IU/L ALT 17 (14-63) IU/L Alkaline Phosphatase 148 H (46-116) U/L Troponin I < 0.050 (0.000-0.056) ng/mL B-Natriuretic Peptide 122 H (<100) PG/ML Total Protein 7.1 (6.4-8.2) g/dL Albumin 3.2 L (3.4-5.0) g/dL Globulin 3.9 (2.6-4.0) g/dL Albumin/Globulin Ratio 0.8 L (0.9-1.6) Lipase 81 (73-393) U/L Influenza Type A RNA (NEGATIVE) Influenza Type B RNA (NEGATIVE) SARS-CoV-2 RNA (PENNY) (NEGATIVE) 12/05/20 12/05/20 12/05/20 Range/Units 14:52 16:00 19:26 WBC (4.0-11.0) K/uL RBC (4.50-5.90) M/uL Hgb (13.0-17.0) g/dL Hct (38.0-50.0) % MCV (80.0-98.0) fL MCH (27.0-32.0) pg MCHC (31.0-37.0) g/dL RDW Std Deviation (28.0-62.0) fl RDW Coeff of Theresa (11.0-15.0) % Plt Count (150-400) K/uL MPV (7.40-12.00) fL Neut % (Auto) (48.0-80.0) % Lymph % (Auto) (16.0-40.0) % [place] % (Auto) (0.0-15.0) % Eos % (Auto) (0.0-7.0) % Baso % (Auto) (0.0-1.5) % Neut # (Auto) (1.4-5.7) K/uL Lymph # (Auto) (0.6-2.4) K/uL [place] # (Auto) (0.0-0.8) K/uL Eos # (Auto) (0.0-0.7) K/uL Baso # (Auto) (0.0-0.1) K/uL Nucleated RBC % /100WBC Nucleated RBCs # K/uL D-Dimer, Quantitative 1.70 H (0.0-0.50) mg/L FEU Sodium (136-148) mmol/L Potassium (3.5-5.1) mmol/L Chloride (98-107) mmol/L Carbon Dioxide (21.0-32.0) mmol/L BUN (7.0-18.0) mg/dL Creatinine (0.8-1.3) mg/dL Est Cr Clr Drug Dosing mL/min Estimated GFR (MDRD) ml/min Glucose (74-106) mg/dL POC Glucose (70-99) mg/dL Calcium (8.5-10.1) mg/dL Phosphorus (2.6-4.7) mg/dL Magnesium (1.8-2.4) mg/dL Total Bilirubin (0.2-1.0) mg/dL AST (15-37) IU/L ALT (14-63) IU/L Alkaline Phosphatase (46-116) U/L Troponin I < 0.050 (0.000-0.056) ng/mL B-Natriuretic Peptide (<100) PG/ML Total Protein (6.4-8.2) g/dL Albumin (3.4-5.0) g/dL Globulin (2.6-4.0) g/dL Albumin/Globulin Ratio (0.9-1.6) Lipase (73-393) U/L Influenza Type A RNA NEGATIVE (NEGATIVE) Influenza Type B RNA NEGATIVE (NEGATIVE) SARS-CoV-2 RNA (PENNY) NEGATIVE (NEGATIVE) 12/05/20 12/05/20 12/06/20 Range/Units 19:26 22:22 05:30 WBC 5.54 (4.0-11.0) K/uL RBC 3.62 L (4.50-5.90) M/uL Hgb 11.5 L (13.0-17.0) g/dL Hct 35.4 L (38.0-50.0) % MCV 97.8 (80.0-98.0) fL MCH 31.8 (27.0-32.0) pg MCHC 32.5 (31.0-37.0) g/dL RDW Std Deviation 52.9 (28.0-62.0) fl RDW Coeff of Theresa 15 (11.0-15.0) % Plt Count 177 (150-400) K/uL MPV 9.30 (7.40-12.00) fL Neut % (Auto) 75.7 (48.0-80.0) % Lymph % (Auto) 15.3 L (16.0-40.0) % [place] % (Auto) 7.6 (0.0-15.0) % Eos % (Auto) 1.4 (0.0-7.0) % Baso % (Auto) 0.0 (0.0-1.5) % Neut # (Auto) 4.2 (1.4-5.7) K/uL Lymph # (Auto) 0.9 (0.6-2.4) K/uL [place] # (Auto) 0.4 (0.0-0.8) K/uL Eos # (Auto) 0.1 (0.0-0.7) K/uL Baso # (Auto) 0.0 (0.0-0.1) K/uL Nucleated RBC % 0.0 /100WBC Nucleated RBCs # 0 K/uL D-Dimer, Quantitative (0.0-0.50) mg/L FEU Sodium (136-148) mmol/L Potassium (3.5-5.1) mmol/L Chloride (98-107) mmol/L Carbon Dioxide (21.0-32.0) mmol/L BUN (7.0-18.0) mg/dL Creatinine (0.8-1.3) mg/dL Est Cr Clr Drug Dosing mL/min Estimated GFR (MDRD) ml/min Glucose (74-106) mg/dL POC Glucose (70-99) mg/dL Calcium (8.5-10.1) mg/dL Phosphorus (2.6-4.7) mg/dL Magnesium 1.7 L (1.8-2.4) mg/dL Total Bilirubin (0.2-1.0) mg/dL AST (15-37) IU/L ALT (14-63) IU/L Alkaline Phosphatase (46-116) U/L Troponin I < 0.050 (0.000-0.056) ng/mL B-Natriuretic Peptide (<100) PG/ML Total Protein (6.4-8.2) g/dL Albumin (3.4-5.0) g/dL Globulin (2.6-4.0) g/dL Albumin/Globulin Ratio (0.9-1.6) Lipase (73-393) U/L Influenza Type A RNA (NEGATIVE) Influenza Type B RNA (NEGATIVE) SARS-CoV-2 RNA (PENNY) (NEGATIVE) 12/06/20 12/06/20 12/06/20 Range/Units 05:30 06:37 12:20 WBC (4.0-11.0) K/uL RBC (4.50-5.90) M/uL Hgb (13.0-17.0) g/dL Hct (38.0-50.0) % MCV (80.0-98.0) fL MCH (27.0-32.0) pg MCHC (31.0-37.0) g/dL RDW Std Deviation (28.0-62.0) fl RDW Coeff of Theresa (11.0-15.0) % Plt Count (150-400) K/uL MPV (7.40-12.00) fL Neut % (Auto) (48.0-80.0) % Lymph % (Auto) (16.0-40.0) % [place] % (Auto) (0.0-15.0) % Eos % (Auto) (0.0-7.0) % Baso % (Auto) (0.0-1.5) % Neut # (Auto) (1.4-5.7) K/uL Lymph # (Auto) (0.6-2.4) K/uL [place] # (Auto) (0.0-0.8) K/uL Eos # (Auto) (0.0-0.7) K/uL Baso # (Auto) (0.0-0.1) K/uL Nucleated RBC % /100WBC Nucleated RBCs # K/uL D-Dimer, Quantitative (0.0-0.50) mg/L FEU Sodium 139 (136-148) mmol/L Potassium 4.5 (3.5-5.1) mmol/L Chloride 104 (98-107) mmol/L Carbon Dioxide 27.9 (21.0-32.0) mmol/L BUN 31 H (7.0-18.0) mg/dL Creatinine 2.5 H (0.8-1.3) mg/dL Est Cr Clr Drug Dosing 21.28 mL/min Estimated GFR (MDRD) 24.7 ml/min Glucose 90 (74-106) mg/dL POC Glucose 91 133 H (70-99) mg/dL Calcium 8.3 L (8.5-10.1) mg/dL Phosphorus 3.4 (2.6-4.7) mg/dL Magnesium 2.5 H (1.8-2.4) mg/dL Total Bilirubin (0.2-1.0) mg/dL AST (15-37) IU/L ALT (14-63) IU/L Alkaline Phosphatase (46-116) U/L Troponin I (0.000-0.056) ng/mL B-Natriuretic Peptide (<100) PG/ML Total Protein (6.4-8.2) g/dL Albumin (3.4-5.0) g/dL Globulin (2.6-4.0) g/dL Albumin/Globulin Ratio (0.9-1.6) Lipase (73-393) U/L Influenza Type A RNA (NEGATIVE) Influenza Type B RNA (NEGATIVE) SARS-CoV-2 RNA ([place]) (NEGATIVE) Result Diagrams: 12/06/20 05:30 12/06/20 05:30 Sepsis Event Note - Evaluation Sepsis Screening Result: No Definite Risk - Focused Exam Vital Signs: Vital Signs Temp Pulse Pulse Resp BP BP Pulse Ox 12/06/20 11:00 36.8 C 87 16 122/59 L 90 L 12/06/20 08:52 77 127/58 L 12/06/20 07:29 36.8 C 77 16 127/58 L 95 12/06/20 04:00 36.4 C 77 17 119/57 L 91 L - Problem List & Annotations (1) Chest pain, unspecified SNOMED Code(s): 03367265 Code(s): R07.9 - CHEST PAIN, UNSPECIFIED Status: Acute Current Visit: Yes Qualifiers: Chest pain type: unspecified Qualified Code(s): R07.9 - Chest pain, unspecified (2) Chronic kidney disease SNOMED Code(s): 228493438 Code(s): N18.9 - CHRONIC KIDNEY DISEASE, UNSPECIFIED Status: Acute Current Visit: Yes Qualifiers: Chronic kidney disease stage: unspecified stage Qualified Code(s): N18.9 - Chronic kidney disease, unspecified (3) Community acquired pneumonia SNOMED Code(s): 891173596 Code(s): J18.9 - PNEUMONIA, UNSPECIFIED ORGANISM Status: Acute Current Visit: Yes Qualifiers: Laterality: left Lung location: lower lobe of lung Qualified Code(s): J18.9 - Pneumonia, unspecified organism (4) Generalized weakness SNOMED Code(s): 42450691 Code(s): R53.1 - WEAKNESS Status: Acute Current Visit: Yes (5) Atrial fibrillation SNOMED Code(s): 06397308 Code(s): I48.91 - UNSPECIFIED ATRIAL FIBRILLATION Status: Acute Current Visit: No (6) TIA (transient ischemic attack) SNOMED Code(s): 504567095, 845724543 Code(s): G45.9 - TRANSIENT CEREBRAL ISCHEMIC ATTACK, UNSPECIFIED Status: Acute Priority: High Current Visit: No Qualifiers: Transient cerebral ischemia type: other Qualified Code(s): G45.8 - Other transient cerebral ischemic attacks and related syndromes (7) DM type 2 (diabetes mellitus, type 2) SNOMED Code(s): 47103053 Code(s): E11.9 - TYPE 2 DIABETES MELLITUS WITHOUT COMPLICATIONS Status: Chronic Priority: Medium Current Visit: No Qualifiers: Diabetes mellitus complication status: with other specified complication Qualified Code(s): E11.69 - Type 2 diabetes mellitus with other specified complication (8) Dyslipidemia SNOMED Code(s): 297552364 Code(s): E78.5 - HYPERLIPIDEMIA, UNSPECIFIED Status: Chronic Priority: Low Current Visit: No (9) HTN (hypertension) SNOMED Code(s): 32237532 Code(s): I10 - ESSENTIAL (PRIMARY) HYPERTENSION Status: Chronic Priority: Medium Current Visit: No Qualifiers: Hypertension type: essential hypertension Qualified Code(s): I10 - Essential (primary) hypertension (10) Urinary retention SNOMED Code(s): 354086231 Code(s): R33.9 - RETENTION OF URINE, UNSPECIFIED Status: Acute Current Visit: Yes - Problem List Review Problem List Initiated/Reviewed/Updated: Yes - My Orders Last 24 Hours: My Active Orders 12/05/20 Dinner Heart Healthy Diet [DIET] 12/05/20 18:56 Ambulate [RC] ASDIRECTED Blood Glucose Check, Bedside [RC] TIDMEALS Acetaminophen [TylenoL] 650 mg PO Q4H PRN Albuterol/Ipratropium [DuoNeb 3.0-0.5 MG/3 ML] 3 ml NEB Q4HRRT PRN Ondansetron [Zofran] 4 mg IVPUSH Q4H PRN 12/05/20 18:57 Oxygen Therapy [RC] PRN VTE/DVT Education [RC] PER UNIT ROUTINE Vital Signs [RC] Q4H Sequential Compression Device [OM.PC] Per Unit Routine 12/05/20 18:58 Antiembolic Devices [RC] PER UNIT ROUTINE 12/05/20 18:59 RT Aerosol Therapy [RC] ASDIRECTED 12/05/20 19:00 Lactated Ringers [Ringers, Lactated] 1,000 ml IV ASDIRECTED 12/05/20 19:02 RT Incentive Spirometry [RC] Q2HWA 12/05/20 19:06 Dextrose 50% in Water 50 ml IVPUSH ASDIRECTED PRN Glucagon,Human Recombinant [GlucaGen] 1 mg IM ASDIRECTED PRN 12/05/20 22:00 Heparin Sodium 5,000 units SUBCUT Q8H 12/05/20 23:53 Diltiazem 20 mg IVPUSH Q4H PRN 12/06/20 04:00 Weight Daily [Height and Weight] [RC] DAILY 12/06/20 06:00 Nystatin [Nystop] 0 gm TOP QID 12/06/20 07:30 Insulin Aspart [NovoLOG] See Protocol SUBCUT TIDAC 12/06/20 09:00 Metoprolol Tartrate [Lopressor] 100 mg PO BID 12/07/20 20:00 Levofloxacin/Dextrose 5%-Water [Levaquin in D5W 500 MG/100 ML] 500 mg Premix Bag 1 bag IV Q48H - Plan Plan:: 85-year-old male admitted for A. fib with RVR and community-acquired pneumonia CTA could not be obtained to rule out a PE due to patient's CKD PatientS kidney function is better today after IV fluid hydration, will continue hydration today and possibly DC this PM if patient continues to eat and drink well Resume beta-[place]ona IV Cardizem as needed for sustained A. fib RVR IV levofloxacin for pneumonia Urinary retention, will check urine for UTI, continue straight cath if patient continues to retain, if frequent straight cath is required we will probably have to insert indwelling Silverio. DuoNebs as needed for shortness of breath Cardiac diet, low carb low sugar diet Sliding scale insulin
[2020-12-06] MEDS: prednisoLONE Acetate 1% Ophth Susp 5 ML Bottle EYERT SCH ×2 (17:59→21:39)
[2020-12-06] MEDS: Cholecalciferol (Vitamin D3) 25 MCG Tab PO SCH (18:04)
[2020-12-06] MEDS: Mirtazapine 15 MG Tab PO SCH (21:38)
[2020-12-06] MEDS: atorvaSTATin 40 MG Tab PO SCH (21:38)
[2020-12-07] MEDS: Nystatin Topical Powder 15 GM Bottle TOP SCH ×4 (01:39→18:00)
[2020-12-07] MEDS: Acetaminophen 325 MG Tab PO PRN (02:17)
[2020-12-07] MEDS: Lactated Ringers 1,000 ML IV SCH (05:50)
[2020-12-07] MEDS: prednisoLONE Acetate 1% Ophth Susp 5 ML Bottle EYERT SCH ×3 (06:12→21:57)
[2020-12-07 06:43] LABS: POTASSIUM,K 4.7 mmol/L (3.5-5.1)
[2020-12-07] MEDS: Levothyroxine 25 MCG Tab PO SCH (06:45)
[2020-12-07] MEDS: Heparin Sodium 5,000 Units/ML Vial SUBCUT SCH ×3 (06:45→21:51)
[2020-12-07] MEDS: Albuterol/Ipratropium 3.0-0.5 MG/3 ML Neb Soln NEB PRN ×2 (07:37→20:40)
[2020-12-07] MEDS ORDERED: Levofloxacin/Dextrose 5%-Water 750 MG in Premix Bag 1 BAG IV SCH (07:45)
--- NOTE | 2020-12-07 08:10 | CT ---
Indication: Acute kidney injury, urinary retention Technique: Volumetric multidetector CT images of the abdomen and pelvis were without the administration of intravenous contrast. Comparison: None available. Findings: There is basilar atelectasis versus scar with interlobular septal thickening likely representing edema versus infiltrates with small basilar effusions. The liver is normal in attenuation without intrahepatic biliary ductal dilatation. The gallbladder is unremarkable without evidence of radiopaque calculus. There is no significant common biliary ductal dilatation or abrupt cut off. The spleen is normal in attenuation and size. The stomach and duodenum are grossly unremarkable. The pancreas is normal in attenuation without significant atrophy. The adrenal glands are unremarkable. There is nonspecific bilateral perinephric stranding without evidence of hydronephrosis or hydroureter. There is no evidence of distal obstructing calculus. Minimal stool is seen throughout the colon with moderate diverticulosis. There is demonstration of somewhat prominent appendix with periappendiceal inflammatory changes measuring up to 1 centimeter in greatest dimension. This may represent developing uncomplicated appendicitis. Correlate with history of clinical symptoms. There is no significant mesenteric, retroperitoneal, or pelvic sidewall lymph nodes. The aorta is non aneurysmal with moderate scattered atherosclerotic calcifications. There is demonstration of a thick walled somewhat irregular appearing bladder with multiple likely bladder diverticula which is decompressed secondary to Silverio catheter placement. There is no free fluid or free air. The anterior abdominal wall is intact without significant hernias. The lumbar vertebral body heights are grossly maintained with moderate to severe degenerative disc disease changes. There is no evidence of displaced fracture. Impression: Demonstration of a dilated appendix with mild to moderate periappendiceal inflammatory changes which may represent developing appendicitis. Trace bibasilar pleural effusions with pulmonary edema seen within the visualized lung bases. Colonic diverticulosis without evidence of diverticulitis. No evidence of obstructive renal calculus. Please note that all CT scans at this facility use dose modulation, iterative reconstruction, and/or weight-based dosing when appropriate to reduce radiation dose to as low as reasonably achievable. Dictated by Sukumar Harris MD @ 12/07/2020 8:10:[address] Sukumar Harris @ Dec 07 2020 8:10AM
[2020-12-07] MEDS ORDERED: Tamsulosin 0.4 MG Cap.ER PO SCH (08:30)
[2020-12-07] MEDS ORDERED: metroNIDAZOLE/Normal Saline 500 MG in Premix Bag 1 BAG IV SCH (08:40)
[2020-12-07] MEDS: Metoprolol Tartrate 50 MG Tab PO SCH ×2 (09:14→20:30)
[2020-12-07] MEDS: Spironolactone 25 MG Tab PO SCH (09:16)
[2020-12-07] MEDS: Citalopram 20 MG Tab PO SCH (09:16)
[2020-12-07] MEDS: Tamsulosin 0.4 MG Cap.ER PO SCH (09:17)
[2020-12-07] MEDS: PSYLLIUM HUSK 660 GM PO SCH (09:18)
[2020-12-07] MEDS: Insulin Aspart 100 Units/ML 3 ML Pen SUBCUT SCH ×3 (09:18→18:04)
[2020-12-07] MEDS ORDERED: Sodium Chloride 0.9% 2.5 ML Syringe FLUSH PRN (11:48)
--- NOTE | 2020-12-07 11:56 | PCM.PN ---
- General Info Date of Service: 12/07/20 Admission Dx/Problem (Free Text): Admission Diagnosis/Problem Admission Diagnosis/Problem Chest pain in adult Subjective Update: Sitting up in chair. Denies any chest pain shortness of breath or abdominal pain. Feeling very hungry. Reports mild diarrhea this morning. Again denies any fevers or chills and no abdominal pain. Functional Status: Reports: Pain Controlled, Tolerating Diet, Ambulating - Review of Systems General: Reports: No Symptoms. Denies: Weakness, Fatigue Pulmonary: Reports: No Symptoms. Denies: Shortness of Breath Cardiovascular: Reports: No Symptoms. Denies: Chest Pain Gastrointestinal: Reports: No Symptoms. Denies: Abdominal Pain, Nausea, Vomiting Genitourinary: Reports: Retention. Denies: Dysuria, Frequency Musculoskeletal: Reports: No Symptoms Skin: Reports: No Symptoms Neurological: Reports: No Symptoms Psychiatric: Reports: No Symptoms - Patient Data Vitals - Most Recent: Last Vital Signs Temp 97.8 F 12/07/20 07:15 Pulse 78 12/07/20 09:14 Resp 20 12/07/20 07:15 BP 146/67 H 12/07/20 09:14 Pulse Ox 94 L 12/07/20 07:15 Weight - Most Recent: 88.269 kg I&O - Last 24 Hours: Intake & Output 12/06/20 12/07/20 12/07/20 22:59 06:59 14:59 Intake Total 1725 1682 Output Total 1380 1000 Balance 345 682 Lab Results Last 24 Hours: Laboratory Results - last 24 hr 12/06/20 12/06/20 12/06/20 Range/Units 12:20 16:58 22:00 WBC (4.0-11.0) K/uL RBC (4.50-5.90) M/uL Hgb (13.0-17.0) g/dL Hct (38.0-50.0) % MCV (80.0-98.0) fL MCH (27.0-32.0) pg MCHC (31.0-37.0) g/dL RDW Std Deviation (28.0-62.0) fl RDW Coeff of Theresa (11.0-15.0) % Plt Count (150-400) K/uL MPV (7.40-12.00) fL Neut % (Auto) (48.0-80.0) % Lymph % (Auto) (16.0-40.0) % King % (Auto) (0.0-15.0) % Eos % (Auto) (0.0-7.0) % Baso % (Auto) (0.0-1.5) % Neut # (Auto) (1.4-5.7) K/uL Lymph # (Auto) (0.6-2.4) K/uL King # (Auto) (0.0-0.8) K/uL Eos # (Auto) (0.0-0.7) K/uL Baso # (Auto) (0.0-0.1) K/uL Nucleated RBC % /100WBC Nucleated RBCs # K/uL Sodium (136-148) mmol/L Potassium (3.5-5.1) mmol/L Chloride (98-107) mmol/L Carbon Dioxide (21.0-32.0) mmol/L BUN (7.0-18.0) mg/dL Creatinine (0.8-1.3) mg/dL Est Cr Clr Drug Dosing mL/min Estimated GFR (MDRD) ml/min Glucose (74-106) mg/dL POC Glucose 133 H 95 (70-99) mg/dL Calcium (8.5-10.1) mg/dL Phosphorus (2.6-4.7) mg/dL Magnesium (1.8-2.4) mg/dL Urine Color YELLOW Urine Appearance CLEAR Urine pH 6.0 (5.0-8.0) Ur Specific [place] 1.015 (1.001-1.035) Urine Protein NEGATIVE (NEGATIVE) mg/dL Urine Glucose (UA) NEGATIVE (NEGATIVE) mg/dL Urine Ketones NEGATIVE (NEGATIVE) mg/dL Urine Occult Blood NEGATIVE (NEGATIVE) Urine Nitrite NEGATIVE (NEGATIVE) Urine Bilirubin NEGATIVE (NEGATIVE) Urine Urobilinogen 0.2 (<2.0) EU/dL Ur Leukocyte Esterase NEGATIVE (NEGATIVE) 12/07/20 12/07/20 12/07/20 Range/Units 05:34 05:34 08:44 WBC 5.23 (4.0-11.0) K/uL RBC 3.43 L (4.50-5.90) M/uL Hgb 10.8 L (13.0-17.0) g/dL Hct 33.8 L (38.0-50.0) % MCV 98.5 H (80.0-98.0) fL MCH 31.5 (27.0-32.0) pg MCHC 32.0 (31.0-37.0) g/dL RDW Std Deviation 53.6 (28.0-62.0) fl RDW Coeff of Theresa 15 (11.0-15.0) % Plt Count 168 (150-400) K/uL MPV 9.40 (7.40-12.00) fL Neut % (Auto) 71.5 (48.0-80.0) % Lymph % (Auto) 16.8 (16.0-40.0) % King % (Auto) 9.6 (0.0-15.0) % Eos % (Auto) 1.9 (0.0-7.0) % Baso % (Auto) 0.2 (0.0-1.5) % Neut # (Auto) 3.7 (1.4-5.7) K/uL Lymph # (Auto) 0.9 (0.6-2.4) K/uL King # (Auto) 0.5 (0.0-0.8) K/uL Eos # (Auto) 0.1 (0.0-0.7) K/uL Baso # (Auto) 0.0 (0.0-0.1) K/uL Nucleated RBC % 0.0 /100WBC Nucleated RBCs # 0 K/uL Sodium 141 (136-148) mmol/L Potassium 4.7 (3.5-5.1) mmol/L Chloride 106 (98-107) mmol/L Carbon Dioxide 27.0 (21.0-32.0) mmol/L BUN 28 H (7.0-18.0) mg/dL Creatinine 2.2 H (0.8-1.3) mg/dL Est Cr Clr Drug Dosing 24.18 mL/min Estimated GFR (MDRD) 28.7 ml/min Glucose 103 (74-106) mg/dL POC Glucose 137 H (70-99) mg/dL Calcium 8.3 L (8.5-10.1) mg/dL Phosphorus 3.3 (2.6-4.7) mg/dL Magnesium 1.9 (1.8-2.4) mg/dL Urine Color Urine Appearance Urine pH (5.0-8.0) Ur Specific [place] (1.001-1.035) Urine Protein (NEGATIVE) mg/dL Urine Glucose (UA) (NEGATIVE) mg/dL Urine Ketones (NEGATIVE) mg/dL Urine Occult Blood (NEGATIVE) Urine Nitrite (NEGATIVE) Urine Bilirubin (NEGATIVE) Urine Urobilinogen (<2.0) EU/dL Ur Leukocyte Esterase (NEGATIVE) 12/07/20 Range/Units 11:22 WBC (4.0-11.0) K/uL RBC (4.50-5.90) M/uL Hgb (13.0-17.0) g/dL Hct (38.0-50.0) % MCV (80.0-98.0) fL MCH (27.0-32.0) pg MCHC (31.0-37.0) g/dL RDW Std Deviation (28.0-62.0) fl RDW Coeff of Theresa (11.0-15.0) % Plt Count (150-400) K/uL MPV (7.40-12.00) fL Neut % (Auto) (48.0-80.0) % Lymph % (Auto) (16.0-40.0) % King % (Auto) (0.0-15.0) % Eos % (Auto) (0.0-7.0) % Baso % (Auto) (0.0-1.5) % Neut # (Auto) (1.4-5.7) K/uL Lymph # (Auto) (0.6-2.4) K/uL King # (Auto) (0.0-0.8) K/uL Eos # (Auto) (0.0-0.7) K/uL Baso # (Auto) (0.0-0.1) K/uL Nucleated RBC % /100WBC Nucleated RBCs # K/uL Sodium (136-148) mmol/L Potassium (3.5-5.1) mmol/L Chloride (98-107) mmol/L Carbon Dioxide (21.0-32.0) mmol/L BUN (7.0-18.0) mg/dL Creatinine (0.8-1.3) mg/dL Est Cr Clr Drug Dosing mL/min Estimated GFR (MDRD) ml/min Glucose (74-106) mg/dL POC Glucose 140 H (70-99) mg/dL Calcium (8.5-10.1) mg/dL Phosphorus (2.6-4.7) mg/dL Magnesium (1.8-2.4) mg/dL Urine Color Urine Appearance Urine pH (5.0-8.0) Ur Specific [place] (1.001-1.035) Urine Protein (NEGATIVE) mg/dL Urine Glucose (UA) (NEGATIVE) mg/dL Urine Ketones (NEGATIVE) mg/dL Urine Occult Blood (NEGATIVE) Urine Nitrite (NEGATIVE) Urine Bilirubin (NEGATIVE) Urine Urobilinogen (<2.0) EU/dL Ur Leukocyte Esterase (NEGATIVE) Med Orders - Current: Current Medications Acetaminophen (Acetaminophen 325 Mg Tab) 650 mg PO Q4H PRN PRN Reason: Pain (Mild 1-3)/fever Last Admin: 12/07/20 02:17 Dose: 650 mg Documented by: Albuterol/Ipratropium (Albuterol/Ipratropium 3.0-0.5 Mg/3 Ml Neb Soln) 3 ml NEB Q4HRRT PRN PRN Reason: Shortness Of Breath/wheezing Last Admin: 12/07/20 07:37 Dose: 3 ml Documented by: Artificial Tears (Carboxymethylcellulose Sodium 0.5% Ophth Soln 0.4 Ml Ud Box Of 30) 1 each EYEBOTH TID PRN PRN Reason: Dryness Atorvastatin Calcium (Atorvastatin 40 Mg Tab) 40 mg PO BEDTIME [facility] Last Admin: 12/06/20 21:38 Dose: 40 mg Documented by: Cholecalciferol (Cholecalciferol (Vitamin D3) 25 Mcg Tab) 50 mcg PO QPM [facility] Last Admin: 12/06/20 18:04 Dose: 25 mcg Documented by: Citalopram Hydrobromide (Citalopram 20 Mg Tab) 20 mg PO DAILY [facility] Last Admin: 12/07/20 09:16 Dose: 20 mg Documented by: Dextrose/Water (50% Dextrose In Water 50 Ml Syringe) 50 ml IVPUSH ASDIRECTED PRN PRN Reason: Hypoglycemia Diltiazem HCl (Diltiazem 25 Mg/5 Ml Sdv) 20 mg IVPUSH Q4H PRN PRN Reason: Tachycardia Furosemide (Furosemide 40 Mg Tab) 60 mg PO QPM [facility] Furosemide (Furosemide 40 Mg Tab) 40 mg PO QAM [facility] Glucagon (Glucagon,Human Recombinant 1 Mg Vial) 1 mg IM ASDIRECTED PRN PRN Reason: Hypoglycemia Heparin Sodium (Porcine) (Heparin Sodium 5,000 Units/Ml Vial) 5,000 units SUBCUT Q8H [facility] Last Admin: 12/07/20 06:45 Dose: 5,000 units Documented by: Levofloxacin/Dextrose 750 mg/ (Premix) 150 mls @ 150 mls/hr IV Q48H [facility] Metronidazole 500 mg/ Premix 100 mls @ 100 mls/hr IV Q6H [facility] Insulin Aspart (Insulin Aspart 100 Units/Ml 3 Ml Pen) 0 unit SUBCUT TIDAC [facility]; Protocol Last Admin: 12/07/20 11:32 Dose: Not Given Documented by: Levothyroxine Sodium (Levothyroxine 25 Mcg Tab) 25 mcg PO ACBREAKFAST [facility] Last Admin: 12/07/20 06:45 Dose: 25 mcg Documented by: Metoprolol Tartrate (Metoprolol Tartrate 50 Mg Tab) 100 mg PO BID [facility] Last Admin: 12/07/20 09:14 Dose: 100 mg Documented by: Mirtazapine (Mirtazapine 15 Mg Tab) 30 mg PO BEDTIME [facility] Last Admin: 12/06/20 21:38 Dose: 30 mg Documented by: Nystatin (Nystatin Topical Powder 15 Gm Bottle) 0 gm TOP QID [facility] Last Admin: 12/07/20 05:51 Dose: 1 applic Documented by: Ondansetron HCl (Ondansetron 4 Mg/2 Ml Sdv) 4 mg IVPUSH Q4H PRN PRN Reason: Nausea/Vomiting Psyllium Husk [ Metamucil] 660 Gm Powder 1 each PO QAM [facility] Last Admin: 12/07/20 09:18 Dose: Not Given Documented by: Prednisolone Acetate (Prednisolone Acetate 1% Ophth Susp 5 Ml Bottle) 1 ml EYERT TID [facility] Last Admin: 12/07/20 06:12 Dose: Not Given Documented by: Spironolactone (Spironolactone 25 Mg Tab) 25 mg PO DAILY [facility] Last Admin: 12/07/20 09:16 Dose: 25 mg Documented by: Tamsulosin HCl (Tamsulosin 0.4 Mg Cap.Er) 0.4 mg PO PCBREAKFAST [facility] Last Admin: 12/07/20 09:17 Dose: 0.4 mg Documented by: Discontinued Medications Aspirin (Aspirin 81 Mg Tab.Chew) 243 mg PO ONETIME ONE Stop: 12/05/20 14:15 Last Admin: 12/05/20 14:49 Dose: 243 mg Documented by: Enoxaparin Sodium (Enoxaparin 30 Mg/0.3 Ml Syringe) 30 mg SUBCUT Q24H [facility] Sodium Chloride (Normal Saline) 1,000 mls @ 999 mls/hr IV STAT ONE Stop: 12/05/20 14:53 Last Admin: 12/05/20 14:00 Dose: 999 mls/hr Documented by: Ceftriaxone Sodium/Dextrose 1 (gm/ Premix) 50 mls @ 100 mls/hr IV ONETIME ONE Stop: 12/05/20 17:43 Last Admin: 12/05/20 17:39 Dose: 100 mls/hr Documented by: Lactated Ringer's (Ringers, Lactated) 1,000 mls @ 125 mls/hr IV ASDIRECTED [facility] Last Admin: 12/07/20 05:50 Dose: 125 mls/hr Documented by: Levofloxacin/Dextrose 750 mg/ (Premix) 150 mls @ 100 mls/hr IV ONETIME ONE Stop: 12/05/20 20:29 Last Admin: 12/05/20 19:32 Dose: 100 mls/hr Documented by: Magnesium Sulfate 2 gm/ Premix 50 mls @ 12.5 mls/hr IV ONETIME ONE Stop: 12/06/20 02:47 Last Admin: 12/05/20 23:53 Dose: 12.5 mls/hr Documented by: Lactated Ringer's (Ringers, Lactated) 1,000 mls @ 999 mls/hr IV .BOLUS ONE Stop: 12/06/20 00:25 Last Admin: 12/05/20 23:54 Dose: 999 mls/hr Documented by: Metronidazole 500 mg/ Premix 100 mls @ 100 mls/hr IV QID [facility] Last Admin: 12/07/20 09:43 Dose: 100 mls/hr Documented by: Metoprolol Tartrate (Metoprolol Tartrate 50 Mg Tab) 100 mg PO ONETIME ONE Stop: 12/05/20 20:01 Last Admin: 12/05/20 20:03 Dose: 100 mg Documented by: Sodium Chloride (Sodium Chloride 0.9% 2.5 Ml Syringe) 2.5 ml FLUSH ASDIRECTED PRN PRN Reason: Keep Vein Open Last Admin: 12/05/20 14:00 Dose: 2.5 ml Documented by: Sodium Chloride (Sodium Chloride 0.9% 10 Ml Syringe) 10 ml FLUSH ASDIRECTED PRN PRN Reason: Keep Vein Open Last Admin: 12/05/20 14:00 Dose: 10 ml Documented by: Tamsulosin HCl (Tamsulosin 0.4 Mg Cap.Er) 0.4 mg PO PCBREAKFAST JACOB - Exam Urinary Catheter Total Time: 0Days 0Hours General: Alert, Oriented, Cooperative, No Acute Distress Lungs: Crackles (Bibasilar) Cardiovascular: Regular Rate, Regular Rhythm GI/Abdominal Exam: Normal Bowel Sounds, Soft, Tender (Scant tenderness to right lower quadrant with palpation otherwise no abdominal pain) Extremities: Normal Inspection, Normal Range of Motion, Non-Tender, No Pedal Edema Neurological: No New Focal Deficit Psy/Mental Status: Alert, Normal Affect, Normal Mood - Patient Data Lab Results Last 24 hrs: Laboratory Results - last 24 hr 12/06/20 12/06/20 12/06/20 Range/Units 12:20 16:58 22:00 WBC (4.0-11.0) K/uL RBC (4.50-5.90) M/uL Hgb (13.0-17.0) g/dL Hct (38.0-50.0) % MCV (80.0-98.0) fL MCH (27.0-32.0) pg MCHC (31.0-37.0) g/dL RDW Std Deviation (28.0-62.0) fl RDW Coeff of Theresa (11.0-15.0) % Plt Count (150-400) K/uL MPV (7.40-12.00) fL Neut % (Auto) (48.0-80.0) % Lymph % (Auto) (16.0-40.0) % King % (Auto) (0.0-15.0) % Eos % (Auto) (0.0-7.0) % Baso % (Auto) (0.0-1.5) % Neut # (Auto) (1.4-5.7) K/uL Lymph # (Auto) (0.6-2.4) K/uL King # (Auto) (0.0-0.8) K/uL Eos # (Auto) (0.0-0.7) K/uL Baso # (Auto) (0.0-0.1) K/uL Nucleated RBC % /100WBC Nucleated RBCs # K/uL Sodium (136-148) mmol/L Potassium (3.5-5.1) mmol/L Chloride (98-107) mmol/L Carbon Dioxide (21.0-32.0) mmol/L BUN (7.0-18.0) mg/dL Creatinine (0.8-1.3) mg/dL Est Cr Clr Drug Dosing mL/min Estimated GFR (MDRD) ml/min Glucose (74-106) mg/dL POC Glucose 133 H 95 (70-99) mg/dL Calcium (8.5-10.1) mg/dL Phosphorus (2.6-4.7) mg/dL Magnesium (1.8-2.4) mg/dL Urine Color YELLOW Urine Appearance CLEAR Urine pH 6.0 (5.0-8.0) Ur Specific [place] 1.015 (1.001-1.035) Urine Protein NEGATIVE (NEGATIVE) mg/dL Urine Glucose (UA) NEGATIVE (NEGATIVE) mg/dL Urine Ketones NEGATIVE (NEGATIVE) mg/dL Urine Occult Blood NEGATIVE (NEGATIVE) Urine Nitrite NEGATIVE (NEGATIVE) Urine Bilirubin NEGATIVE (NEGATIVE) Urine Urobilinogen 0.2 (<2.0) EU/dL Ur Leukocyte Esterase NEGATIVE (NEGATIVE) 12/07/20 12/07/20 12/07/20 Range/Units 05:34 05:34 08:44 WBC 5.23 (4.0-11.0) K/uL RBC 3.43 L (4.50-5.90) M/uL Hgb 10.8 L (13.0-17.0) g/dL Hct 33.8 L (38.0-50.0) % MCV 98.5 H (80.0-98.0) fL MCH 31.5 (27.0-32.0) pg MCHC 32.0 (31.0-37.0) g/dL RDW Std Deviation 53.6 (28.0-62.0) fl RDW Coeff of Theresa 15 (11.0-15.0) % Plt Count 168 (150-400) K/uL MPV 9.40 (7.40-12.00) fL Neut % (Auto) 71.5 (48.0-80.0) % Lymph % (Auto) 16.8 (16.0-40.0) % King % (Auto) 9.6 (0.0-15.0) % Eos % (Auto) 1.9 (0.0-7.0) % Baso % (Auto) 0.2 (0.0-1.5) % Neut # (Auto) 3.7 (1.4-5.7) K/uL Lymph # (Auto) 0.9 (0.6-2.4) K/uL King # (Auto) 0.5 (0.0-0.8) K/uL Eos # (Auto) 0.1 (0.0-0.7) K/uL Baso # (Auto) 0.0 (0.0-0.1) K/uL Nucleated RBC % 0.0 /100WBC Nucleated RBCs # 0 K/uL Sodium 141 (136-148) mmol/L Potassium 4.7 (3.5-5.1) mmol/L Chloride 106 (98-107) mmol/L Carbon Dioxide 27.0 (21.0-32.0) mmol/L BUN 28 H (7.0-18.0) mg/dL Creatinine 2.2 H (0.8-1.3) mg/dL Est Cr Clr Drug Dosing 24.18 mL/min Estimated GFR (MDRD) 28.7 ml/min Glucose 103 (74-106) mg/dL POC Glucose 137 H (70-99) mg/dL Calcium 8.3 L (8.5-10.1) mg/dL Phosphorus 3.3 (2.6-4.7) mg/dL Magnesium 1.9 (1.8-2.4) mg/dL Urine Color Urine Appearance Urine pH (5.0-8.0) Ur Specific [place] (1.001-1.035) Urine Protein (NEGATIVE) mg/dL Urine Glucose (UA) (NEGATIVE) mg/dL Urine Ketones (NEGATIVE) mg/dL Urine Occult Blood (NEGATIVE) Urine Nitrite (NEGATIVE) Urine Bilirubin (NEGATIVE) Urine Urobilinogen (<2.0) EU/dL Ur Leukocyte Esterase (NEGATIVE) 12/07/20 Range/Units 11:22 WBC (4.0-11.0) K/uL RBC (4.50-5.90) M/uL Hgb (13.0-17.0) g/dL Hct (38.0-50.0) % MCV (80.0-98.0) fL MCH (27.0-32.0) pg MCHC (31.0-37.0) g/dL RDW Std Deviation (28.0-62.0) fl RDW Coeff of Theresa (11.0-15.0) % Plt Count (150-400) K/uL MPV (7.40-12.00) fL Neut % (Auto) (48.0-80.0) % Lymph % (Auto) (16.0-40.0) % King % (Auto) (0.0-15.0) % Eos % (Auto) (0.0-7.0) % Baso % (Auto) (0.0-1.5) % Neut # (Auto) (1.4-5.7) K/uL Lymph # (Auto) (0.6-2.4) K/uL King # (Auto) (0.0-0.8) K/uL Eos # (Auto) (0.0-0.7) K/uL Baso # (Auto) (0.0-0.1) K/uL Nucleated RBC % /100WBC Nucleated RBCs # K/uL Sodium (136-148) mmol/L Potassium (3.5-5.1) mmol/L Chloride (98-107) mmol/L Carbon Dioxide (21.0-32.0) mmol/L BUN (7.0-18.0) mg/dL Creatinine (0.8-1.3) mg/dL Est Cr Clr Drug Dosing mL/min Estimated GFR (MDRD) ml/min Glucose (74-106) mg/dL POC Glucose 140 H (70-99) mg/dL Calcium (8.5-10.1) mg/dL Phosphorus (2.6-4.7) mg/dL Magnesium (1.8-2.4) mg/dL Urine Color Urine Appearance Urine pH (5.0-8.0) Ur Specific [place] (1.001-1.035) Urine Protein (NEGATIVE) mg/dL Urine Glucose (UA) (NEGATIVE) mg/dL Urine Ketones (NEGATIVE) mg/dL Urine Occult Blood (NEGATIVE) Urine Nitrite (NEGATIVE) Urine Bilirubin (NEGATIVE) Urine Urobilinogen (<2.0) EU/dL Ur Leukocyte Esterase (NEGATIVE) Result Diagrams: 12/07/20 05:34 12/07/20 05:34 Sepsis Event Note - Evaluation Sepsis Screening Result: No Definite Risk - Focused Exam Vital Signs: Vital Signs Temp Pulse Pulse Resp BP BP Pulse Ox 12/07/20 09:14 78 146/67 H 12/07/20 07:15 97.8 F 78 20 146/67 H 94 L 12/07/20 05:00 97.8 F 78 16 124/60 94 L 12/07/20 00:00 92 L 12/06/20 23:50 97.7 F 79 20 133/59 L 87 L - Problem List & Annotations (1) Obstructive nephropathy SNOMED Code(s): 53364234 Code(s): N13.8 - OTHER OBSTRUCTIVE AND REFLUX UROPATHY Status: Acute Current Visit: Yes (2) Acute kidney injury superimposed on CKD SNOMED Code(s): 22189371 Code(s): N17.9 - ACUTE KIDNEY FAILURE, UNSPECIFIED; N18.9 - CHRONIC KIDNEY DISEASE, UNSPECIFIED Status: Acute Current Visit: Yes (3) Appendicitis SNOMED Code(s): 60309044 Code(s): K37 - UNSPECIFIED APPENDICITIS Status: Acute Current Visit: Yes (4) Chest pain, unspecified SNOMED Code(s): 76629224 Code(s): R07.9 - CHEST PAIN, UNSPECIFIED Status: Acute Current Visit: Yes Qualifiers: Chest pain type: unspecified Qualified Code(s): R07.9 - Chest pain, unspecified (5) Chronic kidney disease SNOMED Code(s): 576616049 Code(s): N18.9 - CHRONIC KIDNEY DISEASE, UNSPECIFIED Status: Acute Current Visit: Yes Qualifiers: Chronic kidney disease stage: unspecified stage Qualified Code(s): N18.9 - Chronic kidney disease, unspecified (6) Community acquired pneumonia SNOMED Code(s): 126582005 Code(s): J18.9 - PNEUMONIA, UNSPECIFIED ORGANISM Status: Acute Current Visit: Yes Qualifiers: Laterality: left Lung location: lower lobe of lung Qualified Code(s): J 18.9 - Pneumonia, unspecified organism (7) Generalized weakness SNOMED Code(s): 34103064 Code(s): R53.1 - WEAKNESS Status: Acute Current Visit: Yes (8) Urinary retention SNOMED Code(s): 249816796 Code(s): R33.9 - RETENTION OF URINE, UNSPECIFIED Status: Acute Current Visit: Yes (9) Atrial fibrillation SNOMED Code(s): 83886373 Code(s): I48.91 - UNSPECIFIED ATRIAL FIBRILLATION Status: Acute Current Visit: No (10) TIA (transient ischemic attack) SNOMED Code(s): 516639686, 290058976 Code(s): G45.9 - TRANSIENT CEREBRAL ISCHEMIC ATTACK, UNSPECIFIED Status: Acute Priority: High Current Visit: No Qualifiers: Transient cerebral ischemia type: other Qualified Code(s): G45.8 - Other transient cerebral ischemic attacks and related syndromes (11) DM type 2 (diabetes mellitus, type 2) SNOMED Code(s): 47425589 Code(s): E11.9 - TYPE 2 DIABETES MELLITUS WITHOUT COMPLICATIONS Status: Chronic Priority: Medium Current Visit: No Qualifiers: Diabetes mellitus complication status: with other specified complication Qualified Code(s): E11.69 - Type 2 diabetes mellitus with other specified complication (12) Dyslipidemia SNOMED Code(s): 235833061 Code(s): E78.5 - HYPERLIPIDEMIA, UNSPECIFIED Status: Chronic Priority: Low Current Visit: No (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 SNOMED Code(s): 795102186005410 Code(s): H02.105 - UNSPECIFIED ECTROPION OF LEFT LOWER EYELID Status: Chronic Priority: High Current Visit: No (14) HTN (hypertension) SNOMED Code(s): 01339408 Code(s): I10 - ESSENTIAL (PRIMARY) HYPERTENSION Status: Chronic Priority: Medium Current Visit: No Qualifiers: Hypertension type: essential hypertension Qualified Code(s): I10 - Essential (primary) hypertension - Problem List Review Problem List Initiated/Reviewed/Updated: Yes - My Orders Last 24 Hours: My Active Orders 12/06/20 14:00 prednisoLONE acetate [Pred Forte 1% Ophth Susp] 1 ml EYERT TID 12/06/20 18:00 Cholecalciferol (Vitamin D3) [Vitamin D3] 50 mcg PO QPM 12/06/20 21:00 Mirtazapine [Remeron] 30 mg PO BEDTIME atorvaSTATin [Lipitor] 40 mg PO BEDTIME 12/07/20 07:30 Levothyroxine 25 mcg PO ACBREAKFAST 12/07/20 08:52 Consult to Physician [CONS] Routine 12/07/20 08:53 Notify Provider Consults [RC] ASDIRECTED 12/07/20 09:00 Citalopram [Celexa] 20 mg PO DAILY Patient's Own Medication [Ptom] 1 each PO QAM Spironolactone [Aldactone] 25 mg PO DAILY 12/07/20 Lunch Heart Healthy Diet [DIET] 12/07/20 11:48 Sodium Chloride 0.9% [Saline Flush] 2.5 ml FLUSH ASDIRECTED PRN Saline Lock Insert [OM.PC] Routine 12/07/20 16:00 metroNIDAZOLE/Normal Saline [Flagyl in NS 500 MG/100 ML] 500 mg Premix Bag 1 bag IV Q6H 12/08/20 09:00 Furosemide [Lasix] 40 mg PO QAM 12/08/20 18:00 Furosemide [Lasix] 60 mg PO QPM - Plan Plan:: 85-year-old male admitted for A. fib with RVR and community-acquired pneumonia 1. A. fib with RVR -Rate controlled currently -Continue home medications of metoprolol -Not on any anticoagulation due to history of GI bleeding - Monitor magnesium and potassium replaced daily 2. CAP -Continue Levaquin every 48 hours -Not requiring any oxygen. 3. CASSIE on CKD/obstructive uropathy -Continue to have urinary retention with obstructive uropathy Silverio placed o vernight we will continue to monitor renal function. -Send referral for urology as outpatient patient reports he is not able to make it to [place] but willing to go to [place]. -Avoid nephrotoxic medications 4. Appendicitis, early questionable -Has no fevers chills and no leukocytosis -CT noted possible early appendicitis. Spoke with Dr. Mike Hernandez he will see patient this afternoon but reports likely no intervention needed at this time -We will start Flagyl along with Levaquin already going for community-acquired pneumonia -Continue diet as patient has no abdominal pain 5. HTN/CAD/TIA/CHF/DM type II -We will restart Lasix in a.m. stop fluids today -Continue all home medications -[employer] sliding scale with meals VTE prophylaxis: Heparin CODE STATUS: DNR/DNI Dispo: Likely in a.m.
[2020-12-07] MEDS: metroNIDAZOLE/Normal Saline 500 MG in Premix Bag 1 BAG IV SCH ×2 (17:00→21:52)
[2020-12-07] MEDS: Cholecalciferol (Vitamin D3) 25 MCG Tab PO SCH (18:01)
[2020-12-07] MEDS: atorvaSTATin 40 MG Tab PO SCH (20:29)
[2020-12-07] MEDS: Levofloxacin/Dextrose 5%-Water 750 MG in Premix Bag 1 BAG IV SCH (20:30)
[2020-12-07] MEDS: Mirtazapine 15 MG Tab PO SCH (20:30)
[2020-12-08] MEDS: Nystatin Topical Powder 15 GM Bottle TOP SCH ×5 (00:16→23:24)
[2020-12-08] MEDS: Acetaminophen 325 MG Tab PO PRN (02:19)
[2020-12-08] MEDS: metroNIDAZOLE/Normal Saline 500 MG in Premix Bag 1 BAG IV SCH ×4 (04:00→21:35)
[2020-12-08] MEDS: Levothyroxine 25 MCG Tab PO SCH (06:33)
[2020-12-08] MEDS: Heparin Sodium 5,000 Units/ML Vial SUBCUT SCH ×3 (06:33→21:34)
[2020-12-08] MEDS: prednisoLONE Acetate 1% Ophth Susp 5 ML Bottle EYERT SCH ×3 (06:51→21:35)
[2020-12-08 06:53] LABS: CARBON DIOXIDE,CO2 25.6 mmol/L (21.0-32.0); POTASSIUM,K 5.2 mmol/L (3.5-5.1)
[2020-12-08] MEDS: Insulin Aspart 100 Units/ML 3 ML Pen SUBCUT SCH ×3 (07:09→17:19)
--- NOTE | 2020-12-08 07:21 | CONS ---
DATE OF CONSULTATION: 12/07/2020 DATE OF : 1935 PRIMARY CARE PHYSICIAN: Harry Pacheco MD HISTORY OF PRESENT ILLNESS: The patient is a pleasant 85-year-old gentleman who was admitted to the hospital 2 days ago because of chest pain. The patient says he gets chest pain off and on. He came to the ER for evaluation and was found to have atrial fibrillation . He was admitted to the hospital for evaluation. The patient says since then his chest pain has gone away and he is feeling much better. However, yesterday he developed some urinary retention and a Silverio catheter had to be placed. Because of the Silverio catheter and urinary retention, they did do a CT scan of his abdomen, which showed a dilated appendix, which could represent a developing appendicitis. The patient denies any abdominal pain. He is sitting very comfortably in his room. He is eating diet and he is feeling very good. He is on some antibiotics already because of pneumonia. Surgical team has been asked to evaluate for this incidental finding of dilated appendix on CT scan. The patient has not had any elevated white cell count. The patient has had some loose stools, but he says he thinks it is because he is not taking his Metamucil. The patient says he takes Metamucil to help with his loose stools. The patient denies any nausea or vomiting. Again, the patient denies any abdominal pain. PAST MEDICAL HISTORY: 1. Significant for history of atrial fibrillation. 2. Hypertension. 3. Hyperlipidemia. 4. History of TIA. 5. Congestive heart failure. 6. Chronic kidney disease. 7. History of CA. 8. 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 9. Type 2 diabetes. PAST SURGICAL HISTORY: 1. TURP. 2. Cataract surgery. 3. Multiple hernia repairs in the past. 4. 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 FAMILY HISTORY: 1. He reports his mother had heart failure. 2. Father had CA. ALLERGIES: Penicillin. CURRENT HOME MEDICATIONS: 1. Levothyroxine 25 mcg p.o. daily. 2. Celexa 20 mg p.o. daily. 3. Remeron 2 tablets p.o. at bedtime. 4. Spironolactone 100 mg p.o. daily. 5. Lasix 40 mg p.o. daily. 6. Metamucil daily. 7. Metoprolol 100 mg p.o. b.i.d. 8. Losartan 25 mg p.o. daily. 9. Furosemide 60 mg p.o. daily. 10.Atorvastatin 40 mg p.o. daily. 11.Flomax 0.4 mg p.o. daily. 12.Glimepiride 1 mg p.o. daily. SOCIAL HISTORY: The patient denies any current tobacco use, alcohol use, or illicit drug use. PHYSICAL EXAMINATION: GENERAL: The patient is sitting comfortably in his chair. He is eating. He is in no acute distress. VITAL SIGNS: Temperature is 96.3, pulse is 80, blood pressure is 141/55, saturating 92% on room air. HEENT: Head is normocephalic. 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 LUNGS: Clear to auscultation bilaterally. HEART: Currently irregular rhythm. No murmur appreciated. ABDOMEN: Soft and nondistended. The patient has some slight tenderness to deep palpation on his left abdomen. This is very minimal. No rebound. No guarding. LABORATORY DATA: White cell count is 5.23, hemoglobin is 10.8, platelet count is 168. Sodium 141, potassium 4.7, chloride is 106, BUN is 28, creatinine 2.2, glucose is 140. IMAGING: Again, the patient has a dilated appendix with some mild periappendiceal inflammatory changes, which they report may represent developing appendicitis. There is colonic diverticulosis. The patient also has a thickened irregular- appearing bladder with multiple bladder diverticula. ASSESSMENT AND PLAN: The patient is a pleasant 85-year-old gentleman who was hospitalized 2 days ago with chest pain and atrial fibrillation, this has since been controlled, and he also has been admitted for pneumonia. Currently, the patient is feeling very well. He has no complaints other than having his Silverio, which was placed for urine retention. He did have a CT scan, which showed a dilated appendix with potentially some inflammatory changes; however, currently, the patient has no right lower quadrant pain and maybe some very minimal left with very deep palpation, which the patient said he actually often has some left lower abdominal pain. He has had no white cell count. The patient has consult because of potential appendicitis, although I feel this is fairly low given no right lower quadrant pain and no white cell count. I told the patient the only way to be 100% sure is to take the appendix out; however, I feel this is fairly low yield and the risks outweigh the benefits given the patient's multiple comorbidities. The patient agrees. He does not want to have any laparoscopic appendectomy. If he develops right lower quadrant pain or white cell count or any nausea or vomiting, he should come right back. I did discuss with the hospital team. He will continue to be treated for his urinary retention and his pneumonia and his atrial fibrillation. Surgery team will sign off for now, but please let us know if there is anything else we can help out with in the care of this patient. ALISSA MCKEON /[id number]
[2020-12-08] MEDS: Metoprolol Tartrate 50 MG Tab PO SCH ×2 (08:51→20:50)
[2020-12-08] MEDS: Tamsulosin 0.4 MG Cap.ER PO SCH (08:51)
[2020-12-08] MEDS: Furosemide 40 MG Tab PO SCH ×2 (08:52→17:18)
[2020-12-08] MEDS: Citalopram 20 MG Tab PO SCH (08:52)
[2020-12-08] MEDS: Spironolactone 25 MG Tab PO SCH (08:52)
[2020-12-08] MEDS: PSYLLIUM HUSK 660 GM PO SCH (08:54)
--- NOTE | 2020-12-08 11:39 | PCM.DCSUM1 ---
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 Patient reports that yesterday evening the symptoms began but he did not think he needed to go to the hospital as the symptoms were not as severe. Patient reports that this morning he was trying to get into a vehicle he felt very tired and fatigued and was not able to stand up for long duration of time. Patient states that he has some ongoing cough for last few days also states that he might not be drinking and eating as much for the past few days. Patient states that his chest feels heavy since this morning. Patient has taken 1 baby aspirin this morning. Patient denies fever, chills, headache, neck stiff ness, change in vision, syncope, or near syncope. Denies nausea, vomiting, abdominal pain, diarrhea, constipation, or dysuria. Has not noted any blood in urine or stool. In the ER patient was found to be in A. fib/a flutter with heart rate in 140s. Patient received some IV fluid hydration which helped improving his heart rate. Troponin was negative, EKG was unremarkable for any acute ischemic findings. Chest x-ray was significant for possible community-acquired pneumonia. Patient was admitted for further management - Discharge Data Discharge Date: 12/08/20 Discharge Disposition: Home, Home Health Agency 06 Condition: Good - Referral to Home Health Date of Face to Face Encounter: 12/08/20 Reason for Homebound Status: Tyler is homebound needing assistance to leave the house with caregiver and assistive device to go to appointments due to unsteady gait and new indwelling bruno catheter. Primary Care Physician: Harry Pacheco MD Skilled Need: Tyler is in need of prison care to help monitor signs and symptoms of CHF including VS and weight. He also is in need of bruno cares and education on emptying bruno catheter. He would benefit from PT/OT to evaluate and treat for unsteady gait and deconditioning secondary to recent hospitalization and acute illness. He would also benefit from home safety evaluation from OT. - Discharge Diagnosis/Problem(s) (1) Obstructive nephropathy SNOMED Code(s): 35852633 ICD Code: N13.8 - OTHER OBSTRUCTIVE AND REFLUX UROPATHY Status: Acute Current Visit: Yes (2) Acute kidney injury superimposed on CKD SNOMED Code(s): 75828826 ICD Code: N17.9 - ACUTE KIDNEY FAILURE, UNSPECIFIED; N18.9 - CHRONIC KIDNEY DISEASE, UNSPECIFIED Status: Acute Current Visit: Yes (3) Appendicitis SNOMED Code(s): 27510387 ICD Code: K37 - UNSPECIFIED APPENDICITIS Status: Acute Current Visit: Yes (4) Chest pain, unspecified SNOMED Code(s): 37531647 ICD Code: R07.9 - CHEST PAIN, UNSPECIFIED Status: Acute Current Visit: Yes Qualifiers: Chest pain type: unspecified Qualified Code(s): R07.9 - Chest pain, unspecified (5) Chronic kidney disease SNOMED Code(s): 745875860 ICD Code: N18.9 - CHRONIC KIDNEY DISEASE, UNSPECIFIED Status: Acute Current Visit: Yes Qualifiers: Chronic kidney disease stage: unspecified stage Qualified Code(s): N18.9 - Chronic kidney disease, unspecified (6) Community acquired pneumonia SNOMED Code(s): 036752608 ICD Code: J18.9 - PNEUMONIA, UNSPECIFIED ORGANISM Status: Acute Current Visit: Yes Qualifiers: Laterality: left Lung location: lower lobe of lung Qualified Code(s): J18.9 - Pneumonia, unspecified organism (7) Generalized weakness SNOMED Code(s): 44919987 ICD Code: R53.1 - WEAKNESS Status: Acute Current Visit: Yes (8) Urinary retention SNOMED Code(s): 126840088 ICD Code: R33.9 - RETENTION OF URINE, UNSPECIFIED Status: Acute Current Visit: Yes (9) Atrial fibrillation SNOMED Code(s): 38961035 ICD Code: I48.91 - UNSPECIFIED ATRIAL FIBRILLATION Status: Acute Current Visit: No (10) TIA (transient ischemic attack) SNOMED Code(s): 839194181, 375590023 ICD Code: G45.9 - TRANSIENT CEREBRAL ISCHEMIC ATTACK, UNSPECIFIED Status: Acute Priority: High Current Visit: No Qualifiers: Transient cerebral ischemia type: other Qualified Code(s): G45.8 - Other transient cerebral ischemic attacks and related syndromes (11) DM type 2 (diabetes mellitus, type 2) SNOMED Code(s): 40335723 ICD Code: E11.9 - TYPE 2 DIABETES MELLITUS WITHOUT COMPLICATIONS Status: Chronic Priority: Medium Current Visit: No Qualifiers: Diabetes mellitus complication status: with other specified complication Qualified Code(s): E11.69 - Type 2 diabetes mellitus with other specified complication (12) Dyslipidemia SNOMED Code(s): 998977530 ICD Code: E78.5 - HYPERLIPIDEMIA, UNSPECIFIED Status: Chronic Priority: Low Current Visit: No (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 fib RVR CASSIE on CKD Discharge diagnoses Atypical chest pain CAP A. fib RVR CASSIE on CKD Obstructive uropathy Other PMH DM type II hypertension CAD Blindness Tyler was admitted secondary to atypical chest pain which has since resolved. A. fib resolved with 1 dose of diltiazem. Patient continued on his home dose of metoprolol and is not on anticoagulation due to past medical history of GI bleeding. Echo pending on discharge. he was noted that he had left lower lung infiltrate versus atelectasis. He was started on Levaquin at that time. Upon admission CASSIE was noted he does have a history of CKD. He was treated with IV fluids later on the following day he was noted to be retaining urine. Patient was straight cathed x1 and patient continued to retain so Bruno catheter was placed. Patient does have a history of a TURP. Once Bruno catheter was placed CASSIE continue to resolve quickly. CT of the belly was obtained which revealed bilateral perinephric stranding without evidence of hydronephrosis or hydroureter no distal obstructing calculus. There was somewhat prominent appendix measuring up to 1 cm which could represent developing uncomplicated appendicitis. Patient having no symptoms no fevers no chills no abdominal pain. Patient has been eating well. Dr. Mike Hernandez was consulted felt no surgical intervention was needed at this time due to patient clinical symptoms did not match. Patient was started on Flagyl along with Levaquin. Patient continued to tolerate diet well. 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 No free air or fluid within the abdomen. Bruno catheter was kept in place. IV fluids were stopped and patient was restarted on his home Lasix dosing. Patient doing well today continues to have Bruno in place. No abdominal pain eating and drinking well. Patient is somewhat reluctant to go home as he reports him and his will have difficulties with Bruno catheter. Patient will be discharged home with home health along with his any needles which she has agreed has helped in the past and he is willing to pay for private caregivers to help empty Bruno catheter. He will be educated on Bruno catheter prior to discharge. He was reassured that visiting [facility] have been contacted by case management as well as home health will help. Patient will be set up with port cdl a driver, PCP as well as urologist as outpatient follow-ups. Bruno catheter to remain in place at this time. PCP may consider urinary trial but patient appeared here to have CASSIE secondary to obstructive uropathy so voiding trial was not attempted. Patient is to return to the ER clinic if concerns should arise. He is especially counseled on returning if abdominal pain were to start or he started having fevers and chills and poor appetite. He verbalized understanding. Patient to be discharged home today with home health. - Patient Instructions Diet: Heart Healthy Diet, Diabetic Diet Activity: As Tolerated, No Strenuous Activities Driving: Do Not Drive Showering/Bathing: May Shower Notify Provider of: Fever, Increased Pain, Swelling and Redness, Drainage, Nausea and/or Vomiting Other/Special Instructions: If you develop abdominal pain or fevers please seek medical evaluation promptly - Discharge Plan *PRESCRIPTION DRUG MONITORING PROGRAM REVIEWED*: Not Applicable *COPY OF PRESCRIPTION DRUG MONITORING REPORT IN PATIENT COLIN: Not Applicable Prescriptions/Med Rec: metroNIDAZOLE [Flagyl] 500 mg PO Q8H #24 tab levoFLOXacin [Levaquin] 750 mg PO Q48H #3 tab Home Medications: Home Meds Losartan Potassium 25 mg PO DAILY 02/23/14 [History] Metoprolol Tartrate 100 mg PO BID 02/23/14 [History] atorvaSTATin Calcium [Atorvastatin Calcium] 40 mg PO BEDTIME 02/23/14 [History] Tamsulosin [Flomax] 0.4 mg PO PCBREAKFAST 30 Days #30 cap.er 07/29/19 [Rx] Cholecalciferol (Vitamin D3) [Vitamin D3] 2,000 unit PO QPM 03/23/20 [History] Furosemide [Lasix] 40 mg PO QAM 03/23/20 [History] Levothyroxine 25 mcg PO ACBREAKFAST 03/23/20 [History] Loperamide [Imodium] 2 mg PO BEDTIME 03/23/20 [History] PEG 400/Hypromellose/Glycerin [Artificial Tears Drops] 1 drop EYEBOTH ASDIRECTED PRN 03/23/20 [History] Prednisolone Acetate/Pf [Prednisolone Acet 1% Eye Drop] 1 drop EYERT TID 03/23/20 [History] Psyllium Husk [Metamucil] 2 tbsp PO QAM 03/23/20 [History] Spironolactone [Aldactone] 25 mg PO DAILY 03/23/20 [History] Citalopram Hydrobromide [Celexa] 20 mg PO DAILY 12/06/20 [History] Furosemide 60 mg PO QPM 12/06/20 [History] Glimepiride 1 mg PO DAILY 12/06/20 [History] Linagliptin [Tradjenta] 5 mg PO DAILY 12/06/20 [History] Mirtazapine [Remeron] 2 tab PO BEDTIME 12/06/20 [History] levoFLOXacin [Levaquin] 750 mg PO Q48H #3 tab 12/08/20 [Rx] metroNIDAZOLE [Flagyl] 500 mg PO Q8H #24 tab 12/08/20 [Rx] Oxygen Therapy Mode: Room Air Patient Handouts: Indwelling Urinary Catheter Care, Adult, Community-Acquired Pneumonia, Adult Referrals: Harleen Appiah MD [Physician] - 12/29/20 2:30 pm Harry Pacheco MD [Primary Care Provider] - 12/20/20 12:30 pm - Discharge Summary/Plan Comment DC Time >30 min.: No - Patient Data Vitals - Most Recent: Last Vital Signs Temp 98.1 F 12/08/20 08:00 Pulse 98 12/08/20 08:51 Resp 16 12/08/20 08:00 BP 110/55 L 12/08/20 08:51 Pulse Ox 95 12/08/20 09:01 Weight - Most Recent: 88.632 kg I&O - Last 24 hours: Intake & Output 12/07/20 12/08/20 12/08/20 22:59 06:59 14:59 Intake Total 480 550 Output Total 400 450 Balance 80 100 Lab Results - Last 24 hrs: Laboratory Results - last 24 hr 12/07/20 12/08/20 12/08/20 Range/Units 17:58 05:30 05:30 WBC 6.65 (4.0-11.0) K/uL RBC 3.30 L (4.50-5.90) M/uL Hgb 10.8 L (13.0-17.0) g/dL Hct 32.8 L (38.0-50.0) % MCV 99.4 H (80.0-98.0) fL MCH 32.7 H (27.0-32.0) pg MCHC 32.9 (31.0-37.0) g/dL RDW Std Deviation 50.6 (28.0-62.0) fl RDW Coeff of Theresa 14 (11.0-15.0) % Plt Count 161 (150-400) K/uL MPV 9.10 (7.40-12.00) fL Neut % (Auto) 83.0 H (48.0-80.0) % Lymph % (Auto) 9.6 L (16.0-40.0) % Sebastian % (Auto) 7.2 (0.0-15.0) % Eos % (Auto) 0.2 (0.0-7.0) % Baso % (Auto) 0.0 (0.0-1.5) % Neut # (Auto) 5.5 (1.4-5.7) K/uL Lymph # (Auto) 0.6 (0.6-2.4) K/uL Sebastian # (Auto) 0.5 (0.0-0.8) K/uL Eos # (Auto) 0.0 (0.0-0.7) K/uL Baso # (Auto) 0.0 (0.0-0.1) K/uL Sodium 139 (136-148) mmol/L Potassium 5.2 H (3.5-5.1) mmol/L Chloride 105 (98-107) mmol/L Carbon Dioxide 25.6 (21.0-32.0) mmol/L BUN 24 H (7.0-18.0) mg/dL Creatinine 2.1 H (0.8-1.3) mg/dL Est Cr Clr Drug Dosing 25.43 mL/min Estimated GFR (MDRD) 30.2 ml/min Glucose 138 H (74-106) mg/dL POC Glucose 155 H (70-99) mg/dL Calcium 8.2 L (8.5-10.1) mg/dL Med Orders - Current: Current Medications Acetaminophen (Acetaminophen 325 Mg Tab) 650 mg PO Q4H PRN PRN Reason: Pain (Mild 1-3)/fever Last Admin: 12/08/20 02:19 Dose: 650 mg Documented by: Albuterol/Ipratropium (Albuterol/Ipratropium 3.0-0.5 Mg/3 Ml Neb Soln) 3 ml NEB Q4HRRT PRN PRN Reason: Shortness Of Breath/wheezing Last Admin: 12/07/20 20:40 Dose: 3 ml Documented by: Artificial Tears (Carboxymethylcellulose Sodium 0.5% Ophth Soln 0.4 Ml Ud Box Of 30) 1 each EYEBOTH TID PRN PRN Reason: Dryness Atorvastatin Calcium (Atorvastatin 40 Mg Tab) 40 mg PO BEDTIME [facility] Last Admin: 12/07/20 20:29 Dose: 40 mg Documented by: Cholecalciferol (Cholecalciferol (Vitamin D3) 25 Mcg Tab) 50 mcg PO QPM JACOB Last Admin: 12/07/20 18:01 Dose: 25 mcg Documented by: Citalopram Hydrobromide (Citalopram 20 Mg Tab) 20 mg PO DAILY [facility] Last Admin: 12/08/20 08:52 Dose: 20 mg Documented by: Dextrose/Water (50% Dextrose In Water 50 Ml Syringe) 50 ml IVPUSH ASDIRECTED PRN PRN Reason: Hypoglycemia Diltiazem HCl (Diltiazem 25 Mg/5 Ml Sdv) 20 mg IVPUSH Q4H PRN PRN Reason: Tachycardia Furosemide (Furosemide 40 Mg Tab) 60 mg PO QPM [facility] Furosemide (Furosemide 40 Mg Tab) 40 mg PO QAM [facility] Last Admin: 12/08/20 08:52 Dose: 40 mg Documented by: Glucagon (Glucagon,Human Recombinant 1 Mg Vial) 1 mg IM ASDIRECTED PRN PRN Reason: Hypoglycemia Heparin Sodium (Porcine) (Heparin Sodium 5,000 Units/Ml Vial) 5,000 units SUBCUT Q8H [facility] Last Admin: 12/08/20 06:33 Dose: 5,000 units Documented by: Levofloxacin/Dextrose 750 mg/ (Premix) 150 mls @ 150 mls/hr IV Q48H [facility] Last Admin: 12/07/20 20:30 Dose: 150 mls/hr Documented by: Metronidazole 500 mg/ Premix 100 mls @ 100 mls/hr IV Q6H [facility] Last Admin: 12/08/20 09:09 Dose: 100 mls/hr Documented by: Insulin Aspart (Insulin Aspart 100 Units/Ml 3 Ml Pen) 0 unit SUBCUT TIDAC [facility]; Protocol Last Admin: 12/08/20 07:09 Dose: Not Given Documented by: Levothyroxine Sodium (Levothyroxine 25 Mcg Tab) 25 mcg PO ACBREAKFAST [facility] Last Admin: 12/08/20 06:33 Dose: 25 mcg Documented by: Metoprolol Tartrate (Metoprolol Tartrate 50 Mg Tab) 100 mg PO BID [facility] Last Admin: 12/08/20 08:51 Dose: 100 mg Documented by: Mirtazapine (Mirtazapine 15 Mg Tab) 30 mg PO BEDTIME [facility] Last Admin: 12/07/20 20:30 Dose: 30 mg Documented by: Nystatin (Nystatin Topical Powder 15 Gm Bottle) 0 gm TOP QID [facility] Last Admin: 12/08/20 06:34 Dose: 1 applic Documented by: Ondansetron HCl (Ondansetron 4 Mg/2 Ml Sdv) 4 mg IVPUSH Q4H PRN PRN Reason: Nausea/Vomiting Psyllium Husk [ Metamucil] 660 Gm Powder 1 each PO QAM [facility] Last Admin: 12/08/20 08:54 Dose: Not Given Documented by: Prednisolone Acetate (Prednisolone Acetate 1% Ophth Susp 5 Ml Bottle) 1 ml EYERT TID [facility] Last Admin: 12/08/20 06:51 Dose: 1 drop Documented by: Sodium Chloride (Sodium Chloride 0.9% 2.5 Ml Syringe) 2.5 ml FLUSH ASDIRECTED PRN PRN Reason: Keep Vein Open Spironolactone (Spironolactone 25 Mg Tab) 25 mg PO DAILY [facility] Last Admin: 12/08/20 08:52 Dose: 25 mg Documented by: Tamsulosin HCl (Tamsulosin 0.4 Mg Cap.Er) 0.4 mg PO PCBREAKFAST [facility] Last Admin: 12/08/20 08:51 Dose: 0.4 mg Documented by: Discontinued Medications Aspirin (Aspirin 81 Mg Tab.Chew) 243 mg PO ONETIME ONE Stop: 12/05/20 14:15 Last Admin: 12/05/20 14:49 Dose: 243 mg Documented by: Enoxaparin Sodium (Enoxaparin 30 Mg/0.3 Ml Syringe) 30 mg SUBCUT Q24H [facility] Sodium Chloride (Normal Saline) 1,000 mls @ 999 mls/hr IV STAT ONE Stop: 12/05/20 14:53 Last Admin: 12/05/20 14:00 Dose: 999 mls/hr Documented by: Ceftriaxone Sodium/Dextrose 1 (gm/ Premix) 50 mls @ 100 mls/hr IV ONETIME ONE Stop: 12/05/20 17:43 Last Admin: 12/05/20 17:39 Dose: 100 mls/hr Documented by: Lactated Ringer's (Ringers, Lactated) 1,000 mls @ 125 mls/hr IV ASDIRECTED [facility] Last Admin: 12/07/20 05:50 Dose: 125 mls/hr Documented by: Levofloxacin/Dextrose 750 mg/ (Premix) 150 mls @ 100 mls/hr IV ONETIME ONE Stop: 12/05/20 20:29 Last Admin: 12/05/20 19:32 Dose: 100 mls/hr Documented by: Magnesium Sulfate 2 gm/ Premix 50 mls @ 12.5 mls/hr IV ONETIME ONE Stop: 12/06/20 02:47 Last Admin: 12/05/20 23:53 Dose: 12.5 mls/hr Documented by: Lactated Ringer's (Ringers, Lactated) 1,000 mls @ 999 mls/hr IV .BOLUS ONE Stop: 12/06/20 00:25 Last Admin: 12/05/20 23:54 Dose: 999 mls/hr Documented by: Metronidazole 500 mg/ Premix 100 mls @ 100 mls/hr IV QID [facility] Last Admin: 12/07/20 09:43 Dose: 100 mls/hr Documented by: Metoprolol Tartrate (Metoprolol Tartrate 50 Mg Tab) 100 mg PO ONETIME ONE Stop: 12/05/20 20:01 Last Admin: 12/05/20 20:03 Dose: 100 mg Documented by: Sodium Chloride (Sodium Chloride 0.9% 2.5 Ml Syringe) 2.5 ml FLUSH ASDIRECTED PRN PRN Reason: Keep Vein Open Last Admin: 12/05/20 14:00 Dose: 2.5 ml Documented by: Sodium Chloride (Sodium Chloride 0.9% 10 Ml Syringe) 10 ml FLUSH ASDIRECTED PRN PRN Reason: Keep Vein Open Last Admin: 12/05/20 14:00 Dose: 10 ml Documented by: Tamsulosin HCl (Tamsulosin 0.4 Mg Cap.Er) 0.4 mg [facility]
--- NOTE | 2020-12-08 12:34 | PCM.PN ---
- General Info Date of Service: 12/08/20 Admission Dx/Problem (Free Text): Admission Diagnosis/Problem Admission Diagnosis/Problem Chest pain in adult Subjective Update: Patient feeling okay today very hesitant about going home regarding Silverio. After further investigation patient unwilling to assist patient with care of Silverio as he has very difficult time seeing with his vision concerns to empty the catheter. Contact with home health as was the visiting Leelee leaves nobody available until next week for help within the home. Patient denies any chest pain no shortness of breath today we will continue to monitor today and evaluate ability to void. Functional Status: Reports: Pain Controlled, Tolerating Diet, Ambulating, Urinat ing - Review of Systems General: Reports: No Symptoms. Denies: Weakness, Fatigue, Malaise HEENT: Reports: No Symptoms. Denies: Headaches, Sore Throat, Visual Changes Pulmonary: Reports: No Symptoms. Denies: Shortness of Breath Cardiovascular: Reports: No Symptoms. Denies: Chest Pain Gastrointestinal: Reports: No Symptoms. Denies: Abdominal Pain, Nausea, Vomiting Genitourinary: Reports: No Symptoms Musculoskeletal: Reports: No Symptoms Skin: Reports: No Symptoms Neurological: Reports: No Symptoms Psychiatric: Reports: No Symptoms - Patient Data Vitals - Most Recent: Last Vital Signs Temp 98.1 F 12/08/20 08:00 Pulse 98 12/08/20 08:51 Resp 16 12/08/20 08:00 BP 110/55 L 12/08/20 08:51 Pulse Ox 95 12/08/20 09:01 Weight - Most Recent: 88.632 kg I&O - Last 24 Hours: Intake & Output 12/07/20 12/08/20 12/08/20 22:59 06:59 14:59 Intake Total 480 550 Output Total 400 450 Balance 80 100 Lab Results Last 24 Hours: Laboratory Results - last 24 hr 12/07/20 12/08/20 12/08/20 Range/Units 17:58 05:30 05:30 WBC 6.65 (4.0-11.0) K/uL RBC 3.30 L (4.50-5.90) M/uL Hgb 10.8 L (13.0-17.0) g/dL Hct 32.8 L (38.0-50.0) % MCV 99.4 H (80.0-98.0) fL MCH 32.7 H (27.0-32.0) pg MCHC 32.9 (31.0-37.0) g/dL RDW Std Deviation 50.6 (28.0-62.0) fl RDW Coeff of Theresa 14 (11.0-15.0) % Plt Count 161 (150-400) K/uL MPV 9.10 (7.40-12.00) fL Neut % (Auto) 83.0 H (48.0-80.0) % Lymph % (Auto) 9.6 L (16.0-40.0) % [place] % (Auto) 7.2 (0.0-15.0) % Eos % (Auto) 0.2 (0.0-7.0) % Baso % (Auto) 0.0 (0.0-1.5) % Neut # (Auto) 5.5 (1.4-5.7) K/uL Lymph # (Auto) 0.6 (0.6-2.4) K/uL [place] # (Auto) 0.5 (0.0-0.8) K/uL Eos # (Auto) 0.0 (0.0-0.7) K/uL Baso # (Auto) 0.0 (0.0-0.1) K/uL Sodium 139 (136-148) mmol/L Potassium 5.2 H (3.5-5.1) mmol/L Chloride 105 (98-107) mmol/L Carbon Dioxide 25.6 (21.0-32.0) mmol/L BUN 24 H (7.0-18.0) mg/dL Creatinine 2.1 H (0.8-1.3) mg/dL Est Cr Clr Drug Dosing 25.43 mL/min Estimated GFR (MDRD) 30.2 ml/min Glucose 138 H (74-106) mg/dL POC Glucose 155 H (70-99) mg/dL Calcium 8.2 L (8.5-10.1) mg/dL 12/08/20 Range/Units 11:40 WBC (4.0-11.0) K/uL RBC (4.50-5.90) M/uL Hgb (13.0-17.0) g/dL Hct (38.0-50.0) % MCV (80.0-98.0) fL MCH (27.0-32.0) pg MCHC (31.0-37.0) g/dL RDW Std Deviation (28.0-62.0) fl RDW Coeff of Theresa (11.0-15.0) % Plt Count (150-400) K/uL MPV (7.40-12.00) fL Neut % (Auto) (48.0-80.0) % Lymph % (Auto) (16.0-40.0) % [place] % (Auto) (0.0-15.0) % Eos % (Auto) (0.0-7.0) % Baso % (Auto) (0.0-1.5) % Neut # (Auto) (1.4-5.7) K/uL Lymph # (Auto) (0.6-2.4) K/uL [place] # (Auto) (0.0-0.8) K/uL Eos # (Auto) (0.0-0.7) K/uL Baso # (Auto) (0.0-0.1) K/uL Sodium (136-148) mmol/L Potassium (3.5-5.1) mmol/L Chloride (98-107) mmol/L Carbon Dioxide (21.0-32.0) mmol/L BUN (7.0-18.0) mg/dL Creatinine (0.8-1.3) mg/dL Est Cr Clr Drug Dosing mL/min Estimated GFR (MDRD) ml/min Glucose (74-106) mg/dL POC Glucose 190 H (70-99) mg/dL Calcium (8.5-10.1) mg/dL Med Orders - Current: Current Medications Acetaminophen (Acetaminophen 325 Mg Tab) 650 mg PO Q4H PRN PRN Reason: Pain (Mild 1-3)/fever Last Admin: 12/08/20 02:19 Dose: 650 mg Documented by: Albuterol/Ipratropium (Albuterol/Ipratropium 3.0-0.5 Mg/3 Ml Neb Soln) 3 ml NEB Q4HRRT PRN PRN Reason: Shortness Of Breath/wheezing Last Admin: 12/07/20 20:40 Dose: 3 ml Documented by: Artificial Tears (Carboxymethylcellulose Sodium 0.5% Ophth Soln 0.4 Ml Ud Box Of 30) 1 each EYEBOTH TID PRN PRN Reason: Dryness Atorvastatin Calcium (Atorvastatin 40 Mg Tab) 40 mg PO BEDTIME [facility] Last Admin: 12/07/20 20:29 Dose: 40 mg Documented by: Cholecalciferol (Cholecalciferol (Vitamin D3) 25 Mcg Tab) 50 mcg PO QPM [facility] Last Admin: 12/07/20 18:01 Dose: 25 mcg Documented by: Citalopram Hydrobromide (Citalopram 20 Mg Tab) 20 mg PO DAILY [facility] Last Admin: 12/08/20 08:52 Dose: 20 mg Documented by: Dextrose/Water (50% Dextrose In Water 50 Ml Syringe) 50 ml IVPUSH ASDIRECTED PRN PRN Reason: Hypoglycemia Diltiazem HCl (Diltiazem 25 Mg/5 Ml Sdv) 20 mg IVPUSH Q4H PRN PRN Reason: Tachycardia Finasteride (Finasteride 5 Mg Tab) 5 mg PO DAILY [facility] Furosemide (Furosemide 40 Mg Tab) 60 mg PO QPM JACOB Furosemide (Furosemide 40 Mg Tab) 40 mg PO QAM [facility] Last Admin: 12/08/20 08:52 Dose: 40 mg Documented by: Glucagon (Glucagon,Human Recombinant 1 Mg Vial) 1 mg IM ASDIRECTED PRN PRN Reason: Hypoglycemia Heparin Sodium (Porcine) (Heparin Sodium 5,000 Units/Ml Vial) 5,000 units SUBCU T Q8H [facility] Last Admin: 12/08/20 06:33 Dose: 5,000 units Documented by: Levofloxacin/Dextrose 750 mg/ (Premix) 150 mls @ 150 mls/hr IV Q48H [facility] Last Admin: 12/07/20 20:30 Dose: 150 mls/hr Documented by: Metronidazole 500 mg/ Premix 100 mls @ 100 mls/hr IV Q6H [facility] Last Admin: 12/08/20 09:09 Dose: 100 mls/hr Documented by: Insulin Aspart (Insulin Aspart 100 Units/Ml 3 Ml Pen) 0 unit SUBCUT TIDAC [facility]; Protocol Last Admin: 12/08/20 07:09 Dose: Not Given Documented by: Levothyroxine Sodium (Levothyroxine 25 Mcg Tab) 25 mcg PO ACBREAKFAST [facility] Last Admin: 12/08/20 06:33 Dose: 25 mcg Documented by: Metoprolol Tartrate (Metoprolol Tartrate 50 Mg Tab) 100 mg PO BID [facility] Last Admin: 12/08/20 08:51 Dose: 100 mg Documented by: Mirtazapine (Mirtazapine 15 Mg Tab) 30 mg PO BEDTIME [facility] Last Admin: 12/07/20 20:30 Dose: 30 mg Documented by: Nystatin (Nystatin Topical Powder 15 Gm Bottle) 0 gm TOP QID [facility] Last Admin: 12/08/20 06:34 Dose: 1 applic Documented by: Ondansetron HCl (Ondansetron 4 Mg/2 Ml Sdv) 4 mg IVPUSH Q4H PRN PRN Reason: Nausea/Vomiting Psyllium Husk [ Metamucil] 660 Gm Powder 1 each PO QAM [facility] Last Admin: 12/08/20 08:54 Dose: Not Given Documented by: Prednisolone Acetate (Prednisolone Acetate 1% Ophth Susp 5 Ml Bottle) 1 ml EYERT TID [facility] Last Admin: 12/08/20 06:51 Dose: 1 drop Documented by: Sodium Chloride (Sodium Chloride 0.9% 2.5 Ml Syringe) 2.5 ml FLUSH ASDIRECTED PRN PRN Reason: Keep Vein Open Spironolactone (Spironolactone 25 Mg Tab) 25 mg PO DAILY [facility] Last Admin: 12/08/20 08:52 Dose: 25 mg Documented by: Tamsulosin HCl (Tamsulosin 0.4 Mg Cap.Er) 0.4 mg PO PCBREAKFAST [facility] Last Admin: 12/08/20 08:51 Dose: 0.4 mg Documented by: Discontinued Medications Aspirin (Aspirin 81 Mg Tab.Chew) 243 mg PO ONETIME ONE Stop: 12/05/20 14:15 Last Admin: 12/05/20 14:49 Dose: 243 mg Documented by: Enoxaparin Sodium (Enoxaparin 30 Mg/0.3 Ml Syringe) 30 mg SUBCUT Q24H [facility] Sodium Chloride (Normal Saline) 1,000 mls @ 999 mls/hr IV STAT ONE Stop: 12/05/20 14:53 Last Admin: 12/05/20 14:00 Dose: 999 mls/hr Documented by: Ceftriaxone Sodium/Dextrose 1 (gm/ Premix) 50 mls @ 100 mls/hr IV ONETIME ONE Stop: 12/05/20 17:43 Last Admin: 12/05/20 17:39 Dose: 100 mls/hr Documented by: Lactated Ringer's (Ringers, Lactated) 1,000 mls @ 125 mls/hr IV ASDIRECTED [facility] Last Admin: 12/07/20 05:50 Dose: 125 mls/hr Documented by: Levofloxacin/Dextrose 750 mg/ (Premix) 150 mls @ 100 mls/hr IV ONETIME ONE Stop: 12/05/20 20:29 Last Admin: 12/05/20 19:32 Dose: 100 mls/hr Documented by: Magnesium Sulfate 2 gm/ Premix 50 mls @ 12.5 mls/hr IV ONETIME ONE Stop: 12/06/20 02:47 Last Admin: 12/05/20 23:53 Dose: 12.5 mls/hr Documented by: Lactated Ringer's (Ringers, Lactated) 1,000 mls @ 999 mls/hr IV .BOLUS ONE Stop: 12/06/20 00:25 Last Admin: 12/05/20 23:54 Dose: 999 mls/hr Documented by: Metronidazole 500 mg/ Premix 100 mls @ 100 mls/hr IV QID [facility] Last Admin: 12/07/20 09:43 Dose: 100 mls/hr Documented by: Metoprolol Tartrate (Metoprolol Tartrate 50 Mg Tab) 100 mg PO ONETIME ONE Stop: 12/05/20 20:01 Last Admin: 12/05/20 20:03 Dose: 100 mg Documented by: Sodium Chloride (Sodium Chloride 0.9% 2.5 Ml Syringe) 2.5 ml FLUSH ASDIRECTED PRN PRN Reason: Keep Vein Open Last Admin: 12/05/20 14:00 Dose: 2.5 ml Documented by: Sodium Chloride (Sodium Chloride 0.9% 10 Ml Syringe) 10 ml FLUSH ASDIRECTED PRN PRN Reason: Keep Vein Open Last Admin: 12/05/20 14:00 Dose: 10 ml Documented by: Tamsulosin HCl (Tamsulosin 0.4 Mg Cap.Er) 0.4 mg PO PCBREAKFAST JACOB - Exam Quality Assessment: Urine Catheter, DVT Prophylaxis. No: Supplemental Oxygen Urinary Catheter Total Time: 0Days 0Hours General: Alert, Oriented, Cooperative, No Acute Distress Lungs: Clear to Auscultation, Normal Respiratory Effort Cardiovascular: Regular Rate, Irregular Rhythm GI/Abdominal Exam: Normal Bowel Sounds, Soft, Non-Tender Extremities: Normal Inspection, Normal Range of Motion, Non-Tender, No Pedal Edema Neurological: No New Focal Deficit Psy/Mental Status: Alert, Normal Affect, Normal Mood - Patient Data Lab Results Last 24 hrs: Laboratory Results - last 24 hr 12/07/20 12/08/20 12/08/20 Range/Units 17:58 05:30 05:30 WBC 6.65 (4.0-11.0) K/uL RBC 3.30 L (4.50-5.90) M/uL Hgb 10.8 L (13.0-17.0) g/dL Hct 32.8 L (38.0-50.0) % MCV 99.4 H (80.0-98.0) fL MCH 32.7 H (27.0-32.0) pg MCHC 32.9 (31.0-37.0) g/dL RDW Std Deviation 50.6 (28.0-62.0) fl RDW Coeff of Theresa 14 (11.0-15.0) % Plt Count 161 (150-400) K/uL MPV 9.10 (7.40-12.00) fL Neut % (Auto) 83.0 H (48.0-80.0) % Lymph % (Auto) 9.6 L (16.0-40.0) % [place] % (Auto) 7.2 (0.0-15.0) % Eos % (Auto) 0.2 (0.0-7.0) % Baso % (Auto) 0.0 (0.0-1.5) % Neut # (Auto) 5.5 (1.4-5.7) K/uL Lymph # (Auto) 0.6 (0.6-2.4) K/uL [place] # (Auto) 0.5 (0.0-0.8) K/uL Eos # (Auto) 0.0 (0.0-0.7) K/uL Baso # (Auto) 0.0 (0.0-0.1) K/uL Sodium 139 (136-148) mmol/L Potassium 5.2 H (3.5-5.1) mmol/L Chloride 105 (98-107) mmol/L Carbon Dioxide 25.6 (21.0-32.0) mmol/L BUN 24 H (7.0-18.0) mg/dL Creatinine 2.1 H (0.8-1.3) mg/dL Est Cr Clr Drug Dosing 25.43 mL/min Estimated GFR (MDRD) 30.2 ml/min Glucose 138 H (74-106) mg/dL POC Glucose 155 H (70-99) mg/dL Calcium 8.2 L (8.5-10.1) mg/dL 12/08/20 Range/Units 11:40 WBC (4.0-11.0) K/uL RBC (4.50-5.90) M/uL Hgb (13.0-17.0) g/dL Hct (38.0-50.0) % MCV (80.0-98.0) fL MCH (27.0-32.0) pg MCHC (31.0-37.0) g/dL RDW Std Deviation (28.0-62.0) fl RDW Coeff of Theresa (11.0-15.0) % Plt Count (150-400) K/uL MPV (7.40-12.00) fL Neut % (Auto) (48.0-80.0) % Lymph % (Auto) (16.0-40.0) % [place] % (Auto) (0.0-15.0) % Eos % (Auto) (0.0-7.0) % Baso % (Auto) (0.0-1.5) % Neut # (Auto) (1.4-5.7) K/uL Lymph # (Auto) (0.6-2.4) K/uL [place] # (Auto) (0.0-0.8) K/uL Eos # (Auto) (0.0-0.7) K/uL Baso # (Auto) (0.0-0.1) K/uL Sodium (136-148) mmol/L Potassium (3.5-5.1) mmol/L Chloride (98-107) mmol/L Carbon Dioxide (21.0-32.0) mmol/L BUN (7.0-18.0) mg/dL Creatinine (0.8-1.3) mg/dL Est Cr Clr Drug Dosing mL/min Estimated GFR (MDRD) ml/min Glucose (74-106) mg/dL POC Glucose 190 H (70-99) mg/dL Calcium (8.5-10.1) mg/dL Result Diagrams: 12/08/20 05:30 12/08/20 05:30 Sepsis Event Note - Evaluation Sepsis Screening Result: No Definite Risk - Focused Exam Vital Signs: Vital Signs Temp Pulse Pulse Resp BP BP Pulse Ox 12/08/20 09:01 12/08/20 08:51 98 110/55 L 12/08/20 08:00 98.1 F 98 16 110/55 L 93 L 12/08/20 04:03 97.7 F 86 17 130/63 92 L Pulse Ox 12/08/20 09:01 95 12/08/20 08:51 12/08/20 08:00 12/08/20 04:03 - Problem List & Annotations (1) Obstructive nephropathy SNOMED Code(s): 93552580 Code(s): N13.8 - OTHER OBSTRUCTIVE AND REFLUX UROPATHY Status: Acute Current Visit: Yes (2) Acute kidney injury superimposed on CKD SNOMED Code(s): 56908664 Code(s): N17.9 - ACUTE KIDNEY FAILURE, UNSPECIFIED; N18.9 - CHRONIC KIDNEY DISEASE, UNSPECIFIED Status: Acute Current Visit: Yes (3) Appendicitis SNOMED Code(s): 52880157 Code(s): K37 - UNSPECIFIED APPENDICITIS Status: Acute Current Visit: Yes (4) Chest pain, unspecified SNOMED Code(s): 32990682 Code(s): R07.9 - CHEST PAIN, UNSPECIFIED Status: Acute Current Visit: Yes Qualifiers: Chest pain type: unspecified Qualified Code(s): R07.9 - Chest pain, unspecified (5) Chronic kidney disease SNOMED Code(s): 901763196 Code(s): N18.9 - CHRONIC KIDNEY DISEASE, UNSPECIFIED Status: Acute Current Visit: Yes Qualifiers: Chronic kidney disease stage: unspecified stage Qualified Code(s): N18.9 - Chronic kidney disease, unspecified (6) Community acquired pneumonia SNOMED Code(s): 786077597 Code(s): J18.9 - PNEUMONIA, UNSPECIFIED ORGANISM Status: Acute Current Visit: Yes Qualifiers: Laterality: left Lung location: lower lobe of lung Qualified Code(s): J18.9 - Pneumonia, unspecified organism (7) Generalized weakness SNOMED Code(s): 45592076 Code(s): R53.1 - WEAKNESS Status: Acute Current Visit: Yes (8) Urinary retention SNOMED Code(s): 594513286 Code(s): R33.9 - RETENTION OF URINE, UNSPECIFIED Status: Acute Current Visit: Yes (9) Atrial fibrillation SNOMED Code(s): 36443372 Code(s): I48.91 - UNSPECIFIED ATRIAL FIBRILLATION Status: Acute Current Visit: No (10) TIA (transient ischemic attack) SNOMED Code(s): 369120596, 398744270 Code(s): G45.9 - TRANSIENT CEREBRAL ISCHEMIC ATTACK, UNSPECIFIED Status: Acute Priority: High Current Visit: No Qualifiers: Transient cerebral ischemia type: other Qualified Code(s): G45.8 - Other transient cerebral ischemic attacks and related syndromes (11) DM type 2 (diabetes mellitus, type 2) SNOMED Code(s): 24261534 Code(s): E11.9 - TYPE 2 DIABETES MELLITUS WITHOUT COMPLICATIONS Status: Chronic Priority: Medium Current Visit: No Qualifiers: Diabetes mellitus complication status: with other specified complication Qualified Code(s): E11.69 - Type 2 diabetes mellitus with other specified complication (12) Dyslipidemia SNOMED Code(s): 845447669 Code(s): E78.5 - HYPERLIPIDEMIA, UNSPECIFIED Status: Chronic Priority: Low Current Visit: No (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 SNOMED Code(s): 443944379778918 Code(s): H02.105 - UNSPECIFIED ECTROPION OF LEFT LOWER EYELID Status: Chronic Priority: High Current Visit: No (14) HTN (hypertension) SNOMED Code(s): 22842088 Code(s): I10 - ESSENTIAL (PRIMARY) HYPERTENSION Status: Chronic Priority: Medium Current Visit: No Qualifiers: Hypertension type: essential hypertension Qualified Code(s): I10 - Essential (primary) hypertension - Problem List Review Problem List Initiated/Reviewed/Updated: Yes - My Orders Last 24 Hours: My Active Orders 12/07/20 11:48 Sodium Chloride 0.9% [Saline Flush] 2.5 ml FLUSH ASDIRECTED PRN Saline Lock Insert [OM.PC] Routine 12/07/20 11:59 Resuscitation Status Routine 12/07/20 16:00 metroNIDAZOLE/Normal Saline [Flagyl in NS 500 MG/100 ML] 500 mg Premix Bag 1 bag IV Q6H 12/08/20 09:00 Furosemide [Lasix] 40 mg PO QAM 12/08/20 09:06 May Shower [RC] ASDIRECTED 12/08/20 12:24 Remove Silverio Catheter [Urinary Catheter Removal] [RC] PER UNIT ROUTINE 12/08/20 12:26 Post Void Residual [OM.PC] Routine 12/08/20 12:28 Communication Order [RC] PRN 12/08/20 12:29 Communication Order [RC] PRN 12/08/20 12:30 Finasteride [Proscar] 5 mg PO DAILY 12/08/20 18:00 Furosemide [Lasix] 60 mg PO QPM 12/09/20 05:11 BMP [BASIC METABOLIC PANEL,BMP] [CHEM] AM CBC WITH AUTO DIFF [HEME] AM - Plan Plan:: 85-year-old male admitted for A. fib with RVR and community-acquired pneumonia 1. A. fib with RVR -Rate controlled currently -Continue home medications of metoprolol -Not on any anticoagulation due to history of GI bleeding - Monitor magnesium and potassium replaced daily 2. CAP -Continue Levaquin every 48 hours -Not requiring any oxygen. 3. CASSIE on CKD/obstructive uropathy -CASSIE steadily improving nearing baseline now. -We will remove Silverio today and monitor very closely for postvoid residuals as well as continued retention. -Send referral for urology as outpatient patient reports he is not able to make it to [place] but willing to go to [place]. -Avoid nephrotoxic medications -Continue Flomax we will add finasteride 5 mg p.o. daily 4. Appendicitis, early questionable -Has no fevers chills and no leukocytosis -CT noted possible early appendicitis. Spoke with Dr. Mike Hernandez he will see patient this afternoon but reports likely no intervention needed at this time -Continue Flagyl along with Levaquin already going for community-acquired pneumonia -Continue diet as patient has no abdominal pain 5. HTN/CAD/TIA/CHF/DM type II -Restart home Lasix 40 in a.m. and 16 p.m. -Continue all home medications -Novo[employer] sliding scale with meals VTE prophylaxis: Heparin CODE STATUS: DNR/DNI Dispo: Discharge was set up for today. Case management spoke with as well as visiting [place] and home health. is unwilling to assist patient with Silverio cares or really any cares at home at this time. Home health and visiting [place] are unavailable to assist patient until early next week. It is quite a safety concern to send patient home with Silverio catheter that he is unable to empty appropriately or care for appropriately due to chronic vision concerns. Plan for today will be to keep patient and monitor closely. We will remove Silverio catheter today and attempt to possibly to send patient home without catheter in the next day or 2. We will monitor postvoid residuals closely and will need to replace catheter if residuals greater than 400. We will also start finasteride 5 mg daily.
[2020-12-08] MEDS: Finasteride 5 MG Tab PO SCH (13:07)
[2020-12-08] MEDS: Cholecalciferol (Vitamin D3) 25 MCG Tab PO SCH (17:18)
[2020-12-08] MEDS: atorvaSTATin 40 MG Tab PO SCH (20:50)
[2020-12-08] MEDS: Mirtazapine 15 MG Tab PO SCH (23:24)
[2020-12-09] MEDS: metroNIDAZOLE/Normal Saline 500 MG in Premix Bag 1 BAG IV SCH ×4 (04:29→21:53)
[2020-12-09] MEDS: prednisoLONE Acetate 1% Ophth Susp 5 ML Bottle EYERT SCH ×3 (06:29→21:56)
[2020-12-09] MEDS: Heparin Sodium 5,000 Units/ML Vial SUBCUT SCH ×3 (06:29→21:54)
[2020-12-09] MEDS: Nystatin Topical Powder 15 GM Bottle TOP SCH ×4 (06:30→23:09)
[2020-12-09] MEDS: Levothyroxine 25 MCG Tab PO SCH (06:41)
[2020-12-09 06:42] LABS: CARBON DIOXIDE,CO2 27.6 mmol/L (21.0-32.0); POTASSIUM,K 4.5 mmol/L (3.5-5.1)
[2020-12-09] MEDS: Insulin Aspart 100 Units/ML 3 ML Pen SUBCUT SCH ×3 (07:38→17:38)
[2020-12-09] MEDS: Tamsulosin 0.4 MG Cap.ER PO SCH (08:14)
[2020-12-09] MEDS: Citalopram 20 MG Tab PO SCH (08:14)
[2020-12-09] MEDS: Finasteride 5 MG Tab PO SCH (08:14)
[2020-12-09] MEDS: Spironolactone 25 MG Tab PO SCH (08:14)
[2020-12-09] MEDS: Furosemide 40 MG Tab PO SCH ×2 (08:15→17:39)
[2020-12-09] MEDS: Metoprolol Tartrate 50 MG Tab PO SCH ×2 (08:31→20:03)
[2020-12-09] MEDS: PSYLLIUM HUSK 660 GM PO SCH (08:35)
[2020-12-09] MEDS ORDERED: Lactated Ringers 500 ML IV SCH (12:15)
--- NOTE | 2020-12-09 12:35 | PCM.PN ---
- General Info Date of Service: 12/09/20 Admission Dx/Problem (Free Text): Admission Diagnosis/Problem Admission Diagnosis/Problem Chest pain in adult Subjective Update: Patient seen at bedside, required to the straight cath overnight once due to urinary retention, denies any chest pain, shortness of breath. States that his neighbor will be able to take him to my not for urology follow-up upon discharge. Although his will be participating in any [facility] care. Per nursing patient eats okay but has not been drinking as much water Functional Status: Reports: Pain Controlled, Tolerating Diet - Review of Systems General: Reports: Weakness, Fatigue. Denies: Fever Pulmonary: Denies: Shortness of Breath, Pleuritic Chest Pain Cardiovascular: Denies: Chest Pain, Palpitations Gastrointestinal: Denies: Abdominal Pain, Constipation, Other Genitourinary: Reports: Incontinence, Retention. Denies: Dysuria, Frequency, Pain, Urgency, Hematuria Skin: Denies: Cyanosis, Jaundice, Mottled Neurological: Denies: Confusion, Dizziness, Headache - Patient Data Vitals - Most Recent: Last Vital Signs Temp 35.9 C L 12/09/20 08:00 Pulse 94 12/09/20 08:31 Resp 16 12/09/20 08:00 BP 156/78 H 12/09/20 08:31 Pulse Ox 95 12/09/20 08:00 Weight - Most Recent: 88.451 kg I&O - Last 24 Hours: Intake & Output 12/08/20 12/09/20 12/09/20 22:59 06:59 14:59 Intake Total 820 480 Output Total 750 670 Balance 70 -190 Lab Results Last 24 Hours: Laboratory Results - last 24 hr 12/08/20 12/09/20 12/09/20 Range/Units 16:59 06:15 06:15 WBC 6.17 (4.0-11.0) K/uL RBC 3.21 L (4.50-5.90) M/uL Hgb 10.4 L (13.0-17.0) g/dL Hct 31.9 L (38.0-50.0) % MCV 99.4 H (80.0-98.0) fL MCH 32.4 H (27.0-32.0) pg MCHC 32.6 (31.0-37.0) g/dL RDW Std Deviation 51.2 (28.0-62.0) fl RDW Coeff of Theresa 15 (11.0-15.0) % Plt Count 150 (150-400) K/uL MPV 8.80 (7.40-12.00) fL Neut % (Auto) 74.1 (48.0-80.0) % Lymph % (Auto) 14.3 L (16.0-40.0) % Mcminn % (Auto) 9.9 (0.0-15.0) % Eos % (Auto) 1.5 (0.0-7.0) % Baso % (Auto) 0.2 (0.0-1.5) % Neut # (Auto) 4.6 (1.4-5.7) K/uL Lymph # (Auto) 0.9 (0.6-2.4) K/uL Mcminn # (Auto) 0.6 (0.0-0.8) K/uL Eos # (Auto) 0.1 (0.0-0.7) K/uL Baso # (Auto) 0.0 (0.0-0.1) K/uL Sodium 139 (136-148) mmol/L Potassium 4.5 (3.5-5.1) mmol/L Chloride 107 (98-107) mmol/L Carbon Dioxide 27.6 (21.0-32.0) mmol/L BUN 23 H (7.0-18.0) mg/dL Creatinine 2.0 H (0.8-1.3) mg/dL Est Cr Clr Drug Dosing 26.70 mL/min Estimated GFR (MDRD) 32.0 ml/min Glucose 127 H (74-106) mg/dL POC Glucose 163 H (70-99) mg/dL Calcium 8.2 L (8.5-10.1) mg/dL 12/09/20 12/09/20 Range/Units 06:35 12:00 WBC (4.0-11.0) K/uL RBC (4.50-5.90) M/uL Hgb (13.0-17.0) g/dL Hct (38.0-50.0) % MCV (80.0-98.0) fL MCH (27.0-32.0) pg MCHC (31.0-37.0) g/dL RDW Std Deviation (28.0-62.0) fl RDW Coeff of Theresa (11.0-15.0) % Plt Count (150-400) K/uL MPV (7.40-12.00) fL Neut % (Auto) (48.0-80.0) % Lymph % (Auto) (16.0-40.0) % Mcminn % (Auto) (0.0-15.0) % Eos % (Auto) (0.0-7.0) % Baso % (Auto) (0.0-1.5) % Neut # (Auto) (1.4-5.7) K/uL Lymph # (Auto) (0.6-2.4) K/uL Mcminn # (Auto) (0.0-0.8) K/uL Eos # (Auto) (0.0-0.7) K/uL Baso # (Auto) (0.0-0.1) K/uL Sodium (136-148) mmol/L Potassium (3.5-5.1) mmol/L Chloride (98-107) mmol/L Carbon Dioxide (21.0-32.0) mmol/L BUN (7.0-18.0) mg/dL Creatinine (0.8-1.3) mg/dL Est Cr Clr Drug Dosing mL/min Estimated GFR (MDRD) ml/min Glucose (74-106) mg/dL POC Glucose 127 H 206 H (70-99) mg/dL Calcium (8.5-10.1) mg/dL Med Orders - Current: Current Medications Acetaminophen (Acetaminophen 325 Mg Tab) 650 mg PO Q4H PRN PRN Reason: Pain (Mild 1-3)/fever Last Admin: 12/08/20 02:19 Dose: 650 mg Documented by: Albuterol/Ipratropium (Albuterol/Ipratropium 3.0-0.5 Mg/3 Ml Neb Soln) 3 ml NEB Q4HRRT PRN PRN Reason: Shortness Of Breath/wheezing Last Admin: 12/07/20 20:40 Dose: 3 ml Documented by: Artificial Tears (Carboxymethylcellulose Sodium 0.5% Ophth Soln 0.4 Ml Ud Box Of 30) 1 each EYEBOTH TID PRN PRN Reason: Dryness Atorvastatin Calcium (Atorvastatin 40 Mg Tab) 40 mg PO BEDTIME [facility] Last Admin: 12/08/20 20:50 Dose: 40 mg Documented by: Cholecalciferol (Cholecalciferol (Vitamin D3) 25 Mcg Tab) 50 mcg PO QPM [facility] Last Admin: 12/08/20 17:18 Dose: 50 mcg Documented by: Citalopram Hydrobromide (Citalopram 20 Mg Tab) 20 mg PO DAILY [facility] Last Admin: 12/09/20 08:14 Dose: 20 mg Documented by: Dextrose/Water (50% Dextrose In Water 50 Ml Syringe) 50 ml IVPUSH ASDIRECTED PRN PRN Reason: Hypoglycemia Diltiazem HCl (Diltiazem 25 Mg/5 Ml Sdv) 20 mg IVPUSH Q4H PRN PRN Reason: Tachycardia Finasteride (Finasteride 5 Mg Tab) 5 mg PO DAILY [facility] Last Admin: 12/09/20 08:14 Dose: 5 mg Documented by: Furosemide (Furosemide 40 Mg Tab) 60 mg PO QPM [facility] Last Admin: 12/08/20 17:18 Dose: 60 mg Documented by: Furosemide (Furosemide 40 Mg Tab) 40 mg PO QAM [facility] Last Admin: 12/09/20 08:15 Dose: 40 mg Documented by: Glucagon (Glucagon,Human Recombinant 1 Mg Vial) 1 mg IM ASDIRECTED PRN PRN Reason: Hypoglycemia Heparin Sodium (Porcine) (Heparin Sodium 5,000 Units/Ml Vial) 5,000 units SUBCUT Q8H [facility] Last Admin: 12/09/20 06:29 Dose: 5,000 units Documented by: Levofloxacin/Dextrose 750 mg/ (Premix) 150 mls @ 150 mls/hr IV Q48H [facility] Last Admin: 12/07/20 20:30 Dose: 150 mls/hr Documented by: Metronidazole 500 mg/ Premix 100 mls @ 100 mls/hr IV Q6H [facility] Last Admin: 12/09/20 10:08 Dose: 100 mls/hr Documented by: Lactated Ringer's (Ringers, Lactated) 500 mls @ 999 mls/hr IV ASDIRECTED [facility] Insulin Aspart (Insulin Aspart 100 Units/Ml 3 Ml Pen) 0 unit SUBCUT TIDAC [facility]; Protocol Last Admin: 12/09/20 07:38 Dose: Not Given Documented by: Levothyroxine Sodium (Levothyroxine 25 Mcg Tab) 25 mcg PO ACBREAKFAST [facility] Last Admin: 12/09/20 06:41 Dose: 25 mcg Documented by: Metoprolol Tartrate (Metoprolol Tartrate 50 Mg Tab) 100 mg PO BID [facility] Last Admin: 12/09/20 08:31 Dose: 100 mg Documented by: Mirtazapine (Mirtazapine 15 Mg Tab) 30 mg PO BEDTIME [facility] Last Admin: 12/08/20 23:24 Dose: 30 mg Documented by: Nystatin (Nystatin Topical Powder 15 Gm Bottle) 0 gm TOP QID [facility] Last Admin: 12/09/20 06:30 Dose: 1 applic Documented by: Ondansetron HCl (Ondansetron 4 Mg/2 Ml Sdv) 4 mg IVPUSH Q4H PRN PRN Reason: Nausea/Vomiting Psyllium Husk [ Metamucil] 660 Gm Powder 1 each PO QAM [facility] Last Admin: 12/09/20 08:35 Dose: Not Given Documented by: Prednisolone Acetate (Prednisolone Acetate 1% Ophth Susp 5 Ml Bottle) 1 ml EYERT TID [facility] Last Admin: 12/09/20 06:29 Dose: 1 drop Documented by: Sodium Chloride (Sodium Chloride 0.9% 2.5 Ml Syringe) 2.5 ml FLUSH ASDIRECTED PRN PRN Reason: Keep Vein Open Spironolactone (Spironolactone 25 Mg Tab) 25 mg PO DAILY [facility] Last Admin: 12/09/20 08:14 Dose: 25 mg Documented by: Tamsulosin HCl (Tamsulosin 0.4 Mg Cap.Er) 0.4 mg PO PCBREAKFAST [facility] Last Admin: 12/09/20 08:14 Dose: 0.4 mg Documented by: Discontinued Medications Aspirin (Aspirin 81 Mg Tab.Chew) 243 mg PO ONETIME ONE Stop: 12/05/20 14:15 Last Admin: 12/05/20 14:49 Dose: 243 mg Documented by: Enoxaparin Sodium (Enoxaparin 30 Mg/0.3 Ml Syringe) 30 mg SUBCUT Q24H [facility] Sodium Chloride (Normal Saline) 1,000 mls @ 999 mls/hr IV STAT ONE Stop: 12/05/20 14:53 Last Admin: 12/05/20 14:00 Dose: 999 mls/hr Documented by: Ceftriaxone Sodium/Dextrose 1 (gm/ Premix) 50 mls @ 100 mls/hr IV ONETIME ONE Stop: 12/05/20 17:43 Last Admin: 12/05/20 17:39 Dose: 100 mls/hr Documented by: Lactated Ringer's (Ringers, Lactated) 1,000 mls @ 125 mls/hr IV ASDIRECTED [facility] Last Admin: 12/07/20 05:50 Dose: 125 mls/hr Documented by: Levofloxacin/Dextrose 750 mg/ (Premix) 150 mls @ 100 mls/hr IV ONETIME ONE Stop: 12/05/20 20:29 Last Admin: 12/05/20 19:32 Dose: 100 mls/hr Documented by: Magnesium Sulfate 2 gm/ Premix 50 mls @ 12.5 mls/hr IV ONETIME ONE Stop: 12/06/20 02:47 Last Admin: 12/05/20 23:53 Dose: 12.5 mls/hr Documented by: Lactated Ringer's (Ringers, Lactated) 1,000 mls @ 999 mls/hr IV .BOLUS ONE Stop: 12/06/20 00:25 Last Admin: 12/05/20 23:54 Dose: 999 mls/hr Documented by: Metronidazole 500 mg/ Premix 100 mls @ 100 mls/hr IV QID [facility] Last Admin: 12/07/20 09:43 Dose: 100 mls/hr Documented by: Metoprolol Tartrate (Metoprolol Tartrate 50 Mg Tab) 100 mg PO ONETIME ONE Stop: 12/05/20 20:01 Last Admin: 12/05/20 20:03 Dose: 100 mg Documented by: Sodium Chloride (Sodium Chloride 0.9% 2.5 Ml Syringe) 2.5 ml FLUSH ASDIRECTED PRN PRN Reason: Keep Vein Open Last Admin: 12/05/20 14:00 Dose: 2.5 ml Documented by: Sodium Chloride (Sodium Chloride 0.9% 10 Ml Syringe) 10 ml FLUSH ASDIRECTED PRN PRN Reason: Keep Vein Open Last Admin: 12/05/20 14:00 Dose: 10 ml Documented by: Tamsulosin HCl (Tamsulosin 0.4 Mg Cap.Er) 0.4 mg PO PCBREAKFAST JACOB - Exam Quality Assessment: Supplemental Oxygen Urinary Catheter Total Time: 0Days 0Hours General: Alert, Oriented Neck: Supple Lungs: Clear to Auscultation, Normal Respiratory Effort Cardiovascular: Regular Rate, Regular Rhythm GI/Abdominal Exam: Normal Bowel Sounds, Soft, Non-Tender Back Exam: Normal Inspection Extremities: Normal Inspection, Normal Range of Motion - Patient Data Lab Results Last 24 hrs: Laboratory Results - last 24 hr 12/08/20 12/09/20 12/09/20 Range/Units 16:59 06:15 06:15 WBC 6.17 (4.0-11.0) K/uL RBC 3.21 L (4.50-5.90) M/uL Hgb 10.4 L (13.0-17.0) g/dL Hct 31.9 L (38.0-50.0) % MCV 99.4 H (80.0-98.0) fL MCH 32.4 H (27.0-32.0) pg MCHC 32.6 (31.0-37.0) g/dL RDW Std Deviation 51.2 (28.0-62.0) fl RDW Coeff of Theresa 15 (11.0-15.0) % Plt Count 150 (150-400) K/uL MPV 8.80 (7.40-12.00) fL Neut % (Auto) 74.1 (48.0-80.0) % Lymph % (Auto) 14.3 L (16.0-40.0) % Mcminn % (Auto) 9.9 (0.0-15.0) % Eos % (Auto) 1.5 (0.0-7.0) % Baso % (Auto) 0.2 (0.0-1.5) % Neut # (Auto) 4.6 (1.4-5.7) K/uL Lymph # (Auto) 0.9 (0.6-2.4) K/uL Mcminn # (Auto) 0.6 (0.0-0.8) K/uL Eos # (Auto) 0.1 (0.0-0.7) K/uL Baso # (Auto) 0.0 (0.0-0.1) K/uL Sodium 139 (136-148) mmol/L Potassium 4.5 (3.5-5.1) mmol/L Chloride 107 (98-107) mmol/L Carbon Dioxide 27.6 (21.0-32.0) mmol/L BUN 23 H (7.0-18.0) mg/dL Creatinine 2.0 H (0.8-1.3) mg/dL Est Cr Clr Drug Dosing 26.70 mL/min Estimated GFR (MDRD) 32.0 ml/min Glucose 127 H (74-106) mg/dL POC Glucose 163 H (70-99) mg/dL Calcium 8.2 L (8.5-10.1) mg/dL 12/09/20 12/09/20 Range/Units 06:35 12:00 WBC (4.0-11.0) K/uL RBC (4.50-5.90) M/uL Hgb (13.0-17.0) g/dL Hct (38.0-50.0) % MCV (80.0-98.0) fL MCH (27.0-32.0) pg MCHC (31.0-37.0) g/dL RDW Std Deviation (28.0-62.0) fl RDW Coeff of Theresa (11.0-15.0) % Plt Count (150-400) K/uL MPV (7.40-12.00) fL Neut % (Auto) (48.0-80.0) % Lymph % (Auto) (16.0-40.0) % Mcminn % (Auto) (0.0-15.0) % Eos % (Auto) (0.0-7.0) % Baso % (Auto) (0.0-1.5) % Neut # (Auto) (1.4-5.7) K/uL Lymph # (Auto) (0.6-2.4) K/uL Mcminn # (Auto) (0.0-0.8) K/uL Eos # (Auto) (0.0-0.7) K/uL Baso # (Auto) (0.0-0.1) K/uL Sodium (136-148) mmol/L Potassium (3.5-5.1) mmol/L Chloride (98-107) mmol/L Carbon Dioxide (21.0-32.0) mmol/L BUN (7.0-18.0) mg/dL Creatinine (0.8-1.3) mg/dL Est Cr Clr Drug Dosing mL/min Estimated GFR (MDRD) ml/min Glucose (74-106) mg/dL POC Glucose 127 H 206 H (70-99) mg/dL Calcium (8.5-10.1) mg/dL Result Diagrams: 12/09/20 06:15 12/09/20 06:15 Sepsis Event Note - Evaluation Sepsis Screening Result: No Definite Risk - Focused Exam Vital Signs: Vital Signs Temp Pulse Pulse Resp BP BP Pulse Ox 12/09/20 08:31 94 156/78 H 12/09/20 08:00 35.9 C L 94 16 156/78 H 95 12/09/20 03:46 36.1 C 79 18 121/60 94 L - Problem List & Annotations (1) Chest pain, unspecified SNOMED Code(s): 36860150 Code(s): R07.9 - CHEST PAIN, UNSPECIFIED Status: Acute Current Visit: Yes Qualifiers: Chest pain type: unspecified Qualified Code(s): R07.9 - Chest pain, unspecified (2) Chronic kidney disease SNOMED Code(s): 178723894 Code(s): N18.9 - CHRONIC KIDNEY DISEASE, UNSPECIFIED Status: Acute Current Visit: Yes Qualifiers: Chronic kidney disease stage: unspecified stage Qualified Code(s): N18.9 - Chronic kidney disease, unspecified (3) Community acquired pneumonia SNOMED Code(s): 167195568 Code(s): J18.9 - PNEUMONIA, UNSPECIFIED ORGANISM Status: Acute Current Visit: Yes Qualifiers: Laterality: left Lung location: lower lobe of lung Qualified Code(s): J18.9 - Pneumonia, unspecified organism (4) Generalized weakness SNOMED Code(s): 42063350 Code(s): R53.1 - WEAKNESS Status: Acute Current Visit: Yes (5) Atrial fibrillation SNOMED Code(s): 37380065 Code(s): I48.91 - UNSPECIFIED ATRIAL FIBRILLATION Status: Acute Current Visit: No (6) TIA (transient ischemic attack) SNOMED Code(s): 377519978, 211892528 Code(s): G45.9 - TRANSIENT CEREBRAL ISCHEMIC ATTACK, UNSPECIFIED Status: Acute Priority: High Current Visit: No Qualifiers: Transient cerebral ischemia type: other Qualified Code(s): G45.8 - Other transient cerebral ischemic attacks and related syndromes (7) DM type 2 (diabetes mellitus, type 2) SNOMED Code(s): 65834135 Code(s): E11.9 - TYPE 2 DIABETES MELLITUS WITHOUT COMPLICATIONS Status: Chronic Priority: Medium Current Visit: No Qualifiers: Diabetes mellitus complication status: with other specified complication Qualified Code(s): E11.69 - Type 2 diabetes mellitus with other specified complication; Z79.4 - assisted (current) use of insulin (8) Dyslipidemia SNOMED Code(s): 907277163 Code(s): E78.5 - HYPERLIPIDEMIA, UNSPECIFIED Status: Chronic Priority: Low Current Visit: No (9) HTN (hypertension) SNOMED Code(s): 98493677 Code(s): I10 - ESSENTIAL (PRIMARY) HYPERTENSION Status: Chronic Priority: Medium Current Visit: No Qualifiers: Hypertension type: essential hypertension Qualified Code(s): I10 - Essential (primary) hypertension (10) Urinary retention SNOMED Code(s): 839829160 Code(s): R33.9 - RETENTION OF URINE, UNSPECIFIED Status: Acute Current Visit: Yes (11) Lack of family support SNOMED Code(s): 336918358 Code(s): Z63.8 - OTHER SPECIFIED PROBLEMS RELATED TO PRIMARY SUPPORT GROUP Status: Acute Current Visit: Yes - Problem List Review Problem List Initiated/Reviewed/Updated: Yes - My Orders Last 24 Hours: My Active Orders 12/09/20 12:15 Lactated Ringers [Ringers, Lactated] 500 ml IV ASDIRECTED - Plan Plan:: 85-year-old male admitted for A. fib with RVR and community-acquired pneumonia 1. A. fib with RVR -Rate controlled currently -Continue home medications of metoprolol -Not on any anticoagulation due to history of GI bleeding - Monitor magnesium and potassium replaced daily 2. CAP -Continue Levaquin every 48 hours -Not requiring any oxygen. 3. CASSIE on CKD/obstructive uropathy -CASSIE steadily improving nearing baseline now. -Silverio has been removed and we have been monitoring very closely for postvoid residuals as well as continued retention. -Send referral for urology as outpatient patient is more open and going to [email or web address] now states his neighbor will be able to drive him -Avoid nephrotoxic medications -Continue Flomax we will add finasteride 5 mg p.o. daily 4. Appendicitis, early questionable -Has no fevers chills and no leukocytosis -CT noted possible early appendicitis. Spoke with Dr. Mike Hernandez he will see patient but reports likely no intervention needed at this time -Continue Flagyl along with Levaquin already going for community-acquired pneumonia -Continue diet as patient has no abdominal pain 5. HTN/CAD/TIA/CHF/DM type II -Restart home Lasix 40 in a.m. and 16 p.m. -Continue all home medications -[employer] sliding scale with meals VTE prophylaxis: Heparin CODE STATUS: DNR/DNI Dispo: Discharge was set up for yesterday patient was unable to go home safely because there was no one to empty his Silverio bag and assist him with Silverio care as patient is legally blind and has no support at home,. Case management spoke with as well as visiting [place] and home health. is unwilling to assist patient with Silverio cares or really any cares at home at this time. Home health and visiting [place] are unavailable to assist patient until early next week. It is quite a safety concern to send patient home with Silverio catheter that he is unable to empty appropriately or care for appropriately due to chronic vision concerns. Plan for today will be to keep patient and monitor closely. We will monitor postvoid residuals closely and will need to replace catheter if residuals greater than 400. cont finasteride 5 mg daily. Will make patient to inpatient as patient clearly is not safe to go home, is continued to retain urine, and may require another 1 or 2 days to figure out a safe disposition plan for the patient.
[2020-12-09] MEDS: Cholecalciferol (Vitamin D3) 25 MCG Tab PO SCH (17:39)
[2020-12-09] MEDS: Psyllium Husk Powder Sugar Free 5.85 GM Packet PO SCH (17:46)
[2020-12-09] MEDS: Levofloxacin/Dextrose 5%-Water 750 MG in Premix Bag 1 BAG IV SCH (20:01)
[2020-12-09] MEDS: atorvaSTATin 40 MG Tab PO SCH (20:02)
[2020-12-09] MEDS: Mirtazapine 15 MG Tab PO SCH (21:54)
[2020-12-10] MEDS: metroNIDAZOLE/Normal Saline 500 MG in Premix Bag 1 BAG IV SCH ×5 (04:39→23:37)
[2020-12-10 05:51] LABS: CARBON DIOXIDE,CO2 26.8 mmol/L (21.0-32.0); POTASSIUM,K 4.4 mmol/L (3.5-5.1)
[2020-12-10] MEDS: Nystatin Topical Powder 15 GM Bottle TOP SCH ×4 (06:36→23:25)
[2020-12-10] MEDS: Heparin Sodium 5,000 Units/ML Vial SUBCUT SCH ×3 (06:36→23:24)
[2020-12-10] MEDS: Levothyroxine 25 MCG Tab PO SCH (06:37)
[2020-12-10] MEDS: prednisoLONE Acetate 1% Ophth Susp 5 ML Bottle EYERT SCH ×3 (06:37→23:25)
[2020-12-10] MEDS: Insulin Aspart 100 Units/ML 3 ML Pen SUBCUT SCH ×3 (07:44→18:03)
[2020-12-10] MEDS: Furosemide 40 MG Tab PO SCH ×2 (08:07→18:04)
[2020-12-10] MEDS: Spironolactone 25 MG Tab PO SCH (08:07)
[2020-12-10] MEDS: Tamsulosin 0.4 MG Cap.ER PO SCH (08:07)
[2020-12-10] MEDS: Citalopram 20 MG Tab PO SCH (08:07)
[2020-12-10] MEDS: PSYLLIUM HUSK 660 GM PO SCH (08:08)
[2020-12-10] MEDS: Finasteride 5 MG Tab PO SCH (08:08)
[2020-12-10] MEDS: Metoprolol Tartrate 50 MG Tab PO SCH ×2 (08:13→20:23)
[2020-12-10] MEDS: Psyllium Husk Powder Sugar Free 5.85 GM Packet PO SCH (08:13)
[2020-12-10] MEDS ORDERED: Magnesium Sulfate/Water 4 GM in Premix Bag 1 BAG IV ONE (11:39)
--- NOTE | 2020-12-10 13:31 | PCM.PN ---
- General Info Date of Service: 12/10/20 Admission Dx/Problem (Free Text): Admission Diagnosis/Problem Admission Diagnosis/Problem Chest pain in adult Subjective Update: Patient seen at bedside, Per nursing patient eats okay but has not been drinking as much water, no chest pain, sob, Functional Status: Reports: Tolerating Diet, Ambulating, Urinating - Review of Systems General: Denies: Fever, Weakness, Fatigue Pulmonary: Denies: Shortness of Breath, Pleuritic Chest Pain Cardiovascular: Denies: Chest Pain, Palpitations, Dyspnea on Exertion Gastrointestinal: Denies: Abdominal Pain, Constipation, Decreased Appetite Genitourinary: Denies: Dysuria, Frequency, Burning Musculoskeletal: Denies: Neck Pain, Shoulder Pain, Arm Pain Skin: Denies: Cyanosis, Jaundice, Mottled Neurological: Denies: Confusion, Dizziness, Headache - Patient Data Vitals - Most Recent: Last Vital Signs Temp 36.4 C 12/10/20 08:00 Pulse 80 12/10/20 08:13 Resp 20 12/10/20 08:00 BP 134/60 12/10/20 08:13 Pulse Ox 94 L 12/10/20 08:00 Weight - Most Recent: 87.997 kg I&O - Last 24 Hours: Intake & Output 12/09/20 12/10/20 12/10/20 22:59 06:59 14:59 Intake Total 970 340 Output Total 0 1560 Balance 970 -1220 Lab Results Last 24 Hours: Laboratory Results - last 24 hr 12/09/20 12/10/20 12/10/20 Range/Units 17:38 05:00 05:00 WBC 5.50 (4.0-11.0) K/uL RBC 3.21 L (4.50-5.90) M/uL Hgb 10.4 L (13.0-17.0) g/dL Hct 31.9 L (38.0-50.0) % MCV 99.4 H (80.0-98.0) fL MCH 32.4 H (27.0-32.0) pg MCHC 32.6 (31.0-37.0) g/dL RDW Std Deviation 51.9 (28.0-62.0) fl RDW Coeff of Theresa 15 (11.0-15.0) % Plt Count 157 (150-400) K/uL MPV 8.90 (7.40-12.00) fL Neut % (Auto) 74.5 (48.0-80.0) % Lymph % (Auto) 14.2 L (16.0-40.0) % Bourbon % (Auto) 9.3 (0.0-15.0) % Eos % (Auto) 2.0 (0.0-7.0) % Baso % (Auto) 0.0 (0.0-1.5) % Neut # (Auto) 4.1 (1.4-5.7) K/uL Lymph # (Auto) 0.8 (0.6-2.4) K/uL Bourbon # (Auto) 0.5 (0.0-0.8) K/uL Eos # (Auto) 0.1 (0.0-0.7) K/uL Baso # (Auto) 0.0 (0.0-0.1) K/uL Sodium 139 (136-148) mmol/L Potassium 4.4 (3.5-5.1) mmol/L Chloride 107 (98-107) mmol/L Carbon Dioxide 26.8 (21.0-32.0) mmol/L BUN 25 H (7.0-18.0) mg/dL Creatinine 1.9 H (0.8-1.3) mg/dL Est Cr Clr Drug Dosing 28.10 mL/min Estimated GFR (MDRD) 33.9 ml/min Glucose 110 H (74-106) mg/dL POC Glucose 101 H (70-99) mg/dL Calcium 8.0 L (8.5-10.1) mg/dL Phosphorus 3.2 (2.6-4.7) mg/dL Magnesium 1.5 L (1.8-2.4) mg/dL 12/10/20 12/10/20 Range/Units 06:40 12:35 WBC (4.0-11.0) K/uL RBC (4.50-5.90) M/uL Hgb (13.0-17.0) g/dL Hct (38.0-50.0) % MCV (80.0-98.0) fL MCH (27.0-32.0) pg MCHC (31.0-37.0) g/dL RDW Std Deviation (28.0-62.0) fl RDW Coeff of Theresa (11.0-15.0) % Plt Count (150-400) K/uL MPV (7.40-12.00) fL Neut % (Auto) (48.0-80.0) % Lymph % (Auto) (16.0-40.0) % Bourbon % (Auto) (0.0-15.0) % Eos % (Auto) (0.0-7.0) % Baso % (Auto) (0.0-1.5) % Neut # (Auto) (1.4-5.7) K/uL Lymph # (Auto) (0.6-2.4) K/uL Bourbon # (Auto) (0.0-0.8) K/uL Eos # (Auto) (0.0-0.7) K/uL Baso # (Auto) (0.0-0.1) K/uL Sodium (136-148) mmol/L Potassium (3.5-5.1) mmol/L Chloride (98-107) mmol/L Carbon Dioxide (21.0-32.0) mmol/L BUN (7.0-18.0) mg/dL Creatinine (0.8-1.3) mg/dL Est Cr Clr Drug Dosing mL/min Estimated GFR (MDRD) ml/min Glucose (74-106) mg/dL POC Glucose 120 H 177 H (70-99) mg/dL Calcium (8.5-10.1) mg/dL Phosphorus (2.6-4.7) mg/dL Magnesium (1.8-2.4) mg/dL Med Orders - Current: Current Medications Acetaminophen (Acetaminophen 325 Mg Tab) 650 mg PO Q4H PRN PRN Reason: Pain (Mild 1-3)/fever Last Admin: 12/08/20 02:19 Dose: 650 mg Documented by: Albuterol/Ipratropium (Albuterol/Ipratropium 3.0-0.5 Mg/3 Ml Neb Soln) 3 ml NEB Q4HRRT PRN PRN Reason: Shortness Of Breath/wheezing Last Admin: 12/07/20 20:40 Dose: 3 ml Documented by: Artificial Tears (Carboxymethylcellulose Sodium 0.5% Ophth Soln 0.4 Ml Ud Box Of 30) 1 each EYEBOTH TID PRN PRN Reason: Dryness Atorvastatin Calcium (Atorvastatin 40 Mg Tab) 40 mg PO BEDTIME [facility] Last Admin: 12/09/20 20:02 Dose: 40 mg Documented by: Cholecalciferol (Cholecalciferol (Vitamin D3) 25 Mcg Tab) 50 mcg PO QPM [facility] Last Admin: 12/09/20 17:39 Dose: 50 mcg Documented by: Citalopram Hydrobromide (Citalopram 20 Mg Tab) 20 mg PO DAILY [facility] Last Admin: 12/10/20 08:07 Dose: 20 mg Documented by: Dextrose/Water (50% Dextrose In Water 50 Ml Syringe) 50 ml IVPUSH ASDIRECTED PRN PRN Reason: Hypoglycemia Diltiazem HCl (Diltiazem 25 Mg/5 Ml Sdv) 20 mg IVPUSH Q4H PRN PRN Reason: Tachycardia Finasteride (Finasteride 5 Mg Tab) 5 mg PO DAILY [facility] Last Admin: 12/10/20 08:08 Dose: 5 mg Documented by: Furosemide (Furosemide 40 Mg Tab) 60 mg PO QPM [facility] Last Admin: 12/09/20 17:39 Dose: 60 mg Documented by: Furosemide (Furosemide 40 Mg Tab) 40 mg PO QAM [facility] Last Admin: 12/10/20 08:07 Dose: 40 mg Documented by: Glucagon (Glucagon,Human Recombinant 1 Mg Vial) 1 mg IM ASDIRECTED PRN PRN Reason: Hypoglycemia Heparin Sodium (Porcine) (Heparin Sodium 5,000 Units/Ml Vial) 5,000 units SUBCUT Q8H [facility] Last Admin: 12/10/20 06:36 Dose: 5,000 units Documented by: Levofloxacin/Dextrose 750 mg/ (Premix) 150 mls @ 150 mls/hr IV Q48H [facility] Last Admin: 12/09/20 20:01 Dose: 100 mls/hr Documented by: Lactated Ringer's (Ringers, Lactated) 500 mls @ 999 mls/hr IV ASDIRECTED [facility] Last Admin: 12/09/20 13:21 Dose: 999 mls/hr Documented by: Magnesium Sulfate 4 gm/ Premix 100 mls @ 33.333 mls/hr IV ONETIME ONE Stop: 12/10/20 14:38 Last Admin: 12/10/20 12:24 Dose: 33.333 mls/hr Documented by: Metronidazole 500 mg/ Premix 100 mls @ 100 mls/hr IV Q6H [facility] Last Admin: 12/10/20 12:13 Dose: 100 mls/hr Documented by: Insulin Aspart (Insulin Aspart 100 Units/Ml 3 Ml Pen) 0 unit SUBCUT TIDAC [facility]; Protocol Last Admin: 12/10/20 07:44 Dose: Not Given Documented by: Levothyroxine Sodium (Levothyroxine 25 Mcg Tab) 25 mcg PO ACBREAKFAST [facility] Last Admin: 12/10/20 06:37 Dose: 25 mcg Documented by: Metoprolol Tartrate (Metoprolol Tartrate 50 Mg Tab) 100 mg PO BID [facility] Last Admin: 12/10/20 08:13 Dose: 100 mg Documented by: Mirtazapine (Mirtazapine 15 Mg Tab) 30 mg PO BEDTIME [facility] Last Admin: 12/09/20 21:54 Dose: 30 mg Documented by: Nystatin (Nystatin Topical Powder 15 Gm Bottle) 0 gm TOP QID [facility] Last Admin: 12/10/20 12:12 Dose: 1 applic Documented by: Ondansetron HCl (Ondansetron 4 Mg/2 Ml Sdv) 4 mg IVPUSH Q4H PRN PRN Reason: Nausea/Vomiting Psyllium Husk [ Metamucil] 660 Gm Powder 1 each PO QAM [facility] Last Admin: 12/10/20 08:08 Dose: Not Given Documented by: Prednisolone Acetate (Prednisolone Acetate 1% Ophth Susp 5 Ml Bottle) 1 ml EYERT TID [facility] Last Admin: 12/10/20 06:37 Dose: 1 drop Documented by: Psyllium Husk (Psyllium Husk Powder Sugar Free 5.85 Gm Packet) 1 pkt PO DAILY [facility] Last Admin: 12/10/20 08:13 Dose: 1 pkt Documented by: Sodium Chloride (Sodium Chloride 0.9% 2.5 Ml Syringe) 2.5 ml FLUSH ASDIRECTED PRN PRN Reason: Keep Vein Open Spironolactone (Spironolactone 25 Mg Tab) 25 mg PO DAILY [facility] Last Admin: 12/10/20 08:07 Dose: 25 mg Documented by: Tamsulosin HCl (Tamsulosin 0.4 Mg Cap.Er) 0.4 mg PO PCBREAKFAST [facility] Last Admin: 12/10/20 08:07 Dose: 0.4 mg Documented by: Discontinued Medications Aspirin (Aspirin 81 Mg Tab.Chew) 243 mg PO ONETIME ONE Stop: 12/05/20 14:15 Last Admin: 12/05/20 14:49 Dose: 243 mg Documented by: Enoxaparin Sodium (Enoxaparin 30 Mg/0.3 Ml Syringe) 30 mg SUBCUT Q24H [facility] Sodium Chloride (Normal Saline) 1,000 mls @ 999 mls/hr IV STAT ONE Stop: 12/05/20 14:53 Last Admin: 12/05/20 14:00 Dose: 999 mls/hr Documented by: Ceftriaxone Sodium/Dextrose 1 (gm/ Premix) 50 mls @ 100 mls/hr IV ONETIME ONE Stop: 12/05/20 17:43 Last Admin: 12/05/20 17:39 Dose: 100 mls/hr Documented by: Lactated Ringer's (Ringers, Lactated) 1,000 mls @ 125 mls/hr IV ASDIRECTED [facility] Last Admin: 12/07/20 05:50 Dose: 125 mls/hr Documented by: Levofloxacin/Dextrose 750 mg/ (Premix) 150 mls @ 100 mls/hr IV ONETIME ONE Stop: 12/05/20 20:29 Last Admin: 12/05/20 19:32 Dose: 100 mls/hr Documented by: Magnesium Sulfate 2 gm/ Premix 50 mls @ 12.5 mls/hr IV ONETIME ONE Stop: 12/06/20 02:47 Last Admin: 12/05/20 23:53 Dose: 12.5 mls/hr Documented by: Lactated Ringer's (Ringers, Lactated) 1,000 mls @ 999 mls/hr IV .BOLUS ONE Stop: 12/06/20 00:25 Last Admin: 12/05/20 23:54 Dose: 999 mls/hr Documented by: Metronidazole 500 mg/ Premix 100 mls @ 100 mls/hr IV QID [facility] Last Admin: 12/07/20 09:43 Dose: 100 mls/hr Documented by: Metronidazole 500 mg/ Premix 100 mls @ 100 mls/hr IV Q6H [facility] Last Admin: 12/10/20 12:37 Dose: Not Given Documented by: Metoprolol Tartrate (Metoprolol Tartrate 50 Mg Tab) 100 mg PO ONETIME ONE Stop: 12/05/20 20:01 Last Admin: 12/05/20 20:03 Dose: 100 mg Documented by: Sodium Chloride (Sodium Chloride 0.9% 2.5 Ml Syringe) 2.5 ml FLUSH ASDIRECTED PRN PRN Reason: Keep Vein Open Last Admin: 12/05/20 14:00 Dose: 2.5 ml Documented by: Sodium Chloride (Sodium Chloride 0.9% 10 Ml Syringe) 10 ml FLUSH ASDIRECTED PRN PRN Reason: Keep Vein Open Last Admin: 12/05/20 14:00 Dose: 10 ml Documented by: Tamsulosin HCl (Tamsulosin 0.4 Mg Cap.Er) 0.4 mg PO PCBREAKFAST JACOB - Exam Quality Assessment: Supplemental Oxygen Urinary Catheter Total Time: 0Days 12Hours General: Alert, Oriented Lungs: Normal Respiratory Effort, Decreased Breath Sounds Cardiovascular: Regular Rate, Regular Rhythm GI/Abdominal Exam: Normal Bowel Sounds, Soft, Non-Tender (Male) Exam: Other (bruno in place) - Patient Data Lab Results Last 24 hrs: Laboratory Results - last 24 hr 12/09/20 12/10/20 12/10/20 Range/Units 17:38 05:00 05:00 WBC 5.50 (4.0-11.0) K/uL RBC 3.21 L (4.50-5.90) M/uL Hgb 10.4 L (13.0-17.0) g/dL Hct 31.9 L (38.0-50.0) % MCV 99.4 H (80.0-98.0) fL MCH 32.4 H (27.0-32.0) pg MCHC 32.6 (31.0-37.0) g/dL RDW Std Deviation 51.9 (28.0-62.0) fl RDW Coeff of Theresa 15 (11.0-15.0) % Plt Count 157 (150-400) K/uL MPV 8.90 (7.40-12.00) fL Neut % (Auto) 74.5 (48.0-80.0) % Lymph % (Auto) 14.2 L (16.0-40.0) % Bourbon % (Auto) 9.3 (0.0-15.0) % Eos % (Auto) 2.0 (0.0-7.0) % Baso % (Auto) 0.0 (0.0-1.5) % Neut # (Auto) 4.1 (1.4-5.7) K/uL Lymph # (Auto) 0.8 (0.6-2.4) K/uL Bourbon # (Auto) 0.5 (0.0-0.8) K/uL Eos # (Auto) 0.1 (0.0-0.7) K/uL Baso # (Auto) 0.0 (0.0-0.1) K/uL Sodium 139 (136-148) mmol/L Potassium 4.4 (3.5-5.1) mmol/L Chloride 107 (98-107) mmol/L Carbon Dioxide 26.8 (21.0-32.0) mmol/L BUN 25 H (7.0-18.0) mg/dL Creatinine 1.9 H (0.8-1.3) mg/dL Est Cr Clr Drug Dosing 28.10 mL/min Estimated GFR (MDRD) 33.9 ml/min Glucose 110 H (74-106) mg/dL POC Glucose 101 H (70-99) mg/dL Calcium 8.0 L (8.5-10.1) mg/dL Phosphorus 3.2 (2.6-4.7) mg/dL Magnesium 1.5 L (1.8-2.4) mg/dL 12/10/20 12/10/20 Range/Units 06:40 12:35 WBC (4.0-11.0) K/uL RBC (4.50-5.90) M/uL Hgb (13.0-17.0) g/dL Hct (38.0-50.0) % MCV (80.0-98.0) fL MCH (27.0-32.0) pg MCHC (31.0-37.0) g/dL RDW Std Deviation (28.0-62.0) fl RDW Coeff of Theresa (11.0-15.0) % Plt Count (150-400) K/uL MPV (7.40-12.00) fL Neut % (Auto) (48.0-80.0) % Lymph % (Auto) (16.0-40.0) % Bourbon % (Auto) (0.0-15.0) % Eos % (Auto) (0.0-7.0) % Baso % (Auto) (0.0-1.5) % Neut # (Auto) (1.4-5.7) K/uL Lymph # (Auto) (0.6-2.4) K/uL Bourbon # (Auto) (0.0-0.8) K/uL Eos # (Auto) (0.0-0.7) K/uL Baso # (Auto) (0.0-0.1) K/uL Sodium (136-148) mmol/L Potassium (3.5-5.1) mmol/L Chloride (98-107) mmol/L Carbon Dioxide (21.0-32.0) mmol/L BUN (7.0-18.0) mg/dL Creatinine (0.8-1.3) mg/dL Est Cr Clr Drug Dosing mL/min Estimated GFR (MDRD) ml/min Glucose (74-106) mg/dL POC Glucose 120 H 177 H (70-99) mg/dL Calcium (8.5-10.1) mg/dL Phosphorus (2.6-4.7) mg/dL Magnesium (1.8-2.4) mg/dL Result Diagrams: 12/10/20 05:00 12/10/20 05:00 Sepsis Event Note - Evaluation Sepsis Screening Result: No Definite Risk - Focused Exam Vital Signs: Vital Signs Temp Pulse Pulse Resp BP BP Pulse Ox 12/10/20 08:13 80 134/60 12/10/20 08:00 36.4 C 80 20 134/60 94 L 12/10/20 05:43 12/10/20 04:00 36.4 C 79 21 H 123/53 L 95 Pulse Ox 12/10/20 08:13 12/10/20 08:00 12/10/20 05:43 95 12/10/20 04:00 - Problem List & Annotations (1) Chest pain, unspecified SNOMED Code(s): 84032647 Code(s): R07.9 - CHEST PAIN, UNSPECIFIED Status: Acute Current Visit: Yes Qualifiers: Chest pain type: unspecified Qualified Code(s): R07.9 - Chest pain, unspe cified (2) Chronic kidney disease SNOMED Code(s): 340392611 Code(s): N18.9 - CHRONIC KIDNEY DISEASE, UNSPECIFIED Status: Acute Current Visit: Yes Qualifiers: Chronic kidney disease stage: unspecified stage Qualified Code(s): N18.9 - Chronic kidney disease, unspecified (3) Community acquired pneumonia SNOMED Code(s): 534002104 Code(s): J18.9 - PNEUMONIA, UNSPECIFIED ORGANISM Status: Acute Current Visit: Yes Qualifiers: Laterality: left Lung location: lower lobe of lung Qualified Code(s): J18.9 - Pneumonia, unspecified organism (4) Generalized weakness SNOMED Code(s): 92892070 Code(s): R53.1 - WEAKNESS Status: Acute Current Visit: Yes (5) Atrial fibrillation SNOMED Code(s): 47445190 Code(s): I48.91 - UNSPECIFIED ATRIAL FIBRILLATION Status: Acute Current Visit: No (6) TIA (transient ischemic attack) SNOMED Code(s): 481185758, 489161169 Code(s): G45.9 - TRANSIENT CEREBRAL ISCHEMIC ATTACK, UNSPECIFIED Status: Acute Priority: High Current Visit: No Qualifiers: Transient cerebral ischemia type: other Qualified Code(s): G45.8 - Other transient cerebral ischemic attacks and related syndromes (7) DM type 2 (diabetes mellitus, type 2) SNOMED Code(s): 94541962 Code(s): E11.9 - TYPE 2 DIABETES MELLITUS WITHOUT COMPLICATIONS Status: Chronic Priority: Medium Current Visit: No Qualifiers: Diabetes mellitus complication status: with other specified complication Qualified Code(s): E11.69 - Type 2 diabetes mellitus with other specified complication; Z79.4 - FDC (current) use of insulin (8) Dyslipidemia SNOMED Code(s): 542944691 Code(s): E78.5 - HYPERLIPIDEMIA, UNSPECIFIED Status: Chronic Priority: Low Current Visit: No (9) HTN (hypertension) SNOMED Code(s): 34364459 Code(s): I10 - ESSENTIAL (PRIMARY) HYPERTENSION Status: Chronic Priority: Medium Current Visit: No Qualifiers: Hypertension type: essential hypertension Qualified Code(s): I10 - Essential (primary) hypertension (10) Urinary retention SNOMED Code(s): 519930503 Code(s): R33.9 - RETENTION OF URINE, UNSPECIFIED Status: Acute Current Visit: Yes (11) Lack of family support SNOMED Code(s): 432587041 Code(s): Z63.8 - OTHER SPECIFIED PROBLEMS RELATED TO PRIMARY SUPPORT GROUP Status: Acute Current Visit: Yes - Problem List Review Problem List Initiated/Reviewed/Updated: Yes - My Orders Last 24 Hours: My Active Orders 12/09/20 13:33 Admission Status [Patient Status] [ADT] Routine 12/09/20 16:48 Urinary Catheter Assessment [RC] Q4H 12/09/20 17:00 Bruno Catheter Insertion [Insert Urinary Catheter] [OM.PC] Q24H Psyllium Husk/Aspartame [Metamucil Sugar Free] 1 pkt PO DAILY 12/10/20 11:39 Magnesium Sulfate/Water [Magnesium Sulfate in Water 4 GM/100 ML] 4 gm Premix Bag 1 bag IV ONETIME - Plan Plan:: 85-year-old male admitted for A. fib with RVR and community-acquired pneumonia 1. A. fib with RVR -Rate controlled currently -Continue home medications of metoprolol -Not on any anticoagulation due to history of GI bleeding - Monitor magnesium and potassium replaced daily 2. CAP -Continue Levaquin every 48 hours -Not requiring any oxygen. 3. CASSIE on CKD/obstructive uropathy -CASSIE steadily improving nearing baseline now. -cont Bruno care -Send referral for urology as outpatient patient is more open and going to [facility] now states his neighbor will be able to drive him -Avoid nephrotoxic medications -Continue Flomax, finasteride 5 mg p.o. daily 4. Appendicitis, early questionable -Has no fevers chills and no leukocytosis -CT noted possible early appendicitis. Spoke with Dr. Mike Hernandez he will see patient but reports likely no intervention needed at this time -Continue Flagyl along with Levaquin already going for community-acquired pneumonia -Continue diet as patient has no abdominal pain 5. HTN/CAD/TIA/CHF/DM type II -Restart home Lasix 40 in a.m. and 16 p.m. -Continue all home medications -[employer] sliding scale with meals VTE prophylaxis: Heparin CODE STATUS: DNR/DNI Dispo: Discharge was set up for yesterday patient was unable to go home safely because there was no one to empty his Bruno bag and assist him with Bruno care as patient is legally blind and has no support at home,. Case management spoke with as well as visiting [place] and home health. is unwilling to assist patient with Bruno cares or really any cares at home at this time. Home health and visiting [place] are unavailable to assist patient until early next week. It is quite a safety concern to send patient home with Bruno catheter that he is unable to empty appropriately or care for appropriately due to chronic vision concerns. Plan for today will be to keep patient and monitor closely. We will monitor postvoid residuals closely and will need to replace catheter if residuals greater than 400. cont finasteride 5 mg daily. Will make patient to inpatient as patient clearly is not safe to go home, is continued to retain urine, and may require another 1 or 2 days to figure out a safe disposition plan for the patient. Patient states he is thinking about considering skilled nursing placement and would like to think about it.
[2020-12-10] MEDS: Cholecalciferol (Vitamin D3) 25 MCG Tab PO SCH (18:04)
[2020-12-10] MEDS: atorvaSTATin 40 MG Tab PO SCH (20:23)
[2020-12-10] MEDS: Mirtazapine 15 MG Tab PO SCH (23:24)
[2020-12-11 06:05] LABS: CARBON DIOXIDE,CO2 27.8 mmol/L (21.0-32.0); POTASSIUM,K 4.5 mmol/L (3.5-5.1)
[2020-12-11] MEDS: Levothyroxine 25 MCG Tab PO SCH (06:35)
[2020-12-11] MEDS: Nystatin Topical Powder 15 GM Bottle TOP SCH ×2 (06:35→11:48)
[2020-12-11] MEDS: prednisoLONE Acetate 1% Ophth Susp 5 ML Bottle EYERT SCH ×2 (06:35→13:12)
[2020-12-11] MEDS: Heparin Sodium 5,000 Units/ML Vial SUBCUT SCH ×2 (06:35→13:12)
[2020-12-11] MEDS: metroNIDAZOLE/Normal Saline 500 MG in Premix Bag 1 BAG IV SCH ×2 (06:41→11:49)
[2020-12-11] MEDS: Insulin Aspart 100 Units/ML 3 ML Pen SUBCUT SCH ×2 (07:44→11:48)
[2020-12-11] MEDS: Citalopram 20 MG Tab PO SCH (09:38)
[2020-12-11] MEDS: Spironolactone 25 MG Tab PO SCH (09:39)
[2020-12-11] MEDS: Furosemide 40 MG Tab PO SCH (09:39)
[2020-12-11] MEDS: Finasteride 5 MG Tab PO SCH (09:39)
[2020-12-11] MEDS: Metoprolol Tartrate 50 MG Tab PO SCH (09:40)
[2020-12-11] MEDS: PSYLLIUM HUSK 660 GM PO SCH (09:44)
[2020-12-11] MEDS: Psyllium Husk Powder Sugar Free 5.85 GM Packet PO SCH (09:45)
[2020-12-11] MEDS: Tamsulosin 0.4 MG Cap.ER PO SCH (09:49)
[2020-12-11] MEDS ORDERED: Levofloxacin 750 MG Tab PO ONE (09:55)
[2020-12-11 11:44] VITALS: BP 111/54; PULSE 82
--- NOTE | 2020-12-11 11:48 | PCM.DCSUM1 ---
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 Patient reports that yesterday evening the symptoms began but he did not think he needed to go to the hospital as the symptoms were not as severe. Patient reports that this morning he was trying to get into a vehicle he felt very tired and fatigued and was not able to stand up for long duration of time. Patient states that he has some ongoing cough for last few days also states that he might not be drinking and eating as much for the past few days. Patient states that his chest feels heavy since this morning. Patient has taken 1 baby aspirin this morning. Patient denies fever, chills, headache, neck stiff ness, change in vision, syncope, or near syncope. Denies nausea, vomiting, abdominal pain, diarrhea, constipation, or dysuria. Has not noted any blood in urine or stool. In the ER patient was found to be in A. fib/a flutter with heart rate in 140s. Patient received some IV fluid hydration which helped improving his heart rate. Troponin was negative, EKG was unremarkable for any acute ischemic findings. Chest x-ray was significant for possible community-acquired pneumonia. Patient was admitted for further management - Discharge Data Discharge Date: 12/11/20 Discharge Disposition: Home, Home Health Agency 06 Condition: Good - Referral to Home Health Date of Face to Face Encounter: 12/08/20 Reason for Homebound Status: Tyler is homebound needing assistance to leave the house with caregiver and assistive device to go to appointments due to unsteady gait and new indwelling bruno catheter. Primary Care Physician: Harry Pacheco MD Skilled Need: Tyler is in need of [facility] care to help monitor signs and symptoms of CHF including VS and weight. He also is in need of bruno cares and education on emptying bruno catheter. He would benefit from PT/OT to evaluate and treat for unsteady gait and deconditioning secondary to recent hospitalization and acute illness. He would also benefit from home safety evaluation from OT. Please help arrange appointment with Urology in [place]. - Discharge Diagnosis/Problem(s) (1) Obstructive nephropathy SNOMED Code(s): 73984633 ICD Code: N13.8 - OTHER OBSTRUCTIVE AND REFLUX UROPATHY Status: Acute Current Visit: Yes (2) Acute kidney injury superimposed on CKD SNOMED Code(s): 50092815 ICD Code: N17.9 - ACUTE KIDNEY FAILURE, UNSPECIFIED; N18.9 - CHRONIC KIDNEY DISEASE, UNSPECIFIED Status: Acute Current Visit: Yes (3) Appendicitis SNOMED Code(s): 55766389 ICD Code: K37 - UNSPECIFIED APPENDICITIS Status: Acute Current Visit: Yes (4) Chest pain, unspecified SNOMED Code(s): 94823878 ICD Code: R07.9 - CHEST PAIN, UNSPECIFIED Status: Acute Current Visit: Yes Qualifiers: Chest pain type: unspecified Qualified Code(s): R07.9 - Chest pain, unspecified (5) Chronic kidney disease SNOMED Code(s): 050461710 ICD Code: N18.9 - CHRONIC KIDNEY DISEASE, UNSPECIFIED Status: Acute Current Visit: Yes Qualifiers: Chronic kidney disease stage: unspecified stage Qualified Code(s): N18.9 - Chronic kidney disease, unspecified (6) Community acquired pneumonia SNOMED Code(s): 596995302 ICD Code: J18.9 - PNEUMONIA, UNSPECIFIED ORGANISM Status: Acute Current Visit: Yes Qualifiers: Laterality: left Lung location: lower lobe of lung Qualified Code(s): J18.9 - Pneumonia, unspecified organism (7) Generalized weakness SNOMED Code(s): 04422795 ICD Code: R53.1 - WEAKNESS Status: Acute Current Visit: Yes (8) Urinary retention SNOMED Code(s): 883280193 ICD Code: R33.9 - RETENTION OF URINE, UNSPECIFIED Status: Acute Current Visit: Yes (9) Atrial fibrillation SNOMED Code(s): 91571801 ICD Code: I48.91 - UNSPECIFIED ATRIAL FIBRILLATION Status: Acute Current Visit: No (10) TIA (transient ischemic attack) SNOMED Code(s): 781623188, 100806605 ICD Code: G45.9 - TRANSIENT CEREBRAL ISCHEMIC ATTACK, UNSPECIFIED Status: Acute Priority: High Current Visit: No Qualifiers: Transient cerebral ischemia type: other Qualified Code(s): G45.8 - Other transient cerebral ischemic attacks and related syndromes (11) DM type 2 (diabetes mellitus, type 2) SNOMED Code(s): 57545634 ICD Code: E11.9 - TYPE 2 DIABETES MELLITUS WITHOUT COMPLICATIONS Status: Chronic Priority: Medium Current Visit: No Qualifiers: Diabetes mellitus complication status: with other specified complication Qualified Code(s): E11.69 - Type 2 diabetes mellitus with other specified complication; Z79.4 - molecular modeler (current) use of insulin (12) Dyslipidemia SNOMED Code(s): 968147429 ICD Code: E78.5 - HYPERLIPIDEMIA, UNSPECIFIED Status: Chronic Priority: Low Current Visit: No (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 SNOMED Code(s): 929883872453703 ICD Code: H02.105 - UNSPECIFIED ECTROPION OF LEFT LOWER EYELID Status: Chronic Priority: High Current Visit: No (14) HTN (hypertension) SNOMED Code(s): 51367514 ICD Code: I10 - ESSENTIAL (PRIMARY) HYPERTENSION Status: Chronic Priority: Medium Current Visit: No Qualifiers: Hypertension type: essential hypertension Qualified Code(s): I10 - Essential (primary) hypertension - Patient Summary/Data Consults: Consultations 12/07/20 08:52 Consult to Physician [CONS] Routine Hospital Course: Admitting diagnoses Atypical chest pain CAP A. fib RVR CASSIE on CKD Discharge diagnoses Atypical chest pain CAP A. fib RVR CASSIE on CKD Obstructive uropathy Hypoxia Other PMH DM type II hypertension CAD Blindness Tyler was admitted secondary to atypical chest pain which has since resolved. A. fib resolved with 1 dose of diltiazem. Patient continued on his home dose of metoprolol and is not on anticoagulation due to past medical history of GI bleeding. Echo pending on discharge. he was noted that he had left lower lung infiltrate versus atelectasis. He was started on Levaquin at that time. Upon admission CASSIE was noted he does have a history of CKD. He was treated with IV fluids later on the following day he was noted to be retaining urine. Patient was straight cathed x1 and patient continued to retain so Bruno catheter was placed. Patient does have a history of a TURP. Once Bruno catheter was placed CASSIE continue to resolve quickly. CT of the belly was obtained which revealed bilateral perinephric stranding without evidence of hydronephrosis or hydroureter no distal obstructing calculus. There was somewhat prominent appen luis measuring up to 1 cm which could represent developing uncomplicated appendicitis. Patient having no symptoms no fevers no chills no abdominal pain. Patient has been eating well. Dr. Mike Hernandez was consulted felt no surgical intervention was needed at this time due to patient clinical symptoms did not match. Patient was started on Flagyl along with Levaquin. Patient continued to tolerate diet well. 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 No free air or fluid within the abdomen. Bruno catheter was kept in place. IV fluids were stopped and patient was restarted on his home Lasix dosing. Patient doing well today continues to have Bruno in place. No abdominal pain eating and drinking well. Patient is somewhat reluctant to go home as he reports him and his will have difficulties with Bruno catheter. Patient will be discharged home with home health along with his any needles which she has agreed has helped in the past and he is willing to pay for private caregivers to help empty Bruno catheter. He will be educated on Bruno catheter prior to discharge. He was reassured that visiting [place] have been contacted by case management as well as home health will help. Patient will be set up with chucker, PCP as well as urologist as outpatient follow-ups. Bruno catheter to remain in place at this time. Voiding trial was attempted over the weekend as patient stay due to safety at home with Bruno catheter cares. Patient failed urinary trial as he was retaining upwards of 500 to 600 mL of urine. Bruno catheter replaced. He will be continued on Levaquin for 1 more day and Flagyl for 5 more days for complete 10-day course. Patient is to return to the ER clinic if concerns should arise. He is especially counseled on returning if abdominal pain were to start or he started having fevers and chills and poor appetite. He verbalized understanding. Patient to be discharged home today with home health. Continues to need intermittent oxygen. Room air challenge obtained patient saturation 87% on room air at rest. He was placed on 2 L nasal cannula at rest and sats increased to 93%. Patient will be discharged home with continuous oxygen at 2 L nasal cannula due to CHF and hypoxemia. Patient to be further evaluated for removal of oxygen by PCP in the next coming months. - Patient Instructions Diet: Heart Healthy Diet, Diabetic Diet Activity: As Tolerated, No Strenuous Activities Driving: Do Not Drive Showering/Bathing: May Shower Notify Provider of: Fever, Increased Pain, Swelling and Redness, Drainage, Nausea and/or Vomiting Other/Special Instructions: If you develop abdominal pain or fevers please seek medical evaluation promptly - Discharge Plan *PRESCRIPTION DRUG MONITORING PROGRAM REVIEWED*: Not Applicable *COPY OF PRESCRIPTION DRUG MONITORING REPORT IN PATIENT COLIN: Not Applicable Prescriptions/Med Rec: Finasteride 5 mg PO DAILY #15 tablet metroNIDAZOLE [Flagyl] 500 mg PO Q8H #24 tab levoFLOXacin [Levaquin] 750 mg PO Q48H #3 tab Home Medications: Home Meds Losartan Potassium 25 mg PO DAILY 02/23/14 [History] Metoprolol Tartrate 100 mg PO BID 02/23/14 [History] atorvaSTATin Calcium [Atorvastatin Calcium] 40 mg PO BEDTIME 02/23/14 [History] Tamsulosin [Flomax] 0.4 mg PO PCBREAKFAST 30 Days #30 cap.er 07/29/19 [Rx] Cholecalciferol (Vitamin D3) [Vitamin D3] 2,000 unit PO QPM 03/23/20 [History] Furosemide [Lasix] 40 mg PO QAM 03/23/20 [History] Levothyroxine 25 mcg PO ACBREAKFAST 03/23/20 [History] Loperamide [Imodium] 2 mg PO BEDTIME 03/23/20 [History] PEG 400/Hypromellose/Glycerin [Artificial Tears Drops] 1 drop EYEBOTH ASDIRECTED PRN 03/23/20 [History] Prednisolone Acetate/Pf [Prednisolone Acet 1% Eye Drop] 1 drop EYERT TID 03/23/20 [History] Psyllium Husk [Metamucil] 2 tbsp PO QAM 03/23/20 [History] Spironolactone [Aldactone] 25 mg PO DAILY 03/23/20 [History] Citalopram Hydrobromide [Celexa] 20 mg PO DAILY 12/06/20 [History] Furosemide 60 mg PO QPM 12/06/20 [History] Glimepiride 1 mg PO DAILY 12/06/20 [History] Linagliptin [Tradjenta] 5 mg PO DAILY 12/06/20 [History] Mirtazapine [Remeron] 2 tab PO BEDTIME 12/06/20 [History] levoFLOXacin [Levaquin] 750 mg PO Q48H #3 tab 12/08/20 [Rx] metroNIDAZOLE [Flagyl] 500 mg PO Q8H #24 tab 12/08/20 [Rx] Finasteride 5 mg PO DAILY #15 tablet 12/11/20 [Rx] Oxygen Therapy Mode: Nasal Cannula Oxygen Flow Rate (L/min): 1 Maintain SPO2% less than: 90 Patient Handouts: Indwelling Urinary Catheter Care, Adult, Levofloxacin tablets, Community-Acquired Pneumonia, Adult, Metronidazole tablets or capsules Referrals: Harleen Appiah MD [Physician] - 12/29/20 2:30 pm Harry Pacheco MD [Primary Care Provider] - 12/20/20 12:30 pm - Discharge Summary/Plan Comment DC Time >30 min.: No - Patient Data Vitals - Most Recent: Last Vital Signs Temp 97.4 F 12/11/20 11:43 Pulse 82 12/11/20 11:43 Resp 17 12/11/20 11:43 BP 111/54 L 12/11/20 11:43 Pulse Ox 92 L 12/11/20 11:43 Weight - Most Recent: 87.77 kg I&O - Last 24 hours: Intake & Output 12/10/20 12/11/20 12/11/20 22:59 06:59 14:59 Intake Total 820 600 Output Total 550 1920 Balance 270 -1320 Lab Results - Last 24 hrs: Laboratory Results - last 24 hr 12/10/20 12/10/20 12/11/20 Range/Units 12:35 18:00 05:00 WBC 5.43 (4.0-11.0) K/uL RBC 3.18 L (4.50-5.90) M/uL Hgb 10.3 L (13.0-17.0) g/dL Hct 31.7 L (38.0-50.0) % MCV 99.7 H (80.0-98.0) fL MCH 32.4 H (27.0-32.0) pg MCHC 32.5 (31.0-37.0) g/dL RDW Std Deviation 52.0 (28.0-62.0) fl RDW Coeff of Theresa 15 (11.0-15.0) % Plt Count 156 (150-400) K/uL MPV 8.90 (7.40-12.00) fL Neut % (Auto) 72.9 (48.0-80.0) % Lymph % (Auto) 15.8 L (16.0-40.0) % [place] % (Auto) 8.3 (0.0-15.0) % Eos % (Auto) 2.8 (0.0-7.0) % Baso % (Auto) 0.2 (0.0-1.5) % Neut # (Auto) 4.0 (1.4-5.7) K/uL Lymph # (Auto) 0.9 (0.6-2.4) K/uL [place] # (Auto) 0.5 (0.0-0.8) K/uL Eos # (Auto) 0.2 (0.0-0.7) K/uL Baso # (Auto) 0.0 (0.0-0.1) K/uL Sodium (136-148) mmol/L Potassium (3.5-5.1) mmol/L Chloride (98-107) mmol/L Carbon Dioxide (21.0-32.0) mmol/L BUN (7.0-18.0) mg/dL Creatinine (0.8-1.3) mg/dL Est Cr Clr Drug Dosing mL/min Estimated GFR (MDRD) ml/min Glucose (74-106) mg/dL POC Glucose 177 H 171 H (70-99) mg/dL Calcium (8.5-10.1) mg/dL Phosphorus (2.6-4.7) mg/dL Magnesium (1.8-2.4) mg/dL 12/11/20 12/11/20 Range/Units 05:00 06:33 WBC (4.0-11.0) K/uL RBC (4.50-5.90) M/uL Hgb (13.0-17.0) g/dL Hct (38.0-50.0) % MCV (80.0-98.0) fL MCH (27.0-32.0) pg MCHC (31.0-37.0) g/dL RDW Std Deviation (28.0-62.0) fl RDW Coeff of Theresa (11.0-15.0) % Plt Count (150-400) K/uL MPV (7.40-12.00) fL Neut % (Auto) (48.0-80.0) % Lymph % (Auto) (16.0-40.0) % [place] % (Auto) (0.0-15.0) % Eos % (Auto) (0.0-7.0) % Baso % (Auto) (0.0-1.5) % Neut # (Auto) (1.4-5.7) K/uL Lymph # (Auto) (0.6-2.4) K/uL [place] # (Auto) (0.0-0.8) K/uL Eos # (Auto) (0.0-0.7) K/uL Baso # (Auto) (0.0-0.1) K/uL Sodium 141 (136-148) mmol/L Potassium 4.5 (3.5-5.1) mmol/L Chloride 107 (98-107) mmol/L Carbon Dioxide 27.8 (21.0-32.0) mmol/L BUN 21 H (7.0-18.0) mg/dL Creatinine 2.0 H (0.8-1.3) mg/dL Est Cr Clr Drug Dosing 26.60 mL/min Estimated GFR (MDRD) 32.0 ml/min Glucose 113 H (74-106) mg/dL POC Glucose 122 H (70-99) mg/dL Calcium 8.0 L (8.5-10.1) mg/dL Phosphorus 3.2 (2.6-4.7) mg/dL Magnesium 2.2 (1.8-2.4) mg/dL Med Orders - Current: Current Medications Acetaminophen (Acetaminophen 325 Mg Tab) 650 mg PO Q4H PRN PRN Reason: Pain (Mild 1-3)/fever Last Admin: 12/08/20 02:19 Dose: 650 mg Documented by: Albuterol/Ipratropium (Albuterol/Ipratropium 3.0-0.5 Mg/3 Ml Neb Soln) 3 ml NEB Q4HRRT PRN PRN Reason: Shortness Of Breath/wheezing Last Admin: 12/07/20 20:40 Dose: 3 ml Documented by: Artificial Tears (Carboxymethylcellulose Sodium 0.5% Ophth Soln 0.4 Ml Ud Box Of 30) 1 each EYEBOTH TID PRN PRN Reason: Dryness Atorvastatin Calcium (Atorvastatin 40 Mg Tab) 40 mg PO BEDTIME [facility] Last Admin: 12/10/20 20:23 Dose: 40 mg Documented by: Cholecalciferol (Cholecalciferol (Vitamin D3) 25 Mcg Tab) 50 mcg PO QPM [facility] Last Admin: 12/10/20 18:04 Dose: 50 mcg Documented by: Citalopram Hydrobromide (Citalopram 20 Mg Tab) 20 mg PO DAILY [facility] Last Admin: 12/11/20 09:38 Dose: 20 mg Documented by: Dextrose/Water (50% Dextrose In Water 50 Ml Syringe) 50 ml IVPUSH ASDIRECTED PRN PRN Reason: Hypoglycemia Diltiazem HCl (Diltiazem 25 Mg/5 Ml Sdv) 20 mg IVPUSH Q4H PRN PRN Reason: Tachycardia Finasteride (Finasteride 5 Mg Tab) 5 mg PO DAILY [facility] Last Admin: 12/11/20 09:39 Dose: 5 mg Documented by: Furosemide (Furosemide 40 Mg Tab) 60 mg PO QPM [facility] Last Admin: 12/10/20 18:04 Dose: 60 mg Documented by: Furosemide (Furosemide 40 Mg Tab) 40 mg PO QAM [facility] Last Admin: 12/11/20 09:39 Dose: 40 mg Documented by: Glucagon (Glucagon,Human Recombinant 1 Mg Vial) 1 mg IM ASDIRECTED PRN PRN Reason: Hypoglycemia Heparin Sodium (Porcine) (Heparin Sodium 5,000 Units/Ml Vial) 5,000 units SUBC UT Q8H [facility] Last Admin: 12/11/20 06:35 Dose: 5,000 units Documented by: Lactated Ringer's (Ringers, Lactated) 500 mls @ 999 mls/hr IV ASDIRECTED [facility] Last Admin: 12/09/20 13:21 Dose: 999 mls/hr Documented by: Metronidazole 500 mg/ Premix 100 mls @ 100 mls/hr IV Q6H [facility] Last Admin: 12/11/20 06:41 Dose: 100 mls/hr Documented by: Insulin Aspart (Insulin Aspart 100 Units/Ml 3 Ml Pen) 0 unit SUBCUT TIDAC [facility]; Protocol Last Admin: 12/11/20 07:44 Dose: Not Given Documented by: Levothyroxine Sodium (Levothyroxine 25 Mcg Tab) 25 mcg PO ACBREAKFAST [facility] Last Admin: 12/11/20 06:35 Dose: 25 mcg Documented by: Metoprolol Tartrate (Metoprolol Tartrate 50 Mg Tab) 100 mg PO BID [facility] Last Admin: 12/11/20 09:40 Dose: 100 mg Documented by: Mirtazapine (Mirtazapine 15 Mg Tab) 30 mg PO BEDTIME [facility] Last Admin: 12/10/20 23:24 Dose: 30 mg Documented by: Nystatin (Nystatin Topical Powder 15 Gm Bottle) 0 gm TOP QID [facility] Last Admin: 12/11/20 06:35 Dose: 1 applic Documented by: Ondansetron HCl (Ondansetron 4 Mg/2 Ml Sdv) 4 mg IVPUSH Q4H PRN PRN Reason: Nausea/Vomiting Psyllium Husk [ Metamucil] 660 Gm Powder 1 each PO QAM [facility] Last Admin: 12/11/20 09:44 Dose: Not Given Documented by: Prednisolone Acetate (Prednisolone Acetate 1% Ophth Susp 5 Ml Bottle) 1 ml EYERT TID [facility] Last Admin: 12/11/20 06:35 Dose: 1 drop Documented by: Psyllium Husk (Psyllium Husk Powder Sugar Free 5.85 Gm Packet) 1 pkt PO DAILY [facility] Last Admin: 12/11/20 09:45 Dose: 1 pkt Documented by: Sodium Chloride (Sodium Chloride 0.9% 2.5 Ml Syringe) 2.5 ml FLUSH ASDIRECTED PRN PRN Reason: Keep Vein Open Spironolactone (Spironolactone 25 Mg Tab) 25 mg PO DAILY [facility] Last Admin: 12/11/20 09:39 Dose: 25 mg Documented by: Tamsulosin HCl (Tamsulosin 0.4 Mg Cap.Er) 0.4 mg PO PCBREAKFAST [facility] Last Admin: 12/11/20 09:49 Dose: 0.4 mg Documented by: Discontinued Medications Aspirin (Aspirin 81 Mg Tab.Chew) 243 mg PO ONETIME ONE Stop: 12/05/20 14:15 Last Admin: 12/05/20 14:49 Dose: 243 mg Documented by: Enoxaparin Sodium (Enoxaparin 30 Mg/0.3 Ml Syringe) 30 mg SUBCUT Q24H [facility] Sodium Chloride (Normal Saline) 1,000 mls @ 999 mls/hr IV STAT ONE Stop: 12/05/20 14:53 Last Admin: 12/05/20 14:00 Dose: 999 mls/hr Documented by: Ceftriaxone Sodium/Dextrose 1 (gm/ Premix) 50 mls @ 100 mls/hr IV ONETIME ONE Stop: 12/05/20 17:43 Last Admin: 12/05/20 17:39 Dose: 100 mls/hr Documented by: Lactated Ringer's (Ringers, Lactated) 1,000 mls @ 125 mls/hr IV ASDIRECTED [facility] Last Admin: 12/07/20 05:50 Dose: 125 mls/hr Documented by: Levofloxacin/Dextrose 750 mg/ (Premix) 150 mls @ 100 mls/hr IV ONETIME ONE Stop: 12/05/20 20:29 Last Admin: 12/05/20 19:32 Dose: 100 mls/hr Documented by: Magnesium Sulfate 2 gm/ Premix 50 mls @ 12.5 mls/hr IV ONETIME ONE Stop: 12/06/20 02:47 Last Admin: 12/05/20 23:53 Dose: 12.5 mls/hr Documented by: Lactated Ringer's (Ringers, Lactated) 1,000 mls @ 999 mls/hr IV .BOLUS ONE Stop: 12/06/20 00:25 Last Admin: 12/05/20 23:54 Dose: 999 mls/hr Documented by: Levofloxacin/Dextrose 750 mg/ (Premix) 150 mls @ 150 mls/hr IV Q48H [facility] Last Admin: 12/09/20 20:01 Dose: 100 mls/hr Documented by: Metronidazole 500 mg/ Premix 100 mls @ 100 mls/hr IV QID [facility] Last Admin: 12/07/20 09:43 Dose: 100 mls/hr Documented by: Metronidazole 500 mg/ Premix 100 mls @ 100 mls/hr IV Q6H [facility] Last Admin: 12/10/20 12:37 Dose: Not Given Documented by: Magnesium Sulfate 4 gm/ Premix 100 mls @ 33.333 mls/hr IV ONETIME ONE Stop: 12/10/20 14:38 Last Admin: 12/10/20 12:24 Dose: 33.333 mls/hr Documented by: Levofloxacin (Levofloxacin 750 Mg Tab) 750 mg PO ONETIME ONE Stop: 12/11/20 09:56 Last Admin: 12/11/20 10:16 Dose: 750 mg Documented by: Metoprolol Tartrate (Metoprolol Tartrate 50 Mg Tab) 100 mg PO ONETIME ONE Stop: 12/05/20 20:01 Last Admin: 12/05/20 20:03 Dose: 100 mg Documented by: Sodium Chloride (Sodium Chloride 0.9% 2.5 Ml Syringe) 2.5 ml FLUSH ASDIRECTED PRN PRN Reason: Keep Vein Open Last Admin: 12/05/20 14:00 Dose: 2.5 ml Documented by: Sodium Chloride (Sodium Chloride 0.9% 10 Ml Syringe) 10 ml FLUSH ASDIRECTED PRN PRN Reason: Keep Vein Open Last Admin: 12/05/20 14:00 Dose: 10 ml Documented by: Tamsulosin HCl (Tamsulosin 0.4 Mg Cap.Er) 0[facility]
--- NOTE | 2020-12-11 14:44 | ECHO ---
EXAM DATE: 12/09/20 PATIENT'S AGE: 85 The ECHO report has been scanned into [employer] and can be seen in this patient's EMR (Electronic Medical Record) under the REPORTS section. The report has also been scanned into PACS. LISBETH
== END 2020-12-11 14:52 | disposition home health service (06) | DRG 682 ==
LOC: MW.ED 13:37 → MW.MS 17:40 → OBSVTOIN 12-09 13:33 → MW.ED 12-09 13:37 → MW.MS 12-09 16:53
PROVIDERS: ADMIT Student in an Organized Health Care Education/Training Program; ATTEND Student in an Organized Health Care Education/Training Program
DX: N17.9 Acute kidney failure, unspecified (principal); E07.9 Disorder of thyroid, unspecified; R53.1 Weakness; J18.9 Pneumonia, unspecified organism; N13.8 Other obstructive and reflux uropathy; G45.8 Other transient cerebral ischemic attacks and related syndromes; I13.0 Hypertensive heart and chronic kidney disease with heart failure and stage 1 through stage 4 chronic kidney disease, or unspecified chronic kidney disease; I48.92 Unspecified atrial flutter; I48.91 Unspecified atrial fibrillation; Z66 Do not resuscitate; E11.65 Type 2 diabetes mellitus with hyperglycemia; E78.5 Hyperlipidemia, unspecified; Z97.0 Presence of artificial eye; I50.9 Heart failure, unspecified; I27.82 Chronic pulmonary embolism; N18.30 Chronic kidney disease, stage 3 unspecified; H91.93 Unspecified hearing loss, bilateral; H35.30 Unspecified macular degeneration; N18.9 Chronic kidney disease, unspecified; D64.9 Anemia, unspecified; K37 Unspecified appendicitis; R33.9 Retention of urine, unspecified; Z96.0 Presence of urogenital implants; E11.22 Type 2 diabetes mellitus with diabetic chronic kidney disease; H02.105 Unspecified ectropion of left lower eyelid; I25.10 Atherosclerotic heart disease of native coronary artery without angina pectoris; Z63.8 Other specified problems related to primary support group; H54.7 Unspecified visual loss; Z20.822 Contact with and (suspected) exposure to COVID-19; Z79.890 Hormone replacement therapy; Z86.73 Personal history of transient ischemic attack (TIA), and cerebral infarction without residual deficits; I25.2 Old myocardial infarction; Z94.7 Corneal transplant status; Z86.711 Personal history of pulmonary embolism; Z79.01 Long term (current) use of anticoagulants; Z79.899 Other long term (current) drug therapy; Z79.84 Long term (current) use of oral hypoglycemic drugs; Z88.0 Allergy status to penicillin; Z91.018 Allergy to other foods; H91.90 Unspecified hearing loss, unspecified ear; Z97.4 Presence of external hearing-aid; E78.00 Pure hypercholesterolemia, unspecified; F32.9 Major depressive disorder, single episode, unspecified; Z90.89 Acquired absence of other organs; Z98.49 Cataract extraction status, unspecified eye
CPT/HCPCS: 0240U; 36415; 51701; 51702; 51703; 71045; 74176; 80048; 80053; 81003; 82947; 83690; 83735; 83880; 84100; 84484; 85025; 85379; 93005; 93306; 93970; 94640; 96365; 96366; 96367; 96372; 96375; 96376; 99285; 93010; 99284; A9270-GY; G0378; J0696; J1644; J1815-GY; J1956; J3475; J3490; J7030; J7120; J7620-GY

== ENCOUNTER 2022-02-12 13:28 | Emergency (ER) | payer MEDICARE ==
[2022-02-12] MEDS ORDERED: Sodium Chloride 0.9% 2.5 ML Syringe FLUSH PRN (13:41)
[2022-02-12] MEDS ORDERED: Sodium Chloride 0.9% 10 ML Syringe FLUSH PRN (13:41)
[2022-02-12 15:08] LABS: CARBON DIOXIDE,CO2 26.7 mmol/L (21.0-32.0); POTASSIUM,K 4.3 mmol/L (3.5-5.1)
[2022-02-12] MEDS ORDERED: Sodium Chloride 0.9% 500 ML IV SCH (15:15)
[2022-02-12] MEDS ORDERED: Doxycycline 100 MG Cap PO ONE (17:56)
[2022-02-12] MEDS ORDERED: predniSONE 20 MG Tab PO ONE (17:56)
[2022-02-12] MEDS ORDERED: Iopamidol 755 MG/ML 500 ML Multipack Bottle IVPUSH STA (18:03)
[2022-02-12 18:11] VITALS: BP 151/69; PULSE 81
== END 2022-02-12 18:10 | disposition home or self-care (01) ==
LOC: MW.ED 13:28
DX: J40 Bronchitis, not specified as acute or chronic (principal); E11.9 Type 2 diabetes mellitus without complications; Z88.0 Allergy status to penicillin; Z91.010 Allergy to peanuts; Z79.899 Other long term (current) drug therapy; Z20.822 Contact with and (suspected) exposure to COVID-19
CPT/HCPCS: 36415; 71045; 71275; 80053; 83880; 84484; 85025; 85379; 93005; 99285; A9270; J3490; J7040; Q9967; U0002; 93010; 99284

== ENCOUNTER 2022-02-15 10:45 | Emergency (ER) | payer MEDICARE ==
[2022-02-15] MEDS ORDERED: Sodium Chloride 0.9% 10 ML Syringe FLUSH PRN (11:57)
[2022-02-15] MEDS ORDERED: Sodium Chloride 0.9% 2.5 ML Syringe FLUSH PRN (11:57)
[2022-02-15] MEDS ORDERED: Furosemide 40 MG/4 ML VIAL IVPUSH ONE (13:06)
[2022-02-15 13:15] LABS: CARBON DIOXIDE,CO2 26.6 mmol/L (21.0-32.0); POTASSIUM,K 4.6 mmol/L (3.5-5.1)
[2022-02-15 14:08] VITALS: BP 151/63; PULSE 75
== END 2022-02-15 14:29 | disposition home or self-care (01) ==
LOC: MW.ED 10:45
DX: J22 Unspecified acute lower respiratory infection (principal); I11.0 Hypertensive heart disease with heart failure; I50.9 Heart failure, unspecified; I48.91 Unspecified atrial fibrillation; E78.00 Pure hypercholesterolemia, unspecified; I25.2 Old myocardial infarction; E11.9 Type 2 diabetes mellitus without complications; Z86.73 Personal history of transient ischemic attack (TIA), and cerebral infarction without residual deficits; Z88.0 Allergy status to penicillin; Z91.048 Other nonmedicinal substance allergy status; Z91.018 Allergy to other foods; Z79.899 Other long term (current) drug therapy
CPT/HCPCS: 36415; 71045; 80053; 83880; 84484; 85025; 93005; 96374; 99285; J1940; J3490

== ENCOUNTER 2022-09-03 01:19 | Inpatient (IN) | payer MEDICARE ==
[2022-09-03] MEDS ORDERED: Sodium Chloride 0.9% 2.5 ML Syringe FLUSH PRN (01:35)
[2022-09-03] MEDS ORDERED: Sodium Chloride 0.9% 10 ML Syringe FLUSH PRN (01:35)
[2022-09-03 02:23] LABS: CARBON DIOXIDE,CO2 31.2 mmol/L (21.0-32.0); POTASSIUM,K 4.2 mmol/L (3.5-5.1)
[2022-09-03] MEDS ORDERED: cefTRIAXone 2 GM in Premix Bag 1 BAG IV ONE (02:36)
[2022-09-03] MEDS ORDERED: Azithromycin 500 MG in Sodium Chloride 0.9% 250 ML IV ONE (02:36)
[2022-09-03] MEDS ORDERED: Furosemide 40 MG/4 ML VIAL IVPUSH ONE (02:37)
[2022-09-03] MEDS: Doxycycline 100 MG in Sodium Chloride 0.9% 100 ML IV SCH ×2 (03:27→14:05)
[2022-09-03] MEDS ORDERED: Acetaminophen 500 MG Tab PO ONE (03:44)
[2022-09-03] MEDS ORDERED: Acetaminophen 325 MG Tab PO PRN (04:58)
[2022-09-03 08:08] LABS: CARBON DIOXIDE,CO2 29.6 mmol/L (21.0-32.0); POTASSIUM,K 4.1 mmol/L (3.5-5.1)
[2022-09-03] MEDS ORDERED: 50% Dextrose in Water 50 ML Syringe IVPUSH PRN (13:16)
[2022-09-03] MEDS ORDERED: Glucagon,Human Recombinant 1 MG Vial IM PRN (13:16)
[2022-09-03] MEDS ORDERED: Carboxymethylcellulose Sodium 0.5% Ophth Soln 0.4 ML UD Box of 30 EYEBOTH PRN (13:41)
[2022-09-03] MEDS: Citalopram 20 MG Tab PO SCH (14:04)
[2022-09-03] MEDS: Furosemide 40 MG Tab PO SCH (14:04)
[2022-09-03] MEDS: Nystatin Topical Powder 15 GM Bottle TOP SCH ×2 (14:05→21:44)
[2022-09-03] MEDS: Heparin Sodium 5,000 Units/ML Vial SUBCUT SCH (14:06)
[2022-09-03] MEDS: Metoprolol Tartrate 50 MG Tab PO SCH ×2 (14:30→20:21)
[2022-09-03] MEDS: Pantoprazole 40 MG Tab.CR PO SCH (17:41)
[2022-09-03] MEDS: Insulin Aspart 100 Units/ML 3 ML Pen SUBCUT SCH (17:41)
[2022-09-03] MEDS: atorvaSTATin 40 MG Tab PO SCH (20:21)
[2022-09-03] MEDS: Mirtazapine 15 MG Tab PO SCH (20:21)
[2022-09-03] MEDS: prednisoLONE Acetate 1% Ophth Susp 5 ML Bottle EYERT SCH (20:25)
[2022-09-04] MEDS: Heparin Sodium 5,000 Units/ML Vial SUBCUT SCH ×2 (01:12→14:09)
[2022-09-04] MEDS: cefTRIAXone 1 GM in Sodium Chloride 0.9% 50 ML IV SCH (01:31)
[2022-09-04] MEDS: Doxycycline 100 MG in Sodium Chloride 0.9% 100 ML IV SCH ×2 (02:01→14:09)
[2022-09-04] MEDS: Levothyroxine 25 MCG Tab PO SCH ×2 (06:11→06:30)
[2022-09-04 06:12] LABS: CARBON DIOXIDE,CO2 32.5 mmol/L (21.0-32.0); POTASSIUM,K 3.7 mmol/L (3.5-5.1)
[2022-09-04] MEDS: Nystatin Topical Powder 15 GM Bottle TOP SCH ×3 (06:12→22:07)
[2022-09-04] MEDS: Pantoprazole 40 MG Tab.CR PO SCH ×3 (06:12→16:11)
[2022-09-04] MEDS: Insulin Aspart 100 Units/ML 3 ML Pen SUBCUT SCH ×3 (07:57→16:16)
[2022-09-04] MEDS: Metoprolol Tartrate 50 MG Tab PO SCH ×2 (08:02→22:05)
[2022-09-04] MEDS: Citalopram 20 MG Tab PO SCH (08:03)
[2022-09-04] MEDS: Furosemide 40 MG Tab PO SCH ×2 (08:03→14:09)
[2022-09-04] MEDS: prednisoLONE Acetate 1% Ophth Susp 5 ML Bottle EYERT SCH ×2 (08:04→22:07)
[2022-09-04] MEDS: Psyllium Husk Powder Sugar Free 5.85 GM Packet PO SCH (08:08)
[2022-09-04] MEDS: atorvaSTATin 40 MG Tab PO SCH (22:05)
[2022-09-04] MEDS: Mirtazapine 15 MG Tab PO SCH (22:06)
[2022-09-05] MEDS: cefTRIAXone 1 GM in Sodium Chloride 0.9% 50 ML IV SCH (02:14)
[2022-09-05] MEDS: Heparin Sodium 5,000 Units/ML Vial SUBCUT SCH (02:15)
[2022-09-05] MEDS: Doxycycline 100 MG in Sodium Chloride 0.9% 100 ML IV SCH (03:10)
[2022-09-05] MEDS: Levothyroxine 25 MCG Tab PO SCH ×2 (06:25→06:33)
[2022-09-05] MEDS: Nystatin Topical Powder 15 GM Bottle TOP SCH (06:25)
[2022-09-05] MEDS: Pantoprazole 40 MG Tab.CR PO SCH ×2 (06:25→06:33)
[2022-09-05 06:48] LABS: CARBON DIOXIDE,CO2 31.6 mmol/L (21.0-32.0); POTASSIUM,K 3.8 mmol/L (3.5-5.1)
[2022-09-05] MEDS: Insulin Aspart 100 Units/ML 3 ML Pen SUBCUT SCH ×2 (08:03→11:06)
[2022-09-05] MEDS: Citalopram 20 MG Tab PO SCH (08:17)
[2022-09-05] MEDS: Metoprolol Tartrate 50 MG Tab PO SCH (08:17)
[2022-09-05] MEDS: Furosemide 40 MG Tab PO SCH (08:18)
[2022-09-05] MEDS: prednisoLONE Acetate 1% Ophth Susp 5 ML Bottle EYERT SCH (08:19)
[2022-09-05] MEDS: Psyllium Husk Powder Sugar Free 5.85 GM Packet PO SCH (08:21)
[2022-09-05 12:06] VITALS: BP 140/50; PULSE 70
== END 2022-09-05 13:50 | DRG 193 ==
LOC: MW.ED 01:19 → MW.MS 02:43
PROVIDERS: ADMIT Internal Medicine; ATTEND Internal Medicine
DX: J18.9 Pneumonia, unspecified organism (principal); I50.33 Acute on chronic diastolic (congestive) heart failure; J96.01 Acute respiratory failure with hypoxia; I48.11 Longstanding persistent atrial fibrillation; I25.10 Atherosclerotic heart disease of native coronary artery without angina pectoris; I48.91 Unspecified atrial fibrillation; E78.5 Hyperlipidemia, unspecified; R33.9 Retention of urine, unspecified; Z20.822 Contact with and (suspected) exposure to COVID-19; E11.9 Type 2 diabetes mellitus without complications; F32.A Depression, unspecified; H02.105 Unspecified ectropion of left lower eyelid; I11.0 Hypertensive heart disease with heart failure; D64.9 Anemia, unspecified; H91.90 Unspecified hearing loss, unspecified ear; H35.30 Unspecified macular degeneration; E78.00 Pure hypercholesterolemia, unspecified; I25.2 Old myocardial infarction; Z86.711 Personal history of pulmonary embolism; Z98.890 Other specified postprocedural states; Z86.73 Personal history of transient ischemic attack (TIA), and cerebral infarction without residual deficits; Z98.49 Cataract extraction status, unspecified eye; Z90.89 Acquired absence of other organs; Z94.7 Corneal transplant status; Z82.49 Family history of ischemic heart disease and other diseases of the circulatory system; Z88.0 Allergy status to penicillin; Z88.8 Allergy status to other drugs, medicaments and biological substances; Z91.018 Allergy to other foods
CPT/HCPCS: 36415; 71045; 71045-26; 80048; 80053; 82947; 83605; 83880; 84484; 85025; 87040; 93005; 93010; 93306; 96365; 96375; 99285; 99285-25; A9270-GY; J0696; J1644; J1815-GY; J1940; J3490; J7050; U0002

== ENCOUNTER 2023-01-18 23:46 | Emergency (ER) | payer MEDICARE ==
[2023-01-18] MEDS ORDERED: Sodium Chloride 0.9% 2.5 ML Syringe FLUSH PRN (23:50)
[2023-01-18] MEDS ORDERED: Sodium Chloride 0.9% 10 ML Syringe FLUSH PRN (23:50)
[2023-01-18] MEDS ORDERED: Sodium Chloride 0.9% 20 ML SDV IV PRN (23:50)
[2023-01-18 23:58] LABS: BASOPHILS PERCENT AUTO 0.2 % (0.0-1.5); EOSINOPHILS ABSOLUTE AUTO 0.2 K/uL (0.0-0.7); EOSINOPHILS PERCENT AUTO 3.3 % (0.0-7.0); HEMATOCRIT 33.7 % (38.0-50.0); HEMOGLOBIN 11.1 g/dL (13.0-17.0); LYMPHOCYTES ABSOLUTE AUTO 1.6 K/uL (0.6-2.4); LYMPHOCYTES PERCENT AUTO 27.1 % (16.0-40.0); MEAN CORPUSCULAR HEMOGLOBIN 31.6 pg (27.0-32.0); MEAN CORPUSCULAR HGB CONC 32.9 g/dL (31.0-37.0); MONOCYTES ABSOLUTE AUTO 0.5 K/uL (0.0-0.8); MONOCYTES PERCENT AUTO 8.9 % (0.0-15.0); NEUTROPHILS ABSOLUTE AUTO 3.5 K/uL (1.4-5.7); NEUTROPHILS PERCENT AUTO 60.5 % (48.0-80.0); NRBC ABSOLUTE 0 K/uL; PLATELET COUNT,PLT 154 K/uL (150-400); RED BLOOD CELL COUNT 3.51 M/uL (4.50-5.90); WHITE BLOOD CELL COUNT,WBC 5.84 K/uL (4.0-11.0)
[2023-01-19] MEDS ORDERED: Iopamidol 755 MG/ML 500 ML Multipack Bottle IVPUSH ONE (00:07)
[2023-01-19 00:10] VITALS: BP 140/52; PULSE 68
[2023-01-19 00:21] LABS: INR 1.07 (0.86-1.11); PTT,PARTIAL THROMBOPLSTIN TIME 29.2 SEC (23.9-30.7)
[2023-01-19 00:22] LABS: A/G RATIO 0.7 (0.9-1.6); ALANINE AMINOTRANSFERASE,ALT 25 IU/L (14-63); ALBUMIN 2.8 g/dL (3.4-5.0); ALKALINE PHOSPHATASE 123 U/L (46-116); ASPARTATE AMNIOTRANSFERASE,AST 19 IU/L (15-37); BILIRUBIN TOTAL 0.3 mg/dL (0.2-1.0); BLOOD UREA NITROGEN,BUN 47 mg/dL (7.0-18.0); CARBON DIOXIDE,CO2 28.7 mmol/L (21.0-32.0); CHLORIDE,CL 104 mmol/L (98-107); ESTIMATED GFR 32 mL/min (>60); GLUCOSE RANDOM 197 mg/dL (74-106); POTASSIUM,K 3.7 mmol/L (3.5-5.1); PROTEIN TOTAL,TP 6.8 g/dL (6.4-8.2); SODIUM,NA 141 mmol/L (136-148)
[2023-01-19] MEDS ORDERED: Tenecteplase 50 MG Kit IVPUSH ONE (00:25)
[2023-01-19 00:37] LABS: APPEARANCE,URINE SLT CLOUDY; BILIRUBIN,URINE NEGATIVE (NEGATIVE); COLOR,URINE YELLOW; GLUCOSE,URINE NEGATIVE (NEGATIVE); KETONES,URINE NEGATIVE (NEGATIVE); LEUKOCYTE ESTERASE,URINE MODERATE (NEGATIVE); NITRITE,URINE NEGATIVE (NEGATIVE); OCCULT BLOOD,URINE MODERATE (NEGATIVE); PROTEIN,URINE TRACE mg/dL (NEGATIVE); UROBILINOGEN,URINE 0.2 EU/dL (<2.0)
[2023-01-19 00:45] LABS: BACTERIA,URINE 2+ (NEGATIVE); RBC,URINE 0-2 (0-2/HPF); WBC,URINE TO NUMEROUS TO COUNT (0-5/HPF)
== END 2023-01-19 02:39 ==
LOC: MW.ED 23:46
DX: I63.9 Cerebral infarction, unspecified (principal); E78.00 Pure hypercholesterolemia, unspecified; I10 Essential (primary) hypertension; I25.2 Old myocardial infarction; E11.9 Type 2 diabetes mellitus without complications; Z91.018 Allergy to other foods; Z79.84 Long term (current) use of oral hypoglycemic drugs; Z79.899 Other long term (current) drug therapy; Z88.0 Allergy status to penicillin
CPT/HCPCS: 36415; 37195; 70450; 70496; 70498; 71045; 80053; 81001; 82947; 84484; 85025; 85610; 85730; 93005; 99285; J3101; J3490; Q9967; 93010

== ENCOUNTER 2023-07-15 23:15 | Inpatient (IN) | payer MEDICARE ==
[2023-07-15] MEDS ORDERED: Sodium Chloride 0.9% 2.5 ML Syringe FLUSH PRN (23:17)
[2023-07-15] MEDS ORDERED: Sodium Chloride 0.9% 10 ML Syringe FLUSH PRN (23:17)
[2023-07-15 23:46] LABS: BASOPHILS ABSOLUTE AUTO 0.01 K/uL (0.00-0.20); BASOPHILS PERCENT AUTO 0.2 % (0.0-1.0); EOSINOPHILS ABSOLUTE AUTO 0.14 K/uL (0.00-0.45); EOSINOPHILS PERCENT AUTO 2.5 % (0.0-6.0); HEMATOCRIT 35.7 % (42.0-52.0); HEMOGLOBIN 11.9 g/dL (14.0-18.0); IMMATURE GRAN ABSOLUTE AUTO 0.01 K/uL (0.00-0.05); IMMATURE GRAN PERCENT AUTO 0.2 % (0.0-0.4); LYMPHOCYTES ABSOLUTE AUTO 1.06 K/uL (1.00-4.80); LYMPHOCYTES PERCENT AUTO 19.2 % (24.0-44.0); MEAN CORPUSCULAR HEMOGLOBIN 32.3 pg (28.0-32.0); MEAN CORPUSCULAR HGB CONC 33.3 g/dL (32.0-36.0); MEAN PLATELET VOLUME 9.1 fL (9.4-12.4); MONOCYTES PERCENT AUTO 12.7 % (0.0-8.0); NEUTROPHILS PERCENT AUTO 65.2 % (41.0-71.0); PLATELET COUNT,PLT 111 K/uL (150-400); RED BLOOD CELL COUNT 3.68 M/uL (4.52-5.90); WHITE BLOOD CELL COUNT,WBC 5.52 K/uL (3.9-11.3)
[2023-07-16 00:10] LABS: CORONAVIRUS COVID-19 NAA NEGATIVE (NEGATIVE); INFLUENZA A NAA POSITIVE (NEGATIVE); INFLUENZA B NAA NEGATIVE (NEGATIVE); RESPIRATORY SYNCYTIAL VIR NAA NEGATIVE (NEGATIVE)
[2023-07-16 00:22] LABS: A/G RATIO 0.8 (0.9-1.6); BILIRUBIN TOTAL 0.4 mg/dL (0.2-1.0); CALCIUM 8.5 mg/dL (8.5-10.1); CARBON DIOXIDE,CO2 26.4 mmol/L (21.0-32.0); CREATININE 2.5 mg/dL (0.8-1.3); EST CRCL DRUG DOSING (CG) 21.21 mL/min; POTASSIUM,K 4.1 mmol/L (3.5-5.1); PROTEIN TOTAL,TP 6.7 g/dL (6.4-8.2)
[2023-07-16 00:23] LABS: LACTIC ACID 1.1 mmol/L (0.4-2.0)
[2023-07-16] MEDS ORDERED: Levofloxacin/Dextrose 5%-Water 750 MG in Premix Bag 1 BAG IV ONE (01:28)
[2023-07-16] MEDS ORDERED: Oseltamivir 30 MG Cap PO SCH ×2 (01:30→21:00)
[2023-07-16 06:19] LABS: EOSINOPHILS ABSOLUTE AUTO 0.02 K/uL (0.00-0.45); EOSINOPHILS PERCENT AUTO 0.3 % (0.0-6.0); HEMATOCRIT 37.7 % (42.0-52.0); HEMOGLOBIN 12.7 g/dL (14.0-18.0); IMMATURE GRAN ABSOLUTE AUTO 0.01 K/uL (0.00-0.05); IMMATURE GRAN PERCENT AUTO 0.1 % (0.0-0.4); LYMPHOCYTES ABSOLUTE AUTO 1.77 K/uL (1.00-4.80); LYMPHOCYTES PERCENT AUTO 25.8 % (24.0-44.0); MEAN CORPUSCULAR HEMOGLOBIN 32.3 pg (28.0-32.0); MEAN CORPUSCULAR HGB CONC 33.7 g/dL (32.0-36.0); MEAN CORPUSCULAR VOLUME 95.9 fL (83.0-99.0); MEAN PLATELET VOLUME 9.3 fL (9.4-12.4); MONOCYTES PERCENT AUTO 11.7 % (0.0-8.0); NEUTROPHILS ABSOLUTE AUTO 4.26 K/uL (1.80-7.70); NEUTROPHILS PERCENT AUTO 62.1 % (41.0-71.0); PLATELET COUNT,PLT 117 K/uL (150-400); RED BLOOD CELL COUNT 3.93 M/uL (4.52-5.90); WHITE BLOOD CELL COUNT,WBC 6.86 K/uL (3.9-11.3)
[2023-07-16 06:38] LABS: CALCIUM 8.3 mg/dL (8.5-10.1); CARBON DIOXIDE,CO2 27.5 mmol/L (21.0-32.0); CREATININE 2.4 mg/dL (0.8-1.3); EST CRCL DRUG DOSING (CG) 22.09 mL/min; POTASSIUM,K 4.3 mmol/L (3.5-5.1)
[2023-07-16] MEDS ORDERED: Glucagon,Human Recombinant 1 MG Vial IM PRN (07:13)
[2023-07-16] MEDS ORDERED: 50% Dextrose in Water 50 ML Syringe IVPUSH PRN (07:13)
[2023-07-16] MEDS ORDERED: Ondansetron 4 MG/2 ML SDV IVPUSH PRN (07:51)
[2023-07-16] MEDS ORDERED: Acetaminophen 325 MG Tab PO PRN (07:51)
[2023-07-16] MEDS: Insulin Aspart 100 Units/ML 3 ML Pen SUBCUT SCH ×3 (08:57→17:11)
[2023-07-16] MEDS: Azithromycin 500 MG in Sodium Chloride 0.9% 250 ML IV SCH (09:04)
[2023-07-16] MEDS: Heparin Sodium 5,000 Units/ML Vial SUBCUT SCH ×3 (09:04→23:18)
[2023-07-16] MEDS: Finasteride 5 MG Tab PO SCH (09:05)
[2023-07-16] MEDS: Citalopram 20 MG Tab PO SCH (09:05)
[2023-07-16] MEDS: Metoprolol Tartrate 50 MG Tab PO SCH ×2 (09:06→20:35)
[2023-07-16] MEDS: cefTRIAXone 1 GM in Sodium Chloride 0.9% 50 ML IV SCH (10:23)
[2023-07-16] MEDS ORDERED: Carbamide Peroxide 6.5% Otic Soln 15 ML Bottle EARBOTH PRN (10:50)
[2023-07-16] MEDS ORDERED: Aluminum Hydroxide/Magnesium Hydroxide/Simethicone XS Susp 30 ML Cup PO PRN (10:50)
[2023-07-16] MEDS: Levothyroxine 25 MCG Tab PO SCH (11:19)
[2023-07-16] MEDS ORDERED: Tamsulosin 0.4 MG Cap.ER PO SCH (17:30)
[2023-07-16] MEDS: Oseltamivir 30 MG Cap PO SCH (20:35)
[2023-07-16] MEDS: atorvaSTATin 40 MG Tab PO SCH (20:35)
[2023-07-16] MEDS: Mirtazapine 15 MG Tab PO SCH (20:36)
[2023-07-16] MEDS: Insulin Glargine,Hum.Rec.Anlog 100 UNIT/ML 3 ML Pen SUBCUT SCH (20:56)
[2023-07-16] MEDS ORDERED: prednisoLONE Acetate 1% Ophth Susp 5 ML Bottle EYERT SCH (21:00)
[2023-07-16] MEDS: prednisoLONE Acetate 1% Ophth Susp 5 ML Bottle EYERT SCH (21:30)
[2023-07-16] MEDS: Albuterol/Ipratropium 3.0-0.5 MG/3 ML Neb Soln NEB PRN (23:18)
[2023-07-17] MEDS: Benzocaine/Cetylpyridinium/Menthol Lozenge MUCMEM PRN ×2 (02:03→09:54)
[2023-07-17] MEDS: Levothyroxine 25 MCG Tab PO SCH ×2 (06:01→07:09)
[2023-07-17 06:33] LABS: HEMATOCRIT 35.6 % (42.0-52.0); HEMOGLOBIN 11.8 g/dL (14.0-18.0); IMMATURE GRAN ABSOLUTE AUTO 0.02 K/uL (0.00-0.05); IMMATURE GRAN PERCENT AUTO 0.3 % (0.0-0.4); LYMPHOCYTES ABSOLUTE AUTO 1.31 K/uL (1.00-4.80); LYMPHOCYTES PERCENT AUTO 20.5 % (24.0-44.0); MEAN CORPUSCULAR HEMOGLOBIN 31.8 pg (28.0-32.0); MEAN CORPUSCULAR HGB CONC 33.1 g/dL (32.0-36.0); MONOCYTES ABSOLUTE AUTO 0.54 K/uL (0.00-0.80); MONOCYTES PERCENT AUTO 8.4 % (0.0-8.0); NEUTROPHILS ABSOLUTE AUTO 4.53 K/uL (1.80-7.70); NEUTROPHILS PERCENT AUTO 70.8 % (41.0-71.0); PLATELET COUNT,PLT 113 K/uL (150-400); RED BLOOD CELL COUNT 3.71 M/uL (4.52-5.90)
[2023-07-17 07:00] LABS: CALCIUM 8.1 mg/dL (8.5-10.1); CARBON DIOXIDE,CO2 26.8 mmol/L (21.0-32.0); CREATININE 2.5 mg/dL (0.8-1.3); EST CRCL DRUG DOSING (CG) 21.21 mL/min; POTASSIUM,K 4.5 mmol/L (3.5-5.1)
[2023-07-17] MEDS: Insulin Aspart 100 Units/ML 3 ML Pen SUBCUT SCH ×3 (07:44→16:25)
[2023-07-17] MEDS ORDERED: Psyllium Husk Powder Sugar Free 5.85 GM Packet PO PRN (09:00)
[2023-07-17] MEDS: glipiZIDE 5 MG Tab.ER PO SCH (09:36)
[2023-07-17] MEDS: Metoprolol Tartrate 50 MG Tab PO SCH ×2 (09:37→21:02)
[2023-07-17] MEDS: Citalopram 20 MG Tab PO SCH (09:38)
[2023-07-17] MEDS: Heparin Sodium 5,000 Units/ML Vial SUBCUT SCH ×3 (09:38→23:18)
[2023-07-17] MEDS: Finasteride 5 MG Tab PO SCH (09:38)
[2023-07-17] MEDS: Azithromycin 500 MG in Sodium Chloride 0.9% 250 ML IV SCH (09:39)
[2023-07-17] MEDS: prednisoLONE Acetate 1% Ophth Susp 5 ML Bottle EYERT SCH ×2 (09:41→21:03)
[2023-07-17] MEDS: Linagliptin [Tradjenta] 5 MG Tablet PO SCH (09:42)
[2023-07-17] MEDS ORDERED: Sodium Chloride 0.9% 500 ML IV SCH (10:45)
[2023-07-17] MEDS: cefTRIAXone 1 GM in Sodium Chloride 0.9% 50 ML IV SCH (11:48)
[2023-07-17] MEDS: Mirtazapine 15 MG Tab PO SCH (21:01)
[2023-07-17] MEDS: Albuterol/Ipratropium 3.0-0.5 MG/3 ML Neb Soln NEB PRN (21:01)
[2023-07-17] MEDS: Oseltamivir 30 MG Cap PO SCH (21:01)
[2023-07-17] MEDS: atorvaSTATin 40 MG Tab PO SCH (21:02)
[2023-07-17] MEDS: Insulin Glargine,Hum.Rec.Anlog 100 UNIT/ML 3 ML Pen SUBCUT SCH (21:13)
[2023-07-18] MEDS: Levothyroxine 25 MCG Tab PO SCH ×2 (05:31→06:32)
[2023-07-18] MEDS: Albuterol/Ipratropium 3.0-0.5 MG/3 ML Neb Soln NEB PRN (05:31)
[2023-07-18] MEDS: Insulin Aspart 100 Units/ML 3 ML Pen SUBCUT SCH (07:55)
[2023-07-18] MEDS: Azithromycin 500 MG in Sodium Chloride 0.9% 250 ML IV SCH (08:04)
[2023-07-18] MEDS: cefTRIAXone 1 GM in Sodium Chloride 0.9% 50 ML IV SCH (08:04)
[2023-07-18] MEDS: Heparin Sodium 5,000 Units/ML Vial SUBCUT SCH (09:52)
[2023-07-18] MEDS: glipiZIDE 5 MG Tab.ER PO SCH (09:54)
[2023-07-18] MEDS: Finasteride 5 MG Tab PO SCH (09:57)
[2023-07-18] MEDS: Citalopram 20 MG Tab PO SCH (09:57)
[2023-07-18] MEDS: Metoprolol Tartrate 50 MG Tab PO SCH (10:01)
[2023-07-18] MEDS: prednisoLONE Acetate 1% Ophth Susp 5 ML Bottle EYERT SCH (10:01)
[2023-07-18] MEDS: Linagliptin [Tradjenta] 5 MG Tablet PO SCH (10:45)
[2023-07-18 12:06] VITALS: BP 140/62; PULSE 100
[2023-07-18] MEDS ORDERED: Nystatin Topical Powder 15 GM Bottle TOP SCH (14:00)
== END 2023-07-18 12:50 | DRG 193 ==
LOC: MW.ED 23:15 → MW.MS 07-16 01:26
PROVIDERS: ADMIT Internal Medicine; ATTEND Internal Medicine
DX: J10.1 Influenza due to other identified influenza virus with other respiratory manifestations (principal); I10 Essential (primary) hypertension; J10.00 Influenza due to other identified influenza virus with unspecified type of pneumonia; E11.9 Type 2 diabetes mellitus without complications; I50.33 Acute on chronic diastolic (congestive) heart failure; J96.01 Acute respiratory failure with hypoxia; N17.9 Acute kidney failure, unspecified; I48.11 Longstanding persistent atrial fibrillation; I13.0 Hypertensive heart and chronic kidney disease with heart failure and stage 1 through stage 4 chronic kidney disease, or unspecified chronic kidney disease; E03.9 Hypothyroidism, unspecified; E78.00 Pure hypercholesterolemia, unspecified; F41.9 Anxiety disorder, unspecified; Z66 Do not resuscitate; F32.A Depression, unspecified; N40.1 Benign prostatic hyperplasia with lower urinary tract symptoms; D63.1 Anemia in chronic kidney disease; H35.30 Unspecified macular degeneration; E11.22 Type 2 diabetes mellitus with diabetic chronic kidney disease; N18.9 Chronic kidney disease, unspecified; Z79.899 Other long term (current) drug therapy; Z79.4 Long term (current) use of insulin; Z79.890 Hormone replacement therapy; Z88.8 Allergy status to other drugs, medicaments and biological substances; Z91.018 Allergy to other foods; Z88.0 Allergy status to penicillin; I25.2 Old myocardial infarction; Z86.711 Personal history of pulmonary embolism; Z98.49 Cataract extraction status, unspecified eye; Z98.890 Other specified postprocedural states; Z90.89 Acquired absence of other organs; Z86.73 Personal history of transient ischemic attack (TIA), and cerebral infarction without residual deficits; Z11.52 Encounter for screening for COVID-19
CPT/HCPCS: 0241U; 36415; 71045; 80048; 80053; 82947; 83605; 84484; 85025; 87040; 99285; 93010; 99284; A9270-GY; J0456; J0696; J1644; J1815-GY; J1956; J3490; J7040; J7050; J7620-GY

== ENCOUNTER 2023-12-29 20:02 | Emergency (ER) | payer MEDICARE ==
[2023-12-29] MEDS: Norepinephrine Bit/D5W Premix 250 ML IV SCH (20:02)
[2023-12-29] MEDS: EPINEPHrine 1:10,000 1 MG/10 ML Syringe IVPUSH ONE (20:02)
[2023-12-29] MEDS: Sodium Chloride 0.9% 1,000 ML IV ONE (20:02)
[2023-12-29] MEDS: Ketamine 500 mg/10 ML MDV IV ONE (20:05)
[2023-12-29] MEDS ORDERED: Rocuronium 100 MG/10 ML MDV IV ONE (20:05)
[2023-12-29 20:11] LABS: BASE EXCESS VENOUS -8.1 (-2.0-3.0); PH,VENOUS 7.07 (7.31-7.41)
[2023-12-29 20:12] LABS: HEMOGLOBIN 12.3 g/dL (14.0-18.0); MEAN CORPUSCULAR HEMOGLOBIN 30.7 pg (28.0-32.0); MEAN CORPUSCULAR HGB CONC 31.5 g/dL (32.0-36.0); MEAN CORPUSCULAR VOLUME 97.3 fL (83.0-99.0); MEAN PLATELET VOLUME 9.2 fL (9.4-12.4); NRBC ABSOLUTE 0.02 K/uL (0.00-0.02); NRBC PERCENT 0.1 /100WBC (0.0-0.2); PLATELET COUNT,PLT 183 K/uL (150-400); RED BLOOD CELL COUNT 4.01 M/uL (4.52-5.90); WHITE BLOOD CELL COUNT,WBC 16.86 K/uL (3.9-11.3)
[2023-12-29 20:22] LABS: INR 1.09 (0.86-1.11); PTT,PARTIAL THROMBOPLSTIN TIME 28.8 SEC (23.9-30.7)
[2023-12-29 20:36] LABS: EOSINOPHILS ABSOLUTE MAN 0.17 K/uL (0.00-0.45); EOSINOPHILS PERCENT MAN 1 % (0-6); LYMPHOCYTES ABSOLUTE MAN 9.95 K/uL (1.00-4.80); LYMPHOCYTES PERCENT MAN 59 % (24-44); MONOCYTES ABSOLUTE MAN 0.84 K/uL (0.00-0.80); MONOCYTES PERCENT MAN 5 % (0-8); SEG NEUTROPHILS PERCENT MAN 35 % (41-71)
[2023-12-29] MEDS: fentaNYL/Normal Saline 2,500 MCG in Premix Bag 1 BAG IV STA (20:36)
[2023-12-29 20:48] LABS: A/G RATIO 0.7 (0.9-1.6); ALANINE AMINOTRANSFERASE,ALT 153 IU/L (14-63); ALBUMIN 2.4 g/dL (3.4-5.0); ALKALINE PHOSPHATASE 143 U/L (46-116); ASPARTATE AMNIOTRANSFERASE,AST 164 IU/L (15-37); BILIRUBIN TOTAL 0.3 mg/dL (0.2-1.0); BLOOD UREA NITROGEN,BUN 48 mg/dL (7.0-18.0); CALCIUM 7.7 mg/dL (8.5-10.1); CARBON DIOXIDE,CO2 24.2 mmol/L (21.0-32.0); CHLORIDE,CL 104 mmol/L (98-107); CREATININE 2.5 mg/dL (0.8-1.3); GLUCOSE RANDOM 274 mg/dL (74-106); MAGNESIUM 1.9 mg/dL (1.8-2.4); POTASSIUM,K 4.4 mmol/L (3.5-5.1); PRO B-TYPE NATRIUR PEPT,BNPPRO 3326 pg/mL (0-450); PROTEIN TOTAL,TP 5.7 g/dL (6.4-8.2); SODIUM,NA 141 mmol/L (136-148)
[2023-12-29] MEDS: Sodium Chloride 0.9% 1,000 ML IV STA (20:48)
[2023-12-29 21:07] LABS: ESTIMATED GFR 24 mL/min (>60)
[2023-12-29 21:16] VITALS: BP 133/63; PULSE 70
[2023-12-29] MEDS: Glycopyrrolate 0.2 MG/ML SDV IVPUSH ONE (21:19)
[2023-12-29] MEDS: Morphine 4 MG/ML Syringe IVPUSH ONE ×2 (21:22→21:26)
[2023-12-29] MEDS ORDERED: Morphine 2 MG/ML SYRINGE IVPUSH PRN (21:23)
[2023-12-29] MEDS: Morphine 4 MG/ML Syringe ONE (21:27)
[2023-12-30] MEDS: Rocuronium 100 MG/10 ML MDV IVPUSH ONE (03:28)
[2023-12-30] MEDS ORDERED: EPINEPHrine 1:10,000 1 MG/10 ML Syringe IVPUSH ONE (20:03)
== END 2023-12-29 21:49 | disposition expired ==
LOC: MW.ED 20:02
DX: I46.9 Cardiac arrest, cause unspecified (principal); I13.0 Hypertensive heart and chronic kidney disease with heart failure and stage 1 through stage 4 chronic kidney disease, or unspecified chronic kidney disease; I50.33 Acute on chronic diastolic (congestive) heart failure; N18.9 Chronic kidney disease, unspecified; I25.2 Old myocardial infarction; E11.22 Type 2 diabetes mellitus with diabetic chronic kidney disease; Z79.4 Long term (current) use of insulin; Z79.899 Other long term (current) drug therapy; Z88.0 Allergy status to penicillin; Z91.018 Allergy to other foods; Z91.048 Other nonmedicinal substance allergy status
CPT/HCPCS: 31500; 36415; 70450; 71045; 80053; 82803; 83735; 83880; 84484; 85025; 85610; 85730; 92950; 96365; 96368; 96375; 99291; 99292; G0390; J2270; J3490; J7030; 99285; J0171